=== PATIENT | female | born 1945 | race Caucasian/White ===

== ENCOUNTER 2018-05-17 21:44 | Emergency (ER) | payer MEDICARE, SELFPAY ==
[2018-05-17 21:46] VITALS: BP 175/84; PULSE 74; RESP 18; TEMP 35.9; O2SAT 94; BMI 38.7
--- NOTE | 2018-05-17 22:23 | CT_ITS ---
STUDY: CT ABDOMEN AND PELVIS WITHOUT CONTRAST REASON FOR EXAM: Female, 72 years old. Low abdominal pain RADIATION DOSAGE (If Supplied By Facility): CTDIvol = ( 18.50 ) mGy, DLP = ( 882.56 ) mGycm TECHNIQUE: Transaxial images were obtained from the lower chest to the upper thighs without oral contrast, and without intravenous contrast. Sagittal and coronal images were reconstructed. Individualized dose optimization techniques were used for this CT. COMPARISON: None. FINDINGS: There is minimal dependent atelectasis in both lung bases. There are calcified lymph nodes in the left hilum. There is no pleural effusion. The heart is normal in size. The liver is unremarkable. There is gallbladder wall thickening with surrounding stranding. There are multiple benign calcified granulomas in the spleen. The pancreas is unremarkable. The adrenal glands are unremarkable. The right kidney is unremarkable. There is no dilatation of the collecting system in the right kidney. The left kidney is unremarkable. There is no dilatation of the collecting system in the left kidney. There is a small hiatal hernia. The small bowel is unremarkable. There are diverticula in the distal colon without adjacent stranding. The appendix is visualized and appears normal. There are minimal scattered vascular calcifications. The IVC is unremarkable. The retroperitoneum is unremarkable. There is no free fluid in the abdomen. The urinary bladder is unremarkable. The uterus is normal in size and appearance. There are no abnormal masses in the adnexal regions. There are arcuate artery calcifications. There are small phleboliths scattered in the lower pelvis. The soft tissues are unremarkable. There are mild degenerative changes in the visualized spine. There are a few nonspecific sclerotic foci scattered in the pelvis. There are mild degenerative changes in both hips. CT/Abdomen/Pelvis without Cont IMPRESSION: There is gallbladder wall thickening and surrounding inflammation, suggesting acute cholecystitis. There appears to be biliary ductal dilatation. There is diverticulosis of the distal colon. There are no acute bowel abnormalities. There is no ascites, free air or significant lymphadenopathy. Electronically Signed: Krysta Ross MD at 23:33 EDT Tel Direct: [phone], Service support ,
--- NOTE | 2018-05-17 22:40 | RAD_ITS ---
STUDY: X-RAY CHEST REASON FOR EXAM: Female, 72 years old. Abdominal pain TECHNIQUE: Frontal and lateral views of the chest were obtained. COMPARISON: None. FINDINGS: The lungs are underaerated. There are no focal airspace opacities. There is no demonstrated pleural abnormality. The cardiac silhouette is normal in size. There are calcified lymph nodes in the left hilum. Normal visualized pulmonary arteries. There is atherosclerotic calcification of the thoracic aorta. There are diffuse degenerative changes of the visualized spine. There are degenerative changes in both shoulders. There is no demonstrated abnormality of the visualized upper abdomen. RAD/Chest PA and Lateral IMPRESSION: No acute cardiopulmonary abnormalities. Electronically Signed: Krysta Ross MD at 23:35 EDT Tel Direct: [phone], Service support ,
[2018-05-17 22:43] LABS: Basophil# 0.01 X10^3/uL; Basophil% 0.1 % (0-1); Eosinophil# 0.09 X10^3/uL; Eosinophils% 0.8 % (0-5); Hematocrit 42.2 % (37-47); Hemoglobin 13.9 g/dl (12.0-15.0); Lymphocyte % 13.6 % (19-41); Mean Corp Hgb Conc 32.9 g/gl (32-36); Mean Corpuscular Volume 90.9 fL (81-99); Mean Platelet Vol. 9.8 fl (6.2-12.0); Monocyte# 0.36 X10^3/uL; Monocyte% 3.3 % (0-10); Neutrophil # 9.03 X10^3/uL (2.7-7.7); Neutrophil % 82.1 % (47-70); POSITIVE COUNT NO; POSITIVE DIFFERENTIAL NO; POSITIVE MORPHOLOGY NO; Platelet Count 212 K/mm3 (150-450); RBC Distribution Width CV 12.8 % (11.6-14.6); RBC Distribution Width SD 42.2 fl (35.1-43.9); Red Blood Count 4.64 M/mm3 (4.2-5.4)
[2018-05-17 22:57] LABS: ALB/GLOB Ratio 0.9 RATIO (0.9-2.4); AST(SGOT) 15 U/L (15-37); Alanine Aminotransfer ALT/SGPT 20 U/L (13-56); Albumin, Serum 3.7 g/dL (3.2-5.0); Alkaline Phosphatase 63 U/L (45-117); Anion Gap 6 (5-15); BUN 15 mg/dL (7-18); BUN/Creat Ratio 20.6 RATIO (10-20); Calcium,Total 8.7 mg/dL (8.5-10.1); Chloride 102 mmol/L (98-107); Creatinine, Serum 0.73 mg/dL (0.55-1.02); EST Glomerular Filtration Rate 84 mL/min (>60); Est Glom Filt Rate - Afr Amer 101 mL/min (>60); Estimated Creatinine Clearance 38.94 ml/min; Glucose 134 mg/dL (74-106); Potassium 3.3 mmol/L (3.5-5.1); Protein, Total 7.7 g/dL (6.4-8.2); Sodium Level 137 mmol/L (136-145)
--- NOTE | 2018-05-17 23:13 | ED.DCSUM_ITS ---
History of Present Illness Chief Complaint: Abd Pain Informant: Patient Onset: Today Context: Gradual Onset Timing: Continuous, Waxes and wanes Quality: cramping Location: mid-upper abd Current Severity: Mild Maximum Severity: Severe Worsened by: nothing Relieved by: nothing despite having 2 BM's Associated Symptoms: radiation into mid-back when bad. no n/v/d/BRBPR/melena, sob. Narrative: At times, pain was across her upper abdomen/lower chest, but she denies any shortness of breath or lightheadedness or palpitations. He does not recall having had this pain before although she states that the fact that she has fibromyalgia has been confusing her about this pain. Saying that she cannot tell if this is fibromyalgia discomfort or not. She states that somehow she can tell she is having fibromyalgia discomfort when she pushes on her own abdomen and at times she felt that it was. She has never had any abdominal surgeries. He denies having any radiation into an arm or a shoulder. Prior similar symptoms: No - Past Medical History (1) GERD (gastroesophageal reflux disease) Status: Chronic (2) Hypertension Status: Chronic (3) Fibromyalgia Status: Chronic Past Medical History - Allergies and Home Meds Allergies/Adverse Reactions: Allergies ampicillin Allergy (Verified 05/17/18 21:50) Rash lisinopril Allergy (Verified 05/17/18 21:50) Rash Penicillins [PCN] Allergy (Verified 05/17/18 21:50) Rash Primary Care Physician: Melany Russo MD [Primary Care Provider] - Smoking Status: Never smoker Review of Systems All systems negative except as indicated Gastrointestinal: Reports: Abdominal pain Musculoskeletal: Reports: Back pain Physical Exam Vital Signs/Narrative: Vital Signs Temp Pulse Resp BP Pulse Ox 05/17/18 21:46 96.6 F L 74 18 175/84 H 94 Inital Vital Signs reviewed: Yes General: Well nourished, Well developed, - - nad Head: Normocephalic, Atraumatic Eyes: Perrl, EOMI ENT: Moist mucous membranes, No rhinorrhea Neck: Supple, Nontender Cardiovascular: Regular rate, Regular rhythm, No murmurs Respiratory: No distress, CTA bilaterally, Chest nontender Abdomen: Soft, Nondistended, Normal bowel sounds, Tender - Mildly tender diffusely.. Negative for: Guarding, Rebound tenderness, Salinas's sign Back: Nontender, Normal Inspection. Negative for: CVA tenderness Extremities: Nontender, No edema Skin: Normal color, No rash Neurological: Alert, Oriented x3, Cranial nerves II-XII grossly intact, Normal Strength, Normal Sensation Psychological: Normal affect Diagnostic/Tx/Re-eval Impressions Abdomen/Pelvis CT 05/17/18 22:23 IMPRESSION: There is gallbladder wall thickening and surrounding inflammation, suggesting acute cholecystitis. There appears to be biliary ductal dilatation. There is diverticulosis of the distal colon. There are no acute bowel abnormalities. There is no ascites, free air or significant lymphadenopathy. Electronically Signed: Krysta Ross MD at 23:33 EDT Tel Direct: [phone], Service support , Chest X-Ray 05/17/18 22:40 IMPRESSION: No acute cardiopulmonary abnormalities. Electronically Signed: Krysta Ross MD at 23:35 EDT Tel Direct: [phone], Service support , 05/17/18 22:23 CT Abd [Abdomen/Pelvis without Cont] [CT] Stat 05/17/18 22:40 Chest PA and Lateral [RAD] Stat Laboratory Results 05/17/18 05/17/18 Range/Units 22:10 22:10 WBC 11.0 (4.4-11.0) K/mm3 RBC 4.64 (4.2-5.4) M/mm3 Hgb 13.9 (12.0-15.0) g/dl Hct 42.2 (37-47) % MCV 90.9 (81-99) fL MCH 30.0 (27.0-32.0) pg MCHC 32.9 (32-36) g/gl RDW 12.8 (11.6-14.6) % RDW Differential 42.2 (35.1-43.9) fl Plt Count 212 (150-450) K/mm3 MPV 9.8 (6.2-12.0) fl Immature Gran % (Auto) 0.100 (0.0-0.9) % Neut % (Auto) 82.1 H (47-70) % Lymph % (Auto) 13.6 L (19-41) % [place] % (Auto) 3.3 (0-10) % Eos % (Auto) 0.8 (0-5) % Baso % (Auto) 0.1 (0-1) % Absolute Neuts (auto) 9.0 H (2.0-7.7) X10^3/uL Absolute Lymphs (auto) 1.50 (0.83-4.51) X10^3/ul Total Counted Not Reportable Sodium 137 (136-145) mmol/L Potassium 3.3 L (3.5-5.1) mmol/L Chloride 102 (98-107) mmol/L Carbon Dioxide 29.0 (21.0-32.0) mmol/L Anion Gap 6 (5-15) BUN 15 (7-18) mg/dL Creatinine 0.73 (0.55-1.02) mg/dL Estim Creat Clear Calc 38.94 ml/min Est GFR (MDRD) Af Amer 101 (>60) mL/min Est GFR (MDRD) Non-Af 84 (>60) mL/min BUN/Creatinine Ratio 20.6 H (10-20) RATIO Glucose 134 H (74-106) mg/dL Calcium 8.7 (8.5-10.1) mg/dL Total Bilirubin 0.30 (0.20-1.00) mg/dL AST 15 (15-37) U/L ALT 20 (13-56) U/L Alkaline Phosphatase 63 (45-117) U/L Troponin I < 0.015 (<0.045) ng/mL Total Protein 7.7 (6.4-8.2) g/dL Albumin 3.7 (3.2-5.0) g/dL Globulin 4.0 (2.2-4.2) g/dL Albumin/Globulin Ratio 0.9 (0.9-2.4) RATIO - Rhythm Strip Rhythm Strip: Sinus Rhythm Rate: 70 Ectopy: None - EKG Initial EKG Interpretation: Sinus Rhythm, No Acute Injury Pattern, LAFB, Non-Specific ST Changes - Medical Decision Making Labs show a white blood count at the high end of the normal range with a leftward shift, no bandemia. The rest of her labs including liver enzymes and lipase are normal. Clinically, her pain almost completely resolved without any treatment here. I reexamined her. She still has no Salinas sign and is barely tender in the right upper quadrant, although her CT shows some pericholecystic stranding that may be consistent with early cholecystitis. There is no pericholecystic fluid collections or stones seen or pneumobilia. She has diverticulosis without any evidence of diverticulitis or any other acute abnormality. Chest x-ray unremarkable, cardiac workup unremarkable. On further history, she states she ate a fatty meal this morning and did get worse later and throughout the day. She has been eating high fat diet lately as well. This is very likely biliary colic. No gallstones were seen on CT, however that is not a very sensitive test for gallstones. Since she is doing so well clinically, I suspect she can safely follow-up as an outpatient with an outpatient ultrasound, unless she gets worse prior following up. Discussed with Dr. Lynch, covering for the requested Dr. Tao, who agrees with this. Patient will get outpatient ultrasound tomorrow, Sunday, and follow-up on Sunday or Sunday with surgery in the office, returning to the ER for worsening problems. We discussed symptoms of acute cholecystitis, pancreatitis , and reasons to return to the ER. She is comfortable with this plan, and will attempt a no-fat diet until seen. ED Disposition - Plan for ED Patient: Disposition: Home or Assisted Living Chief Complaint: Abd Pain Diagnosis: Biliary colic Instructions: ED Abdominal Pain Gallstone Poss Referrals: Melany Russo MD [Primary Care Provider] - Susan Lynch MD [STAFF PHYSICIAN] - (Call Sunday for appointment on Sunday or Sunday)
[2018-05-18 00:16] LABS: Mucous, Urine 0 SEEN /hpf (<or=2+); Red Blood Cells-Urine 0 SEEN /hpf (0-5)
[2018-05-18 00:41] VITALS: BP 109/73; PULSE 77; RESP 18; O2SAT 96
[2018-05-18 00:42] VITALS: BP 109/73; PULSE 77; RESP 18; O2SAT 96
[2018-05-18 00:49] LABS: Color, Urine Yellow (Yellow); Glucose, Dipstick Normal (Normal); Ketone-Dipstick Negative (Negative); Leukocyte Esterase-Dipstick 500 /ul (Negative); Nitrite-Dipstick Negative (Negative); Occult Blood-Urine 25 /ul (Negative); Protein-Dipstick Negative (Negative); Urine Bilirubin Dipstick Negative (Negative); Urine Clarity Clear (Clear); Urine Urobilinogen Normal (Normal)
[2018-05-18 00:57] LABS: Bacteria RARE /hpf (None Seen); Squamous Epithelial Cells - UA 0-5 SEEN /hpf (5-10); White Blood Cells 5-10 SEEN /hpf (0-5)
== END 2018-05-18 01:02 | disposition home or self-care (01) ==
PROVIDERS: Emergency Provider Emergency Medicine; Family Provider Internal Medicine; PCP Internal Medicine
DX: K80.50 Calculus of bile duct without cholangitis or cholecystitis without obstruction (principal); K57.30 Diverticulosis of large intestine without perforation or abscess without bleeding; K21.9 Gastro-esophageal reflux disease without esophagitis; I10 Essential (primary) hypertension; M79.7 Fibromyalgia; Z79.899 Other long term (current) drug therapy
CPT/HCPCS: 71046; 74176; 80053; 81001; 84484; 85025; 93005; 99283

== ENCOUNTER → 2018-05-22 10:59 | Outpatient (CLI) | payer MEDICARE, SELFPAY | PROVIDERS: Family Provider Internal Medicine; PCP Internal Medicine; Visit Provider Emergency Medicine | DX: R10.9 Unspecified abdominal pain (principal) | CPT/HCPCS: 76705 ==

== ENCOUNTER → 2018-05-31 10:44 | Outpatient (CLI) | payer MEDICARE, SELFPAY ==
[2018-05-31 11:54] LABS: AST(SGOT) 45 U/L (15-37); Alanine Aminotransfer ALT/SGPT 226 U/L (13-56); Albumin, Serum 3.7 g/dL (3.2-5.0); Alkaline Phosphatase 86 U/L (45-117); Bilirubin, Direct 0.13 mg/dL (0.00-0.30); Cholesterol 183 mg/dL (200); High Density Lipoprotein 37 mg/dL; Protein, Total 7.7 g/dL (6.4-8.2); Triglycerides 186 mg/dL; Very Low Density Lipoprotein 37 mg/dL (5-40)
== END ==
PROVIDERS: Family Provider Internal Medicine; PCP Internal Medicine; Visit Provider Internal Medicine Cardiovascular Disease
DX: E78.5 Hyperlipidemia, unspecified (principal)
CPT/HCPCS: 36415; 80061; 80076

== ENCOUNTER → 2018-06-05 13:27 | Outpatient (CLI) | payer MEDICARE, SELFPAY | PROVIDERS: Family Provider Internal Medicine; PCP Internal Medicine; Visit Provider Internal Medicine Cardiovascular Disease | DX: R94.31 Abnormal electrocardiogram [ECG] [EKG] (principal); K80.20 Calculus of gallbladder without cholecystitis without obstruction; I10 Essential (primary) hypertension | CPT/HCPCS: 93017; 93350; Q9957; A4216; C8928 ==

== ENCOUNTER 2018-06-19 07:56 | Day surgery (SDC) | payer MEDICARE, SELFPAY ==
[2018-06-11 11:11] VITALS: BMI 37.8
[2018-06-19 08:17] LABS: Hemoglobin 13.3 g/dl (12.0-15.0); Mean Corp Hgb Conc 33.3 g/gl (32-36); Mean Corpuscular Hgb 30.3 pg (27.0-32.0); Mean Corpuscular Volume 91.1 fL (81-99); Platelet Count 173 K/mm3 (150-450); RBC Distribution Width CV 12.7 % (11.6-14.6); RBC Distribution Width SD 42.3 fl (35.1-43.9); Red Blood Count 4.39 M/mm3 (4.2-5.4); Scan Indicated on CBC? Y/N NO; White Blood Count 5.3 K/mm3 (4.4-11.0)
[2018-06-19 08:30] LABS: Anion Gap 11 (5-15); BUN 20 mg/dL (7-18); BUN/Creat Ratio 27.7 RATIO (10-20); Calcium,Total 8.8 mg/dL (8.5-10.1); Chloride 104 mmol/L (98-107); Creatinine, Serum 0.72 mg/dL (0.55-1.02); EST Glomerular Filtration Rate 85 mL/min (>60); Est Glom Filt Rate - Afr Amer 102 mL/min (>60); Estimated Creatinine Clearance 38.94 ml/min; Glucose 99 mg/dL (74-106); Potassium 3.3 mmol/L (3.5-5.1); Sodium Level 140 mmol/L (136-145)
--- NOTE | 2018-06-19 09:57 | CL.D_ITS ---
Patient Name: ANAMIKA PERES Study Date: 06/19/2018 Performing: Sheldon Pascual MD Ht: 61.02 inches 155 cm : 1945 Wt: 200.62 lbs 91 kg Age: 72 Gender: female BSA: 1.89 PROCEDURE(S) PERFORMED MO28-PWR/COR/LV CLINICAL PROFILE AND INDICATIONS Pr requires pre-op risk stratification for cholecystectomy. Indications: Suspected CAD Heart Failure: None Stress/Imaging Stress/Image Study Performed: No Angina Classification Anginal Classification w/in 2 Weeks: No symptoms CAD Presentations: Unstable angina. Other: Dynamic ECG changes. Comorbidities/Risk Factors: Hypertension CONCLUSIONS Non obstructive coronary arteries Normal LV size, wall motion,and systolic function Elevated Left Ventricular End Diastolic Pressure RECOMMENDATIONS Management as per referring Advertising Production Manager Pt is at low risk for non cardiac, cholecystectomy surgery. Manual sheath removal. Start zocor 20mg po qhs after GB surgery; repeat FLP in 6 weeks. DESCRIPTION OF PROCEDURE The patient arrived to the procedure lab. The risks and benefits of the procedure as well as a full d escription of our services here and current unavailability of surgical backup were fully explained to the patient and/or their significant other prior to the catheterization. The Timeout was completed, verifying the correct patient and procedure. The patient's procedural site was prepped and draped in the usual fashion. Local anesthetic was given subcutaneously to right groin region with Lidocaine 2%. Using a modified Seldinger technique, arterial access was obtained via the right femoral artery, a 4 Fr sheath was inserted Left Coronary Artery selective angiography was performed in multiple views us ing a 4 Fr. JL5 catheter. Right Coronary Artery selective angiography was then performed in multiple views using a 4 Fr. 3DRC catheter. Left Ventriculography was performed in [place] projection using a 4 Fr . Pigtail catheter. LV to AO pullback pressures were then recorded.The arterial sheath was pulled and manual compression applied until hemostasis is achieved. CORONARY ANGIOGRAPHY DOMINANCE: Right Dominant LEFT HEART ASSESSMENT Left Ventricular Ejection Fraction: by LV Gram 65 % Normal LV wall motion Normal Left Ventricular systolic function Elevated Left Ventricular End Diastolic Pressure LVEDP: 18 mmHg LEFT ANTERIOR DECENDING ARTERY: Non-obstructive DIAGONAL 1: Proximal - 30 % Stenosis CIRCUMFLEX ARTERY: Angiographically normal RIGHT CORONARY ARTERY: Angiographically normal RT PDA: Proximal - Angiographically normal COMPLICATIONS No Complications PROCEDURE MEDICATIONS Versed 1 mg IV Oxygen: 2 L/min via nasal cannula Potassium Chloride 10 mEq in 100cc NS 06/19/2018 09:01:23 SUMMARY OF HEMODYNAMIC DATA Time AIR REST ECG 08:37:33 AO 156/67 (102) SA 09:41:12 LV 151/-11, 21 09:48:24 LV 149/-11, 18 09:48:30 LVp 153/-10, 21 09:48:35 AOp 153/65 (100) 09:48:40 Signed By Sheldon Pascual MD On 06/19/2018 09:57:07 Sheldon Pascual MD
== END 2018-06-19 14:25 | disposition home or self-care (01) ==
LOC: CLSP 07:56
PROVIDERS: Family Provider Internal Medicine; PCP Internal Medicine; Visit Provider Internal Medicine Cardiovascular Disease
DX: R94.31 Abnormal electrocardiogram [ECG] [EKG] (principal); I10 Essential (primary) hypertension; M79.7 Fibromyalgia; K21.9 Gastro-esophageal reflux disease without esophagitis; K80.20 Calculus of gallbladder without cholecystitis without obstruction; Z79.899 Other long term (current) drug therapy; I25.10 Atherosclerotic heart disease of native coronary artery without angina pectoris
CPT/HCPCS: 36415; 80048; 85027; 93458; 99152; J7040; C1769; C1894; Q9967

== ENCOUNTER → 2018-06-24 10:45 | Outpatient (CLI) | payer MEDICARE, SELFPAY | PROVIDERS: Family Provider Internal Medicine; PCP Internal Medicine; Visit Provider Surgery | DX: Z01.810 Encounter for preprocedural cardiovascular examination (principal) ==

== ENCOUNTER 2018-07-12 11:51 | Day surgery (SDC) | payer MEDICARE, SELFPAY ==
[2018-07-12] VITALS (12 sets, daily range): BP systolic 136–162; BP diastolic 57–84; PULSE 63–77; RESP 14–18; TEMP 36.1–36.8; O2SAT 90–100; BMI 37.0
--- NOTE | 2018-07-12 | GALL_PTH ---
PATIENT: ANAMIKA PERES [place]: [facility] [place][id number] AGE/SX: 72/F ROOM: RE07/12/[address]: Dr. Sheldon Tao MD : 1945 BED: DIS: 07/12/2018 SPEC #: [id number] RECD: 07/12/18 15:05 STATUS: BONNIE REKings #: [id number] CARMEN: 07/12/18 00:[address]: Sheldon Tao DEPT: SURGICAL PATHOLOGY RECD BY: Donald Thomas ENTERED: 07/12/18 15:05 SP TYPE: FABIAN REYES DR: Dr. Melany Russo MD Tissues: Gallbladder, NOS Procedures: Surgery Specimen Level III HEADER OPERATION: Laparoscopic cholecystectomy PRE-OP DIAGNOSIS: Cholelithiasis TISSUE SUBMITTED: Gallbladder and contents MICROSCOPIC DIAGNOSIS Gallbladder, cholecystectomy: Cholesterolosis, mild chronic cholecystitis and cholelithiasis. AM:gunnar 07/15/18 MICROSCOPIC DESCRIPTION Slides are reviewed. GROSS DESCRIPTION Received is one container labeled with the patient's name and designated gallbladder and contents. The specimen consists of a gallbladder measuring 10 cm in length and up to 5 cm in diameter. The external surface is pink-amaro, smooth and glistening for the most part. Focally it is granular, hemorrhagic and contains cautery artifact. The gallbladder contains green-yellow mucoid bile and multiple mulberry, yellowish-green stones measuring in aggregate 4 x 3 x 0.5 cm and 0.1 to 0.5 cm in greatest dimension. The mucosa is bile-stained and without any mass lesions. The mucosa also shows several yellowish streaks consistent with cholesterolosis. The gallbladder wall measures up to 0.2 cm in thickness. Semiconductor Assembler sections from the gallbladder and the cystic duct are submitted in one cassette. / SJ:gunnar 07/12/18 TC:3 CPT: 55912
--- NOTE | 2018-07-12 11:56 | EKG12_ITS ---
Test Reason : PREOP Blood Pressure : / mmHG Vent. Rate : 070 BPM Atrial Rate : 070 BPM P-R Int : 178 ms QRS Dur : 084 ms QT Int : 368 ms P-R-T Axes : 043 -22 047 degrees QTc Int : 397 ms Normal sinus rhythm Normal ECG When compared with ECG of 17-MAY-2018 22:24, T wave inversion no longer evident in Inferior leads T wave inversion less evident in Lateral leads Confirmed by QUANG MAGAÑA, FAITH ([id number]), magazine editor VONNIE SCHWARTZ ([id number]) on 07/17/2018 3:53:21 PM Referred By: Sheldon Tao Confirmed By:FAITH DEL RIO MD
--- NOTE | 2018-07-12 12:28 | PCM.HP.STD ---
Problem List (1) Calculus of gallbladder with acute on chronic cholecystitis without obstruction Status: Acute History of Present Illness Date of Admission: 07/12/18 ANAMIKA PERES, is a 72 F who presents to the office today for further evaluation of symptomatic cholelithiasis. Patient was recently seen and was [facility]'s emergency department on 05/17/2018. She was having upper abdominal and lower chest discomfort. She was not complaining of any shortness of breath or lightheadedness or palpitations. Workup in the emergency department included a CAT scan which looked as if the gallbladder wall was thickened and was consistent with probable early cholecystitis. Her liver function tests at that time were all within normal limits. She subsequently underwent a gallbladder ultrasound which showed the gallbladder wall to be 4 mm positive sonographic Salinas sign. There was no pericholecystic fluid. And multiple gallstones were noted. Common bile duct measured 5 mm. She has a known history of fibromyalgia and states that the discomfort that she was having is nothing like her fibromyalgia. Patient said that this attack came on after a week long history of eating fatty foods consistent of barbecue and cake and she subsequently developed her attack after that. She presents today for evaluation and treatment. Past Medical History Past Medical History (Chronic Problems): Chronic Problems (Last Updated 06/20/18 @ 09:32 by Janet Love) Hyperlipidemia (Chronic) Atherosclerotic heart disease of [place] coronary artery without angina pectoris (Chronic 06/19/18) Mild, nonobstructive CAD per cath done @ [facility], Dr. Pascual: 30% stenosis in first diagonal, all other coronaries normal. History of left heart catheterization (Chronic 06/19/18) Mild, nonobstructive CAD [facility] 30% stenosis in first diagonal, all other coronaries normal. Abnormal EKG (Chronic) GERD (gastroesophageal reflux disease) (Chronic) Hypertension (Chronic) Fibromyalgia (Chronic) Medical History: Medical History (Last Reviewed 07/12/18 @ 12:30 by Sheldon Tao MD) Hyperlipidemia (Chronic) E78.5 Atherosclerotic heart disease of [place] coronary artery without angina pectoris (Chronic) Onset Date: 06/19/18 I25.10 Mild, nonobstructive CAD per cath done @ [facility], Dr. Pascual: 30% stenosis in first diagonal, all other coronaries normal. Dyspnea on exertion (Acute) R06.09 Cholelithiasis (Acute) K80.20 Abnormal EKG (Chronic) R94.31 GERD (gastroesophageal reflux disease) (Chronic) K21.9 Hypertension (Chronic) I10 Fibromyalgia (Chronic) M79.7 Macular degeneration H35.30 Allergies ampicillin Allergy (Verified 07/12/18 12:17) Rash lisinopril Allergy (Verified 07/12/18 12:17) Rash Penicillins [PCN] Allergy (Verified 07/12/18 12:17) Rash Home Medications: Ambulatory Orders Medication Instructions Recorded Leticia Allergy 180 mg PO PRN PRN 05/17/18 Atenolol/Chlorthalidone 0.5 tab PO DAILY 05/17/18 [Atenolol-Chlorthalidone 100-25] Docusate Sodium 200 mg PO QHS 05/17/18 Doxepin HCl 30 mg PO QHS 05/17/18 Eszopiclone 3 mg PO QHS PRN MDD fibromalgya 05/17/18 Fluticasone 0.05% 2 spry NASAL DAILY PRN 05/17/18 Omeprazole 20 mg PO DAILY 05/17/18 Potassium Chloride 1 tab PO DAILY 05/17/18 Vits A,C,E/Lutein/Minerals 2 tab PO DAILY 05/17/18 [Healthy Eyes Caplet] Calcium Carbonate/Vitamin D3 1 ea PO DAILY 05/29/18 [Calcium 600-Vit D3 500 Softgel] Multivit-Min/Iron/Folic/Lutein 1 ea PO DAILY 05/29/18 [Centrum Silver Women Tablet] Oat Bran 1,700 mg PO DAILY 05/29/18 Vitamin E 400 unit PO DAILY 05/29/18 Aspirin [Aspirin, Baby] 81 mg PO DAILY@0800 06/19/18 simvastatin 20 mg tablet 20 mg PO .COMPLEX 06/20/18 [place]-3 Fatty Acids/Fish Oil [Fish 1 each PO DAILY 07/05/18 Oil 1,000 mg Capsule] Surgical History: Surgical History (Last Reviewed 07/12/18 @ 12:30 by Sheldon Tao MD) History of left heart catheterization (Chronic) Onset Date: 06/19/18 Z98.890 Mild, nonobstructive CAD per cath done @ [facility], Dr. Pascual: 30% stenosis in first diagonal, all other coronaries normal. S/P anal fissurectomy (Acute) Z98.890, Z87.19 Smoking Status: Never smoker - *Family History Maternal Family History: Family History (Last Updated 05/30/18 @ 15:34 by Janet Love) Mother Arrhythmia Cancer Father Myocardial infarction CAD (coronary artery disease) Carotid disease, bilateral History Items: No pertinent history Review of Systems Cardiovascular: Denies: Chest Pain, Chest Pressure, Chest Tightness, Palpitations Respiratory: Denies: Cough, Hemoptysis, Shortness of breath at rest, Shortness of breath upon exertion, Wheezing Gastrointestinal: Denies: Abdominal Pain, Constipation, Diarrhea, Hematemesis, Nausea, Melena, Vomiting VTE Information - Inpt Only VTE Present on Admission: No VTE Mechan Device Prophylaxis: SCD's VTE Pharm Prophylaxis ordered?: No Reason prophylaxis not ordered:: Treatment Not Indicated Patient Problems: Active and Suspected Problems (Last Updated 06/20/18 @ 09:32 by Janet Love) Calculus of gallbladder with acute on chronic cholecystitis without obstruction (Acute) - Physical Exam Lungs: Clear to auscultation Cardiovascular: Regular rate, Regular Rhythm, No murmurs Abdomen: Bowel Sounds Present, Soft, Non Tender, Non-Distended Vital Signs Temp Pulse Resp BP Pulse Ox 97 F L 77 16 162/82 H 96 07/12/18 12:17 07/12/18 12:17 07/12/18 12:17 07/12/18 12:17 07/12/18 12:17 Oxygen Delivery Method Room Air Weight: 195 lb 15.855 oz Body Mass Index (BMI) 37.0 Assessment/Plan All Active Problems (Last Updated 06/20/18 @ 09:32 by Janet Love) Calculus of gallbladder with acute on chronic cholecystitis without obstruction (Acute) Dyspnea on exertion (Acute) Cholelithiasis (Acute) S/P anal fissurectomy (Acute) My plan is to perform a laparoscopic cholecystectomy with possible intraoperative cholangiograms. The planned surgical procedure was discussed extensively with the patient. The risks, benefits, anticipated outcomes and possible complications were mentioned. I stuff has also explained the procedure in understandable terms and the patient was given the option to take printed material concerning the planned procedure. The patient had the opportunity to ask questions concerning the planned procedure. The patient freely consents to the planned procedure.
--- NOTE | 2018-07-12 12:32 | HP.PCM_ITS ---
Problem List (1) Calculus of gallbladder with acute on chronic cholecystitis without obstruction Status: Acute History of Present Illness Date of Admission: 07/12/18 ANAMIKA PERES, is a 72 F who presents to the office today for further evaluation of symptomatic cholelithiasis. Patient was recently seen and was [facility] emergency department on 05/17/2018. She was having upper abdominal and lower chest discomfort. She was not complaining of any shortness of breath or lightheadedness or palpitations. Workup in the emergency department included a CAT scan which looked as if the gallbladder wall was thickened and was consistent with probable early cholecystitis. Her liver function tests at that time were all within normal limits. She subsequently underwent a gallbladder ultrasound which showed the gallbladder wall to be 4 mm positive sonographic [place] sign. There was no pericholecystic fluid. And multiple gallstones were noted. Common bile duct measured 5 mm. She has a known history of fibromyalgia and states that the discomfort that she was having is nothing like her fibromyalgia. Patient said that this attack came on after a week long history of eating fatty foods consistent of barbecue and cake and she subsequently developed her attack after that. She presents today for evaluation and treatment. 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 Pascual: 30% stenosis in first diagonal, all other coronaries normal. History of left heart catheterization (Chronic 06/19/18) Mild, [facility]obstructive [facility] 30% stenosis in first diagonal, all other coronaries normal. Abnormal EKG (Chronic) GERD (gastroesophageal reflux disease) (Chronic) Hypertension (Chronic) Fibromyalgia (Chronic) Medical History: Medical History (Last Reviewed 07/12/18 @ 12:30 by Sheldon Tao MD) Hyperlipidemia (Chronic) E78.5 Atherosclerotic heart disease of [place] coronary artery without angina pectoris (Chronic) Onset Date: 06/19/18 I25.10 Mild, nonobstructive CAD per cath done @ [facility], Dr. Pascual: 30% stenosis in first diagonal, all other coronaries normal. Dyspnea on exertion (Acute) R06.09 Cholelithiasis (Acute) K80.20 Abnormal EKG (Chronic) R94.31 GERD (gastroesophageal reflux disease) (Chronic) K21.9 Hypertension (Chronic) I10 Fibromyalgia (Chronic) M79.7 Macular degeneration H35.30 Allergies ampicillin Allergy (Verified 07/12/18 12:17) Rash lisinopril Allergy (Verified 07/12/18 12:17) Rash Penicillins [PCN] Allergy (Verified 07/12/18 12:17) Rash Home Medications: Ambulatory Orders Medication Instructions Recorded Leticia Allergy 180 mg PO PRN PRN 05/17/18 Atenolol/Chlorthalidone 0.5 tab PO DAILY 05/17/18 [Atenolol-Chlorthalidone 100-25] Docusate Sodium 200 mg PO QHS 05/17/18 Doxepin HCl 30 mg PO QHS 05/17/18 Eszopiclone 3 mg PO QHS PRN MDD fibromalgya 05/17/18 Fluticasone 0.05% 2 spry NASAL DAILY PRN 05/17/18 Omeprazole 20 mg PO DAILY 05/17/18 Potassium Chloride 1 tab PO DAILY 05/17/18 Vits A,C,E/Lutein/Minerals 2 tab PO DAILY 05/17/18 [Healthy Eyes Caplet] Calcium Carbonate/Vitamin D3 1 ea PO DAILY 05/29/18 [Calcium 600-Vit D3 500 Softgel] Multivit-Min/Iron/Folic/Lutein 1 ea PO DAILY 05/29/18 [Centrum Silver Women Tablet] Oat Bran 1,700 mg PO DAILY 05/29/18 Vitamin E 400 unit PO DAILY 05/29/18 Aspirin [Aspirin, Baby] 81 mg PO DAILY@0800 06/19/18 simvastatin 20 mg tablet 20 mg PO .COMPLEX 06/20/18 [place]-3 Fatty Acids/Fish Oil [Fish 1 each PO DAILY 07/05/18 Oil 1,000 mg Capsule] Surgical History: Surgical History (Last Reviewed 07/12/18 @ 12:30 by Sheldon Tao MD) History of left heart catheterization (Chronic) Onset Date: 06/19/18 Z98.890 Mild, nonobstructive CAD per cath done @ [facility], Dr. Pascual: 30% stenosis in first diagonal, all other coronaries normal. S/P anal fissurectomy (Acute) Z98.890, Z87.19 Smoking Status: Never smoker - *Family History Maternal Family History: Family History (Last Updated 05/30/18 @ 15:34 by Janet Love) Mother Arrhythmia Cancer Father Myocardial infarction CAD (coronary artery disease) Carotid disease, bilateral History Items: No pertinent history Review of Systems Cardiovascular: Denies: Chest Pain, Chest Pressure, Chest Tightness, Palpitations Respiratory: Denies: Cough, Hemoptysis, Shortness of breath at rest, Shortness of breath upon exertion, Wheezing Gastrointestinal: Denies: Abdominal Pain, Constipation, Diarrhea, Hematemesis, Nausea, Melena, Vomiting VTE Information - Inpt Only VTE Present on Admission: No VTE Mechan Device Prophylaxis: SCD's VTE Pharm Prophylaxis ordered?: No Reason prophylaxis not ordered:: Treatment Not Indicated Patient Problems: Active and Suspected Problems (Last Updated 06/20/18 @ 09:32 by Janet Love) Calculus of gallbladder with acute on chronic cholecystitis without obstruction (Acute) - Physical Exam Lungs: Clear to auscultation Cardiovascular: Regular rate, Regular Rhythm, No murmurs Abdomen: Bowel Sounds Present, Soft, Non Tender, Non-Distended Vital Signs Temp Pulse Resp BP Pulse Ox 97 F L 77 16 162/82 H 96 07/12/18 12:17 07/12/18 12:17 07/12/18 12:17 07/12/18 12:17 07/12/18 12:17 Oxygen Delivery Method Room Air Weight: 195 lb 15.855 oz Body Mass Index (BMI) 37.0 Assessment/Plan All Active Problems (Last Updated 06/20/18 @ 09:32 by Janet Love) Calculus of gallbladder with acute on chronic cholecystitis without obstruction (Acute) Dyspnea on exertion (Acute) Cholelithiasis (Acute) S/P anal fissurectomy (Acute) My plan is to perform a laparoscopic cholecystectomy with possible intraoperative cholangiograms. The planned surgical procedure was discussed extensively with the patient. The risks, benefits, anticipated outcomes and possible complications were mentioned. I stuff has also explained the procedure in understandable terms and the patient was given the option to take printed m aterial concerning the planned procedure. The patient had the opportunity to ask questions concerning the planned procedure. The patient freely consents to the planned procedure.
--- NOTE | 2018-07-12 13:05 | PCM.OPRPT ---
Problem List (1) Calculus of gallbladder with acute on chronic cholecystitis without obstruction Status: Acute Report of Operation Date of Procedure: 07/12/18 Pre-Operative Diagnosis: k80.12 acute on chronic cholecystitis with cholelithiasis Post-Operative Diagnosis: Same Surgery/Procedure Performed:: Laparoscopic cholecystectomy Type of Anesthesia:: General Anesthesiologist: Dionte Robertson Specimen's removed: Gallbladder Estimated Blood Loss (mL): < 25 cc - Admit VTE Documentation VTE Present on Admission: No VTE Mechan Device Prophylaxis: SCD's VTE Pharm Prophylaxis ordered?: No Reason prophylaxis not ordered:: Treatment Not Indicated
--- NOTE | 2018-07-12 13:08 | DCINST_ITS ---
Discharge Diet: Light diet - advance as tolerated Discharge Activity: May Not Drive - for 2-3 days or while taking narcotic pain medications., - - Do not drive, work heavy equipment or sign legal documents for 24 hours. May shower in (days): 1 - with the bandage in place. Additional Activity Instructions:: Pain medication may cause nausea. You should typically eat light foods as you take your pain medications. Pain medication may also cause constipation. If this is a problem for you, please discuss with your doctor. Call your doctor if your incision/area has: Continuous Slow Oozing, Sudden Increased Bleeding, Increased Pain/ Swelling, Increased Redness, Foul Smelling Discharge Call your doctor if you observe: Fever of 101 or Higher Suture Line Care: Avoid Pulling/Pushing, Avoid Pinching/Bending Additional Dressing/Incision Instructions:: Leave operative bandaids on for 2 days. When you remove dressing, leave Steri-Strips on until your follow-up appointment, or until the Steri-Strips fall off on their own. Allergies/Adverse Reactions: Allergies ampicillin Allergy (Verified 07/12/18 12:17) Rash lisinopril Allergy (Verified 07/12/18 12:17) Rash Penicillins [PCN] Allergy (Verified 07/12/18 12:17) Rash Medications to take at Discharge Leticia Allergy 180 mg PO PRN PRN 05/17/18 Atenolol/Chlorthalidone [Atenolol-Chlorthalidone 100-25] 0.5 tab PO DAILY 05/17/18 Docusate Sodium 200 mg PO QHS 05/17/18 Doxepin HCl 30 mg PO QHS 05/17/18 Eszopiclone 3 mg PO QHS PRN MDD fibromalgya 05/17/18 Fluticasone 0.05% 2 spry NASAL DAILY PRN 05/17/18 Omeprazole 20 mg PO DAILY 05/17/18 Potassium Chloride 1 tab PO DAILY 05/17/18 Vits A,C,E/Lutein/Minerals [Healthy Eyes Caplet] 2 tab PO DAILY 05/17/18 Calcium Carbonate/Vitamin D3 [Calcium 600-Vit D3 500 Softgel] 1 ea PO DAILY 05/29/18 Multivit-Min/Iron/Folic/Lutein [Centrum Silver Women Tablet] 1 ea PO DAILY 05/29/18 Oat Bran 1,700 mg PO DAILY 05/29/18 Vitamin E 400 unit PO DAILY 05/29/18 Aspirin [Aspirin, Baby] 81 mg PO DAILY@0800 06/19/18 simvastatin 20 mg tablet 20 mg PO .COMPLEX 06/20/18 [place]-3 Fatty Acids/Fish Oil [Fish Oil 1,000 mg Capsule] 1 each PO DAILY 07/05/18 Oxycodone HCl/Acetaminophen [Percocet 5/325] 1 - 2 tab PO Q4H PRN PRN 5 Days #30 tab 07/12/18 The following prescriptions were given: Oxycodone HCl/Acetaminophen [Percocet 5/325] 1 - 2 tab PO Q4H PRN PRN 5 Days #30 tab PRN Reason: Pain Primary Care Physician: Melany Russo MD [Primary Care Provider] - Test Results: Test results from this visit will be discussed in further detail at your follow- up appointment, if applicable. Please Follow Up With: Sheldon Tao MD - Please call [phone] to schedule an appointment. When: 7 days after your surgery.
[2018-07-12] MEDS: Bupivacaine Mpf 0.5% 30 ML VIAL (13:45)
--- NOTE | 2018-07-12 13:49 | PCM.OPRPT ---
Problem List (1) Calculus of gallbladder with acute on chronic cholecystitis without obstruction Status: Acute Report of Operation Date of Procedure: 07/12/18 Pre-Operative Diagnosis: k80.12 acute on chronic cholecystitis with cholelithiasis Post-Operative Diagnosis: Same Surgery/Procedure Performed:: Laparoscopic cholecystectomy Type of Anesthesia:: General Anesthesiologist: Dionte Robertson Specimen's removed: Gallbladder Estimated Blood Loss (mL): < 25 cc Description of Procedure: Patient was brought into the operating room. Placed in the supine position. Under excellent general endotracheal sedation the abdomen was sterilely prepped and draped in usual fashion. Local was injected in for umbilically. Dissection was carried down to the fascia. The fascia was grasped with a Heidi's. Varies needle was placed inside the abdomen. The abdomen was insufflated to 15 torr. A 10/12 trocar was placed. Patient was placed in the head up and rotated to the left position. A subxiphoid trocar #5 was placed, inferior to the this another #5 trocar was placed, laterally a #5 trocar placed, all these under direct visualization without injury to underlying structures. Moderate amount of omental adhesions were taken down. The fundus of the gallbladder was grasped and retracted in a cephalad direction. Infundibulum was grasped retracted laterally. I dissected out the cystic duct. Hemoclips were placed proximally and distally and the duct was ligated. The cystic artery was identified. Hemoclips were placed proximally and distally. The artery was ligated. The gallbladder was delivered from the gallbladder bed with use of electrocautery. Placed a specimen a specimen bag and delivered through the umbilical port without spillage of any bile. I used electrocautery on the liver edge and I placed a small piece of Surgicel on the base of it very raw liver edge. There was no active bleeding identified. I removed the trochars under direct visualization. Good hemostasis was noted. I closed the fascia the umbilical port with a [id number] stitch of 0 Vicryl. Skin incisions were closed with septicum stitches of 4-0 Monocryl. Steri-Strips were applied. Sterile dressings were applied. The patient tolerated the procedure well. - Admit VTE Documentation VTE Present on Admission: No VTE Mechan Device Prophylaxis: SCD's VTE Pharm Prophylaxis ordered?: No Reason prophylaxis not ordered:: Treatment Not Indicated
[2018-07-12] MEDS: Acetaminophen 325 MG Tablet PO (15:37)
== END 2018-07-12 17:00 | disposition home or self-care (01) ==
LOC: SDC 11:54 → AC 11:55
PROVIDERS: Family Provider Internal Medicine; PCP Internal Medicine; Referring Provider Surgery; Visit Provider Surgery
PROC: (CPT 47610; principal; 2018-07-12 13:45)
DX: K80.12 Calculus of gallbladder with acute and chronic cholecystitis without obstruction (principal); K21.9 Gastro-esophageal reflux disease without esophagitis; Z79.899 Other long term (current) drug therapy; I10 Essential (primary) hypertension; M79.7 Fibromyalgia; E78.5 Hyperlipidemia, unspecified; I25.10 Atherosclerotic heart disease of native coronary artery without angina pectoris; H35.30 Unspecified macular degeneration; Z79.82 Long term (current) use of aspirin
CPT/HCPCS: 00790; 47562; 88304; 93005; J7120; J2405

== ENCOUNTER → 2018-09-06 11:51 | Outpatient (CLI) | payer MEDICARE, SELFPAY ==
[2018-07-12 12:17] VITALS: BMI 37.0
[2018-09-06 13:19] LABS: AST(SGOT) 19 U/L (15-37); Alanine Aminotransfer ALT/SGPT 22 U/L (13-56); Albumin, Serum 4.1 g/dL (3.2-5.0); Alkaline Phosphatase 66 U/L (45-117); Cholesterol 169 mg/dL (200); Globulin 3.9 g/dL (2.2-4.2); High Density Lipoprotein 46 mg/dL; Triglycerides 67 mg/dL; Very Low Density Lipoprotein 13 mg/dL (5-40)
--- OUTSIDE RECORDS SUMMARY | 2018-11-01 10:47 | XMS RPT_ITS ---
:1945 Author Organization [place] Support Name Relationship Address Phone KRISTOFER MOORE Unavailable [address] + [place] [address] CHARLINE MOORE Unavailable [address] + [place] [address] R Unavailable Unavailable Unavailable MOORE, KRISTOFER Unavailable [address] + [place] [address] CHARLINE MOORE Unavailable [address] + [place] [address] R Unavailable Unavailable Unavailable MOORE, KRISTOFER Unavailable [address] + [place] [address] CHARLINE MOORE Unavailable [address] + [place] [address] R Unavailable Unavailable Unavailable MOORE, KRISTOFER Unavailable [address] + [place] [address] CHARLINE MOORE Unavailable [address] + [place] [address] R Unavailable Unavailable Unavailable MOORE, KRISTOFER Unavailable [address] + [place] [address] CHARLINE MOORE Unavailable [address] + [place] [address] R Unavailable Unavailable Unavailable MOORE, KRISTOFER Unavailable [address] + [place] [address] CHARLINE MOORE Unavailable [address] + [place] [address] R Unavailable Unavailable Unavailable MOORE, KRISTOFER Unavailable [address] + [place] [address] CHARLINE MOORE Unavailable [address] + [place] [address] R Unavailable Unavailable Unavailable MOORE, KRISTOFER Unavailable [address] + [place] [address] CHARLINE MOORE Unavailable [address] + [place] [address] R Unavailable Unavailable Unavailable MOORE, KRISTOFER Unavailable [address] + [place] [address] CHARLINE MOORE Unavailable [address] + [place] [address] R Unavailable Unavailable Unavailable MOORE, KRISTOFER Unavailable [address] + [place] [address] CHARLINE MOORE Unavailable [address] + [place] [address] R Unavailable Unavailable Unavailable MOORE, KRISTOFER Unavailable [address] + [place] [address] CHARLINE MOORE Unavailable [address] + [place] [address] R Unavailable Unavailable Unavailable MOORE, KRISTOFER Unavailable [address] + [place] [address] CHARLINE MOORE Unavailable [address] + [place] [address] R Unavailable Unavailable Unavailable MOORE, KRISTOFER Unavailable [address] + [place] [address] CHARLINE MOORE Unavailable [address] + [place] [address] R Unavailable Unavailable Unavailable MOORE, KRISTOFER Unavailable [address] + [place] [address] CHARLINE MOORE Unavailable [address] + [place] [address] R Unavailable Unavailable Unavailable MOORE, KRISTOFER Unavailable [address] + [place] [address] CHARLINE MOORE Unavailable [address] + [place] [address] R Unavailable Unavailable Unavailable MOORE, KRISTOFER Unavailable Unavailable + CHARLINE MOORE Unavailable [address] + [place] [address] R Unavailable Unavailable Unavailable MOORE, KRISTOFER Unavailable . + [place] [address] CHARLINE MOORE Unavailable [address] + [place] [address] R Unavailable Unavailable Unavailable MOORE, KRISTOFER Unavailable [address] + [place] [address] CHARLINE MOORE Unavailable [address] + [place] [address] R Unavailable Unavailable Unavailable MOORE, KRISTOFER Unavailable . + [place] [address] CHARLINE MOORE Unavailable [address] + [place] [address] R Unavailable Unavailable Unavailable MOORE, KRISTOFER Unavailable Unavailable + CHARLINE MOORE Unavailable [address] + [place] [address] R Unavailable Unavailable Unavailable MOORE, KRISTOFER Unavailable Unavailable + CHARLINE MOORE Unavailable [address] + [place] [address] R Unavailable Unavailable Unavailable Care Team Providers Name Role Phone TALAMPAS, ADEEL D Referring Unavailable TALAMPAS, ADEEL D Attending Unavailable TALAMPAS, ADEEL D Referring Unavailable VICTORIA THOMPSON Attending Unavailable TALAMPAS, ADEEL D Referring Unavailable TALAMPAS, ADEEL D Attending Unavailable TALAMPAS, ADEEL D Referring Unavailable Talampas, Adeel Primary Care Unavailable ROBY GALLO Attending Unavailable Sheldon Tao Attending Unavailable Talampas, Adeel Referring Unavailable ROBY GALLO Attending Unavailable ROBY GALLO Referring Unavailable Talampas, Adeel Primary Care Unavailable Sheldon Tao Attending Unavailable Talampas, Adeel Referring Unavailable Sheldon Tao Attending Unavailable Talampas, Adeel Referring Unavailable Talampas, Adeel Primary Care Unavailable Sheldon Tao Attending Unavailable Sheldon Tao Referring Unavailable Talampas, Adeel Primary Care Unavailable Sheldon Pascual Attending Unavailable Talampas, Adeel Referring Unavailable Talampas, Adeel Primary Care Unavailable Pascual, Sheldon Attending Unavailable Pascual, Sheldon Referring Unavailable Talampas, Adeel Primary Care Unavailable Pascual, Sheldon Attending Unavailable Pascual, Sheldon Referring Unavailable Talampas, Adeel Primary Care Unavailable Pascual, Sheldon Attending Unavailable Pascual, Sheldon Referring Unavailable Talampas, Adeel Primary Care Unavailable Kate, Danna A Attending Unavailable Talampas, Adeel Referring Unavailable Pascual, Sheldon Attending Unavailable Pascual, Sheldon Referring Unavailable Talampas, Adeel Primary Care Unavailable Pascual, Sheldon Attending Unavailable Pascual, Sheldon Referring Unavailable [place], Sheldon Attending Unavailable [place], Sheldon Referring Unavailable Talampas, Adeel Primary Care Unavailable Aislinn, Sheldon Attending Unavailable [place], Sheldon Referring Unavailable Talampas, Adeel Primary Care Unavailable [place], Sheldon Consulting Unavailable Pascual, Sheldon Attending Unavailable Pascual, Sheldon Referring Unavailable Aislinn, Sheldon Attending Unavailable Talampas, Adeel Referring Unavailable Malu, Deny Attending Unavailable [place], Sheldon Referring Unavailable Referred, Self Attending Unavailable Talampas, Adeel Primary Care Unavailable Pascual, Sheldon Attending Unavailable Pascual, Sheldon Referring Unavailable Talampas, Adeel Primary Care Unavailable Pascual, Sheldon Attending Unavailable Talampas, Adeel Referring Unavailable PROBLEMS PROBLEMS DATE TYPE CONDITION / CODE ATTENDING STATUS SOURCE 09/12/2018 Unknown E78.5 - Ankur Sheldon Active [place] Hyperlipidemia, Community unspecified / Hospital E78.5(ICD-10) Repository 09/12/2018 Unknown I25.10 - Sheldon Pascual Active [place] Atherosclerotic heart Community disease [facility] coronary artery Repository without angina pectoris / I25.10(ICD-10) 08/06/2018 Active Hypokalemia / NA Active [place] E87.6(ICD-10) Clinic Main [place] Repository 08/08/2018 Unknown Z51.89 - Encounter for [place], Active [place] other specified [facility] aftercare / Hospital Z51.89(ICD-10) Repository 07/12/2018 Unknown K80.12 - Calculus of [place]isl[place], Active [place] gallbladder with acute [facility] and chronic Hospital cholecystitis without Repository obstruction / K80.12(ICD-10) 08/19/2018 Unknown I10 - Essential Malu, Deny Active [place] (primary) hypertension Community / I10(ICD-10) Hospital Repository 07/17/2018 Unknown R94.31 - Abnormal Sheldon Pascual Active [place] electrocardiogram Community [ECG] [EKG] / Hospital R94.31(ICD-10) Repository 05/30/2018 Unknown K80.20 - Calculus of Sheldon Pascual Active [place] gallbladder without Community cholecystitis without Hospital obstruction / Repository K80.20(ICD-10) 05/30/2018 Unknown Z01.810 - Encounter Sheldon Pascual for preprocedural [facility] Hospital examination / Repository Z01.810(ICD-10) 08/03/2015 Active Essential (primary) NA Active [place] hypertension / Clinic Main I10(ICD-10) [place] Repository 01/25/2018 Active Impaired fasting NA Active [place] glucose / Clinic Main R73.01(ICD-10) [place] Repository PROCEDURES PROCEDURES No Procedure Records FoundRESULTS RESULTS CARDIOLOGY VISIT Observed: 09/12/2018 Status: F Source: [place] 11:24 AM [facility] [place] [facility] [address] [place] [address] OFFICE VISIT Date of Service: 09/12/18 MR#: [id number] Acct: [id number] Name: ANAMIKA LI Rep #: [id number] : 1945 Provider: Sheldon Pascual MD Age/Sex: 73/F [place] [facility] [place] Status: Signed HPI HPI Chief Complaint: cardiac risk stratification Details: ANAMIKA LI, is a 72 F who presents to the office today for cardiac risk stratification for upcoming gallbladder surgery by Dr. Tao. Patient is a 72-year-old nondiabetic non-smoking female, with hypertension which is well-controlled, unknown cholesterol, no previous cardiovascular disease. Patient denies any chest pain, angina, shortness of breath or dyspnea on exertion, and is recently been under a significant amount of psychosocial stress due to her hot water tank breaking in her landlord not fixing it. Patient developed a gallbladder attack with abdominal pain requiring visitation to [facility] ER on 05/17/18. At that time an EKG was performed which showed normal sinus rhythm with what appeared to be dynamic anterior lateral T-wave and ST segment depression. Patient was found by ultrasound to have cholelithiasis and mild gallbladder wall thickening and positive sonographic [place] sign diagnostic for acute cholecystitis. Patient was referred to our office for cardiac risk stratification given the abnormal EKG. Patient underwent a stress echocardiogram on 06/05/18 which was negative for inducible ischemia. Nonetheless out of an abundance of caution she underwent a diagnostic coronary angiogram on 06/19/18 which demonstrated nonobstructive coronary disease, normal LV function, and elevated LVEDP. She denies any previous CVA. She is asymptomatic from a chest pain standpoint. Patient underwent successful cholecystectomy and is now here in follow-up. Her symptoms have completely resolved. She feels great. She is taking and tolerating her medicines well. She has no cardiac symptoms at this time. In our office today her blood pressure is 120/70, pulse is 56 and regular. Her physical exam demonstrates moderate obesity, clear lungs bilaterally, regular rate and rhythm, normal S1/S2, no S3 or S4. No murmurs are detected. She has no edema. Lipids as of 09/06/18 show an LDL of 110 and HDL of 46. Intake Vital Signs09/12/18 Height 5 ft 1 in 09/12/18 Weight: 199 lb 09/12/18 Body Mass Index (BMI) 37.5 09/12/18 Blood Pressure 120/70 Intake Visit Reasons: F/U AFTER GALLBLADDER SURG PER DJN Allergies ampicillin Allergy (Verified 09/12/18 11:09) Rash lisinopril Allergy (Verified 09/12/18 11:09) Rash Penicillins [PCN] Allergy (Verified 09/12/18 11:09) Rash simvastatin Adverse Reaction (Severe, Verified 09/12/18 11:09) Myalgias, flu like sx Medications Leticia Allergy 180 mg PO PRN PRN 05/17/18 [History Confirmed 09/12/18] Atenolol/Chlorthalidone [Atenolol-Chlorthalidone 100-25] 0.5 tab PO DAILY 05/17/18 [History Confirmed 09/12/18] Docusate Sodium 200 mg PO QHS 05/17/18 [History Confirmed 09/12/18] Doxepin HCl 30 mg PO QHS 05/17/18 [History Confirmed 09/12/18] Eszopiclone 3 mg PO QHS PRN MDD fibromalgya 05/17/18 [History Confirmed 09/12/18] Fluticasone 0.05% 2 spry NASAL DAILY PRN 05/17/18 [History Confirmed 09/12/18] Omeprazole 20 mg PO DAILY 05/17/18 [History Confirmed 09/12/18] Potassium Chloride 1 tab PO DAILY 05/17/18 [History Confirmed 09/12/18] Vits A,C,E/Lutein/Minerals [Healthy Eyes Caplet] 2 tab PO DAILY 05/17/18 [History Confirmed 09/12/18] Calcium Carbonate/Vitamin D3 [Calcium 600-Vit D3 500 Softgel] 1 ea PO DAILY 05/29/18 [History Confirmed 09/12/18] Multivit-Min/Iron/Folic/Lutein [Centrum Silver Women Tablet] 1 ea PO DAILY 05/29/18 [History Confirmed 09/12/18] Oat Bran 1,700 mg PO DAILY 05/29/18 [History Confirmed 09/12/18] Vitamin E 400 unit PO DAILY 05/29/18 [History Confirmed 09/12/18] Aspirin [Aspirin, Baby] 81 mg PO DAILY@0800 06/19/18 [History Confirmed 09/12/18] Peoa-3 Fatty Acids/Fish Oil [Fish Oil 1,000 mg Capsule] 1 ea PO DAILY 07/05/18 [History Confirmed 09/12/18] cholecalciferol (vitamin D3) 1,000 unit tablet 1,000 unit PO DAILY 09/12/18 [History Confirmed 09/12/18] gemfibrozil 600 mg tablet 600 mg PO BID #180 tab 09/12/18 [Rx Confirmed 09/12/18] [facility] Medical History Hyperlipidemia (Chronic) Atherosclerotic heart disease of [place] coronary artery without angina pectoris (Chronic 06/19/18) Dyspnea on exertion (Acute) Cholelithiasis (Acute) Abnormal EKG (Chronic) GERD (gastroesophageal reflux disease) (Chronic) Hypertension (Chronic) Fibromyalgia (Chronic) Macular degeneration (Acute) Surgical History History of left heart catheterization (Chronic 06/19/18) S/P anal fissurectomy (Acute) S/P laparoscopic cholecystectomy (Acute 07/12/18) Family History Mother , of cancer Arrhythmia Cancer Father , of [place] Myocardial infarction CAD (coronary artery disease) Carotid disease, bilateral Social History Smoking Status: Never smoker alcohol intake: never ROS Const Const: Positive for other (Feels well since gallbladder out, but has rt.sciatic pain.); negative for fatigue, weakness, body ache, fever(s), headache(s), chills, frequent falls, night sweats, daytime sleepiness, difficulty sleeping, excessive sweating, weight gain, weight loss, increased appetite, poor appetite or anorexia Eyes Eyes: Negative for blind spots, loss of peripheral vision, transient loss of vision, blurry vision, change in vision, double vision, floaters, tunnel vision or other ENT ENT: Negative for headache(s), dizziness, hearing loss, tinnitus, Nosebleed/epistaxis, balance problems, post nasal drip, lip swelling, tongue swelling, bleeding gums, hoarseness, neck pain, dry mouth or other Cardio Chest Pain: No Palpitations: No Edema: None Muscle aches with walking: None Resp Respiratory: Negative for SOB with activity, SOB at rest, SOB orthopnea\SOB lying down, Cough, Coughing up blood/hemoptysis, chest congestion, pain on inspiration, snoring, stridor, wheezing, crackles, paroxysmal nocturnal dyspnea or other GI GI: Negative nausea, vomiting, heartburn, constipation, belching, bloating, cramping, vomiting blood/hematemesis, bright, red blood in stools, black,tarry stools, loose stools, Difficulty Swallowing or other : Negative for hematuria, frequent nighttime urination/ nocturia, erectile dysfunction or abnormal vaginal bleeding Musc Musc: Negative for balance problems, muscle aches/ myalgia, muscle weakness or joint pain Skin Skin: Negative redness, non-healing lesions, rash, unusual bruising, skin ulcer, wounds, jaundice or other Neuro Neuro: Negative for weakness, headache(s), frequent falls, blurry vision, double vision, dizziness, lightheadedness, near syncope, syncope, orthostatic symptoms, confusion, memory loss, restless legs, vertigo, seizures, lack of coordination or other Mayur Hematologic/Lymphatic: Negative for easy bleeding, easy bruising, enlarged lymph nodes or other Endo Endo: Negative for fatigue, excessive sweating, cold intolerance, heat intolerance, flushing, increased thirst/drinking, increased hunger, hair loss, hair growth or other Psych Psych: Negative for anxiety, depression, thoughts of harming anyone, thoughts of harming yourself, visual hallucinations, panic attacks or audible hallucinations Allergy Allergy/Immunology: Negative for lip swelling, Negative for tongue swelling, Negative for rash, Negative for throat swelling, Negative for hives Cardiology Exam Const Appearance: cooperative, healthy appearing and no acute distress Nutritional Appearance: well nourished Orientation: alert, oriented x3 and oriented to person Head Head: normal to inspection, atraumatic and normocephalic Nose: external nose normal Face and Sinus: face symmetric Mouth: oral mucosae normal Eyes General: appearance normal, both eyes and all related structures Eyelids: eyelids normal Conjunctivae: conjunctivae normal Pupils: PERRL and normal by confrontation EOM: EOM intact bilaterally Neck Neck: normal visual inspection and full ROM Carotids: normal carotid upstroke Chest Chest inspection: normal inspection of the chest Auscultation: Bilateral: Clear to Auscultation Cardio Palpation: normal PMI Rate: regular rate Rhythm: regular rhythm Heart sounds: S1 normal and S2 normal GI GI: normal to inspection, no hepatosplenomegaly and bowel sounds present Neuro General: alert, oriented x3, awake, CN's II-XI intact bilaterally and moves all extremities Skin Skin: no rashes or lesions noted Extremities Pulses: Normal: Right Femoral Pulse, Left Femoral Pulse, Right Dorsalis Pedis Pulse, Left Dorsalis Pedis Pulse, Right Posterior Tibial Pulse, Left Posterior Tibial Pulse, Right Radial Pulse, Left Radial Pulse Lower Extremity Edema: None: Bilateral Psych Psychological: normal affect Assessment AND Plan 1. Atherosclerotic heart disease of [place] coronary artery without angina pectoris I25.10 Mild, nonobstructive CAD per cath done @ [facility], Dr. Pascual: 30% stenosis in first diagonal, all other coronaries normal. Plan 1. Coronary artery disease: No exertional anginal symptoms at this time. No indication for any additional testing. She has minimal nonobstructive coronary disease and is asymptomatic. I recommended she continue baby aspirin, atenolol/chlorthalidone. 2. Hyperlipidemia E78.5 Plan 2. Hyperlipidemia: Her LDL and HDL cholesterol are fairly well-controlled. Continue gemfibrozil and omega-3 fatty acids. 3. Return office in 6 months. This note was generated using a voice recognition system and there may be incorrect words, spelling or punctuation that were not noted when reviewing the office note prior to saving. Plan Detail Other Medications Refilled: Follow Up +6M ([place]) Coding Level of Care Code Off vis,est,level 3 Diagnoses Atherosclerotic heart disease of [place] coronary artery without angina pectoris I25.10 Hyperlipidemia E78.5 Coding Level of Care Code Off vis,est,level 3 Diagnoses Atherosclerotic heart disease of [place] coronary artery without angina pectoris I25.10 Hyperlipidemia E78.5 09/12/18 1124 <Electronically signed by Sheldon Pascual MD> Date Sheldon Pascual MD Cosigner Signature: Date (if applicable) CC: Adeel Russo MD LIVER PROFILE Collected: 09/06/2018 Status: F Source: [place] 11:57 AM [facility] [place] TYPE CODE TESTS RESULT OUT OF RANGE REFERENCE UNITS LAB L501.1500 6.4-8.2 g/dL Normal T PROT 8.0 LAB L501.1800 3.2-5.0 g/dL Normal ALB 4.1 LAB L501.1950 2.2-4.2 g/dL Normal GLOB 3.9 LAB L501.4100 15-37 U/L Normal AST 19 LAB L501.4305 45-117 U/L Normal ALK P 66 LAB L501.4405 13-56 U/L Normal ALT 22 LAB L501.4600 0.20-1.00 mg/dL Normal T BILI 0.50 LAB L501.4700 0.00-0.30 mg/dL Normal D BILI 0.10 Performed By: #### L500.3400, L500.4100 #### [facility] [address] [place], [address] LIPID PROFILE Collected: 09/06/2018 Status: F Source: [place] 11:57 [facility] REPOSITORY TYPE CODE TESTS RESULT OUT OF RANGE REFERENCE UNITS LAB L501.4900 200 mg/dL Normal CHOL 169 Result Comment: <200 mg/dL Desirable 200-240 mg/dL Borderline >240 mg/dL High Risk LAB L501.5000 mg/dL Normal TRIG 67 Result Comment: The drugs N-Acetylcysteine and Metamizole may falsely depress this assay. Serum Triglycerides Reference Interval Normal <150 mg/dL Borderline high 150 - 199 mg/dL High 200 - 499 mg/dL Very High > or = 500 mg/dL LAB L501.6400 mg/dL Normal HDL 46 Result Comment: The drugs N-Acetylcysteine and Metamizole may falsely depress this assay. Reference Range HDL <40 mg/dL Low HDL Cholesterol HDL >or= 60 mg/dL High HDL Cholesterol LAB L501.6500 0-130 mg/dL Normal LDL 110 LAB L501.6600 5-40 mg/dL Normal VLDL 13 Performed By: #### L500.3400, L500.4100 #### [facility] [address] [place], [address] PROGRESS Observed: 08/16/2018 Status: COMPLETED Source: [place] 1:32 PM [facility] REPOSITORY HNO ID: [id number] Author: Tammie Mesa LPN Service: (none) Author Type: (none) Type: Progress Notes Filed: 08/23/2018 10:49 PM Note Text: received approval from [facility] for doxepin - good until 08/15/2020 PROGRESS Observed: 08/12/2018 Status: COMPLETED Source: [place] 12:33 PM [facility] REPOSITORY HNO ID: [id number] Author: Adeel Russo Service: (none) Author Type: Physician Type: Progress Notes Filed: 08/23/2018 10:49 PM Note Text: Patient presents with: Recheck: Follow up Imm/Inj: Flu Vaccine SUBJECTIVE: Anamika Li is a 73 year old year old lady here today for 6 month follow up appointment for review of medical conditions. Had sore throat and swelling of throat and aching from Zocor 20mg daily. Stopped after 10 days since got bad with symptoms. Stopped the med. Dr. Pascual's office to call with alternative med. Lunesta 3mg at HS and Doxepin 2 pills at HS needed for sleep.Has been taking current dose. Lower dose note effective. Needs to keep sleep on track to control depression and anxiety. Noted issues with right index finger from computer mouse. Plays computer games, etc. Finger gets stiff. Continues to need Lunesta 3 mg nightly for insomnia. Had tried other formulary meds over the years and nothing worked as well without adverse effects. PAST MEDICAL HISTORY Diagnosis Date - Carpal tunnel syndrome - Depressive disorder, not elsewhere classified - Esophageal reflux - Macular degeneration (senile) of retina, unspecified - Myalgia and myositis, unspecified - Obesity, unspecified - Unspecified essential hypertension Current Outpatient Prescriptions: aspirin, enteric coated (ASPIRIN, ENTERIC COATED) 81 mg EC tablet Take 81 mg by mouth once daily. eszopiclone (LUNESTA) 3 mg tab Take 1 tablet by mouth at bedtime as needed for up to 90 days. AT BEDTIME. Atenolol-Chlorthalidone 100-25 mg per tablet TAKE 1/2 TABLET ONE TIME DAILY fluticasone (FLONASE) 50 mcg/actuation nasal spray USE 2 SPRAYS IN EACH NOSTRIL ONE TIME DAILY omeprazole (PRILOSEC) 20 mg capsule TAKE 1 CAPSULE EVERY DAY potassium chloride ER (K-DUR, KLOR-CON) 10 mEq tablet TAKE 1 TABLET EVERY DAY fexofenadine (LETICIA ALLERGY) 180 mg tablet Take 1 tablet by mouth once daily. vit A,C,K-Iqnl-Denczw 7,160-113-100 nwej-yw-ruas ORAL Tab Take by mouth. As directed. Lutein 10 mg ORAL Tab Take by mouth. As directed. cholecalciferol(VITAMIN D 2,000 UNIT CAP) Take one(1) tablet daily. naproxen sodium(ALEVE 220 MG TAB) Take one(1) tablet twice daily. OMEGA 3 550 MG CAP Take one(1) tablet daily. OAT BRAN 500 MG TAB 2 tabs in am MULTIVITAMIN ORAL TAB Take one(1) tablet daily. CALCIUM + D 600 MG-200 UNIT ORAL TAB Take one(1) tablet two(2) times daily. TYLENOL EXTRA STRENGTH 500 MG ORAL TAB Take two(2) tablets every four(4) to six(6) hours as needed. amitriptyline (ELAVIL) 25 mg tablet Take 1-2 tablets by mouth daily at bedtime. As directed (Patient not taking: Reported on 08/12/2018 ) montelukast (SINGULAIR) 10 mg tablet Take 1 tablet by mouth daily at bedtime. (Patient not taking: Reported on 08/12/2018 ) No current facility-administered medications for this visit. OBJECTIVE: BP 136/78 Pulse 72 Resp 20 Wt 89.4 kg (197 lb) BMI 37.22 kg/m? Patient is alert, oriented times 3, no apparent distress, affect is bright, reactive. Last 5 Encounter BP Readings: Date: BP: 08/12/2018 136/78 02/04/2018 138/80 07/28/2017 132/78 02/10/2017 124/78 01/23/2017 122/84 Last 5 Encounter Wt Readings: Date: Wt: 08/12/2018 89.4 kg (197 lb) 02/04/2018 92.1 kg (203 lb) 07/28/2017 88.9 kg (196 lb) 02/10/2017 101.2 kg (223 lb) 01/23/2017 101.2 kg (223 lb) Heart: Regular rate, rhythm, no murmurs, gallops, rubs. Lungs: Clear to auscultation, bilaterally, breathing non labored. Ext: No cyanosis, clubbing, or edema. Normal function fingers; mild OA changes in IP joints. Component Latest Ref Rng AND Units 01/27/2016 01/17/2017 07/23/2017 02/01/2018 05/31/2018 08/06/2018 Protein, Total 6.3 - 8.0 g/dL 7.3 Albumin 3.9 - 4.9 g/dL 4.2 Calcium 8.5 - 10.2 mg/dL 9.2 9.0 9.2 9.3 9.6 Bilirubin, Total 0.2 - 1.3 mg/dL 0.3 Alkaline Phosphatase 34 - 123 U/L 55 AST 13 - 35 U/L 24 Glucose 74 - 99 mg/dL 95 96 89 94 93 BUN 7 - 21 mg/dL 14 24 (H) 17 17 12 Creatinine 0.58 - 0.96 mg/dL 0.63 (L) 0.63 0.65 0.66 0.61 Sodium 136 - 144 mmol/L 137 138 139 138 140 Potassium 3.7 - 5.1 mmol/L 3.7 3.9 3.7 3.5 (L) 3.6 (L) Chloride 97 - 105 mmol/L 97 (L) 98 98 98 101 CO2 22 - 30 mmol/L 29 26 28 28 25 Anion Gap 9 - 18 mmol/L 11 14 13 12 14 ALT 7 - 38 U/L 12 eGFR- >60 >60 >60 >60 >60 eGFR-All Other Races . >60 >60 >60 >60 >60 WBC 3.70 - 11.00 k/uL 6.56 RBC 3.90 - 5.20 m/uL 4.60 Hemoglobin 11.5 - 15.5 g/dL 14.0 Hematocrit 36.0 - 46.0 % 43.2 MCV 80.0 - 100.0 fL 93.9 MCH 26.0 - 34.0 pG 30.4 MCHC 30.5 - 36.0 g/dL 32.4 RDW-CV 11.5 - 15.0 % 12.7 Platelet Count 150 - 400 k/uL 229 MPV 9.0 - 12.7 fL 11.0 Cholesterol, Total mg/dL 192 183 Triglyceride mg/dL 167 (H) 186 HDL Cholesterol >39 mg/dL 49 LDL Cholesterol <100 mg/dL 110 (H) Non HDL Cholesterol <130 mg/dL 143 (H) Fasting Time hrs 14 VLDL Cholesterol 5 - 40 mg/dL 33 (H) 37 TC:HDL Ratio <5.10 3.92 LDL:HDL Ratio <2.54 2.24 HDL CHOLESTEROL mg/dL 37 LDL Cholesterol 0 - 130 mg/dL 109 Hemoglobin A1C 4.3 - 5.6 % 5.7 (H) 5.8 (H) 5.5 5.5 Estimated Average Glucose mg/dL 117 120 111 111 Magnesium 1.7 - 2.3 mg/dL 2.1 Occult Blood, Stool Negative Negative Hep C Antibody IA Negative Negative ASSESSMENT AND PLAN: Encounter Diagnosis ICD-10-CM 1. 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 Essential hypertension I10 3. Fibromyalgia M79.7 4. Class 2 obesity due to excess calories without serious comorbidity with body mass index (BMI) of 37.0 to 37.9 in adult E66.09 Z68.37 5. Need for vaccination Z23 INFLUENZA SEASONAL HIGH DOSE AGE 65+ 6. Impaired fasting glucose R73.01 7. Anxiety state F41.1 8. Reactive depression F32.9 Above issues addressed with patient. Patient involved in shared decision making for management of medical issues. History and medications reviewed. Epic updated as needed Refills taken care of and meds adjusted as indicated after reviewed history, exam and labs. Health Maintenance reviewed. Updated record and/or ordered tests as recorded. Encouraged on efforts at healthy diet and regular exercise and adequate sleep. Needs to keep working on diet and exercise with lifestyle changes for effective weight loss as well as prevention of DM, and control of BP and lipids. Has been gradually losing weight. Encouraged to keep up portion control and better choices of foods. Stay as active as able. Discussed prevention of problems with index finger from use of computer mouse. Avoid staying on computer for too long. Hand exercises as discussed. Stable with control of insomnia. No signs of diversion or abuse of medication(s); no adverse effects. Continue present management. PDMP website checked and validated. All prescriptions have been APPROPRIATELY filled. No suspicious activity was identified. 08/12/2018 by Adeel Russo MD The majority of the visit was spent counseling and/or coordinating care for the patient. Sibt-fq-zwzz time was at least 25 minutes. Adeel Russo MD PROGRESS Observed: 08/12/2018 Status: COMPLETED Source: [place] 12:17 PM [facility] REPOSITORY [facility] ID: [id number] Author: Brittany Phelan LPN Service: (none) Author Type: (none) Type: Progress Notes Filed: 08/23/2018 10:49 PM Note Text: 73 year old female here for INACTIVATED INFLUENZA VACCINE. 9669-7011 Season Patient is identified by name and date of : Yes [] CONTRAINDICATIONS color enhanced section Age less than 6 months? No Allergy to eggs, chicken, chicken feathers, or chicken dander? No Allergy to thimerosal (a preservative) or formaldehyde, gelatin? No History of severe reaction to any vaccine component or a previous dose of influenza vaccination? No History of Guillain-Jesup Syndrome within 6 weeks after a previous influenza vaccine? No Patient is not moderately or severely ill? No Current temperature greater or equal to 100.4F? No History of Bone Marrow Transplant prior 6 months or solid organ transplant in the past 3 months ? No History of fainting after a prior injection or medical procedure? No- ? If patient has fainted in the past, the CDC recommends sitting or lying down for 15 minutes after the vaccination. [] VERIFICATION color enhanced section Was the answer Yes for any of the above contraindications? No contraindications present. Acceptable to proceed with vaccine. Patient/guardian agrees the above answers are true to the best of their knowledge? Yes Flu vaccine information sheet given? Yes See immunization activity in [facility] for details of immunizations adminstered today. Patient age: [age] year old For The 6462-2426 Flu Season 6-35 months old: Fluzone 0.25 ml - IM (Preservative Free) 3 years of age: Fluzone 0.5 ml - IM (Preservative Free) 3 years and older: Fluzone 0.5 ml- IM-(with Preservatives) 65+ years old: 2-49 years old Fluzone High-Dose 0.5 ml - IM (Preservative Free) FLUMIST- intranasal REMEMBER: If patient is less than 9 years of age and this is the first vaccine of Influenza to be received in any flu season, they should receive a second dose in one months time. CNOV Observed: 08/12/2018 Status: COMPLETED Source: [place] 11:00 AM [facility] REPOSITORY Office Visit (INTMWS) ANAMIKA LI ([id number]) 1945 F Date Time Provider Department 08/12/18 11:00 AM TALADEEL JOHNSON During your visit today, we recorded the following information about you: Pulse Respiration Blood pressure Weight 72/minute 20/minute 136/78 89.4 kg Brittany Phelan MANJEET 08/23/2018 10:49 PM Signed 73 year old female here for INACTIVATED INFLUENZA VACCINE. Season Patient is identified by name and date of : Yes [] CONTRAINDICATIONS color enhanced section Age less than 6 months? No Allergy to eggs, chicken, chicken feathers, or chicken dander? No Allergy to thimerosal (a preservative) or formaldehyde, gelatin? No History of severe reaction to any vaccine component or a previous dose of influenza vaccination? No History of Guillain-Jesup Syndrome within 6 weeks after a previous influenza vaccine? No Patient is not moderately or severely ill? No Current temperature greater or equal to 100.4F? No History of Bone Marrow Transplant prior 6 months or solid organ transplant in the past 3 months ? No History of fainting after a prior injection or medical procedure? No- ? If patient has fainted in the past, the CDC recommends sitting or lying down for 15 minutes after the vaccination. [] VERIFICATION color enhanced section Was the answer Yes for any of the above contraindications? No contraindications present. Acceptable to proceed with vaccine. Patient/guardian agrees the above answers are true to the best of their knowledge? Yes Flu vaccine information sheet given? Yes See immunization activity in [facility] for details of immunizations adminstered today. Patient age: [age] year old For The 8505-2306 Flu Season 6-35 months old: Fluzone 0.25 ml - IM (Preservative Free) 3 years of age: Fluzone 0.5 ml - IM (Preservative Free) 3 years and older: Fluzone 0.5 ml- IM-(with Preservatives) 65+ years old: 2-49 years old Fluzone High-Dose 0.5 ml - IM (Preservative Free) FLUMIST- intranasal REMEMBER: If patient is less than 9 years of age and this is the first vaccine of Influenza to be received in any flu season, they should receive a second dose in one months time. Adeel Russo MD 08/23/2018 10:49 PM Signed Patient presents with: Recheck: Follow up Imm/Inj: Flu Vaccine SUBJECTIVE: Anamika Li is a 73 year old year old lady here today for 6 month follow up appointment for review of medical conditions. Had sore throat and swelling of throat and aching from Zocor 20mg daily. Stopped after 10 days since got bad with symptoms. Stopped the med. Dr. Pascual's office to call with alternative med. Lunesta 3mg at HS and Doxepin 2 pills at HS needed for sleep.Has been taking current dose. Lower dose note effective. Needs to keep sleep on track to control depression and anxiety. Noted issues with right index finger from computer mouse. Plays computer games, etc. Finger gets stiff. Continues to need Lunesta 3 mg nightly for insomnia. Had tried other formulary meds over the years and nothing worked as well without adverse effects. PAST MEDICAL HISTORY Diagnosis Date - Carpal tunnel syndrome - Depressive disorder, not elsewhere classified - Esophageal reflux - Macular degeneration (senile) of retina, unspecified - Myalgia and myositis, unspecified - Obesity, unspecified - Unspecified essential hypertension Current Outpatient Prescriptions: aspirin, enteric coated (ASPIRIN, ENTERIC COATED) 81 mg EC tablet Take 81 mg by mouth once daily. eszopiclone (LUNESTA) 3 mg tab Take 1 tablet by mouth at bedtime as needed for up to 90 days. AT BEDTIME. Atenolol-Chlorthalidone 100-25 mg per tablet TAKE 1/2 TABLET ONE TIME DAILY fluticasone (FLONASE) 50 mcg/actuation nasal spray USE 2 SPRAYS IN EACH NOSTRIL ONE TIME DAILY omeprazole (PRILOSEC) 20 mg capsule TAKE 1 CAPSULE EVERY DAY potassium chloride ER (K-DUR, KLOR-CON) 10 mEq tablet TAKE 1 TABLET EVERY DAY fexofenadine (LETICIA ALLERGY) 180 mg tablet Take 1 tablet by mouth once daily. vit A,C,D-Ltib-Gqjzag 7,160-113-100 uatt-hf-fiwn ORAL Tab Take by mouth. As directed. Lutein 10 mg ORAL Tab Take by mouth. As directed. cholecalciferol(VITAMIN D 2,000 UNIT CAP) Take one(1) tablet daily. naproxen sodium(ALEVE 220 MG TAB) Take one(1) tablet twice daily. OMEGA 3 550 MG CAP Take one(1) tablet daily. OAT BRAN 500 MG TAB 2 tabs in am MULTIVITAMIN ORAL TAB Take one(1) tablet daily. CALCIUM + D 600 MG-200 UNIT ORAL TAB Take one(1) tablet two(2) times daily. TYLENOL EXTRA STRENGTH 500 MG ORAL TAB Take two(2) tablets every four(4) to six(6) hours as needed. amitriptyline (ELAVIL) 25 mg tablet Take 1-2 tablets by mouth daily at bedtime. As directed (Patient not taking: Reported on 08/12/2018 ) montelukast (SINGULAIR) 10 mg tablet Take 1 tablet by mouth daily at bedtime. (Patient not taking: Reported on 08/12/2018 ) No current facility-administered medications for this visit. OBJECTIVE: BP 136/78 Pulse 72 Resp 20 Wt 89.4 kg (197 lb) BMI 37.22 kg/m? Patient is alert, oriented times 3, no apparent distress, affect is bright, reactive. Last 5 Encounter BP Readings: Date: BP: 08/12/2018 136/78 02/04/2018 138/80 07/28/2017 132/78 02/10/2017 124/78 01/23/2017 122/84 Last 5 Encounter Wt Readings: Date: Wt: 08/12/2018 89.4 kg (197 lb) 02/04/2018 92.1 kg (203 lb) 07/28/2017 88.9 kg (196 lb) 02/10/2017 101.2 kg (223 lb) 01/23/2017 101.2 kg (223 lb) Heart: Regular rate, rhythm, no murmurs, gallops, rubs. Lungs: Clear to auscultation, bilaterally, breathing non labored. Ext: No cyanosis, clubbing, or edema. Normal function fingers; mild OA changes in IP joints. Component Latest Ref Rng AND Units 01/27/2016 01/17/2017 07/23/2017 02/01/2018 05/31/2018 08/06/2018 Protein, Total 6.3 - 8.0 g/dL 7.3 Albumin 3.9 - 4.9 g/dL 4.2 Calcium 8.5 - 10.2 mg/dL 9.2 9.0 9.2 9.3 9.6 Bilirubin, Total 0.2 - 1.3 mg/dL 0.3 Alkaline Phosphatase 34 - 123 U/L 55 AST 13 - 35 U/L 24 Glucose 74 - 99 mg/dL 95 96 89 94 93 BUN 7 - 21 mg/dL 14 24 (H) 17 17 12 Creatinine 0.58 - 0.96 mg/dL 0.63 (L) 0.63 0.65 0.66 0.61 Sodium 136 - 144 mmol/L 137 138 139 138 140 Potassium 3.7 - 5.1 mmol/L 3.7 3.9 3.7 3.5 (L) 3.6 (L) Chloride 97 - 105 mmol/L 97 (L) 98 98 98 101 CO2 22 - 30 mmol/L 29 26 28 28 25 Anion Gap 9 - 18 mmol/L 11 14 13 12 14 ALT 7 - 38 U/L 12 eGFR- >60 >60 >60 >60 >60 eGFR-All Other Races . >60 >60 >60 >60 >60 WBC 3.70 - 11.00 k/uL 6.56 RBC 3.90 - 5.20 m/uL 4.60 Hemoglobin 11.5 - 15.5 g/dL 14.0 Hematocrit 36.0 - 46.0 % 43.2 MCV 80.0 - 100.0 fL 93.9 MCH 26.0 - 34.0 pG 30.4 MCHC 30.5 - 36.0 g/dL 32.4 RDW-CV 11.5 - 15.0 % 12.7 Platelet Count 150 - 400 k/uL 229 MPV 9.0 - 12.7 fL 11.0 Cholesterol, Total mg/dL 192 183 Triglyceride mg/dL 167 (H) 186 HDL Cholesterol >39 mg/dL 49 LDL Cholesterol <100 mg/dL 110 (H) Non HDL Cholesterol <130 mg/dL 143 (H) Fasting Time hrs 14 VLDL Cholesterol 5 - 40 mg/dL 33 (H) 37 TC:HDL Ratio <5.10 3.92 LDL:HDL Ratio <2.54 2.24 HDL CHOLESTEROL mg/dL 37 LDL Cholesterol 0 - 130 mg/dL 109 Hemoglobin A1C 4.3 - 5.6 % 5.7 (H) 5.8 (H) 5.5 5.5 Estimated Average Glucose mg/dL 117 120 111 111 Magnesium 1.7 - 2.3 mg/dL 2.1 Occult Blood, Stool Negative Negative Hep C Antibody IA Negative Negative ASSESSMENT AND PLAN: Encounter Diagnosis ICD-10-CM 1. 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 Essential hypertension I10 3. Fibromyalgia M79.7 4. Class 2 obesity due to excess calories without serious comorbidity with body mass index (BMI) of 37.0 to 37.9 in adult E66.09 Z68.37 5. Need for vaccination Z23 INFLUENZA SEASONAL HIGH DOSE AGE 65+ 6. Impaired fasting glucose R73.01 7. Anxiety state F41.1 8. Reactive depression F32.9 Above issues addressed with patient. Patient involved in shared decision making for management of medical issues. History and medications reviewed. Epic updated as needed Refills taken care of and meds adjusted as indicated after reviewed history, exam and labs. Health Maintenance reviewed. Updated record and/or ordered tests as recorded. Encouraged on efforts at healthy diet and regular exercise and adequate sleep. Needs to keep working on diet and exercise with lifestyle changes for effective weight loss as well as prevention of DM, and control of BP and lipids. Has been gradually losing weight. Encouraged to keep up portion control and better choices of foods. Stay as active as able. Discussed prevention of problems with index finger from use of computer mouse. Avoid staying on computer for too long. Hand exercises as discussed. Stable with control of insomnia. No signs of diversion or abuse of medication(s); no adverse effects. Continue present management. PDMP website checked and validated. All prescriptions have been APPROPRIATELY filled. No suspicious activity was identified. 08/12/2018 by Adeel Russo MD The majority of the visit was spent counseling and/or coordinating care for the patient. Jwhx-ra-ylav time was at least 25 minutes. MD Tammie Alvarado LPN 08/23/2018 10:49 PM Signed received approval from [facility] for doxepin - good until 08/15/2020 Referring Provider: ADEEL RUSSO [[id number]] Allergies As of Date: 08/12/2018 Noted Allergy Reaction AMOXICILLIN 06/02/2005 2 - Rash ASA (SALICYLATES) 06/02/2005 Comments: if not coated FLAGYL (METRONIDAZOLE HCL) 06/02/2005 LISINOPRIL 06/02/2005 PENICILLINS 06/02/2005 2 - Rash Date Reviewed: 08/12/2018 Reviewed by: Brittany Phelan LPN - Fully Assessed Reason for Visit: Recheck [92] Cmt: Follow up Imm/Inj [58] Cmt: Flu Vaccine Reason For Visit History Recorded Primary Visit Diagnosis:Persistent disorder of initiating or maintaining sleep [G47.00] Other Visit Diagnoses:Essential hypertension [I10] Fibromyalgia [M79.7] Class 2 obesity due to excess calories without serious comorbidity with body mass index (BMI) of 37.0 to 37.9 in adult [E66.09, Z68.37] Need for vaccination [Z23] Impaired fasting glucose [R73.01] Anxiety state [F41.1] Reactive depression [F32.9] Order(s):INFLUENZA SEASONAL HIGH DOSE AGE 65+ [[id number]] Order #: [id number] eszopiclone (LUNESTA) 3 mg tabTake 1 tablet by mouth at bedtime as needed for up to 90 days. AT BEDTIME.Disp: 90 tabletRfl: 1 doxepin capsule 25 mgTake 2 capsules by mouth daily at bedtime.Disp: 180 capsuleRfl: 3 doxepin capsule 10 mgTake 2 capsules by mouth daily at bedtime.Disp: 180 capsuleRfl: 3 Prescriptions as of 08/12/2018 Sig: ASPIRIN 81 MG TABLET,DELAYED * Take 81 mg by mouth once marsha* ESZOPICLONE 3 MG TABLET Take 1 tablet by mouth at bed* ATENOLOL 100 MG-CHLORTHALIDON* TAKE 1/2 TABLET ONE TIME DAILY FLUTICASONE 50 MCG/ACTUATION * USE 2 SPRAYS IN EACH NOSTRIL * OMEPRAZOLE 20 MG CAPSULE,MILADYS* TAKE 1 CAPSULE EVERY DAY POTASSIUM CHLORIDE ER 10 MEQ * TAKE 1 TABLET EVERY DAY FEXOFENADINE 180 MG TABLET Take 1 tablet by mouth once d* * VITAMINS A,C,W-NAQX-QBDOTS 7* Take by mouth. As directed. * LUTEIN 10 MG TABLET Take by mouth. As directed. * VITAMIN D 2,000 UNIT CAPSULE Take one(1) tablet daily. * ALEVE 220 MG TABLET Take one(1) tablet twice marsha* * FLAXSEED OIL 1000 MG CAPSULE Take one(1) tablet daily. * OAT BRAN 500 MG TABLET 2 tabs in am * MULTIVITAMIN TABLET Take one(1) tablet daily. * CALCIUM + D 600 MG (1,500 MG)* Take one(1) tablet two(2) [place]ot[place]* * TYLENOL EXTRA STRENGTH 500 MG* Take two(2) tablets every fou* DOXEPIN 25 MG CAPSULE Take 2 capsules by mouth marsha* DOXEPIN 10 MG CAPSULE Take 2 capsules by mouth marsha* AMITRIPTYLINE 25 MG TABLET Take 1-2 tablets by mouth puneet* Patient not taking: Reported on 08/12/2018 MONTELUKAST 10 MG TABLET Take 1 tablet by mouth daily * Patient not taking: Reported on 08/12/2018 Medication notes this encounter ESZOPICLONE 3 MG TABLET >> Adeel Russo MD 08/12/2018 12:46 PM >> ADEEL RUSSO MD SunAug 12, 2018 12:46 PM has Good RX coupon ESZOPICLONE 3 MG TABLET >> Adeel Russo MD 08/12/2018 12:47 PM >> ADEEL RUSSO MD SunAug 12, 2018 12:47 PM Did not fill this RX Problem List As Of Date 08/12/2018 Noted Resolved Fibromyalgia [M79.7] INVALID FOR* More... PERSISTENT INSOMNIA [G47.00] INVALID FOR* More... Essential hypertension [I10] INVALID FOR* More... ESOPHAGEAL REFLUX [K21.9] INVALID FOR* More... Depressed [F32.9] More... Macular degeneration (senile) of retina [H35.30] CARPAL TUNNEL SYNDROME [G56.00] Obesity [E66.9] Anxiety state [F41.1] INVALID FOR* More... 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 AT BEDTIME. DOXEPIN 25 MG CAPSULE 180 * 3 08/12/2018 Class: Print RX Route: ORAL Sig: Take 2 capsules by mouth daily at bedtime. DOXEPIN 10 MG CAPSULE 180 * 3 08/12/2018 Class: Print RX Route: ORAL Sig: Take 2 capsules by mouth daily at bedtime. Medications Discontinued During This Encounter eszopiclone (LUNESTA) 3 mg tab 90 t* 0 07/30/2018 08/12/2018 Class: Print RX Route: ORAL Sig: Take 1 tablet by mouth at bedtime as needed for up to 90 days. AT BEDTIME. Disc: Reason for discontinue is not on file. Disposition: Return for 6 months follow up. Follow-up and Disposition History Recorded Encounter Status:Closed by ADEEL RUSSO MD on 08/23/18 COMP METABOLIC PANEL Collected: 08/06/2018 Status: F Source: [place] 12:30 PM [facility] REPOSITORY TYPE CODE TESTS RESULT OUT OF REFERENCE UNITS RANGE LAB TP 6.3-8.0 g/dL Protein, Total 7.3 LAB ALB 3.9-4.9 g/dL Albumin 4.2 LAB CA 8.5-10.2 mg/dL Calcium, Total 9.6 LAB TBIL 0.2-1.3 mg/dL Bilirubin, Total 0.3 LAB ALKP 34-123 U/L Alkaline Phosphatase 55 LAB AST 13-35 U/L AST 24 LAB GLU 74-99 mg/dL Glucose 93 Result Comment: The [place] [employer] (ADA) provides guidance for cutoff values for fasting glucose and random glucose. The ADA defines fasting as no caloric intake for at least 8 hours. Fas ting plasma glucose results between 100 to 125 mg/dL indicate increased risk for diabetes (prediabetes). Fasting plasma glucose results greater than or equal to 126 mg/dL meet the criteria for diagnosis of diabetes. In the absence of unequivocal hyperglycemia, results should be confirmed by repeat testing. In a patient with classic symptoms of hyperglycemia or hyperglycemic crisis, random plasma glucose results greater than or equal to 200 mg/dL meet the criteria for diagnosis of diabetes. Reference: Standards of Medical Care in Diabetes 2016, [place] [employer] Association. Diabetes Care. 2016.39(Suppl 1). LAB BUN 7-21 mg/dL BUN 12 LAB CRET 0.58-0.96 mg/dL Creatinine 0.61 LAB NA 136-144 mmol/L Sodium 140 LAB K 3.7-5.1 mmol/L Potassium Low 3.6 LAB CL 97-105 mmol/L Chloride 101 LAB CO2 22-30 mmol/L CO2 25 LAB AGAP 9-18 mmol/L Anion Gap 14 LAB ALT 7-38 U/L ALT 12 LAB GFRAA eGFR- Amer. >60 LAB GFRNAA . eGFR-All Other Races >60 Result Comment: eGFR (Estimated GFR) Units of measure: mL/min/1.73 meters squared eGFR is derived from the reexpressed MDRD Study equation using the following parameters: serum creatinine, age, gender and race. The creatinine assay has been calibrated to be traceable to IDMS. An eGFR <60 mL/min/1.73m2 for >3 months is consistent with chronic kidney disease. Refer to KDOQI guidelines for clinical interpretation. In patients with unstable renal function, e.g. those with acute kidney injury, the eGFR may not accurately reflect actual GFR. Performed By: #### CMP, HBA1C #### [facility] [address] [place], [place] [address] HEMOGLOBIN A1C Collected: 08/06/2018 Status: F Source: [place] 12:30 PM [facility] REPOSITORY TYPE CODE TESTS RESULT OUT OF REFERENCE UNITS RANGE LAB HGBA1C 4.3-5.6 % Hemoglobin A1c 5.5 LAB HBA0 mg/dL Est. Average Glucose 111 Result Comment: eAG: (Estimated average glucose) is a calculated value from HgbA1c and is territory service representative of the average blood glucose level in the last 2-3 month period. Performed By: #### CMP, HBA1C #### [facility] [address] [place], [place] [address] SURGERY VISIT REPORT Observed: 07/19/2018 Status: F Source: [place] 9:35 AM [facility] [address] [place] [address]. [address] [place] [address] OFFICE VISIT Date of Service: 07/19/18 MR#: [id number] Acct: [id number] Name: ANAMIKA LI Rep #: [id number] : 1945 Provider: Sheldon Tao MD Age/Sex: 73/F [place] 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 Is patient in pain?: No Allergies ampicillin Allergy (Verified 07/19/18 09:26) Rash lisinopril Allergy (Verified 07/19/18 09:26) Rash Penicillins [PCN] Allergy (Verified 07/19/18 09:26) Rash Medications Leticia Allergy 180 mg PO PRN PRN 05/17/18 [History Confirmed 07/19/18] Atenolol/Chlorthalidone [Atenolol-Chlorthalidone 100-25] 0.5 tab PO DAILY 05/17/18 [History Confirmed 07/19/18] Docusate Sodium 200 mg PO QHS 05/17/18 [History Confirmed 07/19/18] Doxepin HCl 30 mg PO QHS 05/17/18 [History Confirmed 07/19/18] Eszopiclone 3 mg PO QHS PRN MDD fibromalgya 05/17/18 [History Confirmed 07/19/18] Fluticasone 0.05% 2 spry NASAL DAILY PRN 05/17/18 [History Confirmed 07/19/18] Omeprazole 20 mg PO DAILY 05/17/18 [History Confirmed 07/19/18] Potassium Chloride 1 tab PO DAILY 05/17/18 [History Confirmed 07/19/18] Vits A,C,E/Lutein/Minerals [Healthy Eyes Caplet] 2 tab PO DAILY 05/17/18 [History Confirmed 07/19/18] Calcium Carbonate/Vitamin D3 [Calcium 600-Vit D3 500 Softgel] 1 ea PO DAILY 05/29/18 [History Confirmed 07/19/18] Multivit-Min/Iron/Folic/Lutein [Centrum Silver Women Tablet] 1 ea PO DAILY 05/29/18 [History Confirmed 07/19/18] Oat Bran 1,700 mg PO DAILY 05/29/18 [History Confirmed 07/19/18] Vitamin E 400 unit PO DAILY 05/29/18 [History Confirmed 07/19/18] Aspirin [Aspirin, Baby] 81 mg PO DAILY@0800 06/19/18 [History Confirmed 07/19/18] simvastatin 20 mg tablet 20 mg PO .COMPLEX 06/20/18 [History Confirmed 07/19/18] Peoa-3 Fatty Acids/Fish Oil [Fish Oil 1,000 mg Capsule] 1 ea PO DAILY 07/05/18 [History Confirmed 07/19/18] Subjective Details: Patient is status post a laparoscopic cholecystectomy on 07/12/2018. She states that she is tolerating a diet she is complaining of some shoulder pain which I informed her was normal post gallbladder surgery secondary to inflating her diaphragm. The pathology report came back as cholesterolosis, mild chronic cholecystitis and cholelithiasis. Objective Details: Her dressings were still intact and I had to take them down. The Steri-Strips all look good there is minimal bruising identified and there is no signs of cellulitis. Her abdomen is soft. Assessment AND Plan Problems 1. Aftercare Z51.89 Plan At this point I want her to gradually increase her activities per I would like for her to increase the amount of food that she is eating as well as the variety of foods that she has been eating. I told her that it was okay for her to take Tums. She can follow-up with me on an as-needed basis. Coding Level of Care Code Global Post Op Diagnoses Aftercare Z51.89 07/19/18 0935 <Electronically signed by Sheldon Tao MD> Date Sheldon Tao MD Cosign Signature: Date (if applicable) CC: Adeel Russo MD 12 LEAD ELECTROCARDIOGRAM Observed: 07/17/2018 Status: F Source: [place] 3:53 PM [facility] Cardiovascular Services [address] [place] [address] 12 Lead EKG 07/12/18 1204 MR#: [id number] Acct: [id number] Name: ANAMIKA LI Rep #: [id number] : 1945 72 From: Deny Toribio MD Attending Dr: Sheldon Tao MD Status: DEP [facility] Ordering Dr: Dionte Robertson MD Date: 07/12/18 Location: [facility] Sex: F C Admitted: Test Reason : PREOP Blood Pressure : / mmHG Vent. Rate : 070 BPM Atrial Rate : 070 BPM P-R Int : 178 ms QRS Dur : 084 ms QT Int : 368 ms P-R-T Axes : 043 -22 047 degrees QTc Int : 397 ms Normal sinus rhythm Normal ECG When compared with ECG of 17-MAY-2018 22:24, T wave inversion no longer evident in Inferior leads T wave inversion less evident in Lateral leads Confirmed by MALU MAGAÑA, DENY ([id number]), editor producer VONNIE SCHWARTZ ([id number]) on 07/17/2018 3:53:21 PM Referred By: Sheldon Tao Confirmed By:DENY TORIBIO MD 07/17/18 1553 Date Deny Toribio MD CC: Dionte Robertson MD; Sheldon Tao MD; Adeel Russo MD Signed OPERATIVE REPORT Observed: 07/12/2018 Status: F Source: [place] 1:53 PM [facility] Medical Records Department [address] [place] [address] Operative Report 07/12/18 1349 MR#: [id number] Acct: [id number] Name: ANAMIKA LI Rep #: [id number] : 1945 72 From: Sheldon Tao MD PCP: Adeel Russo MD Status: [facility] Y Location: [place] [address] Problem List (1) Calculus of gallbladder with acute on chronic cholecystitis without obstruction Status: Acute Report of Operation Date of Procedure: 07/12/18 Pre-Operative Diagnosis: k80.12 acute on chronic cholecystitis with cholelithiasis Post-Operative Diagnosis: Same Surgery/Procedure Performed:: Laparoscopic cholecystectomy Type of Anesthesia:: General Anesthesiologist: Dionte Robertson Specimen's removed: Gallbladder Estimated Blood Loss (mL): < 25 cc Description of Procedure: Patient was brought into the operating room. Placed in the supine position. Under excellent general endotracheal sedation the abdomen was sterilely prepped and draped in usual fashion. Local was injected in for umbilically. Dissection was carried down to the fascia. The fascia was grasped with a Heidi's. Varies needle was placed inside the abdomen. The abdomen was insufflated to 15 torr. A 10/12 trocar was placed. Patient was placed in the head up and rotated to the left position. A subxiphoid trocar #5 was placed, inferior to the this another #5 trocar was placed, laterally a #5 trocar placed, all these under direct visualization without injury to underlying structures. Moderate amount of omental adhesions were taken down. The fundus of the gallbladder was grasped and retracted in a cephalad direction. Infundibulum was grasped retracted laterally. I dissected out the cystic duct. Hemoclips were placed proximally and distally and the duct was ligated. The cystic artery was identified. Hemoclips were placed proximally and distally. The artery was ligated. The gallbladder was delivered from the gallbladder bed with use of electrocautery. Placed a specimen a specimen bag and delivered through the umbilical port without spillage of any bile. I used electrocautery on the liver edge and I placed a small piece of Surgicel on the base of it very raw liver edge. There was no active bleeding identified. I removed the trochars under direct visualization. Good hemostasis was noted. I closed the fascia the umbilical port with a [id number] stitch of 0 Vicryl. Skin incisions were closed with septicum stitches of 4-0 Monocryl. Steri-Strips were applied. Sterile dressings were applied. The patient tolerated the procedure well. - Admit VTE Documentation VTE Present on Admission: No VTE Mechan Device Prophylaxis: SCD's VTE Pharm Prophylaxis ordered?: No Reason prophylaxis not ordered:: Treatment Not Indicated 07/12/18 6257 <Electronically signed by Sheldon Tao MD> Date Sheldon Tao MD CC: Sheldon Tao MD; Adeel Russo MD Signed DISCHARGE INSTRUCTION Observed: 07/12/2018 Status: F Source: [place] 1:08 PM [facility] Medical Records Department [address] [place] [address] Instructions for Home/Discharge Instructions 07/12/18 1307 MR#: [id number] Acct: [id number] Name: ANAMIKA LI Rep #: [id number] : 1945 72 From: Sheldon Tao MD PCP: Adeel Russo MD Status: REG SDC Discharge Diet: Light diet - advance as tolerated Discharge Activity: May Not Drive - for 2-3 days or while taking narcotic pain medications., - - Do not drive, work heavy equipment or sign legal documents for 24 hours. May shower in (days): 1 - with the bandage in place. Additional Activity Instructions:: Pain medication may cause nausea. You should typically eat light foods as you take your pain medications. Pain medication may also cause constipation. If this is a problem for you, please discuss with your doctor. Call your doctor if your incision/area has: Continuous Slow Oozing, Sudden Increased Bleeding, Increased Pain/ Swelling, Increased Redness, Foul Smelling Discharge Call your doctor if you observe: Fever of 101 or Higher Suture Line Care: Avoid Pulling/Pushing, Avoid Pinching/Bending Additional Dressing/Incision Instructions:: Leave operative bandaids on for 2 days. When you remove dressing, leave Steri-Strips on until your follow-up appointment, or until the Steri-Strips fall off on their own. Allergies/Adverse Reactions: Allergies ampicillin Allergy (Verified 07/12/18 12:17) Rash lisinopril Allergy (Verified 07/12/18 12:17) Rash Penicillins [PCN] Allergy (Verified 07/12/18 12:17) Rash Medications to take at Discharge Leticia Allergy 180 mg PO PRN PRN 05/17/18 Atenolol/Chlorthalidone [Atenolol-Chlorthalidone 100-25] 0.5 tab PO DAILY 05/17/18 Docusate Sodium 200 mg PO QHS 05/17/18 Doxepin HCl 30 mg PO QHS 05/17/18 Eszopiclone 3 mg PO QHS PRN MDD fibromalgya 05/17/18 Fluticasone 0.05% 2 spry NASAL DAILY PRN 05/17/18 Omeprazole 20 mg PO DAILY 05/17/18 Potassium Chloride 1 tab PO DAILY 05/17/18 Vits A,C,E/Lutein/Minerals [Healthy Eyes Caplet] 2 tab PO DAILY 05/17/18 Calcium Carbonate/Vitamin D3 [Calcium 600-Vit D3 500 Softgel] 1 ea PO DAILY 05/29/18 Multivit-Min/Iron/Folic/Lutein [Centrum Silver Women Tablet] 1 ea PO DAILY 05/29/18 Oat Bran 1,700 mg PO DAILY 05/29/18 Vitamin E 400 unit PO DAILY 05/29/18 Aspirin [Aspirin, Baby] 81 mg PO DAILY@0800 06/19/18 simvastatin 20 mg tablet 20 mg PO .COMPLEX 06/20/18 Peoa-3 Fatty Acids/Fish Oil [Fish Oil 1,000 mg Capsule] 1 each PO DAILY 07/05/18 Oxycodone HCl/Acetaminophen [Percocet 5/325] 1 - 2 tab PO Q4H PRN PRN 5 Days #30 tab 07/12/18 The following prescriptions were given: Oxycodone HCl/Acetaminophen [Percocet 5/325] 1 - 2 tab PO Q4H PRN PRN 5 Days #30 tab PRN Reason: Pain Primary Care Physician: Adeel Russo MD [Primary Care Provider] - Test Results: Test results from this visit will be discussed in further detail at your follow-up appointment, if applicable. Please Follow Up With: Sheldon Tao MD - Please call [phone] to schedule an appointment. When: 7 days after your surgery. 07/12/18 1308 <Electronically signed by Sheldon Tao MD> Date Sheldon Tao MD CC: Adeel Russo MD HISTORY AND PHYSICAL Observed: 07/12/2018 Status: F Source: [place] EXAM 12:32 [facility] Medical Records Department [address] [place] [address] History and Physical 07/12/18 1228 MR#: [id number] Acct: [id number] Name: ANAMIKA LI Rep #: [id number] : 1945 72 From: Sheldon Tao MD PCP: Adeel Russo MD Status: REG [facility] Y Location: [place] [address] Problem List (1) Calculus of gallbladder with acute on chronic cholecystitis without obstruction Status: Acute History of Present Illness Date of Admission: 07/12/18 ANAMIKA LI, is a 72 F who presents to the office today for further evaluation of symptomatic cholelithiasis. Patient was recently seen and was [facility]'s emergency department on 05/17/2018. She was having upper abdominal and lower chest discomfort. She was not complaining of any shortness of breath or lightheadedness or palpitations. Workup in the emergency department included a CAT scan which looked as if the gallbladder wall was thickened and was consistent with probable early cholecystitis. Her liver function tests at that time were all within normal limits. She subsequently underwent a gallbladder ultrasound which showed the gallbladder wall to be 4 mm positive sonographic [place] sign. There was no pericholecystic fluid. And multiple gallstones were noted. Common bile duct measured 5 mm. She has a known history of fibromyalgia and states that the discomfort that she was having is nothing like her fibromyalgia. Patient said that this attack came on after a week long history of eating fatty foods consistent of barbecue and cake and she subsequently developed her attack after that. She presents today for evaluation and treatment. 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% stenosis in first diagonal, all other coronaries normal. History of left heart catheterization (Chronic 06/19/18) Mild, nonobstructive CAD [facility] 30% stenosis in first diagonal, all other coronaries normal. Abnormal EKG (Chronic) GERD (gastroesophageal reflux disease) (Chronic) Hypertension (Chronic) Fibromyalgia (Chronic) Medical History: Medical History (Last Reviewed 07/12/18 @ 12:30 by Sheldon Tao MD) Hyperlipidemia (Chronic) E78.5 Atherosclerotic heart disease of [place] coronary artery without angina pectoris (Chronic) Onset Date: 06/19/18 I25.10 Mild, nonobstructive CAD per cath done @ [facility], Dr. Pascual: 30% stenosis in first diagonal, all other coronaries normal. Dyspnea on exertion (Acute) R06.09 Cholelithiasis (Acute) K80.20 Abnormal EKG (Chronic) R94.31 GERD (gastroesophageal reflux disease) (Chronic) K21.9 Hypertension (Chronic) I10 Fibromyalgia (Chronic) M79.7 Macular degeneration H35.30 Allergies ampicillin Allergy (Verified 07/12/18 12:17) Rash lisinopril Allergy (Verified 07/12/18 12:17) Rash Penicillins [PCN] Allergy (Verified 07/12/18 12:17) Rash Home Medications: Ambulatory Orders Medication Instructions Recorded Leticia Allergy 180 mg PO PRN PRN 05/17/18 Atenolol/Chlorthalidone 0.5 tab PO DAILY 05/17/18 [Atenolol-Chlorthalidone 100-25] Surgical History: Surgical History (Last Reviewed 07/12/18 @ 12:30 by Sheldon Tao MD) History of left heart catheterization (Chronic) Onset Date: 06/19/18 Z98.890 Mild, nonobstructive CAD per cath done @ [facility], Dr. Pascual: 30% stenosis in first diagonal, all other coronaries normal. S/P anal fissurectomy (Acute) Z98.890, Z87.19 Smoking Status: Never smoker - *Family History Maternal Family History: Family History (Last Updated 05/30/18 @ 15:34 by Danna Love) Mother Arrhythmia Cancer Father Myocardial infarction CAD (coronary artery disease) Carotid disease, bilateral History Items: No pertinent history Review of Systems Cardiovascular: Denies: Chest Pain, Chest Pressure, Chest Tightness, Palpitations Respiratory: Denies: Cough, Hemoptysis, Shortness of breath at rest, Shortness of breath upon exertion, Wheezing Gastrointestinal: Denies: Abdominal Pain, Constipation, Diarrhea, Hematemesis, Nausea, Melena, Vomiting VTE Information - Inpt Only VTE Present on Admission: No VTE Mechan Device Prophylaxis: SCD's VTE Pharm Prophylaxis ordered?: No Reason prophylaxis not ordered:: Treatment Not Indicated Patient Problems: Active and Suspected Problems (Last Updated 06/20/18 @ 09:32 by Danna Love) Calculus of gallbladder with acute on chronic cholecystitis without obstruction (Acute) - Physical Exam Lungs: Clear to auscultation Cardiovascular: Regular rate, Regular Rhythm, No murmurs Abdomen: Bowel Sounds Present, Soft, Non Tender, Non-Distended Vital Signs Temp Pulse Resp BP Pulse Ox 97 F L 77 16 162/82 H 96 07/12/18 12:17 07/12/18 12:17 07/12/18 12:17 07/12/18 12:17 07/12/18 12:17 Oxygen Delivery Method Room Air Weight: 195 lb 15.855 oz Body Mass Index (BMI) 37.0 Assessment/Plan All Active Problems (Last Updated 06/20/18 @ 09:32 by Danna Love) Calculus of gallbladder with acute on chronic cholecystitis without obstruction (Acute) Dyspnea on exertion (Acute) Cholelithiasis (Acute) S/P anal fissurectomy (Acute) My plan is to perform a laparoscopic cholecystectomy with possible intraoperative cholangiograms. The planned surgical procedure was discussed extensively with the patient. The risks, benefits, anticipated outcomes and possible complications were mentioned. I stuff has also explained the procedure in understandable terms and the patient was given the option to take printed material concerning the planned procedure. The patient had the opportunity to ask questions concerning the planned procedure. The patient freely consents to the planned procedure. 07/12/18 1232 <Electronically signed by Sheldon Tao MD> Date Sheldon Tao MD [facility] Signature: Date (if applicable) CC: Sheldon Tao MD; Adeel Russo MD Signed GALLBLADDER Observed: 07/12/2018 Status: F Source: [place] 12:00 AM [facility] Patient: ANAMIKA LI : 1945 (73/F) Acct Num: [id number] Phys: Aislinn MAGAÑA,Sheldon Unit Num: [id number] Loc: [facility] Specimen: [id number] Received: 07/12/18 - 1505 Spec Type: GALLBLADDE TISSUES 1 TISSUES: Gallbladder, NOS GROSS DESCRIPTION Received is one container labeled with the patient's name and designated gallbladder and contents. The specimen consists of a gallbladder measuring 10 cm in length and up to 5 cm in diameter. The external surface is pink-amaro, smooth and glistening for the most part. Focally it is granular, hemorrhagic and contains cautery artifact. The gallbladder contains green- yellow mucoid bile and multiple mulberry, yellowish-green stones measuring in aggregate 4 x 3 x 0.5 cm and 0.1 to 0.5 cm in greatest dimension. The mucosa is bile-stained and without any mass lesions. The mucosa also shows several yellowish streaks consistent with cholesterolosis. The gallbladder wall measures up to 0.2 cm in thickness. Model Maker Scale sections from the gallbladder and the cystic duct are submitted in one cassette. / SJ:gunnar 07/12/18 TC:3 CPT: 24835 HEADER OPERATION: Laparoscopic cholecystectomy PRE-OP DIAGNOSIS: Cholelithiasis TISSUE SUBMITTED: Gallbladder and contents MICROSCOPIC DESCRIPTION Slides are reviewed. MICROSCOPIC DIAGNOSIS Gallbladder, cholecystectomy: Cholesterolosis, mild chronic cholecystitis and cholelithiasis. AM:gunnar 07/15/18 Signed [facility] 07/15/18 <signature on file> Performed By: #### PGALL #### [facility] [address] [place], [address] CBC-COMPLETE BLOOD CNT Collected: 06/19/2018 Status: F Source: [place] NO DIFF 8:08 AM [facility] TYPE CODE TESTS RESULT OUT OF RANGE REFERENCE UNITS LAB L100.1000 4.4-11.0 K/mm3 Normal WBC 5.3 LAB L100.1200 4.2-5.4 M/mm3 Normal RBC 4.39 LAB L100.1300 12.0-15.0 g/dl Normal HGB 13.3 LAB L100.1400 37-47 % Normal HCT 40.0 LAB L100.1500 81-99 fL Normal MCV 91.1 LAB L100.1600 27.0-32.0 pg Normal MCH 30.3 LAB L100.1700 32-36 g/gl Normal MCHC 33.3 LAB L100.1810 11.6-14.6 % Normal RDW CV 12.7 LAB L100.1820 35.1-43.9 fl Normal RDW SD 42.3 LAB L100.1900 150-450 K/mm3 Normal PLT 173 LAB L100.2000 6.2-12.0 fl Normal MPV 10.0 Performed By: #### L100.0500 #### [facility] [address] [place], [address] BASIC METABOLIC Collected: 06/19/2018 Status: F Source: [place] PROFILE ([facility]) 8:08 AM [facility] TYPE CODE TESTS RESULT OUT OF RANGE REFERENCE UNITS LAB L501.0100 74-106 mg/dL Normal GLU 99 Result Comment: Please note revised GLUCOSE reference range effective 2017. LAB L501.1000 7-18 mg/dL High BUN 20 LAB L501.1100 0.55-1.02 mg/dL Normal CREAT,SERUM 0.72 Result Comment: The validity of the calculated GFR AND GFRAA in patients over 70 years has not been determined. Clinical correlation is essential. LAB L501.1110 >60 mL/min Normal EST GFR 85 Result Comment: Non- GFR Calc LAB L501.1115 >60 mL/min Normal EST GFR - AA 102 Result Comment: GFR Calc LAB L501.1255 ml/min Normal Estimated CRCL 38.94 LAB L501.1300 10-20 RATIO High BUN/CRE 27.7 LAB L501.2200 8.5-10 mg/dL Normal .1 CA 8.8 LAB L501.5300 136-14 mmol/L Normal 5 NA 140 LAB L501.5600 3.5-5. mmol/L Low 1 K 3.3 LAB L501.5900 98-107 mmol/L Normal CL 104 LAB L501.6100 21.0-3 mmol/L Normal 2.0 CO2 25.0 LAB L501.6200 5-15 Normal GAP 11 Performed By: #### L500.2500 #### [facility] [address] [place], [address] OFFICE VISIT REPORT Observed: 06/10/2018 Status: F Source: [place] 12:56 PM [facility] [address] [place] [address] OFFICE VISIT Date of Service: 06/07/18 MR#: [id number] Acct: [id number] Patient: ANAMIKA LI Rep #: [id number] : 1945 Provider: Danna Love Age/Sex: 72/F [place] [facility]: Signed Intake Intake Visit Reasons: CATH TEACHING - DANNA Chief Complaint: cardiac risk stratification Allergies ampicillin Allergy (Verified 05/30/18 15:36) Rash lisinopril Allergy (Verified 05/30/18 15:36) Rash Penicillins [PCN] Allergy (Verified 05/30/18 15:36) Rash Medications Leticia Allergy 180 mg PO PRN PRN 05/17/18 [History Confirmed 05/30/18] Atenolol/Chlorthalidone [Atenolol-Chlorthalidone 100-25] 0.5 tab PO DAILY 05/17/18 [History Confirmed 05/30/18] Docusate Sodium 200 mg PO QHS 05/17/18 [History Confirmed 05/30/18] Doxepin HCl 30 mg PO QHS 05/17/18 [History Confirmed 05/30/18] Eszopiclone 3 mg PO QHS PRN MDD fibromalgya 05/17/18 [History Confirmed 05/30/18] Fluticasone 0.05% 2 spry NASAL DAILY PRN 05/17/18 [History Confirmed 05/30/18] Omeprazole 20 mg PO DAILY 05/17/18 [History Confirmed 05/30/18] Potassium Chloride 1 tab PO DAILY 05/17/18 [History Confirmed 05/30/18] Vits A,C,E/Lutein/Minerals [Healthy Eyes Caplet] 2 tab PO DAILY 05/17/18 [History Confirmed 05/30/18] Calcium Carbonate/Vitamin D3 [Calcium 600-Vit D3 500 Softgel] 1 ea PO DAILY 05/29/18 [History Confirmed 05/30/18] Multivit-Min/Iron/Folic/Lutein [Centrum Silver Women Tablet] 1 ea PO DAILY 05/29/18 [History Confirmed 05/30/18] Oat Bran 1,700 mg PO DAILY 05/29/18 [History Confirmed 05/30/18] Vitamin E 400 unit PO DAILY 05/29/18 [History Confirmed 05/30/18] Nursing Note Pt here for cath teaching for abnormal stress. Pt needs urgent cholecystectomy, so she will not take Plavix, just ASA. Watched movie and written instructions reviewed verbally and given to patient. Cath scheduled for , Jun 13 at 9:30 am, arrival time for pt 8am. 06/10/18 1256 <Electronically signed by Sheldon Pascual MD> Date Sheldon Pascual MD Cosigner Signature: Date (if applicable) CC: Danna Love STRESS TEST ECHO W/ Observed: 06/06/2018 Status: F Source: [place] CONTRAST 4:53 PM [facility] Cardiovascular Services [address] [place] [address] Stress Test Echo W/Contrast MR#: [id number] Acct: [id number] Name: ANAMIKA LI Rep #: [id number] : 1945 72 From: Sheldon Pascual MD Primary Care: Adeel Russo MD Status: REG CLI Ordering Dr: Sheldon Pascual MD Sex: F C Reason For Study: AARHYTHMIA Stress Results Protocol: Artemio Protocol Maximum Predicted HR: 149 bpm Target HR: 127 bpm% Max imum Predicted HR: 85 % DurationHeart Rate Stage (mm:ss) (bpm) BPCom ment BASELINE 73 140/70 0.2 CC DEFINITY STAGE 1 3:00 11 3 160/72 STAGE 2 0:14 12 6 / 0.2 CC DEFINITY RECOVERY 85 160/86 Stress Duration: 3:14 mm:ss Maximum Stress HR: 126 bpm Baseline Echocardiogram Findings The estimated ejection fraction is 65 %. Stress Echo Wall motion Data Resting WMIntermediate WMStress WM Resting Wall Motion Wall Motion Stress No regional wall motion No regional wall motion abnormalities noted. abnormalities noted. EKG Data Normal intervals are noted. The patient exercised according to the regular Artemio protocol for a total duration of 3:14. The maximum heart rate attained was 127 beats per minute. This was 85% of maximum predicted heart rate. The patient exercised into stage 2 of the Artemio protocol. At peak exercise, upsloping ST changes only were noted, which did not meet the criteria for ischemia. No clinical angina was noted. No arrhythmias noted. Interpretation Summary The estimated ejection fraction is 65 %. Normal, adequate, treadmill echocardiogram. Negative for ischemia by EKG and echocardiographic criteria. No anginal symptoms noted. No arrhythmias noted. Appropriate blood pressure response to exercise. Poor exercise capacity for age. Final LVEF of 75%. Decreased sensitivity due to poor echo windows requiring Definity agent. No complications. Ordering Physician: Sheldon Pascual Referring Physician: Sheldon Pascual Performed By: Katie Kramer, NAIDA, RVT 06/06/18 0182 Date Sheldon Pascual MD CC: Sheldon Pascual MD; Adeel Russo MD Date Dictated: 06/05/18 1345 Date Transcribed: 06/06/181652 Vehicle Painter: Signed LIVER PROFILE Collected: 05/31/2018 Status: F Source: [place] 10:53 AM [facility] TYPE CODE TESTS RESULT OUT OF RANGE REFERENCE UNITS LAB L501.1500 6.4-8.2 g/dL Normal T PROT 7.7 LAB L501.1800 3.2-5.0 g/dL Normal ALB 3.7 LAB L501.1950 2.2-4.2 g/dL Normal GLOB 4.0 LAB L501.4100 15-37 U/L High AST 45 LAB L501.4305 45-117 U/L Normal ALK P 86 LAB L501.4405 13-56 U/L High ALT 226 LAB L501.4600 0.20-1.00 mg/dL Normal T BILI 0.40 LAB L501.4700 0.00-0.30 mg/dL Normal D BILI 0.13 Performed By: #### L500.3400, L500.4100 #### [facility] [address] [place], [place], [id number] LIPID PROFILE Collected: 05/31/2018 Status: F Source: [place] 10:53 AM [facility] TYPE CODE TESTS RESULT OUT OF RANGE REFERENCE UNITS LAB L501.4900 200 mg/dL Normal CHOL 183 Result Comment: <200 mg/dL Desirable 200-240 mg/dL Borderline >240 mg/dL High Risk LAB L501.5000 mg/dL Normal TRIG 186 Result Comment: The drugs N-Acetylcysteine and Metamizole may falsely depress this assay. Serum Triglycerides Reference Interval Normal <150 mg/dL Borderline high 150 - 199 mg/dL High 200 - 499 mg/dL Very High > or = 500 mg/dL LAB L501.6400 mg/dL Low HDL 37 Result Comment: The drugs N-Acetylcysteine and Metamizole may falsely depress this assay. Reference Range HDL <40 mg/dL Low HDL Cholesterol HDL >or= 60 mg/dL High HDL Cholesterol LAB L501.6500 0-130 mg/dL Normal LDL 109 LAB L501.6600 5-40 mg/dL Normal VLDL 37 Performed By: #### L500.3400, L500.4100 #### [facility] [address] [place], [place], [id number] CARDIOLOGY VISIT Observed: 05/30/2018 Status: F Source: [place] REPORT 3:52 PM [facility] [address] [place] [address] OFFICE VISIT Date of Service: 05/30/18 MR#: [id number] Acct: [id number] Name: ANAMIKA LI Rep #: [id number] : 1945 Provider: Sheldon Pascual MD Age/Sex: 72/F [place] [facility] [place] Status: Signed HPI HPI Chief Complaint: cardiac risk stratification Details: ANAMIKA LI, is a 72 F who presents to the office today for cardiac risk stratification for upcoming gallbladder surgery by Dr. Tao. Patient is a 72-year-old nondiabetic non-smoking female, with hypertension which is well-controlled, unknown cholesterol, no previous cardiovascular disease. Patient denies any chest pain, angina, shortness of breath or dyspnea on exertion, and is recently been under a significant amount of psychosocial stress due to her hot water tank breaking in her landlord not fixing it. Patient developed a gallbladder attack with abdominal pain requiring visitation to [facility] ER on 05/17/18. At that time an EKG was performed which showed normal sinus rhythm with what appeared to be dynamic anterior lateral T-wave and ST segment depression. Patient was found by ultrasound to have cholelithiasis and mild gallbladder wall thickening and positive sonographic Salinas sign diagnostic for acute cholecystitis. Patient was referred to our office for cardiac risk stratification given the abnormal EKG. The patient denies any previous stress test or catheterization. She denies any previous CVA. She is asymptomatic from a chest pain standpoint. In our office today her blood pressure is 120/70, pulse is 64 and regular. Her physical exam demonstrates moderate obesity, clear lungs bilaterally, regular rate and rhythm, normal S1/S2, no S3 or S4. No murmurs are detected. She has no edema. Lipids are pending. Intake Vital Signs05/30/18 Height 5 ft 1 in 05/30/18 Weight: 200 lb 05/30/18 Body Mass Index (BMI) 37.8 05/30/18 Blood Pressure 120/70 Intake Visit Reasons: ABN EKG (AISLINN) NEEDS KAMINI Assistant Hvac Mechanic Required: No Is patient in pain?: No Allergies ampicillin Allergy (Verified 05/30/18 15:36) Rash lisinopril Allergy (Verified 05/30/18 15:36) Rash Penicillins [PCN] Allergy (Verified 05/30/18 15:36) Rash Medications Leticia Allergy 180 mg PO PRN PRN 05/17/18 [History Confirmed 05/30/18] Atenolol/Chlorthalidone [Atenolol-Chlorthalidone 100-25] 0.5 tab PO DAILY 05/17/18 [History Confirmed 05/30/18] Docusate Sodium 200 mg PO QHS 05/17/18 [History Confirmed 05/30/18] Doxepin HCl 30 mg PO QHS 05/17/18 [History Confirmed 05/30/18] Eszopiclone 3 mg PO QHS PRN MDD fibromalgya 05/17/18 [History Confirmed 05/30/18] Fluticasone 0.05% 2 spry NASAL DAILY PRN 05/17/18 [History Confirmed 05/30/18] Omeprazole 20 mg PO DAILY 05/17/18 [History Confirmed 05/30/18] Potassium Chloride 1 tab PO DAILY 05/17/18 [History Confirmed 05/30/18] Vits A,C,E/Lutein/Minerals [Healthy Eyes Caplet] 2 tab PO DAILY 05/17/18 [History Confirmed 05/30/18] Calcium Carbonate/Vitamin D3 [Calcium 600-Vit D3 500 Softgel] 1 ea PO DAILY 05/29/18 [History Confirmed 05/30/18] Multivit-Min/Iron/Folic/Lutein [Centrum Silver Women Tablet] 1 ea PO DAILY 05/29/18 [History Confirmed 05/30/18] Oat Bran 1,700 mg PO DAILY 05/29/18 [History Confirmed 05/30/18] Vitamin E 400 unit PO DAILY 05/29/18 [History Confirmed 05/30/18] PFSH Medical History Cholelithiasis (Acute) Abnormal EKG (Chronic) GERD (gastroesophageal reflux disease) (Chronic) Hypertension (Chronic) Fibromyalgia (Chronic) Macular degeneration (Acute) Surgical History S/P anal fissurectomy (Acute) Family History Mother , of cancer Arrhythmia Cancer Father , of [place] Myocardial infarction CAD (coronary artery disease) Carotid disease, bilateral Social History Smoking Status: Never smoker alcohol intake: never ROS Const Const: Positive for other (Referred by surgery, abn ekg from er. Needs cholecystectomy); negative for fatigue, weakness, body ache, fever(s), headache(s), chills, frequent falls, night sweats, daytime sleepiness, difficulty sleeping, excessive sweating, weight gain, weight loss, increased appetite, poor appetite or anorexia Eyes Eyes: Negative for blind spots, loss of peripheral vision, transient loss of vision, blurry vision, change in vision, double vision, floaters, tunnel vision or other ENT ENT: Negative for dizziness, hearing loss, tinnitus, Nosebleed/epistaxis, balance problems, post nasal drip, lip swelling, tongue swelling, bleeding gums, hoarseness, neck pain, dry mouth, other or headache(s) Cardio Chest Pain: No Palpitations: No Edema: None Muscle aches with walking: None Resp Respiratory: Negative for SOB with activity, SOB at rest, SOB orthopnea\SOB lying down, Coughing up blood/hemoptysis, chest congestion, pain on inspiration, snoring, stridor, wheezing, crackles, paroxysmal nocturnal dyspnea or other GI GI: Positive for other (Pain in abdomen after high fat food, confirmed stones in gallbladder); negative nausea, vomiting, heartburn, constipation, belching, bloating, cramping, vomiting blood/hematemesis, bright, red blood in stools, black,tarry stools, loose stools or Difficulty Swallowing : Negative for hematuria, frequent nighttime urination/ nocturia, erectile dysfunction or abnormal vaginal bleeding Musc Musc: Negative for balance problems, muscle aches/ myalgia, muscle weakness or joint pain Skin Skin: Negative redness, non-healing lesions, rash, unusual bruising, skin ulcer, wounds, jaundice or other Neuro Neuro: Negative for blurry vision, double vision, dizziness, lightheadedness, near syncope, syncope, orthostatic symptoms, confusion, memory loss, restless legs, vertigo, seizures, lack of coordination, other, weakness, headache(s) or frequent falls Mayur Hematologic/Lymphatic: Negative for easy bleeding, easy bruising, enlarged lymph nodes or other Endo Endo: Negative for cold intolerance, heat intolerance, flushing, increased thirst/drinking, increased hunger, hair loss, hair growth, other, fatigue or excessive sweating Psych Psych: Negative for anxiety, depression, thoughts of harming anyone, thoughts of harming yourself, visual hallucinations, panic attacks or audible hallucinations Allergy Allergy/Immunology: Negative for lip swelling, Negative for tongue swelling, Negative for rash, Negative for throat swelling, Negative for hives Cardiology Exam Const Appearance: cooperative, healthy appearing and no acute distress Nutritional Appearance: well nourished Orientation: alert, oriented x3 and oriented to person Head Head: normal to inspection, atraumatic and normocephalic Nose: external nose normal Face and Sinus: face symmetric Mouth: oral mucosae normal Eyes General: appearance normal, both eyes and all related structures Eyelids: eyelids normal Conjunctivae: conjunctivae normal Pupils: PERRL and normal by confrontation EOM: EOM intact bilaterally Neck Neck: normal visual inspection and full ROM Carotids: normal carotid upstroke Chest Chest inspection: normal inspection of the chest Auscultation: Bilateral: Clear to Auscultation Cardio Palpation: normal PMI Rate: regular rate Rhythm: regular rhythm Heart sounds: S1 normal and S2 normal GI GI: normal to inspection, no hepatosplenomegaly and bowel sounds present Neuro General: alert, oriented x3, awake, CN's II-XI intact bilaterally and moves all extremities Skin Skin: no rashes or lesions noted Extremities Pulses: Normal: Right Femoral Pulse, Left Femoral Pulse, Right Dorsalis Pedis Pulse, Left Dorsalis Pedis Pulse, Right Posterior Tibial Pulse, Left Posterior Tibial Pulse, Right Radial Pulse, Left Radial Pulse Lower Extremity Edema: None: Bilateral Psych Psychological: normal affect Assessment AND Plan 1. Abnormal EKG R94.31 Plan 1. Abnormal EKG: The patient has several risk factors for coronary artery disease but is asymptomatic at this time. Her EKG on 05/17/18 during her Rola cystitis episode showed normal sinus rhythm with anterior ST and T-wave changes possibly significant for ischemia. I recommended the patient be evaluated with a 2D echo with Doppler to document her LV function, pulmonary pressures and valvular status. In addition I recommended she undergo a treadmill echocardiogram to determine if she has any areas of ischemia. If either one of these are grossly abnormal, she may require a diagnostic coronary angiogram prior to any cholecystectomy. Should the patient require intervention I would highly recommend bare-metal stenting in order to facilitate cholecystectomy. If her stress test and echo are within normal limits, she will be deemed low risk for noncardiac surgery and may proceed with cholecystectomy. In the meantime she will continue her atenolol chlorthalidone for antihypertension. In addition we will obtain a fasting lipid profile to complete her risk stratification. Orders Orders: 2. Hypertension, unspecified type I10 Plan 2. Hypertension: Her blood pressure is fairly well-controlled. Continue present management with atenolol and chlorthalidone. 3. Return office in 6 months This note was generated using a voice recognition system and there may be incorrect words, spelling or punctuation that were not noted when reviewing the office note prior to saving. Orders Orders: Plan Detail Other Orders Orders: Follow Up +6M (Ankur) Coding Level of Care Code Off vis,new,level 4 Diagnoses Abnormal EKG R94.31 Hypertension, unspecified type I10 Hypertension type: unspecified Coding Level of Care Code Off vis,new,level 4 Diagnoses Abnormal EKG R94.31 Hypertension, unspecified type I10 Hypertension type: unspecified 05/30/18 1552 <Electronically signed by Sheldon Pascual MD> Date [facility]ld[facility]ual [facility] Signature: Date (if applicable) CC: Adeel Russo MD 12 LEAD EKG PERFORMED Observed: 05/30/2018 Status: F Source: [facility] [place] [facility] [place] [facility] [address] [place] [address] [address] [facility] 05/30/18 1546 MR#: [id number] Acct: [id number] Name: ANAMIKA LI Rep #: [id number] : 1945 72 From: Sheldon Pascual MD Attending Dr: Sheldon Pascual MD Status: DEP [facility] Ordering Dr: Sheldon Pascual MD Date: 05/30/18 [place] [facility] [place] C Admitted: BMS/12 Lead EKG [place] [facility] ECG Report Interpretation Sinus Rhythm Low voltage in precordial leads. -Poor R-wave progression -may be secondary to pulmonary disease consider old anterior infarct. - Diffuse nonspecific T-abnormality. ABNORMAL Electronically signed on 09/20/2018 at 15:51 by Sheldon Pascual Software Version [id number] 09/20/18 1556 Date Sheldon Pascual MD CC: Adeel Russo MD Date Dictated: 05/30/181545 Date Transcribed: 05/30/181545 Vehicle Painter: Signed SURGERY VISIT REPORT Observed: 05/28/2018 Status: F Source: [place] 11:39 AM [facility] [place] [address] [place] [address] [address] [place] [address] OFFICE VISIT Date of Service: 05/28/18 MR#: [id number] Acct: [id number] Name: ANAMIKA LI Rep #: [id number] : 1945 Provider: Sheldon Tao MD Age/Sex: 72/F Location: [facility] Status: Signed Intake Vital Signs05/28/18 Height 5 ft 1 in 05/28/18 Weight: 199 lb 05/28/18 Body Mass Index (BMI) 37.5 Intake Visit Reasons: ER F/U US 05/22 Gall Bladder Issues Assistant Hvac Mechanic Required: No Is patient in pain?: No Allergies ampicillin Allergy (Verified 05/28/18 10:55) Rash lisinopril Allergy (Verified 05/28/18 10:55) Rash Penicillins [PCN] Allergy (Verified 05/28/18 10:55) Rash Medications Leticia Allergy 180 mg PO DAILY 05/17/18 [History Confirmed 05/28/18] Atenolol/Chlorthalidone [Atenolol-Chlorthalidone 100-25] 0.5 tab PO DAILY 05/17/18 [History Confirmed 05/28/18] Docusate Sodium 200 mg PO QHS 05/17/18 [History Confirmed 05/28/18] Doxepin HCl 30 mg PO QHS 05/17/18 [History Confirmed 05/28/18] Eszopiclone 3 mg PO QHS PRN 05/17/18 [History Confirmed 05/28/18] Fluticasone 0.05% 2 spry NASAL DAILY 05/17/18 [History Confirmed 05/28/18] Omeprazole 20 mg PO DAILY 05/17/18 [History Confirmed 05/28/18] Potassium Chloride 1 tab PO DAILY 05/17/18 [History Confirmed 05/28/18] Vits A,C,E/Lutein/Minerals [Healthy Eyes Caplet] 2 tab PO DAILY 05/17/18 [History Confirmed 05/28/18] PFSH Medical History GERD (gastroesophageal reflux disease) (Chronic) Hypertension (Chronic) Fibromyalgia (Chronic) Macular degeneration (Acute) Surgical History S/P anal fissurectomy (Acute) Social History Smoking Status: Never smoker alcohol intake: never HPI HPI HPI: ANAMIKA LI, is a 72 F who presents to the office today for further evaluation of symptomatic cholelithiasis. Patient was recently seen and was [facility]'s emergency department on 05/17/2018. She was having upper abdominal and lower chest discomfort. She was not complaining of any shortness of breath or lightheadedness or palpitations. Workup in the emergency department included a CAT scan which looked as if the gallbladder wall was thickened and was consistent with probable early cholecystitis. Her liver function tests at that time were all within normal limits. She subsequently underwent a gallbladder ultrasound which showed the gallbladder wall to be 4 mm positive sonographic Salinas sign. There was no pericholecystic fluid. And multiple gallstones were noted. Common bile duct measured 5 mm. She has a known history of fibromyalgia and states that the discomfort that she was having is nothing like her fibromyalgia. Patient said that this attack came on after a week long history of eating fatty foods consistent of barbecue and cake and she subsequently developed her attack after that. She presents today for evaluation and treatment. ROS General General: Yes weight change and appetite; no fatigue, colon cancer, breast cancer or weakness HEENT HEENT: Yes eye injury and eye surgery; no difficulty swallowing, swollen glands or hoarseness Endo Endocrine: No thyroid disease, diabetes mellitus, thyroid cancer, Hair loss, heat intolerance or cold intolerance Skin Skin: No rash or changing moles Breast Breast: No left breast lump, right breast lump, nipple discharge, breast pain, abnormal mammogram, abnormal US or breast enlargement Musc Musculoskeletal: Yes back problems and arthritis; no rheumatoid arthritis, gout or joint pain Cardio Cardiovascular: Yes high blood pressure; no murmur, pacemaker, heart disease, atrial fibrillation, heart attack, heart stent, palpitations, shortness of breat with exertion or chest pain Psych Psychiatric: No depression, anxiety or hearing voices Resp Respiratory: No shortness of breath, No sleep apnea, No cough, No COPD, No asthma, No emphysema, No wheezing Gastro Gastrointestinal: Yes abdominal pain, Yes nausea or vomiting, No diarrhea, No constipation, No blood in stool, Yes acid reflux, No hemorrhoids, No ulcers, Yes gallbladder problem, No black,tarry stools Mayur Hematologic: No blood thinners, No blood disorders, No bleeding, No anemia, No blood clots Neuro Neurologic: No system reviewed and no additional complaints, except as docu, No as per HPI, No abnormal walking, No abnormal hearing, No abnormal movements, No abnormal speech, No behavioral changes, No burning sensations, No confusion, No seizure-like activity, No unsteadiness, No dizziness, No localized weakness, No frequent falls, No headache(s), No lack of coordination, No loss of vision, No memory loss, No numbness, No other visual disturbances, No radiating pain, No restless legs, No sensory deficit, No fainting, No tingling, No tremor(s), No weakness, No other Exam Const General: well developed, no acute distress, well hydrated Orientation: oriented to person, oriented to place, oriented to time [facility] Head: normocephalic, atraumatic Ears: external ears normal Mouth: moist mucous membranes Eyes Sclera: sclerae normal Pupils: normal by confrontation Neck Neck: no lymphadenopathy noted Neck mass: No Thyroid: symmetrical, thyroid normal Chest Chest palpation AND inspection: normal inspection of the chest Breast Palpation: No nipple discharge Resp Effort AND Inspection: normal respiratory effort Auscultation: clear to auscultation bilaterally Percussion: percussion normal Cardio Rate: regular rate Rhythm: regular rhythm Heart Sounds: no murmurs GI Palpation: soft, tender, no masses, no hepatosplenomegaly Auscultation: normal bowel sounds Rectal Exam: other Other: Rectal exam deferred. Extrem General: no clubbing, cyanosis or edema, normal to inspection Assessment AND Plan Problems 1. Calculus of gallbladder with acute cholecystitis without obstruction K80.00 2. Fibromyalgia M79.7 3. Hypertension, unspecified type I10 Plan My plan is to perform a laparoscopic cholecystectomy with intraoperative cholangiogram. The planned surgical procedure was discussed extensively with the patient. The risks, benefits, anticipated outcomes and possible complication were mentioned. My staff has also explained the procedure in understandable terms and the patient was given the option to take printed material concerning the planned procedure. The patient had the opportunity to ask questions concerning the planned procedure. The patient freely consents to the planned procedure. Coding Level of Care Code Off vis,new,level 3 Diagnoses Calculus of gallbladder with acute cholecystitis without obstruction K80.00 Cholelithiasis location: gallbladder Cholecystitis acuity: acute Fibromyalgia M79.7 Hypertension, unspecified type I10 Hypertension type: unspecified 05/28/18 1139 <Electronically signed by Sheldon Tao MD> Date Sheldon Tao MD Cosigner Signature: Date (if applicable) CC: ROBY GALLO MD; Adeel Russo MD GALLBLADDER Observed: 05/22/2018 Status: F Source: [place] 11:03 AM [facility] Imaging Services [facility] [place] [address] Gallbladder MR#: [id number] Acct: [id number] Name: ANAMIKA LI Rep #: [id number] : 1945 F 72 From: Shar Avila PCP: Adeel Russo MD Status: REG CLI Study: Gallbladder Date of Exam: 05/22/18 Exam# [id number] Ordering Dr: Roby Gallo MD STUDY: ABDOMINAL ULTRASOUND - RIGHT UPPER QUADRANT REASON FOR VISIT: Female, 72 years old. Intermittent abdominal pain. Follow-up CT performed 05/17/2018. TECHNIQUE: Ultrasound evaluation of the right upper quadrant was performed with real-time and static blake-scale imaging. TECHNICAL QUALITY: Adequate. COMPARISON: CT abdomen and pelvis May 17, 2018. FINDINGS: Liver: The liver measures 16.9 cm. There is increased echogenicity consistent with fatty infiltration. The bile ducts are within normal limits. There is hepatic color flow. The direction of portal flow is hepatopetal. There is no demonstrated mass lesion. Gallbladder: Gallbladder borderline distended. The gallbladder wall measures 4 mm. Positive sonographic Salinas sign. There is no pericholecystic fluid. Multiple gallstones. Common Bile Duct (C.B.D.): The common bile duct measures 5 mm. Pancreas: Normal size of the head, body and tail of the pancreas. There is increased echogenicity of the pancreas. There is no demonstrated pancreatic mass or cyst. Right Kidney: Normal size of the right kidney. The right kidney measures 10.8 cm. Normal renal cortex. The right cortex measures 1.1 cm. There is no demonstrated renal mass or cyst. There is no right hydronephrosis. US/Gallbladder IMPRESSION: Cholelithiasis, mild gallbladder wall thickening and positive sonographic Salinas sign, findings suggestive but not diagnostic of acute cholecystitis. Electronically Signed: Shar Avila MD at 5:46 EDT , Service support , CC: ROBY GALLO MD; Adeel Russo MD Vehicle Painter: Signed 12 LEAD ELECTROCARDIOGRAM Observed: 05/20/2018 Status: F Source: [place] 1:44 PM [facility] Cardiovascular [place] [address] 12 Lead EKG 05/17/18 2224 MR#: [id number] Acct: [id number] Name: ANAMIKA LI Rep #: [id number] : 1945 72 From: Deny Toribio MD Attending Dr: Status: DEP ER Ordering Dr: Roby Gallo MD Date: 05/17/18 Location: ED Sex: F C Admitted: Test Reason : CHEST/ABDOMINAL PAIN Blood Pressure : / mmHG Vent. Rate : 076 BPM Atrial Rate : 076 BPM P-R Int : 174 ms QRS Dur : 092 ms QT Int : 364 ms P-R-T Axes : 045 -31 210 degrees QTc Int : 409 ms Normal sinus rhythm Left axis deviation ST AND T wave abnormality, consider anterolateral ischemia Abnormal ECG Confirmed by DENY TORIBIO MD ([id number]), editor producer VONNIE SCHWARTZ ([id number]) on 05/20/2018 1:44:15 PM Referred By: SABINO Confirmed By:DENY TORIBIO MD 05/20/18 1344 Date Deny Toribio MD CC: ROBY GALLO MD; Adeel Russo MD Signed EMERGENCY DEPARTMENT Observed: 05/18/2018 Status: F Source: [place] SUMMARY 12:52 AM [facility] Medical Records Department [address] [place] [address] Emergency Department Summary 05/17/18 2309 MR#: [id number] Acct: [id number] Name: ANAMIKA LI Rep #: [id number] : 1945 72 From: Roby Gallo MD PCP: Adeel Russo MD Status: REG ER History of Present Illness Chief Complaint: Abd Pain Informant: Patient Onset: Today Context: Gradual Onset Timing: Continuous, Waxes and wanes Quality: cramping Location: mid-upper abd Current Severity: Mild Maximum Severity: Severe Worsened by: nothing Relieved by: nothing despite having 2 BM's Associated Symptoms: radiation into mid-back when bad. no n/v/d/BRBPR/melena, sob. Narrative: At times, pain was across her upper abdomen/lower chest, but she denies any shortness of breath or lightheadedness or palpitations. He does not recall having had this pain before although she states that the fact that she has fibromyalgia has been confusing her about this pain. Saying that she cannot tell if this is fibromyalgia discomfort or not. She states that somehow she can tell she is having fibromyalgia discomfort when she pushes on her own abdomen and at times she felt that it was. She has never had any abdominal surgeries. He denies having any radiation into an arm or a shoulder. Prior similar symptoms: No - Past Medical History (1) GERD (gastroesophageal reflux disease) Status: Chronic (2) Hypertension Status: Chronic (3) Fibromyalgia Status: Chronic Past Medical History - Allergies and Home Meds Allergies/Adverse Reactions: Allergies ampicillin Allergy (Verified 05/17/18 21:50) Rash lisinopril Allergy (Verified 05/17/18 21:50) Rash Penicillins [PCN] Allergy (Verified 05/17/18 21:50) Rash Primary Care Physician: Adeel Russo MD [Primary Care Provider] - Smoking Status: Never smoker Review of Systems All systems negative except as indicated Gastrointestinal: Reports: Abdominal pain Musculoskeletal: Reports: Back pain Physical Exam Vital Signs/Narrative: Vital Signs 05/17/18 21:46 96.6 F L 74 18 175/84 H 94 Inital Vital Signs reviewed: Yes General: Well nourished, Well developed, - - nad Head: Normocephalic, Atraumatic Eyes: Perrl, EOMI ENT: Moist mucous membranes, No rhinorrhea Neck: Supple, Nontender Cardiovascular: Regular rate, Regular rhythm, No murmurs Respiratory: No distress, CTA bilaterally, Chest nontender Abdomen: Soft, Nondistended, Normal bowel sounds, Tender - Mildly tender diffusely.. Negative for: Guarding, Rebound tenderness, Salinas's sign Back: Nontender, Normal Inspection. Negative for: CVA tenderness Extremities: Nontender, No edema Skin: Normal color, No rash Neurological: Alert, Oriented x3, Cranial nerves II-XII grossly intact, Normal Strength, Normal Sensation Psychological: Normal affect Diagnostic/Tx/Re-eval Impressions Abdomen/Pelvis CT 05/17/18 22:23 IMPRESSION: There is gallbladder wall thickening and surrounding inflammation, suggesting acute cholecystitis. There appears to be biliary ductal dilatation. There is diverticulosis of the distal colon. There are no acute bowel abnormalities. There is no ascites, free air or significant lymphadenopathy. Electronically Signed: Krysta Ross MD at 23:33 EDT Tel Direct: [phone], Service support , Chest X-Ray 05/17/18 22:40 IMPRESSION: No acute cardiopulmonary abnormalities. Electronically Signed: Krysta Ross MD at 23:35 EDT Tel Direct: [phone], Service support , 05/17/18 22:23 CT Abd [Abdomen/Pelvis without Cont] [CT] Stat 05/17/18 22:40 Chest PA and Lateral [RAD] Stat Laboratory Results WBC 11.0 (4.4-11.0) K/mm3 RBC 4.64 (4.2-5.4) M/mm3 Hgb 13.9 (12.0-15.0) g/dl Hct 42.2 (37-47) % MCV 90.9 (81-99) fL - Rhythm Strip Rhythm Strip: Sinus Rhythm Rate: 70 Ectopy: None - EKG Initial EKG Interpretation: Sinus Rhythm, No Acute Injury Pattern, LAFB, Non-Specific ST Changes - Medical Decision Making Labs show a white blood count at the high end of the normal range with a leftward shift, no bandemia. The rest of her labs including liver enzymes and lipase are normal. Clinically, her pain almost completely resolved without any treatment here. I reexamined her. She still has no Sal[place] sign and is barely tender in the right upper quadrant, although her CT shows some pericholecystic stranding that may be consistent with early cholecystitis. There is no pericholecystic fluid collections or stones seen or pneumobilia. She has diverticulosis without any evidence of diverticulitis or any other acute abnormality. Chest x-ray unremarkable, cardiac workup unremarkable. On further history, she states she ate a fatty meal this morning and did get worse later and throughout the day. She has been eating high fat diet lately as well. This is very likely biliary colic. No gallstones were seen on CT, however that is not a very sensitive test for gallstones. Since she is doing so well clinically, I suspect she can safely follow-up as an outpatient with an outpatient ultrasound, unless she gets worse prior following up. Discussed with Dr. Lynch, covering for the requested Dr. Tao, who agrees with this. Patient will get outpatient ultrasound tomorrow, Sunday, and follow-up on Sunday or Sunday with surgery in the office, returning to the ER for worsening problems. We discussed symptoms of acute cholecystitis, pancreatitis, and reasons to return to the ER. She is comfortable with this plan, and will attempt a no-fat diet until seen. ED Disposition - Plan for ED Patient: Disposition: Home or Assisted Living Chief Complaint: Abd Pain Diagnosis: Biliary colic Instructions: ED Abdominal Pain Gallstone Poss Referrals: Adeel Russo MD [Primary Care Provider] - Susan Lynch MD [STAFF PHYSICIAN] - (Call Sunday for appointment on Sunday or Sunday) What to do if you have Problems For any increased pain, shortness of breath, bleeding, nausea or vomiting, chest pain, or any unexpected problems, contact your Primary Care Provider. Call [facility] ([phone]) or report to the closest Emergency Room. Call 911 if necessary. 05/18/18 0052 <Electronically signed by Roby Gallo MD> Date Roby Gallo MD Cosigner Signature (If Indicated): Date CC: Adeel Russo MD URINALYSIS, COMPLETE Collected: 05/18/2018 Status: F Source: [place] 12:00 AM [facility] [place] [facility] Order Comment: Order Date: 05/17/18 Has pt arrived? Y How was Urine Obtained? CLEAN CATCH TYPE CODE TESTS RESULT OUT OF RANGE REFERENCE UNITS LAB L400.3000 Yellow COLOR Normal Yellow LAB L400.3050 Clear Normal CLARITY Clear LAB L400.3200 Normal mg/dl Normal GLUCOSE, UR Normal LAB L400.3300 Negative mg/dL Normal BILIRUBIN URINE Negative LAB L400.3400 Negative mg/dl Normal KETONE UR Negative LAB L400.3465 1.002-1.030 Normal SP.GR. DIPSTX 1.020 LAB L400.3550 5.0 - 8.0 pH UR Normal 6.0 LAB L400.3600 Negative mg/dl PROT Normal DIPSTX Negative LAB L400.3700 Normal mg/dl Normal UROBILI Normal LAB L400.3750 Negative Normal NITRITE UR Negative LAB L400.3780 Negative /ul High 25 OCCULT BLOOD-UR LAB L400.3800 Negative /ul High LEUK ESTERASE 500 LAB L400.4050 0-5 /hpf WBC Normal 5-10 SEEN LAB L400.4100 0-5 /hpf 0 Normal RBC-UA SEEN LAB L400.4150 5-10 /hpf SQUAM Normal EPI 0-5 SEEN LAB L400.4300 None Seen /hpf Normal BACTERIA RARE LAB L400.4350 <or=2+ /hpf 0 Normal MUCUS, URINE SEEN Performed By: #### L400.0001 #### [facility] [address] [place], [address] ABDOMEN/PELVIS WITHOUT Observed: 05/17/2018 Status: F Source: [place] 10:23 PM [facility] Imaging Services [address] [place] [address] Abdomen/Pelvis without Cont MR#: [id number] Acct: [id number] Name: ANAMIKA LI Rep #: [id number] : 1945 F 72 From: Krysta Ross MD PCP: Rafaela MAGAÑA,Adeel Status: REG ER Study: Abdomen/Pelvis without Cont Date of Exam: 05/17/18 Exam# [id number] Ordering Dr: Roby Gallo MD STUDY: CT ABDOMEN AND PELVIS WITHOUT CONTRAST REASON FOR EXAM: Female, 72 years old. Low abdominal pain RADIATION DOSAGE (If Supplied By Facility): CTDIvol = ( 18.50 ) mGy, DLP = ( 882.56 ) mGycm TECHNIQUE: Transaxial images were obtained from the lower chest to the upper thighs without oral contrast, and without intravenous contrast. Sagittal and coronal images were reconstructed. Individualized dose optimization techniques were used for this CT. COMPARISON: None. FINDINGS: There is minimal dependent atelectasis in both lung bases. There are calcified lymph nodes in the left hilum. There is no pleural effusion. The heart is normal in size. The liver is unremarkable. There is gallbladder wall thickening with surrounding stranding. There are multiple benign calcified granulomas in the spleen. The pancreas is unremarkable. The adrenal glands are unremarkable. The right kidney is unremarkable. There is no dilatation of the collecting system in the right kidney. The left kidney is unremarkable. There is no dilatation of the collecting system in the left kidney. There is a small hiatal hernia. The small bowel is unremarkable. There are diverticula in the distal colon without adjacent stranding. The appendix is visualized and appears normal. There are minimal scattered vascular calcifications. The IVC is unremarkable. The retroperitoneum is unremarkable. There is no free fluid in the abdomen. The urinary bladder is unremarkable. The uterus is normal in size and appearance. There are no abnormal masses in the adnexal regions. There are arcuate artery calcifications. There are small phleboliths scattered in the lower pelvis. The soft tissues are unremarkable. There are mild degenerative changes in the visualized spine. There are a few nonspecific sclerotic foci scattered in the pelvis. There are mild degenerative changes in both hips. CT/Abdomen/Pelvis without Cont IMPRESSION: There is gallbladder wall thickening and surrounding inflammation, suggesting acute cholecystitis. There appears to be biliary ductal dilatation. There is diverticulosis of the distal colon. There are no acute bowel abnormalities. There is no ascites, free air or significant lymphadenopathy. Electronically Signed: Krysta Ross MD at 23:33 EDT Tel Direct: [phone], Service support , CC: ROBY GALLO MD; Adeel Russo MD Vehicle Painter: Signed CHEST PA AND LATERAL Observed: 05/17/2018 Status: F Source: [place] 10:23 PM [facility] Imaging Services [address] [place] [address] Chest PA and Lateral MR#: [id number] Acct: [id number] Name: ANAMIKA LI Rep #: [id number] : 1945 F 72 From: Krysta Ross MD PCP: Adeel Russo MD Status: REG ER Study: Chest PA and Lateral Date of Exam: 05/17/18 Exam# [id number] Ordering Dr: Roby Gallo MD STUDY: X-RAY CHEST REASON FOR EXAM: Female, 72 years old. Abdominal pain TECHNIQUE: Frontal and lateral views of the chest were obtained. COMPARISON: None. FINDINGS: The lungs are underaerated. There are no focal airspace opacities. There is no demonstrated pleural abnormality. The cardiac silhouette is normal in size. There are calcified lymph nodes in the left hilum. Normal visualized pulmonary arteries. There is atherosclerotic calcification of the thoracic aorta. There are diffuse degenerative changes of the visualized spine. There are degenerative changes in both shoulders. There is no demonstrated abnormality of the visualized upper abdomen. RAD/Chest PA and Lateral IMPRESSION: No acute cardiopulmonary abnormalities. Electronically Signed: Krysta Ross MD at 23:35 EDT Tel Direct: [phone], Service support , CC: ROBY GALLO MD; Adeel Russo MD Vehicle Painter: Signed CBC W/DIFF, AUTOMATED Collected: 05/17/2018 Status: F Source: [place] 10:10 PM [facility] [place] [facility] TYPE CODE TESTS RESULT OUT OF RANGE REFERENCE UNITS LAB L100.1000 4.4-11.0 K/mm3 Normal WBC 11.0 LAB L100.1200 4.2-5.4 M/mm3 Normal RBC 4.64 LAB L100.1300 12.0-15.0 g/dl Normal HGB 13.9 LAB L100.1400 37-47 % Normal HCT 42.2 LAB L100.1500 81-99 fL Normal MCV 90.9 LAB L100.1600 27.0-32.0 pg Normal MCH 30.0 LAB L100.1700 32-36 g/gl Normal MCHC 32.9 LAB L100.1810 11.6-14.6 % Normal RDW CV 12.8 LAB L100.1820 35.1-43.9 fl Normal RDW SD 42.2 LAB L100.1900 150-450 K/mm3 Normal PLT 212 LAB L100.2000 6.2-12.0 fl Normal MPV 9.8 LAB L100.2100 47-70 % High NEUT% 82.1 LAB L100.2200 19-41 % Low LY% 13.6 LAB L100.2300 0-10 % Normal MONO% 3.3 LAB L100.2400 0-5 % Normal EO% 0.8 LAB L100.2500 0-1 % Normal BASO% 0.1 LAB L100.2550 0.0-0.9 % Normal IM GRAN % 0.100 Result Comment: IG% - Immature Granulocytes (promyelocytes, myelocytes and metamyelocytes) > 1% indicates that a LEFT SHIFT is Present. LAB L100.2620 2.0-7.7 X10 3/uL High Absolute Neut 9.0 LAB L100.2720 0.83-4.51 X10 3/ul Normal Absolute Lymph 1.50 Performed By: #### L100.0100 #### [facility] [address] [place], [address] COMPREHENSIVE METABOLIC Collected: 05/17/2018 Status: F Source: [facility] 10:10 PM [facility] [place] [facility] TYPE CODE TESTS RESULT OUT OF RANGE REFERENCE UNITS LAB L501.0100 74-106 mg/dL High GLU 134 Result Comment: Fasting Glucose result greater than or equal to 126 mg/dL suggests DIABETES MELLITUS per A.D.A. criteria. Please note revised GLUCOSE reference range effective 2017. LAB L501.1000 7-18 mg/dL Normal BUN 15 LAB L501.1100 0.55-1.02 mg/dL Normal CREAT,SERUM 0.73 Result Comment: The validity of the calculated GFR AND GFRAA in patients over 70 years has not been determined. Clinical correlation is essential. LAB L501.1110 >60 mL/min Normal EST GFR 84 Result Comment: Non- GFR Calc LAB L501.1115 >60 mL/min Normal EST GFR - AA 101 Result Comment: GFR Calc LAB L501.1255 ml/min Normal Estimated CRCL 38.94 LAB L501.1300 10-20 RATIO High BUN/CRE 20.6 LAB L501.1500 6.4-8. g/dL Normal 2 T PROT 7.7 LAB L501.1800 3.2-5. g/dL Normal 0 ALB 3.7 LAB L501.1950 2.2-4. g/dL Normal 2 GLOB 4.0 LAB L501.2000 0.9-2. RATIO Normal 4 A/G 0.9 LAB L501.2200 8.5-10 mg/dL Normal .1 CA 8.7 LAB L501.4100 15-37 U/L Normal AST 15 LAB L501.4305 45-117 U/L Normal ALK P 63 LAB L501.4405 13-56 U/L Normal ALT 20 LAB L501.4600 0.20-1 mg/dL Normal .00 T BILI 0.30 LAB L501.5300 136-14 mmol/L Normal 5 NA 137 LAB L501.5600 3.5-5. mmol/L Low 1 K 3.3 LAB L501.5900 98-107 mmol/L Normal CL 102 LAB L501.6100 21.0-3 mmol/L Normal 2.0 CO2 29.0 LAB L501.6200 5-15 Normal GAP 6 Performed By: #### L500.4050, L501.4010 #### [facility] [address] [place], [place], [address] TROPONIN-I Collected: 05/17/2018 Status: F Source: [place] 10:10 PM [facility] [place] [facility] TYPE CODE TESTS RESULT OUT OF RANGE REFERENCE UNITS LAB L501.4010 <0.045 ng/mL Normal < 0.015 TROPONIN-I Result Comment: TROPONIN-I EXPECTED VALUES <0.045 Negative 0.045 - 0.590 Consistent with Cardiac Damage > OR = 0.600 Critical Value Not every elevated troponin is indicative of VT. These values should be used with clinical judgement in examining the patient's clinical picture for diagnosis. To establish a diagnosis of VT versus myocardial injury, there must be a demonstrated rise and/or fall in the troponin values, in addition to ischemic symptoms, EKG changes, new regional wall motion abnormality, and/or angiographical evidence. PLEASE NOTE: REFERENCE RANGES EDITED 18 Performed By: #### L500.4050, L501.4010 #### [facility] [address] [place], [address] PROGRESS Observed: 04/17/2018 Status: COMPLETED Source: [place] 2:51 PM [facility] REPOSITORY O ID: [id number] Author: Victoria Thompson Service: (none) Author Type: Physician Type: Progress Notes Filed: 04/17/2018 3:39 PM Note Text: ? Victoria Thompson DPM Department of Podiatry [address] [address] Dept: [phone] Dept 04/17/2018 Initial Podiatric Office Visit: HPI: Anamika Li is a 72 year old female. Patient presents with toenail deformity to L hallux. Patient states that she had L hallux ingrowing toenail 8-10 years ago and had nail procedure but despite nail procedure, continues to have pain. Due to pain and thickness, is unable to cut her toenail. Patient is not diabetic and she is not a smoker. PCP: Adeel Russo MD PAST MEDICAL HISTORY Diagnosis Date - Carpal tunnel syndrome - Depressive disorder, not elsewhere classified - Esophageal reflux - Macular degeneration (senile) of retina, unspecified - Myalgia and myositis, unspecified - Obesity, unspecified - Unspecified essential hypertension Current Outpatient Prescriptions: ALPRAZolam (XANAX) 0.5 mg tablet Take 0.5-1 tablets by mouth once daily as needed for Anxiety for up to 90 days. amitriptyline (ELAVIL) 25 mg tablet Take 1-2 tablets by mouth daily at bedtime. As directed Atenolol-Chlorthalidone 100-25 mg per tablet TAKE 1/2 TABLET ONE TIME DAILY fluticasone (FLONASE) 50 mcg/actuation nasal spray USE 2 SPRAYS IN EACH NOSTRIL ONE TIME DAILY omeprazole (PRILOSEC) 20 mg capsule TAKE 1 CAPSULE EVERY DAY potassium chloride ER (K-DUR, KLOR-CON) 10 mEq tablet TAKE 1 TABLET EVERY DAY fexofenadine (LETICIA ALLERGY) 180 mg tablet Take 1 tablet by mouth once daily. eszopiclone (LUNESTA) 3 mg tab Take 1 tablet by mouth at bedtime as needed. AT BEDTIME. montelukast (SINGULAIR) 10 mg tablet Take 1 tablet by mouth daily at bedtime. vit A,C,R-Itnp-Ksdjph 7,160-113-100 qigz-gb-urfp ORAL Tab Take by mouth. As directed. Lutein 10 mg ORAL Tab Take by mouth. As directed. cholecalciferol(VITAMIN D 2,000 UNIT CAP) Take one(1) tablet daily. naproxen sodium(ALEVE 220 MG TAB) Take one(1) tablet twice daily. OMEGA 3 550 MG CAP Take one(1) tablet daily. OAT BRAN 500 MG TAB 2 tabs in am MULTIVITAMIN ORAL TAB Take one(1) tablet daily. CALCIUM + D 600 MG-200 UNIT ORAL TAB Take one(1) tablet two(2) times daily. TYLENOL EXTRA STRENGTH 500 MG ORAL TAB Take two(2) tablets every four(4) to six(6) hours as needed. No current facility-administered medications for this visit. ALLERGIES Allergen Reactions - Amoxicillin Rash - Asa [Salicylates] if not coated - Flagyl [Metronidazo* - Lisinopril - Penicillins Rash PAST SURGICAL HISTORY Procedure Laterality Date - PAST SURGICAL HISTORY OF wrist surgery right in [place] - PAST SURGICAL HISTORY OF wrist surgery left in [place] - PAST SURGICAL HISTORY OF fissurectomy FAMILY HISTORY Problem Relation Age of Onset - Diabetes Mother - Cancer Mother stomach - Macular Degen Mother - Cataract Mother - Heart Father cad - Hypertension Father - Glaucoma Other cousin and GM Social History Marital status: Single Spouse name: Years of education: Number of children: Social History Main Topics Smoking status: Never Smoker Smokeless tobacco: Never Used Alcohol use: No Drug use: No REVIEW OF SYSTEMS: CONSTITUTIONAL: No fevers, chills, nightsweats, unintended weight loss HEENT: Denies frequent or severe heaches, nasal congestion/sinus symptoms, problematic allergy problems. EYES: No diplopia or blurry vision. CARDIOVASCULAR: No chest pain, dyspnea, palpitations, orthopnea, PND, ankle edema. PULM: No dyspnea, unexplained cough. GI: No dysphagia/odynophagia, problematic reflux, constipation, diarrhea, changes in stool habits, hematochezia, melena. : No new urinary complaints, including dysuria, gross hematuria or pyuria. NEURO: No new balance problems, peripheral weakness/paresthesias or numbness of concern. MUSC-SKEL: No new joint pain, swelling, or erythema. PSY: No concerns regarding depression, anxiety or panic. INTEGUMENTARY: Pain of left hallux toenail Physical Exam: Constitutional: Pt is a well developed 72 year old female who is alert, oriented and cooperative Eyes: Following during examination. No redness or drainage. Respiratory: RR normal and nonlabored. Even breathing. No evidence of distress or shortness of breath. Psychology: Patient is engaged during conversation. Normal affect and mood. Does not appear depressed or anxious during encounter. Vascular: Dorsalis pedis and posterior tibial pulses faintly palpable as b/l Capillary Fill time < 5 seconds to digits 1-5 b/l Skin temperature warm to warm proximal to distal b/l Hair growth present to digits Neurological: intact light touch/epicritic sensation Dermatological: Nails 1-5 b/l appear thick, discolored, painful. Left hallux toenail is mostly painful Webspaces clean and dry 1-4 b/l. Skin appears well hydrated and supple. good color, texture, turgor. Callosities absent. .Open lesions absent. Wound: Not present. Musculoskeletal/Orthopaedic: Patient has pain to palpation of left hallux toenail AJ ROM is full with knee extended and flexed 1st MPJ is full when loaded and no pain or crepitus are noted with ROM. MTJ, STJ are full and free of pain and crepitus. +5/5 muscle strength dorsiflexion, plantarflexion, inversion, eversion b/l ASSESSMENT: (B35.1) Onychomycosis (primary encounter diagnosis) (M79.675) Pain in toe of left foot (M79.674) Pain in toe of right foot (R09.89) Diminished pulses in lower extremity PLAN: Patient was examined and informed of current findings Discussed painful toenails, primarily of left hallux. Discussed options for left hallux toenail not limited to topical cream, oral medication, laser vs removal. Patient interested in removal. Will check pvr prior to removal. Toenails 1-5 b/l were debrided in length and thickness f/u after pvr for possible nail removal. Victoria Thompson DPM CNOV Observed: 04/17/2018 Status: COMPLETED Source: [place] 2:40 PM [facility] REPOSITORY Office Visit (PODIWS) ANAMIKA LI ([id number]) 1945 F Date Time Provider Department 04/17/18 2:40 PM VICTORIA THOMPSON PODIWS During your visit today, we recorded the following information about you: Victoria Thompson DPM 04/17/2018 3:39 PM Signed ? Victoria Thompson DPM Department of Podiatry [facility] [address] [address] Dept: [phone] Dept 04/17/2018 Initial Podiatric Office Visit: HPI: Anamika Li is a 72 year old female. Patient presents with toenail deformity to L hallux. Patient states that she had L hallux ingrowing toenail 8-10 years ago and had nail procedure but despite nail procedure, continues to have pain. Due to pain and thickness, is unable to cut her toenail. Patient is not diabetic and she is not a smoker. PCP: Adeel Russo MD PAST MEDICAL HISTORY Diagnosis Date - Carpal tunnel syndrome - Depressive disorder, not elsewhere classified - Esophageal reflux - Macular degeneration (senile) of retina, unspecified - Myalgia and myositis, unspecified - Obesity, unspecified - Unspecified essential hypertension Current Outpatient Prescriptions: ALPRAZolam (XANAX) 0.5 mg tablet Take 0.5-1 tablets by mouth once daily as needed for Anxiety for up to 90 days. amitriptyline (ELAVIL) 25 mg tablet Take 1-2 tablets by mouth daily at bedtime. As directed Atenolol-Chlorthalidone 100-25 mg per tablet TAKE 1/2 TABLET ONE TIME DAILY fluticasone (FLONASE) 50 mcg/actuation nasal spray USE 2 SPRAYS IN EACH NOSTRIL ONE TIME DAILY omeprazole (PRILOSEC) 20 mg capsule TAKE 1 CAPSULE EVERY DAY potassium chloride ER (K-DUR, KLOR-CON) 10 mEq tablet TAKE 1 TABLET EVERY DAY fexofenadine (LETICIA ALLERGY) 180 mg tablet Take 1 tablet by mouth once daily. eszopiclone (LUNESTA) 3 mg tab Take 1 tablet by mouth at bedtime as needed. AT BEDTIME. montelukast (SINGULAIR) 10 mg tablet Take 1 tablet by mouth daily at bedtime. vit A,C,Z-Ewma-Zhxwjy 7,160-113-100 fzvh-je-huts ORAL Tab Take by mouth. As directed. Lutein 10 mg ORAL Tab Take by mouth. As directed. cholecalciferol(VITAMIN D 2,000 UNIT CAP) Take one(1) tablet daily. naproxen sodium(ALEVE 220 MG TAB) Take one(1) tablet twice daily. OMEGA 3 550 MG CAP Take one(1) tablet daily. OAT BRAN 500 MG TAB 2 tabs in am MULTIVITAMIN ORAL TAB Take one(1) tablet daily. CALCIUM + D 600 MG-200 UNIT ORAL TAB Take one(1) tablet two(2) times daily. TYLENOL EXTRA STRENGTH 500 MG ORAL TAB Take two(2) tablets every four(4) to six(6) hours as needed. No current facility-administered medications for this visit. ALLERGIES Allergen Reactions - Amoxicillin Rash - Asa [Salicylates] if not coated - Flagyl [Metronidazo* - Lisinopril - Penicillins Rash PAST SURGICAL HISTORY Procedure Laterality Date - PAST SURGICAL HISTORY OF wrist surgery right in [place] - PAST SURGICAL HISTORY OF wrist surgery left in [place] - PAST SURGICAL HISTORY OF fissurectomy FAMILY HISTORY Problem Relation Age of Onset - Diabetes Mother - Cancer Mother stomach - Macular Degen Mother - Cataract Mother - Heart Father cad - Hypertension Father - Glaucoma Other cousin and GM Social History Marital status: Single Spouse name: Years of education: Number of children: Social History Main Topics Smoking status: Never Smoker Smokeless tobacco: Never Used Alcohol use: No Drug use: No REVIEW OF SYSTEMS: CONSTITUTIONAL: No fevers, chills, nightsweats, unintended weight loss HEENT: Denies frequent or severe heaches, nasal congestion/sinus symptoms, problematic allergy problems. EYES: No diplopia or blurry vision. CARDIOVASCULAR: No chest pain, dyspnea, palpitations, orthopnea, PND, ankle edema. PULM: No dyspnea, unexplained cough. GI: No dysphagia/odynophagia, problematic reflux, constipation, diarrhea, changes in stool habits, hematochezia, melena. : No new urinary complaints, including dysuria, gross hematuria or pyuria. NEURO: No new balance problems, peripheral weakness/paresthesias or numbness of concern. MUSC-SKEL: No new joint pain, swelling, or erythema. PSY: No concerns regarding depression, anxiety or panic. INTEGUMENTARY: Pain of left hallux toenail Physical Exam: Constitutional: Pt is a well developed 72 year old female who is alert, oriented and cooperative Eyes: Following during examination. No redness or drainage. Respiratory: RR normal and nonlabored. Even breathing. No evidence of distress or shortness of breath. Psychology: Patient is engaged during conversation. Normal affect and mood. Does not appear depressed or anxious during encounter. Vascular: Dorsalis pedis and posterior tibial pulses faintly palpable as b/l Capillary Fill time < 5 seconds to digits 1-5 b/l Skin temperature warm to warm proximal to distal b/l Hair growth present to digits Neurological: intact light touch/epicritic sensation Dermatological: Nails 1-5 b/l appear thick, discolored, painful. Left hallux toenail is mostly painful Webspaces clean and dry 1-4 b/l. Skin appears well hydrated and supple. good color, texture, turgor. Callosities absent. .Open lesions absent. Wound: Not present. Musculoskeletal/Orthopaedic: Patient has pain to palpation of left hallux toenail AJ ROM is full with knee extended and flexed 1st MPJ is full when loaded and no pain or crepitus are noted with ROM. MTJ, STJ are full and free of pain and crepitus. +5/5 muscle strength dorsiflexion, plantarflexion, inversion, eversion b/l ASSESSMENT: (B35.1) Onychomycosis (primary encounter diagnosis) (M79.675) Pain in toe of left foot (M79.674) Pain in toe of right foot (R09.89) Diminished pulses in lower extremity PLAN: Patient was examined and informed of current findings Discussed painful toenails, primarily of left hallux. Discussed options for left hallux toenail not limited to topical cream, oral medication, laser vs removal. Patient interested in removal. Will check pvr prior to removal. Toenails 1-5 b/l were debrided in length and thickness f/u after pvr for possible nail removal. Victoria Thompson DPM Referring Provider: SELF [200] Allergies As of Date: 04/17/2018 Noted Allergy Reaction AMOXICILLIN 06/02/2005 2 - Rash ASA (SALICYLATES) 06/02/2005 Comments: if not coated FLAGYL (METRONIDAZOLE HCL) 06/02/2005 LISINOPRIL 06/02/2005 [place] 06/02/2005 2 - Rash Date Reviewed: 04/17/2018 Reviewed by: Katie Ramirez Ma - Fully Assessed Reason for Visit: Ingrown Nail [765] Primary Visit Diagnosis:Onychomycosis [B35.1] Other Visit Diagnoses:Pain in toe of left foot [M79.675] Pain in toe of right foot [M79.674] Diminished pulses in lower extremity [R09.89] Order(s):[facility] [[id number]] Order #: [id number] FUTURE Prescriptions as of 04/17/2018 Sig: ALPRAZOLAM 0.5 MG TABLET Take 0.5-1 tablets by mouth o* AMITRIPTYLINE 25 MG TABLET Take 1-2 tablets by mouth puneet* ATENOLOL 100 MG-CHLORTHALIDON* TAKE 1/2 TABLET ONE TIME DAILY FLUTICASONE 50 MCG/ACTUATION * USE 2 SPRAYS IN EACH NOSTRIL * OMEPRAZOLE 20 MG CAPSULE,MILADYS* TAKE 1 CAPSULE EVERY DAY POTASSIUM CHLORIDE ER 10 MEQ * TAKE 1 TABLET EVERY DAY FEXOFENADINE 180 MG TABLET Take 1 tablet by mouth once d* ESZOPICLONE 3 MG TABLET Take 1 tablet by mouth at bed* MONTELUKAST 10 MG TABLET Take 1 tablet by mouth daily * * VITAMINS A,C,H-MXGX-LQOHHI 7* Take by mouth. As directed. * LUTEIN 10 MG TABLET Take by mouth. As directed. * VITAMIN D 2,000 UNIT CAPSULE Take one(1) tablet daily. * ALEVE 220 MG TABLET Take one(1) tablet twice marsha* * FLAXSEED OIL 1000 MG CAPSULE Take one(1) tablet daily. * OAT BRAN 500 MG TABLET 2 tabs in am * MULTIVITAMIN TABLET Take one(1) tablet daily. * CALCIUM + D 600 MG (1,500 MG)* Take one(1) tablet two(2) dakotah* * TYLENOL EXTRA STRENGTH 500 MG* Take two(2) tablets every fou* Problem List As Of Date 04/17/2018 Noted Resolved Fibromyalgia [M79.7] INVALID FOR* More... PERSISTENT INSOMNIA [G47.00] INVALID FOR* More... Essential hypertension [I10] INVALID FOR* More... ESOPHAGEAL REFLUX [K21.9] INVALID FOR* More... Depressed [F32.9] More... Macular degeneration (senile) of retina [H35.30] CARPAL TUNNEL SYNDROME [G56.00] Obesity [E66.9] Anxiety state [F41.1] INVALID FOR* More... 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 Overall doing okay. Still struggles with weight loss efforts. Also, issues with insurance no longer covering for cost of Lunesta. Has needed something for sleep chronically. Reviewed formulary med on her letter. Blood pressure controlled without adverse effects from medications. PAST MEDICAL HISTORY Diagnosis Date - Carpal tunnel syndrome - Depressive disorder, not elsewhere classified - Esophageal reflux - Macular degeneration (senile) of retina, unspecified - Myalgia and myositis, unspecified - Obesity, unspecified - Unspecified essential hypertension Current Outpatient Prescriptions: ALPRAZolam (XANAX) 0.5 mg tablet Take 0.5-1 tablets by mouth once daily as needed for Anxiety for up to 90 days. amitriptyline (ELAVIL) 25 mg tablet Take 1-2 tablets by mouth daily at bedtime. As directed Atenolol-Chlorthalidone 100-25 mg per tablet TAKE 1/2 TABLET ONE TIME DAILY fluticasone (FLONASE) 50 mcg/actuation nasal spray USE 2 SPRAYS IN EACH NOSTRIL ONE TIME DAILY omeprazole (PRILOSEC) 20 mg capsule TAKE 1 CAPSULE EVERY DAY potassium chloride ER (K-DUR, KLOR-CON) 10 mEq tablet TAKE 1 TABLET EVERY DAY fexofenadine (LETICIA ALLERGY) 180 mg tablet Take 1 tablet by mouth once daily. eszopiclone (LUNESTA) 3 mg tab Take 1 tablet by mouth at bedtime as needed. AT BEDTIME. montelukast (SINGULAIR) 10 mg tablet Take 1 tablet by mouth daily at bedtime. vit A,C,T-Ugzj-Osiekz 7,160-113-100 oylz-zs-gdln ORAL Tab Take by mouth. As directed. Lutein 10 mg ORAL Tab Take by mouth. As directed. cholecalciferol(VITAMIN D 2,000 UNIT CAP) Take one(1) tablet daily. naproxen sodium(ALEVE 220 MG TAB) Take one(1) tablet twice daily. OMEGA 3 550 MG CAP Take one(1) tablet daily. OAT BRAN 500 MG TAB 2 tabs in am MULTIVITAMIN ORAL TAB Take one(1) tablet daily. CALCIUM + D 600 MG-200 UNIT ORAL TAB Take one(1) tablet two(2) times daily. TYLENOL EXTRA STRENGTH 500 MG ORAL TAB Take two(2) tablets every four(4) to six(6) hours as needed. No current facility-administered medications for this visit. OBJECTIVE: BP 138/80 Pulse 68 Resp 16 Wt 92.1 kg (203 lb) BMI 38.36 kg/m? Patient is alert, oriented times 3, no apparent distress, affect is bright, reactive. Decked out in [employer] clothes and all. Last 5 Encounter BP Readings: Date: BP: 02/04/2018 138/80 07/28/2017 132/78 02/10/2017 124/78 01/23/2017 122/84 10/23/2016 137/77 Last 5 Encounter Wt Readings: Date: Wt: 02/04/2018 92.1 kg (203 lb) 07/28/2017 88.9 kg (196 lb) 02/10/2017 101.2 kg (223 lb) 01/23/2017 101.2 kg (223 lb) 10/23/2016 98.4 kg (217 lb) Heart: Regular rate, rhythm, no murmurs, gallops, rubs. Lungs: Clear to auscultation, bilaterally, breathing non labored. Ext: No cyanosis, clubbing, or edema. Component Latest Ref Rng AND Units 07/06/2014 02/01/2018 Triglyceride <150 mg/dL 161 (H) 167 (H) Cholesterol, Total <200 mg/dL 204 (H) 192 HDL Cholesterol >39 mg/dL 51 (L) 49 VLDL Cholesterol <30 mg/dL 32 33 (H) LDL Cholesterol <100 mg/dL 121 110 (H) Fasting Time hrs 12 14 TC:HDL Ratio <5.10 4.00 3.92 LDL:HDL Ratio <2.54 2.37 2.24 Non HDL Cholesterol <130 mg/dL 153 143 (H) Component Latest Ref Rng AND Units 01/27/2016 01/17/2017 07/23/2017 02/01/2018 Glucose 74 - 99 mg/dL 95 96 89 94 BUN 7 - 21 mg/dL 14 24 (H) 17 17 Creatinine 0.58 - 0.96 mg/dL 0.63 (L) 0.63 0.65 0.66 Sodium 136 - 144 mmol/L 137 138 139 138 Potassium 3.7 - 5.1 mmol/L 3.7 3.9 3.7 3.5 (L) Chloride 97 - 105 mmol/L 97 (L) 98 98 98 CO2 22 - 30 mmol/L 29 26 28 28 Anion Gap 9 - 18 mmol/L 11 14 13 12 Calcium 8.5 - 10.2 mg/dL 9.2 9.0 9.2 9.3 eGFR- >60 >60 >60 >60 eGFR-All Other Races . >60 >60 >60 >60 WBC 3.70 - 11.00 k/uL 6.56 RBC 3.90 - 5.20 m/uL 4.60 Hemoglobin 11.5 - 15.5 g/dL 14.0 Hematocrit 36.0 - 46.0 % 43.2 MCV 80.0 - 100.0 fL 93.9 MCH 26.0 - 34.0 pG 30.4 MCHC 30.5 - 36.0 g/dL 32.4 RDW-CV 11.5 - 15.0 % 12.7 Platelet Count 150 - 400 k/uL 229 MPV 9.0 - 12.7 fL 11.0 Cholesterol, Total <200 mg/dL 192 Triglyceride <150 mg/dL 167 (H) HDL Cholesterol >39 mg/dL 49 LDL Cholesterol <100 mg/dL 110 (H) Non HDL Cholesterol <130 mg/dL 143 (H) Fasting Time hrs 14 VLDL Cholesterol <30 mg/dL 33 (H) TC:HDL Ratio <5.10 3.92 LDL:HDL Ratio <2.54 2.24 Hemoglobin A1C 4.3 - 5.6 % 5.7 (H) 5.8 (H) 5.5 Estimated Average Glucose mg/dL 117 120 111 Magnesium 1.7 - 2.3 mg/dL 2.1 Occult Blood, Stool Negative Negative Hep C Antibody IA Negative Negative ASSESSMENT AND PLAN: Encounter Diagnosis ICD-10-CM 1. Anxiety state F41.1 ALPRAZolam (XANAX) 0.5 mg tablet 2. Psychophysiological insomnia F51.04 amitriptyline (ELAVIL) 25 mg tablet 3. Fibromyalgia M79.7 amitriptyline (ELAVIL) 25 mg tablet 4. 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 Encounter for screening mammogram for breast cancer Z12.31 [facility] SCREENING 6. Asymptomatic postmenopausal status Z78.0 Additional Medical Conditions Last edited 02/04/18 12:14 EDT by Adeel Russo MD Above issues addressed with patient. Patient involved in shared decision making for management of her medical issues. History and medications reviewed. Epic updated as needed Refills taken care of and meds adjusted as indicated after reviewed history, exam and labs. Health Maintenance reviewed. Updated record and/or ordered tests as recorded. Encouraged on efforts at healthy diet and regular exercise and adequate sleep. Needs to keep working on diet and exercise with lifestyle changes for effective weight loss as well as control of lipids, sedate and fasting glucos.. Continue present med except need to change med for insomnia. Since not sleeping well with current meds, would switch Elavil in for Doxepin, and stop the Lunesta since too expensive to pay for out of pocket. Adjust dose as tolerated as needed. Further evaluation and treatment as indicated. The majority of the visit was spent counseling and/or coordinating care for the patient. Mhcw-xv-ldjs time was at least 25 minutes. Adeel Russo MD CNOV Observed: 02/04/2018 Status: COMPLETED Source: [place] 11:00 AM [facility] REPOSITORY Office Visit (INTMWS) ANAMIKA LI ([id number]) 1945 F Date Time Provider Department 02/04/18 11:00 AM ADEEL RUSSO INTMWS During your visit today, we recorded the following information about you: Pulse Respiration Blood pressure Weight 68/minute 16/minute 138/80 92.1 kg Adeel Russo 02/14/2018 10:16 PM Signed Patient presents with: Recheck SUBJECTIVE: Anamika Li is a 72 year old year old lady here today for 6 month follow up appointment for review of medical conditions. Overall doing okay. Still struggles with weight loss efforts. Also, issues with insurance no longer covering for cost of Lunesta. Has needed something for sleep chronically. Reviewed formulary med on her letter. Blood pressure controlled without adverse effects from medications. PAST MEDICAL HISTORY Diagnosis Date - Carpal tunnel syndrome - Depressive disorder, not elsewhere classified - Esophageal reflux - Macular degeneration (senile) of retina, unspecified - Myalgia and myositis, unspecified - Obesity, unspecified - Unspecified essential hypertension Current Outpatient Prescriptions: ALPRAZolam (XANAX) 0.5 mg tablet Take 0.5-1 tablets by mouth once daily as needed for Anxiety for up to 90 days. amitriptyline (ELAVIL) 25 mg tablet Take 1-2 tablets by mouth daily at bedtime. As directed Atenolol-Chlorthalidone 100-25 mg per tablet TAKE 1/2 TABLET ONE TIME DAILY fluticasone (FLONASE) 50 mcg/actuation nasal spray USE 2 SPRAYS IN EACH NOSTRIL ONE TIME DAILY omeprazole (PRILOSEC) 20 mg capsule TAKE 1 CAPSULE EVERY DAY potassium chloride ER (K-DUR, KLOR-CON) 10 mEq tablet TAKE 1 TABLET EVERY DAY fexofenadine (LETICIA ALLERGY) 180 mg tablet Take 1 tablet by mouth once daily. eszopiclone (LUNESTA) 3 mg tab Take 1 tablet by mouth at bedtime as needed. AT BEDTIME. montelukast (SINGULAIR) 10 mg tablet Take 1 tablet by mouth daily at bedtime. vit A,C,P-Miyr-Tsjcdt 7,160-113-100 lgju-wv-iqmd ORAL Tab Take by mouth. As directed. Lutein 10 mg ORAL Tab Take by mouth. As directed. cholecalciferol(VITAMIN D 2,000 UNIT CAP) Take one(1) tablet daily. naproxen sodium(ALEVE 220 MG TAB) Take one(1) tablet twice daily. OMEGA 3 550 MG CAP Take one(1) tablet daily. OAT BRAN 500 MG TAB 2 tabs in am MULTIVITAMIN ORAL TAB Take one(1) tablet daily. CALCIUM + D 600 MG-200 UNIT ORAL TAB Take one(1) tablet two(2) times daily. TYLENOL EXTRA STRENGTH 500 MG ORAL TAB Take two(2) tablets every four(4) to six(6) hours as needed. No current facility-administered medications for this visit. OBJECTIVE: BP 138/80 Pulse 68 Resp 16 Wt 92.1 kg (203 lb) BMI 38.36 kg/m? Patient is alert, oriented times 3, no apparent distress, affect is bright, reactive. Decked out in [employer] clothes and all. Last 5 Encounter BP Readings: Date: BP: 02/04/2018 138/80 07/28/2017 132/78 02/10/2017 124/78 01/23/2017 122/84 10/23/2016 137/77 Last 5 Encounter Wt Readings: Date: Wt: 02/04/2018 92.1 kg (203 lb) 07/28/2017 88.9 kg (196 lb) 02/10/2017 101.2 kg (223 lb) 01/23/2017 101.2 kg (223 lb) 10/23/2016 98.4 kg (217 lb) Heart: Regular rate, rhythm, no murmurs, gallops, rubs. Lungs: Clear to auscultation, bilaterally, breathing non labored. Ext: No cyanosis, clubbing, or edema. Component Latest Ref Rng AND Units 07/06/2014 02/01/2018 Triglyceride <150 mg/dL 161 (H) 167 (H) Cholesterol, Total <200 mg/dL 204 (H) 192 HDL Cholesterol >39 mg/dL 51 (L) 49 VLDL Cholesterol <30 mg/dL 32 33 (H) LDL Cholesterol <100 mg/dL 121 110 (H) Fasting Time hrs 12 14 TC:HDL Ratio <5.10 4.00 3.92 LDL:HDL Ratio <2.54 2.37 2.24 Non HDL Cholesterol <130 mg/dL 153 143 (H) Component Latest Ref Rng AND Units 01/27/2016 01/17/2017 07/23/2017 02/01/2018 Glucose 74 - 99 mg/dL 95 96 89 94 BUN 7 - 21 mg/dL 14 24 (H) 17 17 Creatinine 0.58 - 0.96 mg/dL 0.63 (L) 0.63 0.65 0.66 Sodium 136 - 144 mmol/L 137 138 139 138 Potassium 3.7 - 5.1 mmol/L 3.7 3.9 3.7 3.5 (L) Chloride 97 - 105 mmol/L 97 (L) 98 98 98 CO2 22 - 30 mmol/L 29 26 28 28 Anion Gap 9 - 18 mmol/L 11 14 13 12 Calcium 8.5 - 10.2 mg/dL 9.2 9.0 9.2 9.3 eGFR- >60 >60 >60 >60 eGFR-All Other Races . >60 >60 >60 >60 WBC 3.70 - 11.00 k/uL 6.56 RBC 3.90 - 5.20 m/uL 4.60 Hemoglobin 11.5 - 15.5 g/dL 14.0 Hematocrit 36.0 - 46.0 % 43.2 MCV 80.0 - 100.0 fL 93.9 MCH 26.0 - 34.0 pG 30.4 MCHC 30.5 - 36.0 g/dL 32.4 RDW-CV 11.5 - 15.0 % 12.7 Platelet Count 150 - 400 k/uL 229 MPV 9.0 - 12.7 fL 11.0 Cholesterol, Total <200 mg/dL 192 Triglyceride <150 mg/dL 167 (H) HDL Cholesterol >39 mg/dL 49 LDL Cholesterol <100 mg/dL 110 (H) Non HDL Cholesterol <130 mg/dL 143 (H) Fasting Time hrs 14 VLDL Cholesterol <30 mg/dL 33 (H) TC:HDL Ratio <5.10 3.92 LDL:HDL Ratio <2.54 2.24 Hemoglobin A1C 4.3 - 5.6 % 5.7 (H) 5.8 (H) 5.5 Estimated Average Glucose mg/dL 117 120 111 Magnesium 1.7 - 2.3 mg/dL 2.1 Occult Blood, Stool Negative Negative Hep C Antibody IA Negative Negative ASSESSMENT AND PLAN: Encounter Diagnosis ICD-10-CM 1. Anxiety state F41.1 ALPRAZolam (XANAX) 0.5 mg tablet 2. Psychophysiological insomnia F51.04 amitriptyline (ELAVIL) 25 mg tablet 3. Fibromyalgia M79.7 amitriptyline (ELAVIL) 25 mg tablet 4. 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 Encounter for screening mammogram for breast cancer Z12.31 [facility] SCREENING 6. Asymptomatic postmenopausal status Z78.0 Additional Medical Conditions Last edited 02/04/18 12:14 EDT by Adeel Russo MD Above issues addressed with patient. Patient involved in shared decision making for management of her medical issues. History and medications reviewed. Epic updated as needed Refills taken care of and meds adjusted as indicated after reviewed history, exam and labs. Health Maintenance reviewed. Updated record and/or ordered tests as recorded. Encouraged on efforts at healthy diet and regular exercise and adequate sleep. Needs to keep working on diet and exercise with lifestyle changes for effective weight loss as well as control of lipids, sedate and fasting glucos.. Continue present med except need to change med for insomnia. Since not sleeping well with current meds, would switch Elavil in for Doxepin, and stop the Lunesta since too expensive to pay for out of pocket. Adjust dose as tolerated as needed. Further evaluation and treatment as indicated. The majority of the visit was spent counseling and/or coordinating care for the patient. Wtbi-td-ukwa time was at least 25 minutes. MD Rafaela Alvarado Liza D 02/04/2018 12:14 PM Signed BONE MINERAL DENSITY PATIENT INSTRUCTIONS Bone mineral density testing measures the amount of calcium in certain parts of your bones. This information determines how strong your bones are. The test is used to detect osteoporosis, a disease in which the bone's mineral content and density are low, increasing a person's risk of fractures. The lumbar spine (lower back) and the hip are the skeletal sites usually examined. For the test, remember that: 1. You cannot take this test if you are . 2. Eat a normal diet on the day of the test. 3. Take your medications as you normally would. 4. DO NOT take calcium supplements (such as Tums) for 24 hours before the test. 5. On the day of the test, leave valuables (jewelry or credit cards) at home. 6. The test should be performed prior to oral, rectal or IV contrast studies, or at least 7 days after any of these studies. For the test, you may be asked to wear a hospital gown. You will lie on your back, on a padded table, in a comfortable position. Generally, you can resume your usual activities immediately. Referring Provider: ADEEL RUSSO [[id number]] Allergies As of Date: 02/04/2018 Noted Allergy Reaction AMOXICILLIN 06/02/2005 2 - Rash ASA (SALICYLATES) 06/02/2005 Comments: if not coated FLAGYL (METRONIDAZOLE HCL) 06/02/2005 LISINOPRIL 06/02/2005 PENICILLINS 06/02/2005 2 - Rash Date Reviewed: 02/04/2018 Reviewed by: Jeff Edgar Cma - Fully Assessed Reason for Visit: Recheck [92] Radiology [facility] [[id number]] [facility] For Visit History Recorded Primary Visit Diagnosis:Anxiety state [F41.1] Other Visit Diagnoses:Psychophysiological insomnia [F51.04] Fibromyalgia [M79.7] Persistent disorder of initiating or maintaining sleep [G47.00] Encounter for screening mammogram for breast cancer [Z12.31] Asymptomatic postmenopausal status [Z78.0] Hypokalemia [E87.6] Encounter for long-term current use of medication [Z79.899] IFG (impaired fasting glucose) [R73.01] Essential hypertension [I10] Reactive depression [F32.9] Order(s):ALPRAZolam (XANAX) 0.5 mg tabletTake 0.5-1 tablets by mouth once daily as needed for Anxiety for up to 90 days.Disp: 30 tabletRfl: 1 amitriptyline (ELAVIL) 25 mg tabletTake 1-2 tablets by mouth daily at bedtime. As directedDisp: 90 tabletRfl: 1 [facility] SCREENING [[id number]] Order #: [id number] FUTURE DXA-AXIAL SKELETON [[id number]] Order #: [id number] FUTURE COMP METABOLIC PANEL [SQCMP] Order #: [id number] FUTURE HGB A1C [LHVPE3T] Order #: [id number] FUTURE Prescriptions as of 02/04/2018 Sig: ALPRAZOLAM 0.5 MG TABLET Take 0.5-1 tablets by mouth o* AMITRIPTYLINE 25 MG TABLET Take 1-2 tablets by mouth puneet* ATENOLOL 100 MG-CHLORTHALIDON* TAKE 1/2 TABLET ONE TIME DAILY FLUTICASONE 50 MCG/ACTUATION * USE 2 SPRAYS IN EACH NOSTRIL * OMEPRAZOLE 20 MG CAPSULE,MILADYS* TAKE 1 CAPSULE EVERY DAY POTASSIUM CHLORIDE ER 10 MEQ * TAKE 1 TABLET EVERY DAY FEXOFENADINE 180 MG TABLET Take 1 tablet by mouth once d* ESZOPICLONE 3 MG TABLET Take 1 tablet by mouth at bed* MONTELUKAST 10 MG TABLET Take 1 tablet by mouth daily * * VITAMINS A,C,N-EUNX-ANWNTP 7* Take by mouth. As directed. * LUTEIN 10 MG TABLET Take by mouth. As directed. * VITAMIN D 2,000 UNIT CAPSULE Take one(1) tablet daily. * ALEVE 220 MG TABLET Take one(1) tablet twice marsha* * FLAXSEED OIL 1000 MG CAPSULE Take one(1) tablet daily. * OAT BRAN 500 MG TABLET 2 tabs in am * MULTIVITAMIN TABLET Take one(1) tablet daily. * CALCIUM + D 600 MG (1,500 MG)* Take one(1) tablet two(2) dakotah* * TYLENOL EXTRA STRENGTH 500 MG* Take two(2) tablets every fou* Medication notes this encounter ESZOPICLONE 3 MG TABLET >> Adeel Russo 02/04/2018 11:59 AM >> ADEEL RUSSO MD SunFeb 04, 2018 11:59 AM Already taking half pill. No longer going to be on formulary so trying to find replacement med. MONTELUKAST 10 MG TABLET >> Adeel Russo 02/04/2018 12:01 PM >> ADEEL RUSSO MD SunFeb 04, 2018 12:01 PM has not been taking; has not needed; Leticia effective Problem List As Of Date 02/04/2018 Noted Resolved Fibromyalgia [M79.7] INVALID FOR* More... PERSISTENT INSOMNIA [G47.00] INVALID FOR* More... Essential hypertension [I10] INVALID FOR* More... ESOPHAGEAL REFLUX [K21.9] INVALID FOR* More... DEPRESSIVE DISORDER NEC [F32.9] More... Macular degeneration (senile) of retina [H35.30] CARPAL TUNNEL SYNDROME [G56.00] Obesity [E66.9] Anxiety state [F41.1] INVALID FOR* More... 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 This information determines how strong your bones are. The test is used to detect osteoporosis, a disease in which the bone's mineral content and density are low, increasing a person's risk of fractures. The lumbar spine (lower back) and the hip are the skeletal sites usually examined. For the test, remember that: 1. You cannot take this test if you are . 2. Eat a normal diet on the day of the test. 3. Take your medications as you normally would. 4. DO NOT take calcium supplements (such as Tums) for 24 hours before the test. 5. On the day of the test, leave valuables (jewelry or credit cards) at home. 6. The test should be performed prior to oral, rectal or IV contrast studies, or at least 7 days after any of these studies. For the test, you may be asked to wear a hospital gown. You will lie on your back, on a padded table, in a comfortable position. Generally, you can resume your usual activities immediately. Prescriptions ordered this encounter Disp Refills Start End ALPRAZOLAM 0.5 MG TABLET 30 t* 1 02/04/2018 05/05/2018 Class: Print RX Route: ORAL Sig: Take 0.5-1 tablets by mouth once daily as needed for Anxiety for up to 90 days. AMITRIPTYLINE 25 MG TABLET 90 t* 1 02/04/2018 Cmt: Patient aware that this would replace Doxepin Route: ORAL Sig: Take 1-2 tablets by mouth daily at bedtime. As directed Medications Discontinued During This Encounter doxepin capsule 25 mg 90 c* 3 12/28/2017 02/04/2018 Sig: TAKE 1 CAPSULE DAILY AT BEDTIME. Disc: Changing Therapy/Dosage Form methylPREDNISolone (MEDROL, SOL,) 4 * 1 Pa* 0 10/10/2016 02/04/2018 Sig: As Instructed per package Disc: Reason for discontinue is not on file. ALPRAZolam (XANAX) 0.5 mg tablet 30 t* 1 03/29/2016 02/04/2018 Class: Print RX Route: ORAL Sig: Take 0.5-1 tablets by mouth once daily as needed for Anxiety. Disc: Reason for discontinue is not on file. Disposition: Return for 6 months follow up, With labs prior. Follow-up and Disposition History Recorded Encounter Status:Closed by ADEEL RUSSO MD on 02/14/18 BASIC METABOLIC PANL Collected: 02/01/2018 Status: F Source: [place] 11:20 AM [facility] REPOSITORY TYPE CODE TESTS RESULT OUT OF REFERENCE UNITS RANGE LAB GLU 74-99 mg/dL Glucose 94 Result Comment: The [place] [employer] (ADA) provides guidance for cutoff values for fasting glucose and random glucose. The ADA defines fasting as no caloric intake for at least 8 hours. Fas ting plasma glucose results between 100 to 125 mg/dL indicate increased risk for diabetes (prediabetes). Fasting plasma glucose results greater than or equal to 126 mg/dL meet the criteria for diagnosis of diabetes. In the absence of unequivocal hyperglycemia, results should be confirmed by repeat testing. In a patient with classic symptoms of hyperglycemia or hyperglycemic crisis, random plasma glucose results greater than or equal to 200 mg/dL meet the criteria for diagnosis of diabetes. Reference: Standards of Medical Care in Diabetes 2016, [place] [employer]. Diabetes Care. 2016.39(Suppl 1). LAB BUN 7-21 mg/dL BUN 17 LAB CRET 0.58-0.96 mg/dL Creatinine 0.66 LAB NA 136-144 mmol/L Sodium 138 LAB K 3.7-5.1 mmol/L Potassium Low 3.5 LAB CL 97-105 mmol/L Chloride 98 LAB CO2 22-30 mmol/L CO2 28 LAB AGAP 9-18 mmol/L Anion Gap 12 LAB CA 8.5-10.2 mg/dL Calcium, Total 9.3 LAB GFRAA eGFR- Amer. >60 LAB GFRNAA . eGFR-All Other Races >60 Result Comment: eGFR (Estimated GFR) Units of measure: mL/min/1.73 meters squared eGFR is derived from the reexpressed MDRD Study equation using the following parameters: serum creatinine, age, gender and race. The creatinine assay has been calibrated to be traceable to IDMS. An eGFR <60 mL/min/1.73m2 for >3 months is consistent with chronic kidney disease. Refer to KDOQI guidelines for clinical interpretation. In patients with unstable renal function, e.g. those with acute kidney injury, the eGFR may not accurately reflect actual GFR. Performed By: #### BMP, LIPB, HBA1C #### [facility] [address] [place], [place] [address] LIPID PANEL, BASIC Collected: 02/01/2018 Status: F Source: [place] 11:20 AM [facility] REPOSITORY TYPE CODE TESTS RESULT OUT OF REFERENCE UNITS RANGE LAB CHOL <200 mg/dL Cholesterol 192 Result Comment: <200 mg/dL, Desirable 200-239 mg/dL, Borderline high >239 mg/dL, High LAB TRIGLY <150 mg/dL Triglyceride High 167 Result Comment: <150 mg/dL, Normal 150-199 mg/dL, Borderline high 200-499 mg/dL, High >499 mg/dL, Very high LAB HDL >39 mg/dL HDL-Cholesterol 49 Result Comment: 40-59 mg/dL, Acceptable >59 mg/dL, High: Negative risk factor for coronary heart disease <40 mg/dL, Low: Positive risk factor for coronary heart disease LAB LDL <100 mg/dL LDL-Cholesterol High 110 Result Comment: <100 mg/dL, Optimal 100-129 mg/dL, Near optimal/above optimal 130-159 mg/dL, Borderline high 160-189 mg/dL, High >189 mg/dL, Very high Secondary prevention optimal LDL Cholesterol levels are recommended to be < 70 mg/dL LAB NONHDL <130 mg/dL Non HDL High Cholesterol 143 Result Comment: <130 mg/dL, Optimal 130-159 mg/dL, Near optimal/above optimal 160-189 mg/dL, Borderline high 190-219 mg/dL, High >219 mg/dL, Very high Secondary prevention optimal non HDL Cholesterol levels are recommended to be < 100 mg/dL LAB FT hrs Fasting Time 14 LAB VLDL <30 mg/dL High VLDL Cholesterol 33 LAB TCHDL <5.10 TC:HDL Ratio 3.92 LAB LDLHDL <2.54 LDL:HDL Ratio 2.24 Result Comment: Reference: 1. National Cholesterol Education Program ATP III Guideline At-A-Glance Quick Desk Reference: National Heart, Lung, and Blood [place]. National Institutes of Health. 2001: NIH Publication No. 01-3305. 2. An International Atherosclerosis Society position paper: global recommendations for the management of dyslipidemia: executive summary, Atherosclerosis. 2014: 232(2):410-413. Performed By: #### BMP, LIPB, HBA1C #### [facility] [employer] [address] [place], [place] [address] HEMOGLOBIN A1C Collected: 02/01/2018 Status: F Source: [place] 11:20 AM [facility] REPOSITORY TYPE CODE TESTS RESULT OUT OF REFERENCE UNITS RANGE LAB HGBA1C 4.3-5.6 % Hemoglobin A1c 5.5 LAB HBA0 mg/dL Est. Average Glucose 111 Result Comment: eAG: (Estimated average glucose) is a calculated value from HgbA1c and is territory service representative of the average blood glucose level in the last 2-3 month period. Performed By: #### BMP, LIPB, HBA1C #### [facility] [address] [place], [place] [address] OBSOLETE Observed: 10/19/2017 Status: COMPLETED Source: [place] 12:00 AM [facility] REPOSITORY Refill (INTMWS) JAANAMIKA L ([id number]) 1945 F Date Time Provider Department 10/19/17 ADEEL RUSSO During your visit today, we recorded the following information about you: Tammie Rogel, RN, RN 10/22/2017 10:03 AM Signed Pharmacy initiated request Last PCP visit 07/28/17, next 02/04/18 Last lab 07/23/17 K 3.7 Last filled 12/2016 Adeel Russo MD 10/22/2017 1:09 PM Signed Okayed Allergies As of Date: 10/19/2017 Noted Allergy Reaction AMOXICILLIN 06/02/2005 2 - Rash ASA (SALICYLATES) 06/02/2005 Comments: if not coated FLAGYL (METRONIDAZOLE HCL) 06/02/2005 LISINOPRIL 06/02/2005 PENICILLINS 06/02/2005 2 - Rash Date Reviewed: 07/28/2017 Reviewed by: Jeff Edgar Cma - Fully Assessed Reason for Visit: Refill Request [94] Order(s):potassium chloride ER (K-DUR, KLOR-CON) 10 mEq tabletTAKE 1 TABLET EVERY DAYDisp: 90 tabletRfl: 3 Prescriptions as of 10/19/2017 Sig: POTASSIUM CHLORIDE ER 10 MEQ * TAKE 1 TABLET EVERY DAY FEXOFENADINE 180 MG TABLET Take 1 tablet by mouth once d* ESZOPICLONE 3 MG TABLET Take 1 tablet by mouth at bed* ATENOLOL 100 MG-CHLORTHALIDON* Take 0.5 tablets by mouth onc* MONTELUKAST 10 MG TABLET Take 1 tablet by mouth daily * OMEPRAZOLE 20 MG CAPSULE,MILADYS* TAKE 1 CAPSULE ONE TIME DAILY FLUTICASONE 50 MCG/ACTUATION * USE 2 SPRAYS IN EACH NOSTRIL * DOXEPIN 25 MG CAPSULE Take 1 capsule by mouth daily* METHYLPREDNISOLONE 4 MG TABLE* As Instructed per package ALPRAZOLAM 0.5 MG TABLET Take 0.5-1 tablets by mouth o* * VITAMINS A,C,I-KZAD-NMCHEC 7* Take by mouth. As directed. * LUTEIN 10 MG TABLET Take by mouth. As directed. * VITAMIN D 2,000 UNIT CAPSULE Take one(1) tablet daily. * ALEVE 220 MG TABLET Take one(1) tablet twice marsha* * FLAXSEED OIL 1000 MG CAPSULE Take one(1) tablet daily. * OAT BRAN 500 MG TABLET 2 tabs in am * MULTIVITAMIN TABLET Take one(1) tablet daily. * CALCIUM + D 600 MG (1,500 MG)* Take one(1) tablet two(2) [place]akot[place]* * TYLENOL EXTRA STRENGTH 500 MG* Take two(2) tablets every fou* Problem List As Of Date 10/19/2017 Noted Resolved Fibromyalgia [M79.7] INVALID FOR* More... PERSISTENT INSOMNIA [G47.00] INVALID FOR* More... Essential hypertension [I10] INVALID FOR* More... ESOPHAGEAL REFLUX [K21.9] INVALID FOR* More... DEPRESSIVE DISORDER NEC [F32.9] More... Macular degeneration (senile) of retina [H35.30] CARPAL TUNNEL SYNDROME [G56.00] Obesity [E66.9] ANXIETY STATE NOS [F41.1] INVALID FOR* More... OSTEOARTHROS NOS-L/LEG [M17.10] INVALID FOR* Impaired Fasting Glucose [R73.01] INVALID FOR* Xerosis cutis [L85.3] INVALID FOR* Cracked skin [R23.4] INVALID FOR* Neurofibroma of back [D36.17] INVALID FOR* Intradermal nevus [D23.9] INVALID FOR* Acrochordon [L91.8] INVALID FOR* Prescriptions ordered this encounter Disp Refills Start End POTASSIUM CHLORIDE ER 10 MEQ TABLET,* 90 t* 3 10/22/2017 Sig: TAKE 1 TABLET EVERY DAY Medications Discontinued During This Encounter potassium chloride ER (K-ZEINAB KLOR-C* 90 t* 3 12/21/2016 10/22/2017 Sig: TAKE 1 TABLET EVERY DAY Disc: Reason for discontinue is not on file. Encounter Status:Closed by JEFF EDGAR CMA on 10/22/17 ALLERGIES ALLERGIES DATE TYPE / CODE NAME / CODE REACTION SEVERITY SOURCE 09/12/2018 Drug Penicillins/[id number] Rash Unknown [place] Allergy/416 476(RXNORM) [facility] 833476([facility]) Repository 09/12/2018 Drug lisinopril/[id number] Rash Unknown [place] Allergy/416 58(RXNORM) [facility] 110839([facility]) Repository 09/12/2018 Drug ampicillin/[id number] Rash Unknown [place] Allergy/416 92(RXNORM) [facility] 402681([facility]) Repository 09/12/2018 Drug simvastatin/[id number] Myalgias, flu [place] Allergy/416 621(RXNORM) like sx Community 335090([facility]) Repository 06/02/2005 DRUG AMOXICILLIN RASH [facility] INGREDI/[address] [place] 869494(SNOM Repository ED CT) 06/02/2005 Drug SALICYLATES [facility] Class/68142 [address] [place] 1003(SNOMED Repository CT) 06/02/2005 DRUG METRONIDAZOLE HCL [facility] INGREDI/[address] [place] 187393(SNOM Repository ED CT) 06/02/2005 DRUG LISINOPRIL [facility] INGREDI/[address] [place] 974212(SNOM Repository ED CT) 06/02/2005 Drug PENICILLINS RASH [facility]/08156 [address] [place] 1003(SNOMED Repository CT) ENCOUNTERS ENCOUNTERS ADMIT/DISCHARGE ACCOUNT ADMITTING ENCOUNTER LOCATION SOURCE NUMBER CLASS 09/12/2018/09/12/20 [id number] Ambulatory BMSBuilding:B [place] [address] [facility] Repository 09/06/2018 [id number] Ambulatory [facility] HospitalBuild Hospital ing:LAB Repository 08/27/2018 [id number] Ambulatory [facility] HospitalBuild Hospital ing:MASS Repository 08/12/2018/08/26/20 [id number] Ambulatory [address] Repository 08/06/2018/08/06/20 [id number] Ambulatory [address] Repository 07/19/2018/07/19/20 [id number] Ambulatory BMSBuilding:B [place] 18 [facility] Repository 07/12/2018 [id number] Ambulatory BMSBuilding:B [place] MS.[facility] Repository 07/12/2018/07/12/20 [id number] Ambulatory [address] HospitalBuild Hospital ing:SDCRoom: Repository 20 07/12/2018 [id number] Ambulatory BMSBuilding:W [facility] Repository 06/24/2018 [id number] Ambulatory [facility] HospitalBuild Hospital ing:SDC Repository 06/19/2018/06/19/20 [id number] Ambulatory [address] HospitalBuild Hospital ing:CLSP Repository 06/19/2018 [id number] Ambulatory BMSBuilding:W [facility] Repository 06/07/2018/06/07/20 [id number] Ambulatory BMSBuilding:B [place] 18 [facility] Repository 06/05/2018 [id number] Ambulatory [facility] HospitalBuild Hospital ing:CVS Repository 06/05/2018 [id number] Ambulatory BMSBuilding:W [facility] Repository 06/04/2018 [id number] Ambulatory [facility] HospitalBuild Hospital ing:CVS Repository 05/31/2018 [id number] Ambulatory [facility] HospitalBuild Hospital ing:LAB Repository 05/31/2018 [id number] Ambulatory BMSBuilding:B [place].[facility] Repository 05/31/2018 [id number] Ambulatory BMSBuilding:B [place].[facility] Repository 05/30/2018/05/30/20 [id number] Ambulatory BMSBuilding:B [place] 18 MS.[facility] Repository 05/28/2018/05/28/20 [id number] Ambulatory BMSBuilding:B [place] 18 MS.W[facility] Repository 05/22/2018 [id number] Ambulatory [place] [facility] ing:US Repository 05/17/2018/05/18/20 [id number] Emergency [place] [address] [facility] ing:ED Repository 04/17/2018/04/23/20 [id number] Ambulatory [address] Repository 02/04/2018/02/19/20 [id number] Ambulatory [address] Repository 01/25/2018 [id number] Ambulatory [facility] Repository PAYERS PAYERS ENCOUNTER GUARANTOR PAYER SUBSCRIBER SOURCE 09/12/2018 ANAMIKA L Primary ANAMIKA L [place] [id number] [place] Insurance:HUMANA WARGODOB: Community [place]ASSAPT MEDICARE [facility] [id number] Number: Repository 20[address]Lmk: 330 [id number] [phone] (HP) Date:5023-53-97DE [address] [place] [address]NC: 09/12/2018 Secondary ANAMIKA L [place] Insurance:MEDICARE WARGODOB: Community PART A [facility] [id number] Hospital Number: Repository [id number] Date:2018-06-20 09/12/2018 Tertiary NOT GIVENUNK [place] Insurance:SELF PAY [facility] Number: Effective Repository Date:2018-09-12 09/06/2018 ANAMIKA L Primary ANAMIKA L [place] [id number] [place] Insurance:HUMANA WARGODOB: Community PASSAPT MEDICARE [facility] [id number] Number: Repository [address]Xuf: 330 [id number] [phone] (HP) Date:6074-14-91OX [address] [address]GS: 09/06/2018 Secondary NOT GIVENUNK [place] Insurance:SELF PAY [facility] Number: Effective Repository Date:2018-09-06 08/27/2018 ANAMIKA L Primary NOT GIVENUNK [place] [id number] ELIM [place] Insurance:SELF PAY [facility] Number: Effective Repository [address]Yob: (330) Date:2018-08-23 [phone] ([phone] 07/19/2018 ANAMIKA L Primary ANAMIKA L [place] [id number] [place] Insurance:HUMANA WARGODOB: Community PASSAPT MEDICARE [id number] [place] Number: Repository [address]Iil: (330) [id number] [phone]) Date:7652-01-96KL [address] [address]TY: 07/19/2018 Secondary NOT GIVENUNK [place] Insurance:SELF PAY [facility] Number: Effective Repository Date:2018-07-19 07/12/2018 ANAMIKA L Primary ANAMIKA L [place] [id number] [place] Insurance:HUMANA WARGODOB: Community P[place]T MEDICARE [facility] [id number] [place] Number: Repository [address]Ewk: (330) [id number] [phone] Date:6099-26-78MN[address] [address]UO: 07/12/2018 Secondary NOT GIVENUNK [place] Insurance:SELF PAY [facility] Number: Effective Repository Date:2018-07-12 07/12/2018 ANAMIKA L Primary ANAMIKA L [place] [id number] [place] Insurance:HUMANA WARGODOB: Community P[place]T MEDICARE [facility] [id number] [facility] [place] Number: Repository [address]Qbr: (330) [id number] [phone]) Date:2664-99-85JV [address] [address]IB: 07/12/2018 Secondary NOT GIVENUNK [place] Insurance:SELF PAY [facility] Number: Effective Repository Date:2018-07-03 07/12/2018 ANAMIKA L Primary ANAMIKA L [place] [id number] [place] Insurance:HUMANA WARGODOB: Community PASSAPT MEDICARE PPOPolicy [id number] [facility] [place] Number: Repository [address]Ver: (330) [id number] [phone]) Date:2982-91-55GU [address] [address]KQ: 07/12/2018 Secondary NOT GIVENUNK [place] Insurance:SELF PAY [facility] Number: Effective Repository Date:2018-07-12 06/24/2018 ANAMIKA L Primary ANAMIKA L [place] [id number] [place] Insurance:HUMANA WARGODOB: Community PASSAPT MEDICARE PPOPolicy [id number] General Hospital [place] Number: Repository [address]Vwk: (330) [id number] [phone]) Date:4667-52-37WQ [place] [address]WP: 06/24/2018 Secondary NOT GIVENUNK [place] Insurance:SELF PAY [facility] Number: Effective Repository Date:2018-05-28 06/19/2018 ANAMIKA L Primary ANAMIKA L [place] [id number] [place] Insurance:HUMANA WARGODOB: Community PASSAPT MEDICARE OPolicy [id number] Number: Repository [address]Eqz: (330) [id number] [phone]) Date:8200-85-16ZP [place] [address]WP: 06/19/2018 Secondary NOT GIVENUNK [place] Insurance:SELF PAY [facility] Number: Effective Repository Date:2018-06-07 06/19/2018 ANAMIKA L Primary ANAMIKA L [place] [id number] [place] Insurance:HUMANA WARGODOB: Community PASSAPT MEDICARE OPolic [id number], [place] Number: Repository [address]Vpd: (330) [id number] [phone]) Date:1395-72-94[place] [address]WP: 06/19/2018 Secondary NOT GIVENUNK [place] Insurance:SELF PAY [facility] Number: Effective Repository Date:2018-06-19 06/07/2018 ANAMIKA Natarajan Primary ANAMIKA Leary [id number] [place] Insurance:HUMANA WARGODOB: Community PASSAPT MEDICARE PPOPolicy [id number], [place] Number: Repository [address]Vsy: 330 [id number] [phone] Date:5919-47-51TF [address] [address]XL: 06/07/2018 Secondary NOT GIVENUNK [place] Insurance:SELF PAY [facility] Number: Effective Repository Date:2018-06-07 06/05/2018 ANAMIKA Natarajan Primary ANAMIKA Natarajan [place] [id number] [place] Insurance:HUMANA WARGODOB: Community PASSAPT MEDICARE [facility] [id number] General Hospital [place] Number: Repository [address]Ohm: (330 [id number] [phone] Date:2828-34-62HG[address] [address]GE: 06/05/2018 Secondary NOT GIVENUNK [place] Insurance:SELF PAY [facility] Number: Effective Repository Date:2018-05-30 06/05/2018 ANAMIKA Natarajan Primary ANAMIKA eLary [id number] [place] Insurance:HUMANA WARGODOB: Community PASSAPT MEDICARE [facility] [id number] General Hospital [place] Number: Repository [address]Dbh: (330) [id number] [phone] Date:[id number] [address]QU: 06/05/2018 Secondary NOT GIVENUNK [place] Insurance:SELF PAY [facility] Number: Effective Repository Date:2018-06-05 06/04/2018 ANAMIKA Natarajan Primary ANAMIKA Leary [id number] [place] Insurance:HUMANA WARGODOB: Community PASSAPT MEDICARE [facility] [id number] General Hospital [place] Number: Repository [address]Fvr: (330 [id number] [phone]) Date:8214-91-30VH [address] [address]JC: 06/04/2018 Secondary NOT GIVENUNK [place] Insurance:SELF PAY [facility] Number: Effective Repository Date:2018-05-30 05/31/2018 ANAMIKA L Primary ANAMIKA L [place] [id number] [place] Insurance:HUMANA WARGODOB: Community PASSAPT MEDICARE PPOPolicy [id number], [place] Number: Repository [address]Hpl: (330) [id number] [phone]) Date:9401-52-88XY [address] [address]NW: 05/31/2018 Secondary NOT GIVENUNK [place] Insurance:SELF PAY [facility] Number: Effective Repository Date:2018-05-31 05/31/2018 ANAMIKA L Primary ANAMIKA L [place] [id number] [place] Insurance:HUMANA WARGODOB: Community PASSAPT MEDICARE OPolicy [id number], [place] Number: Repository [address]Ziq: (330) [id number] [phone] Date:3873-68-55QK [address] [address]RK: 05/31/2018 Secondary NOT GIVENUNK [place] Insurance:SELF PAY [facility] Number: Effective Repository Date:2018-05-20 05/31/2018 ANAMIKA L Primary ANAMIKA L [place] [id number] [place] Insurance:HUMANA WARGODOB: Community PASSAPT MEDICARE OPolic [id number], [place] Number: Repository [address]Ijy: (330 [id number] [phone] (HP) Date:9672-33-79TO [address] [address]HB: 05/31/2018 Secondary NOT GIVENUNK [place] Insurance:SELF PAY [facility] Number: Effective Repository Date:2018-05-22 05/30/2018 ANAMIKA L Primary ANAMIKA L [place] [id number] [place] Insurance:HUMANA WARGODOB: Community PASSAPT MEDICARE PPOPolicy [id number] General Hospital [place] Number: Repository [address]Nkg: (330) [id number] [phone]) Date:0330-56-66VH [address] [address]FY: 05/30/2018 Secondary NOT GIVENUNK [place] Insurance:SELF PAY [facility] Number: Effective Repository Date:2018-05-30 05/28/2018 ANAMIKA L Primary ANAMIKA Natarajan [place] [id number] [place] Insurance:HUMANA WARGODOB: Community PASSAPT MEDICARE [facility] [id number] General Hospital [place] Number: Repository [address]Pgf: (330) [id number] [phone]) Date:3554-88-67UQ [address] [address]GU: 05/28/2018 Secondary NOT GIVENUNK [place] Insurance:SELF PAY [facility] Number: Effective Repository Date:2018-05-27 05/22/2018 ANAMIKA L Primary ANAMIKA Natarajan [place] [id number] [place] Insurance:HUMANA WARGODOB: Community PASSAPT MEDICARE [facility] [id number] General Hospital [place] Number: Repository [address]Vnu: (330) [id number] [phone]) Date:8790-69-61EU [place] [address]WP: 05/22/2018 Secondary NOT GIVENUNK [place] Insurance:SELF PAY [facility] Number: Effective Repository Date:2018-05-20 05/17/2018 ANAMIKA L Primary ANAMIKA Natarajan [place] [id number] [place] Insurance:HUMANA WARGODOB: Community PASSAPT MEDICARE [facility] [id number] General Hospital [place] Number: Repository [address]Lry: (330) [id number] [phone] (HP) Date:1817-46-03ZH [place] [address]WP: 05/17/2018 Secondary NOT GIVENUNK [place] Insurance:SELF PAY [facility] Number: Effective Repository Date:2018-05-17
== END ==
PROVIDERS: Family Provider Internal Medicine; PCP Internal Medicine; Referring Provider Internal Medicine Cardiovascular Disease; Visit Provider Internal Medicine Cardiovascular Disease
DX: E78.5 Hyperlipidemia, unspecified (principal)
CPT/HCPCS: 36415; 80061; 80076

== ENCOUNTER → 2019-11-26 09:16 | Outpatient (CLI) | payer MEDICARE, SELFPAY ==
[2019-11-26 09:05] VITALS: BMI 38.1
--- NOTE | 2019-11-26 09:17 | RAD_ITS ---
STUDY: X-RAY - PELVIS AND RIGHT HIP REASON FOR EXAM: Pain for 16 months. TECHNIQUE: 2 views of the pelvis and hip. COMPARISON: None. FINDINGS: There are small pelvic phleboliths. Normal bilateral iliac wings, sacroiliac joints and visualized sacrum. Normal bilateral superior and inferior pubic rami. Normal pubic symphysis. Normal bilateral ischial tuberosities. Normal visualized femoral head. Normal acetabulum. There is moderate joint space narrowing of the right hip joint. There is a bone island in the intertrochanteric right femur. RAD/HIP, UNI W/ Pelvis 2-3 Views IMPRESSION: Right hip arthrosis. Electronically Signed: Tod Tellez MD at 14:51 EST Tel , Service support ,
--- NOTE | 2019-11-26 09:33 | RAD_ITS ---
STUDY: X-RAY - LUMBAR SPINE REASON FOR EXAM: Female, 74 years old. RIGHT HIP PAIN TECHNIQUE: 5 view(s) of the lumbar spine were obtained. COMPARISON: None FINDINGS: Normal lumbar lordosis. There is no demonstrated spondylolisthesis on flexion and extension There is multilevel endplate spondylosis of the lumbar vertebrae. There is multi-level degenerative disc disease with multi-level disc space narrowing. The soft tissue structures are unremarkable. RAD/L/S Spine w Bend Min 6 Vw IMPRESSION: Degenerative changes of the spine. Electronically Signed: Mariana Marsh MD at 8:23 EST Tel , Service support ,
== END ==
PROVIDERS: PCP Internal Medicine; Referring Provider Orthopaedic Surgery; Visit Provider Orthopaedic Surgery
DX: M79.18 Myalgia, other site (principal); M25.551 Pain in right hip
CPT/HCPCS: 72114; 73502

== ENCOUNTER → 2020-09-10 09:00 | Outpatient (CLI) | payer MEDICARE, SELFPAY ==
[2020-09-09 13:08] VITALS: BMI 36.1
--- NOTE | 2020-09-14 11:16 | EKG12_ITS ---
Test Reason : PRE OP Blood Pressure : / mmHG Vent. Rate : 064 BPM Atrial Rate : 064 BPM P-R Int : 180 ms QRS Dur : 086 ms QT Int : 386 ms P-R-T Axes : 031 -40 -65 degrees QTc Int : 398 ms Normal sinus rhythm Left axis deviation Poor R wave progression Nonspecific T wave abnormality Abnormal ECG Confirmed by SYDNI MAGAÑA, KIKO ([id number]), medical editor DYLLAN WANG ([id number]) on 09/15/2020 1:09:40 PM Referred By: Richi Short Confirmed By:KIKO TROY MD
[2020-09-14 12:32] LABS: Absolute Lymphocyte Count 1.63 X10^3/uL (0.83-4.51); Absolute Neutrophil Count 3.2 X10^3/uL (2.0-7.7); Basophil# 0.02 X10^3/uL; Basophil% 0.4 % (0-1); Eosinophil# 0.24 X10^3/uL; Eosinophils% 4.3 % (0-5); Hematocrit 38.3 % (37-47); Hemoglobin 12.7 g/dL (12.0-15.0); Lymphocyte # 1.63 X10^3/ul (4.0); Mean Corp Hgb Conc 33.2 g/dL (32-36); Mean Corpuscular Hgb 30.5 pg (27.0-32.0); Mean Corpuscular Volume 91.8 fL (81-99); Mean Platelet Vol. 10.3 fl (6.2-12.0); Monocyte# 0.49 X10^3/uL; Monocyte% 8.7 % (0-10); NRBC Flagged by Analyzer 0 % (0-5); Neutrophil # 3.22 X10^3/uL (2.7-7.7); Neutrophil % 57.2 % (47-70); Platelet Count 251 K/mm3 (150-450); RBC Distribution Width CV 12.4 % (11.6-14.6); RBC Distribution Width SD 41.4 fl (35.1-43.9); Red Blood Count 4.17 M/mm3 (4.2-5.4); White Blood Count 5.6 K/mm3 (4.4-11.0)
[2020-09-14 12:50] LABS: International Normalized Ratio 1.1; Partial Thromboplast Time 28.2 Seconds (24.1-36.2); Prothrombin Time (Protime)PT. 13.4 SECONDS (11.7-14.9)
[2020-09-14 12:55] LABS: Magnesium 1.9 mg/dL (1.6-2.6)
[2020-09-14 12:57] LABS: Anion Gap 8 (5-15); BUN 15 mg/dL (7-18); BUN/Creat Ratio 21.4 RATIO (10-20); Calcium,Total 9.2 mg/dL (8.5-10.1); Chloride 106 mmol/L (98-107); EST Glomerular Filtration Rate 87 mL/min (>60); Est Glom Filt Rate - Afr Amer 105 mL/min (>60); Glucose 97 mg/dL (74-106); Potassium 3.2 mmol/L (3.5-5.1); Sodium Level 141 mmol/L (136-145)
--- NOTE | 2020-09-16 16:03 | CASEMGMT ---
Phone call received from Colette at Dr. Short's office to inform case management that patient is requesting to be discharged to TCU at discharge. Pt lives independently at this time and alone. Pt expressed concern with donning and doffing of her JEAN hose postoperatively. Pt states her neighbor currently has been assisting her intermittently but she works 12 hours shifts and will not be available routinely. The contacts listed in her demographics are her cousin and his who are also not available to provide her assistance. Pt states she does not have any other family locally that would be available to assist her. This RN KARRIE explained the process of her receiving physical therapy after surgery. This evaluation and her history will be submitted to her insurance company for determination if a stay in a intermediate facility will be approved or not approved. Colette did state that Dr. Short would be willing to complete a peer to peer review if initially denied. Explained to patient that in the case that insurance would deny a intermediate stay, she would need an alternative plan that can include home health or outpatient therapy. Explained that neither option would provide her with 24 hour care in her home and that if she would want additional assistance, she should make these arrangements prior to her surgery. Pt states that she was feeling overwhelmed as she had just gotten off the phone with [employer] and had also been notified of her having to follow-up with her PCP due to a low potassium level. Pt did express understanding of the above but required reinforcement. Pt questioned the use of a lift chair and of the need to wear the JEAN hose postoperatively. Referred her to Dr. Short for clarification on these questions. Johnson Damico RN CM
== END ==
PROVIDERS: Anesthesiology; PCP Internal Medicine; Referring Provider Orthopaedic Surgery; Visit Provider Orthopaedic Surgery
DX: Z01.818 Encounter for other preprocedural examination (principal)
CPT/HCPCS: 36415; 80048; 83735; 85025; 85610; 85730; 86850; 86900; 86901; 87081; 93005

== ENCOUNTER → 2020-09-14 11:20 | Outpatient (CLI) | payer MEDICARE, SELFPAY ==
[2020-09-09 13:08] VITALS: BMI 36.1
--- NOTE | 2020-09-14 12:41 | CT_ITS ---
STUDY: CT SCAN LOWER EXTREMITY RIGHT BILATERAL REASON FOR EXAM: Female, 75 years old. Right hip arthroplasty-[facility] protocol RADIATION DOSAGE (If Supplied By Facility): CTDIvol = ( 13.87 ) mGy, DLP = ( 839.09 ) mGycm. Individualized dose optimization techniques were used for this CT.? TECHNIQUE: Multiple axial tomographic images of the right hip joint and right knee joint were obtained. r axial and coronal reconstruction was obtained as well. COMPARISON: None. FINDINGS: Degenerative changes of the sacroiliac joints bilaterally. Marked degree of joint space narrowing involving the superior lateral aspect of the right hip joint with subchondral geodes in the femoral head and acetabulum. Degenerative spurring along the superior lateral aspect of the humeral head. Moderate degree of the joint space narrowing involving the medial compartment of both knee joints. CT/Extremity Lower without Contra IMPRESSION: Marked degree of osteoarthritis involving the right hip joint as described. Moderate degree of joint space along the medial compartment of both knee joints. Electronically Signed: Kem Gomez, at 13:31 EST , Service support ,
== END ==
PROVIDERS: PCP Internal Medicine; Referring Provider Orthopaedic Surgery; Visit Provider Orthopaedic Surgery
DX: M16.11 Unilateral primary osteoarthritis, right hip (principal)
CPT/HCPCS: 73700

== ENCOUNTER 2020-11-24 06:46 | Observation (INO) | payer MEDICARE, SELFPAY ==
[2020-09-09 13:08] VITALS: BMI 36.1
--- NOTE | 2020-11-05 22:51 | PCM.HP.BLA ---
History and Physical History and Physical [facility] Patient Name: Dodie Li : 1945 From: DEBBIE AYALA PA-C DATE OF SURGERY: 11/24/2020 SCHEDULED PROCEDURE: right total hip arthroplasty HISTORY OF PRESENT ILLNESS: Preoperative history and physical exam was performed on November 05, 2020. This is a 75-year-old female who has had ongoing pain since 2018 with regards to her right hip. Pain can reach 8/10 with activities. Her pain has been constant and aching. She has increased pain going up and down stairs and sitting. Patient has difficulty with activities of daily living including housework, shopping, and carrying objects. Patient feels unsafe scrubbing floors or walking far distances. Patient has tried conservative measures including rest, ice, elevation with no relief in symptoms. She has tried meloxicam which is only given her minimal relief. She uses a cane and walker off and on for the past 2 months. She denies previous surgeries. She has had [address] Crockett. Patient states the pain occasionally wakes her at night. After failing conservative measures and discussing treatment options with Dr. Alex Carmen, the patient does wish to proceed with a right total hip arthroplasty. We are obtaining surgical clearance from the primary care physician Dr. Russo and cardiology Delfino Kramer. Patient currently denies any chest pain, shortness of breath, fevers chills or recent infections. She has medical history heart catheterization in 2018. REVIEW OF SYSTEMS: ROS: Const: Denies change in appetite, fever and weight change. CV: Denies chest pain, heart murmur and irregular heartbeat. Resp: Denies cough, pneumonia, shortness of breath, tuberculosis and wheezing. GI: Denies constipation, diarrhea, heartburn, nausea, rectal itching, bloody stools and vomiting. : Denies incontinence. Musculo: Denies leg swelling, pain, trouble walking and weakness. Skin: Denies Raynaud's, history of shingles and tattoo. Neuro: Denies ambulatory dysfunction, dizziness, numbness/tingling and tremor. Psych: Denies anxiety, insomnia and stress. Mayur/Lymph: Denies anemia, bleeding/bruising tendency and past transfusion. Reviewed, no changes. PAST MEDICAL HISTORY: Advance Care Plan: Other Directive, POA Effective Date: 07/17/2019 PMH: Medical Problems: Arthritis, Fibromyalgia, High Blood Pressure, Hypercholesterolemia, depression, macular degeneration, Reflux Accidents: None Surgical Hx: Fiserectomy Wrist Surgery - [address] [place] [address] Santiago Wrist Surgery - [place] [facility] - (07/2018) Heart Cath - 9-12-18 [facility] Anesthesia Complications: None Assistive Devices: Glasses - READING AND DISTANCE, Cane Reviewed and updated. SOCIAL HISTORY: SH: Marital: Single.Occupation: Retired.Work Status: Retired.Hand Dominance: Right-handed. Personal Habits: Cigarette Use: Never.Smokeless Tobacco: Never Used Smokeless Tobacco.E-Cigarette Use: Never used.Alcohol: Denies use.Drug Use: Denies Use.Enjoy Exercising: Never Exercises. Reviewed, no changes. VITALS: Ht: 59 Wt: 189lb Wt k.730 BMI: 38.2 BP: 100/62 Pulse: 68 Resp: 16 T: 96.2 T: 35.7C Pain Level: 7 ALLERGIES: Penicillin Ampicillin Lisinopril Flagyl Amoxicillin MEDICATIONS: Omeprazole 20 mg 1 cap PO daily, Eye Vitamins 1 cap PO qid, Super Oat Bran 2 tabs PO daily, Potassium Chloride ER 10 Meq 1 cap PO puneet, Atenolol-Chlorthalidone 100-25 mg 1/2 tab PO daily, Fish Oil 1000 mg 1 cap PO daily, Vitamin D3 25 mcg (1000 Ut) 1 by mouth daily, B Complex 1 tab PO daily, Vitamin C 500 mg 1 tab PO daily, Aspirin 81 mg 1 tab PO daily, Gemfibrozil 600 mg 1 tab PO bid, Stool Softener 100 mg 2 caps PO qhs, Leticia Allergy 180 mg 1 tab PO daily, Vitamin E 400 Unit 1 cap PO daily, Meloxicam 7.5 mg 1 by mouth DAILY, Doxepin HCL 25 mg 1po qday, Lunesta 3 mg 1po qday, Calcium + D 500-1000-40 MG-Unt-mcg 1 by mouth every day PRE-OP EXAM: General appearance:NORMAL Other: Eyes: Conjunctivae and lids: NORMAL Pupils: ERR Ears, Nose, Mouth, and Throat: NORMAL Other: Inspection of lips, teeth and gums: NORMAL Other: Neck: Examination of neck: no masses noted. Respiratory: Assessment of respiratory effort: NORMAL Other: Auscultation of lungs: clear to auscultation no wheezes, rhonchi or rales. Cardiovascular: Auscultation of heart: regular rate and rhythm, no murmurs, gallops or rubs. Exam of carotid arteries: NORMAL Other: Gastrointestinal: Exam of abdomen: soft, nontender, nondistended bowel sounds present. PHYSICAL EXAMINATION: Patient walks with an antalgic gait. She has tenderness to palpation over the right lateral hip. She has obligatory external rotation with flexion. Flexion 70, internal rotation 15, external rotation 45. Right hip is 4 mm shorter than the left hip. Sensation intact to light touch. IMAGING STUDIES: X-rays were obtained at [facility] [place] on November 05, 2020 including AP pelvis, AP right hip, reveals joint space narrowing, subchondral sclerosis, osteophyte formation, subchondral cyst in the femoral head consistent with severe grade 4 right hip osteoarthritis. No acute finding for fracture or dislocation. No lytic or blastic lesions. IMPRESSION: 1. Severe right hip osteoarthritis 2. Hypertension next line 3. Fibromyalgia 4. Hypercholesterolemia 5. Depression 6. Macular degeneration 7. Gastroesophageal reflux disease 8. History of heart catheterization 2018 PLAN: Dr. Alex Carmen did discuss and review with the patient all treatment options including surgical versus nonsurgical options. Patient does wish to proceed with the above-stated procedure. Potential risks, benefits, and complications of the procedure were discussed in detail including but not limited to , infection, nerve and blood vessel damage, persistent pain, numbness, tingling, paresthesias, blood clot, pulmonary embolism, and requirement for possible further surgery. The patient expressed full understanding and has no further questions for the doctor. Patient does agree to proceed with the above-stated procedure and has signed the surgery consent form. We discussed the current risks associated with COVID 19. This does include the risk of exposure while in the hospital. Patient was reassured local hospitals have low infection rates and are taking all necessary precautions to avoid exposure to patients. In addition, we discussed strategies that can be used to help limit exposure including those that limit the patient's time in the hospital. Also using strategies to limit the patient's need for continued inpatient services after being discharged from the hospital. Patient was notified that we will need to comply with any screening or testing the hospital wishes to perform or that surgery may be delayed for any positive results. This dictation was created using voice recognition software. Phonetic and/or grammatical errors may exist. ___ I have re-examined the patient. There are no clinical changes since date of exam. ___ See progress notes for changes. ___ Dictated on admission Date: Time: Signature:
[2020-11-11 11:13] LABS: Absolute Lymphocyte Count 1.41 X10^3/uL (0.83-4.51); Absolute Neutrophil Count 3.4 X10^3/uL (2.0-7.7); Basophil# 0.03 X10^3/uL; Basophil% 0.5 % (0-1); Eosinophil# 0.19 X10^3/uL; Eosinophils% 3.4 % (0-5); Hematocrit 38.4 % (37-47); Hemoglobin 12.8 g/dL (12.0-15.0); Lymphocyte # 1.41 X10^3/ul (4.0); Lymphocyte % 25.6 % (19-41); Mean Corp Hgb Conc 33.3 g/dL (32-36); Mean Corpuscular Hgb 30.5 pg (27.0-32.0); Mean Corpuscular Volume 91.4 fL (81-99); Mean Platelet Vol. 10.4 fl (6.2-12.0); Monocyte# 0.43 X10^3/uL; Monocyte% 7.8 % (0-10); NRBC Flagged by Analyzer 0 % (0-5); Neutrophil # 3.43 X10^3/uL (2.7-7.7); Neutrophil % 62.3 % (47-70); Platelet Count 272 K/mm3 (150-450); RBC Distribution Width CV 12.2 % (11.6-14.6); RBC Distribution Width SD 40.7 fl (35.1-43.9); White Blood Count 5.5 K/mm3 (4.4-11.0)
[2020-11-11 11:46] LABS: Anion Gap 7 (5-15); BUN 17 mg/dL (7-18); BUN/Creat Ratio 22.3 RATIO (10-20); Calcium,Total 9.6 mg/dL (8.5-10.1); Chloride 103 mmol/L (98-107); Creatinine, Serum 0.76 mg/dL (0.55-1.02); EST Glomerular Filtration Rate 79 mL/min (>60); Est Glom Filt Rate - Afr Amer 95 mL/min (>60); Glucose 98 mg/dL (74-106); Potassium 3.3 mmol/L (3.5-5.1); Sodium Level 137 mmol/L (136-145)
[2020-11-17 07:55] LABS: Albumin, Serum 3.9 g/dL (3.2-5.0)
[2020-11-24] VITALS (15 sets, daily range): BP systolic 100–153; BP diastolic 57–134; PULSE 64–75; RESP 14–18; TEMP 35.8–36.8; O2SAT 92–100; BMI 36.3
[2020-11-24] MEDS: Acetaminophen 500 MG Tablet 1000 MG PO ×3 (06:31→21:13)
[2020-11-24] MEDS: Celecoxib 200 MG Capsule 400 MG PO (06:31)
[2020-11-24] MEDS: Lactated Ringers 1,000 ML 999 ML IV ×2 (06:32→09:50)
[2020-11-24] MEDS: Gabapentin 600 MG Tablet PO (06:32)
[2020-11-24] MEDS: Cefazolin 2 GM in 0.9% Normal Saline 100 ML IV (07:27)
--- NOTE | 2020-11-24 07:30 | RAD_ITS ---
STUDY: X-RAY - PELVIS AND RIGHT HIP REASON FOR EXAM: Female, 75 years old. RT ANTERIOR TOTAL HIP IN O.R. 5 SEC. FL, 4 IMAGES TECHNIQUE: 1 views of the pelvis and hip. COMPARISON: Comparison is made with prior examination dated 08/20/2020. FINDINGS: Intraoperative imaging provided for right total hip replacement. RAD/Hip 1 view with Pelvis IMPRESSION: Intraoperative imaging provided for right total hip replacement. Electronically Signed: Kem Gomez MD at 10:05 EST , Service support ,
[2020-11-24] MEDS: dexAMETHasone 10 MG/ML Vial IV (07:41)
[2020-11-24 08:10] LABS: Bedside Glucose 105 mg/dL (70-110)
--- NOTE | 2020-11-24 09:00 | PCM.OPRPT ---
Report of Operation Date of Procedure: 11/24/20 Pre-Operative Diagnosis: Right hip primary osteoarthritis Post-Operative Diagnosis: Right hip primary osteoarthritis Surgery/Procedure Performed:: Right hip minimally invasive direct anterior total hip replacement Description of Surgical Findings:: Stable hip with equal leg lengths dental office receptionist: amy - Janie Segovia Type of Anesthesia:: Spinal Anesthesiologist: Gabino Albrecht Special Medications: 2 g Ancef, 1 g TXA at incision, 1 g TXA closure, 10 mg Decadron, joint cocktail (5 mg Duramorph, 30 mL of 0.5% Ropivicaine, 1000 units of epinephrine, 30 mg of Toradol) Specimen's removed: Bony cuts Estimated Blood Loss (mL): 250 Fluids Replaced: 700 mL crystalloid Description of Procedure: Components used: 1. Accolade 2 [place] femoral stem size 3 127? 2. [place] trident 2 acetabular shell size 50 mm 3. Panchito X3 polyethylene d 4. Panchito Biolox delta 36 mm, -2.5mm femoral head Brief history operative indications: 75 yo f who failed conservative measures for their hip osteoarthritis. X-rays were consistent with osteoarthritis including joint space narrowing, osteophyte formation and subchondral cysts. Total hip replacement was discussed with the patient with risks and benefits including but not limited to blood loss, DVTs, PEs, neurovascular damage, dislocation, general risks of anesthesia including loss of life. Patient demonstrated an understanding medical clearance is obtained the patient was consented for surgery. Procedure: On the date of procedure the patient's R hip was marked in the preoperative area. Patient was then taken back to the operating room where anesthesia assumed control of the C-spine and airway and administered anesthetic. Patient was transferred to the operating table and placed in the supine position. The hips were placed at the break of the bed and a sacral bump was placed. The R lower extremity was then prepped out in a sterile fashion using chlorhexidine while the surgeon scrubbed. The PA was vital in the positioning of the patient. Upon reentering the room the R lower extremity was draped in the standard orthopedic fashion and the incision was marked. A timeout was called and everyone agreed upon the side, the site, the procedure be performed, antibody given, and patient's identity. At this time incision was made through skin, subcutaneous tissue, and fat down to fascia. The fascia was then incised and the TFL was retracted laterally. A retractor was placed on the lateral border of the femoral neck. Attention was directed to the inferior portion of the approach and all crossing vessels were identified and appropriately coagulated. A retractor was then placed on the medial portion of the femoral neck. The anterior capsule was then cleared of all soft tissue and then H shaped capsulotomy was made. The retractors were then placed inside the capsule. The femoral neck was identified and a cleanup cut was made. At this time a power corkscrew was used to remove the femoral head. Attention was then turned toward the acetabulum where the soft tissues were appropriately retracted and the acetabulum was sequentially reamed to 50 mm. A 50 mm cup was then selected and impacted into place. Acetabular liner was impacted into place and locking mechanism was verified. The position of the acetabular cup was then verified under live fluoroscopy. Attention was then turned to the femur. Soft tissue releases on the medial and lateral femoral neck were appropriately done, the leg was externally rotated and lateralized. A Holder retractor was placed medially and proximally to the greater trochanter this allowed appropriate visualization and exposure of the femoral canal. Rongeour was then used to remove excess lateral bone. A canal finder and entry broach were used to open the proximal canal. Once we verified we were down the femoral canal we subsequently broached up to a size 3 femur. The appropriate neck was placed in the previously selected head was trialed with a -2.5 mm neck. Traction was pulled and the hip was reduced with internal rotation. Once it was appropriately reduced and stability was checked. There was minimal shuck, equal leg lengths and appropriate stability with hyperextension and external rotation as well as with 90? flexion and internal rotation. Fluoroscopy was then also used to verify the position of the components and leg lengths using the contralateral side for comparison. The trial components were then dislocated the proximal femur was again exposed and the components were removed from the wound. The final components were verified and opened. The wound was copiously irrigated out with normal saline. The acetabulum was checked for any residual debris. The final components were placed and impacted. Traction and internal rotation were again used to reduce the hip. After adequate reduction the hip remained stable with appropriate leg lengths. The final components were once again checked with live fluoroscopy and were found to be satisfactory. The wound was then copiously irrigated with normal saline once more, and hemostasis was obtained. Closure was then done using #1 Vicryl runner to close the fascia. A 2-0 vicryl interuppted sutures were used to close the subcutaneous skin. A 3-0 Monocryl and Steri-Strips were used for final skin closure. A Silverlon dressing was placed. Patient was awakened by anesthesia and transferred to the [facility]. Patient was then transferred to the PACU for recovery. Postoperative plan: Patient will get 24 hours postop antibiotics. Patient will get in-house physical therapy and will be weight-bear as tolerated. Patient will follow up in office in 2 weeks for a wound check and x-rays. Aspirin 81 mg twice daily. - Complications No intraoperative complications - Admit VTE Documentation VTE Present on Admission: No VTE Mechan Device Prophylaxis: SCD's, Thigh High JEAN Hose VTE Pharm Prophylaxis ordered?: Yes
--- NOTE | 2020-11-24 10:10 | RAD_ITS ---
STUDY: X-RAY - PELVIS AND RIGHT HIP REASON FOR EXAM: Female, 75 years old. POST OP IQRA TECHNIQUE: 2 views of the pelvis and hip. COMPARISON: Comparison is made with prior study dated 08/20/2020. FINDINGS: The patient is status post right total hip replacement. There is good alignment. Postoperative soft tissue changes. RAD/Hip Min 2 Views (Portable) IMPRESSION: Status post right total hip preplacement. There is good alignment. Electronically Signed: Kem Gomez MD at 10:34 EST , Service support ,
[2020-11-24 10:51] LABS: Bedside Glucose 153 mg/dL (70-110)
[2020-11-24] MEDS: Cefazolin 1 GM/50 ML BAG IV ×2 (16:06→23:46)
[2020-11-24] MEDS: Lactated Ringers 1,000 ML 125 ML IV (16:06)
--- NOTE | 2020-11-24 17:11 | PN_ITS ---
<HerberthKenay BIOINFORMATICS PROGRAMMER - Last Filed: 11/24/20 17:16> Subjective: Patient seen and examined. Underwent right total hip replacement by Dr. Carmen. Currently resting in chair and denies significant pain. She denies other symptoms or complaints. - Physical Exam Vitals/I&O's: Vital Signs Temp Pulse Resp BP Pulse Ox 98.2 F 68 18 124/58 H 95 11/24/20 15:59 11/24/20 15:59 11/24/20 15:59 11/24/20 15:59 11/24/20 15:59 Oxygen Flow Rate (L/min) 6 Oxygen Delivery Method Room Air Weight: 186 lb 4.65 oz Body Mass Index (BMI) 36.3 Intake and Output for Last 24 Hours 11/22/20 11/23/20 11/24/20 23:59 23:59 23:59 Intake Total 2491.25 / 2491.25 Output Total 1325 / 1325 Balance 1166.25 / 1166.25 General: Alert, Oriented x3, Cooperative HEENT: Atraumatic, PERRLA, EOMI, Normocephalic Neck: Supple, No JVD, Negative Carotid Bruits Lungs: Clear to auscultation, Normal air movement Cardiovascular: Regular rate, No murmurs Abdomen: Bowel Sounds Present, Soft, Non Tender, Non-Distended Extremities: No clubbing, No cyanosis, No edema Skin: - - Right hip postop dressing intact Musculoskeletal: No Tenderness to Palpation of Joints or Extremities Neurological: Cranial nerves II-XII grossly intact, Neuro grossly intact Psych/Mental Status: Normal Affect, Appropriate Microbiology Past 72 Hours 11/22/20 12:51 Interface Orders SARS-CoV-2 Antigen (Rapid) - Final Laboratory Results 11/24/20 06:10: POC Glucose 105 11/24/20 10:44: POC Glucose 153 H Current Medications Acetaminophen (Acetaminophen 500 Mg Tablet) 1,000 mg PO Q8 [facility] Last Admin: 11/24/20 13:55 Dose: 1,000 mg Documented by: Aspirin (Aspirin 81 Mg Tab.Chew) 81 mg PO BIDCM [facility] Atenolol (Atenolol 50 Mg Tablet) 50 mg PO DAILY [facility] Chlorthalidone (Chlorthalidone 50 Mg Tablet) 12.5 mg PO DAILY [facility] Cholecalciferol (Cholecalciferol (Vit D3) 1,000 Unit (25mcg)) 1,000 unit PO DAILYCM [facility] Doxepin HCl (Doxepin Hcl 25 Mg Capsule) 25 mg PO QHS [facility] Enteral Nutritional Formula (Ensure Surgery 237 Ml Liquid) 237 ml PO TIDCM [facility] Famotidine (Famotidine 20 Mg Tablet) 20 mg PO DAILY [facility] Fluticasone Propionate (Fluticasone 0.05% 1 [place] Nasal.Sry) 2 spray NASAL DAILY PRN PRN Reason: ALLERGIES Gemfibrozil (Gemfibrozil 600 Mg Tablet) 600 mg PO BIDAC [facility] Lactated Ringer's () 1,000 mls @ 75 mls/hr IV .[id number] [facility] Stop: 11/24/20 20:24 Last Admin: 11/24/20 14:20 Dose: Not Given Documented by: Lactated Ringer's () 1,000 mls @ 125 mls/hr IV .Q8H [facility] Last Infusion: 11/24/20 16:26 Dose: 125 mls/hr Documented by: Cefazolin Sodium () 1 gm in 50 mls @ 150 mls/hr IV Q8H [facility] Stop: 11/24/20 23:49 Last Infusion: 11/24/20 16:26 Dose: Infused Documented by: Sodium Chloride () 250 mls @ 15 mls/hr IV .[id number] PRN PRN Reason: Saline Flush Insulin Human Lispro (Insulin Lispro 100 Unit/Ml Insuln.Pen) 1 - 6 unit SC Q4H PRN PRN; Protocol PRN Reason: BG>/= 180, SEE PROTOCOL Ketorolac Tromethamine (Ketorolac 15 Mg/Ml Vial) 15 mg IV Q6H PRN PRN PRN Reason: Pain Score 1-5 Stop: 11/26/20 06:47 Meloxicam (Meloxicam 7.5 Mg Tablet) 7.5 mg PO BID [facility] Morphine Sulfate (Morphine 2 Mg/Ml Syringe) 2 - 4 mg IV Q2H PRN PRN PRN Reason: Pain Score 4-10 Morphine Sulfate (Morphine 4 Mg/Ml Syringe) 2 - 4 mg IV Q2H PRN PRN PRN Reason: Pain Score 4-10 Ondansetron HCl (Ondansetron 4 Mg/2 Ml Vial) 4 mg IV Q8H PRN PRN PRN Reason: NAUSEA Oxycodone HCl (Oxycodone 5 Mg Tablet) 5 - 10 mg PO Q4H PRN PRN PRN Reason: Pain Score 4-10 Pantoprazole Sodium (Pantoprazole Sodium 20 Mg Tablet) 20 mg PO DAILY [facility] Potassium Chloride (Potassium Chloride Oral Tablet 10 Meq) 10 meq PO DAILYCM [facility] Promethazine HCl (Promethazine 25 Mg/Ml Syringe) 12.5 mg IM Q6H PRN PRN; Protocol PRN Reason: NAUSEA/VOMITING Senna/Docusate Sodium (Senna/Docusate Sodium 1 Tablet) 2 tablet PO BID [facility] Sodium Chloride (0.9% Saline Lock 10 Ml Syringe) 10 - 40 ml IV UD PRN PRN Reason: SALINE FLUSH Zolpidem Tartrate (Zolpidem Tartrate 5 Mg Tablet) 5 mg PO QHS PRN PRN Reason: insomnia Medical Necessity - Tobacco Use Smoking Status: Never smoker Assessment/Plan All Active Problems (Last Reviewed 09/09/20 @ 13:02 by Delfino Kramer NP, BIOINFORMATICS PROGRAMMER-C) Calculus of gallbladder with acute on chronic cholecystitis without obstruction (Acute) Dyspnea on exertion (Acute) Cholelithiasis (Acute) S/P anal fissurectomy (Acute) 1. Mild nonobstructive CAD-stable, continue aspirin, BP regimen. 2. Hypertension-stable, continue atenolol/chlorthalidone. 3. Hyperlipidemia-on gemfibrozil. 4. GERD-continue PPI. 5. Right hip osteoarthritis status post right hip total replacement postop day #0-management per Ortho. PT/OT. DVT prophylaxis-81 mg twice daily per Ortho This patient was seen by Kenya Kevin NP-Fransico under the supervision of Dr. Kimball. <Blanco Kimball F - Last Filed: 11/24/20 18:36> - Physical Exam Vitals/I&O's: Vital Signs Temp Pulse Resp BP Pulse Ox 97.7 F L 67 18 127/76 H 96 11/24/20 17:23 11/24/20 17:23 11/24/20 17:23 11/24/20 17:23 11/24/20 17:23 Oxygen Flow Rate (L/min) 6 Oxygen Delivery Method Room Air Weight: 186 lb 4.65 oz Body Mass Index (BMI) 36.3 Intake and Output for Last 24 Hours 11/22/20 11/23/20 11/24/20 23:59 23:59 23:59 Intake Total 3171.25 / 3171.25 Output Total 1725 / 1725 Balance 1446.25 / 1446.25 Microbiology Past 72 Hours 11/22/20 12:51 Interface Orders SARS-CoV-2 Antigen (Rapid) - Final Laboratory Results 11/24/20 06:10: POC Glucose 105 11/24/20 10:44: POC Glucose 153 H Current Medications Acetaminophen (Acetaminophen 500 Mg Tablet) 1,000 mg PO Q8 [facility] Last Admin: 11/24/20 13:55 Dose: 1,000 mg Documented by: Aspirin (Aspirin 81 Mg Tab.Chew) 81 mg PO BIDCM [facility] Last Admin: 11/24/20 17:37 Dose: 81 mg Documented by: Atenolol (Atenolol 50 Mg Tablet) 50 mg PO DAILY [facility] Chlorthalidone (Chlorthalidone 50 Mg Tablet) 12.5 mg PO DAILY [facility] Cholecalciferol (Cholecalciferol (Vit D3) 1,000 Unit (25mcg)) [facility] Doxepin HCl (Doxepin Hcl 25 Mg Capsule) 25 mg PO QHS [facility] Enteral Nutritional Formula (Ensure Surgery 237 Ml Liquid) 237 ml PO TIDCM [facility] Last Admin: 11/24/20 17:43 Dose: 237 ml Documented by: Famotidine (Famotidine 20 Mg Tablet) 20 mg PO DAILY [facility] Fluticasone Propionate (Fluticasone 0.05% 1 [place] Nasal.Sry) 2 spray NASAL DAILY PRN PRN Reason: ALLERGIES Gemfibrozil (Gemfibrozil 600 Mg Tablet) 600 mg PO BIDAC [facility] Last Admin: 11/24/20 17:37 Dose: 600 mg Documented by: Lactated Ringer's () 1,000 mls @ 75 mls/hr IV .[id number] [facility] Stop: 11/24/20 20:24 Last Admin: 11/24/20 14:20 Dose: Not Given Documented by: Lactated Ringer's () 1,000 mls @ 125 mls/hr IV .Q8H [facility] Last Infusion: 11/24/20 16:26 Dose: 125 mls/hr Documented by: Cefazolin Sodium () 1 gm in 50 mls @ 150 mls/hr IV Q8H [facility] Stop: 11/24/20 23:49 Last Infusion: 11/24/20 16:26 Dose: Infused Documented by: Sodium Chloride () 250 mls @ 15 mls/hr IV .[id number] PRN PRN Reason: Saline Flush Insulin Human Lispro (Insulin Lispro 100 Unit/Ml Insuln.Pen) 1 - 6 unit SC Q4H PRN PRN; Protocol PRN Reason: BG>/= 180, SEE PROTOCOL Ketorolac Tromethamine (Ketorolac 15 Mg/Ml Vial) 15 mg IV Q6H PRN PRN PRN Reason: Pain Score 1-5 Stop: 11/26/20 06:47 Meloxicam (Meloxicam 7.5 Mg Tablet) 7.5 mg PO BID [facility] Morphine Sulfate (Morphine 2 Mg/Ml Syringe) 2 - 4 mg IV Q2H PRN PRN PRN Reason: Pain Score 4-10 Morphine Sulfate (Morphine 4 Mg/Ml Syringe) 2 - 4 mg IV Q2H PRN PRN PRN Reason: Pain Score 4-10 Ondansetron HCl (Ondansetron 4 Mg/2 Ml Vial) 4 mg IV Q8H PRN PRN PRN Reason: NAUSEA Oxycodone HCl (Oxycodone 5 Mg Tablet) 5 - 10 mg PO Q4H PRN PRN PRN Reason: Pain Score 4-10 Pantoprazole Sodium (Pantoprazole Sodium 20 Mg Tablet) 20 mg PO DAILY [facility] Potassium Chloride (Potassium Chloride Oral Tablet 10 Meq) 10 meq PO DAILYCM [facility] Promethazine HCl (Promethazine 25 Mg/Ml Syringe) 12.5 mg IM Q6H PRN PRN; Protocol PRN Reason: NAUSEA/VOMITING Senna/Docusate Sodium (Senna/Docusate Sodium 1 Tablet) 2 tablet PO BID [facility] Sodium Chloride (0.9% Saline Lock 10 Ml Syringe) 10 - 40 ml IV UD PRN PRN Reason: SALINE FLUSH Zolpidem Tartrate (Zolpidem Tartrate 5 Mg Tablet) 5 mg PO QHS PRN PRN Reason: insomnia Addendum: Dr. Kimball I personally examined the patient and reviewed the chart. I agree with the above. 75-year-old female presenting to the hospital for an elective right total hip replacement. She did well after surgery, denies any significant pain. She is able to move her toes and has sensation in her feet. She has mild nonobstructive CAD as well as hypertension, would recommend continuing her blood pressure medications as well as her aspirin. We will continue to monitor her c reatinine secondary to her diuretic and continue with IV fluids. OBSV E&M: [id number] Subsequent observation care L3
[2020-11-24] MEDS: Aspirin 81 MG TAB.CHEW PO (17:37)
[2020-11-24] MEDS: Gemfibrozil 600 MG Tablet PO (17:37)
[2020-11-24] MEDS: Ensure Surgery 237 ML LIQUID PO (17:43)
[2020-11-24] MEDS: Doxepin Hcl 25 MG Capsule PO (21:13)
[2020-11-24] MEDS: Senna/Docusate Sodium 1 Tablet 2 TABLET PO (21:13)
[2020-11-24] MEDS: oxyCODONE 5 MG Tablet PO (23:44)
[2020-11-25 02:12] VITALS: BP 120/52; PULSE 68; RESP 18; TEMP 36.6; O2SAT 96
[2020-11-25] MEDS: oxyCODONE 5 MG Tablet PO ×3 (02:26→14:10)
[2020-11-25] MEDS: Acetaminophen 500 MG Tablet 1000 MG PO ×2 (06:20→14:06)
[2020-11-25 06:44] LABS: Hematocrit 35.3 % (37-47); Hemoglobin 11.1 g/dL (12.0-15.0); Mean Corp Hgb Conc 31.4 g/dL (32-36); Mean Corpuscular Hgb 30.2 pg (27.0-32.0); Mean Corpuscular Volume 95.9 fL (81-99); Mean Platelet Vol. 10.4 fl (6.2-12.0); Platelet Count 208 K/mm3 (150-450); RBC Distribution Width CV 12.5 % (11.6-14.6); RBC Distribution Width SD 43.5 fl (35.1-43.9); Red Blood Count 3.68 M/mm3 (4.2-5.4); White Blood Count 12.5 K/mm3 (4.4-11.0)
[2020-11-25 07:14] LABS: Anion Gap 6 (5-15); BUN 16 mg/dL (7-18); BUN/Creat Ratio 23.7 RATIO (10-20); Calcium,Total 8.7 mg/dL (8.5-10.1); Chloride 102 mmol/L (98-107); Creatinine, Serum 0.68 mg/dL (0.55-1.02); EST Glomerular Filtration Rate 90 mL/min (>60); Est Glom Filt Rate - Afr Amer 109 mL/min (>60); Estimated Creatinine Clearance 35.45 ml/min; Glucose 108 mg/dL (74-106); Potassium 2.9 mmol/L (3.5-5.1); Sodium Level 138 mmol/L (136-145)
[2020-11-25] MEDS: Gemfibrozil 600 MG Tablet PO (07:25)
[2020-11-25 08:15] VITALS: PULSE 80
[2020-11-25 08:40] VITALS: BP 123/72; PULSE 73; RESP 15; TEMP 36.8; O2SAT 94
--- NOTE | 2020-11-25 09:18 | PN.ORTHO_ITS ---
Subjective: The patient was sitting in bedside chair upon examination. Patient denies any chest pain, shortness of breath, dizziness, lightheadedness, nausea or vomiting, or calf pain. Pain is controlled on medications. No adverse overnight events. Patient tolerated therapy well was able to walk over 100 feet. Discussed in detail with the patient about discharge plans. Patient's insurance does not cover the rehab unit. She does not wish to go to a skilled nursing. Patient would like to have home health physical therapy set up. She does live at home alone. Objective: Vital signs stable and afebrile. Patient is able to plantarflex and dorsiflex actively. Sensation is intact to light touch to saphenous, sural, superficial and deep peroneal, and tibial distribution. Dressing is clean dry and intact. Negative Homans bilaterally, negative signs and symptoms of DVT. - Physical Exam Vitals/I&O's: Vital Signs Temp Pulse Resp BP Pulse Ox 98.3 F 73 15 123/72 H 94 11/25/20 08:40 11/25/20 08:40 11/25/20 08:40 11/25/20 08:40 11/25/20 08:40 Oxygen Flow Rate (L/min) 6 Oxygen Delivery Method Room Air Weight: 84.5 kg Body Mass Index (BMI) 36.3 Intake and Output for Last 24 Hours 11/23/20 11/24/20 11/25/20 23:59 23:59 23:59 Intake Total 4400.42 / 4400.42 361.25 / 361.25 Output Total 5 / 2024 250 / 250 Balance 2375.42 / 2375.42 111.25 / 111.25 General: Alert, Oriented x3, Cooperative, No apparent distress Microbiology Past 72 Hours 11/22/20 12:51 Interface Orders SARS-CoV-2 Antigen (Rapid) - Final Laboratory Results 11/24/20 10:44: POC Glucose 153 H 11/25/20 06:38: WBC 12.5 H, RBC 3.68 L, Hgb 11.1 L, Hct 35.3 L, MCV 95.9, MCH 30.2, MCHC 31.4 L, RDW Std Deviation 43.5, RDW Coeff of Alhaji 12.5, Plt Count 208, MPV 10.4 11/25/20 06:38: Sodium 138, Potassium 2.9 L, Chloride 102, Carbon Dioxide 30.0, Anion Gap 6, BUN 16, Creatinine 0.68, Estim Creat Clear Calc 35.45, Est GFR (MDRD) Af Amer 109, Est GFR (MDRD) Non-Af 90, BUN/Creatinine Ratio 23.7 H, Glucose 108 H, Calcium 8.7 Current Medications Acetaminophen (Acetaminophen 500 Mg Tablet) 1,000 mg PO Q8 [facility] Last Admin: 11/25/20 06:20 Dose: 1,000 mg Documented by: Aspirin (Aspirin 81 Mg Tab.Chew) 81 mg PO BIDCM [facility] Last Admin: 11/24/20 17:37 Dose: 81 mg Documented by: Atenolol (Atenolol 50 Mg Tablet) 50 mg PO DAILY [facility] Chlorthalidone (Chlorthalidone 50 Mg Tablet) 12.5 mg PO DAILY [facility] Cholecalciferol (Cholecalciferol (Vit D3) 1,000 Unit (25mcg)) [facility] Doxepin HCl (Doxepin Hcl 25 Mg Capsule) 25 mg PO QHS [facility] Last Admin: 11/24/20 21:13 Dose: 25 mg Documented by: Enteral Nutritional Formula (Ensure Surgery 237 Ml Liquid) 237 ml PO TIDCM [facility] Last Admin: 11/24/20 17:43 Dose: 237 ml Documented by: Famotidine (Famotidine 20 Mg Tablet) 20 mg PO DAILY [facility] Fluticasone Propionate (Fluticasone 0.05% 1 [place] Nasal.Sry) 2 spray NASAL DAILY PRN PRN Reason: ALLERGIES Gemfibrozil (Gemfibrozil 600 Mg Tablet) 600 mg PO BIDAC [facility] Last Admin: 11/25/20 07:25 Dose: 600 mg Documented by: Sodium Chloride () 250 mls @ 15 mls/hr IV .[id number] PRN PRN Reason: Saline Flush Insulin Human Lispro (Insulin Lispro 100 Unit/Ml Insuln.Pen) 1 - 6 unit SC Q4H PRN PRN; Protocol PRN Reason: BG>/= 180, SEE PROTOCOL Ketorolac Tromethamine (Ketorolac 15 Mg/Ml Vial) 15 mg IV Q6H PRN PRN PRN Reason: Pain Score 1-5 Stop: 11/26/20 06:47 Meloxicam (Meloxicam 7.5 Mg Tablet) 7.5 mg PO BID [facility] Morphine Sulfate (Morphine 2 Mg/Ml Syringe) 2 - 4 mg IV Q2H PRN PRN PRN Reason: Pain Score 4-10 Morphine Sulfate (Morphine 4 Mg/Ml Syringe) 2 - 4 mg IV Q2H PRN PRN PRN Reason: Pain Score 4-10 Ondansetron HCl (Ondansetron 4 Mg/2 Ml Vial) 4 mg IV Q8H PRN PRN PRN Reason: NAUSEA Oxycodone HCl (Oxycodone 5 Mg Tablet) 5 - 10 mg PO Q4H PRN PRN PRN Reason: Pain Score 4-10 Last Admin: 11/25/20 08:29 Dose: 5 mg Documented by: Pantoprazole Sodium (Pantoprazole Sodium 20 Mg Tablet) 20 mg PO DAILY [facility] Potassium Chloride (Potassium Chloride Oral Tablet 10 Meq) 10 meq PO DAILYCM [facility] Promethazine HCl (Promethazine 25 Mg/Ml Syringe) 12.5 mg IM Q6H PRN PRN; Protocol PRN Reason: NAUSEA/VOMITING Senna/Docusate Sodium (Senna/Docusate Sodium 1 Tablet) 2 tablet PO BID [facility] Last Admin: 11/24/20 21:13 Dose: 2 tablet Documented by: Sodium Chloride (0.9% Saline Lock 10 Ml Syringe) 10 - 40 ml IV UD PRN PRN Reason: SALINE FLUSH Zolpidem Tartrate (Zolpidem Tartrate 5 Mg Tablet) 5 mg PO QHS PRN PRN Reason: insomnia Medical Necessity - Tobacco Use Smoking Status: Never smoker Assessment/Plan All Active Problems (Last Reviewed 09/09/20 @ 13:02 by Delfino Kramer MOLD WASHER, MOLD WASHER-C) Calculus of gallbladder with acute on chronic cholecystitis without obstruction (Acute) Dyspnea on exertion (Acute) Cholelithiasis (Acute) S/P anal fissurectomy (Acute) 1. S/P direct anterior right total hip arthroplasty POD #1 2. Continue Pain Medications: Tylenol, meloxicam, oxycodone 3. DVT Prophylaxis: Take 81 mg aspirin twice daily for 4 weeks postoperatively for DVT prophylaxis 4. PT/OT: Weightbearing as tolerated 5. H & H: 11.1/35.3, asymptomatic. Postoperative anemia secondary to acute blood loss from surgery without any intra operative complications. 6. Reactive leukocytosis: Currently 12.5, afebrile. Patient did receive Decadron intraoperatively 7. Encouraged Incentive Spirometry 8. Continue postoperative medical management per medicine 9. Disposition: Plan will be for possible discharge home today as long as patient tolerates physical therapy and pain is well controlled. We will have case management involved setting up home health physical therapy. Prescriptions will be sent to [facility] pharmacy. Patient will follow-up per postop instructions. I have reviewed the [place] Automated Rx Reporting System (OARRS) report for this patient for refill pattern and other prescriber involvement as part of the appropriate surveillance for the provision of acute and chronic controlled medications. The report was requested and reviewed on the date of this entry and was considered in the prescribing process.
--- NOTE | 2020-11-25 09:29 | DCINST_ITS ---
Discharge Diet: No Restrictions Discharge Activity: May Not Drive - while taking narcotic pain medications. May shower in (days): 1 - Okay to shower if dressing is intact to skin. Turn dressing away from water. Do not submerge underwater for 6 weeks postoperatively. Ice area for (Minutes): 20 - Every 1-2 hours while awake Weight Bearing Status: Weight bearing as tolerated Elevate: Operative Extremity Additional Activity Instructions:: Wear elastic stockings for 2 weeks. DO NOT use alcohol with narcotic pain medication. DO NOT make important decisions while taking narcotic medication. If you have problems with taking your medication (rash, itching, nausea, etc.) call the office at once. Call your doctor if your incision/area has: Increased Pain/ Swelling, Increased Redness, Foul Smelling Discharge Call your doctor if you observe: Fever of 101 or Higher Remove Dressing in (days):: 4 - Okay to remove dressing on November 29, 2020 Additional Instructions: Follow [facility] Post-op Instructions. Once postoperative dressing has been removed only use gentle soap and water over the incision. Do not use any ointments, Neosporin, salves, alcohol pads over the incision for 6 weeks postoperatively. Do not submerge underwater for 6 weeks postoperatively. Allergies/Adverse Reactions: Allergies ampicillin Allergy (Verified 11/24/20 05:59) Rash lisinopril Allergy (Verified 11/24/20 05:59) Rash Penicillins [PCN] Allergy (Verified 11/24/20 05:59) Rash simvastatin Adverse Reaction (Severe, Verified 11/24/20 05:59) Myalgias, flu like sx Medications to take at Discharge Leticia Allergy 180 mg PO PRN PRN 05/17/18 Atenolol/Chlorthalidone [Atenolol-Chlorthalidone 100-25] 0.5 tab PO DAILY 05/17/18 Eszopiclone 3 mg PO QHS MDD fibromalgya 05/17/18 Fluticasone 0.05% 2 spry NASAL DAILY PRN 05/17/18 Omeprazole 20 mg PO DAILY 05/17/18 Potassium Chloride 1 tab PO DAILY 05/17/18 Vits A,C,E/Lutein/Minerals [Healthy Eyes Caplet] 2 tab PO DAILY 05/17/18 Calcium Carbonate/Vitamin D3 [Calcium 600-Vit D3 500 Softgel] 1 ea PO DAILY 05/29/18 Multivit-Min/Iron/Folic/Lutein [Centrum Silver Women Tablet] 1 ea PO DAILY 05/29/18 Oat Bran 1,700 mg PO DAILY 05/29/18 Vitamin E 400 unit PO DAILY 05/29/18 cholecalciferol (vitamin D3) 25 mcg (1,000 unit) tablet 1,000 unit PO DAILY 09/12/18 doxepin 25 mg capsule 25 mg PO QHS 05/20/20 gemfibrozil 600 mg tablet 600 mg PO BID #180 tab 06/03/20 meloxicam 7.5 mg tablet 7.5 mg PO PRN PRN 08/20/20 Acetaminophen [Tylenol] 1,000 mg PO Q8 #100 tab 11/25/20 Aspirin [Aspirin, Baby] 81 mg PO BIDCM tab.chew 11/25/20 Oxycodone [Oxyir] 5 - 10 mg PO Q4H PRN PRN 5 Days #60 tablet 11/25/20 The following prescriptions were given: Oxycodone [Oxyir] 5 - 10 mg PO Q4H PRN PRN 5 Days #60 tablet PRN Reason: Pain Score 4-10 Transmission Status: Sent to [facility] Acetaminophen [Tylenol] 1,000 mg PO Q8 #100 tab Transmission Status: Pending to [facility] Primary Care Physician: Melany Russo MD [Primary Care Provider] - Test Results: Test results from this visit will be discussed in further detail at your follow- up appointment, if applicable. Please Follow Up With: Chavez Cristobal PA-C When: 12/08/20 @ 9:30 am
[2020-11-25] MEDS: Aspirin 81 MG TAB.CHEW PO (09:33)
[2020-11-25] MEDS: Potassium Chloride Oral Tablet 10 MEQ PO (09:34)
[2020-11-25] MEDS: Famotidine 20 MG Tablet PO (09:35)
[2020-11-25] MEDS: Senna/Docusate Sodium 1 Tablet 2 TABLET PO (09:35)
[2020-11-25] MEDS: Chlorthalidone 50 MG Tablet 12.5 MG PO (09:35)
[2020-11-25] MEDS: Pantoprazole Sodium 20 MG Tablet PO (09:35)
[2020-11-25] MEDS: Atenolol 50 MG Tablet PO (09:36)
--- NOTE | 2020-11-25 10:30 | CASEMGMT ---
RN KARRIE Face to Face with patient for initial transition planning/care coordination assessment. RN CM introduced self and role at [facility]. Patient sitting in chair, alert and oriented, friend at bedside. Patient willing to participate in assessment and is able to answer all questions appropriately. Care providers, pharmacy, and demographics verified. Patient wishes to discharge home and is interested in HHC. Patient states she has no further needs or concerns at this time. CM to follow for discharge planning needs that may arise. PCP: Rafaela Specialists: collin Carmen; Malu boilermaker industrial boilers Preferred Pharmacy: [facility] Insurance: [employer] [facility] Prescription Benefit: yes Living Will/HPOA: yes, cousin Juanita Atkinson LNOK: cousins Living Arrangements: Patient lives alone in first floor apartment with 1 step to enter. Patient states she is independent at home prior to surgery. Transportation: cousins DME/HHC: patient states she has walker, cane, and grab bars at home. Patient denies previous HHC. CM to provided patient with HHC list. Disposition Plan: Patient to discharge home with HHC, family support, and follow-up plans in place. Crystal RAPHAEL, RN, CM
--- NOTE | 2020-11-25 11:47 | CASEMGMT ---
Addendum entered by Leda Hall 11/25/20 13:08: Jeanette from [facility] returned call. Patient will have start of care on Sunday. Patient is aware. She denies further questions or concerns at this time. Original Note: MARGOT YOON in to discuss HHC with patient. Patient was provided a list of HHC providers including quality and resource use data and consistent with the patient?s preferred geographic region, medical needs, and insurance network. The patient?s preferred provider [facility], second choice is [facility]. MARGOT YOON called Jeanette at [facility] and left message with referral information for SN, PT, OT, NON DESTRUCTIVE TESTING SCIENTIST and TUBE MAKING MACHINE OPERATOR. Requested returned call for acceptance. Also discussed KINGSLEY form with patient. MARGOT YOON explained KINGSLEY form, patient voiced understanding. Patient signed KINGSLEY form and filed in chart. Patient provided with copy of signed KINGSLEY form. Patient had no further questions or concerns at this time.
--- NOTE | 2020-11-25 12:21 | PHA.DC.MC ---
Pharmacy Service has performed discharge medication reconciliation and counseling for this patient. The patient was counseled on the following discharge medications and changes in medications for homegoing were reviewed. 1. ASPIRIN 2. TYLENOL 3. OXYCODONE The Reason for Use, instructions for use, and potential side effects were reviewed for all new medications. The patient's questions regarding all of their medications were answered. The patient was able to verbally demonstrate an understanding of their discharge medications. Home Medications Leticia Allergy 180 mg PO PRN PRN 05/17/18 Atenolol/Chlorthalidone [Atenolol-Chlorthalidone 100-25] 0.5 tab PO DAILY 05/17/18 Eszopiclone 3 mg PO QHS MDD fibromalgya 05/17/18 Fluticasone 0.05% 2 spry NASAL DAILY PRN 05/17/18 Omeprazole 20 mg PO DAILY 05/17/18 Potassium Chloride 1 tab PO DAILY 05/17/18 Vits A,C,E/Lutein/Minerals [Healthy Eyes Caplet] 2 tab PO DAILY 05/17/18 Calcium Carbonate/Vitamin D3 [Calcium 600-Vit D3 500 Softgel] 1 ea PO DAILY 05/29/18 Multivit-Min/Iron/Folic/Lutein [Centrum Silver Women Tablet] 1 ea PO DAILY 05/29/18 Oat Bran 1,700 mg PO DAILY 05/29/18 Vitamin E 400 unit PO DAILY 05/29/18 cholecalciferol (vitamin D3) 25 mcg (1,000 unit) tablet 1,000 unit PO DAILY 09/12/18 doxepin 25 mg capsule 25 mg PO QHS 05/20/20 gemfibrozil 600 mg tablet 600 mg PO BID #180 tab 06/03/20 meloxicam 7.5 mg tablet 7.5 mg PO PRN PRN 08/20/20 Acetaminophen [Tylenol] 1,000 mg PO Q8 #100 tab 11/25/20 Aspirin [Aspirin, Baby] 81 mg PO BIDCM tab.chew 11/25/20 Oxycodone [Oxyir] 5 - 10 mg PO Q4H PRN PRN 5 Days #60 tab 11/25/20 The patient's discharge medication list was reviewed for discrepancies and discrepancies were resolved.
[2020-11-25] MEDS: Ensure Surgery 237 ML LIQUID PO (12:44)
--- NOTE | 2020-11-25 12:45 | CASEMGMT ---
MARGOT YOON Face to Face with patient for initial transition planning/care coordination assessment. RN KARRIE introduced self and role at [facility]. Patient sitting up in chair with friend Sonya at bedside, alert and oriented. Patient willing to participate in assessment and is able to answer all questions appropriately. Care providers, pharmacy, and demographics verified. Patient wishes to discharge home with [facility]. Patient states she has no further needs or concerns at this time. CM to follow for discharge planning needs that may arise. PCP: Rafaela Specialists: collin Carmen; Malu, pipe line inspector Preferred Pharmacy: [facility]. Patient wishes to use [facility] for meds at discharge. Insurance: [employer] Medicare PPO Prescription Benefit: yes Living Will/HPOA: yes, yes, Juanita Atkinson, cousin AMANDA: Cousin Juanita Living Arrangements: Patient lives alone in an apartment with one step to enter. Patient states she was independent at home. Transportation: cousin DME/HHC: Patient states she has a cane, walker and grab bars. Patient is interested in HHC at discharge. Disposition Plan: Patient to discharge home with C SN, PT, OT, TOP CLEANER and MACHINE WELT BUTTER and family support, follow up plans in place.
[2020-11-25 14:13] VITALS: BP 98/56; PULSE 62; RESP 16; TEMP 36.8; O2SAT 97
--- NOTE | 2020-11-25 15:39 | PCM.PN.HOSP ---
Reason for Visit: Follow-up on right total hip replacement Subjective: Patient was seen and examined. Denied any new complaints. Pain is fairly controlled. Objective: Physical exam: General: Alert, Oriented x3, Cooperative HEENT: Atraumatic, PERRLA, EOMI, Normocephalic Neck: Supple, No JVD, Negative Carotid Bruits Lungs: Clear to auscultation, Normal air movement Cardiovascular: Regular rate, No murmurs Abdomen: Bowel Sounds Present, Soft, Non Tender, Non-Distended Extremities: No clubbing, No cyanosis, No edema Skin: - - Right hip postop dressing intact Musculoskeletal: No Tenderness to Palpation of Joints or Extremities Neurological: Cranial nerves II-XII grossly intact, Neuro grossly intact Psych/Mental Status: Normal Affect, Appropriate Vitals/I&O's: Vital Signs Temp Pulse Resp BP Pulse Ox 98.2 F 62 16 98/56 L 97 11/25/20 14:13 11/25/20 14:13 11/25/20 14:13 11/25/20 14:13 11/25/20 14:13 Oxygen Flow Rate (L/min) 6 Oxygen Delivery Method Room Air Weight: 84.5 kg Body Mass Index (BMI) 36.3 Intake and Output for Last 24 Hours 11/23/20 11/24/20 11/25/20 23:59 23:59 23:59 Intake Total 4400.42 / 4400.42 361.25 / 361.25 Output Total 2024 / 2024 250 / 250 Balance 2375.42 / 2375.42 111.25 / 111.25 Microbiology Past 72 Hours 11/22/20 12:51 Interface Orders SARS-CoV-2 Antigen (Rapid) - Final Laboratory Results 11/25/20 06:38: WBC 12.5 H, RBC 3.68 L, Hgb 11.1 L, Hct 35.3 L, MCV 95.9, MCH 30.2, MCHC 31.4 L, RDW Std Deviation 43.5, RDW Coeff of Alhaji 12.5, Plt Count 208, MPV 10.4 11/25/20 06:38: Sodium 138, Potassium 2.9 L, Chloride 102, Carbon Dioxide 30.0, Anion Gap 6, BUN 16, Creatinine 0.68, Estim Creat Clear Calc 35.45, Est GFR (MDRD) Af Amer 109, Est GFR (MDRD) Non-Af 90, BUN/Creatinine Ratio 23.7 H, Glucose 108 H, Calcium 8.7 Current Medications Acetaminophen (Acetaminophen 500 Mg Tablet) 1,000 mg PO Q8 [facility] Last Admin: 11/25/20 14:06 Dose: 1,000 mg Documented by: Aspirin (Aspirin 81 Mg Tab.Chew) 81 mg PO BIDCM [facility] Last Admin: 11/25/20 09:33 Dose: 81 mg Documented by: Atenolol (Atenolol 50 Mg Tablet) 50 mg PO DAILY [facility] Last Admin: 11/25/20 09:36 Dose: 50 mg Documented by: Chlorthalidone (Chlorthalidone 50 Mg Tablet) 12.5 mg PO DAILY [facility] Last Admin: 11/25/20 09:35 Dose: 12.5 mg Documented by: Cholecalciferol (Cholecalciferol (Vit D3) 1,000 Unit (25mcg)) 1,000 unit PO DAILYCM [facility] Last Admin: 11/25/20 09:34 Dose: 1,000 unit Documented by: Doxepin HCl (Doxepin Hcl 25 Mg Capsule) 25 mg PO QHS [facility] Last Admin: 11/24/20 21:13 Dose: 25 mg Documented by: Enteral Nutritional Formula (Ensure Surgery 237 Ml Liquid) 237 ml PO TIDCM [facility] Last Admin: 11/25/20 12:44 Dose: 237 ml Documented by: Famotidine (Famotidine 20 Mg Tablet) 20 mg PO DAILY [facility] Last Admin: 11/25/20 09:35 Dose: 20 mg Documented by: Fluticasone Propionate (Fluticasone 0.05% 1 [place] Nasal.Sry) 2 spray NASAL DAILY PRN PRN Reason: ALLERGIES Gemfibrozil (Gemfibrozil 600 Mg Tablet) 600 mg PO BIDAC [facility] Last Admin: 11/25/20 07:25 Dose: 600 mg Documented by: Sodium Chloride () 250 mls @ 15 mls/hr IV .[id number] PRN PRN Reason: Saline Flush Insulin Human Lispro (Insulin Lispro 100 Unit/Ml Insuln.Pen) 1 - 6 unit SC Q4H PRN PRN; Protocol PRN Reason: BG>/= 180, SEE PROTOCOL Ketorolac Tromethamine (Ketorolac 15 Mg/Ml Vial) 15 mg IV Q6H PRN PRN PRN Reason: Pain Score 1-5 Stop: 11/26/20 06:47 Meloxicam (Meloxicam 7.5 Mg Tablet) 7.5 mg PO BID [facility] Morphine Sulfate (Morphine 2 Mg/Ml Syringe) 2 - 4 mg IV Q2H PRN PRN PRN Reason: Pain Score 4-10 Morphine Sulfate (Morphine 4 Mg/Ml Syringe) 2 - 4 mg IV Q2H PRN PRN PRN Reason: Pain Score 4-10 Ondansetron HCl (Ondansetron 4 Mg/2 Ml Vial) 4 mg IV Q8H PRN PRN PRN Reason: NAUSEA Oxycodone HCl (Oxycodone 5 Mg Tablet) 5 - 10 mg PO Q4H PRN PRN PRN Reason: Pain Score 4-10 Last Admin: 11/25/20 14:10 Dose: 5 mg Documented by: Pantoprazole Sodium (Pantoprazole Sodium 20 Mg Tablet) 20 mg PO DAILY [facility] Last Admin: 11/25/20 09:35 Dose: 20 mg Documented by: Potassium Chloride (Potassium Chloride Oral Tablet 10 Meq) [facility] Last Admin: 11/25/20 09:34 Dose: 10 meq Documented by: Promethazine HCl (Promethazine 25 Mg/Ml Syringe) 12.5 mg IM Q6H PRN PRN; Protocol PRN Reason: NAUSEA/VOMITING Senna/Docusate Sodium (Senna/Docusate Sodium 1 Tablet) 2 tablet PO BID [facility] Last Admin: 11/25/20 09:35 Dose: 2 tablet Documented by: Sodium Chloride (0.9% Saline Lock 10 Ml Syringe) 10 - 40 ml IV UD PRN PRN Reason: SALINE FLUSH Zolpidem Tartrate (Zolpidem Tartrate 5 Mg Tablet) 5 mg PO QHS PRN PRN Reason: insomnia STROKE Vital Signs/Narrative: Vital Signs Temp Pulse Resp BP Pulse Ox 11/25/20 14:13 98.2 F 62 16 98/56 L 97 Medical Necessity - Tobacco Use Smoking Status: Never smoker Assessment/Plan All Active Problems (Last Reviewed 09/09/20 @ 13:02 by Delfino Kramer ROBOTICS ENGINEER, ROBOTICS ENGINEER-C) Calculus of gallbladder with acute on chronic cholecystitis without obstruction (Acute) Dyspnea on exertion (Acute) Cholelithiasis (Acute) S/P anal fissurectomy (Acute) 1. Postop day #1 status post right total hip replacement Continue with current pain medications, subsequent wound management by podiatry 2. Hypertension, controlled, continue home atenolol/chlorthalidone 3. Hyperlipidemia, continue gemfibrozil 4. GERD, continue PPI 5. DT prophylaxis?per orthopedic recommendation?aspirin twice daily OBSV E&M: 46087 Subsequent observation care L3
--- NOTE | 2020-11-25 16:06 | NURSING ---
Late entry: Student documentation reviewed.
== END 2020-11-25 15:44 | disposition home health service (06) ==
LOC: SDC 12:32 → MS3 12:32
PROVIDERS: Admitting Provider Specialist; PCP Internal Medicine; Referring Provider Specialist; Visit Provider Internal Medicine
PROC: (CPT 27284; principal; 2020-11-24 07:05)
DX: M16.11 Unilateral primary osteoarthritis, right hip (principal); M79.7 Fibromyalgia; K21.9 Gastro-esophageal reflux disease without esophagitis; F32.9 Major depressive disorder, single episode, unspecified; I10 Essential (primary) hypertension; Z79.899 Other long term (current) drug therapy; Z79.82 Long term (current) use of aspirin; I25.10 Atherosclerotic heart disease of native coronary artery without angina pectoris; E78.5 Hyperlipidemia, unspecified; Z20.828 Contact with and (suspected) exposure to other viral communicable diseases
CPT/HCPCS: 27130; 36415; 73501; 73502; 76000; 80048; 82040; 82962; 85025; 85027; 87081; 87426; 96361; 96365; 96366; 97110; 97116; 97162; 97167; 97530; 97535; 99218; 99251; C1776; C9803; J7120; G0378; G0379; G0463

== ENCOUNTER → 2023-01-08 | Outpatient (CLI) | payer MEDICARE, SELFPAY ==
--- NOTE | 2023-01-08 12:26 | NEURO ---
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 Findings: Nerve conduction studies were performed in the right upper extremity. The right median motor study recording the abductor pollicis brevis showed a markedly decreased amplitude, prolonged distal latency and borderline conduction velocity. The right ulnar motor study recording the abductor digiti minimi showed a normal amplitude, normal distal latency and normal conduction velocity. No conduction block or focal slowing was present across the elbow. The right median sensory response recording digit two was absent. The right ulnar sensory response recording digit five showed a normal amplitude, latency and conduction velocity. The right radial sensory response recording over the extensor snuff box showed a normal amplitude, latency and conduction velocity. Right median-ulnar lumbrical / interosseous motor latencies showed a prolonged median latency compared to the ulnar. Needle EMG of the right upper extremity muscles was performed. Active denervation was seen in the abductor pollicis brevis muscle. Motor units were slightly long duration, polyphasic and with reduced recruitment. In the flexor pollicis longus and flexor carpi radialis, motor unit morphology, activation and recruitment patterns were normal. Impression: This is a markedly abnormal study. 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 The denervation of the thenar muscles with sparing of the proximal median and anterior interosseous territory would suggest a distal localization, however, this is not confirmatory. Neuromuscular ultrasound of the median nerve could be considered for further characterization and localization. Rodo Henderson D.O. Multi Select Codes Neurology Neurology Interp Codes: 42624-33 [facility] [place] done w/nerv tst bustillos (interp) and 36352-71 [employer] [facility] cndj test 7-8 studies (interp)
== END | disposition home or self-care (01) ==
PROVIDERS: PCP Internal Medicine; Referring Provider Physician Assistant; Visit Provider Physician Assistant
DX: R20.2 Paresthesia of skin (principal)
CPT/HCPCS: 95885; 95910

== ENCOUNTER 2023-02-13 19:28 | Emergency (ER) | payer MEDICARE, SELFPAY ==
[2023-02-13 19:28] VITALS: BP 159/75; PULSE 77; RESP 15; TEMP 36.6; O2SAT 96; BMI 35.9
--- NOTE | 2023-02-13 21:14 | EDS_ITS ---
HPI HPI - GI History of Present Illness Chief Complaint: Constipation Narrative Narrative: 77-year-old female with recent carpal tunnel surgery on the right wrist presenting with constipation. She has been on narcotic pain medication. Since Sunday she has been trying to have a bowel movement. She has had MiraLAX Sunday and yesterday. She took 2 doses today. She has had 2 enemas. She states that she had 2 small balls out. She does not any abdominal pain. History of cholecystectomy and anal fissurectomy. No fevers, chills. No nausea or vomiting. PFSH PFS Medical History Carpal tunnel syndrome on right Cellulitis of left upper arm Cholelithiasis Essential hypertension Fibromyalgia GERD (gastroesophageal reflux disease) Hyperlipidemia Macular degeneration Nonobstructive atherosclerosis of coronary artery Home Medications Leticia Allergy 180 mg PO PRN PRN allergy 05/17/18 [History Last Taken Unknown] atenolol 100 mg-chlorthalidone 25 mg tablet 0.5 tab PO DAILY bp 05/17/18 [History Last Taken 11/24/20 04:00 0.5 TAB] eszopiclone 3 mg tablet 1.5 mg PO QHS 05/17/18 [History Last Taken Unknown] omeprazole 20 mg capsule,delayed release 20 mg PO DAILY reflux 05/17/18 [History Last Taken 11/24/20 04:00 20 MG] potassium chloride 10 mEq capsule,extended release 1 tab PO DAILY 05/17/18 [History Last Taken Unknown] vit A 300 mcg-C 200 mg-E 27 mg-lutein 2 mg and minerals tablet 2 tab PO DAILY eye health 05/17/18 [History Last Taken Unknown] Oat Bran 1,700 mg PO DAILY supplement 05/29/18 [History Last Taken Unknown] calcium carbonate 600 mg-vitamin D3 12.5 mcg (500 unit) capsule 1 ea PO DAILY supplement 05/29/18 [History Last Taken Unknown] multivit with bamixyqv-qoib-OX-lutein 8 mg iron-400 mcg-300 mcg tablet 1 ea PO DAILY supplement 05/29/18 [History Last Taken Unknown] vitamin E 268 mg (400 unit) capsule 400 unit PO DAILY supplement 05/29/18 [History Last Taken Unknown] cholecalciferol (vitamin D3) 25 mcg (1,000 unit) tablet 1,000 unit PO DAILY 09/12/18 [History Last Taken Unknown] doxepin 25 mg capsule 25 mg PO QHS 05/20/20 [History Last Taken Unknown] gemfibrozil 600 mg tablet 600 mg PO BID #180 tabs 06/03/20 [Rx Last Taken Unknown] acetaminophen 500 mg tablet 1,000 mg PO Q8 #100 tabs 11/25/20 [Rx Last Taken Unknown] aspirin 81 mg chewable tablet 81 mg PO DAILY 02/13/23 [History Last Taken Unknown] peg 3350-electrolytes 236 gram-22.74 gram-6.74 gram-5.86 gram solution (GaviLyte-G) 240 ml PO Q10M PRN #4,000 mL 02/13/23 [Rx Last Taken Unknown] senna 374 mg tablet mg PO 02/13/23 [History Last Taken Unknown] Allergy/AdvReac Type Severity Reaction Status Date / Time ampicillin Allergy Rash Verified 02/13/23 19:32 lisinopril Allergy Rash Verified 02/13/23 19:32 Penicillins [PCN] Allergy Rash Verified 02/13/23 19:32 simvastatin AdvReac Severe Myalgias, Verified 02/13/23 19:32 flu like sx Family History Mother , of cancer Arrhythmia Cancer Father , of [place] Myocardial infarction CAD (coronary artery disease) Carotid disease, bilateral Surgical History History of cholecystectomy (2018) History of left heart catheterization (06/19/18) History of right hip replacement S/P anal fissurectomy Social History Smoking Status: Never smoker alcohol intake: never ROS ROS ED Constitutional Constitutional ED: Denies chills or fever(s) ENT ENT ED: Denies rhinorrhea or sore throat Cardiovascular Cardiovascular: Denies chest pain or palpitations Respiratory/Chest Respiratory/Chest: Denies cough or dyspnea Gastrointestinal Gastrointestinal: Reports constipation; Denies abdominal pain Genitourinary Genitourinary ED: Denies dysuria or hematuria Musculoskeletal Musculoskeletal: Denies arthralgias Integumentary Denies abscess Neurologic Neurologic: Denies headache(s) or paresthesias Psychiatric Psychiatric: Denies anxiety or depression EXAM Physical Exam Const Vital Signs: 02/13/23 19:28 Temperature 97.8 F Temperature Source Temporal Pulse Rate 77 Respiratory Rate 15 Blood Pressure 159/75 H Blood Pressure Mean 103 Pulse Ox 96 Oxygen Delivery Method Room Air Positive well nourished General Appearance ED: NAD Eyes PERRL and EOMs intact bilaterally Resp normal respiratory effort and clear to auscultation bilaterally Auscultation: Negative for rales, rhonchi or wheezes Cardio regular rate and regular rhythm GI non-tender and non-distended GI Narrative: Rectal vault is empty. No hemorrhoids. Normal rectal tone. Neuro CN's II-XII intact bilaterally Sensorium / Orientation: alert Psych mental status grossly normal and thought process normal Skin no wounds MDM MDM MDM Narrative Medical decision making narrative: Presented with constipation. Recent started on narcotic pain medication for postoperative wrist pain. She states she tried laxatives as well as enemas at home. She feels the enemas helped the most. She had some small balls of stool after this. She does not her rectal vault is empty. Abdominal exam is benign. I believe the patient would benefit from a soapsuds enema and this will be provided. At this point I do not think she needs any lab work or imaging. After scopes with enema patient did not have a large bowel movement. I ordered a KUB which on my interpretation does not show a obstructive pattern. This appears to be a moderate stool burden on my interpretation. Radiologist are present and agrees. Patient still not having any abdominal pain. I do not think she needs blood work. I will send her home with a prescription for GoLytely. She was instructed she should likely discontinue her opiates. She is to follow-up with her primary care physician. Discharged in stable condition Impression: 1. Constipation Radiography Diagnostic Testing: Clinical Impression(s) from Imaging Studies KUB X-Ray 02/13/23 23:15 IMPRESSION: Non-obstructive bowel gas pattern. Mild to moderate increased stool. Electronically Signed: Benito Estrella MD at 23:55 EDT Reading Location ID and State: [id number] Tel , Service support , Discharge Plan Triage Chief Complaint: Constipation ED Provider: Ryan Rodney Dx/Rx/DC Orders Instructions: ED Constipation (Adult) Prescriptions: New peg 3350-electrolytes [GaviLyte-G] 236-22.74-6.74 -5.86 gram recon soln 240 ml PO Q10M PRN Qty: 4000 0RF Rx Instructions: until fecal effluent is clear No Action cholecalciferol (vitamin D3) 1,000 unit tablet 1,000 unit PO DAILY doxepin 25 mg capsule 25 mg PO QHS Leticia Allergy 180 mg PO PRN PRN (Reason: allergy) potassium chloride 10 MEQ capsule, extended release 1 tab PO DAILY atenolol-chlorthalidone 1 EACH tablet 0.5 tab PO DAILY omeprazole 20 MG capsule,delayed release(DR/EC) 20 mg PO DAILY eszopiclone 3 MG tablet 1.5 mg PO QHS MDD fibromalgya vit A,C and G-cjvbgm-kmepbgkt 1 EACH tablet 2 tab PO DAILY vitamin E 400 UNIT capsule 400 unit PO DAILY calcium carbonate-vitamin D3 1 EACH capsule 1 ea PO DAILY syfxcrxo-nlx-qece-FA-lutein 1 EACH tablet 1 ea PO DAILY Oat Bran 1,700 mg PO DAILY acetaminophen 500 MG tablet 1,000 mg PO Q8 Qty: 100 0RF Rx Instructions: Do not take more than 3000 mg Tylenol in a 24-hour period. senna 374 mg Tablet PO aspirin 81 MG tablet,chewable 81 mg PO DAILY Rx Instructions: Take 81 mg aspirin twice daily for 4 weeks postoperatively for DVT prophylaxis gemfibrozil 600 mg tablet 600 mg PO BID Qty: 180 3RF Primary Care Provider: Melany Russo Referrals: Melany Russo MD [Primary Care Provider] - Disposition Disposition: Home, Self Care
--- NOTE | 2023-02-13 23:15 | RAD_ITS ---
INDICATION: abdominal pain EXAMINATION/TECHNIQUE: X-RAY - XR Abdomen 1 View COMPARISON: None FINDINGS: BOWEL GAS PATTERN: Mild to moderate increased stool. Non-obstructive. No bowel or stomach distention. FREE AIR: Not assessed on a single supine view. LOWER CHEST: No acute pathology. BONES AND SOFT TISSUES: Status post right hip arthroplasty. Degenerative changes in the visualized spine. No acute osseous abnormality.. RAD/Abdomen Single View (Portable) IMPRESSION: Non-obstructive bowel gas pattern. Mild to moderate increased stool. Electronically Signed: Benito Estrella MD at 23:55 EDT ,
[2023-02-14] MEDS: Menthol/Lanolin/Calamine/Znox 113 GM Tube 1 APPLIC TOPICAL (00:43)
[2023-02-14 00:45] VITALS: BP 141/70; PULSE 74; RESP 16; O2SAT 96
== END 2023-02-14 00:46 | disposition home or self-care (01) ==
PROVIDERS: Emergency Provider Student in an Organized Health Care Education/Training Program; PCP Internal Medicine; Visit Provider Student in an Organized Health Care Education/Training Program
DX: K59.00 Constipation, unspecified (principal); I10 Essential (primary) hypertension; I25.10 Atherosclerotic heart disease of native coronary artery without angina pectoris; E78.5 Hyperlipidemia, unspecified; K21.9 Gastro-esophageal reflux disease without esophagitis; Z79.899 Other long term (current) drug therapy; Z79.82 Long term (current) use of aspirin; Z90.49 Acquired absence of other specified parts of digestive tract
CPT/HCPCS: 74018; 90471; 99285

== ENCOUNTER → 2025-04-09 | Outpatient (REF) | payer OTHER, SELFPAY ==
--- OUTSIDE RECORDS SUMMARY | 2025-04-09 04:37 | XMS RPT_ITS | CCD ---
Author Organization [facility] CliniSyin Care Team Providers Care Business Intelligence Etl Developer Name Role Phone Adeel Hayes MD Primary Care Provider Dr. Adeel Hayes Primary Care Provider PAXTON [place] Referring Provider [place] Other Provider [phone] Dr. Bar Henderson Attending Provider Adeel Hayes MD Primary Care Provider Adeel Hayes MD Primary Care Provider Otto RETURNER.DYNAMOMETER TESTER ENGINE, Enriqueta Unavailable Jesus RETURNER.DONOR RELATIONS OFFICER, Destini Unavailable Jesus RETURNER.DONOR RELATIONS OFFICER, Destini Unavailable Jesus RETURNER.DONOR RELATIONS OFFICER, Destini Unavailable Talampas, Adeel D Primary Care Unavailable Talampas OLS, Adeel D Attending Unavailable Otto RETURNER.DYNAMOMETER TESTER ENGINE, Enriqueta Unavailable VICTORIA ASHLEY Attending Unavailable TESTRAKEVICTORIA Referring Unavailable TALAMPAS, ADEEL D Primary Care Unavailable TALAMPAS, ADEEL D Primary Care Unavailable TESTRAKEVICTORIA Attending Unavailable TESTRAKEVICTORIA Referring Unavailable TALAMPAS, ADEEL D Primary Care Unavailable TALAMPAS, ADEEL D Attending Unavailable JESUS, DESTINI Attending Unavailable TALAMPAS, ADEEL D Primary Care Unavailable TALAMPAS, ADEEL D Primary Care Unavailable TALAMPAS, ADEEL D Attending Unavailable TALAMPAS, ADEEL D Referring Unavailable TESTRAKE, VICTORIA Attending Unavailable TESTRAKE, VICTORIA Referring Unavailable TALAMPAS, ADEEL D Primary Care Unavailable Allergies Allergy Classification Reported Allergen(s) Allergy Type Date of Onset Reaction(s) Facility Angiotensin Converting Enzyme (SERGEY) Inhibitors (3 sources) Lisinopril Drug Allergy 06-02-20 05 [facility] HMG-CoA Reductase Inhibitors (statins) (1 source) Simvastatin Drug Allergy 05-08-20 Other: See Comments [facility] Nitroimidazoles (antibiotic) (3 sources) metroNIDAZOLE Drug Allergy 06-02-20 05 [facility] Penicillins (antibiotic) (6 sources) Amoxicillin Drug Allergy 06-02-20 05 [facility] (20 sources) Amoxicillin; Translations: [AMOXICILLIN] Drug Allergy 06-02-20 05 [facility] Work Phone: (20 sources) Lisinopril; Translations: [LISINOPRIL] Drug Allergy 06-02-20 05 [facility] Work Phone: (20 sources) metroNIDAZOLE; Translations: [METRONIDAZOLE HCL] Drug Allergy 06-02-20 [facility] Work Phone: (10 sources) Penicillins; Translations: [PENICILLINS] Propensity to adverse reactions 06-02-20 05 [facility] Work Phone: (8 sources) Salicylic Acid; Translations: [SALICYLATES] Drug Allergy 06-02-20 [facility] Work Phone: (20 sources) Penicillins Propensity to adverse reactions 06-02-20 [facility] Work Phone: (20 sources) Salicylate product Propensity to adverse reactions 06-02-20 [facility] Work Phone: (2 sources) Ampicillin Drug Allergy 05-26-20 [facility] (2 sources) Penicillins Allergy to substance 05-26-20 [facility] (20 sources) Simvastatin; Translations: [SIMVASTATIN] Drug Allergy 05-08-20 Other: See Comments [facility] (4 sources) Penicillins Propensity to adverse reactions 06-02-20 05 [facility] (1 source) Ampicillin Drug Allergy 02-14-20 23 [facility] (1 source) Lisinopril Drug Allergy 02-14-20 [facility] (1 source) Penicillins Drug allergy (disorder) 02-14-20 [facility] (1 source) Simvastatin Drug Allergy 02-14-20 [facility] Rep[facility] Medications Current Medications Medication Drug Class(es) Dates Sig (Normalized) Sig (Original) acetaminophen 500 mg oral tablet (20 sources) Start: 11-25-2020 take 3000 mg by mouth every eight hours Acetaminophen Active 1000 MG PO EVERY 8 HOURS 100 November 25, 2020 1:00am Do not take more than 3000 mg Tylenol in a 24-hour period. Start: 05-20-2020 End: 11-25-2020 Acetaminophen Discontinued 3 25 MG PO NEEDED May 20, 2020 12:00am November 25, 2020 10:27am Start: 06-02-2005 take 1 tablet by scotty th once as needed TYLENOL EXTRA STRENGTH 500 MG ORAL TAB Indications: Myalgia and myositis, unspecified Take two(2) tablets every four(4) to six(6) hours as needed. 0 06/02/2005 Active Comment on above: Take two(2) tablets every four(4) to six(6) hours as needed. Leticia Allergy (2 sources) Start: 05-17-2018 Leticia Allerg y Active 180 MG PO NEEDED May 17, 2018 12:00am Start: 05-17-2018 Leticia Allerg y Active 180 MG PO NEEDED May 16, 2018 11:00pm ALPRAZolam 0.25 mg oral tablet (17 sources) Benzodiazepine Start: 10-05-2024 End: 11-04-2024 take 1 tablet by mouth once daily as needed for anxiety ALPRAZolam (XANAX) 0.25 mg tablet Indications: Anxiety state Take 1 tablet by mouth once daily as needed for anxiety for up to 30 days. 14 tablet 10/05/2024 11/04/2024 Active Start: 02-12-2024 End: 02-22-2024 take 0.5-1 tablets by mouth three times daily as needed for anxiety ALPRAZolam (XANAX) 0.25 mg tablet Indications: Situational mixed anxiety and depressive disorder Take 0.5-1 tablets by mouth three times a day as needed for anxiety for up to 10 days. 20 tablet 0 02/12/2024 02/22/2024 Active Start: 06-08-2023 End: 09-06-2023 take 0.5-1 tablets by mouth once daily as needed for anxiety ALPRAZolam (XANAX) 0.5 mg tablet Indications: Anxiety state Take 0.5-1 tablets by mouth once daily as needed for anxiety for up to 90 days. 30 tablet 0 06/08/2023 09/06/2023 Active Start: 03-28-2022 End: 06-26-2022 take 0.5-1 tablets by mouth once daily as needed for anxiety ALPRAZolam (XANAX) 0.5 mg tablet Indications: Anxiety state Take 0.5-1 tablets by mouth once daily as needed for anxiety for up to 90 days. 30 tablet 0 03/28/2022 06/26/2022 Active Comment on above: Take 0.5-1 tablets b y mouth once daily as needed for anxiety for up to 90 days. ascorbic acid 125 mg / collagen, hydrolyzed 740 mg oral capsule (20 sources) Vitamin C take 1 capsule by mouth once daily Ascorbic Acid-Collagen (COLLAGEN PLUS VITAMIN C) 125-740 mg cap Take 1 capsule by mouth once daily. Active aspirin 81 mg chewable tablet (20 sources) Platelet Aggregation Inhibitor, Nonsteroidal Anti-inflammatory Drug Start: 11-25-19 take 81 mg by mouth twice daily at mealtime Aspirin Active 81 MG PO TWICE DAILY WITH MEALS November 25, 2020 1:00am Take 81 mg aspirin twice daily for 4 weeks postoperatively for DVT prophylaxis Start: 06-19-2018 End: 11-25-2020 take 81 mg by mouth once daily Aspirin Discontinued 81 MG PO DAILY@0800 September 17, 2018 12:53pm November 25, 2020 10:27am take 1 tablet by scotty once daily aspirin, enteric coated (ASPIRIN, ENTERIC COATED) 81 mg EC tablet Take 81 mg by mouth once daily. Active Comment on above: Take 81 mg by mouth once daily. atenolol 50 mg oral tablet (20 sources) beta-Adrenergic Dara Start: 07-09-2024 End: 11-03-2024 take 1 tablet by mouth once daily atenolol (TENORMIN) 50 mg tablet Take 1 tablet by mouth once daily. 90 tablet 3 11/03/2024 Active Calcium Carbonate (20 sources) take 500 mg by mouth every four hours as needed calcium carbonate (TUMS) 500 mg chew Take 500 mg by mouth every 4 hours as needed. Active take 1 tablet by mouth once marsha y calcium carbonate (CALTRATE 600 ORAL) Take 1 tablet by mouth once daily. Active take 1 tablet by mouth once marsha y calcium carbonate (CALTRATE 600 ORAL) Take 1 tablet by mouth once daily. 0 Active calcium carbonate 1500 mg / cholecalciferol 500 unt oral capsule (20 sources) Vitamin D Start: 05-29-2018 Calcium Carbon ate-Vitamin D3 Active 1 EACH PO DAILY May 29, 2018 12:00am Start: 06-02-2005 CALCIUM + D 60 0 MG-200 UNIT ORAL TAB Take by mouth. 0 06/02/2005 Active Start: 06-02-2005 take 1 tablet by scotty th once daily CALCIUM + D 600 MG-200 UNIT ORAL TAB Take one(1) tablet two(2) times daily. 0 06/02/2005 Active Comment on above: Take one(1) tablet t wo(2) times daily. Take by mouth. GCKMVLV-PUAZMAREZ-HJEU ORAL (20 sources) take 1 tablet by mouth once daily [id number] NC ORAL Take 1 tablet by mouth once daily. Active take 1 tablet by mouth once marsha y XFEVQSZ-GQOHAVASQ-BKJB ORAL Take 1 tablet by mouth once daily. 0 Active Comment on above: Take 1 tablet by scotty th once daily. cetirizine hydrochloride 10 mg oral tablet (1 source) Histamine-1 Receptor Antagonist Start: 01-10-20 End: 01-17-20 take 1 tablet by mouth once daily cetirizine (ZYRTEC) 10 mg tablet Take 1 tablet by mouth once daily for 7 days. 7 tablet 0 01/09/2022 01/16/2022 Active Comment on above: Take 1 tablet by scotty th once daily for 7 days. cholecalciferol 0.025 mg oral tablet (20 sources) Vitamin D Start: 09-12-20 18 take 1000 [IU] by mouth once daily Cholecalciferol (Vitamin D3) Active 1000 UNIT PO DAILY September 12, 2018 1:00am Start: 09-14-2009 take 2 capsules by m outh once daily cholecalciferol(VITAMIN D 2,000 UNIT CAP ) Take 4,000 Units by mouth once daily. 0 09/14/2009 Active Start: 09-14-2009 take 1 capsule by mo uth once cholecalciferol(VITAMIN D 2,000 UNIT CAP ) Take by mouth. 0 09/14/2009 Active Start: 09-14-2009 cholecalcifero l(VITAMIN D 2,000 UNIT CAP) Take one(1) tablet daily. 0 09/14/2009 Active Comment on above: Take one(1) tablet d aily. Take by mouth. clindamycin 300 mg oral capsule (3 sources) Lincosamide Antibacterial take 2 capsules by mouth every hour clindamycin (CLEOCIN) 300 mg capsule Take 300 mg by mouth. Take 2 capsules by mouth 1 hour prior to procedure Active doxepin hydrochloride 10 mg oral capsule (20 sources) Tricyclic Antidepressant Start: 07-14-20 take 1 capsule by mouth once daily at bedtime doxepin capsule 10 mg Take 1 capsule by mouth daily at bedtime. 07/14/2024 Active Start: 07-09-2024 End: 07-14-2024 take 1 tablet by mouth once daily at bedtime Doxepin 6 mg tab Take 1 tablet by mouth daily at bedtime. 90 tablet 3 07/09/2024 07/14/2024 Discontinued Start: 03-12-2024 End: 06-23-2024 take 1 capsule by mouth once daily at bedtime doxepin capsule 10 mg Indications: Persistent disorder of initiating or maintaining sleep Take 1 capsule by mouth daily at bedtime. 90 capsule 3 03/13/2024 06/23/2024 Discontinued Start: 05-20-2020 End: 03-12-2024 take 1 capsule by mouth once daily at bedtime doxepin capsule 25 mg Indications: Persistent disorder of initiating or maintaining sleep Take 1 capsule by mouth daily at bedtime. 90 capsule 03/28/2022 03/10/2023 Discontinued Start: 05-17-2018 End: 05-20-2020 take 30 mg by mouth at bedtime Doxepin Discontinued 30 MG PO AT BEDTIME May 17, 2018 12:00am May 20, 2020 11:54am Comment on above: Take 1 capsule by mo [facility] daily at bedtime. doxycycline monohydrate 100 mg oral tablet (3 sources) Tetracycline-class Drug Start: 09-28-2022 End: 10-03-2022 take 1 tablet by mouth twice daily doxycycline monohydrate 100 mg tablet Indications: Skin rash Take 1 tablet by mouth twice daily for 5 days. 10 tablet 0 09/28/2022 10/03/2022 Active Comment on above: Take 1 tablet by scotty th twice daily for 5 days. eszopiclone 1 mg oral tablet (20 sources) Start: 09-18-2023 End: 12-17-2023 take 1 tablet by mouth at bedtime as needed eszopiclone (LUNESTA) 1 mg tab Indications: Persistent disorder of initiating or maintaining sleep Take 1 tablet by mouth at bedtime as needed for up to 90 days. 90 tablet 0 09/18/2023 12/17/2023 Active Start: 05-17-2018 End: 09-18-2023 take 0.25 tablet by mouth every twenty-four hours as needed eszopiclone (LUNESTA) 3 mg tab Take 0.25 tablets by mouth at bedtime as needed. 0 05/17/2018 09/18/2023 Discontinued Start: 05-17-2018 End: 09-06-2023 take 1 tablet by mouth at bedtime as needed eszopiclone (LUNESTA) 3 mg tab Indications: Persistent disorder of initiating or maintaining sleep Take 1 tablet by mouth at bedtime as needed for up to 180 days. AT BEDTIME. 90 tablet 1 03/10/2023 09/06/2023 Active Comment on above: Take 1 tablet by scotty th at bedtime as needed for up to 180 days. AT BEDTIME. Take 1 tablet by scotty th at bedtime as needed for up to 180 days. AT BEDTIME. Do not start before March 29, 2022. Take 1 tablet by scotty th at bedtime as needed for up to 90 days. Take 0.25 tablets by mouth at bedtime as needed. fluconazole 150 mg oral tablet (2 sources) Azole Antifungal Start: 10-26-2022 End: 10-26-2022 fluconazole (DIFLUCAN) 150 mg tablet Take 1 tablet by mouth one time only for 1 dose. Repeat in 5 to 7 days as needed. 2 tablet 0 10/26/2022 10/26/2022 Active Start: 10-04-2022 End: 10-04-2022 fluconazole (DIFLUCAN) 150 m g tablet Take 1 tablet by mouth one time only for 1 dose. Repeat in 5 to 7 days as needed. 2 tablet 0 10/04/2022 10/04/2022 Comment on above: Take 1 tablet by scotty th one time only for 1 dose. Repeat in 5 to 7 days as needed. gemfibrozil 600 mg oral tablet (20 sources) Peroxisome Proliferator Receptor alpha Agonist Start: 8 End: 4 take 1 tablet by mouth twice daily gemfibrozil (LOPID) 600 mg tablet Take 1 tablet by mouth two times a day. 180 tablet 3 05/06/2024 Active Comment on above: Take 1 tablet by scotty th twice daily. Take 1 tablet by scotty th two times a day. guaifenesin/dextrome thorphan (MUCINEX DM ORAL) (20 sources) take 1 tablet by mouth once daily as needed guaifenesin/dextrome thorphan (MUCINEX DM ORAL) Take 1 tablet by mouth once daily as needed. Active take 1 tablet by scotty th once daily as needed guaifenesin/dextromethorphan (MUCINEX DM ORAL) Take 1 tablet by mouth once daily as needed. 0 Active take 1 tablet by scotty th once daily guaifenesin/dextromethorphan (MUCINEX DM ORAL) Take 1 tablet by mouth once daily. 0 Active Comment on above: Take 1 tablet by scotty th once daily. Take 1 tablet by scotty th once daily as needed. loperamide hydrochloride 2 mg oral tablet (3 sources) Opioid Agonist take 1 tablet by mouth once as needed loperamide HCl (IMODIUM A-D) 2 mg tab Take 2 mg by mouth as needed. Active Yfojnfzl-Fzq-Havd-Fa-Miri tein (2 sources) Start: 05-29-2018 Qnckjfbi-Xiq-Fhcr-F a-Lutein Active 1 EACH PO DAILY May 29, 2018 12:00am Start: 05-29-2018 Gsomelkm-Jku-T pgk-Po-Ltsbtr Active 1 EACH PO DAILY May 28, 2018 11:00pm Oat Bran (2 sources) Start: 05-29-2018 take 1700 mg by mout h once daily Oat Bran Active 1700 MG PO DAILY May 29, 2018 12:00am Start: 05-29-2018 take 1700 mg by mouth once puneet ly Oat Bran Active 1700 MG PO DAILY May 28, 2018 11:00pm OAT BRAN ORAL (20 sources) Start: 05-29-2018 take 2 tablets by mouth once daily OAT BRAN ORAL Take 2 tablets by mouth once daily. 05/29/2018 Active OMEGA 3 550 MG CAP (20 sources) Start: 02-21-2006 OMEGA 3 550 MG CAP Take one(1) tablet daily. 0 02/21/2006 Active Comment on above: Take one(1) tablet d aily. omeprazole 20 mg delayed release oral capsule (20 sources) Proton Pump Inhibitor Start: 05-17-2018 End: 05-28-2024 take 1 capsule by mouth once daily omeprazole (PRILOSEC) 20 mg capsule Take 1 capsule by mouth once daily. 90 capsule 3 05/28/2024 Active Comment on above: Take 1 capsule by [place] once daily. Phenylephrine (3 sources) alpha-1 Adrenergic Agonist phenylephrine HCl (PREPARATION H, PE, RECTAL) by RECTAL route. Active polyethylene glycol 3350 17054 mg powder for oral solution (20 sources) Osmotic Laxative Start: 12-01-2020 polyethylene glycol 3350 (MIRALAX) 17 gram/dose powder Take 17 g by mouth once daily. 1 Bottle 3 12/01/2020 Active Comment on above: Take 17 g by mouth o nce daily. sertraline 25 mg oral tablet (20 sources) Serotonin Reuptake Inhibitor Start: 09-22-2024 take 1 tablet by mouth once daily sertraline (ZOLOFT) 25 mg tablet Take 1 tablet by mouth once daily. 90 tablet 3 09/22/2024 Active Start: 06-23-2024 End: 07-14-2024 take 1 tablet by mouth once daily at bedtime sertraline (ZOLOFT) 25 mg tablet Take 1 tablet by mouth daily at bedtime. 30 tablet 3 06/23/2024 07/14/2024 Discontinued Start: 02-12-2024 End: 05-28-2024 take 1 tablet by mouth once daily sertraline (ZOLOFT) 25 mg tablet Indications: Situational mixed anxiety and depressive disorder Take 1 tablet by mouth once daily. 30 tablet 2 02/12/2024 05/28/2024 Discontinued (Discontinued by Patient) Vit A,C And K-Vtlvqg-Ruxczrje (2 sources) Start: 05-17-2018 take 2 tablets by mouth once daily Vit A,C And B-Vimghu-Xmzmwnff Active 2 TABLET PO DAILY May 17, 2018 12:00am Start: 05-17-2018 take 2 tablets by [facility] [place] once daily Vit A,C And L-Acnwdh-Hrbjvrcm Active 2 TABLET PO DAILY May 16, 2018 11:00pm vit C/E/Zn/coppr/lutein/zeax an (PRESERVISION AREDS-2 ORAL) (20 sources) take 1 tablet by mouth once daily vit C/E/Zn/coppr/lutein/zeaxan (PRESERVISION AREDS-2 ORAL) Take 1 tablet by mouth once daily. Active vitamin b12 1 mg oral tablet (20 sources) Vitamin B12 take 1 tablet by mouth once daily cyanocobalamin (VITAMIN B-12) 1,000 mcg tab Take 1,000 mcg by mouth once daily. Active Comment on above: Take 1,000 mcg by [facility] once daily. vitamin e 180 mg oral capsul e (2 sources) Star t: 05-09 take 400 [IU] by mouth once daily Vitamin E Active 400 UNIT PO DAILY May 29, 2018 12:00am VITAMIN E ACETATE ORAL (20 sources) take 1 capsule by mouth once daily VITAMIN E ACETATE ORAL Take 1 capsule by mouth once daily. Active take 1 capsule by mouth once puneet ly VITAMIN E ACETATE ORAL Take 1 capsule by mouth once daily. 0 Active Completed/Discontinued Medications Medication Drug Class(es) Dates Sig (Normalized) Sig (Original) acetaminophen 325 mg / oxyCODONE hydrochloride 5 mg oral tablet (2 sources) Opioid Agonist Start: 07-12-2018 End: 07-17-2018 take 1 tablet by mouth every four hours as needed Oxycodone-Acetamino phen Discontinued 1 - 2 TABLET PO EVERY 4 HOURS NEEDED 30 5 July 12, 2018 12:00am July 17, 2018 12:08am Ascorbic Acid (20 sources) Vitamin C End: 02-15-2023 ascorbic acid (VITAMIN C ORAL) Take by mouth. 02/15/2023 Discontinued ascorbic acid (V ITAMIN C ORAL) Take by mouth. 0 Active Comment on above: Take by mouth. ascorbic acid 113 mg / beta carotene 7160 mg / cuprous oxide 0.4 mg / dl-alpha tocopheryl acetate 100 unt / zinc oxide 17.4 mg oral tablet (20 sources) Vitamin C Start: 01-17-2012 End: 02-15-2023 vit A,C,E-Ndvj-Oineeh 7,160-113-100 owhn-tq-ptrb ORAL Tab Take by mouth. As directed. 0 01/17/2012 02/15/2023 Discontinued Comment on above: Take by mouth. As di rected. atenolol 100 mg / chlorthalidone 25 mg oral tablet (20 sources) Thiazide-like Diuretic, beta-Adrenergic Dara Start: 07-05-2021 End: 07-09-2024 Atenolol-Chlorthalidone 100-25 mg per tablet TAKE 1/2 TABLET ONE TIME DAILY 90 tablet 3 05/06/2024 07/09/2024 Discontinued Start: 05-17-2018 take 0.5 tablet by m outh once daily Atenolol-Chlorthalidone Active 0.5 TABLE T PO DAILY May 17, 2018 12:00am Comment on above: TAKE 1/2 TABLET ONE TIME DAILY benzonatate 100 mg oral capsule (20 sources) Non-narcotic Antitussive Start: 2 End: 3 take 1 capsule by mouth every eight hours as needed benzonatate (TESSALON PERLES) 100 mg capsule Take 1 capsule by mouth three times daily as needed for cough. 30 capsule 12/31/2021 02/15/2023 Discontinued Comment on above: Take 1 capsule by mo uth three times daily as needed for cough. Bran (20 sources) Start: 6 End: 3 OAT BRAN 500 MG TAB 2 tabs in am 0 10/18/2005 02/15/2023 Discontinued Start: 10-18-2005 OAT BRAN 500 M G TAB 2 tabs in am 0 10/18/2005 Active Comment on above: 2 tabs in am docusate sodium 200 mg oral capsule (20 sources) Start: 05-17-2018 End: 08-20-2020 take 200 mg by mouth at bedtime Docusate Sodium Discontinued 200 MG PO AT BEDTIME May 17, 2018 12:00am August 20, 2020 12:12pm take 2 capsules by m outh once daily at bedtime docusate sodium (STOOL SOFTENER ORAL) Take 2 capsules by mouth daily at bedtime. 200mg total Active take 2 capsules by m outh once daily at bedtime docusate sodium (STOOL SOFTENER ORAL) Take 2 capsules by mouth daily at bedtime. Active take 2 capsules by m outh once daily at bedtime docusate sodium (STOOL SOFTENER ORAL) Take 2 capsules by mouth daily at bedtime. 0 Active fexofenadine hydrochloride 180 mg oral tablet (20 sources) Histamine-1 Receptor Antagonist Start: 07-28-2017 End: 01-09-2022 take 1 tablet by mouth once daily fexofenadine (LETICIA ALLERGY) 180 mg tablet Take 1 tablet by mouth once daily. 0 07/28/2017 01/09/2022 Discontinued take 3 tablets by mo [facility] once daily as needed fexofenadine (LETICIA) 60 mg tablet Take 180 mg by mouth once daily as needed. Active take 1 tablet by scotty once daily as needed fexofenadine (LETICIA) 60 mg tablet Take 60 mg by mouth once daily as needed. Active Comment on above: Take 1 tablet by scotty once daily. Take 60 mg by mouth once daily. fluticasone propionate 0.05 mg/actuat metered dose nasal spray (20 sources) Corticosteroid Start: 0 End: 3 take 1-2 spray(s) nasal route once daily fluticasone (FLONASE) 50 mcg/actuation nasal spray Use 1-2 Sprays in each nostril once daily. 48 g 3 06/28/2020 02/15/2023 Discontinued Start: 05-17-2018 Fluticasone 0. 05% Active 2 spry NASAL DAILY May 17, 2018 12:00am Start: 05-17-2018 Fluticasone 0. 05% Active 2 spry NASAL DAILY May 16, 2018 11:00pm Comment on above: Use 1-2 Sprays in ea ch nostril once daily. ketoconazole 20 mg/ml topical cream (19 sources) Azole Antifungal Start: 06-30-2021 End: 09-28-2022 ketoconazole (NIZORAL) 2 % cream Indications: Candidal intertrigo Apply 1 application to affected area twice daily. 60 g 06/30/2021 09/28/2022 Discontinued Comment on above: Apply 1 application to affected area twice daily. meloxicam 7.5 mg oral tablet (4 sources) Nonsteroidal Anti-inflammatory Drug Start: 08-20-2020 End: 05-26-2021 Meloxicam Discontinued 7.5 MG PO NEEDED August 20, 2020 1:00am May 26, 2021 2:38pm Start: 11-26-2019 End: 05-20-2020 take 1 tablet by mouth once daily Meloxicam (Mobic) 7.5 mg tablet Discontinued 7.5 MG PO DAILY November 26, 2019 1:00am May 20, 2020 11:53am Do not take with other NSAIDs MULTIVITAMIN ORAL TAB (20 sources) Start: 06-02-2005 End: 02-15-2023 take 1 tablet by mouth once daily MULTIVITAMIN ORAL TAB Take one(1) tablet daily. 0 06/02/2005 02/15/2023 Discontinued Start: 06-02-2005 take 1 tablet by scotty th once daily MULTIVITAMIN ORAL TAB Take one(1) tablet daily. 0 06/02/2005 Active Comment on above: Take one(1) tablet d aily. nystatin 100 unt/mg topical powder (20 sources) Polyene Antifungal Start: 03-10-2023 End: 06-23-2024 nystatin (MYCOSTATIN) powder Indications: Candidal intertrigo Apply 1 application to affected area four times daily as needed (yeast infection). 60 g 2 03/10/2023 06/23/2024 Discontinued Start: 09-28-2022 End: 10-12-2022 nystatin (MYCOSTATIN) cream Indications: Skin rash Apply to affected area twice daily for 14 days. 30 g 1 09/28/2022 10/12/2022 Active Comment on above: Apply to affected ar ea twice daily for 14 days. Apply 1 application to affected area four times daily as needed (yeast infection). nystatin 1 billion unit powd (13 sources) Start: 09-29-2022 End: 03-10-2023 nystatin 1 billion unit powd 1 application three times daily as needed. 1 Each 5 09/29/2022 03/10/2023 Discontinued Start: 09-29-2022 nystatin 1 gricelda lion unit powd 1 application three times daily as needed. 1 Each 5 09/29/2022 Active Comment on above: 1 application three times daily as needed. Clayton-3 Fatty Acids-Fish Oil (2 sources) Start: 07-05-2018 End: 11-25-2020 Clayton-3 Fatty Acids-Fish Oil Discontinued 1 EACH PO DAILY July 05, 2018 12:00am November 25, 2020 10:27am Start: 07-05-2018 End: 11-25-2020 Clayton-3 Fatty Acids-Fish Oil Discontinued 1 EACH PO DAILY July 04, 2018 11:00pm November 25, 2020 9:27am oxyCODONE hydrochloride 5 mg oral tablet (2 sources) Opioid Agonist Start: 11-25-2020 End: 11-30-2020 take 5-10 mg by mouth every four hours as needed Oxycodone Discontinued 5 - 10 MG PO EVERY 4 HOURS NEEDED 60 5 November 25, 2020 November 30, 2020 1:03am microencapsulated potassium chloride 10 meq extended release oral tablet (20 sources) Start: 05-06-2024 End: 07-09-2024 take 1 tablet by mouth once daily potassium chloride ER (KLOR-CON M10) 10 mEq tablet Take 1 tablet by mouth once daily. 90 tablet 3 05/06/2024 07/09/2024 Discontinued Start: 03-30-2022 End: 05-06-2024 take 1 tablet by mouth twice daily potassium chloride ER (K-DUR, KLOR-CON) 10 mEq tablet Take 1 tablet by mouth twice daily. 180 tablet 3 03/30/2022 12/12/2022 Discontinued Start: 07-05-2021 End: 03-30-2022 take 1 tablet by mouth once daily potassium chloride ER (K-DUR, KLOR-CON) 10 mEq tablet Take 1 tablet by mouth once daily. 90 tablet 3 07/05/2021 03/30/2022 Discontinued Start: 05-17-2018 potassium chlo ride SR (MICRO-K) 10 mEq CR capsule Take 10 mEq by mouth once daily. 05/17/2018 Active Comment on above: Take 1 tablet by scotty th once daily. Take 1 tablet by scotty th twice daily. Take 1 tablet by scotty th two times a day. simvastatin 20 mg oral tablet (8 sources) HMG-CoA Reductase Inhibitor Start: 8 End: 8 take 20 mg by mouth at bedtime Simvastatin Discontinued 20 MG PO AT BEDTIME July 19, 2018 10:37am August 08, 2018 2:20pm traZODone hydrochloride 50 mg oral tablet (5 sources) Serotonin Reuptake Inhibitor Start: 1 End: 2 take 1-2 tablets by mouth once daily at bedtime traZODone (DESYREL) 50 mg tablet Take 1-2 tablets by mouth daily at bedtime. 90 tablet 0 09/06/2021 03/24/2022 Discontinued (Other) Comment on above: Take 1-2 tablets by mouth daily at bedtime. vitamin b complex capsule (20 sources) End: take 1 capsule by mouth once daily vitamin b complex capsule Take 1 capsule by mouth once daily. 02/15/2023 Discontinued take 1 capsule by mouth once puneet ly vitamin b complex capsule Take 1 capsule by mouth once daily. 0 Active Comment on above: Take 1 capsule by mo [facility] once daily. vitamin E mixed/tocotrienol (VITAMIN E COMPLEX ORAL) (20 sources) End: 02-15-2023 vitamin E mixed/tocotrienol (VITAMIN E COMPLEX ORAL) Take by mouth. 02/15/2023 Discontinued vitamin E mixed/ tocotrienol (VITAMIN E COMPLEX ORAL) Take by mouth. 0 Active Comment on above: Take by mouth. Zinc (20 sources) Start: 08-20-2020 End: 02-15-2023 ZINC ORAL Take by mouth. 08/20/2020 02/15/2023 Discontinued Start: 08-20-2020 ZINC ORAL Take by mouth. 0 08/20/2020 Active Comment on above: Take by mouth. Problems Active Problems Problem Classification Problem Date Documented Da te Episodic/Chronic Acquired foot deformities (2 sources) Hammer toe; Translations: [Other hammer toe(s) (acquired), right foot] Onset: 5 02-10-2025 Chronic Adjustment disorders (3 sources) Mixed anxiety and depressive disorder; Translations: [Adjustment disorder with mixed anxiety and depressed mood] 02-12-2024 Chronic Anxiety disorders (20 sources) Anxiety state; Translations: [Generalized anxiety disorder] Onset: 6 02-04-2018 Chronic Biliary tract disease (6 sources) Gallbladder calculus with acute cholecystitis and no obstruction; Translations: [Calculus of gallbladder with acute and chronic cholecystitis without obstruction] 05-26-2021 Episodic Blindness and vision defects (2 sources) Visual impairment; Translations: [Unspecified visual loss] Onset: 4 07-09-2024 Chronic Coronary atherosclerosis and other heart disease (2 sources) Non-obstructive atherosclerosis of coronary artery; Translations: [Atherosclerotic heart disease of [place] coronary artery without angina pectoris] 05-26-2021 Chronic Disorders of lipid metabolism (20 sources) Hypertriglyceridemia; Translations: [Pure hyperglyceridemia] Onset: 2 10-23-2021 Chronic Esophageal disorders (20 sources) Gastroesophageal reflux disease; Translations: [Gastro-esophageal reflux disease without esophagitis] Onset: 5 06-02-2005 Chronic Essential hypertension (20 sources) Essential hypertension; Translations: [Essential (primary) hypertension] Onset: 5 08-03-2015 Chronic Fracture of upper limb (1 source) Closed fracture of right upper limb; Translations: [Unspecified fracture of shaft of humerus, right arm, sequela] Episodic Inflammation; infection of eye (except that caused by tuberculosis or sexually transmitteddisease) (1 source) Conjunctivitis; Translations: [Other mucopurulent conjunctivitis, bilateral] Episodic Mood disorders (20 sources) Reactive depression (situational); Translations: [Major depressive disorder, single episode, unspecified] 03-18-2021 Chronic Mycoses (9 sources) Candidal intertrigo; Translations: [Candidiasis of skin and nail] Onset: 5 Episodic Nutritional deficiencies (4 sources) Vitamin D deficiency; Translations: [Vitamin D deficiency, unspecified] Chronic Osteoarthritis (20 sources) Osteoarthritis; Translations: [Osteoarthrosis, unspecified whether generalized or localized, lower leg] Onset: 8 09-24-2008 Chronic Other connective tissue disease (20 sources) History of repair of hip joint; Translations: [Presence of right artificial hip joint] Onset: 2 10-23-2021 Chronic Other connective tissue disease (1 source) History of total hip arthroplasty; Translations: [Presence of right artificial hip joint] 10-29-2024 Chronic Other connective tissue disease (6 sources) Pain of toe of left foot; Translations: [Pain in left toe(s)] 05-21-2023 Episodic Other connective tissue disease (6 sources) Pain of toe of right foot; Translations: [Pain in right toe(s)] 05-21-2023 Episodic Other connective tissue disease (2 sources) Falls; Translations: [Repeated falls] 06-11-2024 Episodic Other connective tissue disease (1 source) Recurrent falls ; Translations: [Repeated falls] 07-09-2024 Episodic Other connective tissue disease (1 source) Other symptoms and signs involving the musculoskeletal system; Translations: [Other musculoskeletal symptoms referable to limbs] 10-29-2024 Episodic Other connective tissue disease (1 source) Weakness of right hand; Translations: [Other symptoms and signs involving the musculoskeletal system] 10-30-2024 Episodic Other connective tissue disease (1 source) Pain in left toe(s); Translations: [Pain in toe of left foot] Onset: Episodic Other connective tissue disease (1 source) Pain in right toe(s); Translations: [Pain in toe of right foot] Onset: Episodic Other ear and sense organ disorders (1 source) Hearing difficulty; Translations: [Unspecified hearing loss, bilateral] Chronic Other ear and sense organ disorders (1 source) Bilateral hearing loss; Translations: [Unspecified hearing loss, bilateral] 10-21-2023 Chronic Other gastrointestinal disorders (1 source) Diarrhea; Translations: [Diarrhea, unspecified] 06-23-2024 Episodic Other inflammatory condition of skin (1 source) Itching ; Translations: [Pruritus, unspecified] Episodic Other nervous system disorders (20 sources) Carpal tunnel syndrome; Translations: [Carpal tunnel syndrome, unspecified upper limb] 08-24-2005 Chronic Other nervous system disorders (3 sources) Impairment of balance; Translations: [Other abnormalities of gait and mobility] Episodic Other nervous system disorders (5 sources) Abnormal gait; Translations: [Unsteadiness on feet] 11-30-2023 Episodic Other nutritional; endocrine; and metabolic disorders (20 sources) Obesity; Translations: [Obesity, unspecified] 08-03-2015 Chronic Other nutritional; endocrine; and metabolic disorders (1 source) Obesity caused by energy imbalance; Translations: [Other obesity due to excess calories] Chronic Other skin disorders (1 source) Eruption; Translations: [Rash and other nonspecific skin eruption] Episodic Other skin disorders (2 sources) Nail deformity; Translations: [Other nail disorders] Episodic Other skin disorders (1 source) Foot callus; Translations: [Corns and callosities] 02-10-2025 Episodic Other skin disorders (1 source) Corns and callosities; Translations: [Callus of foot] Onset: Episodic Residual codes; unclassified (3 sources) Postmenopausal state; Translations: [Asymptomatic menopausal state] Episodic Residual codes; unclassified (2 sources) Pain; Translations: [Pain, unspecified] Episodic Residual codes; unclassified (1 source) Disturbance in sleep behavior; Translations: [Sleep disorder, unspecified] 06-23-2024 Episodic Retinal detachments; defects; vascular occlusion; and retinopathy (20 sources) Age related macular degeneration; Translations: [Unspecified macular degeneration] 07-28-2017 Chronic Varicose veins of lower extremity (1 source) Varicose veins of bilateral lower limbs; Translations: [Asymptomatic varicose veins of bilateral lower extremities] Episodic Past or Other Problems Problem Classification Problem Date Documented Date Episodic/Chronic Conditions associated with dizziness or vertigo (20 sources) Dizziness; Translations: [Dizziness and giddiness] Onset: 10-23-2021 10-23-2021 Episodic Diabetes mellitus without complication (20 sources) Impaired fasting glycemia; Translations: [Impaired fasting glucose] Onset: 03-22-2010 03-22-2010 Episodic Fluid and electrolyte disorders (7 sources) Hypokalemia; Translations: [Hypokalemia] Onset: 05-28-2024 Episodic Genitourinary symptoms and ill-defined conditions (2 sources) Nocturia; Translations: [Nocturia] Onset: 07-09-2024 07-09-2024 Episodic Immunizations and screening for infectious disease (11 sources) Patient encounter status; Translations: [Encounter for immunization] Onset: 07-09-2024 Episodic Other and unspecified benign neoplasm (20 sources) Neurofibroma; Translations: [Benign neoplasm of peripheral nerves and autonomic nervous system of trunk, unspecified] Onset: 01-10-2013 01-10-2013 Episodic Other and unspecified benign neoplasm (20 sources) Dermal cellular nevus ; Translations: [Other benign neoplasm of skin, unspecified] Onset: 01-10-2013 01-10-2013 Episodic Other connective tissue disease (20 sources) Fibromyalgia; Translations: [Fibromyalgia] Onset: 06-02-2005 02-01-2016 Episodic Other connective tissue disease (1 source) Repeated falls; Translations: [Frequent falls] Onset: 07-09-2024 Episodic Other nervous system disorders (1 source) Other abnormalities of gait and mobility; Translations: [Balance problem] Onset: 07-09-2024 Episodic Other nervous system disorders (1 source) Unsteadiness on feet; Translations: [Gait instability] Onset: 05-28-2024 Episodic Other non-traumatic joint disorders (20 sources) Pain in right hip joint; Translations: [Pain in right hip] Onset: 03-06-2019 03-06-2019 Episodic Other non-traumatic joint disorders (20 sources) Hip pain; Translations: [Pain in right hip] Onset: 03-06-2019 03-06-2019 Episodic Other skin disorders (20 sources) Asteatosis cutis; Translations: [Xerosis cutis] Onset: 01-10-2013 01-10-2013 Episodic Other skin disorders (20 sources) Fissure in skin; Translations: [Changes in skin texture] Onset: 01-10-2013 01-10-2013 Episodic Other skin disorders (20 sources) Skin tag; Translations: [Other hypertrophic disorders of the skin] Onset: 01-10-2013 01-10-2013 Episodic Residual codes; unclassified (20 sources) Persistent insomnia; Translations: [Insomnia, unspecified] Onset: 06-02-2005 Episodic Residual codes; unclassified (2 sources) History of cardiac catheterization; Translations: [Other specified postprocedural states] Onset: 06-19-2018 05-26-2021 Episodic Results Test Name Value Interpretation Reference Range Facil ity CNPNon 03-30-2025 CNPN Telephone (INTMWS) DODIE LI ([id number]) 1945 F Date Time Provider Department 03/30/25 ADEEL HAYES INTMWS During your visit today, we recorded the following information about you: Carla Bejarano RN 03/30/2025 12:15 PM Signed Vale from [facility] calls and states that they had received fax order to decrease sertraline. Family is asking for medication to be discontinued completely. [facility] is faxing orders again to have medication discontinued. Please review and advise, Carla Bejarano RN Allergies As of Date: 03/30/2025 Noted Allergy Reaction SIMVASTATIN 05/08/2019 14 - Other: See Comments Comments: Flu like sx, body aches AMOXICILLIN 06/02/2005 2 - Rash ASA (SALICYLATES) 06/02/2005 Comments: if not coated FLAGYL (METRONIDAZOLE HCL) 06/02/2005 LISINOPRIL 06/02/2005 PENICILLINS 06/02/2005 2 - Rash Date Reviewed: 02/10/2025 Reviewed by: Deidra Curry RN - Fully Assessed Reason for Visit: Orders [681] Prescriptions as of 04/02/2025 - potassium chloride SR (MICRO-K) 10 mEq CR capsule Take 10 mEq by mouth once daily. - phenylephrine HCl (PREPARATION H, PE, RECTAL) by RECTAL route. - calcium carbonate (TUMS) 500 mg chew Take 500 mg by mouth every 4 hours as needed. - ALPRAZolam (XANAX) 0.25 mg tablet Take 0.25 mg by mouth at bedtime as needed for anxiety. - clindamycin (CLEOCIN) 300 mg capsule Take 300 mg by mouth. Take 2 capsules by mouth 1 hour prior to procedure - loperamide HCl (IMODIUM A-D) 2 mg tab Take 2 mg by mouth as needed. - atenolol (TENORMIN) 50 mg tablet Take 1 tablet by mouth once daily. - sertraline (ZOLOFT) 25 mg tablet Take 1 tablet by mouth once daily. - doxepin capsule 10 mg Take 1 capsule by mouth daily at bedtime. - atenolol (TENORMIN) 50 mg tablet Take 1 tablet by mouth once daily. - vit C/E/Zn/coppr/lutein/ zeaxan (PRESERVISION AREDS-2 ORAL) Take 1 tablet by mouth once daily. - omeprazole (PRILOSEC) 20 mg capsule Take 1 capsule by mouth once daily. - OAT BRAN ORAL Take 2 tablets by mouth once daily. - gemfibrozil (LOPID) 600 mg tablet Take 1 tablet by mouth two times a day. - calcium carbonate (CALTRATE 600 ORAL) Take 1 tablet by mouth once daily. - docusate sodium (STOOL SOFTENER ORAL) Take 2 capsules by mouth daily at bedtime. 200mg total - VITAMIN E ACETATE ORAL Take 1 capsule by mouth once daily. - Ascorbic Acid-Collagen (COLLAGEN PLUS VITAMIN C) 125-740 mg cap Take 1 capsule by mouth once daily. - cyanocobalamin (VITAMIN B-12) 1,000 mcg tab Take 1,000 mcg by mouth once daily. - [id number] NC ORAL Take 1 tablet by mouth once daily. - guaifenesin/dextrome thorphan (MUCINEX DM ORAL) Take 1 tablet by mouth once daily as needed. - fexofenadine (LETICIA) 60 mg tablet Take 180 mg by mouth once daily as needed. - polyethylene glycol 3350 (MIRALAX) 17 gram/dose powder Take 17 g by mouth once daily. - aspirin, enteric coated (ASPIRIN, ENTERIC COATED) 81 mg EC tablet Take 81 mg by mouth once daily. - cholecalciferol(BATSHEVA MIN D 2,000 UNIT CAP) Take 4,000 Units by mouth once daily. - OMEGA 3 550 MG CAP Take one(1) tablet daily. - CALCIUM + D 600 MG-200 UNIT ORAL TAB Take by mouth. - TYLENOL EXTRA STRENGTH 500 MG ORAL TAB Take two(2) tablets every four(4) to six(6) hours as needed. Meds Comments as of 09/09/2024: [facility] Patient is unsure what she takes. 09/09/2024 Problem List As Of Date 03/30/2025 Noted Resolved Fibromyalgia [M79.7] 06/02/2005 PERSISTENT INSOMNIA [G47.00] 06/02/2005 Essential hypertension [I10] 06/02/2005 ESOPHAGEAL REFLUX [K21.9] 06/02/2005 Reactive depression [F32.9] Macular degeneration (senile) of retina [H35.30] CARPAL TUNNEL SYNDROME [G56.00] Obesity [E66.9] Anxiety state [F41.1] 05/11/2006 OSTEOARTHROS NOS-L/LEG [RFH6614] 09/24/2008 Impaired Fasting Glucose [R73.01] 03/22/2010 Xerosis cutis [L85.3] 01/10/2013 Cracked skin [R23.4] 01/10/2013 Neurofibroma of back [D36.17] 01/10/2013 Intradermal nevus [D23.9] 01/10/2013 Acrochordon [L91.8] 01/10/2013 Pain in right hip [M25.551] 03/06/2019 Dizziness [R42] 10/23/2021 Status post right hip replacement [Z96.641] 10/23/2021 Hypertriglyceridemia [E78.1] 10/23/2021 Encounter Status:Closed by LEILA VERDUZCO on 04/02/25 [facility] CNOVon 02-10-2025 CNOV Office Visit (PODIWS) DODIE LI ([id number]) 1945 F Date Time Provider Department 02/10/25 1:15 PM VICTORIA ASHLEY PODIWS During your visit today, we recorded the following information about you: Deidra Curry, MARGOT 02/10/2025 1:41 PM Signed Patient presents with: Left Foot - Established Patient, Follow Up, nail care Right Foot - Established Patient, Follow Up, nail care Patient presents for 5 month follow up nail care. ASHLEY 09/09/24 Victoria Ashley 02/10/2025 1:41 PM Signed Subjective: Patient presents to clinic c/o painful toenails. They state that the nails are especially painful with shoe gear and pressure. Patient states that nails 1-5 b/l are painful. Patient admits to having a painful corn to the right 5th toe. No other pedal complaints at this time. Patient states no change in medications or medical history since last visit. Objective: Patient presents to clinic ambulating in dress shoes Vasc: DP and PT pulses are faintly palpable bilateral. CFT is less than 5 seconds bilateral. Skin temperature is warm to cool proximal to distal bilateral. There is mild edema or varicosities noted. Neuro: Protective sensation is intact to the foot and toes when tested with the 5.07 SWM bilateral. The hallux is downgoing bilateral. Derm: Nails 1-5 b/l are painful, discolored-yellow, thick, crumbly, dystrophic and with subungal debris. Skin is of normal turgor, texture and hair growth is present bilateral. There are callus to right 5th toe. No ulceration. Ortho: Muscle strength is 5/5 for all pedal groups tested. Ankle joint DF is decreased with the knee extended with no pain or crepitus noted. 1st MPJ ROM is decreased bilateral. Rigid hammertoe is noted to right 5th toe Assessment: (B35.1) Onychomycosis (primary encounter diagnosis) (M79.675) Pain in toe of left foot (M79.674) Pain in toe of right foot (L84) Callus of foot (M20.41) Hammer toe of right foot Plan: Patient was seen and evaluated. Nails 1-5 bilateral were debrided in length and thickness. Small bleed to right 5th toe. Band aide applied. Discussed the corn of right 5th toe. This is caused by hammertoe. Options discussed include padding and periodic filing vs derotational arthroplasty. She is going to continue with padding. RTC in 4-5 months Victoria Ashley DPM Referring Provider: VICTORIA ASHLEY [[id number]] Allergies As of Date: 02/10/2025 Noted Allergy Reaction SIMVASTATIN 05/08/2019 14 - Other: See Comments Comments: Flu like sx, body aches AMOXICILLIN 06/02/2005 2 - Rash ASA (SALICYLATES) 06/02/2005 Comments: if not coated FLAGYL (METRONIDAZOLE HCL) 06/02/2005 LISINOPRIL 06/02/2005 PENICILLINS 06/02/2005 2 - Rash Date Reviewed: 02/10/2025 Reviewed by: Deidra Curry RN - Fully Assessed Reason for Visit: Established Patient [175] Follow Up [171] nail care [Other] Established Patient [175] Follow Up [171] nail care [Other] Primary Visit Diagnosis:Onychomyco sis [B35.1] Other Visit Diagnoses:Pain in toe of left foot [M79.675] Pain in toe of right foot [M79.674] Callus of foot [L84] Hammer toe of right foot [M20.41] Prescriptions as of 02/10/2025 - potassium chloride SR (MICRO-K) 10 mEq CR capsule Take 10 mEq by mouth once daily. - phenylephrine HCl (PREPARATION H, PE, RECTAL) by RECTAL route. - calcium carbonate (TUMS) 500 mg chew Take 500 mg by mouth every 4 hours as needed. - ALPRAZolam (XANAX) 0.25 mg tablet Take 0.25 mg by mouth at bedtime as needed for anxiety. - clindamycin (CLEOCIN) 300 mg capsule Take 300 mg by mouth. Take 2 capsules by mouth 1 hour prior to procedure - loperamide HCl (IMODIUM A-D) 2 mg tab Take 2 mg by mouth as needed. - atenolol (TENORMIN) 50 mg tablet Take 1 tablet by mouth once daily. - sertraline (ZOLOFT) 25 mg tablet Take 1 tablet by mouth once daily. - doxepin capsule 10 mg Take 1 capsule by mouth daily at bedtime. - atenolol (TENORMIN) 50 mg tablet Take 1 tablet by mouth once daily. - vit C/E/Zn/coppr/lutein/ zeaxan (PRESERVISION AREDS-2 ORAL) Take 1 tablet by mouth once daily. - omeprazole (PRILOSEC) 20 mg capsule Take 1 capsule by mouth once daily. - OAT BRAN ORAL Take 2 tablets by mouth once daily. - gemfibrozil (LOPID) 600 mg tablet Take 1 tablet by mouth two times a day. - calcium carbonate (CALTRATE 600 ORAL) Take 1 tablet by mouth once daily. - docusate sodium (STOOL SOFTENER ORAL) Take 2 capsules by mouth daily at bedtime. 200mg total - VITAMIN E ACETATE ORAL Take 1 capsule by mouth once daily. - Ascorbic Acid-Collagen (COLLAGEN PLUS VITAMIN C) 125-740 mg cap Take 1 capsule by mouth once daily. - cyanocobalamin (VITAMIN B-12) 1,000 mcg tab Take 1,000 mcg by mouth once daily. - [id number] NC ORAL Take 1 tablet by mouth once daily. - guaifenesin/dextrome thorphan (MUCINEX DM ORAL) Take 1 tablet by mouth (more content not included)... [facility] [place] Telephone (INTWS) DODIE LI ([id number]) 1945 F Date Time Provider Department 01/26/25 ADEEL HAYES INTMWS During your visit today, we recorded the following information about you: Vickie Mckeon MA 01/26/2025 8:52 AM Addendum Office received faxed from [facility] regarding patient on 01/23/25. Neuro checks completed and to follow for review. Please review fax and complete. Once complete fax back to [facility] at [phone]. Office received fax regarding patient on 01/20/25 with update regarding fall. Please review fax and note. Once complete fax back to [facility] at [phone] Routed to PCP. MARISOL Briceno Liza D, MD 01/26/2025 6:43 PM Signed Reviewed and signed Gisele Sheehan LPN 01/27/2025 12:20 PM Signed Completed and faxed back 01/27/25 Allergies As of Date: 01/26/2025 Noted Allergy Reaction SIMVASTATIN 05/08/2019 14 - Other: See Comments Comments: Flu like sx, body aches AMOXICILLIN 06/02/2005 2 - Rash ASA (SALICYLATES) 06/02/2005 Comments: if not coated FLAGYL (METRONIDAZOLE HCL) 06/02/2005 LISINOPRIL 06/02/2005 PENICILLINS 06/02/2005 2 - Rash Date Reviewed: 09/09/2024 Reviewed by: Sabina Briseno LPN - Fully Assessed Reason for Visit: Electronic Communication [890] Cmt: [facility] Prescriptions as of 01/27/2025 - atenolol (TENORMIN) 50 mg tablet Take 1 tablet by mouth once daily. - sertraline (ZOLOFT) 25 mg tablet Take 1 tablet by mouth once daily. - doxepin capsule 10 mg Take 1 capsule by mouth daily at bedtime. - atenolol (TENORMIN) 50 mg tablet Take 1 tablet by mouth once daily. - vit C/E/Zn/coppr/lutein/ zeaxan (PRESERVISION AREDS-2 ORAL) Take 1 tablet by mouth once daily. - omeprazole (PRILOSEC) 20 mg capsule Take 1 capsule by mouth once daily. - OAT BRAN ORAL Take 2 tablets by mouth once daily. - gemfibrozil (LOPID) 600 mg tablet Take 1 tablet by mouth two times a day. - calcium carbonate (CALTRATE 600 ORAL) Take 1 tablet by mouth once daily. - docusate sodium (STOOL SOFTENER ORAL) Take 2 capsules by mouth daily at bedtime. - VITAMIN E ACETATE ORAL Take 1 capsule by mouth once daily. - Ascorbic Acid-Collagen (COLLAGEN PLUS VITAMIN C) 125-740 mg cap Take 1 capsule by mouth once daily. - cyanocobalamin (VITAMIN B-12) 1,000 mcg tab Take 1,000 mcg by mouth once daily. - [id number] NC ORAL Take 1 tablet by mouth once daily. - guaifenesin/dextrome thorphan (MUCINEX DM ORAL) Take 1 tablet by mouth once daily as needed. - fexofenadine (LETICIA) 60 mg tablet Take 60 mg by mouth once daily as needed. - polyethylene glycol 3350 (MIRALAX) 17 gram/dose powder Take 17 g by mouth once daily. - aspirin, enteric coated (ASPIRIN, ENTERIC COATED) 81 mg EC tablet Take 81 mg by mouth once daily. - cholecalciferol(BATSHEVA MIN D 2,000 UNIT CAP) Take by mouth. - OMEGA 3 550 MG CAP Take one(1) tablet daily. - CALCIUM + D 600 MG-200 UNIT ORAL TAB Take by mouth. - TYLENOL EXTRA STRENGTH 500 MG ORAL TAB Take two(2) tablets every four(4) to six(6) hours as needed. Meds Comments as of 09/09/2024: [facility] disp[facility] medication[facility] Patient is unsure what she takes. 09/09/2024 Problem List As Of Date 01/26/2025 Noted Resolved Fibromyalgia [M79.7] 06/02/2005 PERSISTENT INSOMNIA [G47.00] 06/02/2005 Essential hypertension [I10] 06/02/2005 ESOPHAGEAL REFLUX [K21.9] 06/02/2005 Reactive depression [F32.9] Macular degeneration (senile) of retina [H35.30] CARPAL TUNNEL SYNDROME [G56.00] Obesity [E66.9] Anxiety state [F41.1] 05/11/2006 OSTEOARTHROS NOS-L/LEG [[id number]] 09/24/2008 Impaired Fasting Glucose [R73.01] 03/22/2010 Xerosis cutis [L85.3] 01/10/2013 Cracked skin [R23.4] 01/10/2013 Neurofibroma of back [D36.17] 01/10/2013 Intradermal nevus [D23.9] 01/10/2013 Acrochordon [L91.8] 01/10/2013 Pain in right hip [M25.551] 03/06/2019 Dizziness [R42] 10/23/2021 Status post right hip replacement [Z96.641] 10/23/2021 Hypertriglyceridemia [E78.1] 10/23/2021 Encounter Status:Closed by GISELE SHEEHAN on 01/27/25 [facility] CNPNon 12-23-2024 CNPN Telephone (INTMWS) DODIE LI ([id number]) 1945 F Date Time Provider Department 12/23/24 ADEEL HAYES INTWS During your visit today, we recorded the following information about you: Ariana Hernandez LPN 12/23/2024 4:10 PM Signed Angie from [facility] calling to report patient had fall on 12/17/2024, no injury. She is bruised on her buttocks, and right ear. Patient not sure if she tried to get up with having her pants pulled up all the way. Needed help to return to her feet. Patient is d/c from OT today is doing transfers with no issues. Adeel Hayes MD 12/23/2024 8:37 PM Signed Noted. Okay Allergies As of Date: 12/23/2024 Noted Allergy Reaction SIMVASTATIN 05/08/2019 14 - Other: See Comments Comments: Flu like sx, body aches AMOXICILLIN 06/02/2005 2 - Rash ASA (SALICYLATES) 06/02/2005 Comments: if not coated FLAGYL (METRONIDAZOLE HCL) 06/02/2005 LISINOPRIL 06/02/2005 PENICILLINS 06/02/2005 2 - Rash Date Reviewed: 09/09/2024 Reviewed by: Sabina Briseno LPN - Fully Assessed Reason for Visit: report a fall on 12/17/2024 [Other] Prescriptions as of 12/24/2024 - atenolol (TENORMIN) 50 mg tablet Take 1 tablet by mouth once daily. - sertraline (ZOLOFT) 25 mg tablet Take 1 tablet by mouth once daily. - doxepin capsule 10 mg Take 1 capsule by mouth daily at bedtime. - atenolol (TENORMIN) 50 mg tablet Take 1 tablet by mouth once daily. - vit C/E/Zn/coppr/lutein/ zeaxan (PRESERVISION AREDS-2 ORAL) Take 1 tablet by mouth once daily. - omeprazole (PRILOSEC) 20 mg capsule Take 1 capsule by mouth once daily. - OAT BRAN ORAL Take 2 tablets by mouth once daily. - gemfibrozil (LOPID) 600 mg tablet Take 1 tablet by mouth two times a day. - calcium carbonate (CALTRATE 600 ORAL) Take 1 tablet by mouth once daily. - docusate sodium (STOOL SOFTENER ORAL) Take 2 capsules by mouth daily at bedtime. - VITAMIN E ACETATE ORAL Take 1 capsule by mouth once daily. - Ascorbic Acid-Collagen (COLLAGEN PLUS VITAMIN C) 125-740 mg cap Take 1 capsule by mouth once daily. - cyanocobalamin (VITAMIN B-12) 1,000 mcg tab Take 1,000 mcg by mouth once daily. - UBSEMZZ-XMXLTPEFE-XW NC ORAL Take 1 tablet by mouth once daily. - guaifenesin/dextrome thorphan (MUCINEX DM ORAL) Take 1 tablet by mouth once daily as needed. - fexofenadine (LETICIA) 60 mg tablet Take 60 mg by mouth once daily as needed. - polyethylene glycol 3350 (MIRALAX) 17 gram/dose powder Take 17 g by mouth once daily. - aspirin, enteric coated (ASPIRIN, ENTERIC COATED) 81 mg EC tablet Take 81 mg by mouth once daily. - cholecalciferol(BATSHEVA MIN D 2,000 UNIT CAP) Take by mouth. - OMEGA 3 550 MG CAP Take one(1) tablet daily. - CALCIUM + D 600 MG-200 UNIT ORAL TAB Take by mouth. - TYLENOL EXTRA STRENGTH 500 MG ORAL TAB Take two(2) tablets every four(4) to six(6) hours as needed. Meds Comments as of 09/09/2024: [facility] dispenses medication. Patient is unsure what she takes. 09/09/2024 Problem List As Of Date 12/23/2024 Noted Resolved Fibromyalgia [M79.7] 06/02/2005 PERSISTENT INSOMNIA [G47.00] 06/02/2005 Essential hypertension [I10] 06/02/2005 ESOPHAGEAL REFLUX [K21.9] 06/02/2005 Reactive depression [F32.9] Macular degeneration (senile) of retina [H35.30] CARPAL TUNNEL SYNDROME [G56.00] Obesity [E66.9] Anxiety state [F41.1] 05/11/2006 OSTEOARTHROS NOS-L/LEG [[id number]] 09/24/2008 Impaired Fasting Glucose [R73.01] 03/22/2010 Xerosis cutis [L85.3] 01/10/2013 Cracked skin [R23.4] 01/10/2013 Neurofibroma of back [D36.17] 01/10/2013 Intradermal nevus [D23.9] 01/10/2013 Acrochordon [L91.8] 01/10/2013 Pain in right hip [M25.551] 03/06/2019 Dizziness [R42] 10/23/2021 Status post right hip replacement [Z96.641] 10/23/2021 Hypertriglyceridemia [E78.1] 10/23/2021 Encounter Status:Closed by DEIDRA FLORES on 12/24/24 [facility] 11-25-2024 [facility] Telephone ([facility]) DODIE LI ([id number]) 1945 F Date Time Provider Department 11/25/24 ADEEL HAYES During your visit today, we recorded the following information about you: Winifred Calixto LPN 11/25/2024 10:28 AM Signed Florence with [facility] is calling with POC. Florence reports PT will see pt twice a week x 2 weeks, then once a week x 3 weeks for strengthening and balance. Florence is also requesting a VO for SW. Pt is anxious about POA and would like to get Life Alert and has other concerns that SW could help pt with. Call Florence with provider's VO for SW order and agreement with POC. MANJEET Lopes Terri, APRN.DYNAMOM[employer]ER [employer]INE 11/25/2024 4:47 PM Addendum OK for all [facility]. Ameena Truong LPN 11/26/2024 9:41 AM Signed Below response left on secure identified vm. Ameena Truong LPN Allergies As of Date: 11/25/2024 Noted Allergy Reaction SIMVASTATIN 05/08/2019 14 - Other: See Comments Comments: Flu like sx, body aches AMOXICILLIN 06/02/2005 2 - Rash ASA (SALICYLATES) 06/02/2005 Comments: if not coated FLAGYL (METRONIDAZOLE HCL) 06/02/2005 LISINOPRIL 06/02/2005 PENICILLINS 06/02/2005 2 - Rash Date Reviewed: 09/09/2024 Reviewed by: Sabina Briseno LPN - Fully Assessed Reason for Visit: verbal orders [Other] Prescriptions as of 11/26/2024 - atenolol (TENORMIN) 50 mg tablet Take 1 tablet by mouth once daily. - sertraline (ZOLOFT) 25 mg tablet Take 1 tablet by mouth once daily. - doxepin capsule 10 mg Take 1 capsule by mouth daily at bedtime. - atenolol (TENORMIN) 50 mg tablet Take 1 tablet by mouth once daily. - vit C/E/Zn/coppr/lutein/ zeaxan (PRESERVISION AREDS-2 ORAL) Take 1 tablet by mouth once daily. - omeprazole (PRILOSEC) 20 mg capsule Take 1 capsule by mouth once daily. - OAT BRAN ORAL Take 2 tablets by mouth once daily. - gemfibrozil (LOPID) 600 mg tablet Take 1 tablet by mouth two times a day. - calcium carbonate (CALTRATE 600 ORAL) Take 1 tablet by mouth once daily. - docusate sodium (STOOL SOFTENER ORAL) Take 2 capsules by mouth daily at bedtime. - VITAMIN E ACETATE ORAL Take 1 capsule by mouth once daily. - Ascorbic Acid-Collagen (COLLAGEN PLUS VITAMIN C) 125-740 mg cap Take 1 capsule by mouth once daily. - cyanocobalamin (VITAMIN B-12) 1,000 mcg tab Take 1,000 mcg by mouth once daily. - QAHCKAA-EURIKZQFB-MD NC ORAL Take 1 tablet by mouth once daily. - guaifenesin/dextrome thorphan (MUCINEX DM ORAL) Take 1 tablet by mouth once daily as needed. - fexofenadine (LETICIA) 60 mg tablet Take 60 mg by mouth once daily as needed. - polyethylene glycol 3350 (MIRALAX) 17 gram/dose powder Take 17 g by mouth once daily. - aspirin, enteric coated (ASPIRIN, ENTERIC COATED) 81 mg EC tablet Take 81 mg by mouth once daily. - cholecalciferol(BATSHEVA MIN D 2,000 UNIT CAP) Take by mouth. - OMEGA 3 550 MG CAP Take one(1) tablet daily. - CALCIUM + D 600 MG-200 UNIT ORAL TAB Take by mouth. - TYLENOL EXTRA STRENGTH 500 MG ORAL TAB Take two(2) tablets every four(4) to six(6) hours as needed. Meds Comments as of 09/09/2024: [facility] dispenses medication. Patient is unsure what she takes. 09/09/2024 Problem List As Of Date 11/25/2024 Noted Resolved Fibromyalgia [M79.7] 06/02/2005 PERSISTENT INSOMNIA [G47.00] 06/02/2005 Essential hypertension [I10] 06/02/2005 ESOPHAGEAL REFLUX [K21.9] 06/02/2005 Reactive depression [F32.9] Macular degeneration (senile) of retina [H35.30] CARPAL TUNNEL SYNDROME [G56.00] Obesity [E66.9] Anxiety state [F41.1] 05/11/2006 OSTEOARTHROS NOS-L/LEG [[id number]] 09/24/2008 Impaired Fasting Glucose [R73.01] 03/22/2010 Xerosis cutis [L85.3] 01/10/2013 Cracked skin [R23.4] 01/10/2013 Neurofibroma of back [D36.17] 01/10/2013 Intradermal nevus [D23.9] 01/10/2013 Acrochordon [L91.8] 01/10/2013 Pain in right hip [M25.551] 03/06/2019 Dizziness [R42] 10/23/2021 Status post right hip replacement [Z96.641] 10/23/2021 Hypertriglyceridemia [E78.1] 10/23/2021 Encounter Status:Closed by AMEENA TRUONG on 11/26/24 [facility] DOD[facility] LI ([id number]) 1945 F Date Time Provider Department 11/18/24 ADEEL HAYES [facility] During your visit today, we recorded the following information about you: Winifred Calixto LPN 11/18/2024 4:41 PM Signed Pt calls requesting a copy of DNR be mailed to her. Per Niki Anne RN it is ok to send. DNR mailed as requested. Winifred Calixto LPN Allergies As of Date: 11/18/2024 Noted Allergy Reaction SIMVASTATIN 05/08/2019 14 - Other: See Comments Comments: Flu like sx, body aches AMOXICILLIN 06/02/2005 2 - Rash ASA (SALICYLATES) 06/02/2005 Comments: if not coated FLAGYL (METRONIDAZOLE HCL) 06/02/2005 LISINOPRIL 06/02/2005 PENICILLINS 06/02/2005 2 - Rash Date Reviewed: 09/09/2024 Reviewed by: Sabina Briseno LPN - Fully Assessed Reason for Visit: Forms [913] Prescriptions as of 11/18/2024 - atenolol (TENORMIN) 50 mg tablet Take 1 tablet by mouth once daily. - sertraline (ZOLOFT) 25 mg tablet Take 1 tablet by mouth once daily. - doxepin capsule 10 mg Take 1 capsule by mouth daily at bedtime. - atenolol (TENORMIN) 50 mg tablet Take 1 tablet by mouth once daily. - vit C/E/Zn/coppr/lutein/ zeaxan (PRESERVISION AREDS-2 ORAL) Take 1 tablet by mouth once daily. - omeprazole (PRILOSEC) 20 mg capsule Take 1 capsule by mouth once daily. - OAT BRAN ORAL Take 2 tablets by mouth once daily. - gemfibrozil (LOPID) 600 mg tablet Take 1 tablet by mouth two times a day. - calcium carbonate (CALTRATE 600 ORAL) Take 1 tablet by mouth once daily. - docusate sodium (STOOL SOFTENER ORAL) Take 2 capsules by mouth daily at bedtime. - VITAMIN E ACETATE ORAL Take 1 capsule by mouth once daily. - Ascorbic Acid-Collagen (COLLAGEN PLUS VITAMIN C) 125-740 mg cap Take 1 capsule by mouth once daily. - cyanocobalamin (VITAMIN B-12) 1,000 mcg tab Take 1,000 mcg by mouth once daily. - CEHWCAR-FGQNIDWRK-OQ NC ORAL Take 1 tablet by mouth once daily. - guaifenesin/dextrome thorphan (MUCINEX DM ORAL) Take 1 tablet by mouth once daily as needed. - fexofenadine (LETICIA) 60 mg tablet Take 60 mg by mouth once daily as needed. - polyethylene glycol 3350 (MIRALAX) 17 gram/dose powder Take 17 g by mouth once daily. - aspirin, enteric coated (ASPIRIN, ENTERIC COATED) 81 mg EC tablet Take 81 mg by mouth once daily. - cholecalciferol(BATSHEVA MIN D 2,000 UNIT CAP) Take by mouth. - OMEGA 3 550 MG CAP Take one(1) tablet daily. - CALCIUM + D 600 MG-200 UNIT ORAL TAB Take by mouth. - TYLENOL EXTRA STRENGTH 500 MG ORAL TAB Take two(2) tablets every four(4) to six(6) hours as needed. Meds Comments as of 09/09/2024: [facility] dispenses medication. Patient is unsure what she takes. 09/09/2024 Problem List As Of Date 11/18/2024 Noted Resolved Fibromyalgia [M79.7] 06/02/2005 PERSISTENT INSOMNIA [G47.00] 06/02/2005 Essential hypertension [I10] 06/02/2005 ESOPHAGEAL REFLUX [K21.9] 06/02/2005 Reactive depression [F32.9] Macular degeneration (senile) of retina [H35.30] CARPAL TUNNEL SYNDROME [G56.00] Obesity [E66.9] Anxiety state [F41.1] 05/11/2006 OSTEOARTHROS NOS-L/LEG [[id number]] 09/24/2008 Impaired Fasting Glucose [R73.01] 03/22/2010 Xerosis cutis [L85.3] 01/10/2013 Cracked skin [R23.4] 01/10/2013 Neurofibroma of back [D36.17] 01/10/2013 Intradermal nevus [D23.9] 01/10/2013 Acrochordon [L91.8] 01/10/2013 Pain in right hip [M25.551] 03/06/2019 Dizziness [R42] 10/23/2021 Status post right hip replacement [Z96.641] 10/23/2021 Hypertriglyceridemia [E78.1] 10/23/2021 Encounter Status:Closed by WINIFRED CALIXTO on 11/18/24 [facility] [place]OD[facility] ([id number]) 1945 F Date Time Provider Department 11/13/24 ADEEL HAYES [facility] During your visit today, we recorded the following information about you: Chelsi Osorio LPN 11/13/2024 10:24 AM Signed Mami with [facility] calling to see if you will follow pt for PT and OT 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 Pt went home from [facility] on 11-06-24. Please advise Mami with verbal order. Okay to leave a detailed message. MANJEET Tavares Liza D, MD 11/14/2024 1:47 AM Signed Will follow, but I thought patient was still at assisted living since got fax from nurse there about a prescription clarification. Check with [facility] and/or patient Gisele Sheehan LPN 11/14/2024 12:10 PM Signed Mami aware and states patient will be discharged but unsure if home or assisted living. States they are looking into this and will call office back with any new information or orders if needed. Allergies As of Date: 11/13/2024 Noted Allergy Reaction SIMVASTATIN 05/08/2019 14 - Other: See Comments Comments: Flu like sx, body aches AMOXICILLIN 06/02/2005 2 - Rash ASA (SALICYLATES) 06/02/2005 Comments: if not coated FLAGYL (METRONIDAZOLE HCL) 06/02/2005 LISINOPRIL 06/02/2005 PENICILLINS 06/02/2005 2 - Rash Date Reviewed: 09/09/2024 Reviewed by: Sabina Briseno LPN - Fully Assessed Reason for Visit: [facility]- verbal orders needed [Other] Prescriptions as of 11/14/2024 - atenolol (TENORMIN) 50 mg tablet Take 1 tablet by mouth once daily. - sertraline (ZOLOFT) 25 mg tablet Take 1 tablet by mouth once daily. - doxepin capsule 10 mg Take 1 capsule by mouth daily at bedtime. - atenolol (TENORMIN) 50 mg tablet Take 1 tablet by mouth once daily. - vit C/E/Zn/coppr/lutein/ zeaxan (PRESERVISION AREDS-2 ORAL) Take 1 tablet by mouth once daily. - omeprazole (PRILOSEC) 20 mg capsule Take 1 capsule by mouth once daily. - OAT BRAN ORAL Take 2 tablets by mouth once daily. - gemfibrozil (LOPID) 600 mg tablet Take 1 tablet by mouth two times a day. - calcium carbonate (CALTRATE 600 ORAL) Take 1 tablet by mouth once daily. - docusate sodium (STOOL SOFTENER ORAL) Take 2 capsules by mouth daily at bedtime. - VITAMIN E ACETATE ORAL Take 1 capsule by mouth once daily. - Ascorbic Acid-Collagen (COLLAGEN PLUS VITAMIN C) 125-740 mg cap Take 1 capsule by mouth once daily. - cyanocobalamin (VITAMIN B-12) 1,000 mcg tab Take 1,000 mcg by mouth once daily. - GRYUSSD-SVLWHYGLV-QG NC ORAL Take 1 tablet by mouth once daily. - guaifenesin/dextrome thorphan (MUCINEX DM ORAL) Take 1 tablet by mouth once daily as needed. - fexofenadine (LETICIA) 60 mg tablet Take 60 mg by mouth once daily as needed. - polyethylene glycol 3350 (MIRALAX) 17 gram/dose powder Take 17 g by mouth once daily. - aspirin, enteric coated (ASPIRIN, ENTERIC COATED) 81 mg EC tablet Take 81 mg by mouth once daily. - cholecalciferol(BATSHEVA MIN D 2,000 UNIT CAP) Take by mouth. - OMEGA 3 550 MG CAP Take one(1) tablet daily. - CALCIUM + D 600 MG-200 UNIT ORAL TAB Take by mouth. - TYLENOL EXTRA STRENGTH 500 MG ORAL TAB Take two(2) tablets every four(4) to six(6) hours as needed. Meds Comments as of 09/09/2024: [facility] dispenses medication. Patient is unsure what she takes. 09/09/2024 Problem List As Of Date 11/13/2024 Noted Resolved Fibromyalgia [M79.7] 06/02/2005 PERSISTENT INSOMNIA [G47.00] 06/02/2005 Essential hypertension [I10] 06/02/2005 ESOPHAGEAL REFLUX [K21.9] 06/02/2005 Reactive depression [F32.9] Macular degeneration (senile) of retina [H35.30] CARPAL TUNNEL SYNDROME [G56.00] Obesity [E66.9] Anxiety state [F41.1] 05/11/2006 OSTEOARTHROS NOS-L/LEG [[id number]] 09/24/2008 Impaired Fasting Glucose [R73.01] 03/22/2010 Xerosis cutis [L85.3] 01/10/2013 Cracked skin [R23.4] 01/10/2013 Neurofibroma of back [D36.17] 01/10/2013 Intradermal nevus [D23.9] 01/10/2013 Acrochordon [L91.8] 01/10/2013 Pain in right hip [M25.551] 03/06/2019 Dizziness [R42] 10/23/2021 Status post right hip replacement [Z96.641] 10/23/2021 Hypertriglyceridemia [E78.1] 10/23/2021 Encounter Status:Closed by GISELE SHEEHAN on 11/14/24 [facility] 10-29-2024 [facility] Telephone ([facility]) DODIE LI ([id number]) 1945 F Date Time Provider Department 10/29/24 ADEEL HAYES INTMWS During your visit today, we recorded the following information about you: Meredith Varela RN 10/29/2024 3:51 PM Signed Patient reports she is at [facility], and would like an order for Physical Therapy there, to help strengthen her legs. She reports she uses a walker. Asking if PCP would place order. Pended. Please call patient with reply, and call [facility], assisted living nurse, with PT order update as well. [phone]. MARGOT Veloz Liza D, MD 10/29/2024 6:53 PM Signed Fax order Jie Serrato [facility] 10/30/2024 9:34 AM Signed TC to patient who is notified order is placed for leg strength as requested. Patient also asking that additional PT order be placed for weakness in her right hand. Patient states she cannot write and thinks PT would help with this. Advised patient PCP is out of office and would not be able to address today. Patient verbalized understanding and is asking for call back with providers message. GLORIA Swanson Liza D, MD 10/30/2024 5:47 PM Signed Filed differently as outside [facility] order but should work as well Carla Scott 10/31/2024 10:11 AM Signed Spoke with patient and advised that both PT for leg strength and hand can be faxed to [facility]. Patient advised that [facility] staff told her that they do not accept her insurance, so she is unsure of what is going on and where she will be going. Patient is calling [facility] to notify of the insurance situation and patient or [facility] will call back to notify this office where patient will be receiving care. Once notified of patient's care facility, please fax both PT orders from 10/29/24 and 10/31/24 to the appropriate care facility. Leila Verduzco LPN 11/04/2024 11:37 AM Signed Order for PT at [facility] was faxed to [facility]. Allergies As of Date: 10/29/2024 Noted Allergy Reaction SIMVASTATIN 05/08/2019 14 - Other: See Comments Comments: Flu like sx, body aches AMOXICILLIN 06/02/2005 2 - Rash ASA (SALICYLATES) 06/02/2005 Comments: if not coated FLAGYL (METRONIDAZOLE HCL) 06/02/2005 LISINOPRIL 06/02/2005 PENICILLINS 06/02/2005 2 - Rash Date Reviewed: 09/09/2024 Reviewed by: Sabina Briseno LPN - Fully Assessed Reason for Visit: Patient Request [1186] Primary Visit Diagnosis:Weakness of both lower extremities [R29.898] Other Visit Diagnoses:Gait instability [R26.81] Primary osteoarthritis of both knees [M17.0] S/P total right hip arthroplasty [Z96.641] Right hand weakness [R29.898] Order(s):CONSULT TO PHYSICAL THERAPY [9032] Order #: [id number]: 1 FUTURE CONSULT TO NON-[facility] FACILITY [4310800] Order #: [id number] Prescriptions as of 11/04/2024 - atenolol (TENORMIN) 50 mg tablet Take 1 tablet by mouth once daily. - ALPRAZolam (XANAX) 0.25 mg tablet Take 1 tablet by mouth once daily as needed for anxiety for up to 30 days. - sertraline (ZOLOFT) 25 mg tablet Take 1 tablet by mouth once daily. - doxepin capsule 10 mg Take 1 capsule by mouth daily at bedtime. - atenolol (TENORMIN) 50 mg tablet Take 1 tablet by mouth once daily. - vit C/E/Zn/coppr/lutein/ zeaxan (PRESERVISION AREDS-2 ORAL) Take 1 tablet by mouth once daily. - omeprazole (PRILOSEC) 20 mg capsule Take 1 capsule by mouth once daily. - OAT BRAN ORAL Take 2 tablets by mouth once daily. - gemfibrozil (LOPID) 600 mg tablet Take 1 tablet by mouth two times a day. - calcium carbonate (CALTRATE 600 ORAL) Take 1 tablet by mouth once daily. - docusate sodium (STOOL SOFTENER ORAL) Take 2 capsules by mouth daily at bedtime. - VITAMIN E ACETATE ORAL Take 1 capsule by mouth once daily. - Ascorbic Acid-Collagen (COLLAGEN PLUS VITAMIN C) 125-740 mg cap Take 1 capsule by mouth once daily. - cyanocobalamin (VITAMIN B-12) 1,000 mcg tab Take 1,000 mcg by mouth once daily. - KZVPJFS-HNWZIHOKP-UL NC ORAL Take 1 tablet by mouth once daily. - guaifenesin/dextrome thorphan (MUCINEX DM ORAL) Take 1 tablet by mouth once daily as needed. - fexofenadine (LETICIA) 60 mg tablet Take 60 mg by mouth once daily as needed. - polyethylene glycol 3350 (MIRALAX) 17 gram/dose powder Take 17 g by mouth once daily. - aspirin, enteric coated (ASPIRIN, ENTERIC COATED) 81 mg EC tablet Take 81 mg by mouth once daily. - cholecalciferol(BATSHEVA MIN D 2,000 UNIT CAP) Take by mouth. - OMEGA 3 550 MG CAP Take one(1) tablet daily. - CALCIUM + D 600 MG-200 UNIT ORAL TAB Take by mouth. - TYLENOL EXTRA STRENGTH 500 MG ORAL TAB Take two(2) tablets every four(4) to six(6) hours as needed. Meds Comments as of 09/09/2024: Healthy living dispenses medication. Patient is unsure what she takes. 09/09/2024 Problem List As Of Date 10/29/2024 Noted Resolved Fibrom (more content not included)... Normal [facility] 09-25-2024 [facility] Telephone (INT[facility]) DODIE LI ([id number]) 1945 F Date Time Provider Department 09/25/24 ADEEL HAYES INTMWS During your visit today, we recorded the following information about you: Daniela Gordon, MARGOT 09/25/2024 3:33 PM Signed Patient calls to ask if provider would send a small supply of xanax to [facility]. Patient reports in the past she has taken it rarely on an as needed basis and feels it would help her anxiety if she could have a small amount on hand at the facility. Patient reports if provider is agreeable to send to the nursing department at [facility]. MARGOT Tobar M Robin, RN 10/03/2024 11:46 AM Signed Pt checking on her request for xanax Rx. See message below. Adeel Hayes MD 10/04/2024 2:57 AM Addendum Noted last RX from 02/11 for 0.25mg pill Not sure where to send RX Since does not take often, i wrote for 1 pill once daily as needed for 14 pills; needs to have a time frame with [facility] RX orders, so wrote for 30 days, but may keep the RX on hand at [place] to keep on hand to use as needed for occasional episode of anxiety. Gisele Sheehan LPN 10/04/2024 8:05 AM Signed Spoke with nurse at [facility]. Order for medication needs to be sent to [facility]. Copy of this encounter has been faxed to [facility] at [phone] Adeel Hayes MD 10/05/2024 3:07 PM Signed The following approved medication requests have been transmitted electronically. Requested Prescriptions Signed Prescriptions Disp Refills ALPRAZolam (XANAX) 0.25 mg tablet 14 tablet 0 Sig: Take 1 tablet by mouth once daily as needed for anxiety for up to 30 days. Authorizing Provider: ADEEL HAYES MD Allergies As of Date: 09/25/2024 Noted Allergy Reaction SIMVASTATIN 05/08/2019 14 - Other: See Comments Comments: Flu like sx, body aches AMOXICILLIN 06/02/2005 2 - Rash ASA (SALICYLATES) 06/02/2005 Comments: if not coated FLAGYL (METRONIDAZOLE HCL) 06/02/2005 LISINOPRIL 06/02/2005 PENICILLINS 06/02/2005 2 - Rash Date Reviewed: 09/09/2024 Reviewed by: Sabina Briseno LPN - Fully Assessed Reason for Visit: Patient Question [4267] Primary Visit Diagnosis:Anxiety state [F41.1] Order(s):ALPRAZolam (XANAX) 0.25 mg tabletTake 1 tablet by mouth once daily as needed for anxiety for up to 30 days.Disp: 14 tabletRfl: 0 Prescriptions as of 10/06/2024 - ALPRAZolam (XANAX) 0.25 mg tablet Take 1 tablet by mouth once daily as needed for anxiety for up to 30 days. - sertraline (ZOLOFT) 25 mg tablet Take 1 tablet by mouth once daily. - doxepin capsule 10 mg Take 1 capsule by mouth daily at bedtime. - atenolol (TENORMIN) 50 mg tablet Take 1 tablet by mouth once daily. - atenolol (TENORMIN) 50 mg tablet Take 1 tablet by mouth once daily. - vit C/E/Zn/coppr/lutein/ zeaxan (PRESERVISION AREDS-2 ORAL) Take 1 tablet by mouth once daily. - omeprazole (PRILOSEC) 20 mg capsule Take 1 capsule by mouth once daily. - OAT BRAN ORAL Take 2 tablets by mouth once daily. - gemfibrozil (LOPID) 600 mg tablet Take 1 tablet by mouth two times a day. - calcium carbonate (CALTRATE 600 ORAL) Take 1 tablet by mouth once daily. - docusate sodium (STOOL SOFTENER ORAL) Take 2 capsules by mouth daily at bedtime. - VITAMIN E ACETATE ORAL Take 1 capsule by mouth once daily. - Ascorbic Acid-Collagen (COLLAGEN PLUS VITAMIN C) 125-740 mg cap Take 1 capsule by mouth once daily. - cyanocobalamin (VITAMIN B-12) 1,000 mcg tab Take 1,000 mcg by mouth once daily. - UULRKDJ-MGALZBEWF-LP NC ORAL Take 1 tablet by mouth once daily. - guaifenesin/dextrome thorphan (MUCINEX DM ORAL) Take 1 tablet by mouth once daily as needed. - fexofenadine (LETICIA) 60 mg tablet Take 60 mg by mouth once daily as needed. - polyethylene glycol 3350 (MIRALAX) 17 gram/dose powder Take 17 g by mouth once daily. - aspirin, enteric coated (ASPIRIN, ENTERIC COATED) 81 mg EC tablet Take 81 mg by mouth once daily. - cholecalciferol(BATSHEVA MIN D 2,000 UNIT CAP) Take by mouth. - OMEGA 3 550 MG CAP Take one(1) tablet daily. - CALCIUM + D 600 MG-200 UNIT ORAL TAB Take by mouth. - TYLENOL EXTRA STRENGTH 500 MG ORAL TAB Take two(2) tablets every four(4) to six(6) hours as needed. Meds Comments as of 09/09/2024: [facility] medication. Patient is unsure what she takes. 09/09/2024 Problem List As Of Date 09/25/2024 Noted Resolved Fibromyalgia [M79.7] 06/02/2005 PERSISTENT INSOMNIA [G47.00] 06/02/2005 Essential hypertension [I10] 06/02/2005 ESOPHAGEAL REFLUX [K21.9] 06/02/2005 Reactive depression [F32.9] Macular degeneration (senile) of retina [H35.30] CARPAL TUNNEL SYNDROME [G56.00] Obesity [E66.9] Anxiety state [F41.1] 05/11/2006 OSTEOARTHROS NOS-L/LEG [[id number]] 09/24/2008 Impaired Fasting Glucose [R73.01] 03/22/2010 Xerosis cutis [L85.3] 01/10/2013 [employer] (more content not included)... Normal [facility] 09-16-2024 MERARIN Telephone (INTMWS) DODIE LI ([id number]) 1945 F Date Time Provider Department 09/16/24 ADEEL HAYES During your visit today, we recorded the following information about you: Deidra Flores RN 09/16/2024 12:06 PM Signed Pt called in asking if Dr Hayes takes [facility]. I told her I didn't know, but I could send a message through to Dr Hayes's office. I also told her she could call her insurance company and they should have a list of providers they cover. Allergies As of Date: 09/16/2024 Noted Allergy Reaction SIMVASTATIN 05/08/2019 14 - Other: See Comments Comments: Flu like sx, body aches AMOXICILLIN 06/02/2005 2 - Rash ASA (SALICYLATES) 06/02/2005 Comments: if not coated FLAGYL (METRONIDAZOLE HCL) 06/02/2005 LISINOPRIL 06/02/2005 PENICILLINS 06/02/2005 2 - Rash Date Reviewed: 09/09/2024 Reviewed by: Sabina Briseno LPN - Fully Assessed Reason for Visit: Provider takes insurance [Other] Prescriptions as of 09/18/2024 - doxepin capsule 10 mg Take 1 capsule by mouth daily at bedtime. - atenolol (TENORMIN) 50 mg tablet Take 1 tablet by mouth once daily. - atenolol (TENORMIN) 50 mg tablet Take 1 tablet by mouth once daily. - vit C/E/Zn/coppr/lutein/ zeaxan (PRESERVISION AREDS-2 ORAL) Take 1 tablet by mouth once daily. - omeprazole (PRILOSEC) 20 mg capsule Take 1 capsule by mouth once daily. - OAT BRAN ORAL Take 2 tablets by mouth once daily. - gemfibrozil (LOPID) 600 mg tablet Take 1 tablet by mouth two times a day. - calcium carbonate (CALTRATE 600 ORAL) Take 1 tablet by mouth once daily. - docusate sodium (STOOL SOFTENER ORAL) Take 2 capsules by mouth daily at bedtime. - VITAMIN E ACETATE ORAL Take 1 capsule by mouth once daily. - Ascorbic Acid-Collagen (COLLAGEN PLUS VITAMIN C) 125-740 mg cap Take 1 capsule by mouth once daily. - cyanocobalamin (VITAMIN B-12) 1,000 mcg tab Take 1,000 mcg by mouth once daily. - IBGTRWD-CFQOANDRA-YA NC ORAL Take 1 tablet by mouth once daily. - guaifenesin/dextrome thorphan (MUCINEX DM ORAL) Take 1 tablet by mouth once daily as needed. - fexofenadine (LETICIA) 60 mg tablet Take 60 mg by mouth once daily as needed. - polyethylene glycol 3350 (MIRALAX) 17 gram/dose powder Take 17 g by mouth once daily. - aspirin, enteric coated (ASPIRIN, ENTERIC COATED) 81 mg EC tablet Take 81 mg by mouth once daily. - cholecalciferol(BATSHEVA MIN D 2,000 UNIT CAP) Take by mouth. - OMEGA 3 550 MG CAP Take one(1) tablet daily. - CALCIUM + D 600 MG-200 UNIT ORAL TAB Take by mouth. - TYLENOL EXTRA STRENGTH 500 MG ORAL TAB Take two(2) tablets every four(4) to six(6) hours as needed. Meds Comments as of 09/09/2024: [facility] medication. Patient is unsure what she takes. 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] 01/10/2013 Intradermal nevus [D23.9] 01/10/2013 Acrochordon [L91.8] 01/10/2013 Pain in right hip [M25.551] 03/06/2019 Dizziness [R42] 10/23/2021 Status post right hip replacement [Z96.641] 10/23/2021 Hypertriglyceridemia [E78.1] 10/23/2021 Encounter Status:Closed by DEIDRA FLORES on 09/18/24 [facility] Telephone (INTMWS) JADODIE Natarajan ([id number]) 1945 F Date Time Provider Department 09/16/24 ADEEL HAYES INTMWS During your visit today, we recorded the following information about you: Leila Verduzco LPN 09/16/2024 1:45 PM Signed Fax rec'd from [facility] asking for rx to be sent to [facility] [place] [facility] for sertraline 25mg one tablet daily #90 with 3 refills. Please review. This medicine is not on pts med list. Last seen in office with pcp 07/09/24. Adeel Hayes MD 09/18/2024 6:56 PM Signed Verify with patient if she wants to take this med. Our medlist states that she either did not start the med or she stopped taking it due to thinking the med made her feel groggy. Looks like last time was filled was 06/23/24 per Medication Dispense History. Deidra Flores RN 09/18/2024 7:18 PM Signed Called and left a detailed voicemail notifying [facility] nurse [facility] of providers message. Clinic phone number was left for the nurse to call back and answer providers questions. Called Pt and no answer. Pt did not have voicemail set up. Will need to call back. MARGOT Dozier Stephanie, RN 09/22/2024 10:38 AM Signed Colette Whitten LPN from [facility] calls and states that patient has been on medication since being admitted to their facility on 08/04/2024. Medication was listed on patient's history and physical and other paperwork that was faxed over to [facility]. [facility] has not noticed any adverse effects while patient has been on medication. Patient has not be groggy. Colette would like for patient to continue medication since she has been taking this medication. Please review and advise, MARGOT Mckeon Liza D, MD 09/22/2024 5:06 PM Signed Noted The following approved medication requests have been transmitted electronically. Requested Prescriptions Signed Prescriptions Disp Refills sertraline (ZOLOFT) 25 mg tablet 90 tablet 3 Sig: Take 1 tablet by mouth once daily. Authorizing Provider: ADEEL HAYES MD Babulski, Amanda, RN 09/22/2024 5:11 PM Signed Gricelda nurse from [facility] called and is notified of providers message and instructions. She voices understanding and states they received the fax this morning. Deidra Flores RN Allergies As of Date: 09/16/2024 Noted Allergy Reaction SIMVASTATIN 05/08/2019 14 - Other: See Comments Comments: Flu like sx, body aches AMOXICILLIN 06/02/2005 2 - Rash ASA (SALICYLATES) 06/02/2005 Comments: if not coated FLAGYL (METRONIDAZOLE HCL) 06/02/2005 LISINOPRIL 06/02/2005 PENICILLINS 06/02/2005 2 - Rash Date Reviewed: 09/09/2024 Reviewed by: Sabina Briseno LPN - Fully Assessed Reason for Visit: Orders [681] Order(s):sertraline (ZOLOFT) 25 mg tabletTake 1 tablet by mouth once daily.Disp: 90 tabletRfl: 3 Prescriptions as of 09/22/2024 - sertraline (ZOLOFT) 25 mg tablet Take 1 tablet by mouth once daily. - doxepin capsule 10 mg Take 1 capsule by mouth daily at bedtime. - atenolol (TENORMIN) 50 mg tablet Take 1 tablet by mouth once daily. - atenolol (TENORMIN) 50 mg tablet Take 1 tablet by mouth once daily. - vit C/E/Zn/coppr/lutein/ zeaxan (PRESERVISION AREDS-2 ORAL) Take 1 tablet by mouth once daily. - omeprazole (PRILOSEC) 20 mg capsule Take 1 capsule by mouth once daily. - OAT BRAN ORAL Take 2 tablets by mouth once daily. - gemfibrozil (LOPID) 600 mg tablet Take 1 tablet by mouth two times a day. - calcium carbonate (CALTRATE 600 ORAL) Take 1 tablet by mouth once daily. - docusate sodium (STOOL SOFTENER ORAL) Take 2 capsules by mouth daily at bedtime. - VITAMIN E ACETATE ORAL Take 1 capsule by mouth once daily. - Ascorbic Acid-Collagen (COLLAGEN PLUS VITAMIN C) 125-740 mg cap Take 1 capsule by mouth once daily. - cyanocobalamin (VITAMIN B-12) 1,000 mcg tab Take 1,000 mcg by mouth once daily. - UQDBIIL-KEQAGWSDM-DS NC ORAL Take 1 tablet by mouth once daily. - guaifenesin/dextrome thorphan (MUCINEX DM ORAL) Take 1 tablet by mouth once daily as needed. - fexofenadine (LETICIA) 60 mg tablet Take 60 mg by mouth once daily as needed. - polyethylene glycol 3350 (MIRALAX) 17 gram/dose powder Take 17 g by mouth once daily. - aspirin, enteric coated (ASPIRIN, ENTERIC COATED) 81 mg EC tablet Take 81 mg by mouth once daily. - cholecalciferol(BATSHEVA MIN D 2,000 UNIT CAP) Take by mouth. - OMEGA 3 550 MG CAP Take one(1) tablet daily. - CALCIUM + D 600 MG-200 UNIT ORAL TAB Take by mouth. - TYLENOL EXTRA STRENGTH 500 MG ORAL TAB Take two(2) tablets every four(4) to six(6) hours as needed. Meds Comments as of 09/09/2024: [facility] medication. Patient is unsure what she takes. 09/09/2024 Problem List As Of Date 09/16/2024 Noted Resolved Fibromyalgia [M79.7] 06/02/2005 PERSISTENT INSOMNIA [G47.00] 06/02/2005 Essential hypertension [I10] 06/02/2005 ESOP (more content not included)... Normal [facility] CNOVon 09-09-2024 CNOV Office Visit (PODIWS) DODIE LI ([id number]) 1945 F Date Time Provider Department 09/09/24 11:15 AM VICTORIA ASHLEY During your visit today, we recorded the following information about you: Gabi Victoria 09/09/2024 11:38 AM Signed Subjective: Patient presents to clinic c/o painful toenails. They state that the nails are especially painful with shoe gear and pressure. Patient states that nails 1 b/l are painful. No other pedal complaints at this time. Patient states no change in medications or medical history since last visit. Objective: Patient presents to clinic ambulating in [facility] Vasc: DP and PT pulses are palpable bilateral. CFT is less than 5 seconds bilateral. Skin temperature is warm to cool proximal to distal bilateral. There is mild edema or varicosities noted. Neuro: Protective sensation is intact to the foot and toes when tested with the 5.07 SWM bilateral. Vibratory sensation is decreased at the hallux IPJ bilateral. The hallux is downgoing bilateral. Derm: Nails 1-5 b/l are painful, discolored-yellow, thick, crumbly, dystrophic and with subungal debris. Skin is of normal turgor, texture and hair growth is present bilateral. There are minimal callus of right 5th toe. No ulcerations, scars, verruca or other lesions noted. Ortho: Muscle strength is 5/5 for all pedal groups tested. Ankle joint DF is decreased with the knee extended with no pain or crepitus noted. 1st MPJ ROM is decreased bilateral. Assessment: (B35.1) Onychomycosis (primary encounter diagnosis) (M79.675) Pain in toe of left foot (M79.674) Pain in toe of right foot Plan: Patient was seen and evaluated. Nails 1-5 bilateral were debrided in length and thickness. Small bleed to right 5th toe. Band aide applied. Discussed removal of left great toenail in the future. Patient is not interested. Small callus reduced to right 5th toe with dremmel. Patient to follow-up in 5 months Victoria Ashley DPM Referring Provider: VICTORIA ASHLEY [[id number]] Allergies As of Date: 09/09/2024 Noted Allergy Reaction SIMVASTATIN 05/08/2019 14 - Other: See Comments Comments: Flu like sx, body aches AMOXICILLIN 06/02/2005 2 - Rash ASA (SALICYLATES) 06/02/2005 Comments: if not coated FLAGYL (METRONIDAZOLE HCL) 06/02/2005 LISINOPRIL 06/02/2005 PENICILLINS 06/02/2005 2 - Rash Date Reviewed: 09/09/2024 Reviewed by: Sabina Briseno LPN - Fully Assessed Reason for Visit: Established Patient [175] Follow Up [171] nail care [Other] Established Patient [175] Follow Up [171] nail care [Other] Primary Visit Diagnosis:Onychomyco sis [B35.1] Other Visit Diagnoses:Pain in toe of left foot [M79.675] Pain in toe of right foot [M79.674] Prescriptions as of 09/09/2024 - doxepin capsule 10 mg Take 1 capsule by mouth daily at bedtime. - atenolol (TENORMIN) 50 mg tablet Take 1 tablet by mouth once daily. - atenolol (TENORMIN) 50 mg tablet Take 1 tablet by mouth once daily. - vit C/E/Zn/coppr/lutein/ zeaxan (PRESERVISION AREDS-2 ORAL) Take 1 tablet by mouth once daily. - omeprazole (PRILOSEC) 20 mg capsule Take 1 capsule by mouth once daily. - OAT BRAN ORAL Take 2 tablets by mouth once daily. - gemfibrozil (LOPID) 600 mg tablet Take 1 tablet by mouth two times a day. - calcium carbonate (CALTRATE 600 ORAL) Take 1 tablet by mouth once daily. - docusate sodium (STOOL SOFTENER ORAL) Take 2 capsules by mouth daily at bedtime. - VITAMIN E ACETATE ORAL Take 1 capsule by mouth once daily. - Ascorbic Acid-Collagen (COLLAGEN PLUS VITAMIN C) 125-740 mg cap Take 1 capsule by mouth once daily. - cyanocobalamin (VITAMIN B-12) 1,000 mcg tab Take 1,000 mcg by mouth once daily. - JKCSGWT-LDPLKTOGN-JT NC ORAL Take 1 tablet by mouth once daily. - guaifenesin/dextrome thorphan (MUCINEX DM ORAL) Take 1 tablet by mouth once daily as needed. - fexofenadine (LETICIA) 60 mg tablet Take 60 mg by mouth once daily as needed. - polyethylene glycol 3350 (MIRALAX) 17 gram/dose powder Take 17 g by mouth once daily. - aspirin, enteric coated (ASPIRIN, ENTERIC COATED) 81 mg EC tablet Take 81 mg by mouth once daily. - cholecalciferol(BATSHEVA MIN D 2,000 UNIT CAP) Take by mouth. - OMEGA 3 550 MG CAP Take one(1) tablet daily. - CALCIUM + D 600 MG-200 UNIT ORAL TAB Take by mouth. - TYLENOL EXTRA STRENGTH 500 MG ORAL TAB Take two(2) tablets every four(4) to six(6) hours as needed. Meds Comments as of 09/09/2024: [facility] disp[facility] medication. Patient is unsure what she takes. 09/09/2024 Problem List As Of Date 09/09/2024 Noted Resolved Fibromyalgia [M79.7] 06/02/2005 PERSISTENT INSOMNIA [G47.00] 06/02/2005 Essential hypertension [I10] 06/02/2005 ESOPHAGEAL REFLUX [K21.9] 06/02/2005 Reactive depression [F32.9] Macular degeneration (senile) of retina [H35.30] CARPAL TUNNEL SYNDROME [G56.00] Ob (more content not included)... [facility] Tele[facility] (INTMWS) DODIE LI ([id number]) 1945 F Date Time Provider Department 08/11/24 ADEEL HAYES INTMWS During your visit today, we recorded the following information about you: Ariana Hernandez LPN 08/11/2024 10:04 AM Signed 1)Patient calling recently moved to assisted living at [facility]. She is asking if Dr Hayes makes rounds there and if she is still her PCP? 2)Patient asking to have her Miralax order changed from daily to as needed. She normally never takes it unless needed. She keeps refusing it, had taken the miralax 3 days in row and she said making issues with her stomach and bowels. New order needs to notify the nurses there. Please advise Adeel Hayes MD 08/12/2024 10:05 AM Signed 1) Can follow with patient at [facility] and round there as her PCP. She can still come to the office if she prefers. I think I completed forms for [facility] admission. 2) Okay to change Miralax to as needed. Can give verbal order to [facility] so they can send formal order for me to sign unless they need a printed order. Adeel Hayes MD 08/12/2024 8:25 PM Signed I wrote an order on fax from [facility] earlier today to change Miralax to once daily Ariana Fritz LPN 08/13/2024 10:37 AM Signed Phoned patient and call was hung up on. Try again later. Chelsi Osorio LPN 08/13/2024 2:43 PM Signed Left a message for pt to call the office and ask to speak to a nurse. MANJEET Tavares Krystle, RN 08/13/2024 3:39 PM Signed Patient returns call and message reviewed. Patient requests that provider come to [facility] to visit and let her know ahead of time so she is available. Patient also asking for orders to be able to manage OTC treatments such as band aids, polysporin, Tums, preparation H, and tylenol specifically as it frustrating to have to wait for 2-3 days on nursing staff to provide. Daniela Gordon, Adeel Lopez MD 08/13/2024 6:59 PM Signed 1) Noted RE; request to be seen at [facility] (instead of coming to office). Will try to notify ahead of time. Verify if there are days of the week that she is usually not available. 2) Wonder if the wait for those things was due to not having all her admission orders right away when was admitted. In any case, can give order to [facility] that she may have band aids, polysporin, TUMS and PrepH in her room to use as needed per package directions. Clarify dose of Tylenol that she has that wants to dose self as needed and with [facility] if okay with order to self dispense Tylenol with an order as requested. Rey Aleman RN 08/15/2024 11:34 AM Addendum Spoke with pt, and given provider's message. Pt reports Thurs works good for her. Pt states Wed is probably not a good day. Pt hopes pcp lets her know when she is coming. Pt reports after the first of the year, she will have new insurance and the new insurance will cover the doctor there, Dr. Stack, but will not cover Dr. Hayes. Spoke with [facility] nurse, Corina, and asked about the items pt reported she would like to have in her room (OTC band aids, polysporin, tums, prep H, AND tylenol 325 mg) Corina will check with facility to see if these items are ok, but states she knows for sure pt cannot have bandaids or polysporin because it's a skin issue, and they have to do skin reports. States pt has to tell them when she is having a skin issue. Corina will call back to let pcp know what she finds out. Adeel Hayes MD 08/15/2024 11:52 AM Signed Noted. Adeel Hayes MD Allergies As of Date: 08/11/2024 Noted Allergy Reaction SIMVASTATIN 05/08/2019 14 - Other: See Comments Comments: Flu like sx, body aches AMOXICILLIN 06/02/2005 2 - Rash ASA (SALICYLATES) 06/02/2005 Comments: if not coated FLAGYL (METRONIDAZOLE HCL) 06/02/2005 LISINOPRIL 06/02/2005 PENICILLINS 06/02/2005 2 - Rash Date Reviewed: 07/09/2024 Reviewed by: Angeline Tobin LPN - Fully Assessed Reason for Visit: Patient Question [1847] Orders [681] Prescriptions as of 08/15/2024 - doxepin capsule 10 mg Take 1 capsule by mouth daily at bedtime. - atenolol (TENORMIN) 50 mg tablet Take 1 tablet by mouth once daily. - atenolol (TENORMIN) 50 mg tablet Take 1 tablet by mouth once daily. - vit C/E/Zn/coppr/lutein/ zeaxan (PRESERVISION AREDS-2 ORAL) Take 1 tablet by mouth once daily. - omeprazole (PRILOSEC) 20 mg capsule Take 1 capsule by mouth once daily. - OAT BRAN ORAL Take 2 tablets by mouth once daily. - gemfibrozil (LOPID) 600 mg tablet Take 1 tablet by mouth two times a day. - calcium carbonate (CALTRATE 600 ORAL) Take 1 tablet by mouth once daily. - docusate sodium (STOOL SOFTENER ORAL) Take 2 capsules by mouth daily at bedtime. - VITAMIN E ACETATE ORAL Take 1 capsule by mouth once daily. - Ascorbic Acid-Collagen (COLLAGEN PLUS VITAMIN C) 125-740 mg cap Take (more content not included)... Normal [facility] 07-30-2024 ALEX Telephone (CLAIREWS) DODIE LI ([id number]) 1945 F Date Time Provider Department 07/30/24 ADEEL HAYES During your visit today, we recorded the following information about you: Janet Frias LPN 07/30/2024 4:13 PM Signed Kellie calling from [facility], she is requesting an order for admission to assisted living. Also asking when order is ready, to also fax face sheet, med list, HANDP AND ASHLEY to [phone]. MANJEET Rae Rosa, APRN.DONOR RELATIONS OFFICER 07/30/2024 4:16 PM Signed Please return call and let them know we could send an order however last office note from Adeel Hayes MD is not signed yet and we don't have an HANDP but we do have a medicare wellness visit from May so would they accept that? Patient is scheduled with me on 08/04 so we can do an HANDP then. Please check with them. Thanks. Gisele Sheehan LPN 07/30/2024 4:33 PM Signed Attempted to contact Marva. Message was left asking her to return the call. Records that are currently available have been faxed to number listed below. Allergies As of Date: 07/30/2024 Noted Allergy Reaction SIMVASTATIN 05/08/2019 14 - Other: See Comments Comments: Flu like sx, body aches AMOXICILLIN 06/02/2005 2 - Rash ASA (SALICYLATES) 06/02/2005 Comments: if not coated FLAGYL (METRONIDAZOLE HCL) 06/02/2005 LISINOPRIL 06/02/2005 PENICILLINS 06/02/2005 2 - Rash Date Reviewed: 07/09/2024 Reviewed by: Angeline Tobin LPN - Fully Assessed Reason for Visit: Orders for admission [Other] Prescriptions as of 08/08/2024 - doxepin capsule 10 mg Take 1 capsule by mouth daily at bedtime. - atenolol (TENORMIN) 50 mg tablet Take 1 tablet by mouth once daily. - atenolol (TENORMIN) 50 mg tablet Take 1 tablet by mouth once daily. - vit C/E/Zn/coppr/lutein/ zeaxan (PRESERVISION AREDS-2 ORAL) Take 1 tablet by mouth once daily. - omeprazole (PRILOSEC) 20 mg capsule Take 1 capsule by mouth once daily. - OAT BRAN ORAL Take 2 tablets by mouth once daily. - gemfibrozil (LOPID) 600 mg tablet Take 1 tablet by mouth two times a day. - calcium carbonate (CALTRATE 600 ORAL) Take 1 tablet by mouth once daily. - docusate sodium (STOOL SOFTENER ORAL) Take 2 capsules by mouth daily at bedtime. - VITAMIN E ACETATE ORAL Take 1 capsule by mouth once daily. - Ascorbic Acid-Collagen (COLLAGEN PLUS VITAMIN C) 125-740 mg cap Take 1 capsule by mouth once daily. - cyanocobalamin (VITAMIN B-12) 1,000 mcg tab Take 1,000 mcg by mouth once daily. - RECDLMX-CLKHGRYPO-UJ NC ORAL Take 1 tablet by mouth once daily. - guaifenesin/dextrome thorphan (MUCINEX DM ORAL) Take 1 tablet by mouth once daily as needed. - fexofenadine (LETICIA) 60 mg tablet Take 60 mg by mouth once daily as needed. - polyethylene glycol 3350 (MIRALAX) 17 gram/dose powder Take 17 g by mouth once daily. - aspirin, enteric coated (ASPIRIN, ENTERIC COATED) 81 mg EC tablet Take 81 mg by mouth once daily. - cholecalciferol(BATSHEVA MIN D 2,000 UNIT CAP) Take by mouth. - OMEGA 3 550 MG CAP Take one(1) tablet daily. - CALCIUM + D 600 MG-200 UNIT ORAL TAB Take by mouth. - TYLENOL EXTRA STRENGTH 500 MG ORAL TAB Take two(2) tablets every four(4) to six(6) hours as needed. Problem List As Of Date 07/30/2024 Noted Resolved Fibromyalgia [M79.7] 06/02/2005 PERSISTENT INSOMNIA [G47.00] 06/02/2005 Essential hypertension [I10] 06/02/2005 ESOPHAGEAL REFLUX [K21.9] 06/02/2005 Reactive depression [F32.9] Macular degeneration (senile) of retina [H35.30] CARPAL TUNNEL SYNDROME [G56.00] Obesity [E66.9] Anxiety state [F41.1] 05/11/2006 OSTEOARTHROS NOS-L/LEG [[id number]] 09/24/2008 Impaired Fasting Glucose [R73.01] 03/22/2010 Xerosis cutis [L85.3] 01/10/2013 Cracked skin [R23.4] 01/10/2013 Neurofibroma of back [D36.17] 01/10/2013 Intradermal nevus [D23.9] 01/10/2013 Acrochordon [L91.8] 01/10/2013 Pain in right hip [M25.551] 03/06/2019 Dizziness [R42] 10/23/2021 Status post right hip replacement [Z96.641] 10/23/2021 Hypertriglyceridemia [E78.1] 10/23/2021 Encounter Status:Closed by GISELE SHEEHAN on 08/08/24 [facility] [place] 07-23-2024 [facility] Telephone (INTMWS) DODIE LI ([id number]) 1945 F Date Time Provider Department 07/23/24 ADEEL HAYES During your visit today, we recorded the following information about you: Ariana Hernandez LPN 07/23/2024 1:19 PM Signed Patient calling was asking how much water should she be drinking all day. she takes her blood pressure medication at 11 am even though she gets up at 7 am. She said she was still voiding during the night. Advised her to take her blood pressure medication earlier in the morning when she wakes up. she said she drink liquid with each meal but only drinks not even 1800 ml cup during the day. she said she voids small amounts but not having any UTI symptoms. She said she would try to take her medication earlier and drink more during the day and cut down fluids in the evening. Destini Lee APRN.DONOR RELATIONS OFFICER 07/28/2024 1:57 PM Signed Noted, she is scheduled for an office visit next week, plan to discuss with the visit. Allergies As of Date: 07/23/2024 Noted Allergy Reaction SIMVASTATIN 05/08/2019 14 - Other: See Comments Comments: Flu like sx, body aches AMOXICILLIN 06/02/2005 2 - Rash ASA (SALICYLATES) 06/02/2005 Comments: if not coated FLAGYL (METRONIDAZOLE HCL) 06/02/2005 LISINOPRIL 06/02/2005 PENICILLINS 06/02/2005 2 - Rash Date Reviewed: 07/09/2024 Reviewed by: Angeline Tobin LPN - Fully Assessed Reason for Visit: Patient Update [1234] Prescriptions as of 07/31/2024 - doxepin capsule 10 mg Take 1 capsule by mouth daily at bedtime. - atenolol (TENORMIN) 50 mg tablet Take 1 tablet by mouth once daily. - atenolol (TENORMIN) 50 mg tablet Take 1 tablet by mouth once daily. - vit C/E/Zn/coppr/lutein/ zeaxan (PRESERVISION AREDS-2 ORAL) Take 1 tablet by mouth once daily. - omeprazole (PRILOSEC) 20 mg capsule Take 1 capsule by mouth once daily. - OAT BRAN ORAL Take 2 tablets by mouth once daily. - gemfibrozil (LOPID) 600 mg tablet Take 1 tablet by mouth two times a day. - calcium carbonate (CALTRATE 600 ORAL) Take 1 tablet by mouth once daily. - docusate sodium (STOOL SOFTENER ORAL) Take 2 capsules by mouth daily at bedtime. - VITAMIN E ACETATE ORAL Take 1 capsule by mouth once daily. - Ascorbic Acid-Collagen (COLLAGEN PLUS VITAMIN C) 125-740 mg cap Take 1 capsule by mouth once daily. - cyanocobalamin (VITAMIN B-12) 1,000 mcg tab Take 1,000 mcg by mouth once daily. - KCPAUSG-BYYGMJFNX-TI NC ORAL Take 1 tablet by mouth once daily. - guaifenesin/dextrome thorphan (MUCINEX DM ORAL) Take 1 tablet by mouth once daily as needed. - fexofenadine (LETICIA) 60 mg tablet Take 60 mg by mouth once daily as needed. - polyethylene glycol 3350 (MIRALAX) 17 gram/dose powder Take 17 g by mouth once daily. - aspirin, enteric coated (ASPIRIN, ENTERIC COATED) 81 mg EC tablet Take 81 mg by mouth once daily. - cholecalciferol(BATSHEVA MIN D 2,000 UNIT CAP) Take by mouth. - OMEGA 3 550 MG CAP Take one(1) tablet daily. - CALCIUM + D 600 MG-200 UNIT ORAL TAB Take by mouth. - TYLENOL EXTRA STRENGTH 500 MG ORAL TAB Take two(2) tablets every four(4) to six(6) hours as needed. Problem List As Of Date 07/23/2024 Noted Resolved Fibromyalgia [M79.7] 06/02/2005 PERSISTENT INSOMNIA [G47.00] 06/02/2005 Essential hypertension [I10] 06/02/2005 ESOPHAGEAL REFLUX [K21.9] 06/02/2005 Reactive depression [F32.9] Macular degeneration (senile) of retina [H35.30] CARPAL TUNNEL SYNDROME [G56.00] Obesity [E66.9] Anxiety state [F41.1] 05/11/2006 OSTEOARTHROS NOS-L/LEG [[id number]] 09/24/2008 Impaired Fasting Glucose [R73.01] 03/22/2010 Xerosis cutis [L85.3] 01/10/2013 Cracked skin [R23.4] 01/10/2013 Neurofibroma of back [D36.17] 01/10/2013 Intradermal nevus [D23.9] 01/10/2013 Acrochordon [L91.8] 01/10/2013 Pain in right hip [M25.551] 03/06/2019 Dizziness [R42] 10/23/2021 Status post right hip replacement [Z96.641] 10/23/2021 Hypertriglyceridemia [E78.1] 10/23/2021 Encounter Status:Closed by ARIANA HERNANDEZ on 07/31/24 [facility] 07-18-2024 CNPN Telephone (INTMWS) DODIE LI ([id number]) 1945 F Date Time Provider Department 07/18/24 ADEEL HAYES INTMWS During your visit today, we recorded the following information about you: Rey Aleman RN 07/18/2024 1:10 PM Signed Patient phoned to let pcp know, she saw Dr. Baugh today, to check her ears to see if her balance issues were related to inner ear. Doctor told her, her ears are ok, and to talk with her pcp about atenolol being a possible cause. Patient reports she has dizziness just before she falls. Reports if she turns her head she will feel dizzy sometimes. Reports her macular degeneration also affects her balance. Patient has a rolator walker (with seat and brakes) but her reflex is not quick enough to squeeze the brake in time to stop. Dr. Baugh advised her to use the old fashion walker as she can control that better. Asking pcp to advise on atenolol possibly being the cause. Destini Lee APRN.DONOR RELATIONS OFFICER 07/22/2024 3:15 PM Signed Noted, she has an appointment coming up on 08/04 so we can discuss the medication then and make changes if appropriate. Allergies As of Date: 07/18/2024 Noted Allergy Reaction SIMVASTATIN 05/08/2019 14 - Other: See Comments Comments: Flu like sx, body aches AMOXICILLIN 06/02/2005 2 - Rash ASA (SALICYLATES) 06/02/2005 Comments: if not coated FLAGYL (METRONIDAZOLE HCL) 06/02/2005 LISINOPRIL 06/02/2005 PENICILLINS 06/02/2005 2 - Rash Date Reviewed: 07/09/2024 Reviewed by: Angeline Tobin LPN - Fully Assessed Reason for Visit: Patient Update [2074] Patient Question [2227] Prescriptions as of 08/04/2024 - doxepin capsule 10 mg Take 1 capsule by mouth daily at bedtime. - atenolol (TENORMIN) 50 mg tablet Take 1 tablet by mouth once daily. - atenolol (TENORMIN) 50 mg tablet Take 1 tablet by mouth once daily. - vit C/E/Zn/coppr/lutein/ zeaxan (PRESERVISION AREDS-2 ORAL) Take 1 tablet by mouth once daily. - omeprazole (PRILOSEC) 20 mg capsule Take 1 capsule by mouth once daily. - OAT BRAN ORAL Take 2 tablets by mouth once daily. - gemfibrozil (LOPID) 600 mg tablet Take 1 tablet by mouth two times a day. - calcium carbonate (CALTRATE 600 ORAL) Take 1 tablet by mouth once daily. - docusate sodium (STOOL SOFTENER ORAL) Take 2 capsules by mouth daily at bedtime. - VITAMIN E ACETATE ORAL Take 1 capsule by mouth once daily. - Ascorbic Acid-Collagen (COLLAGEN PLUS VITAMIN C) 125-740 mg cap Take 1 capsule by mouth once daily. - cyanocobalamin (VITAMIN B-12) 1,000 mcg tab Take 1,000 mcg by mouth once daily. - MXSYOFF-XQAYAGGUW-JC NC ORAL Take 1 tablet by mouth once daily. - guaifenesin/dextrome thorphan (MUCINEX DM ORAL) Take 1 tablet by mouth once daily as needed. - fexofenadine (LETICIA) 60 mg tablet Take 60 mg by mouth once daily as needed. - polyethylene glycol 3350 (MIRALAX) 17 gram/dose powder Take 17 g by mouth once daily. - aspirin, enteric coated (ASPIRIN, ENTERIC COATED) 81 mg EC tablet Take 81 mg by mouth once daily. - cholecalciferol(BATSHEVA MIN D 2,000 UNIT CAP) Take by mouth. - OMEGA 3 550 MG CAP Take one(1) tablet daily. - CALCIUM + D 600 MG-200 UNIT ORAL TAB Take by mouth. - TYLENOL EXTRA STRENGTH 500 MG ORAL TAB Take two(2) tablets every four(4) to six(6) hours as needed. Problem List As Of Date 07/18/2024 Noted Resolved Fibromyalgia [M79.7] 06/02/2005 PERSISTENT INSOMNIA [G47.00] 06/02/2005 Essential hypertension [I10] 06/02/2005 ESOPHAGEAL REFLUX [K21.9] 06/02/2005 Reactive depression [F32.9] Macular degeneration (senile) of retina [H35.30] CARPAL TUNNEL SYNDROME [G56.00] Obesity [E66.9] Anxiety state [F41.1] 05/11/2006 OSTEOARTHROS NOS-L/LEG [[id number]] 09/24/2008 Impaired Fasting Glucose [R73.01] 03/22/2010 Xerosis cutis [L85.3] 01/10/2013 Cracked skin [R23.4] 01/10/2013 Neurofibroma of back [D36.17] 01/10/2013 Intradermal nevus [D23.9] 01/10/2013 Acrochordon [L91.8] 01/10/2013 Pain in right hip [M25.551] 03/06/2019 Dizziness [R42] 10/23/2021 Status post right hip replacement [Z96.641] 10/23/2021 Hypertriglyceridemia [E78.1] 10/23/2021 Encounter Status:Closed by Rey ALEMAN on 08/04/24 [facility] [place] 07-16-2024 MERARIN Telephone (INTMWS) DODIE LI ([id number]) 1945 F Date Time Provider Department 07/16/24 ADEEL HAYES INTMWS During your visit today, we recorded the following information about you: Meredith Varela RN 07/16/2024 1:09 PM Signed Patient calling to state after receiving home care instructions related to constipation earlier today, she was able to successfully have a bowel movement. Patient advised to contact PCP office for any further concerns or questions. Meredith Varela RN Allergies As of Date: 07/16/2024 Noted Allergy Reaction SIMVASTATIN 05/08/2019 14 - Other: See Comments Comments: Flu like sx, body aches AMOXICILLIN 06/02/2005 2 - Rash ASA (SALICYLATES) 06/02/2005 Comments: if not coated FLAGYL (METRONIDAZOLE HCL) 06/02/2005 LISINOPRIL 06/02/2005 PENICILLINS 06/02/2005 2 - Rash Date Reviewed: 07/09/2024 Reviewed by: Anegline Tobin LPN - Fully Assessed Reason for Visit: Patient Update [1234] Prescriptions as of 07/16/2024 - doxepin capsule 10 mg Take 1 capsule by mouth daily at bedtime. - atenolol (TENORMIN) 50 mg tablet Take 1 tablet by mouth once daily. - atenolol (TENORMIN) 50 mg tablet Take 1 tablet by mouth once daily. - vit C/E/Zn/coppr/lutein/ zeaxan (PRESERVISION AREDS-2 ORAL) Take 1 tablet by mouth once daily. - omeprazole (PRILOSEC) 20 mg capsule Take 1 capsule by mouth once daily. - OAT BRAN ORAL Take 2 tablets by mouth once daily. - gemfibrozil (LOPID) 600 mg tablet Take 1 tablet by mouth two times a day. - calcium carbonate (CALTRATE 600 ORAL) Take 1 tablet by mouth once daily. - docusate sodium (STOOL SOFTENER ORAL) Take 2 capsules by mouth daily at bedtime. - VITAMIN E ACETATE ORAL Take 1 capsule by mouth once daily. - Ascorbic Acid-Collagen (COLLAGEN PLUS VITAMIN C) 125-740 mg cap Take 1 capsule by mouth once daily. - cyanocobalamin (VITAMIN B-12) 1,000 mcg tab Take 1,000 mcg by mouth once daily. - DISUOSQ-JPVMUVCUM-WM NC ORAL Take 1 tablet by mouth once daily. - guaifenesin/dextrome thorphan (MUCINEX DM ORAL) Take 1 tablet by mouth once daily as needed. - fexofenadine (LETICIA) 60 mg tablet Take 60 mg by mouth once daily as needed. - polyethylene glycol 3350 (MIRALAX) 17 gram/dose powder Take 17 g by mouth once daily. - aspirin, enteric coated (ASPIRIN, ENTERIC COATED) 81 mg EC tablet Take 81 mg by mouth once daily. - cholecalciferol(BATSHEVA MIN D 2,000 UNIT CAP) Take by mouth. - OMEGA 3 550 MG CAP Take one(1) tablet daily. - CALCIUM + D 600 MG-200 UNIT ORAL TAB Take by mouth. - TYLENOL EXTRA STRENGTH 500 MG ORAL TAB Take two(2) tablets every four(4) to six(6) hours as needed. Problem List As Of Date 07/16/2024 Noted Resolved Fibromyalgia [M79.7] 06/02/2005 PERSISTENT INSOMNIA [G47.00] 06/02/2005 Essential hypertension [I10] 06/02/2005 ESOPHAGEAL REFLUX [K21.9] 06/02/2005 Reactive depression [F32.9] Macular degeneration (senile) of retina [H35.30] CARPAL TUNNEL SYNDROME [G56.00] Obesity [E66.9] Anxiety state [F41.1] 05/11/2006 OSTEOARTHROS NOS-L/LEG [[id number]] 09/24/2008 Impaired Fasting Glucose [R73.01] 03/22/2010 Xerosis cutis [L85.3] 01/10/2013 Cracked skin [R23.4] 01/10/2013 Neurofibroma of back [D36.17] 01/10/2013 Intradermal nevus [D23.9] 01/10/2013 Acrochordon [L91.8] 01/10/2013 Pain in right hip [M25.551] 03/06/2019 Dizziness [R42] 10/23/2021 Status post right hip replacement [Z96.641] 10/23/2021 Hypertriglyceridemia [E78.1] 10/23/2021 Encounter Status:Closed by MEREDITH VARELA on 07/16/24 [facility] 07-14-2024 [facility] [place] Telephone (INTMWS) DODIE LI ([id number]) 1945 F Date Time Provider Department 07/14/24 ADEEL HAYES INTMWS During your visit today, we recorded the following information about you: Rey Aleman RN 07/14/2024 9:39 AM Signed Patient reports Destini ordered zoloft for her, and she has taken 4 doses. It puts her into a deep sleep, but wakes up at 2:30 am and unable to go back to sleep. Doxepin was d/c'd when zoloft was ordered. Prefers to take doxepin, although it made her feel too drouggy when woke up in the morning. Patient prefers the drouggy feeling over waking up at 2:30 am and unable to go back to sleep. Reports she falls easily due to macular degeneration and vertigo and waking up at 2:30 am and unable to go back to sleep puts her at risk for falls. Reports she is seeing ENT on Sunday due to balance. Please advise and phone patient with reply: [phone] Destini Lee APRN.DONOR RELATIONS OFFICER 07/14/2024 1:01 PM Signed Okay to go back to the doxepin, med list updated, we can have her try the 6 mg dose of doxepin if still having falls at night secondary to this medication. Gisele Sheehan LPN 07/14/2024 1:58 PM Signed Spoke with patient and she will go back on the Doxepin 10 mg she stated that insurance would not cover the 6 mg dosing due to cost. She was unsure why that was the case. Does not want a new script sent to pharmacy. States she still has plenty left from last fill. Allergies As of Date: 07/14/2024 Noted Allergy Reaction SIMVASTATIN 05/08/2019 14 - Other: See Comments Comments: Flu like sx, body aches AMOXICILLIN 06/02/2005 2 - Rash ASA (SALICYLATES) 06/02/2005 Comments: if not coated FLAGYL (METRONIDAZOLE HCL) 06/02/2005 LISINOPRIL 06/02/2005 PENICILLINS 06/02/2005 2 - Rash Date Reviewed: 07/09/2024 Reviewed by: Angeline Tobin LPN - Fully Assessed Reason for Visit: Patient Question [1477] Order(s):doxepin capsule 10 mgTake 1 capsule by mouth daily at bedtime.Disp: Rfl: Prescriptions as of 07/14/2024 - doxepin capsule 10 mg Take 1 capsule by mouth daily at bedtime. - atenolol (TENORMIN) 50 mg tablet Take 1 tablet by mouth once daily. - atenolol (TENORMIN) 50 mg tablet Take 1 tablet by mouth once daily. - vit C/E/Zn/coppr/lutein/ zeaxan (PRESERVISION AREDS-2 ORAL) Take 1 tablet by mouth once daily. - omeprazole (PRILOSEC) 20 mg capsule Take 1 capsule by mouth once daily. - OAT BRAN ORAL Take 2 tablets by mouth once daily. - gemfibrozil (LOPID) 600 mg tablet Take 1 tablet by mouth two times a day. - calcium carbonate (CALTRATE 600 ORAL) Take 1 tablet by mouth once daily. - docusate sodium (STOOL SOFTENER ORAL) Take 2 capsules by mouth daily at bedtime. - VITAMIN E ACETATE ORAL Take 1 capsule by mouth once daily. - Ascorbic Acid-Collagen (COLLAGEN PLUS VITAMIN C) 125-740 mg cap Take 1 capsule by mouth once daily. - cyanocobalamin (VITAMIN B-12) 1,000 mcg tab Take 1,000 mcg by mouth once daily. - RZCMIMH-CSVIVGOXK-LR NC ORAL Take 1 tablet by mouth once daily. - guaifenesin/dextrome thorphan (MUCINEX DM ORAL) Take 1 tablet by mouth once daily as needed. - fexofenadine (LETICIA) 60 mg tablet Take 60 mg by mouth once daily as needed. - polyethylene glycol 3350 (MIRALAX) 17 gram/dose powder Take 17 g by mouth once daily. - aspirin, enteric coated (ASPIRIN, ENTERIC COATED) 81 mg EC tablet Take 81 mg by mouth once daily. - cholecalciferol(BATSHEVA MIN D 2,000 UNIT CAP) Take by mouth. - OMEGA 3 550 MG CAP Take one(1) tablet daily. - CALCIUM + D 600 MG-200 UNIT ORAL TAB Take by mouth. - TYLENOL EXTRA STRENGTH 500 MG ORAL TAB Take two(2) tablets every four(4) to six(6) hours as needed. Problem List As Of Date 07/14/2024 Noted Resolved Fibromyalgia [M79.7] 06/02/2005 PERSISTENT INSOMNIA [G47.00] 06/02/2005 Essential hypertension [I10] 06/02/2005 ESOPHAGEAL REFLUX [K21.9] 06/02/2005 Reactive depression [F32.9] Macular degeneration (senile) of retina [H35.30] CARPAL TUNNEL SYNDROME [G56.00] Obesity [E66.9] Anxiety state [F41.1] 05/11/2006 OSTEOARTHROS NOS-L/LEG [[id number]] 09/24/2008 Impaired Fasting Glucose [R73.01] 03/22/2010 Xerosis cutis [L85.3] 01/10/2013 Cracked skin [R23.4] 01/10/2013 Neurofibroma of back [D36.17] 01/10/2013 Intradermal nevus [D23.9] 01/10/2013 Acrochordon [L91.8] 01/10/2013 Pain in right hip [M25.551] 03/06/2019 Dizziness [R42] 10/23/2021 Status post right hip replacement [Z96.641] 10/23/2021 Hypertriglyceridemia [E78.1] 10/23/2021 Prescriptions ordered this encounter Disp Refills Start End DOXEPIN 10 MG CAPSULE 07/14/2024 Class: Med Update Route: ORAL Sig: Take 1 capsule by mouth daily at bedtime. Medications Discontinued During This Encounter Prescriptions - sertraline (ZOLOFT) 25 mg tablet (Discontinued) Reported on 07/09/2024 - Doxepin 6 mg tab (Discontinued) Take 1 tablet by mouth daily (more content not included)... Normal [facility] [place] 07-10-2024 [facility] [place] Telephone (NAVWST) DODIE LI ([id number]) 1945 F Date Time Provider Department 07/10/24 MARYJO LORA During your visit today, we recorded the following information about you: Maryjo Lora MSW 07/10/2024 12:34 PM Signed Saad called patient to discuss in home care and senior care care questions. Patient notes that she is getting ready to go to an appt and asks this Sw to call her back tomorrow after 10am. Sw will try call to patient tomorrow after 10. Maryjo Lora MSW 07/11/2024 11:35 AM Signed Sw spoke with patient and reports that that she spoke with [facility] and was told they would cost $30 an hour. Sw and patient discussed [employer] [facility], [facility] and Sw provide that phone number to patient. Sw also provided patient with [facility] as an option for charge aide option. Sw provided patient with [facility] phone number to reach out to [place] office to check on [place] rates. Patient reports that she will call both [employer] [facility] and [facility] and obtain [place] quotes. Sw and patient discussed [facility] Agency on Aging and Passport program. Sw noted that Passport is a Medicaid eligible program through [facility]. Sw noted nurse or social service worker makes home visit from [facility] for assessments and to determine eligibility. Patient notes that she does not want to apply for Medicaid at this time. Sw noted that she would check in later on next week to see if patient made determination on home lighting adviser agency or needs more options to check on. Destini Lee APRN.DONOR RELATIONS OFFICER 07/11/2024 2:12 PM Signed Noted, follow up at upcoming visit Maryjo Lora MSW 07/17/2024 11:56 AM Signed Saad called to follow up with patient regarding home care assistance noted below. No answer, Sw left message that SW will try call again beginning of next week 07/21 to check in with patient. Maryjo Lora MSW 07/21/2024 1:51 PM Signed Saad spoke with patient regarding home care resources. Patient notedI am having a visitor soon and can't speak for too long. Sw asked about calling another time. Patient noted no, now is fine. Patient stated I have not checked with home care agencies. I will try and make calls when I am ready for home care assistance. Sw asked patient if she had any further needs. Patient stated no, not right now. Patient is aware that she may call Sw at any time for further assistance. Allergies As of Date: 07/10/2024 Noted Allergy Reaction SIMVASTATIN 05/08/2019 14 - Other: See Comments Comments: Flu like sx, body aches AMOXICILLIN 06/02/2005 2 - Rash ASA (SALICYLATES) 06/02/2005 Comments: if not coated FLAGYL (METRONIDAZOLE HCL) 06/02/2005 LISINOPRIL 06/02/2005 PENICILLINS 06/02/2005 2 - Rash Date Reviewed: 07/09/2024 Reviewed by: Angeline Tobin LPN - Fully Assessed Prescriptions as of 07/21/2024 - doxepin capsule 10 mg Take 1 capsule by mouth daily at bedtime. - atenolol (TENORMIN) 50 mg tablet Take 1 tablet by mouth once daily. - atenolol (TENORMIN) 50 mg tablet Take 1 tablet by mouth once daily. - vit C/E/Zn/coppr/lutein/ zeaxan (PRESERVISION AREDS-2 ORAL) Take 1 tablet by mouth once daily. - omeprazole (PRILOSEC) 20 mg capsule Take 1 capsule by mouth once daily. - OAT BRAN ORAL Take 2 tablets by mouth once daily. - gemfibrozil (LOPID) 600 mg tablet Take 1 tablet by mouth two times a day. - calcium carbonate (CALTRATE 600 ORAL) Take 1 tablet by mouth once daily. - docusate sodium (STOOL SOFTENER ORAL) Take 2 capsules by mouth daily at bedtime. - VITAMIN E ACETATE ORAL Take 1 capsule by mouth once daily. - Ascorbic Acid-Collagen (COLLAGEN PLUS VITAMIN C) 125-740 mg cap Take 1 capsule by mouth once daily. - cyanocobalamin (VITAMIN B-12) 1,000 mcg tab Take 1,000 mcg by mouth once daily. - ZQDCRXG-FYIJNOBLP-FD NC ORAL Take 1 tablet by mouth once daily. - guaifenesin/dextrome thorphan (MUCINEX DM ORAL) Take 1 tablet by mouth once daily as needed. - fexofenadine (LETICIA) 60 mg tablet Take 60 mg by mouth once daily as needed. - polyethylene glycol 3350 (MIRALAX) 17 gram/dose powder Take 17 g by mouth once daily. - aspirin, enteric coated (ASPIRIN, ENTERIC COATED) 81 mg EC tablet Take 81 mg by mouth once daily. - cholecalciferol(BATSHEVA MIN D 2,000 UNIT CAP) Take by mouth. - OMEGA 3 550 MG CAP Take one(1) tablet daily. - CALCIUM + D 600 MG-200 UNIT ORAL TAB Take by mouth. - TYLENOL EXTRA STRENGTH 500 MG ORAL TAB Take two(2) tablets every four(4) to six(6) hours as needed. Problem List As Of Date 07/10/2024 Noted Resolved Fibromyalgia [M79.7] 06/02/2005 PERSISTENT INSOMNIA [G47.00] 06/02/2005 Essential hypertension [I10] 06/02/2005 ESOPHAGEAL REFLUX [K21.9] 06/02/2005 Reactive depression [F32.9] Macular degeneration (senile) of retina [H35.30] CARPAL TUNNEL SYNDROME [G56.00] Obesity [ (more content not included)... Normal [facility] Telephone (INTMWS) DODIE LI ([id number]) 1945 F Date Time Provider Department 07/10/24 ADEEL HAYES INTMWS During your visit today, we recorded the following information about you: Leila Verduzco LPN 07/10/2024 12:05 PM Signed Electronic PA rec'd and completed for doxepin 6mg. This was reviewed and denied. Patient Name: Dodie Li Patient : 1945 Status of Request: Deny Medication Name: Doxepin Tab 6mg [facility]/ND: [id number] Decision Notes: DOXEPIN TAB 6MG is denied because it is not on your plan's Drug List (formulary). Medication authorization requires the following: (1) You need to try three (3) of these covered drugs: (a) Quviviq. (b) Ramelteon. (c) Trazodone. (2) OR your doctor needs to give us specific medical reasons why three (3) of the covered drug(s) are not appropriate for you. Reviewed by: Sandra dodd Janice, LPN 07/10/2024 12:19 PM Signed Called pt to review. She declines to try a formulary medicine. She is reluctant to start a new medicine. She will continue the doxepin 10mg She then reports she never started the zoloft from 06/23/24 when she saw Destini. She is asking if she should start this? Destini Lee APRN.DONOR RELATIONS OFFICER 07/11/2024 2:12 PM Signed See the other encounter regarding this. Allergies As of Date: 07/10/2024 Noted Allergy Reaction SIMVASTATIN 05/08/2019 14 - Other: See Comments Comments: Flu like sx, body aches AMOXICILLIN 06/02/2005 2 - Rash ASA (SALICYLATES) 06/02/2005 Comments: if not coated FLAGYL (METRONIDAZOLE HCL) 06/02/2005 LISINOPRIL 06/02/2005 PENICILLINS 06/02/2005 2 - Rash Date Reviewed: 07/09/2024 Reviewed by: Angeline Tobin LPN - Fully Assessed Reason for Visit: Insurance Authorization [[id number]] Prescriptions as of 07/11/2024 - Doxepin 6 mg tab Take 1 tablet by mouth daily at bedtime. - atenolol (TENORMIN) 50 mg tablet Take 1 tablet by mouth once daily. - atenolol (TENORMIN) 50 mg tablet Take 1 tablet by mouth once daily. - sertraline (ZOLOFT) 25 mg tablet Take 1 tablet by mouth daily at bedtime. - vit C/E/Zn/coppr/lutein/ zeaxan (PRESERVISION AREDS-2 ORAL) Take 1 tablet by mouth once daily. - omeprazole (PRILOSEC) 20 mg capsule Take 1 capsule by mouth once daily. - OAT BRAN ORAL Take 2 tablets by mouth once daily. - gemfibrozil (LOPID) 600 mg tablet Take 1 tablet by mouth two times a day. - calcium carbonate (CALTRATE 600 ORAL) Take 1 tablet by mouth once daily. - docusate sodium (STOOL SOFTENER ORAL) Take 2 capsules by mouth daily at bedtime. - VITAMIN E ACETATE ORAL Take 1 capsule by mouth once daily. - Ascorbic Acid-Collagen (COLLAGEN PLUS VITAMIN C) 125-740 mg cap Take 1 capsule by mouth once daily. - cyanocobalamin (VITAMIN B-12) 1,000 mcg tab Take 1,000 mcg by mouth once daily. - JUKFGZE-UTSRSFYXB-DZ NC ORAL Take 1 tablet by mouth once daily. - guaifenesin/dextrome thorphan (MUCINEX DM ORAL) Take 1 tablet by mouth once daily as needed. - fexofenadine (LETICIA) 60 mg tablet Take 60 mg by mouth once daily as needed. - polyethylene glycol 3350 (MIRALAX) 17 gram/dose powder Take 17 g by mouth once daily. - aspirin, enteric coated (ASPIRIN, ENTERIC COATED) 81 mg EC tablet Take 81 mg by mouth once daily. - cholecalciferol(BATSHEVA MIN D 2,000 UNIT CAP) Take by mouth. - OMEGA 3 550 MG CAP Take one(1) tablet daily. - CALCIUM + D 600 MG-200 UNIT ORAL TAB Take by mouth. - TYLENOL EXTRA STRENGTH 500 MG ORAL TAB Take two(2) tablets every four(4) to six(6) hours as needed. Problem List As Of Date 07/10/2024 Noted Resolved Fibromyalgia [M79.7] 06/02/2005 PERSISTENT INSOMNIA [G47.00] 06/02/2005 Essential hypertension [I10] 06/02/2005 ESOPHAGEAL REFLUX [K21.9] 06/02/2005 Reactive depression [F32.9] Macular degeneration (senile) of retina [H35.30] CARPAL TUNNEL SYNDROME [G56.00] Obesity [E66.9] Anxiety state [F41.1] 05/11/2006 OSTEOARTHROS NOS-L/LEG [[id number]] 09/24/2008 Impaired Fasting Glucose [R73.01] 03/22/2010 Xerosis cutis [L85.3] 01/10/2013 Cracked skin [R23.4] 01/10/2013 Neurofibroma of back [D36.17] 01/10/2013 Intradermal nevus [D23.9] 01/10/2013 Acrochordon [L91.8] 01/10/2013 Pain in right hip [M25.551] 03/06/2019 Dizziness [R42] 10/23/2021 Status post right hip replacement [Z96.641] 10/23/2021 Hypertriglyceridemia [E78.1] 10/23/2021 Encounter Status:Closed by DESTINI LEE on 07/11/24 [facility] CNPN Telephone (INTMWS) DODIE LI ([id number]) 1945 F Date Time Provider Department 07/10/24 ADEEL HAYES INTMWS During your visit today, we recorded the following information about you: Rey Aleman RN 07/10/2024 3:06 PM Signed Patient phoned asking if she should take the doxepin and zoloft at the same time? Noted in Destini's notes doxepin was discontinued and patient was to take zoloft instead. Patient states she cannot see well and couldn't read her after visit instructions and wasn't aware Destini discontinued her doxepin. Reports doxepin makes her really sleepy, and wondered if zoloft can make her sleepy also. Advised zoloft can make her feel sleepy. Patient states she doesn't drive, but she is worried about falling. Reports she's been taking the doxepin, and hasn't started the zoloft yet. States she will wait for reply from Destini or Dr. Hayes before she starts the zoloft. Patient plans to take the doxepin tonight and not the zoloft. Patient aware Destini and doctor are not in office today. Please advise and phone patient with reply. Destini Lee APRN.DONOR RELATIONS OFFICER 07/11/2024 7:48 AM Signed We had discussed with her visit that the goal is to reduce her falls at night time, it seems the doxepin is contributing to this. I would like her to stop the doxepin and start Zoloft as this should not cause as much tiredness/drowsiness as the doxepin does. Gisele Sheehan LPN 07/11/2024 10:29 AM Signed PATIENT NOTIFIED OF SAME. Allergies As of Date: 07/10/2024 Noted Allergy Reaction SIMVASTATIN 05/08/2019 14 - Other: See Comments Comments: Flu like sx, body aches AMOXICILLIN 06/02/2005 2 - Rash ASA (SALICYLATES) 06/02/2005 Comments: if not coated FLAGYL (METRONIDAZOLE HCL) 06/02/2005 LISINOPRIL 06/02/2005 PENICILLINS 06/02/2005 2 - Rash Date Reviewed: 07/09/2024 Reviewed by: Angeline Tobin LPN - Fully Assessed Reason for Visit: Medication Problem [65] Prescriptions as of 07/11/2024 - Doxepin 6 mg tab Take 1 tablet by mouth daily at bedtime. - atenolol (TENORMIN) 50 mg tablet Take 1 tablet by mouth once daily. - atenolol (TENORMIN) 50 mg tablet Take 1 tablet by mouth once daily. - sertraline (ZOLOFT) 25 mg tablet Take 1 tablet by mouth daily at bedtime. - vit C/E/Zn/coppr/lutein/ zeaxan (PRESERVISION AREDS-2 ORAL) Take 1 tablet by mouth once daily. - omeprazole (PRILOSEC) 20 mg capsule Take 1 capsule by mouth once daily. - OAT BRAN ORAL Take 2 tablets by mouth once daily. - gemfibrozil (LOPID) 600 mg tablet Take 1 tablet by mouth two times a day. - calcium carbonate (CALTRATE 600 ORAL) Take 1 tablet by mouth once daily. - docusate sodium (STOOL SOFTENER ORAL) Take 2 capsules by mouth daily at bedtime. - VITAMIN E ACETATE ORAL Take 1 capsule by mouth once daily. - Ascorbic Acid-Collagen (COLLAGEN PLUS VITAMIN C) 125-740 mg cap Take 1 capsule by mouth once daily. - cyanocobalamin (VITAMIN B-12) 1,000 mcg tab Take 1,000 mcg by mouth once daily. - [id number]-[id number]-ZA NC ORAL Take 1 tablet by mouth once daily. - guaifenesin/dextrome thorphan (MUCINEX DM ORAL) Take 1 tablet by mouth once daily as needed. - fexofenadine (LETICIA) 60 mg tablet Take 60 mg by mouth once daily as needed. - polyethylene glycol 3350 (MIRALAX) 17 gram/dose powder Take 17 g by mouth once daily. - aspirin, enteric coated (ASPIRIN, ENTERIC COATED) 81 mg EC tablet Take 81 mg by mouth once daily. - cholecalciferol(BATSHEVA MIN D 2,000 UNIT CAP) Take by mouth. - OMEGA 3 550 MG CAP Take one(1) tablet daily. - CALCIUM + D 600 MG-200 UNIT ORAL TAB Take by mouth. - TYLENOL EXTRA STRENGTH 500 MG ORAL TAB Take two(2) tablets every four(4) to six(6) hours as needed. Problem List As Of Date 07/10/2024 Noted Resolved Fibromyalgia [M79.7] 06/02/2005 PERSISTENT INSOMNIA [G47.00] 06/02/2005 Essential hypertension [I10] 06/02/2005 ESOPHAGEAL REFLUX [K21.9] 06/02/2005 Reactive depression [F32.9] Macular degeneration (senile) of retina [H35.30] CARPAL TUNNEL SYNDROME [G56.00] Obesity [E66.9] Anxiety state [F41.1] 05/11/2006 OSTEOARTHROS NOS-L/LEG [[id number]] 09/24/2008 Impaired Fasting Glucose [R73.01] 03/22/2010 Xerosis cutis [L85.3] 01/10/2013 Cracked skin [R23.4] 01/10/2013 Neurofibroma of back [D36.17] 01/10/2013 Intradermal nevus [D23.9] 01/10/2013 Acrochordon [L91.8] 01/10/2013 Pain in right hip [M25.551] 03/06/2019 Dizziness [R42] 10/23/2021 Status post right hip replacement [Z96.641] 10/23/2021 Hypertriglyceridemia [E78.1] 10/23/2021 Encounter Status:Closed by GISELE SHEEHAN on 07/11/24 [facility] CNOVon 07-09-2024 CNOV Office Visit (INTMWS) DODIE LI ([id number]) 1945 F Date Time Provider Department 07/09/24 2:40 PM ADEEL HAYES INTMWS During your visit today, we recorded the following information about you: Temperature Pulse Respiration Blood pressure 98.5 degrees 67/minute 16/minute 118/68 Weight 79.8 kg Adeel Hayes MD 08/18/2024 11:37 PM Signed This note was created using [employer]. Subjective Dodie Li is a 78 year old female. Patient presents with: Same Day Appointment: Balance issues SUBJECTIVE: Dodie Li is a 78 year old year old lady here today for same day follow up appointment for review of medical conditions. The patient is a 78-year-old female with a history of balance issues, presenting for evaluation of worsening balance and vision problems. The patient reports a decline in balance over the past month, accompanied by worsening vision, particularly in the right eye, which was previously her good eye. She describes the vision as distorted and notes that she can no longer see clearly out of the corner of her eye. She has experienced a crackling sensation in her ears and requests an otoscopic examination. She reports experiencing vertigo, describing a spinning sensation that occurs when she turns her head too quickly. This has led to multiple falls, with 3-4 incidents in the past month. The most recent fall occurred last Sunday when she was moving water to the sink and turned too quickly, resulting in a fall. She was not using her cane at the time and had just come out of the shower. She activated her medical alert system, and voyage management system operator responded, having to unlock the door to assist her. She denies loss of consciousness during these falls but describes the sensation as almost like somebody pushes me and it's, then it's over. I'm on the floor. She denies significant arthritis pain in her knees or hips but notes occasional discomfort if she stands for prolonged periods. She uses a cane and an old-fashioned walker with skids for mobility, having discontinued use of a rollator due to concerns about its speed on her slanted kitchen floor. She has not discussed her balance issues with her physical therapist, who visits her at home and focuses on seated exercises and leg kicks. The patient also reports persistent fatigue, stating, every time when I wake up, I'm still not awake. It's like I am so tired. She is currently taking 10 mg of doxepin for sleep but expresses a desire to reduce the dosage due to a hangover effect in the morning. She denies trying Zoloft, stating she was afraid it would make her more loopy and then I would fall again. She reports waking up 3-4 times per night and frequently moving between her couch, chair, and lift chair to find a comfortable sleeping position. She expresses frustration and depression due to her declining health and increasing isolation, stating, I'm just a mess, and I'm getting more depressed all the time because I don't know how to deal with this. And I'm by myself. She has limited family support, with only cousins nearby who assist with writing checks and paying bills. She has no close friends and is concerned about her ability to live independently as her vision worsens. She is currently working with an eye doctor but is unable to afford a recommended treatment costing $5,000, which is not covered by her insurance. She expresses fear about the future, stating, I'm scared. I don't want to keep falling. She inquires about options for assisted living and home health services, noting that she has heard about services costing $30 per hour. She is concerned about the financial implications of assisted living, stating, I guess I'm not going to have any choice, really. She expresses a desire to stay at home but acknowledges the challenges of doing so without additional support. PAST MEDICAL HISTORY Diagnosis Date Carpal tunnel syndrome Depressive disorder, not elsewhere classified Esophageal reflux Macular degeneration (senile) of retina, unspecified Myalgia and myositis, unspecified Obesity, unspecified Unspecified essential hypertension Current Outpatient Medications Medication Sig sertraline (ZOLOFT) 25 mg tablet Take 1 tablet by mouth daily at bedtime. vit C/E/Zn/coppr/lutein/ zeaxan (PRESERVISION AREDS-2 ORAL) Take 1 tablet by mouth once daily. omeprazole (PRILOSEC) 20 mg capsule Take 1 capsule by mouth once daily. OAT BRAN ORAL Take 2 tablets by mouth once daily. Atenolol-Chlorthalid one 100-25 mg per tablet TAKE 1/2 TABLET ONE TIME DAILY potassium chloride ER (KLOR-CON M10) 10 mEq tablet Take 1 tablet by mouth once daily. gemfibrozil (LOPID) 600 mg tablet Take 1 tablet by mouth two times a day. calcium carbonate (CALTRATE 600 ORAL) Take 1 tablet by mouth once daily. docusate sodium (STOOL S (more content not included)... Normal [facility] 07-04-2024 [facility] [place] Telephone (INTMWS) DODIE LI ([id number]) 1945 F Date Time Provider Department 07/04/24 ADEEL HAYES INTWS During your visit today, we recorded the following information about you: Rey Aleman RN 07/04/2024 9:27 AM Signed Patient reports she spoke to someone earlier this morning that was going to schedule and appt with pcp for her. Asking if an appt was scheduled. Advised patient she is scheduled with pcp on 07-09-24 @ 2:40 pm. Patient states she needed to know this so she can arrange for transportation. Allergies As of Date: 07/04/2024 Noted Allergy Reaction SIMVASTATIN 05/08/2019 14 - Other: See Comments Comments: Flu like sx, body aches AMOXICILLIN 06/02/2005 2 - Rash ASA (SALICYLATES) 06/02/2005 Comments: if not coated FLAGYL (METRONIDAZOLE HCL) 06/02/2005 LISINOPRIL 06/02/2005 PENICILLINS 06/02/2005 2 - Rash Date Reviewed: 06/23/2024 Reviewed by: Destini Lee APRN.DONOR RELATIONS OFFICER - Fully Assessed Reason for Visit: Patient Question [1477] Prescriptions as of 07/04/2024 - sertraline (ZOLOFT) 25 mg tablet Take 1 tablet by mouth daily at bedtime. - vit C/E/Zn/coppr/lutein/ zeaxan (PRESERVISION AREDS-2 ORAL) Take 1 tablet by mouth once daily. - omeprazole (PRILOSEC) 20 mg capsule Take 1 capsule by mouth once daily. - OAT BRAN ORAL Take 2 tablets by mouth once daily. - Atenolol-Chlorthalid one 100-25 mg per tablet TAKE 1/2 TABLET ONE TIME DAILY - potassium chloride ER (KLOR-CON M10) 10 mEq tablet Take 1 tablet by mouth once daily. - gemfibrozil (LOPID) 600 mg tablet Take 1 tablet by mouth two times a day. - calcium carbonate (CALTRATE 600 ORAL) Take 1 tablet by mouth once daily. - docusate sodium (STOOL SOFTENER ORAL) Take 2 capsules by mouth daily at bedtime. - VITAMIN E ACETATE ORAL Take 1 capsule by mouth once daily. - Ascorbic Acid-Collagen (COLLAGEN PLUS VITAMIN C) 125-740 mg cap Take 1 capsule by mouth once daily. - cyanocobalamin (VITAMIN B-12) 1,000 mcg tab Take 1,000 mcg by mouth once daily. - [id number]-SKCPSSEDF-HK NC ORAL Take 1 tablet by mouth once daily. - guaifenesin/dextrome thorphan (MUCINEX DM ORAL) Take 1 tablet by mouth once daily as needed. - fexofenadine (LETICIA) 60 mg tablet Take 60 mg by mouth once daily as needed. - polyethylene glycol 3350 (MIRALAX) 17 gram/dose powder Take 17 g by mouth once daily. - aspirin, enteric coated (ASPIRIN, ENTERIC COATED) 81 mg EC tablet Take 81 mg by mouth once daily. - cholecalciferol(BATSHEVA MIN D 2,000 UNIT CAP) Take by mouth. - OMEGA 3 550 MG CAP Take one(1) tablet daily. - CALCIUM + D 600 MG-200 UNIT ORAL TAB Take by mouth. - TYLENOL EXTRA STRENGTH 500 MG ORAL TAB Take two(2) tablets every four(4) to six(6) hours as needed. Problem List As Of Date 07/04/2024 Noted Resolved Fibromyalgia [M79.7] 06/02/2005 PERSISTENT INSOMNIA [G47.00] 06/02/2005 Essential hypertension [I10] 06/02/2005 ESOPHAGEAL REFLUX [K21.9] 06/02/2005 Reactive depression [F32.9] Macular degeneration (senile) of retina [H35.30] CARPAL TUNNEL SYNDROME [G56.00] Obesity [E66.9] Anxiety state [F41.1] 05/11/2006 OSTEOARTHROS NOS-L/LEG [[id number]] 09/24/2008 Impaired Fasting Glucose [R73.01] 03/22/2010 Xerosis cutis [L85.3] 01/10/2013 Cracked skin [R23.4] 01/10/2013 Neurofibroma of back [D36.17] 01/10/2013 Intradermal nevus [D23.9] 01/10/2013 Acrochordon [L91.8] 01/10/2013 Pain in right hip [M25.551] 03/06/2019 Dizziness [R42] 10/23/2021 Status post right hip replacement [Z96.641] 10/23/2021 Hypertriglyceridemia [E78.1] 10/23/2021 Encounter Status:Closed by Rey ALEMAN on 07/04/24 [facility] CNOVon 06-23-2024 CNOV Office Visit (INTMWS) DODIE LI ([id number]) 1945 F Date Time Provider Department 06/23/24 1:00 PM DESTINI LEE INTReyWS During your visit today, we recorded the following information about you: Pulse Blood pressure Weight 72/minute 118/64 79.7 kg Destini Lee APRN.DONOR RELATIONS OFFICER 06/23/2024 1:28 PM Signed SUBJECTIVE Dodie Li is a 78 year old female here today for a check up on her medical problems. Chief Complaint Patient presents with: Diarrhea: 3-4 times a day with cramps. Treating with Imodium which seems to be helping. Question is something she eat that caused diarrhea Fall: is questioning if the doxepin is causing these falls usually during the middle of night when she wakes up to go potty. stated falls did not start until after she had hip replacement HPI Dodie Li is a 78 year old female. She is an established patient of Adeel Hayes MD. She notices that she is having more falls at night since increasing her doxepin. She feels more off balance, more tired. Not taking her Zoloft because was concerned about drowsiness. Having more tiredness/feeling effects in the morning. Diarrhea since Sunday, thinks it had garlic in potato pancakes she had. This is improving. Took imodium. Her medications were reviewed today and her list is now up to date. Medications Current Outpatient Medications Medication Sig vit C/E/Zn/coppr/lutein/ zeaxan (PRESERVISION AREDS-2 ORAL) Take 1 tablet by mouth once daily. omeprazole (PRILOSEC) 20 mg capsule Take 1 capsule by mouth once daily. OAT BRAN ORAL Take 2 tablets by mouth once daily. Atenolol-Chlorthalid one 100-25 mg per tablet TAKE 1/2 TABLET ONE TIME DAILY potassium chloride ER (KLOR-CON M10) 10 mEq tablet Take 1 tablet by mouth once daily. gemfibrozil (LOPID) 600 mg tablet Take 1 tablet by mouth two times a day. calcium carbonate (CALTRATE 600 ORAL) Take 1 tablet by mouth once daily. docusate sodium (STOOL SOFTENER ORAL) Take 2 capsules by mouth daily at bedtime. VITAMIN E ACETATE ORAL Take 1 capsule by mouth once daily. Ascorbic Acid-Collagen (COLLAGEN PLUS VITAMIN C) 125-740 mg cap Take 1 capsule by mouth once daily. cyanocobalamin (VITAMIN B-12) 1,000 mcg tab Take 1,000 mcg by mouth once daily. [id number]-[id number]-RB NC ORAL Take 1 tablet by mouth once daily. guaifenesin/dextrome thorphan (MUCINEX DM ORAL) Take 1 tablet by mouth once daily as needed. fexofenadine (LETICIA) 60 mg tablet Take 60 mg by mouth once daily as needed. aspirin, enteric coated (ASPIRIN, ENTERIC COATED) 81 mg EC tablet Take 81 mg by mouth once daily. cholecalciferol(BATSHEVA MIN D 2,000 UNIT CAP) Take by mouth. OMEGA 3 550 MG CAP Take one(1) tablet daily. TYLENOL EXTRA STRENGTH 500 MG ORAL TAB Take two(2) tablets every four(4) to six(6) hours as needed. sertraline (ZOLOFT) 25 mg tablet Take 1 tablet by mouth daily at bedtime. polyethylene glycol 3350 (MIRALAX) 17 gram/dose powder Take 17 g by mouth once daily. CALCIUM + D 600 MG-200 UNIT ORAL TAB Take by mouth. (Patient not taking: Reported on 11/30/2023) No current facility-administere d medications for this visit. ALLERGIES Allergen Reactions Simvastatin Other: See Comments Flu like sx, body aches Amoxicillin Rash Asa [Salicylates] if not coated Flagyl [Metronidazo* Lisinopril Penicillins Rash ACTIVE PROBLEM LIST Dizziness - 10/23/2021 Status Post Right Hip Replacement - 10/23/2021 Hypertriglyceridemia - 10/23/2021 Pain in Right Hip - 03/06/2019 Xerosis Cutis - 01/10/2013 Cracked Skin - 01/10/2013 Neurofibroma of Back - 01/10/2013 Intradermal Nevus - 01/10/2013 Acrochordon - 01/10/2013 Impaired Fasting Glucose - 03/22/2010 Osteoarthrosis, Unspecified Whether Generalized Or Localized, Lower Leg - 09/24/2008 Anxiety State - 05/11/2006 Reactive Depression Macular Degeneration (Senile) of Retina Carpal Tunnel Syndrome Obesity Fibromyalgia - 06/02/2005 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 Cardiovascular: Negative. Gastrointestinal: Positive for diarrhea. Psychiatric/Behavior al: Positive for sleep disturbance. OBJECTIVE BP 118/64 Pulse 72 Wt 175 lb 11.3 oz (79.7kg) SpO2 96% Physical Exam Vitals and nursing note reviewed. Constitutional: General: She is awake. She is not in acute distress. Appearance: Normal appearance. She is well-developed and well-groomed. She is not ill-appearing, toxic-appearing or diaphoretic. HENT: Head: Normocephalic. Right Ear: External ear normal. Left Ear: External ear normal. Nose: Nose normal. Eyes: (more content not included)... Normal [facility]20[facility]INT[facility] DODIE LI ([id number]) 1945 F Date Time Provider Department 06/23/24 ADEEL HAYES INTWS During your visit today, we recorded the following information about you: Chelsi Osorio LPN 06/23/2024 2:49 PM Signed Pt called in to have referral to [facility] faxed along with supporting information, face sheet, office notes and referral. Fax to [phone]. I also called [facility] to verify what they needed. Faxed everything and notified pt. Chelsi Osorio LPN Allergies As of Date: 06/23/2024 Noted Allergy Reaction SIMVASTATIN 05/08/2019 14 - Other: See Comments Comments: Flu like sx, body aches AMOXICILLIN 06/02/2005 2 - Rash ASA (SALICYLATES) 06/02/2005 Comments: if not coated FLAGYL (METRONIDAZOLE HCL) 06/02/2005 LISINOPRIL 06/02/2005 PENICILLINS 06/02/2005 2 - Rash Date Reviewed: 06/23/2024 Reviewed by: Destini Lee APRN.DONOR RELATIONS OFFICER - Fully Assessed Reason for Visit: referral to [facility] [Other] Prescriptions as of 06/23/2024 - sertraline (ZOLOFT) 25 mg tablet Take 1 tablet by mouth daily at bedtime. - vit C/E/Zn/coppr/lutein/ zeaxan (PRESERVISION AREDS-2 ORAL) Take 1 tablet by mouth once daily. - omeprazole (PRILOSEC) 20 mg capsule Take 1 capsule by mouth once daily. - OAT BRAN ORAL Take 2 tablets by mouth once daily. - Atenolol-Chlorthalid one 100-25 mg per tablet TAKE 1/2 TABLET ONE TIME DAILY - potassium chloride ER (KLOR-CON M10) 10 mEq tablet Take 1 tablet by mouth once daily. - gemfibrozil (LOPID) 600 mg tablet Take 1 tablet by mouth two times a day. - calcium carbonate (CALTRATE 600 ORAL) Take 1 tablet by mouth once daily. - docusate sodium (STOOL SOFTENER ORAL) Take 2 capsules by mouth daily at bedtime. - VITAMIN E ACETATE ORAL Take 1 capsule by mouth once daily. - Ascorbic Acid-Collagen (COLLAGEN PLUS VITAMIN C) 125-740 mg cap Take 1 capsule by mouth once daily. - cyanocobalamin (VITAMIN B-12) 1,000 mcg tab Take 1,000 mcg by mouth once daily. - [id number]-[id number]-[id number] NC ORAL Take 1 tablet by mouth once daily. - guaifenesin/dextrome thorphan (MUCINEX DM ORAL) Take 1 tablet by mouth once daily as needed. - fexofenadine (LETICIA) 60 mg tablet Take 60 mg by mouth once daily as needed. - polyethylene glycol 3350 (MIRALAX) 17 gram/dose powder Take 17 g by mouth once daily. - aspirin, enteric coated (ASPIRIN, ENTERIC COATED) 81 mg EC tablet Take 81 mg by mouth once daily. - cholecalciferol(BATSHEVA MIN D 2,000 UNIT CAP) Take by mouth. - OMEGA 3 550 MG CAP Take one(1) tablet daily. - CALCIUM + D 600 MG-200 UNIT ORAL TAB Take by mouth. - TYLENOL EXTRA STRENGTH 500 MG ORAL TAB Take two(2) tablets every four(4) to six(6) hours as needed. Problem List As Of Date 06/23/2024 Noted Resolved Fibromyalgia [M79.7] 06/02/2005 PERSISTENT INSOMNIA [G47.00] 06/02/2005 Essential hypertension [I10] 06/02/2005 ESOPHAGEAL REFLUX [K21.9] 06/02/2005 Reactive depression [F32.9] Macular degeneration (senile) of retina [H35.30] CARPAL TUNNEL SYNDROME [G56.00] Obesity [E66.9] Anxiety state [F41.1] 05/11/2006 OSTEOARTHROS NOS-L/LEG [[id number]] 09/24/2008 Impaired Fasting Glucose [R73.01] 03/22/2010 Xerosis cutis [L85.3] 01/10/2013 Cracked skin [R23.4] 01/10/2013 Neurofibroma of back [D36.17] 01/10/2013 Intradermal nevus [D23.9] 01/10/2013 Acrochordon [L91.8] 01/10/2013 Pain in right hip [M25.551] 03/06/2019 Dizziness [R42] 10/23/2021 Status post right hip replacement [Z96.641] 10/23/2021 Hypertriglyceridemia [E78.1] 10/23/2021 Encounter Status:Closed by CHELSI OSORIO on 06/23/24 [facility] Telephone (INTMWS) DODIE LI ([id number]) 1945 F Date Time Provider Department 06/23/24 ADEEL HAYES INTMWS During your visit today, we recorded the following information about you: Carla Bejarano RN 06/23/2024 9:23 AM Signed Patient calls with medication concerns. Patient has been on 10 mg Doxepin for years to help with sleep. Patient states that she has noticed that she has been feeling drowsy when she wakes up in the morning. Patient is concerned that the medication is doing this to her. Advised patient that she needs to set up appointment to discuss medication and drowsiness in the am. Patient voices understanding. Patient scheduled to see Destini today 06/23/2024. Carla Bejarano RN Allergies As of Date: 06/23/2024 Noted Allergy Reaction SIMVASTATIN 05/08/2019 14 - Other: See Comments Comments: Flu like sx, body aches AMOXICILLIN 06/02/2005 2 - Rash ASA (SALICYLATES) 06/02/2005 Comments: if not coated FLAGYL (METRONIDAZOLE HCL) 06/02/2005 LISINOPRIL 06/02/2005 PENICILLINS 06/02/2005 2 - Rash Date Reviewed: 06/23/2024 Reviewed by: Destini Lee APRN.DONOR RELATIONS OFFICER - Fully Assessed Reason for Visit: Patient Question [1477] Prescriptions as of 07/09/2024 - Doxepin 6 mg tab Take 1 tablet by mouth daily at bedtime. - atenolol (TENORMIN) 50 mg tablet Take 1 tablet by mouth once daily. - atenolol (TENORMIN) 50 mg tablet Take 1 tablet by mouth once daily. - sertraline (ZOLOFT) 25 mg tablet Take 1 tablet by mouth daily at bedtime. - vit C/E/Zn/coppr/lutein/ zeaxan (PRESERVISION AREDS-2 ORAL) Take 1 tablet by mouth once daily. - omeprazole (PRILOSEC) 20 mg capsule Take 1 capsule by mouth once daily. - OAT BRAN ORAL Take 2 tablets by mouth once daily. - gemfibrozil (LOPID) 600 mg tablet Take 1 tablet by mouth two times a day. - calcium carbonate (CALTRATE 600 ORAL) Take 1 tablet by mouth once daily. - docusate sodium (STOOL SOFTENER ORAL) Take 2 capsules by mouth daily at bedtime. - VITAMIN E ACETATE ORAL Take 1 capsule by mouth once daily. - Ascorbic Acid-Collagen (COLLAGEN PLUS VITAMIN C) 125-740 mg cap Take 1 capsule by mouth once daily. - cyanocobalamin (VITAMIN B-12) 1,000 mcg tab Take 1,000 mcg by mouth once daily. - GCHYWRF-GDMLFRNNS-TF NC ORAL Take 1 tablet by mouth once daily. - guaifenesin/dextrome thorphan (MUCINEX DM ORAL) Take 1 tablet by mouth once daily as needed. - fexofenadine (LETICIA) 60 mg tablet Take 60 mg by mouth once daily as needed. - polyethylene glycol 3350 (MIRALAX) 17 gram/dose powder Take 17 g by mouth once daily. - aspirin, enteric coated (ASPIRIN, ENTERIC COATED) 81 mg EC tablet Take 81 mg by mouth once daily. - cholecalciferol(BATSHEVA MIN D 2,000 UNIT CAP) Take by mouth. - OMEGA 3 550 MG CAP Take one(1) tablet daily. - CALCIUM + D 600 MG-200 UNIT ORAL TAB Take by mouth. - TYLENOL EXTRA STRENGTH 500 MG ORAL TAB Take two(2) tablets every four(4) to six(6) hours as needed. Problem List As Of Date 06/23/2024 Noted Resolved Fibromyalgia [M79.7] 06/02/2005 PERSISTENT INSOMNIA [G47.00] 06/02/2005 Essential hypertension [I10] 06/02/2005 ESOPHAGEAL REFLUX [K21.9] 06/02/2005 Reactive depression [F32.9] Macular degeneration (senile) of retina [H35.30] CARPAL TUNNEL SYNDROME [G56.00] Obesity [E66.9] Anxiety state [F41.1] 05/11/2006 OSTEOARTHROS NOS-L/LEG [[id number]] 09/24/2008 Impaired Fasting Glucose [R73.01] 03/22/2010 Xerosis cutis [L85.3] 01/10/2013 Cracked skin [R23.4] 01/10/2013 Neurofibroma of back [D36.17] 01/10/2013 Intradermal nevus [D23.9] 01/10/2013 Acrochordon [L91.8] 01/10/2013 Pain in right hip [M25.551] 03/06/2019 Dizziness [R42] 10/23/2021 Status post right hip replacement [Z96.641] 10/23/2021 Hypertriglyceridemia [E78.1] 10/23/2021 Encounter Status:Closed by CARLA BEJARANO on 06/23/24 Normal [facility] [place] 06-10-2024 CNPN Telephone (INTMWS) DODIE LI ([id number]) 1945 F Date Time Provider Department 06/10/24 ADEEL HAYES INTMWS During your visit today, we recorded the following information about you: Carla Bejarano RN 06/10/2024 8:18 AM Signed Patient calls and states that at last appointment provider had discussed with her that she may benefit from more physical therapy. Patient asking provider if she thinks that would be beneficial and if she does if orders can be place for home physical therapy? Patient had used [facility] previously for home health. Please review and advise, MARGOT Mckeon Rosa, APRN.DONOR RELATIONS OFFICER 06/11/2024 4:35 PM Signed PT would be a good idea, orders placed for in home PT with [facility], please fax orders. Gisele Sheehan LPN 06/13/2024 10:11 AM Signed Most recent home health services noted in chart [facility] Spoke with patient to confirm this was so and order for PT was faxed to [facility]. Daniela Gordon RN 06/13/2024 4:11 PM Signed Carla with [facility] calls to let provider know that they are unable to accept referral for HH d/t patients insurance. Attempted to contact patient with no answer and not able to leave a message. MARGOT Tobar Julia, LPN 06/16/2024 4:00 PM Signed Spoke with patient and explained that [facility] is not within her insurance's network. Did suggest that patient contact her insurance to see which agency is in network and then order can be faxed to that agency. Allergies As of Date: 06/10/2024 Noted Allergy Reaction SIMVASTATIN 05/08/2019 14 - Other: See Comments Comments: Flu like sx, body aches AMOXICILLIN 06/02/2005 2 - Rash ASA (SALICYLATES) 06/02/2005 Comments: if not coated FLAGYL (METRONIDAZOLE HCL) 06/02/2005 LISINOPRIL 06/02/2005 PENICILLINS 06/02/2005 2 - Rash Date Reviewed: 05/28/2024 Reviewed by: Angeline Tobin LPN - Fully Assessed Reason for Visit: Patient Question [1477] Primary Visit Diagnosis:Gait instability [R26.81] Other Visit Diagnoses:Balance problems [R26.89] Repeated falls [R29.6] Status post right hip replacement [Z96.641] Order(s):CONSULT TO PHYSICAL THERAPY [0362] Order #: [id number]: 1 FUTURE Prescriptions as of 06/16/2024 - vit C/E/Zn/coppr/lutein/ zeaxan (PRESERVISION AREDS-2 ORAL) Take 1 tablet by mouth once daily. - omeprazole (PRILOSEC) 20 mg capsule Take 1 capsule by mouth once daily. - OAT BRAN ORAL Take 2 tablets by mouth once daily. - Atenolol-Chlorthalid one 100-25 mg per tablet TAKE 1/2 TABLET ONE TIME DAILY - potassium chloride ER (KLOR-CON M10) 10 mEq tablet Take 1 tablet by mouth once daily. - gemfibrozil (LOPID) 600 mg tablet Take 1 tablet by mouth two times a day. - doxepin capsule 10 mg Take 1 capsule by mouth daily at bedtime. - calcium carbonate (CALTRATE 600 ORAL) Take 1 tablet by mouth once daily. - docusate sodium (STOOL SOFTENER ORAL) Take 2 capsules by mouth daily at bedtime. - VITAMIN E ACETATE ORAL Take 1 capsule by mouth once daily. - Ascorbic Acid-Collagen (COLLAGEN PLUS VITAMIN C) 125-740 mg cap Take 1 capsule by mouth once daily. - cyanocobalamin (VITAMIN B-12) 1,000 mcg tab Take 1,000 mcg by mouth once daily. - TDMXSKB-IGXPNVHKC-HJ NC ORAL Take 1 tablet by mouth once daily. - nystatin (MYCOSTATIN) powder Apply 1 application to affected area four times daily as needed (yeast infection). - guaifenesin/dextrome thorphan (MUCINEX DM ORAL) Take 1 tablet by mouth once daily as needed. - fexofenadine (LETICIA) 60 mg tablet Take 60 mg by mouth once daily as needed. - polyethylene glycol 3350 (MIRALAX) 17 gram/dose powder Take 17 g by mouth once daily. - aspirin, enteric coated (ASPIRIN, ENTERIC COATED) 81 mg EC tablet Take 81 mg by mouth once daily. - cholecalciferol(BATSHEVA MIN D 2,000 UNIT CAP) Take by mouth. - OMEGA 3 550 MG CAP Take one(1) tablet daily. - CALCIUM + D 600 MG-200 UNIT ORAL TAB Take by mouth. - TYLENOL EXTRA STRENGTH 500 MG ORAL TAB Take two(2) tablets every four(4) to six(6) hours as needed. Problem List As Of Date 06/10/2024 Noted Resolved Fibromyalgia [M79.7] 06/02/2005 PERSISTENT INSOMNIA [G47.00] 06/02/2005 Essential hypertension [I10] 06/02/2005 ESOPHAGEAL REFLUX [K21.9] 06/02/2005 Reactive depression [F32.9] Macular degeneration (senile) of retina [H35.30] CARPAL TUNNEL SYNDROME [G56.00] Obesity [E66.9] Anxiety state [F41.1] 05/11/2006 OSTEOARTHROS NOS-L/LEG [[id number]] 09/24/2008 Impaired Fasting Glucose [R73.01] 03/22/2010 Xerosis cutis [L85.3] 01/10/2013 Cracked skin [R23.4] 01/10/2013 Neurofibroma of back [D36.17] 01/10/2013 Intradermal nevus [D23.9] 01/10/2013 Acrochordon [L91.8] 01/10/2013 Pain in right hip [M25.551] 03/06/2019 Dizziness [R42] 10/23/2021 Status post right hip replacement [Z (more content not included)... Normal [facility] CNOVon 05-28-2024 CNOV Office Visit (INTMWS) DODIE LI ([id number]) 1945 F Date Time Provider Department 05/28/24 2:20 PM ADEEL HAYES INTMWS During your visit today, we recorded the following information about you: Temperature Pulse Respiration Blood pressure 97.7 degrees 68/minute 16/minute 128/82 Weight Height 79.5 kg 1.485 m Adeel Hayes MD 07/10/2024 11:58 PM Signed Dodie Li is a 78 year old female here for a Medicare wellness visit. Medicare Health Risk Assessment General Health Fair Exercise: Minutes/Day 0 min Exercise: Days/Week 0 days Alcohol: Daily Use Never Alcohol: Drinks/Day Patient does not drink Alcohol: 6 or more drinks Never Feel off balance Yes Concerns: Teeth/Dentures No Concerns: Sexual function No Troubled by feelings None of the above Frequency: Eating healthy diet Nearly every day ADLs requiring help None of the above Safety precautions in home/vehicle Yes Smoke, vape, chews tobacco No Difficulty hearing Yes Difficulty seeing Yes Current Providers Specialists: I have reviewed specialist-related care of the patient in the medical record. Outside specialists seen: Dr. Lal (Retinal specialist), Sapphire Olivares (did hip surgery), Dr. Debra Silva (ophthalmology), Dr. Denny Briseno (pulmonary physical therapist) Medical/Family history review Reviewed and updated problem list, medical/surgical/fam magnolia/social history, medications, and allergies. Opioid use review Opioid Medications (last 90 days) No data to display Anxiety/Depression screening PHQ-2 Score: 0 (Lower risk for depression) Recommendation: no further intervention at this time Cognitive screening Mini Cog Score: 5 Cognitive screening reviewed and No further action needed (score 3-5). Functional Observation Was the patient's Timed Up AND Go test unsteady or >= 12 seconds? Does stand up without cane but has to take small steps to maintain balance Advance Care Planning Surrogate decision maker and/or advance care plan documented Measurements BP 128/82 Pulse 68 Temp 36.5 ?C (97.7 ?F) Resp 16 Ht 148.5 cm (4' 10.47) Wt 79.5 kg (175 lb 4.3 oz) SpO2 98% BMI 36.05 kg/m? Vision Screening: Follows with optometry/ophthalmol ogy Assessment/Plan Medicare annual wellness visit, subsequent (Z00.00) - Counseled on healthy diet and regular exercise - Fall avoidance information provided - Personalized prevention plan provided Additional Concerns The following concerns were also discussed with the patient: Patient is a 78-year-old female presenting for a wellness visit. Patient has a history of right hip replacement and bilateral wrist surgeries, with the left wrist surgery performed in [place] and the right wrist surgery in [place]. She reports occasional pain in her wrists, particularly when lifting heavy objects, and notes a history of her wrist locking in the past. She also experiences balance issues, especially when carrying heavy items or opening heavy doors, and mentions a recent incident where lifting a six-pack of water irritated her wrist. Patient has been lax in performing her physical therapy exercises at home but plans to resume them to improve her balance and strength. Patient is currently taking doxepin 10 mg at bedtime for sleep, which she finds effective without causing grogginess. She was previously prescribed sertraline but discontinued it due to excessive drowsiness. She also takes gemfibrozil 600 mg twice daily, potassium chloride 10 mEq daily, and omeprazole 20 mg daily. She supplements with PreserVision, lutein, vitamin C, Caltrate, B-complex with vitamin C, calcium, zinc, fish oil, and vitamin E 400 IU daily. She uses a stool softener as needed. Patient follows up with Dr. Lal, a retinal specialist, for eye care and has seen Dr. Aletha Silva and Dr. Denny Briseno for routine eye exams. She does not have any siblings and relies on friends for transportation, as she does not drive much. She expresses feelings of loneliness and isolation, particularly due to a friend becoming less available and the absence of nearby family. She has considered using [employer] transportation services but is unsure of their availability. She also mentions difficulty navigating certain environments, such as gravel surfaces, which further limits her mobility. PHYSICAL EXAM BP 128/82 Pulse 68 Temp 36.5 ?C (97.7 ?F) Resp 16 Ht 148.5 cm (4' 10.47) Wt 79.5 kg (175 lb 4.3 oz) SpO2 98% BMI 36.05 kg/m? GENERAL: well appearing, alert, in no acute distress and ambulates with cane CARDIOVASCULAR: regular rate and rhythm. No murmur, rubs or gallops. PULMONARY: clear to auscultation, no wheezing, rhonchi, or crackles ABDOMEN: soft, non-tender, non-distended, no masses or organomegaly EXTREMITY: no lower extremity edema. No skin discoloration. Medicare annual wellness visit, subsequent (more content not included)... Normal [facility] [place] 04-22-2024 CNPN Telephone (FAMPWS) DODIE LI ([id number]) 1945 F Date Time Provider Department 04/22/24 ADEEL HAYES During your visit today, we recorded the following information about you: Winifred Calixto LPN 04/22/2024 9:32 AM Signed Pt calls to reports she does not eat enough fruits and vegetables and would like to take a supplement: Balance Nature. Pt reports there is one for fruits and one for vegetables. Pt is asking if it is ok to take this. MANJEET Lopes Laurie Lynn, LPN 04/22/2024 10:34 AM Signed Pt called back and had another question in addition to below. If it is okay to take the Nature's Balance does she need to stop some of the other OTC vitamins she is taking and if so please let pt know. MANJEET Tavares Liza D, MD 04/24/2024 11:22 AM Signed Noted that patient needs Medicare AWV--see if wants to come in for that (covered by insurance) and can discuss vitamins at that time. If she already bought the vitamins, an compare bottles of what she has and decide what to stay on and what to stop. Kendra Conner LPN 04/24/2024 12:53 PM Signed Patient notified of providers message and verbalized understanding. Medicare wellness scheduled. Allergies As of Date: 04/22/2024 Noted Allergy Reaction SIMVASTATIN 05/08/2019 14 - Other: See Comments Comments: Flu like sx, body aches AMOXICILLIN 06/02/2005 2 - Rash ASA (SALICYLATES) 06/02/2005 Comments: if not coated FLAGYL (METRONIDAZOLE HCL) 06/02/2005 LISINOPRIL 06/02/2005 PENICILLINS 06/02/2005 2 - Rash Date Reviewed: 04/08/2024 Reviewed by: Deidra Curry, RN - Fully Assessed Reason for Visit: Patient Question [9371] Prescriptions as of 04/24/2024 - doxepin capsule 10 mg Take 1 capsule by mouth daily at bedtime. - calcium carbonate (CALTRATE 600 ORAL) Take 1 tablet by mouth once daily. - docusate sodium (STOOL SOFTENER ORAL) Take 2 capsules by mouth daily at bedtime. - VITAMIN E ACETATE ORAL Take 1 capsule by mouth once daily. - Ascorbic Acid-Collagen (COLLAGEN PLUS VITAMIN C) 125-740 mg cap Take 1 capsule by mouth once daily. - sertraline (ZOLOFT) 25 mg tablet Take 1 tablet by mouth once daily. - cyanocobalamin (VITAMIN B-12) 1,000 mcg tab Take 1,000 mcg by mouth once daily. - WQZRSMR-WSXNBVZWE-FG NC ORAL Take 1 tablet by mouth once daily. - Atenolol-Chlorthalid one 100-25 mg per tablet TAKE 1/2 TABLET ONE TIME DAILY - potassium chloride ER (KLOR-CON M10) 10 mEq tablet Take 1 tablet by mouth two times a day. - gemfibrozil (LOPID) 600 mg tablet Take 1 tablet by mouth two times a day. - omeprazole (PRILOSEC) 20 mg capsule Take 1 capsule by mouth once daily. - omeprazole (PRILOSEC) 20 mg capsule Take 1 capsule by mouth once daily. - nystatin (MYCOSTATIN) powder Apply 1 application to affected area four times daily as needed (yeast infection). - guaifenesin/dextrome thorphan (MUCINEX DM ORAL) Take 1 tablet by mouth once daily as needed. - fexofenadine (LETICIA) 60 mg tablet Take 60 mg by mouth once daily as needed. - polyethylene glycol 3350 (MIRALAX) 17 gram/dose powder Take 17 g by mouth once daily. - aspirin, enteric coated (ASPIRIN, ENTERIC COATED) 81 mg EC tablet Take 81 mg by mouth once daily. - cholecalciferol(BATSHEVA MIN D 2,000 UNIT CAP) Take by mouth. - OMEGA 3 550 MG CAP Take one(1) tablet daily. - CALCIUM + D 600 MG-200 UNIT ORAL TAB Take by mouth. - TYLENOL EXTRA STRENGTH 500 MG ORAL TAB Take two(2) tablets every four(4) to six(6) hours as needed. Problem List As Of Date 04/22/2024 Noted Resolved Fibromyalgia [M79.7] 06/02/2005 PERSISTENT INSOMNIA [G47.00] 06/02/2005 Essential hypertension [I10] 06/02/2005 ESOPHAGEAL REFLUX [K21.9] 06/02/2005 Reactive depression [F32.9] Macular degeneration (senile) of retina [H35.30] CARPAL TUNNEL SYNDROME [G56.00] Obesity [E66.9] Anxiety state [F41.1] 05/11/2006 OSTEOARTHROS NOS-L/LEG [[id number]] 09/24/2008 Impaired Fasting Glucose [R73.01] 03/22/2010 Xerosis cutis [L85.3] 01/10/2013 Cracked skin [R23.4] 01/10/2013 Neurofibroma of back [D36.17] 01/10/2013 Intradermal nevus [D23.9] 01/10/2013 Acrochordon [L91.8] 01/10/2013 Pain in right hip [M25.551] 03/06/2019 Dizziness [R42] 10/23/2021 Status post right hip replacement [Z96.641] 10/23/2021 Hypertriglyceridemia [E78.1] 10/23/2021 Encounter Status:Closed by KENDRA CONNER on 04/24/24 [facility] ANTONIO[facility] 04-08-2024 CNOV Office Visit (PODIWS) DODIE LI ([id number]) 1945 F Date Time Provider Department 04/08/24 11:30 AM VICTORIA ASHLEY During your visit today, we recorded the following information about you: Deidra Curry, RN 04/08/2024 11:40 AM Signed Patient presents with: Left Foot - Established Patient, Follow Up, nail care Right Foot - Established Patient, Follow Up, nail care Patient presents for follow up nail care. ASHLEY 12/18/23 Victoria Ashley 04/08/2024 11:40 AM Signed Subjective: Patient presents to clinic c/o painful toenails. They state that the nails are especially painful with shoe gear and pressure. No other pedal complaints at this time. Patient states no change in medications or medical history since last visit. Objective: Patient presents to clinic ambulating in sneaker Vasc: DP and PT pulses are nonpalpable bilateral. CFT is less than 5 seconds bilateral. Skin temperature is warm to cool proximal to distal bilateral. There is mild edema or varicosities noted. Neuro: Protective sensation is intact to the foot and toes when tested with the 5.07 SWM bilateral. Vibratory sensation is decreased at the hallux IPJ bilateral. The hallux is downgoing bilateral. Derm: Nails 2-5 b/l are painful, discolored-yellow, thick, crumbly, dystrophic and with subungal debris. Skin is of normal turgor, texture and hair growth is absent bilateral. There are no hyperkeratosis, ulcerations, scars, verruca or other lesions noted. Ortho: Muscle strength is 5/5 for all pedal groups tested. Ankle joint DF is decreased with the knee extended with no pain or crepitus noted. 1st MPJ ROM is decreased bilateral. Assessment: (B35.1) Onychomycosis (primary encounter diagnosis) (M79.675) Pain in toe of left foot (M79.674) Pain in toe of right foot Plan: Patient was seen and evaluated. Nails 2-5 bilateral were debrided in length and thickness. B/l hallux reduced with dremmel at patient request not to debride nails. Patient is to RTC in 5 months. Victoria Ashley DPM Referring Provider: VICTORIA ASHLEY [[id number]] Allergies As of Date: 04/08/2024 Noted Allergy Reaction SIMVASTATIN 05/08/2019 14 - Other: See Comments Comments: Flu like sx, body aches AMOXICILLIN 06/02/2005 2 - Rash ASA (SALICYLATES) 06/02/2005 Comments: if not coated FLAGYL (METRONIDAZOLE HCL) 06/02/2005 LISINOPRIL 06/02/2005 PENICILLINS 06/02/2005 2 - Rash Date Reviewed: 04/08/2024 Reviewed by: Deidra Curry RN - Fully Assessed Reason for Visit: Established Patient [175] Follow Up [171] nail care [Other] Established Patient [175] Follow Up [171] nail care [Other] Primary Visit Diagnosis:Onychomyco sis [B35.1] Other Visit Diagnoses:Pain in toe of left foot [M79.675] Pain in toe of right foot [M79.674] Prescriptions as of 04/08/2024 - doxepin capsule 10 mg Take 1 capsule by mouth daily at bedtime. - calcium carbonate (CALTRATE 600 ORAL) Take 1 tablet by mouth once daily. - docusate sodium (STOOL SOFTENER ORAL) Take 2 capsules by mouth daily at bedtime. - VITAMIN E ACETATE ORAL Take 1 capsule by mouth once daily. - Ascorbic Acid-Collagen (COLLAGEN PLUS VITAMIN C) 125-740 mg cap Take 1 capsule by mouth once daily. - sertraline (ZOLOFT) 25 mg tablet Take 1 tablet by mouth once daily. - cyanocobalamin (VITAMIN B-12) 1,000 mcg tab Take 1,000 mcg by mouth once daily. - KJLRRNZ-MSMJIAUPM-OL NC ORAL Take 1 tablet by mouth once daily. - Atenolol-Chlorthalid one 100-25 mg per tablet TAKE 1/2 TABLET ONE TIME DAILY - potassium chloride ER (KLOR-CON M10) 10 mEq tablet Take 1 tablet by mouth two times a day. - gemfibrozil (LOPID) 600 mg tablet Take 1 tablet by mouth two times a day. - omeprazole (PRILOSEC) 20 mg capsule Take 1 capsule by mouth once daily. - omeprazole (PRILOSEC) 20 mg capsule Take 1 capsule by mouth once daily. - nystatin (MYCOSTATIN) powder Apply 1 application to affected area four times daily as needed (yeast infection). - guaifenesin/dextrome thorphan (MUCINEX DM ORAL) Take 1 tablet by mouth once daily as needed. - fexofenadine (LETICIA) 60 mg tablet Take 60 mg by mouth once daily as needed. - polyethylene glycol 3350 (MIRALAX) 17 gram/dose powder Take 17 g by mouth once daily. - aspirin, enteric coated (ASPIRIN, ENTERIC COATED) 81 mg EC tablet Take 81 mg by mouth once daily. - cholecalciferol(BATSHEVA MIN D 2,000 UNIT CAP) Take by mouth. - OMEGA 3 550 MG CAP Take one(1) tablet daily. - CALCIUM + D 600 MG-200 UNIT ORAL TAB Take by mouth. - TYLENOL EXTRA STRENGTH 500 MG ORAL TAB Take two(2) tablets every four(4) to six(6) hours as needed. Problem List As Of Date 04/08/2024 Noted Resolved Fibromyalgia [M79.7] 06/02/2005 PERSISTENT INSOMNIA [G47.00] 06/02/2005 Essential hypertension [I10] 06/02/2005 ESOPHAGEAL REFLUX [K21.9] 06/02/2005 Reactive depression [F32.9] (more content not included)... Normal [facility] No Panel Informationon 09-18 Radiology Study observation (narrative) [facility] XR Hand - right PA and Later al and Obliqueon 09-18-2022 IMPRESSION: Distal radial and ulnar fractures. Wood Carving Lathe Operator: KATE Transcribe Date/Time: Sep 18 2022 7:33P Dictated by : MONISHA CARVALHO MD This examination was interpreted and the report reviewed and electronically signed by: MONISHA CARVALHO MD on Sep 18 2022 7:35PM [facility] DIVISION OF RADIOLOGY * * *Final Report* * * DATE OF EXAM: Sep 18 2022 7:13PM WOX [id number] - XR HAND 3V PA/LAT/OBL RT / PROCEDURE REASON: Pain * * * * Physician Interpretation * * * * RIGHT HAND X-RAY SERIES HISTORY: Pain TECHNIQUE: PA, lateral and oblique views. COMPARISON: None available. RESULT: There is a transversely oriented fracture involving the distal radial metaphysis, which does not appear to extend to the radiocarpal joint. There is a fracture involving the base of the ulnar styloid which appears nondisplaced. No other fractures are identified. No evidence of dislocation. DIVISION OF RADIOLOGY Provider, [facility] [place] - 09/18/2022 * * *Final Report* * * DATE OF EXAM: Sep 18 2022 7:13PM WOX [id number] - XR HAND 3V PA/LAT/OBL RT / PROCEDURE REASON: Pain * * * * Physician Interpretation * * * * RIGHT HAND X-RAY SERIES HISTORY: Pain TECHNIQUE: PA, lateral and oblique views. COMPARISON: None available. RESULT: There is a transversely oriented fracture involving the distal radial metaphysis, which does not appear to extend to the radiocarpal joint. There is a fracture involving the base of the ulnar styloid which appears nondisplaced. No other fractures are identified. No evidence of dislocation. IMPRESSION IMPRESSION: Distal radial and ulnar fractures. Wood Carving Lathe Operator: KATE Transcribe Date/Time: Sep 18 2022 7:33P Dictated by : MONISHA CARVALHO MD This examination was interpreted and the report reviewed and electronically signed by: MONISHA CARVALHO MD on Sep 18 2022 7:35PM EST [facility] XR Pelvis and Hip - right AP and Lateral frogon 09-18-2022 IMPRESSION: No acute osseous abnormalities are identified. Wood Carving Lathe Operator: [facility] Transcribe Date/Time: Sep 18 2022 7:37P Dictated by : MONISHA CARVALHO MD This examination was interpreted and the report reviewed and electronically signed by: MONISHA CARVALHO MD on Sep 18 2022 7:39PM EST DIVISION OF RADIOLOGY * * *Final Report* * * DATE OF EXAM: Sep 18 2022 7:13PM WOX [id number] - XR HIP 3V PELV+ AP/LAT RT / PROCEDURE REASON: Pain * * * * Physician Interpretation * * * * HISTORY: Pain COMPARISON: None. AP single view pelvis and AP and lateral views of the right hip: There is no evidence of fracture or dislocation. No osseous destructive abnormalities are identified. Postsurgical changes are noted status post right total hip arthroplasty. Arterial calcifications are noted in the proximal thigh regions. Degenerative changes are noted in the thoracic spine. DIVISION OF RADIOLOGY Provider, [facility] [place] - 09/18/2022 * * *Final Report* * * DATE OF EXAM: Sep 18 2022 7:13PM WOX [id number] - XR HIP 3V PELV+ AP/LAT RT / PROCEDURE REASON: Pain * * * * Physician Interpretation * * * * HISTORY: Pain COMPARISON: None. AP single view pelvis and AP and lateral views of the right hip: There is no evidence of fracture or dislocation. No osseous destructive abnormalities are identified. Postsurgical changes are noted status post right total hip arthroplasty. Arterial calcifications are noted in the proximal thigh regions. Degenerative changes are noted in the thoracic spine. IMPRESSION IMPRESSION: No acute osseous abnormalities are identified. Wood Carving Lathe Operator: [facility] Transcribe Date/Time: Sep 18 2022 7:37P Dictated by : MONISHA CARVALHO MD This examination was interpreted and the report reviewed and electronically signed by: MONISHA CARVALHO MD on Sep 18 2022 7:39PM EST [facility] XR Radius and Ulna - right A P and Lateralon 09-18-2022 IMPRESSION: Distal radial and ulnar fractures. Wood Carving Lathe Operator: [facility] Transcribe Date/Time: Sep 18 2022 7:35P Dictated by : MONISHA CARVALHO MD This examination was interpreted and the report reviewed and electronically signed by: MONISHA CARVALHO MD on Sep 18 2022 7:37PM EST DIVISION OF RADIOLOGY * * *Final Report* * * DATE OF EXAM: Sep 18 2022 7:13PM WOX [id number] - XR FOREARM 2V AP/LAT RT / PROCEDURE REASON: Pain * * * * Physician Interpretation * * * * RIGHT FOREARM X-RAY SERIES HISTORY: Pain TECHNIQUE: AP and lateral views. COMPARISON: None available. RESULT: There is a distal radial metaphyseal fracture and fracture of the base of the ulnar styloid which appears nondisplaced. No other fractures are identified. No evidence of dislocation. Joint spaces appear unremarkable. DIVISION OF RADIOLOGY Provider, [facility] - 09/18/2022 * * *Final Report* * * DATE OF EXAM: Sep 18 2022 7:13PM WOX [id number] - XR FOREARM 2V AP/LAT RT / PROCEDURE REASON: Pain * * * * Physician Interpretation * * * * RIGHT FOREARM X-RAY SERIES HISTORY: Pain TECHNIQUE: AP and lateral views. COMPARISON: None available. RESULT: There is a distal radial metaphyseal fracture and fracture of the base of the ulnar styloid which appears nondisplaced. No other fractures are identified. No evidence of dislocation. Joint spaces appear unremarkable. IMPRESSION IMPRESSION: Distal radial and ulnar fractures. Wood Carving Lathe Operator: [facility] Transcribe Date/Time: Sep 18 2022 7:35P Dictated by : MONISHA CARVALHO MD This examination was interpreted and the report reviewed and electronically signed by: MONISHA CARVALHO MD on Sep 18 2022 7:37PM EST [facility] XR Sacrum and Coccyx 3 Views on 09-18-2022 IMPRESSION: No acute osseous abnormalities are identified. Wood Carving Lathe Operator: [facility] Transcribe Date/Time: Sep 18 2022 7:40P Dictated by : MONISHA CARVALHO MD This examination was interpreted and the report reviewed and electronically signed by: MONISHA CARVALHO MD on Sep 18 2022 7:42PM [facility] DIVISION OF RADIOLOGY * * *Final Report* * * DATE OF EXAM: Sep 18 2022 7:13PM WOX [id number] - XR SACRUM/COCCYX 3V AP/LAT / PROCEDURE REASON: Pain * * * * Physician Interpretation * * * * EXAMINATION: XR SACRUM/COCCYX 3V AP/LAT CLINICAL HISTORY: fell today, concerned about hip replacement and has pain in posterior right hip area Pain Technique: XR SACRUM/COCCYX 3V AP/LAT -- NOT APPLICABLE with 3 views on 3 images Comparison: RESULT: No evidence of fracture. No osseous destructive abnormalities are identified. If there is continued suspicion for an occult fracture, recommend CT of the pelvis. Degenerative changes are noted in the lumbar spine. Vascular calcifications involve the aorta. DIVISION OF RADIOLOGY Provider, [facility] [place] - 09/18/2022 * * *Final Report* * * DATE OF EXAM: Sep 18 2022 7:13PM WOX [id number] - XR SACRUM/COCCYX 3V AP/LAT / PROCEDURE REASON: Pain * * * * Physician Interpretation * * * * EXAMINATION: XR SACRUM/COCCYX 3V AP/LAT CLINICAL HISTORY: fell today, concerned about hip replacement and has pain in posterior right hip area Pain Technique: XR SACRUM/COCCYX 3V AP/LAT -- NOT APPLICABLE with 3 views on 3 images Comparison: RESULT: No evidence of fracture. No osseous destructive abnormalities are identified. If there is continued suspicion for an occult fracture, recommend CT of the pelvis. Degenerative changes are noted in the lumbar spine. Vascular calcifications involve the aorta. IMPRESSION IMPRESSION: No acute osseous abnormalities are identified. Wood Carving Lathe Operator: [facility] Transcribe Date/Time: Sep 18 2022 7:40P Dictated by : MONISHA CARVALHO MD This examination was interpreted and the report reviewed and electronically signed by: MONISHA CARVALHO MD on Dec 12 2022 7:42PM EST [facility] XR Shoulder - right 2 Viewso n 09-18-2022 IMPRESSION: No acute osseous abnormalities are identified. [facility] Transcribe Date/Time: Sep 18 2022 7:31P Dictated by : MONISHA CARVALHO MD This examination was interpreted and the report reviewed and electronically signed by: MONISHA CARVALHO MD on Sep 18 2022 7:32PM EST DIVISION OF RADIOLOGY * * *Final Report* * * DATE OF EXAM: Sep 18 2022 7:13PM WOX [id number] - XR SHOULDER 2V AP/TRUE AP RT / PROCEDURE REASON: Pain * * * * Physician Interpretation * * * * RIGHT SHOULDER X-RAY SERIES HISTORY: Pain TECHNIQUE: AP, Grashey, lateral scapular Y-view COMPARISON: None available. RESULT: No fracture, dislocation or destructive changes. AC joint degenerative changes are noted. DIVISION OF RADIOLOGY Provider, [facility] [place] - 09/18/2022 * * *Final Report* * * DATE OF EXAM: Sep 18 2022 7:13PM WOX [id number] - XR SHOULDER 2V AP/TRUE AP RT / PROCEDURE REASON: Pain * * * * Physician Interpretation * * * * RIGHT SHOULDER X-RAY SERIES HISTORY: Pain TECHNIQUE: AP, Grashey, lateral scapular Y-view COMPARISON: None available. RESULT: No fracture, dislocation or destructive changes. AC joint degenerative changes are noted. IMPRESSION IMPRESSION: No acute osseous abnormalities are identified. Wood Carving Lathe Operator: [facility] Transcribe Date/Time: Sep 18 2022 7:31P Dictated by : MONISHA CARVALHO MD This examination was interpreted and the report reviewed and electronically signed by: MONISHA CARVALHO MD on Sep 18 2022 7:32PM EST [facility] XR Shoulder - right 2 ViewsO rdered By: [facility] Provider on 09-18-2022 [facility] Basic metabolic 2000 panelon 03-25-2022 Anion gap [Moles/Vol] 13 mmol/L 9 - 18 mmol/L [facility] Calcium [Mass/Vol] 10.1 mg/dL 8.5 - 10. 2 mg/dL [facility] Chloride [Moles/Vol] 101 mmol/L 97 - 105 mmol/L [facility] CO2 [Moles/Vol] 26 mmol/L 22 - 30 mmol/L [facility] Creatinine [Mass/Vol] 0.66 mg/dL 0.58 - 0.96 mg/dL [facility] Estimated Glomerular Filtration Rate 92 mL/min/1.73m >=60 mL/min/1.73m [facility] Glucose [Mass/Vol] 95 mg/dL 74 - 99 mg/dL [facility] Potassium [Moles/Vol] 3.5 mmol/L Low 3.7 - 5.1 mmol/L [facility] Sodium [Moles/Vol] 140 mmol/L 136 - 144 mmol/L [facility] Urea nitrogen [Mass/Vol] 17 mg/dL 7 - 21 mg/dL [facility] Vital Signs Date Time Vital Sign Value Performing Clinician Luci [email or web address] 07-09-2024 14:39-0400 Body mass index (BMI) [Ratio] 36.19 kg/m2 Adeel Hayes MD Work Phone: [facility] 07-09-2024 14:39-0400 Body temperature 98.49 [degF] Adeel Hayes MD Work Phone: [facility] 07-09-2024 14:39-0400 Body weight 79.8 kg Adeel Hayes MD Work Phone: [facility] 07-09-2024 14:39-0400 Diastolic blood pressure 68 mm[Hg] Adeel Hayes MD Work Phone: [facility] 07-09-2024 14:39-0400 Heart rate 67 /min Adeel Hayes MD Work Phone: [facility] 07-09-2024 14:39-0400 Respiratory rate 16 /min Adeel Hayes MD Work Phone: [facility] 07-09-2024 14:39-0400 SaO2% (BldA) [Mass fraction] 99 % Adeel Hayes MD Work Phone: [facility] 07-09-2024 14:39-0400 Systolic blood pressure 118 mm[Hg] Adeel Hayes MD Work Phone: [facility] 06-23-2024 12:59-0400 Body mass index (BMI) [Ratio] 36.14 kg/m2 Destini Jesus RETURNER.DONOR RELATIONS OFFICER Work Phone: [facility] 06-23-2024 12:59-0400 Body weight 79.7 kg Destini Jesus RETURNER.DONOR RELATIONS OFFICER Work Phone: [facility] 06-23-2024 12:59-0400 Diastolic blood pressure 64 mm[Hg] Destini Jesus RETURNER.DONOR RELATIONS OFFICER Work Phone: [facility] 06-23-2024 12:59-0400 Heart rate 72 /min Destini Jesus RETURNER.DONOR RELATIONS OFFICER Work Phone: [facility] 06-23-2024 12:59-0400 SaO2% (BldA) [Mass fraction] 96 % Destini Jesus RETURNER.DONOR RELATIONS OFFICER Work Phone: [facility] 06-23-2024 12:59-0400 Systolic blood pressure 118 mm[Hg] Destini Jesus RETURNER.DONOR RELATIONS OFFICER Work Phone: [facility] 05-28-2024 15:12-0400 Body height 148.5 cm Adeel Hayes MD Work Phone: [facility] 05-28-2024 15:12-0400 Body mass index (BMI) [Ratio] 36.05 kg/m2 Adeel Hayes MD Work Phone: [facility] 05-28-2024 15:12-0400 Body temperature 97.7 [degF] Adeel Hayes MD Work Phone: [facility] 05-28-2024 15:12-0400 Body weight 79.5 kg Adeel Hayes MD Work Phone: [facility] 05-28-2024 15:12-0400 Diastolic blood pressure 82 mm[Hg] Adeel Hayes MD Work Phone: [facility] 05-28-2024 15:12-0400 Heart rate 68 /min Adeel Hayes MD Work Phone: [facility] 05-28-2024 15:12-0400 Respiratory rate 16 /min Adeel Hayes MD Work Phone: [facility] 05-28-2024 15:12-0400 SaO2% (BldA) [Mass fraction] 98 % Adeel Hayes MD Work Phone: [facility] 05-28-2024 15:12-0400 Systolic blood pressure 128 mm[Hg] Adeel Hayes MD Work Phone: [facility] 03-12-2024 09:44-0400 Body mass index (BMI) [Ratio] 33.44 kg/m2 Adeel Hayes MD Work Phone: [facility] 03-12-2024 09:44-0400 Body temperature 98.01 [degF] Adeel Hayes MD Work Phone: [facility] 03-12-2024 09:44-0400 Body weight 80.29 kg Adeel Hayes MD Work Phone: [facility] 03-12-2024 09:44-0400 Diastolic blood pressure 62 mm[Hg] Adeel Hayes MD Work Phone: [facility] 03-12-2024 09:44-0400 Heart rate 61 /min Adeel Hayes MD Work Phone: [facility] 03-12-2024 09:44-0400 Respiratory rate 18 /min Adeel Hayes MD Work Phone: [facility] 03-12-2024 09:44-0400 SaO2% (BldA) [Mass fraction] 98 % Adeel Hayes MD Work Phone: [facility] 03-12-2024 09:44-0400 Systolic blood pressure 112 mm[Hg] Adeel Hayes MD Work Phone: [facility] 02-12-2024 11:14-0400 Body mass index (BMI) [Ratio] 33.25 kg/m2 Destini Bernalr RETURNER.DONOR RELATIONS OFFICER Work Phone: [facility] 02-12-2024 11:14-0400 Body weight 79.83 kg Destini Jesus RETURNER.DONOR RELATIONS OFFICER Work Phone: [facility] 02-12-2024 11:14-0400 Diastolic blood pressure 64 mm[Hg] Destini Jesus RETURNER.DONOR RELATIONS OFFICER Work Phone: [facility] 02-12-2024 11:14-0400 Heart rate 71 /min Destini Jesus RETURNER.DONOR RELATIONS OFFICER Work Phone: [facility] 02-12-2024 11:14-0400 SaO2% (BldA) [Mass fraction] 97 % Destini Jesus RETURNER.DONOR RELATIONS OFFICER Work Phone: [facility] 02-12-2024 11:14-0400 Systolic blood pressure 110 mm[Hg] Destini Jesus RETURNER.DONOR RELATIONS OFFICER Work Phone: [facility] 11-30-2023 09:53-0500 Body weight 82.83 kg Adeel Hayes MD Work Phone: [facility] 11-30-2023 09:53-0500 Diastolic blood pressure 68 mm[Hg] Adeel Hayes MD Work Phone: [facility] 11-30-2023 09:53-0500 Heart rate 64 /min Adeel Hayes MD Work Phone: [facility] 11-30-2023 09:53-0500 Respiratory rate 16 /min Adeel Hayes MD Work Phone: [facility] 11-30-2023 09:53-0500 SaO2% (BldA) [Mass fraction] 97 % Adeel Hayes MD Work Phone: [facility] 11-30-2023 09:53-0500 Systolic blood pressure 108 mm[Hg] Adeel Hayes MD Work Phone: [facility] 09-18-2023 10:38-0500 Body temperature 98.01 [degF] Adeel Hayes MD Work Phone: [facility] 09-18-2023 10:38-0500 Body weight 83.92 kg Adeel Hayes MD Work Phone: [facility] 09-18-2023 10:38-0500 Heart rate 61 /min Adeel Hayes MD Work Phone: [facility] 09-18-2023 10:38-0500 Respiratory rate 18 /min Adeel Hayes MD Work Phone: [facility] 09-18-2023 10:38-0500 SaO2% (BldA) [Mass fraction] 97 % Adeel Hayes MD Work Phone: [facility] 03-10-2023 09:43-0400 Body weight 82.46 kg Adeel Hayes MD Work Phone: [facility] 03-10-2023 09:43-0400 Diastolic blood pressure 76 mm[Hg] Adeel Hayes MD Work Phone: [facility] 03-10-2023 09:43-0400 Heart rate 60 /min Adeel Hayes MD Work Phone: [facility] 03-10-2023 09:43-0400 Respiratory rate 16 /min Adeel Hayes MD Work Phone: [facility] 03-10-2023 09:43-0400 Systolic blood pressure 130 mm[Hg] Adeel Hayes MD Work Phone: [facility] 11-17-2022 13:34-0500 Body temperature 97.81 [degF] Griselda Baljit RETURNER.DONOR RELATIONS OFFICER Work Phone: [facility] 11-17-2022 13:34-0500 Diastolic blood pressure 74 mm[Hg] Griselda Baljit RETURNER.DONOR RELATIONS OFFICER Work Phone: [facility] 11-17-2022 13:34-0500 Heart rate 68 /min Griselda Baljit RETURNER.DONOR RELATIONS OFFICER Work Phone: [facility] 11-17-2022 13:34-0500 Respiratory rate 18 /min Griselda Baljit RETURNER.DONOR RELATIONS OFFICER Work Phone: [facility] 11-17-2022 13:34-0500 SaO2% (BldA) [Mass fraction] 96 % Griselda Baljit RETURNER.DONOR RELATIONS OFFICER Work Phone: [facility] 11-17-2022 13:34-0500 Systolic blood pressure 136 mm[Hg] Griselda Smiley APRN.DONOR RELATIONS OFFICER Work Phone: [facility] 10-04-2022 13:36-0500 Body temperature 98.8 [degF] Adeel Hayes MD Work Phone: [facility] 10-04-2022 13:36-0500 Diastolic blood pressure 78 mm[Hg] Adeel Hayes MD Work Phone: [facility] 10-04-2022 13:36-0500 Heart rate 69 /min Adeel Hayes MD Work Phone: [facility] 10-04-2022 13:36-0500 Respiratory rate 18 /min Adeel Hayes MD Work Phone: [facility] 10-04-2022 13:36-0500 SaO2% (BldA) [Mass fraction] 96 % Adeel Hayes MD Work Phone: [facility] 10-04-2022 13:36-0500 Systolic blood pressure 126 mm[Hg] Adeel Hayes MD Work Phone: [facility] 09-28-2022 10:35-0500 Body temperature 98.4 [degF] Melina Doan APRN.DONOR RELATIONS OFFICER Work Phone: [facility] 09-28-2022 10:35-0500 Diastolic blood pressure 82 mm[Hg] Melina Doan APRN.DONOR RELATIONS OFFICER Work Phone: [facility] 09-28-2022 10:35-0500 Heart rate 70 /min Melina Doan APRN.DONOR RELATIONS OFFICER Work Phone: [facility] 09-28-2022 10:35-0500 Respiratory rate 18 /min Melina Doan APRN.DONOR RELATIONS OFFICER Work Phone: [facility] 09-28-2022 10:35-0500 SaO2% (BldA) [Mass fraction] 97 % Melina Doan APRN.DONOR RELATIONS OFFICER Work Phone: [facility] 09-28-2022 10:35-0500 Systolic blood pressure 138 mm[Hg] Melina Doan APRN.DONOR RELATIONS OFFICER Work Phone: [facility] 09-18-2022 17:42-0500 Body temperature 98.29 [degF] Melina Doan APRN.DONOR RELATIONS OFFICER Work Phone: [facility] 09-18-2022 17:42-0500 Body weight 83.19 kg Melina Doan APRN.DONOR RELATIONS OFFICER Work Phone: [facility] 09-18-2022 17:42-0500 Diastolic blood pressure 72 mm[Hg] Melina Doan APRN.DONOR RELATIONS OFFICER Work Phone: [facility] 09-18-2022 17:42-0500 Heart rate 70 /min Melina Doan APRN.DONOR RELATIONS OFFICER Work Phone: [facility] 09-18-2022 17:42-0500 Respiratory rate 21 /min Melina Doan APRN.DONOR RELATIONS OFFICER Work Phone: [facility] 09-18-2022 17:42-0500 SaO2% (BldA) [Mass fraction] 94 % Melina Doan APRN.DONOR RELATIONS OFFICER Work Phone: [facility] 09-18-2022 17:42-0500 Systolic blood pressure 124 mm[Hg] Melina Doan APRN.DONOR RELATIONS OFFICER Work Phone: [facility] 08-14-2022 11:05-0500 Body weight 83.46 kg Adeel Hayes MD Work Phone: [facility] 08-14-2022 11:05-0500 Diastolic blood pressure 82 mm[Hg] Adeel Hayes MD Work Phone: [facility] 08-14-2022 11:05-0500 Heart rate 66 /min Adeel Hayes MD Work Phone: [facility] 08-14-2022 11:05-0500 SaO2% (BldA) [Mass fraction] 99 % Adeel Hayes MD Work Phone: [facility] 08-14-2022 11:05-0500 Systolic blood pressure 126 mm[Hg] Adeel Hayes MD Work Phone: [facility] 03-24-2022 15:01-0400 Body weight 83.46 kg Adeel Hayes MD Work Phone: [facility] 03-24-2022 15:01-0400 Diastolic blood pressure 64 mm[Hg] Adeel Hayes MD Work Phone: [facility] 03-24-2022 15:01-0400 Heart rate 65 /min Adeel Hayes MD Work Phone: [facility] 03-24-2022 15:01-0400 SaO2% (BldA) [Mass fraction] 95 % Adeel Hayes MD Work Phone: [facility] 03-24-2022 15:01-0400 Systolic blood pressure 108 mm[Hg] Adeel Hayes MD Work Phone: [facility] Encounters Encounter Date Encounter Type Care Provider Facility Start: 04-07-2025 End: 04-08-2025 Telephone encounter Adeel Hayes MD Work Phone: [facility] [place] Comment on above: Patient Question Start: 03-30-2025 End: 04-02-2025 Telephone encounter Adeel Hayes MD Work Phone: [facility] [place] Comment on above: Orders Start: 02-10-2025 End: 02-10-2025 Patient encounter procedure Victoria Ashley Work Phone: Podiatry Comment on above: Onychomycosis (Prima ry Dx); Pain in toe of left foot; Pain in toe of right foot; Callus of foot; Hammer toe of right foot Start: 02-10-2025 End: 02-10-2025 ambulatory VICTORIA GABI Facility:[facility] Start: 01-26-2025 End: 01-27-2025 Telephone encounter Adeel Hayes MD Work Phone: [facility] [place] Comment on above: Electronic Communica tion ([facility]) Start: 01-06-2025 ambulatory Adeel Hayes Facilit y:[facility] Start: 12-23-2024 End: 12-24-2024 Telephone encounter Adeel Hayes MD Work Phone: [facility] [place] Comment on above: report a fall on 12/06 Start: 12-16-2024 End: 12-16-2024 Home visit Adeel Hayes MD Work Phone: [facility] [place] Comment on above: Anxiety disorder, un specified type (Primary Dx) Start: 11-25-2024 End: 11-26-2024 Telephone encounter Adeel Hayes MD Work Phone: [facility] [place] Comment on above: verbal orders Start: 11-18-2024 End: 11-18-2024 Telephone encounter Adeel Hayes MD Work Phone: [facility] [place] Comment on above: Forms Start: 11-13-2024 End: 11-14-2024 Telephone encounter Adeel Hayes MD Work Phone: [facility] [place] Comment on above: [facility]- verbal orders needed Start: 11-03-2024 End: 11-03-2024 Refill Adeel Hayes MD Work Phone: [facility] [place] Comment on above: Refill Request Start: 10-29-2024 End: 11-04-2024 Telephone encounter Adeel Hayes MD Work Phone: [facility] [place] Comment on above: Patient Request Start: 09-25-2024 End: 10-06-2024 Telephone encounter Adeel Hayes MD Work Phone: [facility] [place] Comment on above: Patient Question Start: 09-16-2024 End: 09-22-2024 Telephone encounter Adeel Hayes MD Work Phone: [facility] [place] Comment on above: Provider takes insur ance Orders Start: 09-09-2024 End: 09-09-2024 ambulatory ADEEL HAYES Facility:[facility] Start: 09-09-2024 End: 09-09-2024 Patient encounter procedure Victoria Ashley Work Phone: Podiatry Comment on above: Onychomycosis (Prima ry Dx); Pain in toe of left foot; Pain in toe of right foot Start: 08-11-2024 End: 08-15-2024 Telephone encounter Adeel Hayes MD Work Phone: [facility] [place] Comment on above: Patient Question; Or ders Start: 07-30-2024 End: 08-08-2024 Telephone encounter Adeel Hayes MD Work Phone: [facility] [place] Comment on above: Orders for admission Start: 07-23-2024 End: 07-31-2024 Telephone encounter Adeel Hayes MD Work Phone: [facility] [place] Comment on above: Patient Update Start: 07-18-2024 End: 08-04-2024 Telephone encounter Adeel Hayes MD Work Phone: [facility] [place] Comment on above: Patient Update; Jesica ent Question Start: 07-16-2024 End: 07-16-2024 Telephone encounter Adeel Hayes MD Work Phone: [facility] [place] Comment on above: Patient Update Start: 07-14-2024 End: 07-14-2024 Telephone encounter Adeel Hayes MD Work Phone: [facility] [place] Comment on above: Patient Question Start: 07-12-2024 End: 07-12-2024 ambulatory Marjorie Aviles RN NURSE CARE PROFESSIONAL Comment on above: Medication Question Start: 07-10-2024 End: 07-21-2024 Telephone encounter Adeel Hayes MD Work Phone: [facility] [place] Comment on above: Medication Problem Insurance Authorizat ion Start: 07-09-2024 End: 07-09-2024 Office outpatient visit 25 minutes Adeel Hayes MD Work Phone: [facility] [place] Comment on above: Balance problem (Helen kai Dx); Frequent falls; Essential hypertension; Benign paroxysmal positional vertigo, unspecified laterality; Nocturia more than twice per night; Vision impairment; Encounter for immunization Start: 07-09-2024 End: 07-09-2024 ambulatory ADEEL HAYES Facility:[facility] Start: 07-04-2024 End: 07-04-2024 Telephone encounter Adeel Hayes MD Work Phone: [facility] [place] Comment on above: Opened In Error Patient Question Start: 06-23-2024 End: 06-23-2024 Telephone encounter Adeel Hayes MD Work Phone: [facility] [place] Comment on above: Patient Question referral to [facility] Start: 06-23-2024 End: 06-23-2024 ambulatory DESTINI LEE Facility:[facility] Start: 06-23-2024 End: 06-23-2024 Patient encounter procedure Destini Lee RETURNER.DONOR RELATIONS OFFICER Work Phone: [facility] [place] Comment on above: Sleep disturbance (P rimary Dx); Repeated falls; Situational mixed anxiety and depressive disorder; Diarrhea, unspecified type Start: 06-10-2024 End: 06-13-2024 Telephone encounter Adeel Hayes MD Work Phone: [facility] [place] Comment on above: Patient Question Start: 05-28-2024 End: 05-28-2024 ambulatory ADEEL HAYES Facility:[facility] Start: 05-28-2024 End: 05-28-2024 Patient encounter procedure Adeel Hayes MD Work Phone: [facility] [place] Comment on above: Medicare annual well ness visit, subsequent (Primary Dx); Gait instability; Essential hypertension; Hypokalemia; Hypertriglyceridemia Start: 05-06-2024 Refill Adeel purvis MD Work Phone: [facility] [place] Comment on above: Refill Request Start: 04-22-2024 Telephone encounter Adeel alcantara MD Work Phone: [facility] [place] Comment on above: Patient Question Start: 04-08-2024 End: 04-08-2024 ambulatory VICTORIA ASHLEY Facility:[facility] Start: 04-08-2024 End: 04-08-2024 Patient encounter procedure Victoria Dumontsimeon Work Phone: Podiatry Comment on above: Onychomycosis (Prima ry Dx); Pain in toe of left foot; Pain in toe of right foot Start: 03-24-2024 Telephone encounter Adeel alcantara MD Work Phone: [facility] [place] Comment on above: Results Start: 03-21-2024 Home visit Adeel purvis MD Work Phone: [facility] [place] Comment on above: Aftercare following joint replacement surgery, unspecified joint (Primary Dx) Start: 03-13-2024 Refill Adeel purvis MD Work Phone: [facility] [place] Comment on above: Refill Request Start: 03-12-2024 End: 03-12-2024 Office outpatient visit 25 minutes Adeel Hayes MD Work Phone: [facility] [place] Comment on above: 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); Situational mixed anxiety and depressive disorder; Gait instability; Essential hypertension; Hypokalemia; Screening for colon cancer; Encounter for immunization Start: 02-15-2024 Telephone encounter Maryjo Finn Start: 02-12-2024 End: 02-12-2024 Patient encounter procedure Destini Lee APRN.CNP Work Phone: [facility] [place] Comment on above: Situational mixed an xiety and depressive disorder (Primary Dx); Macular degeneration of both eyes, unspecified type Start: 01-17-2024 Telephone encounter Adeel alcantara MD Work Phone: [facility] [place] Comment on above: Patient Question Start: 12-21-2023 [facility]ulatory [facility] [place] Comment on above: Population Health Na vigation Outreach ([employer] care gaps) Start: 12-18-2023 End: 12-18-2023 Patient encounter procedure Victoria Gabi Work Phone: Podiatry Comment on above: Onychomycosis (Prima ry Dx); Pain in toe of left foot; Pain in toe of right foot Start: 12-06-2023 Telephone encounter Adeel alcantara MD Work Phone: [facility] [place] Comment on above: Patient Update Start: 11-30-2023 End: 11-30-2023 Office outpatient visit 25 minutes Adeel Hayes MD Work Phone: [facility] [place] Comment on above: Gait instability (Pr imary Dx); Status post right hip replacement; Asymptomatic postmenopausal status Start: 10-29-2023 Telephone encounter Adeel alcantara MD Work Phone: [facility] [place] Comment on above: Letter Start: 09-18-2023 End: 09-18-2023 Office outpatient visit 25 minutes Adeel Hayes MD Work Phone: [facility] [place] Comment on above: 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); Essential hypertension; Vitamin D deficiency; Hypokalemia; Hypertriglyceridemia; Encounter for long-term current use of medication; Need for shingles vaccine; Asymptomatic postmenopausal status; Encounter for immunization; Bilateral hearing loss, unspecified hearing loss type Start: 09-03-2023 End: 09-03-2023 Patient encounter procedure Victoria Ashley Work Phone: Podiatry Comment on above: Onychomycosis (Prima ry Dx); Pain in toe of left foot; Pain in toe of right foot Start: 08-31-2023 Refill Destini Lee APRN.CNP Work Phone: [facility] [place] Comment on above: Refill Request Start: 08-14-2023 Telephone encounter Adeel alcantara MD Work Phone: [facility] [place] Comment on above: patient questions Start: 08-07-2023 Refill Adeel purvis MD Work Phone: [facility] [place] Comment on above: Refill Request Start: 06-08-2023 Refill Adeel purvis MD Work Phone: [facility] [place] Comment on above: Refill Request; Refi ll Request Start: 05-21-2023 End: 05-21-2023 Patient encounter procedure Victoria Ashley Work Phone: Podiatry Comment on above: Onychomycosis (Prima ry Dx); Toenail deformity; Pain in toe of left foot; Pain in toe of right foot Start: 03-26-2023 Telephone encounter Adeel alcantara MD Work Phone: [facility] [place] Comment on above: Referral Request Start: 03-10-2023 End: 03-10-2023 Office outpatient visit 25 minutes Adeel Hayes MD Work Phone: [facility] [place] Comment on above: 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); Candidal intertrigo; Essential hypertension; Class 1 obesity due to excess calories without serious comorbidity with body mass index (BMI) of 34.0 to 34.9 in adult; Screening for colon cancer Start: 02-20-2023 Telephone encounter Adeel alcantara MD Work Phone: [facility] [place] Comment on above: Medication Question Start: 02-12-2023 Telephone encounter Adeel alcantara MD Work Phone: [facility] [place] Comment on above: Medication Question; Constipation Start: 02-01-2023 ambulatory Adeel uprvis MD Work Phone: [facility] [place] Comment on above: Insect Bite Start: 01-08-2023 Non-patient / Non-visit Dr. Samantha Hayes Work Phone: [facility] Start: 01-08-2023 End: 01-08-[address] Adeel Hayes Work Phone: [facility] Work Phone: Start: 01-08-2023 End: 01-08-[address] Adeel Hayes Work Phone: [facility]/Neurology Start: 12-20-2022 Refill Adeel purvis MD Work Phone: [facility] [place] Comment on above: Refill Request Start: 12-12-2022 Refill Adeel purvis MD Work Phone: [facility] [place] Comment on above: Refill Request Start: 11-22-2022 Telephone encounter Adeel alcantara MD Work Phone: [facility] [place] Comment on above: Medication Question Start: 11-17-2022 End: 11-17-2022 Patient encounter procedure Griselda Smiley APRN.DONOR RELATIONS OFFICER Work Phone: [facility] Comment on above: Itching (Primary Dx) Start: 11-14-2022 Telephone encounter Adeel alcantara MD Work Phone: [facility] [place] Comment on above: Pain Start: 10-26-2022 Telephone encounter Adeel alcantara MD Work Phone: [facility] [place] Comment on above: requesting medicatio n (yeast infection) Start: 10-05-2022 Telephone encounter Maryjo Le [facility] [place] Comment on above: Patient Question Start: 10-04-2022 End: 10-04-2022 Office outpatient visit 25 minutes Adeel Hayes MD Work Phone: [facility] [place] Comment on above: Candidal intertrigo (Primary Dx); Alsen eye disease of both eyes; Closed fracture of right upper extremity, sequela Start: 09-29-2022 Telephone encounter Adeel alcantara MD Work Phone: [facility] [place] Comment on above: Patient Question Orders Start: 09-28-2022 Telephone encounter Adeel alcantara MD Work Phone: [facility] [place] Comment on above: Patient Question Start: 09-28-2022 End: 09-28-2022 Patient encounter procedure Melina Franki GOLD.DONOR RELATIONS OFFICER Work Phone: [facility] Comment on above: Skin rash (Primary D x) Start: 09-22-2022 Telephone encounter Adeel alcantara MD Work Phone: [facility] [place] Comment on above: Patient Question; Pa tient Update Start: 09-19-2022 Telephone encounter Jean Wagner DO Work Phone: Radiology Comment on above: Patient Question Start: 09-18-2022 End: 09-18-2022 Subsequent hospital visit by physician [facility] [place] Work Phone: Radiology Comment on above: Pain [R52] Start: 09-18-2022 End: 09-18-2022 Patient encounter procedure Melina Doan ALLA.DONOR RELATIONS OFFICER Work Phone: [facility] Comment on above: Pain (Primary Dx) Start: 08-18-2022 Refill Adeel purvis MD Work Phone: [facility] [place] Comment on above: Refill Request Start: 08-16-2022 ambulatory Adeel purvis MD Work Phone: [facility] [place] Comment on above: Flu Shot reaction Start: 08-14-2022 End: 08-14-2022 Office outpatient visit 40 minutes Adeel Hayes MD Work Phone: [facility] [place] Comment on above: Essential hypertensi on (Primary Dx); Persistent disorder of initiating or maintaining sleep; Hypokalemia; Vitamin D deficiency; Hypertriglyceridemia; Asymptomatic postmenopausal status; Balance problems; Encounter for long-term current use of medication; Encounter for immunization; Colon cancer screening Start: 06-21-2022 Refill Adeel purvis MD Work Phone: [facility] [place] Comment on above: Refill Request Start: 04-07-2022 Refill Adeel purvis MD Work Phone: [facility] [place] Comment on above: Refill Request Start: 04-06-2022 Refill Adeel purvis MD Work Phone: [facility] [place] Comment on above: Refill Request Start: 03-28-2022 Refill Adeel purvis MD Work Phone: [facility] [place] Comment on above: Refill Request Results, Lab Start: 03-24-2022 End: 03-24-2022 Office outpatient visit 25 minutes Adeel Hayes MD Work Phone: [facility] [place] Comment on above: Essential hypertensi on (Primary Dx); Persistent disorder of initiating or maintaining sleep; Vitamin D deficiency; Hypokalemia; Varicose veins of both lower extremities, unspecified whether complicated; Hearing difficulty of both ears Start: 01-31-2022 Telephone encounter Adeel alcantara MD Work Phone: [facility] [place] Comment on above: Patient Question Start: 01-09-2022 Telephone encounter Adeel alcantara MD Work Phone: [facility] [place] Comment on above: Medication Question Start: 12-30-2021 Refill Adeel purvis MD Work Phone: [facility] [place] Comment on above: Refill Request Patient Question Procedures Date Procedure Procedure Detail Performing Clinician Start: 09-18-2023 INFLUENZA VACCINE, PRSV FREE, AGE 65+ YR, HIGH DOSE, QUADRIVALENT (FLUZONE HIGH-DOSE) Adeel Hayes MD Work Phone: Start: 09-18-2022 Radex forearm 2 views Melina Doan APRN.DONOR RELATIONS OFFICER Work Phone: Start: 08-14-2022 INFLUENZA SEASONAL QUADRIVALENT HIGH DOSE AGE 65+ Adeel Hayes MD Work Phone: H/O: artificial joint Aftercare following joint replacement surgery, unspecified joint Adeel Hayes MD Work Phone: H/O: surgery S/P anal fissurectomy Plan of Treatment Date Care Activity Detail Author Start: 03-12-2027 Diabetes Screening Diabetes Screening [facility] Start: 01-18-2027 LIPID SCREEN LIPID SCREEN [facility] Start: 03-09-2026 DIABETES SCREEN DIABETES SCREEN [facility] Start: 03-09-2026 Diabetes Screening Diabetes Screening [facility] Start: 03-01-2026 LIPID SCREEN LIPID SCREEN [facility] Start: 07-09-2025 Annual PCP Team Chronic Disease Visit Annual PCP Team Chronic Disease Visit [facility] Start: 07-09-2025 BP Controlled (<130/80) BP Controlled (<130/80) [facility] Start: 06-30-2025 End: 06-30-2025 Patient encounter procedure 06/30/2025 1:00 PM EDT Office Visit Podiatry [address] [place] [address] Victoria Ashley [address] [place] [address] 6 month follow up foot care Podiatry Comment on above: 6 month follow up foot care Start: 06-23-2025 Annual PCP Team Chronic Disease Visit Annual PCP Team Chronic Disease Visit [facility] Start: 06-23-2025 BP Controlled (<130/80) BP Controlled (<130/80) [facility] Start: 06-09-2025 End: 06-09-2025 Patient encounter procedure 06/09/2025 1:00 PM EDT Office Visit [facility] [place] [address] [facility] [place] [address] Malu Banda APRN.DONOR RELATIONS OFFICER [address] [facility] [place] [address] Medicare Wellness ( RE 06/15/2025) [facility] [place] Comment on above: Medicare Wellness ( RE 06/15/2025) Start: 06-08-2025 Influenza vaccination Influenza Vaccine (#1) [facility] Start: 06-02-2025 End: 06-02-2025 Patient encounter procedure 06/02/2025 1:40 PM EDT Office Visit [facility] [place] [address] [facility] [place] [address] Destini Lee APRN.DONOR RELATIONS OFFICER [address] [place] [address] Medicare Wellness [facility] [place] Comment on above: Medicare Wellness Start: 06-02-2025 End: 06-02-2025 Patient encounter procedure 06/02/2025 9:20 AM EDT Office Visit [facility] [place] [address] [facility] [place] [address] Adeel Hayes MD [address] [facility] [place] [place] [address] Medicare Wellness [facility] [place] Comment on above: Medicare Wellness Start: 05-28-2025 Annual PCP Team Chronic Disease Visit Annual PCP Team Chronic Disease Visit [facility] Start: 03-25-2025 End: 03-25-2025 Patient encounter procedure 03/25/2025 9:20 AM EDT Office Visit [facility] [place] [address] [place] [address] Adeel Hayes MD [address] [place] [address] Medicare Wellness [facility] [place] Comment on above: Medicare Wellness Start: 03-24-2025 DIABETES SCREEN DIABETES SCREEN [facility] Start: 03-12-2025 Annual PCP Team Chronic Disease Visit Annual PCP Team Chronic Disease Visit [facility] Start: 03-12-2025 BP Controlled (<130/80) BP Controlled (<130/80) [facility] Start: 02-11-2025 Annual PCP Team Chronic Disease Visit Annual PCP Team Chronic Disease Visit [facility] Start: 02-11-2025 BP Controlled (<130/80) BP Controlled (<130/80) [facility] Start: 02-10-2025 End: 02-10-2025 Patient encounter procedure Podiatry Comment on above: 5 month follow up nail care Start: 01-18-2025 DIABETES SCREEN DIABETES SCREEN [facility] Start: 12-09-2024 End: 12-09-2024 Patient encounter procedure 12/09/2024 11:20 AM EST Office Visit [facility] Medicine [place] [address] [place] [address] Destini Lee APRN.DONOR RELATIONS OFFICER [address] [place], [place] [id number] 6 month follow up [facility] [place] Comment on above: 6 month follow up Start: 11-30-2024 Annual PCP Team Chronic Disease Visit Annual PCP Team Chronic Disease Visit [facility] Start: 11-30-2024 BP Controlled (<130/80) BP Controlled (<130/80) [facility] Start: 10-08-2024 Advance Directive Discussion Advance Directive Discussion [facility] Start: 10-08-2024 Medicare Advantage Annual Wellness Visit Medicare Advantage Annual Wellness Visit [facility] Start: 09-23-2024 End: 09-23-2024 Patient encounter procedure 09/23/2024 10:20 AM EST Office Visit [facility] [place] [address] [facility] [place] [address] Adeel Hayes MD [address] [place] [address] 6 month follow up [facility] [place] Comment on above: 6 month follow up Start: 09-18-2024 Annual PCP Team Chronic Disease Visit Annual PCP Team Chronic Disease Visit [facility] Start: 09-18-2024 BP Controlled (<130/80) BP Controlled (<130/80) [facility] Start: 09-18-2024 RSV Vaccine (1 - 1-dose 60+ series) RSV Vaccine (1 - 1-dose 60+ series) [facility] Comment on above: Postponed from 2006 (Declined at t his time) Start: 09-18-2024 RSV Vaccine (1 - 1-dose 75+ series) RSV Vaccine (1 - 1-dose 75+ series) [facility] Comment on above: Postponed from 2021 (Declined at t his time) Start: 09-09-2024 End: 09-09-2024 Patient encounter procedure 09/09/2024 11:15 AM EST Office Visit Podiatry [address] [place] [address] Victoria Ashley [address] [facility] [place] [address] 5 MONTH FOLLOW UP NAIL CARE Podiatry Comment on above: 5 MONTH FOLLOW UP NAIL CARE Start: 08-04-2024 End: 08-04-2024 Patient encounter procedure 08/04/2024 1:00 PM EDT Office Visit [facility] Medicine [place] [address] [facility] [place] [address] Destini Lee APRN.DONOR RELATIONS OFFICER [address] [place] [address] 6 week follow up [facility] [place] Comment on above: 6 week follow up Start: 07-09-2024 End: 07-09-2024 Patient encounter procedure 07/09/2024 2:40 PM EDT Office Visit [facility] [place] [address] [place] [address] Adeel Hayes MD [address] [facility] [place] [address] balance issue, possible ears [facility] [place] Comment on above: balance issue, possible ears Start: 06-08-2024 [facility] Start: 05-28-2024 End: 05-28-2024 Patient encounter procedure 05/28/2024 2:20 PM EDT Office Visit [facility] [place] [address] [facility] [place] [address] Adeel Hayes MD [address] [place] [address] Medicare wellness/Vitamin question [facility] [place] Comment on above: Medicare wellness/Vitamin question Start: 04-08-2024 End: 04-08-2024 Patient encounter procedure 04/08/2024 11:30 AM EDT Office Visit Podiatry [address] [place], [place] [address] Victoria Ashley [address] [place] [address] nail care Podiatry Comment on above: nail care Start: 03-19-2024 End: 06-18-2024 25-hydroxyvitamin D3 [Mass/volume] in Serum or Plasma VITAMIN D 25 HYDROXY Lab Routine Vitamin D deficiency Encounter for long-term current use of medication Expected: 03/19/2024 (Approximate), Expires: 06/18/2024 [facility] Work Phone: Comment on above: Expected: 03/19/2024 (Approximate), Expi res: 06/18/2024 Start: 03-19-2024 End: 06-18-2024 CBC panel - Blood by Automated count CBC Lab Routine Essential hypertension Encounter for long-term current use of medication Expected: 03/19/2024 (Approximate), Expires: 06/18/2024 [facility] Work Phone: Comment on above: Expected: 03/19/2024 (Approximate), Expi res: 06/18/2024 Start: 03-19-2024 End: 06-18-2024 Comprehensive metabolic 2000 panel - Serum or Plasma COMP METABOLIC PANEL Lab Routine Essential hypertension Vitamin D deficiency Hypokalemia Encounter for long-term current use of medication Expected: 03/19/2024 (Approximate), Expires: 06/18/2024 [facility] Work Phone: Comment on above: Expected: 03/19/2024 (Approximate), Expi res: 06/18/2024 Start: 03-19-2024 End: 06-18-2024 Lipid 1996 panel - Serum or Plasma LIPID PANEL BASIC Lab Routine Essential hypertension Hypertriglyceridemia Encounter for long-term current use of medication Expected: 03/19/2024 (Approximate), Expires: 06/18/2024 [facility] Work Phone: Comment on above: Expected: 03/19/2024 (Approximate), Expi res: 06/18/2024 Start: 03-19-2024 End: 06-18-2024 Magnesium [Mass/volume] in Serum or Plasma MAGNESIUM BLD Lab Routine Encounter for long-term current use of medication Expected: 03/19/2024 (Approximate), Expires: 06/18/2024 [facility] Work Phone: Comment on above: Expected: 03/19/2024 (Approximate), Expi res: 06/18/2024 Start: 03-12-2024 End: 03-12-2024 Patient encounter procedure 03/12/2024 9:40 AM EDT Office Visit [facility] Medicine [place] [address] [place] [id number] Adeel Hayes MD [address] [place] [address] 6 month follow-up [facility] [place] Comment on above: 6 month follow-up Start: 03-10-2024 ANNUAL PCP TEAM CHRONIC DISEASE VISIT ANNUAL PCP TEAM CHRONIC DISEASE VISIT [facility] Start: 03-10-2024 COVID-19 VACCINE (#1) COVID-19 VACCINE (#1) [facility] Comment on above: Postponed from 01/13/1946 (Declined at t his time) Start: 03-10-2024 Urine microalbumin profile [facility] Comment on above: Postponed from 09/27/2022 (Declined at t his time) Start: 03-01-2024 DIABETES SCREEN DIABETES SCREEN [facility] Start: 10-08-2023 Advance Directive Discussion Advance Directive Discussion [facility] Start: 10-04-2023 ANNUAL PCP TEAM CHRONIC DISEASE VISIT ANNUAL PCP TEAM CHRONIC DISEASE VISIT [facility] Start: 10-04-2023 BP CONTROLLED (<130/80) BP CONTROLLED (<130/80) [facility] Start: 09-18-2023 BP CONTROLLED (<130/80) BP CONTROLLED (<130/80) [facility] Start: 08-16-2023 ANNUAL PCP TEAM CHRONIC DISEASE VISIT ANNUAL PCP TEAM CHRONIC DISEASE VISIT [facility] Start: 08-16-2023 BP CONTROLLED (<130/80) BP CONTROLLED (<130/80) [facility] Start: 08-14-2023 ANNUAL PCP TEAM CHRONIC DISEASE VISIT ANNUAL PCP TEAM CHRONIC DISEASE VISIT [facility] Start: 08-14-2023 SHINGRIX VACCINE (2 of 3) SHINGRIX VACCINE (2 of 3) [facility] Comment on above: Postponed from 11/21/2012 (Declined at t his time) Start: 06-08-2023 Covid-19 Vaccine ( season) Covid-19 Vaccine ( season) [facility] Start: 06-08-2023 Influenza vaccination [facility] Start: 03-24-2023 ANNUAL PCP TEAM CHRONIC DISEASE VISIT ANNUAL PCP TEAM CHRONIC DISEASE VISIT [facility] Start: 03-24-2023 BP CONTROLLED (<130/80) BP CONTROLLED (<130/80) [facility] Start: 02-11-2023 End: 04-13-2023 25-hydroxyvitamin D3 [Mass/volume] in Serum or Plasma VITAMIN D 25 HYDROXY Lab Routine Vitamin D deficiency Expected: 02/11/2023 (Approximate), Expires: 04/13/2023 [facility] Work Phone: Comment on above: Expected: 02/11/2023 (Approximate), Expi res: 04/13/2023 Start: 02-11-2023 End: 04-13-2023 CBC panel - Blood by Automated count CBC Lab Routine Essential hypertension Encounter for long-term current use of medication Expected: 02/11/2023 (Approximate), Expires: 04/13/2023 [facility] Work Phone: Comment on above: Expected: 02/11/2023 (Approximate), Expi res: 04/13/2023 Start: 02-11-2023 End: 04-13-2023 Comprehensive metabolic 2000 panel - Serum or Plasma COMP METABOLIC PANEL Lab Routine Hypokalemia Essential hypertension Encounter for long-term current use of medication Expected: 02/11/2023 (Approximate), Expires: 04/13/2023 [facility] Work Phone: Comment on above: Expected: 02/11/2023 (Approximate), Expi res: 04/13/2023 Start: 02-11-2023 End: 04-13-2023 Lipid 1996 panel - Serum or Plasma LIPID PANEL BASIC Lab Routine Hypertriglyceridemia Expected: 02/11/2023 (Approximate), Expires: 04/13/2023 [facility] Work Phone: Comment on above: Expected: 02/11/2023 (Approximate), Expi res: 04/13/2023 Start: 02-11-2023 End: 04-13-2023 Magnesium [Mass/volume] in Serum or Plasma MAGNESIUM BLD Lab Routine Encounter for long-term current use of medication Expected: 02/11/2023 (Approximate), Expires: 04/13/2023 [facility] Work Phone: Comment on above: Expected: 02/11/2023 (Approximate), Expi res: 04/13/2023 Start: 10-08-2022 ADVANCE DIRECTIVE DISCUSSION ADVANCE DIRECTIVE DISCUSSION [facility] Start: 09-27-2022 Urine microalbumin profile [facility] Start: 08-17-2022 ANNUAL PCP TEAM CHRONIC DISEASE VISIT ANNUAL PCP TEAM CHRONIC DISEASE VISIT [facility] Start: 08-17-2022 BP CONTROLLED (<130/80) BP CONTROLLED (<130/80) [facility] Start: 08-17-2022 COVID-19 VACCINE (#1) COVID-19 VACCINE (#1) [facility] Comment on above: Postponed from 1951 (Declined at t his time) Postponed from 01/13 (Declined at this time) Start: 08-17-2022 COVID-19 VACCINE (1) COVID-19 VACCINE (1) [facility] Comment on above: Postponed from 1951 (Declined at t his time) Start: 06-08-2022 Influenza vaccination INFLUENZA (#1) [facility] Start: 04-29-2022 End: 06-29-2022 POTASSIUM BLD POTASSIUM BLD Lab Routine Hypokalemia Expected: 04/29/2022 (Approximate), Expires: 06/29/2022 [facility] Work Phone: Comment on above: Expected: 04/29/2022 (Approximate), Expi res: 06/29/2022 Start: 03-22-2022 SHINGRIX VACCINE (2 of 3) SHINGRIX VACCINE (2 of 3) [facility] Comment on above: Postponed from 11/21/2012 (Declined at t his time) Start: 01-06-2022 End: 03-08-2022 CBC panel - Blood by Automated count CBC Lab Routine Essential hypertension Expected: 01/06/2022 (Approximate), Expires: 03/08/2022 [facility] Work Phone: Comment on above: Expected: 01/06/2022 (Approximate), Expi res: 03/08/2022 Start: 01-06-2022 End: 03-08-2022 Comprehensive metabolic 2000 panel - Serum or Plasma COMP METABOLIC PANEL Lab Routine Hypertriglyceridemia Essential hypertension Expected: 01/06/2022 (Approximate), Expires: 03/08/2022 [facility] Work Phone: Comment on above: Expected: 01/06/2022 (Approximate), Expi res: 03/08/2022 Start: 01-06-2022 End: 03-08-2022 LIPID PANEL BASIC LIPID PANEL BASIC Lab Routin e Hypertriglyceridemia Expected: 01/06/2022 (Approximate), Expires: 03/08/2022 [facility] Work Phone: Comment on above: Expected: 01/06/2022 (Approximate), Expi res: 03/08/2022 Start: 01-06-2022 End: 03-08-2022 VITAMIN D 25 HYDROXY VITAMIN D 25 HYDROXY Lab Routine Vitamin D deficiency Expected: 01/06/2022 (Approximate), Expires: 03/08/2022 [facility] Work Phone: Comment on above: Expected: 01/06/2022 (Approximate), Expi res: 03/08/2022 Start: 10-08-2021 ADVANCE DIRECTIVE DISCUSSION ADVANCE DIRECTIVE DISCUSSION [facility] Start: 2021 RSV Vaccine (1 - 1-dose 75+ series) RSV Vaccine (1 - 1-dose 75+ series) [facility] Start: 08-20-2020 COLORECTAL CANCER SCREENING COLORECTAL CANCER SCREENING [facility] Start: 08-20-2020 FECAL OCCULT BLOOD FECAL OCCULT BLOOD [facility] Start: 08-20-2020 Screening for malignant neoplasm of colon Fecal Occult Blood [facility] Start: 11-21-2012 SHINGRIX VACCINE (2 of 3) SHINGRIX VACCINE (2 of 3) [facility] Start: 2011 BONE DENSITY BONE DENSITY [facility] Start: 2011 Bone Density Screening Bone Density Screening [facility] Start: 2011 Screening for osteoporosis Bone Density Screening [facility] Start: 2006 RSV Vaccine (1 - 1-dose 60+ series) RSV Vaccine (1 - 1-dose 60+ series) [facility] Start: 1991 COLOGUARD (FIT-DNA) COLOGUARD (FIT-DNA) [facility] Start: 1991 Colonoscopy COLONOSCOPY [facility] Start: [address] COLONOGRAPHY [facility] Start: 1991 SIGMOIDOSCOPY SIGMOIDOSCOPY [facility] Start: 1963 BP CONTROLLED (<130/80) BP CONTROLLED (<130/80) [facility] Start: 01-13-1946 COVID-19 VACCINE (#1) COVID-19 VACCINE (#1) [facility] End: 10-17-2024 BD DXA TRABECULAR BONE SCORE (TBS) BD DXA TRABECULAR BONE SCORE (TBS) Radiology Routine Asymptomatic postmenopausal status 1 Occurrences starting 09/18/2023 until 10/17/2024 [facility] Work Phone: Comment on above: 1 Occurrences starting 09/18/2023 until 10/17/2024 End: 12-29-2024 BD DXA TRABECULAR BONE SCORE (TBS) BD DXA TRABECULAR BONE SCORE (TBS) Radiology Routine Asymptomatic postmenopausal status 1 Occurrences starting 11/30/2023 until 12/29/2024 [facility] Work Phone: Comment on above: 1 Occurrences starting 11/30/2023 until 12/29/2024 End: 09-13-2023 Dxa bone density study 1/> sites axial skel DXA-AXIAL SKELETON Radiology Routine Asymptomatic postmenopausal status 1 Occurrences starting 08/14/2022 until 09/13/2023 [facility] Work Phone: Comment on above: 1 Occurrences starting 08/14/2022 until 09/13/2023 End: 12-29-2024 DXA Skeletal system.axial Views for bone density DXA-AXIAL SKELETON Radiology Routine Asymptomatic postmenopausal status 1 Occurrences starting 11/30/2023 until 12/29/2024 [facility] Work Phone: Comment on above: 1 Occurrences starting 11/30/2023 until 12/29/2024 End: 10-17-2024 DXA-AXIAL SKELETON DXA-AXIAL SKELETON Radiology Routine Asymptomatic postmenopausal status 1 Occurrences starting 09/18/2023 until 10/17/2024 [facility] Work Phone: Comment on above: 1 Occurrences starting 09/18/2023 until 10/17/2024 Hemoglobin.gastroint es tinal.lower [Presence] in Stool by Immunoassay FECAL OCCULT BLOOD TEST Lab Routine Colon cancer screening Ordered: 08/14/2022 [facility] Work Phone: Comment on above: Ordered: 08/14/2022 Hemoglobin.gastroint es tinal.lower [Presence] in Stool by Immunoassay FECAL OCCULT BLOOD TEST Lab Routine Screening for colon cancer Ordered: 03/10/2023 [facility] Work Phone: Comment on above: Ordered: 03/10/2023 Hemoglobin.gastroint es tinal.lower [Presence] in Stool by Immunoassay IMMUNOCHEMICAL FECAL OCCULT BLOOD TEST Lab Routine Screening for colon cancer Ordered: 03/12/2024 [facility] Work Phone: Comment on above: Ordered: 03/12/[address] [facility] Immunizations Immunization Date Immunization Notes Care Provider [facility] 07-09-2024 influenza, high dose seasonal, preservative-free Adeel Hayes MD Work Phone: [facility] 07-09-2024 influenza virus vacc ine, unspecified formulation Adeel Hayes MD Work Phone: [facility] 09-18-2023 influenza (HD-IIV4) vaccine, age 65+ yr, high dose, quadrivalent, PF (FLUZONE HIGH-DOSE) Adeel Hayes MD Work Phone: [facility] 09-18-2023 influenza virus vacc ine, unspecified formulation Victoria Gabi Work Phone: [facility] 08-14-2022 influenza, high-dose , quadrivalent vaccine (FLUZONE HIGH DOSE QUADRIVALENT) Adeel Hayes MD Work Phone: [facility] 08-14-2022 influenza virus vacc ine, unspecified formulation Adeel Hayes MD Work Phone: [facility] 08-17-2021 influenza, high-dose , quadrivalent vaccine (FLUZONE HIGH DOSE QUADRIVALENT) Adeel Hayes MD Work Phone: [facility] 08-24-2020 Influenza virus vaccine [facility] 08-24-2020 influenza, seasonal, injectable, preservative free Adeel Hayes MD Work Phone: [facility] 08-18-2020 influenza, high-dose , quadrivalent vaccine (FLUZONE HIGH DOSE QUADRIVALENT) Adeel Hayes MD Work Phone: [facility] 07-25-2019 influenza, high dose seasonal, preservative-free Adeel Hayes MD Work Phone: [facility] 08-12-2018 influenza, high dose seasonal, preservative-free Adeel Hayes MD Work Phone: [facility] 07-28-2017 influenza, high dose seasonal, preservative-free Adeel Hayes MD Work Phone: [facility] 01-23-2017 pneumococcal conjuga te vaccine, 13 valent Adeel Hayes MD Work Phone: [facility] 08-01-2016 influenza, high dose seasonal, preservative-free Adeel Hayes MD Work Phone: [facility] 07-06-2014 influenza, seasonal, injectable Adeel Hayes MD Work Phone: [facility] 07-23-2013 influenza virus vacc ine, unspecified formulation Adeel Hayes MD Work Phone: [facility] 09-27-2012 tetanus toxoid, redu elvira diphtheria toxoid, and acellular pertussis vaccine, adsorbed Adeel Hayes MD Work Phone: [facility] 09-26-2012 tetanus and diphther ia toxoids, adsorbed, preservative free, for adult use (2 Lf of tetanus toxoid and 2 Lf of diphtheria toxoid) Adeel Hayes MD Work Phone: [facility] 09-26-2012 zoster vaccine, live Adeel ralph MD Work Phone: [facility] 09-06-2012 influenza virus vacc ine, unspecified formulation Adeel Hayes MD Work Phone: [facility] 09-13-2011 pneumococcal polysaccharide vaccine, 23 valent Adeel Hayes MD Work Phone: [facility] 07-22-2009 influenza virus vacc ine, unspecified formulation Adeel Hayes MD Work Phone: [facility] 08-07-2006 influenza virus vacc ine, unspecified formulation Adeel Haeys MD Work Phone: [facility] Payers Date Payer Category Payer Self-pay [id number] 2024 Unknown [id number] 2022 Medicare (Managed Care) [id number]. [id number] 2022 Unknown [id number] 2022 Unknown [id number] 2021 Medicare HUMANA MEDICARE HU[employer]NA MEDICARE PPO [id number] 2021-Present [phone] [address] [address] [place] [address] PPO [id number] 2021 Medicare [id number] Medicare HUMANA MEDICARE PPO [id number] Medicare MEDICARE PART A B [id number] Unknown [id number] Social History Date Type Detail Facility Start: 02-04-2018 End: 09-18-2022 Tobacco smoking status NHIS Never smoked tobacco [facility] Start: 08-17-2021 End: 02-10-2025 Alcohol intake Current non-drinker of alcohol (finding) [facility] Start: 1945 Sex Assigned At Not on file [facility] Start: 01-08-2022 End: 08-14-2022 Exposure to SARS-CoV-2 (event) Not sure [facility] Work Phone: Start: 02-04-2018 End: 09-18-2022 Tobacco use and exposure Smokeless tobacco non-user [facility] Start: 1945 Sex Assigned At Female [facility] Start: 05-26-2021 [facility] ever smoked [facility] Start: 09-10-2020 Non-smoker [facility] Start: 05-21-2023 End: 02-10-2025 History of Social function [facility] Start: 05-21-2023 End: 02-10-2025 Tobacco use panel [facility] Adult Depression Screening Assessment 0 [facility] How often to you hav e a drink containing alcohol? 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 FDA Start: 11-24-2020 Minimally invasive total replacement of hip joint by anterior approach ACETABULAR SHELL FDA Start: 11-24-2020 Minimally invasive total replacement of hip joint by anterior approach CERAMIC V40 FEMORAL HEAD FDA Start: 11-24-2020 Minimally invasive total replacement of hip joint by anterior approach POLY INSERT FDA Start: 11-24-2020 Functional Status Date Assessment Result Facility 05-12-2015 Are you deaf, or do you have serious difficulty hearing No 05/12/2015 9:42 AM Bella Hirsch LPN No [facility] 05-12-2015 Are you blind, or do you have serious difficulty seeing, even when wearing glasses No 05/12/2015 9:42 AM Bella Hirsch LPN No [facility] 05-12-2015 Do you have serious difficulty walking or climbing stairs No 05/12/2015 9:42 AM Bella Hirsch LPN No [facility] 05-12-2015 Do you have difficul ty dressing or bathing No 05/12/2015 9:42 AM EDT Bella Zelaya LPN No [facility] 05-12-2015 Because of a physica l, mental, or emotional condition, do you have difficulty doing errands alone such as visiting a physician's office or shopping No 05/12/2015 9:42 AM EDT Bella Zelaya LPN No [facility] Mental Status Date Assessment Result Facility 05-12-2015 Because of a physica l, mental, or emotional condition, do you have serious difficulty concentrating, remembering, or making decisions No 05/12/2015 9:42 AM EDT Bella Zelaya LPN No [facility] Clinical Notes 12-31-2021 to 04-08-2025 Telephone Encounter - Daniela Gordon RN - 04/08/2025 10:59 AM EDTTelephone Encounter - Daniela Gordon RN - 04/08/2025 10:59 AM EDTTVictoria poe - 02/10/2025 1:31 PM EDT Note Date & Type Note Facility 04-08-2025 Telephone encounter Note Patient calls back and message below reviewed with verbalized understanding. Patient reports that she has already tried PT for the symptoms so if anything will want consult to neurology. Reports she will monitor symptoms and call back if desires consult. Daniela Gordon RN [facility] 04-08-2025 Miscellaneous Notes Patient calls back and message below reviewed with verbalized understanding. Patient reports that she has already tried PT for the symptoms so if anything will want consult to neurology. Reports she will monitor symptoms and call back if desires consult. Daniela Gordon RN I sent order to d/c the sertraline in case it was causing or contributing to the falls. See how she does off the med. If ongoing issues with falls, consider evaluation with PT and/or neurology Patient calls to check on status of request of message below. Reports AL staff received a fax that she should discontinue sertraline. Recommended patient follow the directions that patient received from AL staff since fax would have been from provider. Daniela Gordon RN Patient calls and states that she does not know what is making her loopy. Patient states that if feels like someone is pushing her and making her fall. Patient states that she has fallen 3 different times in a month. Patient asking if sertraline can be causing this? Patient's family had requested medication to be discontinued. See telephone encounter from 03/30/2025 where Vale from [facility] was asking about discontinuing medication and had faxed over orders to do that. Please review and advise, Carla Bejarano RN documented in this encounter [facility] 04-07-2025 Telephone encounter Note I sent order to d/c the sertraline in case it was causing or contributing to the falls. See how she does off the med. If ongoing issues with falls, consider evaluation with PT and/or neurology [facility] 04-07-2025 Telephone encounter Note Patient calls to check on status of request of message below. Reports AL staff received a fax that she should discontinue sertraline. Recommended patient follow the directions that patient received from AL staff since fax would have been from provider. Daniela Gordon RN [facility] 04-07-2025 Telephone encounter Note Patient calls and states that she does not know what is making her loopy. Patient states that if feels like someone is pushing her and making her fall. Patient states that she has fallen 3 different times in a month. Patient asking if sertraline can be causing this? Patient's family had requested medication to be discontinued. See telephone encounter from 03/30/2025 where Vale from [facility] was asking about discontinuing medication and had faxed over orders to do that. Please review and advise, Carla Bejarano RN [facility] 03-30-2025 Telephone encounter Note Vale from [facility] calls and states that they had received fax order to decrease sertraline. Family is asking for medication to be discontinued completely. Vale is faxing orders again to have medication discontinued. Please review and advise, Carla Bejarano RN [facility] 03-30-2025 Miscellaneous Notes Vale from [facility] calls and states that they had received fax order to decrease sertraline. Family is asking for medication to be discontinued completely. Vale is faxing orders again to have medication discontinued. Please review and advise, Carla Bejarano RN documented in this encounter [facility] 02-10-2025 Note HNO ID: [id number] Author: VICTORIA ASHLEY, ? Service: ? Author Type: Physician Type: Progress Notes Filed: 02/10/2025 13:41 Note Text: Subjective: Patient presents to clinic c/o painful toenails. They state that the nails are especially painful with shoe gear and pressure. Patient states that nails 1-5 b/l are painful. Patient admits to having a painful corn to the right 5th toe. No other pedal complaints at this time. Patient states no change in medications or medical history since last visit. Objective: Patient presents to clinic ambulating in dress shoes Vasc: DP and PT pulses are faintly palpable bilateral. CFT is less than 5 seconds bilateral. Skin temperature is warm to cool proximal to distal bilateral. There is mild edema or varicosities noted. Neuro: Protective sensation is intact to the foot and toes when tested with the 5.07 SWM bilateral. The hallux is downgoing bilateral. Derm: Nails 1-5 b/l are painful, discolored-yellow, thick, crumbly, dystrophic and with subungal debris. Skin is of normal turgor, texture and hair growth is present bilateral. There are callus to right 5th toe. No ulceration. Ortho: Muscle strength is 5/5 for all pedal groups tested. Ankle joint DF is decreased with the knee extended with no pain or crepitus noted. 1st MPJ ROM is decreased bilateral. Rigid hammertoe is noted to right 5th toe Assessment: (B35.1) Onychomycosis (primary encounter diagnosis) (M79.675) Pain in toe of left foot (M79.674) Pain in toe of right foot (L84) Callus of foot (M20.41) Hammer toe of right foot Plan: Patient was seen and evaluated. Nails 1-5 bilateral were debrided in length and thickness. Small bleed to right 5th toe. Band aide applied. Discussed the corn of right 5th toe. This is caused by hammertoe. Options discussed include padding and periodic filing vs derotational arthroplasty. She is going to continue with padding. RTC in 4-5 months Victoria Ashley DPM [facility] 02-10-2025 History of Present illness Narrative Subjective: Patient presents to clinic c/o painful toenails. They state that the nails are especially painful with shoe gear and pressure. Patient states that nails 1-5 b/l are painful. Patient admits to having a painful corn to the right 5th toe. No other pedal complaints at this time. Patient states no change in medications or medical history since last visit. Objective: Patient presents to clinic ambulating in dress shoes Vasc: DP and PT pulses are faintly palpable bilateral. CFT is less than 5 seconds bilateral. Skin temperature is warm to cool proximal to distal bilateral. There is mild edema or varicosities noted. Neuro: Protective sensation is intact to the foot and toes when tested with the 5.07 SWM bilateral. The hallux is downgoing bilateral. Derm: Nails 1-5 b/l are painful, discolored-yellow, thick, crumbly, dystrophic and with subungal debris. Skin is of normal turgor, texture and hair growth is present bilateral. There are callus to right 5th toe. No ulceration. Ortho: Muscle strength is 5/5 for all pedal groups tested. Ankle joint DF is decreased with the knee extended with no pain or crepitus noted. 1st MPJ ROM is decreased bilateral. Rigid hammertoe is noted to right 5th toe Assessment: (B35.1) Onychomycosis (primary encounter diagnosis) (M79.675) Pain in toe of left foot (M79.674) Pain in toe of right foot (L84) Callus of foot (M20.41) Hammer toe of right foot Plan: Patient was seen and evaluated. Nails 1-5 bilateral were debrided in length and thickness. Small bleed to right 5th toe. Band aide applied. Discussed the corn of right 5th toe. This is caused by hammertoe. Options discussed include padding and periodic filing vs derotational arthroplasty. She is going to continue with padding. RTC in 4-5 months Victoria Ashley DPM Patient presents with: Left Foot - Established Patient, Follow Up, nail care Right Foot - Established Patient, Follow Up, nail care Patient presents for 5 month follow up nail care. [facility] 09/09/24 documented in this encounter [facility] 02-10-2025 Note HNO ID: [id number] Author: DEIDRA CURRY RN Service: ? Author Type: Registered Nurse Type: Progress Notes Filed: 02/10/2025 13:41 Note Text: Patient presents with: Left Foot - Established Patient, Follow Up, nail care Right Foot - Established Patient, Follow Up, nail care Patient presents for 5 month follow up nail care. [facility] 09/09/24 [facility] 01-27-2025 Telephone encounter Note Completed and faxed back 01/27/25 [facility] 01-27-2025 Miscellaneous Notes Completed and faxed back 01/27/25 Reviewed and signed Office received faxed from [facility] regarding patient on 01/23/25. Neuro checks completed and to follow for review. Please review fax and complete. Once complete fax back to [facility] at [phone]. Office received fax regarding patient on 01/20/25 with update regarding fall. Please review fax and note. Once complete fax back to [facility] at [phone] Routed to PCP. Vickie Mckeon MA documented in this encounter [facility] 01-26-2025 Telephone encounter Note Reviewed and signed [facility] 01-26-2025 Telephone encounter Note Office received faxed from [facility] regarding patient on 01/23/25. Neuro checks completed and to follow for review. Please review fax and complete. Once complete fax back to [facility] at [phone]. Office received fax regarding patient on 01/20/25 with update regarding fall. Please review fax and note. Once complete fax back to [facility] at [phone] Routed to PCP. Vickie Mckeon MA [facility] 12-23-2024 Telephone encounter Note Noted. [place] [facility] 12-23-2024 Miscellaneous Notes Noted. Okay Angie from [facility] calling to report patient had fall on 12/17/2024, no injury. She is bruised on her buttocks, and right ear. Patient not sure if she tried to get up with having her pants pulled up all the way. Needed help to return to her feet. Patient is d/c from OT today is doing transfers with no issues. documented in this encounter [facility] 12-23-2024 Telephone encounter Note Angie from [facility] calling to report patient had fall on 12/17/2024, no injury. She is bruised on her buttocks, and right ear. Patient not sure if she tried to get up with having her pants pulled up all the way. Needed help to return to her feet. Patient is d/c from OT today is doing transfers with no issues. [facility] 12-16-2024 Telephone encounter Note Home care Certification Form 485 received from [facility]. For cert dates 11/23/24-01/21/25 that were signed on 12/08/24. New Certification Patient's home health 485 form / care plan for stated certification period reviewed and signed. Relevant medical records were reviewed. No changes were indicated [facility] 12-16-2024 Miscellaneous Notes Home care Certification Form 485 received from [facility]. For cert dates 11/23/24-01/21/25 that were signed on 12/08/24. New Certification Patient's home health 485 form / care plan for stated certification period reviewed and signed. Relevant medical records were reviewed. No changes were indicated documented in this encounter [facility] 11-26-2024 Telephone encounter Note Below response left on secure identified vm. Ameena Truong LPN [facility] 11-26-2024 Miscellaneous Notes Below response left on secure identified vmAminah Truong LPN OK for all HHC. Florence with [facility] is calling with POC. Florence reports PT will see pt twice a week x 2 weeks, then once a week x 3 weeks for strengthening and balance. Florence is also requesting a VO for SW. Pt is anxious about POA and would like to get Life Alert and has other concerns that SW could help pt with. Call Florence with provider's VO for SW order and agreement with POC. Winifred Calixto LPN documented in this encounter [facility] 11-25-2024 Telephone encounter Note OK for all [facility]. [facility] 11-25-2024 Telephone encounter Note Florence with [facility] is calling with POC. Florence reports PT will see pt twice a week x 2 weeks, then once a week x 3 weeks for strengthening and balance. Florence is also requesting a VO for SW. Pt is anxious about POA and would like to get Life Alert and has other concerns that SW could help pt with. Call Florence with provider's VO for SW order and agreement with POC. Winifred Calixto LPN [facility] 11-18-2024 Telephone encounter Note Pt calls requesting a copy of DNR be mailed to her. Per Niki Anne RN it is ok to send. DNR mailed as requested. Winifred Calixto LPN [facility] 11-18-2024 Miscellaneous Notes Pt calls requesting a copy of DNR be mailed to her. Per Niki Anne RN it is ok to send. DNR mailed as requested. Winifred Calixto LPN documented in this encounter [facility] 11-14-2024 Telephone encounter Note Mami aware and states patient will be discharged but unsure if home or assisted living. States they are looking into this and will call office back with any new information or orders if needed. [facility] 11-14-2024 Miscellaneous Notes Mami aware and states patient will be discharged but unsure if home or assisted living. States they are looking into this and will call office back with any new information or orders if needed. Will follow, but I thought patient was still at assisted living since got fax from nurse there about a prescription clarification. 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 Pt went home from [facility] on 11-06-24. Please advise Mami with verbal order. Okay to leave a detailed message. Chelsi Osorio LPN documented in this encounter [facility] 11-14-2024 Telephone encounter Note Will follow, but I thought patient was still at assisted living since got fax from nurse there about a prescription clarification. 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 Pt went home from [facility] on 11-06-24. Please advise Mami with verbal order. Okay to leave a detailed message. Chelsi Osorio LPN [facility] 11-04-2024 Telephone encounter Note Order for PT at [facility] was faxed to [facility] 11-04-2024 Miscellaneous Notes Order for PT at [facility] was faxed to [facility]. Spoke with patient and advised that both PT for leg strength and hand can be faxed to [facility]. Patient advised that [facility] staff told her that they do not accept her insurance, so she is unsure of what is going on and where she will be going. Patient is calling [facility] to notify of the insurance situation and patient or [facility] will call back to notify this office where patient will be receiving care. Once notified of patient's care facility, please fax both PT orders from 10/29/24 and 10/31/24 to the appropriate care facility. Filed differently as outside [facility] order but should work as well TC to patient who is notified order is placed for leg strength as requested. Patient also asking that additional PT order be placed for weakness in her right hand. Patient states she cannot write and thinks PT would help with this. Advised patient PCP is out of office and would not be able to address today. Patient verbalized understanding and is asking for call back with providers message. GLORIA Swanson Fax order Patient reports she is at [facility], Assisted Living, and would like an order for Physical Therapy there, to help strengthen her legs. She reports she uses a walker. Asking if PCP would place order. Pended. Please call patient with reply, and call [facility], assisted living nurse, with PT order update as well. [phone]. Meredith Varela, RN documented in this encounter [facility] 11-03-2024 Telephone encounter Note Fax rec'd from [facility]. Last saw pcp 07/09/24. [facility] 11-03-2024 Miscellaneous Notes [facility]. Last saw pcp 07/09/24. documented in this encounter [facility] 10-31-2024 Telephone encounter Note Spoke with patient and advised that both PT for leg strength and hand can be faxed to [facility]. Patient advised that [facility] staff told her that they do not accept her insurance, so she is unsure of what is going on and where she will be going. Patient is calling [facility] to notify of the insurance situation and patient or [facility] will call back to notify this office where patient will be receiving care. Once notified of patient's care facility, please fax both PT orders from 10/29/24 and 10/31/24 to the appropriate care facility. [facility] 10-30-2024 Telephone encounter Note Filed differently as outside [facility] order but should work as well [facility] 10-30-2024 Telephone encounter Note TC to patient who is notified order is placed for leg strength as requested. Patient also asking that additional PT order be placed for weakness in her right hand. Patient states she cannot write and thinks PT would help with this. Advised patient PCP is out of office and would not be able to address today. Patient verbalized understanding and is asking for call back with providers message. GLORIA Swanson [facility] 10-29-2024 Telephone encounter Note Fax order [facility] 10-29-2024 Telephone encounter Note Patient reports she is at [facility]isted [facility], and would like an order for Physical Therapy there, to help strengthen her legs. She reports she uses a walker. Asking if PCP would place order. Pended. Please call patient with reply, and call [facility], assisted living nurse, with PT order update as well. [phone]. Meredith Varela RN [facility] 10-05-2024 Telephone encounter Note The following approved medication requests have been transmitted electronically. Requested Prescriptions Signed Prescriptions Disp Refills ALPRAZolam (XANAX) 0.25 mg tablet 14 tablet 0 Sig: Take 1 tablet by mouth once daily as needed for anxiety for up to 30 days. Authorizing Provider: ADEEL HAYES MD [facility] 10-05-2024 Miscellaneous Notes The following approved medication requests have been transmitted electronically. Requested Prescriptions Signed Prescriptions Disp Refills ALPRAZolam (XANAX) 0.25 mg tablet 14 tablet 0 Sig: Take 1 tablet by mouth once daily as needed for anxiety for up to 30 days. Authorizing Provider: ADEEL HAYES MD Spoke with nurse at [facility]. Order for medication needs to be sent to [facility]. Copy of this encounter has been faxed to [facility] at [phone] Noted last RX from 02/11 for 0.25mg pill Not sure where to send RX Since does not take often, i wrote for 1 pill once daily as needed for 14 pills; needs to have a time frame with [facility] RX orders, so wrote for 30 days, but may keep the RX on hand at [facility] to keep on hand to use as needed for occasional episode of anxiety. Pt checking on her request for xanax Rx. See message below. Patient calls to ask if provider would send a small supply of xanax to [facility]. Patient reports in the past she has taken it rarely on an as needed basis and feels it would help her anxiety if she could have a small amount on hand at the facility. Patient reports if provider is agreeable to send to the nursing department at [facility]. Daniela Gordon RN documented in this encounter [facility] 10-04-2024 Telephone encounter Note Spoke with nurse at [facility]. Order for medication needs to be sent to [facility]. Copy of this encounter has been faxed to [facility] at [phone] [facility] 10-04-2024 Telephone encounter Note Noted last RX from 02/11 for 0.25mg pill Not sure where to send RX Since does not take often, i wrote for 1 pill once daily as needed for 14 pills; needs to have a time frame with [facility] RX orders, so wrote for 30 days, but may keep the RX on hand at [facility] to keep on hand to use as needed for occasional episode of anxiety. [facility] 10-03-2024 Telephone encounter Note Pt checking on her request for xanax Rx. See message below. [facility] 09-25-2024 Telephone encounter Note Patient calls to ask if provider would send a small supply of xanax to [facility]. Patient reports in the past she has taken it rarely on an as needed basis and feels it would help her anxiety if she could have a small amount on hand at the facility. Patient reports if provider is agreeable to send to the nursing department at [facility]. Daniela Gordon RN [facility] 09-22-2024 Telephone encounter Note Gricelda nurse from [facility] called and is notified of providers message and instructions. She voices understanding and states they received the fax this morning. Deidra Flores RN [facility] 09-22-2024 Miscellaneous Notes Gricelda nurse from [facility] called and is notified of providers message and instructions. She voices understanding and states they received the fax this morning. Diedra Flores RN Noted The following approved medication requests have been transmitted electronically. Requested Prescriptions Signed Prescriptions Disp Refills sertraline (ZOLOFT) 25 mg tablet 90 tablet 3 Sig: Take 1 tablet by mouth once daily. Authorizing Provider: ADEEL HAYES MD Colette Whitten LPN from [facility] calls and states that patient has been on medication since being admitted to their facility on 08/04/2024. Medication was listed on patient's history and physical and other paperwork that was faxed over to [facility]. [facility] has not noticed any adverse effects while patient has been on medication. Patient has not be groggy. Colette would like for patient to continue medication since she has been taking this medication. Please review and advise, Carla Bejarano RN Called and left a detailed voicemail notifying [facility] nurse [facility] of providers message. Clinic phone number was left for the nurse to call back and answer providers questions. Called Pt and no answer. Pt did not have voicemail set up. Will need to call back. Deidra Flores RN Verify with patient if she wants to take this med. Our medlist states that she either did not start the med or she stopped taking it due to thinking the med made her feel groggy. Looks like last time was filled was 06/23/24 per Medication Dispense History. Fax rec'd from [facility] for sertraline 25mg one tablet daily #90 with 3 refills. Please review. This medicine is not on pts med list. Last seen in office with pcp 07/09/24. documented in this encounter [facility] 09-22-2024 Telephone encounter Note Noted The following approved medication requests have been transmitted electronically. Requested Prescriptions Signed Prescriptions Disp Refills sertraline (ZOLOFT) 25 mg tablet 90 tablet 3 Sig: Take 1 tablet by mouth once daily. Authorizing Provider: ADEEL HAYES MD [facility] 09-22-2024 Telephone encounter Note Colette Whitten LPN from [facility] calls and states that patient has been on medication since being admitted to their facility on 08/04/2024. Medication was listed on patient's history and physical and other paperwork that was faxed over to [facility]. [facility] has not noticed any adverse effects while patient has been on medication. Patient has not be groggy. Colette would like for patient to continue medication since she has been taking this medication. Please review and advise, Carla Bejarano RN [facility] 09-18-2024 Telephone encounter Note Called and left a detailed voicemail notifying [facility] nurse [facility] of providers message. Clinic phone number was left for the nurse to call back and answer providers questions. Called Pt and no answer. Pt did not have voicemail set up. Will need to call back. Deidra Flores RN [facility] 09-18-2024 Telephone encounter Note Verify with patient if she wants to take this med. Our medlist states that she either did not start the med or she stopped taking it due to thinking the med made her feel groggy. Looks like last time was filled was 06/23/24 per Medication Dispense History. [facility] 09-16-2024 Telephone encounter Note Fax rec'd from [facility] asking [facility] for sertraline 25mg one tablet daily #90 with 3 refills. Please review. This medicine is not on pts med list. Last seen in office with pcp 07/09/24. [facility] 09-16-2024 Telephone encounter Note Pt called in asking if Dr Hayes takes [facility]. I told her I didn't know, but I could send a message through to Dr Hayes's office. I also told her she could call her insurance company and they should have a list of providers they cover. [facility] 09-16-2024 Miscellaneous Notes Pt called in asking if Dr Hayes takes [facility]. I told her I didn't know, but I could send a message through to Dr Hayes's office. I also told her she could call her insurance company and they should have a list of providers they cover. documented in this encounter [facility] 09-09-2024 Note HNO ID: [id number] Author: VICTORIA ASHLEY, ? Service: ? Author Type: Physician Type: Progress Notes Filed: 09/09/2024 11:38 Note Text: Subjective: Patient presents to clinic c/o painful toenails. They state that the nails are especially painful with shoe gear and pressure. Patient states that nails 1 b/l are painful. No other pedal complaints at this time. Patient states no change in medications or medical history since last visit. Objective: Patient presents to clinic ambulating in sneakers Vasc: DP and PT pulses are palpable bilateral. CFT is less than 5 seconds bilateral. Skin temperature is warm to cool proximal to distal bilateral. There is mild edema or varicosities noted. Neuro: Protective sensation is intact to the foot and toes when tested with the 5.07 SWM bilateral. Vibratory sensation is decreased at the hallux IPJ bilateral. The hallux is downgoing bilateral. Derm: Nails 1-5 b/l are painful, discolored-yellow, thick, crumbly, dystrophic and with subungal debris. Skin is of normal turgor, texture and hair growth is present bilateral. There are minimal callus of right 5th toe. No ulcerations, scars, verruca or other lesions noted. Ortho: Muscle strength is 5/5 for all pedal groups tested. Ankle joint DF is decreased with the knee extended with no pain or crepitus noted. 1st MPJ ROM is decreased bilateral. Assessment: (B35.1) Onychomycosis (primary encounter diagnosis) (M79.675) Pain in toe of left foot (M79.674) Pain in toe of right foot Plan: Patient was seen and evaluated. Nails 1-5 bilateral were debrided in length and thickness. Small bleed to right 5th toe. Band aide applied. Discussed removal of left great toenail in the future. Patient is not interested. Small callus reduced to right 5th toe with dremmel. Patient to follow-up in 5 months Victoria Ashley DPM [facility] 09-09-2024 History of Present illness Narrative Subjective: Patient presents to clinic c/o painful toenails. They state that the nails are especially painful with shoe gear and pressure. Patient states that nails 1 b/l are painful. No other pedal complaints at this time. Patient states no change in medications or medical history since last visit. Objective: Patient presents to clinic ambulating in sneakers Vasc: DP and PT pulses are palpable bilateral. CFT is less than 5 seconds bilateral. Skin temperature is warm to cool proximal to distal bilateral. There is mild edema or varicosities noted. Neuro: Protective sensation is intact to the foot and toes when tested with the 5.07 SWM bilateral. Vibratory sensation is decreased at the hallux IPJ bilateral. The hallux is downgoing bilateral. Derm: Nails 1-5 b/l are painful, discolored-yellow, thick, crumbly, dystrophic and with subungal debris. Skin is of normal turgor, texture and hair growth is present bilateral. There are minimal callus of right 5th toe. No ulcerations, scars, verruca or other lesions noted. Ortho: Muscle strength is 5/5 for all pedal groups tested. Ankle joint DF is decreased with the knee extended with no pain or crepitus noted. 1st MPJ ROM is decreased bilateral. Assessment: (B35.1) Onychomycosis (primary encounter diagnosis) (M79.675) Pain in toe of left foot (M79.674) Pain in toe of right foot Plan: Patient was seen and evaluated. Nails 1-5 bilateral were debrided in length and thickness. Small bleed to right 5th toe. Band aide applied. Discussed removal of left great toenail in the future. Patient is not interested. Small callus reduced to right 5th toe with dremmel. Patient to follow-up in 5 months Victoria Ashley DPM documented in this encounter [facility] 08-15-2024 Telephone encounter Note Noted. Adeel Hayes MD [facility] 08-15-2024 Miscellaneous Notes Noted. Adeel Hayes MD Spoke with pt, and given provider's message. Pt reports Thurs works good for her. Pt states Wed is probably not a good day. Pt hopes pcp lets her know when she is coming. Pt reports after the first of the year, she will have new insurance and the new insurance will cover the doctor there, Dr. Stack, but will not cover Dr. Hayes. Spoke with [facility] nurse, Corina, and asked about the items pt reported she would like to have in her room (OTC band aids, polysporin, tums, prep H, & tylenol 325 mg) Corina will check with facility to see if these items are ok, but states she knows for sure pt cannot have bandaids or polysporin because it's a skin issue, and they have to do skin reports. States pt has to tell them when she is having a skin issue. Corina will call back to let pcp know what she finds out. 1) Noted RE; request to be seen at [facility] (instead of coming to office). Will try to notify ahead of time. Verify if there are days of the week that she is usually not available. 2) Wonder if the wait for those things was due to not having all her admission orders right away when was admitted. In any case, can give order to [facility] that she may have band aids, polysporin, TUMS and PrepH in her room to use as needed per package directions. Clarify dose of Tylenol that she has that wants to dose self as needed and with [facility] if okay with order to self dispense Tylenol with an order as requested. Patient returns call and message reviewed. Patient requests that provider come to [facility] to visit and let her know ahead of time so she is available. Patient also asking for orders to be able to manage OTC treatments such as band aids, polysporin, Tums, preparation H, and tylenol specifically as it frustrating to have to wait for 2-3 days on nursing staff to provide. Daniela Gordon, MARGOT Left a message for pt to call the office and ask to speak to a nurse. Chelsi Osorio LPN Phoned patient and call was hung up on. Try again later. I wrote an order on fax from [facility] earlier today to change Miralax to once daily prn 1) Can follow with patient at [facility] and round there as her PCP. She can still come to the office if she prefers. I think I completed forms for [facility] admission. 2) Okay to change Miralax to as needed. Can give verbal order to [facility] so they can send formal order for me to sign unless they need a printed order. 1)Patient calling recently moved to assisted living at [facility]. She is asking if Dr Hayes makes rounds there and if she is still her PCP? 2)Patient asking to have her Miralax order changed from daily to as needed. She normally never takes it unless needed. She keeps refusing it, had taken the miralax 3 days in row and she said making issues with her stomach and bowels. New order needs to notify the nurses there. Please advise documented in this encounter [facility] 08-15-2024 Telephone encounter Note Spoke with pt, and given provider's message. Pt reports Thurs works good for her. Pt states Wed is probably not a good day. Pt hopes pcp lets her know when she is coming. Pt reports after the first of the year, she will have new insurance and the new insurance will cover the doctor there, Dr. Stack, but will not cover Dr. Hayes. Spoke with [facility] nurse, Corina, and asked about the items pt reported she would like to have in her room (OTC band aids, polysporin, tums, prep H, & tylenol 325 mg) Corina will check with facility to see if these items are ok, but states she knows for sure pt cannot have bandaids or polysporin because it's a skin issue, and they have to do skin reports. States pt has to tell them when she is having a skin issue. Corina will call back to let pcp know what she finds out. [facility] 08-13-2024 Telephone encounter Note 1) Noted RE; request to be seen at [facility] (instead of coming to office). Will try to notify ahead of time. Verify if there are days of the week that she is usually not available. 2) Wonder if the wait for those things was due to not having all her admission orders right away when was admitted. In any case, can give order to [facility] that she may have band aids, polysporin, TUMS and PrepH in her room to use as needed per package directions. Clarify dose of Tylenol that she has that wants to dose self as needed and with [facility] if okay with order to self dispense Tylenol with an order as requested. [facility] 08-13-2024 Telephone encounter Note Patient returns call and message reviewed. Patient requests that provider come to [facility] to visit and let her know ahead of time so she is available. Patient also asking for orders to be able to manage OTC treatments such as band aids, polysporin, Tums, preparation H, and tylenol specifically as it frustrating to have to wait for 2-3 days on nursing staff to provide. Daniela Gordon RN [facility] 08-13-2024 Telephone encounter Note Left a message for pt to call the office and ask to speak to a nurse. Chelsi Osorio LPN [facility] 08-13-2024 Telephone encounter Note Phoned patient and call was hung up on. Try again later. [facility] 08-12-2024 Telephone encounter Note I wrote an order on fax from [facility] earlier today to change Miralax to once daily prn [facility] 08-12-2024 Telephone encounter Note 1) Can follow with patient at [facility] and round there as her PCP. She can still come to the office if she prefers. I think I completed forms for [facility] admission. 2) Okay to change Miralax to as needed. Can give verbal order to [facility] so they can send formal order for me to sign unless they need a printed order. [facility] 08-11-2024 Telephone encounter Note 1)Patient calling recently moved to assisted living at [facility]. She is asking if Dr Hayes makes rounds there and if she is still her PCP? 2)Patient asking to have her Miralax order changed from daily to as needed. She normally never takes it unless needed. She keeps refusing it, had taken the miralax 3 days in row and she said making issues with her stomach and bowels. New order needs to notify the nurses there. Please advise [facility] 07-30-2024 Telephone encounter Note Attempted to contact Marva. Message was left asking her to return the call. Records that are currently available have been faxed to number listed below. [facility] 07-30-2024 Miscellaneous Notes Attempted to contact Marva. Message was left asking her to return the call. Records that are currently available have been faxed to number listed below. Please return call and let them know we could send an order however last office note from Adeel Hayes MD is not signed yet and we don't have an H&P but we do have a medicare wellness visit from May so would they accept that? Patient is scheduled with me on 08/04 so we can do an H&P then. Please check with them. Thanks. Kellie calling from [facility], she is requesting an order for admission to assisted living. Also asking when order is ready, to also fax face sheet, med list, H&P & ASHLEY to [phone]. Janet Frias LPN documented in this encounter [facility] 07-30-2024 Telephone encounter Note Please return call and let them know we could send an order however last office note from Adeel Hayes MD is not signed yet and we don't have an H&P but we do have a medicare wellness visit from May so would they accept that? Patient is scheduled with me on 08/04 so we can do an H&P then. Please check with them. Thanks. [facility] 07-30-2024 Telephone encounter Note Kellie calling from [facility], she is requesting an order for admission to assisted living. Also asking when order is ready, to also fax face sheet, med list, H&P & ASHLEY to [phone]. Janet Frias LPN [facility] 07-28-2024 Telephone encounter Note Noted, she is scheduled for an office visit next week, plan to discuss with the visit. [facility] 07-28-2024 Miscellaneous Notes Noted, she is scheduled for an office visit next week, plan to discuss with the visit. Patient calling was asking how much water should she be drinking all day. she takes her blood pressure medication at 11 am even though she gets up at 7 am. She said she was still voiding during the night. Advised her to take her blood pressure medication earlier in the morning when she wakes up. she said she drink liquid with each meal but only drinks not even 1800 ml cup during the day. she said she voids small amounts but not having any UTI symptoms. She said she would try to take her medication earlier and drink more during the day and cut down fluids in the evening. documented in this encounter [facility] 07-23-2024 Telephone encounter Note Patient calling was asking how much water should she be drinking all day. she takes her blood pressure medication at 11 am even though she gets up at 7 am. She said she was still voiding during the night. Advised her to take her blood pressure medication earlier in the morning when she wakes up. she said she drink liquid with each meal but only drinks not even 1800 ml cup during the day. she said she voids small amounts but not having any UTI symptoms. She said she would try to take her medication earlier and drink more during the day and cut down fluids in the evening. [facility] 07-22-2024 Telephone encounter Note Noted, she has an appointment coming up on 08/04 so we can discuss the medication then and make changes if appropriate. [facility] 07-22-2024 Miscellaneous Notes Noted, she has an appointment coming up on 08/04 so we can discuss the medication then and make changes if appropriate. Patient phoned to let pcp know, she saw Dr. Baugh today, to check her ears to see if her balance issues were related to inner ear. Doctor told her, her ears are ok, and to talk with her pcp about atenolol being a possible cause. Patient reports she has dizziness just before she falls. Reports if she turns her head she will feel dizzy sometimes. Reports her macular degeneration also affects her balance. Patient has a rolator walker (with seat and brakes) but her reflex is not quick enough to squeeze the brake in time to stop. Dr. Baugh advised her to use the old fashion walker as she can control that better. Asking pcp to advise on atenolol possibly being the cause. documented in this encounter [facility] 07-21-2024 Telephone encounter Note Sw spoke with patient regarding home care resources. Patient notedI am having a visitor soon and can't speak for too long. Sw asked about calling another time. Patient noted no, now is fine. Patient stated I have not checked with home care agencies. I will try and make calls when I am ready for home care assistance. Sw asked patient if she had any further needs. Patient stated no, not right now. Patient is aware that she may call Sw at any time for further assistance. [facility] 07-21-2024 Miscellaneous Notes Sw spoke with patient regarding home care resources. Patient notedI am having a visitor soon and can't speak for too long. Sw asked about calling another time. Patient noted no, now is fine. Patient stated I have not checked with home care agencies. I will try and make calls when I am ready for home care assistance. Sw asked patient if she had any further needs. Patient stated no, not right now. Patient is aware that she may call Sw at any time for further assistance. Sw called to follow up with patient regarding home care assistance noted below. No answer, Sw left message that SW will try call again beginning of next week 07/21 to check in with patient. Noted, follow up at upcoming visit Sw spoke with patient and reports that that she spoke with [facility] and was told they would cost $30 an hour. Sw and patient discussed [employer] [facility], [facility] and Sw provide that phone number to patient. Sw also provided patient with [facility] as an option for charge aide option. Sw provided patient with [facility] phone number to reach out to [place] office to check on [place] rates. Patient reports that she will call both [employer] [facility] and [facility] and obtain [place] quotes. Sw and patient discussed [place] [facility] and Passport program. Sw noted that Passport is a Medicaid eligible program through [facility]. Sw noted nurse or social service worker makes home visit from [facility] for assessments and to determine eligibility. Patient notes that she does not want to apply for Medicaid at this time. Sw noted that she would check in later on next week to see if patient made determination on home lighting adviser agency or needs more options to check on. Sw called patient to discuss in home care and senior care care questions. Patient notes that she is getting ready to go to an appt and asks this Sw to call her back tomorrow after 10am. Sw will try call to patient tomorrow after 10. documented in this encounter [facility] 07-18-2024 Telephone encounter Note Patient phoned to let pcp know, she saw Dr. Baugh today, to check her ears to see if her balance issues were related to inner ear. Doctor told her, her ears are ok, and to talk with her pcp about atenolol being a possible cause. Patient reports she has dizziness just before she falls. Reports if she turns her head she will feel dizzy sometimes. Reports her macular degeneration also affects her balance. Patient has a rolator walker (with seat and brakes) but her reflex is not quick enough to squeeze the brake in time to stop. Dr. Baugh advised her to use the old fashion walker as she can control that better. Asking pcp to advise on atenolol possibly being the cause. [facility] 07-17-2024 Telephone encounter Note Sw called to follow up with patient regarding home care assistance noted below. No answer, Sw left message that SW will try call again beginning of next week 07/21 to check in with patient. [facility] 07-16-2024 Telephone encounter Note Patient calling to state after receiving home care instructions related to constipation earlier today, she was able to successfully have a bowel movement. Patient advised to contact PCP office for any further concerns or questions. Meredith Varela RN [facility] 07-16-2024 Miscellaneous Notes Patient calling to state after receiving home care instructions related to constipation earlier today, she was able to successfully have a bowel movement. Patient advised to contact PCP office for any further concerns or questions. Meredith Varela RN documented in this encounter [facility] 07-14-2024 Telephone encounter Note Spoke with patient and she will go back on the Doxepin 10 mg she stated that insurance would not cover the 6 mg dosing due to cost. She was unsure why that was the case. Does not want a new script sent to pharmacy. States she still has plenty left from last fill. [facility] 07-14-2024 Miscellaneous Notes Spoke with patient and she will go back on the Doxepin 10 mg she stated that insurance would not cover the 6 mg dosing due to cost. She was unsure why that was the case. Does not want a new script sent to pharmacy. States she still has plenty left from last fill. Okay to go back to the doxepin, med list updated, we can have her try the 6 mg dose of doxepin if still having falls at night secondary to this medication. Patient reports Destini ordered zoloft for her, and she has taken 4 doses. It puts her into a deep sleep, but wakes up at 2:30 am and unable to go back to sleep. Doxepin was d/c'd when zoloft was ordered. Prefers to take doxepin, although it made her feel too drouggy when woke up in the morning. Patient prefers the drouggy feeling over waking up at 2:30 am and unable to go back to sleep. Reports she falls easily due to macular degeneration and vertigo and waking up at 2:30 am and unable to go back to sleep puts her at risk for falls. Reports she is seeing ENT on Sunday due to balance. Please advise and phone patient with reply: [phone] documented in this encounter [facility] 07-14-2024 Telephone encounter Note Okay to go back to the doxepin, med list updated, we can have her try the 6 mg dose of doxepin if still having falls at night secondary to this medication. [facility] 07-14-2024 Telephone encounter Note Patient reports Destini ordered zoloft for her, and she has taken 4 doses. It puts her into a deep sleep, but wakes up at 2:30 am and unable to go back to sleep. Doxepin was d/c'd when zoloft was ordered. Prefers to take doxepin, although it made her feel too drouggy when woke up in the morning. Patient prefers the drouggy feeling over waking up at 2:30 am and unable to go back to sleep. Reports she falls easily due to macular degeneration and vertigo and waking up at 2:30 am and unable to go back to sleep puts her at risk for falls. Reports she is seeing ENT on Sunday due to balance. Please advise and phone patient with reply: [phone] [facility] 07-12-2024 Telephone encounter Note Patient calling with concerns that first dose of Zoloft caused sleeplessness last night. States her pcp just changed her medications and was concerned it caused difficulty sleeping. Discussed side effects of Zoloft per [email or web address] which does not include sleeplessness. Encouraged her to continue with medication as ordered and f/u with the office on Sunday. Patient denies any new or worsening symptoms of which a provider is not aware: Yes. [facility] 07-12-2024 Miscellaneous Notes Patient calling with concerns that first dose of Zoloft caused sleeplessness last night. States her pcp just changed her medications and was concerned it caused difficulty sleeping. Discussed side effects of Zoloft per [email or web address] which does not include sleeplessness. Encouraged her to continue with medication as ordered and f/u with the office on Sunday. Patient denies any new or worsening symptoms of which a provider is not aware: Yes. documented in this encounter [facility] 07-11-2024 Telephone encounter Note See the other encounter regarding this. [facility] 07-11-2024 Miscellaneous Notes See the other encounter regarding this. Called pt to review. She declines to try a formulary medicine. She is reluctant to start a new medicine. She will continue the doxepin 10mg She then reports she never started the zoloft from 06/23/24 when she saw Destini. She is asking if she should start this? Electronic PA rec'd and completed for doxepin 6mg. This was reviewed and denied. Patient Name: Dodie Li Patient : 1945 Status of Request: Deny Medication Name: Doxepin Tab 6mg [facility]: [id number] Decision Notes: DOXEPIN TAB 6MG is denied because it is not on your plan's Drug List (formulary). Medication authorization requires the following: (1) You need to try three (3) of these covered drugs: (a) Quviviq. (b) Ramelteon. (c) Trazodone. (2) OR your doctor needs to give us specific medical reasons why three (3) of the covered drug(s) are not appropriate for you. Reviewed by: yousif, R.Ph. documented in this encounter [facility] 07-11-2024 Telephone encounter Note Noted, follow up at upcoming visit [facility] 07-11-2024 Telephone encounter Note Sw spoke with patient and reports that that she spoke with [facility] and was told they would cost $30 an hour. Sw and patient discussed [employer] [facility], [facility] and Sw provide that phone number to patient. Sw also provided patient with [facility] as an option for charge aide option. Sw provided patient with [facility] phone number to reach out to [place] office to check on [place] rates. Patient reports that she will call both [employer] [facility] and [facility] and obtain [place] quotes. Sw and patient discussed [facility] on Aging and Passport program. Sw noted that Passport is a Medicaid eligible program through [facility]. Sw noted nurse or social service worker makes home visit from [facility] for assessments and to determine eligibility. Patient notes that she does not want to apply for Medicaid at this time. Sw noted that she would check in later on next week to see if patient made determination on home lighting adviser agency or needs more options to check on. [facility] 07-11-2024 Telephone encounter Note PATIENT NOTIFIED OF SAME. [facility] 07-11-2024 Miscellaneous Notes PATIENT NOTIFIED OF SAME. We had discussed with her visit that the goal is to reduce her falls at night time, it seems the doxepin is contributing to this. I would like her to stop the doxepin and start Zoloft as this should not cause as much tiredness/drowsiness as the doxepin does. Patient phoned asking if she should take the doxepin and zoloft at the same time? Noted in Destini's notes doxepin was discontinued and patient was to take zoloft instead. Patient states she cannot see well and couldn't read her after visit instructions and wasn't aware Destini discontinued her doxepin. Reports doxepin makes her really sleepy, and wondered if zoloft can make her sleepy also. Advised zoloft can make her feel sleepy. Patient states she doesn't drive, but she is worried about falling. Reports she's been taking the doxepin, and hasn't started the zoloft yet. States she will wait for reply from Destini or Dr. Hayes before she starts the zoloft. Patient plans to take the doxepin tonight and not the zoloft. Patient aware Destini and are not in office today. Please advise and phone patient with reply. documented in this encounter [facility] 07-11-2024 Telephone encounter Note We had discussed with her visit that the goal is to reduce her falls at night time, it seems the doxepin is contributing to this. I would like her to stop the doxepin and start Zoloft as this should not cause as much tiredness/drowsiness as the doxepin does. [facility] 07-10-2024 Note HNO ID: [id number] Author: ADEEL HAYES MD Service: ? Author Type: Physician Type: Progress Notes Filed: 07/10/2024 23:58 Note Text: Dodie Li is a 78 year old female here for a Medicare wellness visit. Medicare Health Risk Assessment General Health Fair Exercise: Minutes/Day 0 min Exercise: Days/Week 0 days Alcohol: Daily Use Never Alcohol: Drinks/Day Patient does not drink Alcohol: 6 or more drinks Never Feel off balance Yes Concerns: Teeth/Dentures No Concerns: Sexual function No Troubled by feelings None of the above Frequency: Eating healthy diet Nearly every day ADLs requiring help None of the above Safety precautions in home/vehicle Yes Smoke, vape, chews tobacco No Difficulty hearing Yes Difficulty seeing Yes Current Providers Specialists: I have reviewed specialist-related care of the patient in the medical record. Outside specialists seen: Dr. Lal (Retinal specialist), Sapphire Olivares (did hip surgery), Dr. Debra Silva (ophthalmology), Dr. Denny Briseno (pulmonary physical therapist) Medical/Family history review Reviewed and updated problem list, medical/surgical/family/social history, medications, and allergies. Opioid use review Opioid Medications (last 90 days) No data to display Anxiety/Depression screening PHQ-2 Score: 0 (Lower risk for depression) Recommendation: no further intervention at this time Cognitive screening Mini Cog Score: 5 Cognitive screening reviewed and No further action needed (score 3-5). Functional Observation Was the patient's Timed Up AND Go test unsteady or >= 12 seconds? Does stand up without cane but has to take small steps to maintain balance Advance Care Planning Surrogate decision maker and/or advance care plan documented Measurements BP 128/82 Pulse 68 Temp 36.5 ?C (97.7 ?F) Resp 16 Ht 148.5 cm (4' 10.47) Wt 79.5 kg (175 lb 4.3 oz) SpO2 98% BMI 36.05 kg/m? Vision Screening: Follows with optometry/ophthalmology Assessment/Plan Medicare annual wellness visit, subsequent (Z00.00) - Counseled on healthy diet and regular exercise - Fall avoidance information provided - Personalized prevention plan provided Additional Concerns The following concerns were also discussed with the patient: Patient is a 78-year-old female presenting for a wellness visit. Patient has a history of right hip replacement and bilateral wrist surgeries, with the left wrist surgery performed in [place] and the right wrist surgery in [place]. She reports occasional pain in her wrists, particularly when lifting heavy objects, and notes a history of her wrist locking in the past. She also experiences balance issues, especially when carrying heavy items or opening heavy doors, and mentions a recent incident where lifting a six-pack of water irritated her wrist. Patient has been lax in performing her physical therapy exercises at homebut plans to resume them to improve her balance and strength. Patient is currently taking doxepin 10 mg at bedtime for sleep, which she finds effective without causing grogginess. She was previously prescribed sertraline but discontinued it due to excessive drowsiness. She also takes gemfibrozil 600 mg twice daily, potassium chloride 10 mEq daily, and omeprazole 20 mg daily. She supplements with PreserVision, lutein, vitamin C, Caltrate, B-complex with vitamin C, calcium, zinc, fish oil, and vitamin E 400 IU daily. She uses a stool softener as needed. Patient follows up with Dr. Lal, a retinal specialist, for eye care and has seen Dr. Aletha Silva and Dr. Denny Briseno for routine eye exams. She does not have any siblings and relies on friends for transportation, as she does not drive much. She expresses feelings of loneliness and isolation, particularly due to a friend becoming less available and the absence of nearby family. She has considered using [employer] transportation services but is unsure of their availability. She also mentions difficulty navigating certain environments, such as gravel surfaces, which further limits her mobility. PHYSICAL EXAM BP 128/82 Pulse 68 Temp 36.5 ?C (97.7 ?F) Resp 16 Ht 148.5 cm (4' 10.47) Wt 79.5 kg (175 lb 4.3 oz) SpO2 98% BMI 36.05 kg/m? GENERAL: well appearing, alert, in no acute distress and ambulates with cane CARDIOVASCULAR: regular rate and rhythm. No murmur, rubs or gallops. PULMONARY: clear to auscultation, no wheezing, rhonchi, or crackles ABDOMEN: soft, non-tender, non-distended, no masses or organomegaly EXTREMITY: no lower extremity edema. No skin discoloration. Medicare annual wellness visit, subsequent: - Conducted comprehensive wellness examination as required by [facility]. - Reviewed and updated patient's medication list, including vitamins and supplements. - Discussed the importance of regular physical activity and exercises to maintain muscle strength and balance. - Educated patient on the be (more content not included)... [facility] 07-10-2024 History of Present illness Narrative Images from the original note were not included. Dodie Li is a 78 year old female here for a Medicare wellness visit. Medicare Health Risk Assessment General Health Fair Exercise: Minutes/Day 0 min Exercise: Days/Week 0 days Alcohol: Daily Use Never Alcohol: Drinks/Day Patient does not drink Alcohol: 6 or more drinks Never Feel off balance Yes Concerns: Teeth/Dentures No Concerns: Sexual function No Troubled by feelings None of the above Frequency: Eating healthy diet Nearly every day ADLs requiring help None of the above Safety precautions in home/vehicle Yes Smoke, vape, chews tobacco No Difficulty hearing Yes Difficulty seeing Yes Current Providers Specialists: I have reviewed specialist-related care of the patient in the medical record. Outside specialists seen: Dr. Lal (Retinal specialist), Sapphire Olivares (did hip surgery), Dr. Debra Silva (ophthalmology), Dr. Denny Briseno (pulmonary physical therapist) Medical/Family history review Reviewed and updated problem list, medical/surgical/family/social history, medications, and allergies. Opioid use review Opioid Medications (last 90 days) No data to display Anxiety/Depression screening PHQ-2 Score: 0 (Lower risk for depression) Recommendation: no further intervention at this time Cognitive screening Mini Cog Score: 5 Cognitive screening reviewed and No further action needed (score 3-5). Functional Observation Was the patient's Timed Up & Go test unsteady or >= 12 seconds? Does stand up without cane but has to take small steps to maintain balance Advance Care Planning Surrogate decision maker and/or advance care plan documented Measurements BP 128/82 Pulse 68 Temp 36.5 C (97.7 F) Resp 16 Ht 148.5 cm (4' 10.47) Wt 79.5 kg (175 lb 4.3 oz) SpO2 98% BMI 36.05 kg/m Vision Screening: Follows with optometry/ophthalmology Assessment/Plan Medicare annual wellness visit, subsequent (Z00.00) - Counseled on healthy diet and regular exercise - Fall avoidance information provided - Personalized prevention plan provided Additional Concerns The following concerns were also discussed with the patient: Patient is a 78-year-old female presenting for a wellness visit. Patient has a history of right hip replacement and bilateral wrist surgeries, with the left wrist surgery performed in [place] and the right wrist surgery in [place]. She reports occasional pain in her wrists, particularly when lifting heavy objects, and notes a history of her wrist locking in the past. She also experiences balance issues, especially when carrying heavy items or opening heavy doors, and mentions a recent incident where lifting a six-pack of water irritated her wrist. Patient has been lax in performing her physical therapy exercises at home but plans to resume them to improve her balance and strength. Patient is currently taking doxepin 10 mg at bedtime for sleep, which she finds effective without causing grogginess. She was previously prescribed sertraline but discontinued it due to excessive drowsiness. She also takes gemfibrozil 600 mg twice daily, potassium chloride 10 mEq daily, and omeprazole 20 mg daily. She supplements with PreserVision, lutein, vitamin C, Caltrate, B-complex with vitamin C, calcium, zinc, fish oil, and vitamin E 400 IU daily. She uses a stool softener as needed. Patient follows up with Dr. Lal, a retinal specialist, for eye care and has seen Dr. Aletha Silva and Dr. Denny Briseno for routine eye exams. She does not have any siblings and relies on friends for transportation, as she does not drive much. She expresses feelings of loneliness and isolation, particularly due to a friend becoming less available and the absence of nearby family. She has considered using [employer] transportation services but is unsure of their availability. She also mentions difficulty navigating certain environments, such as gravel surfaces, which further limits her mobility. PHYSICAL EXAM BP 128/82 Pulse 68 Temp 36.5 C (97.7 F) Resp 16 Ht 148.5 cm (4' 10.47) Wt 79.5 kg (175 lb 4.3 oz) SpO2 98% BMI 36.05 kg/m GENERAL: well appearing, alert, in no acute distress and ambulates with cane CARDIOVASCULAR: regular rate and rhythm. No murmur, rubs or gallops. PULMONARY: clear to auscultation, no wheezing, rhonchi, or crackles ABDOMEN: soft, non-tender, non-distended, no masses or organomegaly EXTREMITY: no lower extremity edema. No skin discoloration. Medicare annual wellness visit, subsequent: - Conducted comprehensive wellness examination as required by [facility]. - Reviewed and updated patient's medication list, including vitamins and supplements. - Discussed the importance of regular physical activity and exercises to maintain muscle strength and balance. - Educated patient on the benefits of continuing physical therapy exercises at home to improve balance and prevent falls. - Advised patient to avoid lifting heavy objects and to use assistive devices as needed to prevent strain and injury. - Patient understands and agrees with the treatment plan. Gait instability: - Patient reports occasional imbalance, especially when lifting heavy objects or walking on uneven surfaces such as gravel. - Advised patient to continue home exercises to strengthen muscles and improve balance, including grease man exercises, soup can exercises, and walking with weights. - Recommended use of a cane for additional support and stability. - Discussed the option of home physical therapy if balance issues persist. - Patient educated on the importance of avoiding uneven surfaces and using assistive devices to prevent falls. - Patient understands and agrees with the treatment plan. Essential hypertension: - Chronic, stable condition. - Patient currently on Atenolol and Chlorthalidone, both with refills until April. - Advised patient to continue current medication regimen and monitor blood pressure regularly. - No changes to current treatment plan as blood pressure is well-controlled. Hypokalemia: - Patient currently taking potassium supplement 10 mEq once daily. - Last potassium level in March was within normal range. - Advised patient to continue current potassium supplementation. - Will monitor potassium levels at next follow-up appointment. Hypertriglyceridemia: - Chronic, stable condition. - Patient currently on Gemfibrozil 600 mg twice daily. - Advised patient to continue current medication regimen. - Will monitor lipid levels at next follow-up appointment. Adeel Hayes MD Images from the original note were not included. Dodie Li is a 78 year old female here for a Medicare wellness visit. Medicare Health Risk Assessment General Health Fair Exercise: Minutes/Day 0 min Exercise: Days/Week 0 days Alcohol: Daily Use Never Alcohol: Drinks/Day Patient does not drink Alcohol: 6 or more drinks Never Feel off balance Yes Concerns: Teeth/Dentures No Concerns: Sexual function No Troubled by feelings None of the above Frequency: Eating healthy diet Nearly every day ADLs requiring help None of the above Safety precautions in home/vehicle Yes Smoke, vape, chews tobacco No Difficulty hearing Yes Difficulty seeing Yes Current Providers Specialists: I have reviewed specialist-related care of the patient in the medical record. Outside specialists seen: Dr. Lal (Retinal specialist), Sapphire Olivares (did hip surgery), Dr. Debra Silva (ophthalmology), Dr. Denny Briseno (pulmonary physical therapist) Medical/Family history review Reviewed and updated problem list, medical/surgical/family/social history, medications, and allergies. Opioid use review Opioid Medications (last 90 days) No data to display Anxiety/Depression screening PHQ-2 Score: 0 (Lower risk for depression) Recommendation: no further intervention at this time Cognitive screening Mini Cog Score: 5 Cognitive screening reviewed and No further action needed (score 3-5). Functional Observation Was the patient's Timed Up & Go test unsteady or >= 12 seconds? Does stand up without cane but has to take small steps to maintain balance Advance Care Planning Surrogate decision maker and/or advance care plan documented Measurements BP 128/82 Pulse 68 Temp 36.5 C (97.7 F) Resp 16 Ht 148.5 cm (4' 10.47) Wt 79.5 kg (175 lb 4.3 oz) SpO2 98% BMI 36.05 kg/m Vision Screening: Follows with optometry/ophthalmology Assessment/Plan Medicare annual wellness visit, subsequent (Z00.00) - Counseled on healthy diet and regular exercise - Fall avoidance information provided - Personalized prevention plan provided Additional Concerns The following concerns were also discussed with the patient: Patient is a 78-year-old female presenting for a wellness visit. Patient has a history of right hip replacement and bilateral wrist surgeries, with the left wrist surgery performed in [place] and the right wrist surgery in [place]. She reports occasional pain in her wrists, particularly when lifting heavy objects, and notes a history of her wrist locking in the past. She also experiences balance issues, especially when carrying heavy items or opening heavy doors, and mentions a recent incident where lifting a six-pack of water irritated her wrist. Patient has been lax in performing her physical therapy exercises at home but plans to resume them to improve her balance and strength. Patient is currently taking doxepin 10 mg at bedtime for sleep, which she finds effective without causing grogginess. She was previously prescribed sertraline but discontinued it due to excessive drowsiness. She also takes gemfibrozil 600 mg twice daily, potassium chloride 10 mEq daily, and omeprazole 20 mg daily. She supplements with PreserVision, lutein, vitamin C, Caltrate, B-complex with vitamin C, calcium, zinc, fish oil, and vitamin E 400 IU daily. She uses a stool softener as needed. Patient follows up with Dr. Lal, a retinal specialist, for eye care and has seen Dr. Aletha Silva and Dr. Denny Briseno for routine eye exams. She does not have any siblings and relies on friends for transportation, as she does not drive much. She expresses feelings of loneliness and isolation, particularly due to a friend becoming less available and the absence of nearby family. She has considered using [employer] transportation services but is unsure of their availability. She also mentions difficulty navigating certain environments, such as gravel surfaces, which further limits her mobility. PHYSICAL EXAM BP 128/82 Pulse 68 Temp 36.5 C (97.7 F) Resp 16 Ht 148.5 cm (4' 10.47) Wt 79.5 kg (175 lb 4.3 oz) SpO2 98% BMI 36.05 kg/m GENERAL: well appearing, alert, in no acute distress and ambulates with cane CARDIOVASCULAR: regular rate and rhythm. No murmur, rubs or gallops. PULMONARY: clear to auscultation, no wheezing, rhonchi, or crackles ABDOMEN: soft, non-tender, non-distended, no masses or organomegaly EXTREMITY: no lower extremity edema. No skin discoloration. Medicare annual wellness visit, subsequent: - Conducted comprehensive wellness examination as required by [facility]. - Reviewed and updated patient's medication list, including vitamins and supplements. - Discussed the importance of regular physical activity and exercises to maintain muscle strength and balance. - Educated patient on the benefits of continuing physical therapy exercises at home to improve balance and prevent falls. - Advised patient to avoid lifting heavy objects and to use assistive devices as needed to prevent strain and injury. - Patient understands and agrees with the treatment plan. Gait instability: - Patient reports occasional imbalance, especially when lifting heavy objects or walking on uneven surfaces such as gravel. - Advised patient to continue home exercises to strengthen muscles and improve balance, including grease man exercises, soup can exercises, and walking with weights. - Recommended use of a cane for additional support and stability. - Discussed the option of home physical therapy if balance issues persist. - Patient educated on the importance of avoiding uneven surfaces and using assistive devices to prevent falls. - Patient understands and agrees with the treatment plan. Essential hypertension: - Chronic, stable condition. - Patient currently on Atenolol and Chlorthalidone, both with refills until April. - Advised patient to continue current medication regimen and monitor blood pressure regularly. - No changes to current treatment plan as blood pressure is well-controlled. Hypokalemia: - Patient currently taking potassium supplement 10 mEq once daily. - Last potassium level in March was within normal range. - Advised patient to continue current potassium supplementation. - Will monitor potassium levels at next follow-up appointment. Hypertriglyceridemia: - Chronic, stable condition. - Patient currently on Gemfibrozil 600 mg twice daily. - Advised patient to continue current medication regimen. - Will monitor lipid levels at next follow-up appointment. Adeel Hayes MD documented in this encounter [facility] 07-10-2024 Telephone encounter Note Patient phoned asking if she should take the doxepin and zoloft at the same time? Noted in Destini's notes doxepin was discontinued and patient was to take zoloft instead. Patient states she cannot see well and couldn't read her after visit instructions and wasn't aware Destini discontinued her doxepin. Reports doxepin makes her really sleepy, and wondered if zoloft can make her sleepy also. Advised zoloft can make her feel sleepy. Patient states she doesn't drive, but she is worried about falling. Reports she's been taking the doxepin, and hasn't started the zoloft yet. States she will wait for reply from [facility] or Dr. Hayes before she starts the zoloft. Patient plans to take the doxepin tonight and not the zoloft. Patient aware Destini and doctor are not in office today. Please advise and phone patient with reply. 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 Patient notes that she is getting ready to go to an appt and asks this Sw to call her back tomorrow after 10am. Sw will try call to patient tomorrow after 10. T [facility] 07-10-2024 Telephone encounter Note Called pt to review. She declines to try a formulary medicine. She is reluctant to start a new medicine. She will continue the doxepin 10mg She then reports she never started the zoloft from 06/23/24 when she saw Destini. She is asking if she should start this? [facility] 07-10-2024 Telephone encounter Note Electronic PA rec'd and completed for doxepin 6mg. This was reviewed and denied. Patient Name: Dodie Li Patient : 1945 Status of Request: Deny Medication Name: Doxepin Tab 6mg [facility]: [id number] Decision Notes: DOXEPIN TAB 6MG is denied because it is not on your plan's Drug List (formulary). Medication authorization requires the following: (1) You need to try three (3) of these covered drugs: (a) Quviviq. (b) Ramelteon. (c) Trazodone. (2) OR your doctor needs to give us specific medical reasons why three (3) of the covered drug(s) are not appropriate for you. Reviewed by: yousif, R.Ph. [facility] 07-09-2024 Instructions Adeel Hayes MD - 07/09/2024 3:37 PM EDT -Continue using your cane or walker for stability, especially when turning or changing positions. - Perform movements slowly and deliberately to prevent falls, particularly when turning or standing up. - Consult with your physical therapist about incorporating vestibular exercises to help with balance and vertigo. - Consult with your eye doctor about options for managing your vision impairment. - Contact a social service worker to discuss options for home health services and assisted living. - We will switch you to a lower dose of doxepin (6 mg) to see if it helps reduce the hangover effect you experience the next day. Check with your pharmacy to see if it is covered by your insurance. - We will discontinue chlorthalidone and switch you to plain atenolol (50 mg) for blood pressure control. This change should help reduce the frequency of urination and may also help with dizziness. - Monitor your blood pressure at home or have it checked by a healthcare professional. - Stay hydrated by drinking water throughout the day, but consider reducing fluid intake in the evening to minimize nighttime bathroom trips. - Consider using audio books or other audio-based entertainment if reading becomes too difficult due to vision impairment. documented in this encounter [facility] 07-09-2024 Note HNO ID: [id number] Author: ADEEL HAYES MD Service: ? Author Type: Physician Type: Progress Notes Filed: 08/18/2024 23:37 Note Text: This note was created using [employer]. Subjective Dodie Li is a 78 year old female. Patient presents with: Same Day Appointment: Balance issues SUBJECTIVE: Dodie Li is a 78 year old year old lady here today for same day follow up appointment for review of medical conditions. The patient is a 78-year-old female with a history of balance issues, presenting for evaluation of worsening balance and vision problems. The patient reports a decline in balance over the past month, accompanied by worsening vision, particularly in the right eye, which was previously her good eye. She describes the vision as distorted and notes that she can no longer see clearly out of the corner of her eye. She has experienced a crackling sensation in her ears and requests an otoscopic examination. She reports experiencing vertigo, describing a spinning sensation that occurs when she turns her head too quickly. This has led to multiple falls, with 3-4 incidents in the past month. The most recent fall occurred last Sunday when she was moving water to the sink and turned too quickly, resulting in a fall. She was not using her cane at the time and had just come out of the shower. She activated her medical alert system, and voyage management system operator responded, having to unlock the door to assist her. She denies loss of consciousness during these falls but describes the sensation as almost like somebody pushes me and it's, then it's over. I'm on the floor. She denies significant arthritis pain in her knees or hips but notes occasional discomfort if she stands for prolonged periods. She uses a cane and an old-fashioned walker with skids for mobility, having discontinued use of a rollator due to concerns about its speed on her slanted kitchen floor. She has not discussed her balance issues with her physical therapist, who visits her at home and focuses on seated exercises and leg kicks. The patient also reports persistent fatigue, stating, every time when I wake up, I'm still not awake. It's like I am so tired. She is currently taking 10 mg of doxepin for sleep but expresses a desire to reduce the dosage due to a hangover effect in the morning. She denies trying Zoloft, stating she was afraid it would make her more loopy and then I would fall again. She reports waking up 3-4 times per night and frequently moving between her couch, chair, and lift chair to find a comfortable sleeping position. She expresses frustration and depression due to her declining health and increasing isolation, stating, I'm just a mess, and I'm getting more depressed all the time because I don't know how to deal with this. And I'm by myself. She has limited family support, with only cousins nearby who assist with writing checks and paying bills. She has no close friends and is concerned about her ability to live independently as her vision worsens. She is currently working with an eye doctor but is unable to afford a recommended treatment costing $5,000, which is not covered by her insurance. She expresses fear about the future, stating, I'm scared. I don't want to keep falling. She inquires about options for assisted living and home health services, noting that she has heard about services costing $30 per hour. She is concerned about the financial implications of assisted living, stating, I guess I'm not going to have any choice, really. She expresses a desire to stay at home but acknowledges the challenges of doing so without additional support. PAST MEDICAL HISTORY Diagnosis Date Carpal tunnel syndrome Depressive disorder, not elsewhere classified Esophageal reflux Macular degeneration (senile) of retina, unspecified Myalgia and myositis, unspecified Obesity, unspecified Unspecified essential hypertension Current Outpatient Medications Medication Sig sertraline (ZOLOFT) 25 mg tablet Take 1 tablet by mouth daily at bedtime. vit C/E/Zn/coppr/lutein/zeaxan (PRESERVISION AREDS-2 ORAL) Take 1 tablet by mouth once daily. omeprazole (PRILOSEC) 20 mg capsule Take 1 capsule by mouth once daily. OAT BRAN ORAL Take 2 tablets by mouth once daily. Atenolol-Chlorthalidone 100-25 mg per tablet TAKE 1/2 TABLET ONE TIME DAILY potassium chloride ER (KLOR-CON M10) 10 mEq tablet Take 1 tablet by mouth once daily. gemfibrozil (LOPID) 600 mg tablet Take 1 tablet by mouth two times a day. calcium carbonate (CALTRATE 600 ORAL) Take 1 tablet by mouth once daily. docusate sodium (STOOL SOFTENER ORAL) Take 2 capsules by mouth daily at bedtime. VITAMIN E ACETATE ORAL Take 1 capsule by mouth once daily. Ascorbic Acid-Collagen (COLLAGEN PLUS VITAMIN C) 125-740 mg cap Take 1 capsule by mouth once daily. cyanocobalamin (VITAMIN B-12) 1,000 mcg tab Take 1,000 mcg by mouth once daily (more content not included)... [facility] 07-09-2024 History of Present illness Narrative This note was created using [employer]. Subjective Dodie Li is a 78 year old female. Patient presents with: Same Day Appointment: Balance issues SUBJECTIVE: Dodie Li is a 78 year old year old lady here today for same day follow up appointment for review of medical conditions. The patient is a 78-year-old female with a history of balance issues, presenting for evaluation of worsening balance and vision problems. The patient reports a decline in balance over the past month, accompanied by worsening vision, particularly in the right eye, which was previously her good eye. She describes the vision as distorted and notes that she can no longer see clearly out of the corner of her eye. She has experienced a crackling sensation in her ears and requests an otoscopic examination. She reports experiencing vertigo, describing a spinning sensation that occurs when she turns her head too quickly. This has led to multiple falls, with 3-4 incidents in the past month. The most recent fall occurred last Sunday when she was moving water to the sink and turned too quickly, resulting in a fall. She was not using her cane at the time and had just come out of the shower. She activated her medical alert system, and voyage management system operator responded, having to unlock the door to assist her. She denies loss of consciousness during these falls but describes the sensation as almost like somebody pushes me and it's, then it's over. I'm on the floor. She denies significant arthritis pain in her knees or hips but notes occasional discomfort if she stands for prolonged periods. She uses a cane and an old-fashioned walker with skids for mobility, having discontinued use of a rollator due to concerns about its speed on her slanted kitchen floor. She has not discussed her balance issues with her physical therapist, who visits her at home and focuses on seated exercises and leg kicks. The patient also reports persistent fatigue, stating, every time when I wake up, I'm still not awake. It's like I am so tired. She is currently taking 10 mg of doxepin for sleep but expresses a desire to reduce the dosage due to a hangover effect in the morning. She denies trying Zoloft, stating she was afraid it would make her more loopy and then I would fall again. She reports waking up 3-4 times per night and frequently moving between her couch, chair, and lift chair to find a comfortable sleeping position. She expresses frustration and depression due to her declining health and increasing isolation, stating, I'm just a mess, and I'm getting more depressed all the time because I don't know how to deal with this. And I'm by myself. She has limited family support, with only cousins nearby who assist with writing checks and paying bills. She has no close friends and is concerned about her ability to live independently as her vision worsens. She is currently working with an eye doctor but is unable to afford a recommended treatment costing $5,000, which is not covered by her insurance. She expresses fear about the future, stating, I'm scared. I don't want to keep falling. She inquires about options for assisted living and home health services, noting that she has heard about services costing $30 per hour. She is concerned about the financial implications of assisted living, stating, I guess I'm not going to have any choice, really. She expresses a desire to stay at home but acknowledges the challenges of doing so without additional support. PAST MEDICAL HISTORY Diagnosis Date Carpal tunnel syndrome Depressive disorder, not elsewhere classified Esophageal reflux Macular degeneration (senile) of retina, unspecified Myalgia and myositis, unspecified Obesity, unspecified Unspecified essential hypertension Current Outpatient Medications Medication Sig sertraline (ZOLOFT) 25 mg tablet Take 1 tablet by mouth daily at bedtime. vit C/E/Zn/coppr/lutein/zeaxan (PRESERVISION AREDS-2 ORAL) Take 1 tablet by mouth once daily. omeprazole (PRILOSEC) 20 mg capsule Take 1 capsule by mouth once daily. OAT BRAN ORAL Take 2 tablets by mouth once daily. Atenolol-Chlorthalidone 100-25 mg per tablet TAKE 1/2 TABLET ONE TIME DAILY potassium chloride ER (KLOR-CON M10) 10 mEq tablet Take 1 tablet by mouth once daily. gemfibrozil (LOPID) 600 mg tablet Take 1 tablet by mouth two times a day. calcium carbonate (CALTRATE 600 ORAL) Take 1 tablet by mouth once daily. docusate sodium (STOOL SOFTENER ORAL) Take 2 capsules by mouth daily at bedtime. VITAMIN E ACETATE ORAL Take 1 capsule by mouth once daily. Ascorbic Acid-Collagen (COLLAGEN PLUS VITAMIN C) 125-740 mg cap Take 1 capsule by mouth once daily. cyanocobalamin (VITAMIN B-12) 1,000 mcg tab Take 1,000 mcg by mouth once daily. PVCSEEK-TCETCTTUL-HZQX ORAL Take 1 tablet by mouth once daily. guaifenesin/dextromethorphan (MUCINEX DM ORAL) Take 1 tablet by mouth once daily as needed. fexofenadine (LETICIA) 60 mg tablet Take 60 mg by mouth once daily as needed. polyethylene glycol 3350 (MIRALAX) 17 gram/dose powder Take 17 g by mouth once daily. aspirin, enteric coated (ASPIRIN, ENTERIC COATED) 81 mg EC tablet Take 81 mg by mouth once daily. cholecalciferol(VITAMIN D 2,000 UNIT CAP) Take by mouth. OMEGA 3 550 MG CAP Take one(1) tablet daily. CALCIUM + D 600 MG-200 UNIT ORAL TAB Take by mouth. (Patient not taking: Reported on 11/30/2023) TYLENOL EXTRA STRENGTH 500 MG ORAL TAB Take two(2) tablets every four(4) to six(6) hours as needed. No current facility-administered medications for this visit. Review of Systems Objective BP 118/68 Pulse 67 Temp 36.9 C (98.5 F) Resp 16 Wt 79.8 kg (175 lb 14.8 oz) SpO2 99% BMI 36.19 kg/m Physical Exam Constitutional: Appearance: Normal appearance. HENT: Head: Normocephalic. Eyes: Conjunctiva/sclera: Conjunctivae normal. Cardiovascular: Rate and Rhythm: Normal rate and regular rhythm. Heart sounds: Normal heart sounds. Pulmonary: Effort: Pulmonary effort is normal. Breath sounds: Normal breath sounds. Musculoskeletal: Right lower leg: No edema. Left lower leg: No edema. Skin: General: Skin is warm and dry. Neurological: General: No focal deficit present. Mental Status: She is alert and oriented to person, place, and time. Motor: Weakness present. Psychiatric: Attention and Perception: Attention normal. Mood and Affect: Mood is anxious and depressed. Speech: Speech normal. Behavior: Behavior normal. Thought Content: Thought content normal. Judgment: Judgment normal. Assessment and Plan # Balance problem (R26.89) # Frequent falls (R29.6) # Benign paroxysmal positional vertigo, unspecified laterality (H81.10) - Experiencing balance issues, frequent falls, and vertigo, particularly when turning quickly. - Otoscopic examination revealed no fluid, bubbles, or excessive cerumen in either ear. - Educated on the importance of slow movements and using a cane or hand support when changing positions or turning to prevent falls. - Advised to continue working with physical therapy, focusing on vestibular exercises and strength training to improve balance and reflexes. - Discussed the potential role of impaired vision in balance issues; recommended ongoing collaboration with eye care specialists. - Referred to social service worker Maryjo Olmos for assistance with home health options and potential assisted living arrangements. # Essential hypertension (I10) - Current medication regimen includes atenolol 100 mg with chlorthalidone 25 mg, half a pill daily. - Discontinued chlorthalidone due to potential contribution to dizziness and nocturia. - Initiated atenolol 50 mg daily to maintain blood pressure control. - Discontinued potassium supplementation. - Ordered blood pressure monitoring at home or follow-up in the clinic to ensure adequate control. # Nocturia more than twice per night (R35.1) - Likely exacerbated by chlorthalidone; discontinued medication. - Anticipate improvement in nocturia with cessation of chlorthalidone. # Vision impairment (H54.7) - Worsening vision contributing to balance issues. - Advised to continue follow-up with ophthalmology for management and explore alternative treatment options if current therapies are not covered by insurance. # Encounter for immunization (Z23) - Administered influenza vaccine during the visit. Adeel Hayes MD documented in this encounter [facility] 07-04-2024 Telephone encounter Note Patient reports she spoke to someone earlier this morning that was going to schedule and appt with pcp for her. Asking if an appt was scheduled. Advised patient she is scheduled with pcp on 07-09-24 @ 2:40 pm. Patient states she needed to know this so she can arrange for transportation. [facility] 07-04-2024 Miscellaneous Notes Patient reports she spoke to someone earlier this morning that was going to schedule and appt with pcp for her. Asking if an appt was scheduled. Advised patient she is scheduled with pcp on 07-09-24 @ 2:40 pm. Patient states she needed to know this so she can arrange for transportation. documented in this encounter [facility] 06-23-2024 Telephone encounter Note Pt called in to have referral to [facility] faxed along with supporting information, face sheet, office notes and referral. Fax to [phone]. I also called [facility] to verify what they needed. Faxed everything and notified pt. Chelsi Osorio LPN [facility] 06-23-2024 Miscellaneous Notes Pt called in to have referral to [facility] faxed along with supporting information, face sheet, office notes and referral. Fax to [phone]. I also called [facility] to verify what they needed. Faxed everything and notified pt. Chelsi Osorio LPN documented in this encounter [facility] 06-23-2024 Note HNO ID: [id number] Author: DESTINI LEE APRN.DONOR RELATIONS OFFICER Service: ? Author Type: Nurse Practitioner Type: Progress Notes Filed: 06/23/2024 13:28 Note Text: SUBJECTIVE Dodie Li is a 78 year old female here today for a check up on her medical problems. Chief Complaint Patient presents with: Diarrhea: 3-4 times a day with cramps. Treating with Imodium which seems to be helping. Question is something she eat that caused diarrhea Fall: is questioning if the doxepin is causing these falls usually during the middle of night when she wakes up to go potty. stated falls did not start until after she had hip replacement HPI Dodie Li is a 78 year old female. She is an established patient of Adeel Hayes MD. She notices that she is having more falls at night since increasing her doxepin. She feels more off balance, more tired. Not taking her Zoloft because was concerned about drowsiness. Having more tiredness/feeling effects in the morning. Diarrhea since Sunday, thinks it had garlic in potato pancakes she had. This is improving. Took imodium. Her medications were reviewed today and her list is now up to date. Medications Current Outpatient Medications Medication Sig vit C/E/Zn/coppr/lutein/zeaxan (PRESERVISION AREDS-2 ORAL) Take 1 tablet by mouth once daily. omeprazole (PRILOSEC) 20 mg capsule Take 1 capsule by mouth once daily. OAT BRAN ORAL Take 2 tablets by mouth once daily. Atenolol-Chlorthalidone 100-25 mg per tablet TAKE 1/2 TABLET ONE TIME DAILY potassium chloride ER (KLOR-CON M10) 10 mEq tablet Take 1 tablet by mouth once daily. gemfibrozil (LOPID) 600 mg tablet Take 1 tablet by mouth two times a day. calcium carbonate (CALTRATE 600 ORAL) Take 1 tablet by mouth once daily. docusate sodium (STOOL SOFTENER ORAL) Take 2 capsules by mouth daily at bedtime. VITAMIN E ACETATE ORAL Take 1 capsule by mouth once daily. Ascorbic Acid-Collagen (COLLAGEN PLUS VITAMIN C) 125-740 mg cap Take 1 capsule by mouth once daily. cyanocobalamin (VITAMIN B-12) 1,000 mcg tab Take 1,000 mcg by mouth once daily. YAYHYKT-WAKDEGSJZ-DVRW ORAL Take 1 tablet by mouth once daily. guaifenesin/dextromethorphan (MUCINEX DM ORAL) Take 1 tablet by mouth once daily as needed. fexofenadine (LETICIA) 60 mg tablet Take 60 mg by mouth once daily as needed. aspirin, enteric coated (ASPIRIN, ENTERIC COATED) 81 mg EC tablet Take 81 mg by mouth once daily. cholecalciferol(VITAMIN D 2,000 UNIT CAP) Take by mouth. OMEGA 3 550 MG CAP Take one(1) tablet daily. TYLENOL EXTRA STRENGTH 500 MG ORAL TAB Take two(2) tablets every four(4) to six(6) hours as needed. sertraline (ZOLOFT) 25 mg tablet Take 1 tablet by mouth daily at bedtime. polyethylene glycol 3350 (MIRALAX) 17 gram/dose powder Take 17 g by mouth once daily. CALCIUM + D 600 MG-200 UNIT ORAL TAB Take by mouth. (Patient not taking: Reported on 11/30/2023) No current facility-administered medications for this visit. ALLERGIES Allergen Reactions Simvastatin Other: See Comments Flu like sx, body aches Amoxicillin Rash Asa [Salicylates] if not coated Flagyl [Metronidazo* Lisinopril Penicillins Rash ACTIVE PROBLEM LIST Dizziness - 10/23/2021 Status Post Right Hip Replacement - 10/23/2021 Hypertriglyceridemia - 10/23/2021 Pain in Right Hip - 03/06/2019 Xerosis Cutis - 01/10/2013 Cracked Skin - 01/10/2013 Neurofibroma of Back - 01/10/2013 Intradermal Nevus - 01/10/2013 Acrochordon - 01/10/2013 Impaired Fasting Glucose - 03/22/2010 Osteoarthrosis, Unspecified Whether Generalized Or Localized, Lower Leg - 09/24/2008 Anxiety State - 05/11/2006 Reactive Depression Macular Degeneration (Senile) of Retina Carpal Tunnel Syndrome Obesity Fibromyalgia - 06/02/2005 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 Cardiovascular: Negative. Gastrointestinal: Positive for diarrhea. Psychiatric/Behavioral: Positive for sleep disturbance. OBJECTIVE BP 118/64 Pulse 72 Wt 175 lb 11.3 oz (79.7kg) SpO2 96% Physical Exam Vitals and nursing note reviewed. Constitutional: General: She is awake. She is not in acute distress. Appearance: Normal appearance. She is well-developed and well-groomed. She is not ill-appearing, toxic-appearing or diaphoretic. HENT: Head: Normocephalic. Right Ear: External ear normal. Left Ear: External ear normal. Nose: Nose normal. Eyes: General: Vision grossly intact. Conjunctiva/sclera: Conjunctivae normal. Pupils: Pupils are equal, round, and reactive to light. Neck: Vascular: No JVD. Trachea: Trachea normal. Pulmonary: Effort: Pulmonary effort is normal (more content not included)... [facility] 06-23-2024 History of Present illness Narrative SUBJECTIVE Dodie Li is a 78 year old female here today for a check up on her medical problems. Chief Complaint Patient presents with: Diarrhea: 3-4 times a day with cramps. Treating with Imodium which seems to be helping. Question is something she eat that caused diarrhea Fall: is questioning if the doxepin is causing these falls usually during the middle of night when she wakes up to go potty. stated falls did not start until after she had hip replacement HPI Dodie Li is a 78 year old female. She is an established patient of Adeel Hayes MD. She notices that she is having more falls at night since increasing her doxepin. She feels more off balance, more tired. Not taking her Zoloft because was concerned about drowsiness. Having more tiredness/feeling effects in the morning. Diarrhea since Sunday, thinks it had garlic in potato pancakes she had. This is improving. Took imodium. Her medications were reviewed today and her list is now up to date. Medications Current Outpatient Medications Medication Sig vit C/E/Zn/coppr/lutein/zeaxan (PRESERVISION AREDS-2 ORAL) Take 1 tablet by mouth once daily. omeprazole (PRILOSEC) 20 mg capsule Take 1 capsule by mouth once daily. OAT BRAN ORAL Take 2 tablets by mouth once daily. Atenolol-Chlorthalidone 100-25 mg per tablet TAKE 1/2 TABLET ONE TIME DAILY potassium chloride ER (KLOR-CON M10) 10 mEq tablet Take 1 tablet by mouth once daily. gemfibrozil (LOPID) 600 mg tablet Take 1 tablet by mouth two times a day. calcium carbonate (CALTRATE 600 ORAL) Take 1 tablet by mouth once daily. docusate sodium (STOOL SOFTENER ORAL) Take 2 capsules by mouth daily at bedtime. VITAMIN E ACETATE ORAL Take 1 capsule by mouth once daily. Ascorbic Acid-Collagen (COLLAGEN PLUS VITAMIN C) 125-740 mg cap Take 1 capsule by mouth once daily. cyanocobalamin (VITAMIN B-12) 1,000 mcg tab Take 1,000 mcg by mouth once daily. IXBULOV-MXGOAAETN-PTAV ORAL Take 1 tablet by mouth once daily. guaifenesin/dextromethorphan (MUCINEX DM ORAL) Take 1 tablet by mouth once daily as needed. fexofenadine (LETICIA) 60 mg tablet Take 60 mg by mouth once daily as needed. aspirin, enteric coated (ASPIRIN, ENTERIC COATED) 81 mg EC tablet Take 81 mg by mouth once daily. cholecalciferol(VITAMIN D 2,000 UNIT CAP) Take by mouth. OMEGA 3 550 MG CAP Take one(1) tablet daily. TYLENOL EXTRA STRENGTH 500 MG ORAL TAB Take two(2) tablets every four(4) to six(6) hours as needed. sertraline (ZOLOFT) 25 mg tablet Take 1 tablet by mouth daily at bedtime. polyethylene glycol 3350 (MIRALAX) 17 gram/dose powder Take 17 g by mouth once daily. CALCIUM + D 600 MG-200 UNIT ORAL TAB Take by mouth. (Patient not taking: Reported on 11/30/2023) No current facility-administered medications for this visit. ALLERGIES Allergen Reactions Simvastatin Other: See Comments Flu like sx, body aches Amoxicillin Rash Asa [Salicylates] if not coated Flagyl [Metronidazo* Lisinopril Penicillins Rash ACTIVE PROBLEM LIST Dizziness - 10/23/2021 Status Post Right Hip Replacement - 10/23/2021 Hypertriglyceridemia - 10/23/2021 Pain in Right Hip - 03/06/2019 Xerosis Cutis - 01/10/2013 Cracked Skin - 01/10/2013 Neurofibroma of Back - 01/10/2013 Intradermal Nevus - 01/10/2013 Acrochordon - 01/10/2013 Impaired Fasting Glucose - 03/22/2010 Osteoarthrosis, Unspecified Whether Generalized Or Localized, Lower Leg - 09/24/2008 Anxiety State - 05/11/2006 Reactive Depression Macular Degeneration (Senile) of Retina Carpal Tunnel Syndrome Obesity Fibromyalgia - 06/02/2005 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 Cardiovascular: Negative. Gastrointestinal: Positive for diarrhea. Psychiatric/Behavioral: Positive for sleep disturbance. OBJECTIVE BP 118/64 Pulse 72 Wt 175 lb 11.3 oz (79.7kg) SpO2 96% Physical Exam Vitals and nursing note reviewed. Constitutional: General: She is awake. She is not in acute distress. Appearance: Normal appearance. She is well-developed and well-groomed. She is not ill-appearing, toxic-appearing or diaphoretic. HENT: Head: Normocephalic. Right Ear: External ear normal. Left Ear: External ear normal. Nose: Nose normal. Eyes: General: Vision grossly intact. Conjunctiva/sclera: Conjunctivae normal. Pupils: Pupils are equal, round, and reactive to light. Neck: Vascular: No JVD. Trachea: Trachea normal. Pulmonary: Effort: Pulmonary effort is normal. No accessory muscle usage, prolonged expiration or respiratory distress. Musculoskeletal: Cervical back: Neck supple. Skin: General: Skin is warm and dry. Capillary Refill: Capillary refill takes less than 2 seconds. Neurological: General: No focal deficit present. Mental Status: She is alert and oriented to person, place, and time. Mental status is at baseline. Psychiatric: Attention and Perception: Attention and perception normal. Mood and Affect: Mood and affect normal. Speech: Speech normal. Behavior: Behavior normal. Behavior is cooperative. Thought Content: Thought content normal. Cognition and Memory: Cognition and memory normal. Judgment: Judgment normal. ASSESSMENT/PLAN: 1. Sleep disturbance - ICD9: 780.50, ICD10: G47.9 (primary diagnosis) Concerned that doxepin is causing falls at night, stop doxepin and can start Zoloft to help with anxiety, may help promote sleep without causing the drowsiness. 2. Repeated falls - ICD9: 781.99, ICD10: R29.6 See above, discussed falls prevention strategies, encouraged walker use at night. 3. Situational mixed anxiety and depressive disorder - ICD9: 309.28, ICD10: F43.23 See #1 Start the Zoloft for mood. 4. Diarrhea, unspecified type - ICD9: 787.91, ICD10: R19.7 Suspect this is food sensitivity related, imodium ok but if diarrhea not resolving in the next few days then she is to let us know. Portions of this note have been entered by ancillary staff. I have reviewed and when necessary edited, so that they are an adequate record of my encounter with this patient Please note that parts of this document were created using voice recognition software and therefore may contain grammatical errors. Patient verbalizes understanding of instructions from today's visit and in agreement with treatment plan. Questions answered. Agrees to call the office if questions, concerns of issues with acute symptoms not improving or if they worsen. See diagnoses and orders for additional plan(s). Allergies and medications were reviewed, list was updated, and refills given if needed. Past medical, surgical, social, and family history reviewed and updated as appropriate. Encouraged proper diet & exercise as well as compliance with taking medications. Age-appropriate health preventative measures were discussed. Return in about 6 weeks (around 08/04/2024) for recheck on new medication.. MARQUIS Arredondo documented in this encounter [facility] 06-23-2024 Telephone encounter Note Patient calls with medication concerns. Patient has been on 10 mg Doxepin for years to help with sleep. Patient states that she has noticed that she has been feeling drowsy when she wakes up in the morning. Patient is concerned that the medication is doing this to her. Advised patient that she needs to set up appointment to discuss medication and drowsiness in the am. Patient voices understanding. Patient scheduled to see Destini talavera 06/23/2024. Carla Bejarano RN [facility] 06-23-2024 Miscellaneous Notes Patient calls with medication concerns. Patient has been on 10 mg Doxepin for years to help with sleep. Patient states that she has noticed that she has been feeling drowsy when she wakes up in the morning. Patient is concerned that the medication is doing this to her. Advised patient that she needs to set up appointment to discuss medication and drowsiness in the am. Patient voices understanding. Patient scheduled to see Destini talavera 06/23/2024. Carla Bejarano RN documented in this encounter [facility] 06-13-2024 Telephone encounter Note Carla Hinojosa calls to let provider know that they are unable to accept referral for HH d/t patients insurance. Attempted to contact patient with no answer and not able to leave a message. Daniela Gordon RN [facility] 06-13-2024 Miscellaneous Notes Carla with [facility] calls to let provider know that they are unable to accept referral for HH d/t patients insurance. Attempted to contact patient with no answer and not able to leave a message. Daniela Gordon RN Most recent home health services noted in chart was through [facility]. Spoke with patient to confirm this was so and order for PT was faxed to [facility]. PT would be a good idea, orders placed for in home PT with [facility], please fax orders. Patient calls and states that at last appointment provider had discussed with her that she may benefit from more physical therapy. Patient asking provider if she thinks that would be beneficial and if she does if orders can be place for home physical therapy? Patient had used [facility] previously for home health. Please review and advise, Carla Bejarano RN documented in this encounter [facility] 06-13-2024 Telephone encounter Note Most recent home health services noted in chart was through [facility]. Spoke with patient to confirm this was so and order for PT was faxed to [facility]. [facility] 06-11-2024 Telephone encounter Note PT would be a good idea, orders placed for in home PT with [facility], please fax orders. [facility] 06-10-2024 Telephone encounter Note Patient calls and states that at last appointment provider had discussed with her that she may benefit from more physical therapy. Patient asking provider if she thinks that would be beneficial and if she does if orders can be place for home physical therapy? Patient had used [facility] previously for home health. Please review and advise, Carla Bejarano RN [facility] 05-28-2024 Instructions Adeel Hayes MD - 05/28/2024 4:27 PM EDT -Continue your home exercises for balance and strength, as previously instructed by physical therapy. - For hand strength and coordination, consider using a grease man strengthener or squeezing a soft ball. You can also practice picking up small objects like coins or marbles. - For arm strength, you can use light weights like soup cans or water bottles. Perform exercises like bicep curls and tricep extensions. If you experience discomfort, start with playroom attendant weights or no weight at all. - To improve balance, practice carrying a light weight (e.g., a soup can) in one hand while walking. Focus on maintaining an upright posture. As you become more comfortable, you can increase the weight or carry weights in both hands. - Keep your skin clean and dry to prevent yeast infections. Consider using a cornstarch-based powder instead of talcum powder. - Continue taking your medications as prescribed, including doxepin for sleep and omeprazole for acid reflux. - Your next appointment is scheduled for December with Destini, and again in May for another wellness check. Screening schedule The following prevention plan is recommended: BP Controlled (<130/80) Never done Bone Density Screening Never done Shingrix Vaccine(2 of 3) due on 11/21/2012 DTaP,Tdap,Td Vaccine(2 - Td or Tdap) due on 09/27/2022 WHAT YOU CAN DO TO PREVENT FALLS Many falls can be prevented. By making some changes, you can lower your chances of falling. Four things YOU can do to prevent falls for you* and your caregiver 1. Begin a regular exercise program Exercise is one of the most important ways to lower your chances of falling. It makes you stronger and helps you feel better. Exercises that improve balance and coordination (like Eric Chi) are the most helpful. Lack of exercise leads to weakness and increases your chances of falling. Ask your doctor or health care provider about the best type of exercise program for you. 2. Have your health care provider review your medicines Have your doctor or pharmacist review all the medicines you take, even antl-swy-qfmijzj medicines. As you get older, the way medicines work in your body can change. Some medicines, or combinations of medicines, can make you sleepy or dizzy and can cause you to fall. 3. Have your vision checked Have your eyes checked by an eye doctor at least once a year. You may be wearing the wrong glasses or have a condition like glaucoma or cataracts that limits your vision. Poor vision can increase your chances of falling. 4. Make your home safer About half of all falls happen at home. To make your home safer: Remove things you can trip over (like papers, books, clothes, and shoes) from stairs and places where you walk. Remove small throw rugs or use double-sided tape to keep the rugs from slipping. Keep items you use often in cabinets you can reach easily without using a step stool. Have grab bars put in next to your toilet and in the tub or shower. Use non-slip mats in the bathtub and on shower floors. Improve the lighting in your home. As you get older, you need brighter lights to see well. Hang light-weight curtains or shades to reduce glare. Have handrails and lights put in on all staircases. Wear shoes both inside and outside the house. Avoid going barefoot or wearing slippers. For more information, contact: Centers for Disease Control and Prevention www.cdc.gov/injury * This information may not apply if you have certain medical conditions. documented in this encounter [facility] 05-28-2024 Note HNO ID: [id number] Author: ADEEL HAYES MD Service: ? Author Type: Physician Type: Progress Notes Filed: 07/10/2024 23:58 Note Text: Dodie Li is a 78 year old female here for a Medicare wellness visit. Medicare Health Risk Assessment General Health Fair Exercise: Minutes/Day 0 min Exercise: Days/Week 0 days Alcohol: Daily Use Never Alcohol: Drinks/Day Patient does not drink Alcohol: 6 or more drinks Never Feel off balance Yes Concerns: Teeth/Dentures No Concerns: Sexual function No Troubled by feelings None of the above Frequency: Eating healthy diet Nearly every day ADLs requiring help None of the above Safety precautions in home/vehicle Yes Smoke, vape, chews tobacco No Difficulty hearing Yes Difficulty seeing Yes Current Providers Specialists: I have reviewed specialist-related care of the patient in the medical record. Outside specialists seen: Dr. Lal (Retinal specialist), Sapphire Olivares (did hip surgery), Dr. Debra Silva (ophthalmology), Dr. Denny Briseno (pulmonary physical therapist) Medical/Family history review Reviewed and updated problem list, medical/surgical/family/social history, medications, and allergies. Opioid use review Opioid Medications (last 90 days) No data to display Anxiety/Depression screening PHQ-2 Score: 0 (Lower risk for depression) Recommendation: no further intervention at this time Cognitive screening Mini Cog Score: 5 Cognitive screening reviewed and No further action needed (score 3-5). Functional Observation Was the patient's Timed Up AND Go test unsteady or >= 12 seconds? Does stand up without cane but has to take small steps to maintain balance Advance Care Planning Surrogate decision maker and/or advance care plan documented Measurements BP 128/82 Pulse 68 Temp 36.5 ?C (97.7 ?F) Resp 16 Ht 148.5 cm (4' 10.47) Wt 79.5 kg (175 lb 4.3 oz) SpO2 98% BMI 36.05 kg/m? Vision Screening: Follows with optometry/ophthalmology Assessment/Plan Medicare annual wellness visit, subsequent (Z00.00) - Counseled on healthy diet and regular exercise - Fall avoidance information provided - Personalized prevention plan provided Additional Concerns The following concerns were also discussed with the patient: Patient is a 78-year-old female presenting for a wellness visit. Patient has a history of right hip replacement and bilateral wrist surgeries, with the left wrist surgery performed in [place] and the right wrist surgery in [place]. She reports occasional pain in her wrists, particularly when lifting heavy objects, and notes a history of her wrist locking in the past. She also experiences balance issues, especially when carrying heavy items or opening heavy doors, and mentions a recent incident where lifting a six-pack of water irritated her wrist. Patient has been lax in performing her physical therapy exercises at homebut plans to resume them to improve her balance and strength. Patient is currently taking doxepin 10 mg at bedtime for sleep, which she finds effective without causing grogginess. She was previously prescribed sertraline but discontinued it due to excessive drowsiness. She also takes gemfibrozil 600 mg twice daily, potassium chloride 10 mEq daily, and omeprazole 20 mg daily. She supplements with PreserVision, lutein, vitamin C, Caltrate, B-complex with vitamin C, calcium, zinc, fish oil, and vitamin E 400 IU daily. She uses a stool softener as needed. Patient follows up with Dr. Lal, a retinal specialist, for eye care and has seen Dr. Aletha Silva and Dr. Denny Briseno for routine eye exams. She does not have any siblings and relies on friends for transportation, as she does not drive much. She expresses feelings of loneliness and isolation, particularly due to a friend becoming less available and the absence of nearby family. She has considered using [employer] transportation services but is unsure of their availability. She also mentions difficulty navigating certain environments, such as gravel surfaces, which further limits her mobility. PHYSICAL EXAM BP 128/82 Pulse 68 Temp 36.5 ?C (97.7 ?F) Resp 16 Ht 148.5 cm (4' 10.47) Wt 79.5 kg (175 lb 4.3 oz) SpO2 98% BMI 36.05 kg/m? GENERAL: well appearing, alert, in no acute distress and ambulates with cane CARDIOVASCULAR: regular rate and rhythm. No murmur, rubs or gallops. PULMONARY: clear to auscultation, no wheezing, rhonchi, or crackles ABDOMEN: soft, non-tender, non-distended, no masses or organomegaly EXTREMITY: no lower extremity edema. No skin discoloration. Medicare annual wellness visit, subsequent: - Conducted comprehensive wellness examination as required by [facility]. - Reviewed and updated patient's medication list, including vitamins and supplements. - Discussed the importance of regular physical activity and exercises to maintain muscle strength and balance. - Educated patient on the be (more content not included)... [facility] 05-06-2024 Telephone encounter Note The patient has been identified by name and date of : Yes Caregiver verified no other encounters exist for this prescription request: Yes Caregiver confirmed with patient/requestor that no other refills are due, in the near future, with this provider at this time: Yes The last office visit in the department: 03/12/2024 Does the patient have a future office visit with this provider/department: Yes 05/28/2024 Requested Prescriptions Pending Prescriptions Disp Refills Atenolol-Chlorthalidone 100-25 mg per tablet 90 tablet 3 Sig: TAKE 1/2 TABLET ONE TIME DAILY potassium chloride ER (KLOR-CON M10) 10 mEq tablet 90 tablet 3 Sig: Take 1 tablet by mouth once daily. gemfibrozil (LOPID) 600 mg tablet 180 tablet 3 Sig: Take 1 tablet by mouth two times a day. Meredith Varela RN May 06, 2024 9:53 AM T [facility] 05-06-2024 Miscellaneous Notes The patient has been identified by name and date of : Yes Caregiver verified no other encounters exist for this prescription request: Yes Caregiver confirmed with patient/requestor that no other refills are due, in the near future, with this provider at this time: Yes The last office visit in the department: 03/12/2024 Does the patient have a future office visit with this provider/department: Yes 05/28/2024 Requested Prescriptions Pending Prescriptions Disp Refills Atenolol-Chlorthalidone 100-25 mg per tablet 90 tablet 3 Sig: TAKE 1/2 TABLET ONE TIME DAILY potassium chloride ER (KLOR-CON M10) 10 mEq tablet 90 tablet 3 Sig: Take 1 tablet by mouth once daily. gemfibrozil (LOPID) 600 mg tablet 180 tablet 3 Sig: Take 1 tablet by mouth two times a day. Meredith Varela RN May 06, 2024 9:53 AM documented in this encounter [facility] 04-24-2024 Telephone encounter Note Patient notified of providers message and verbalized understanding. Medicare wellness scheduled. [facility] 04-24-2024 Miscellaneous Notes Patient notified of providers message and verbalized understanding. Medicare wellness scheduled. Noted that patient needs Medicare AWV--see if wants to come in for that (covered by insurance) and can discuss vitamins at that time. If she already bought the vitamins, an compare bottles of what she has and decide what to stay on and what to stop. Pt called back and had another question in addition to below. If it is okay to take the Nature's Balance does she need to stop some of the other OTC vitamins she is taking and if so please let pt know. Chelsi Osorio LPN Pt calls to reports she does not eat enough fruits and vegetables and would like to take a supplement: Balance Nature. Pt reports there is one for fruits and one for vegetables. Pt is asking if it is ok to take this. Winifred Calixto LPN documented in this encounter [facility] 04-24-2024 Telephone encounter Note Noted that patient needs Medicare AWV--see if wants to come in for that (covered by insurance) and can discuss vitamins at that time. If she already bought the vitamins, an compare bottles of what she has and decide what to stay on and what to stop. T [facility] 04-22-2024 Telephone encounter Note Pt called back and had another question in addition to below. If it is okay to take the Nature's Balance does she need to stop some of the other OTC vitamins she is taking and if so please let pt know. Chelsi Osorio LPN [facility] 04-22-2024 Telephone encounter Note Pt calls to reports she does not eat enough fruits and vegetables and would like to take a supplement: Balance Nature. Pt reports there is one for fruits and one for vegetables. Pt is asking if it is ok to take this. Winifred Calixto LPN T [facility] 04-08-2024 Note HNO ID: [id number] Author: VICTORIA ASHLEY, ? Service: ? Author Type: Physician Type: Progress Notes Filed: 04/08/2024 11:40 Note Text: Subjective: Patient presents to clinic c/o painful toenails. They state that the nails are especially painful with shoe gear and pressure. No other pedal complaints at this time. Patient states no change in medications or medical history since last visit. Objective: Patient presents to clinic ambulating in [facility] Vasc: DP and PT pulses are nonpalpable bilateral. CFT is less than 5 seconds bilateral. Skin temperature is warm to cool proximal to distal bilateral. There is mild edema or varicosities noted. Neuro: Protective sensation is intact to the foot and toes when tested with the 5.07 SWM bilateral. Vibratory sensation is decreased at the hallux IPJ bilateral. The hallux is downgoing bilateral. Derm: Nails 2-5 b/l are painful, discolored-yellow, thick, crumbly, dystrophic and with subungal debris. Skin is of normal turgor, texture and hair growth is absent bilateral. There are no hyperkeratosis, ulcerations, scars, verruca or other lesions noted. Ortho: Muscle strength is 5/5 for all pedal groups tested. Ankle joint DF is decreased with the knee extended with no pain or crepitus noted. 1st MPJ ROM is decreased bilateral. Assessment: (B35.1) Onychomycosis (primary encounter diagnosis) (M79.675) Pain in toe of left foot (M79.674) Pain in toe of right foot Plan: Patient was seen and evaluated. Nails 2-5 bilateral were debrided in length and thickness. B/l hallux reduced with dremmel at patient request not to debride nails. Patient is to RTC in 5 months. Victoria Ashley DPM [facility] 04-08-2024 History of Present illness Narrative Subjective: Patient presents to clinic c/o painful toenails. They state that the nails are especially painful with shoe gear and pressure. No other pedal complaints at this time. Patient states no change in medications or medical history since last visit. Objective: Patient presents to clinic ambulating in [facility] Vasc: DP and PT pulses are nonpalpable bilateral. CFT is less than 5 seconds bilateral. Skin temperature is warm to cool proximal to distal bilateral. There is mild edema or varicosities noted. Neuro: Protective sensation is intact to the foot and toes when tested with the 5.07 SWM bilateral. Vibratory sensation is decreased at the hallux IPJ bilateral. The hallux is downgoing bilateral. Derm: Nails 2-5 b/l are painful, discolored-yellow, thick, crumbly, dystrophic and with subungal debris. Skin is of normal turgor, texture and hair growth is absent bilateral. There are no hyperkeratosis, ulcerations, scars, verruca or other lesions noted. Ortho: Muscle strength is 5/5 for all pedal groups tested. Ankle joint DF is decreased with the knee extended with no pain or crepitus noted. 1st MPJ ROM is decreased bilateral. Assessment: (B35.1) Onychomycosis (primary encounter diagnosis) (M79.675) Pain in toe of left foot (M79.674) Pain in toe of right foot Plan: Patient was seen and evaluated. Nails 2-5 bilateral were debrided in length and thickness. B/l hallux reduced with dremmel at patient request not to debride nails. Patient is to RTC in 5 months. Victoria Ashley DPM Patient presents with: Left Foot - Established Patient, Follow Up, nail care Right Foot - Established Patient, Follow Up, nail care Patient presents for follow up nail care. ASHLEY 12/18/23 documented in this encounter [facility] 04-08-2024 Note HNO ID: [id number] Author: DEIDRA CURRY RN Service: ? Author Type: Registered Nurse Type: Progress Notes Filed: 04/08/2024 11:40 Note Text: Patient presents with: Left Foot - Established Patient, Follow Up, nail care Right Foot - Established Patient, Follow Up, nail care Patient presents for follow up nail care. ASHLEY 12/18/23 [facility] 03-24-2024 Telephone encounter Note Added result note: Labs all within normal limits except for mildly elevated BUN. Patient was already counseled to drink more water on a regular basis to maintain hydration. No further recommendations needed [facility] 03-24-2024 Miscellaneous Notes Added result note: Labs all within normal limits except for mildly elevated BUN. Patient was already counseled to drink more water on a regular basis to maintain hydration. No further recommendations needed Pt called in asking for lab results to be mailed to her. Verified mailing address, and mailed labs. Let her know her BUN was elevated, but had come down from 25 last time to 24. BUN is supposed to be between 7-21. I asked Pt is she was hydrating with water, and she said not like she should. Pt states she will start drinking more water. She said her PT told her she needs to drink more water too. I let her know if the provider had any other information to tell her about her lab results she would get back to her. Please call and advise/. documented in this encounter [facility] 03-24-2024 Telephone encounter Note Pt called in asking for lab results to be mailed to her. Verified mailing address, and mailed labs. Let her know her BUN was elevated, but had come down from 25 last time to 24. BUN is supposed to be between 7-21. I asked Pt is she was hydrating with water, and she said not like she should. Pt states she will start drinking more water. She said her PT told her she needs to drink more water too. I let her know if the provider had any other information to tell her about her lab results she would get back to her. Please call and advise/. [facility] 03-21-2024 Telephone encounter Note Home care Certification Form 485 received from [facility]. For cert dates 02/10/2024-04/09/2024 that were signed on 02/19/2024. Recertification Patient's home health 485 form / care plan for stated certification period reviewed and signed. Relevant medical records were reviewed. No changes were indicated [facility] 03-21-2024 Miscellaneous Notes Home care Certification Form 485 received from [facility]. For cert dates 02/10/2024-04/09/2024 that were signed on 02/19/2024. Recertification Patient's home health 485 form / care plan for stated certification period reviewed and signed. Relevant medical records were reviewed. No changes were indicated documented in this encounter [facility] 03-13-2024 Telephone encounter Note Pt called and is notified of providers message. Pt voices understanding. Deidra Flores RN [facility] 03-13-2024 Miscellaneous Notes Pt called and is notified of providers message. Pt voices understanding. Deidra Flores RN The following approved medication requests have been transmitted electronically. Requested Prescriptions Signed Prescriptions Disp Refills doxepin capsule 10 mg 90 capsule 3 Sig: Take 1 capsule by mouth daily at bedtime. Authorizing Provider: ADEEL HAYES MD Pt reports she accidentally had provider send medication to [facility] and she alonso get them cheaper through [facility]. Please send to [facility] in [place] and call Pt once sent. Prescription Refill Information The patient has been identified by name and date of : Yes Caregiver verified no other encounters exist for this prescription request: Yes Caregiver confirmed with patient/requestor that no other refills are due, in the near future, with this provider at this time: Yes The last office visit in the department: 03/12/24 Does the patient have a future office visit with this provider/department: Yes Requested Prescriptions Pending Prescriptions Disp Refills doxepin capsule 10 mg 90 capsule 3 Sig: Take 1 capsule by mouth daily at bedtime. Deidra Flores RN March 13, 2024 8:18 AM documented in this encounter [facility] 03-13-2024 Telephone encounter Note The following approved medication requests have been transmitted electronically. Requested Prescriptions Signed Prescriptions Disp Refills doxepin capsule 10 mg 90 capsule 3 Sig: Take 1 capsule by mouth daily at bedtime. Authorizing Provider: ADEEL HAYES MD [facility] 03-13-2024 Telephone encounter Note Pt reports she accidentally had provider send medication to [facility] and she alonso get them cheaper through [facility]. Please send to [facility] in [place] and call Pt once sent. Prescription Refill Information The patient has been identified by name and date of : Yes Caregiver verified no other encounters exist for this prescription request: Yes Caregiver confirmed with patient/requestor that no other refills are due, in the near future, with this provider at this time: Yes The last office visit in the department: 03/12/24 Does the patient have a future office visit with this provider/department: Yes Requested Prescriptions Pending Prescriptions Disp Refills doxepin capsule 10 mg 90 capsule 3 Sig: Take 1 capsule by mouth daily at bedtime. Deidra Flores RN March 13, 2024 8:18 AM [facility] 03-12-2024 Instructions Adeel Hayes MD - 03/12/2024 10:27 AM EDT Okay to try half pill Zoloft nightly with 10mg Doxepin. Can adjust doses as needed. May increase Zoloft to whole pill as needed. documented in this encounter [facility] 03-12-2024 History of Present illness Narrative This note was created using [employer]. Subjective Dodie Li is a 78 year old female. Patient presents with: F/U 6 months SUBJECTIVE: Dodie Li is a 78 year old year old lady here today for 6 month follow up appointment for review of medical conditions. Getting lab son way out. Noted that seldom drives. Following with Dr. Debra Silva for cataracts and decide whether to do surgery prior to eye injections per Dr. Melissa medley dry MD. Was worried about potential side effects from injection he recommended. Was not taking Zoloft at this time since does not feel as depressed and not crying as much. Has PT at home--helping with balance and walking. Working on stamina. Doing better. PAST MEDICAL HISTORY Diagnosis Date Carpal tunnel syndrome Depressive disorder, not elsewhere classified Esophageal reflux Macular degeneration (senile) of retina, unspecified Myalgia and myositis, unspecified Obesity, unspecified Unspecified essential hypertension Current Outpatient Medications Medication Sig calcium carbonate (CALTRATE 600 ORAL) Take 1 tablet by mouth once daily. docusate sodium (STOOL SOFTENER ORAL) Take 2 capsules by mouth daily at bedtime. VITAMIN E ACETATE ORAL Take 1 capsule by mouth once daily. Ascorbic Acid-Collagen (COLLAGEN PLUS VITAMIN C) 125-740 mg cap Take 1 capsule by mouth once daily. cyanocobalamin (VITAMIN B-12) 1,000 mcg tab Take 1,000 mcg by mouth once daily. doxepin capsule 25 mg Take 1 capsule by mouth daily at bedtime. Atenolol-Chlorthalidone 100-25 mg per tablet TAKE 1/2 TABLET ONE TIME DAILY potassium chloride ER (KLOR-CON M10) 10 mEq tablet Take 1 tablet by mouth two times a day. (Patient taking differently: Take 10 mEq by mouth once daily.) gemfibrozil (LOPID) 600 mg tablet Take 1 tablet by mouth two times a day. omeprazole (PRILOSEC) 20 mg capsule Take 1 capsule by mouth once daily. guaifenesin/dextromethorphan (MUCINEX DM ORAL) Take 1 tablet by mouth once daily as needed. fexofenadine (LETICIA) 60 mg tablet Take 60 mg by mouth once daily as needed. polyethylene glycol 3350 (MIRALAX) 17 gram/dose powder Take 17 g by mouth once daily. aspirin, enteric coated (ASPIRIN, ENTERIC COATED) 81 mg EC tablet Take 81 mg by mouth once daily. cholecalciferol(VITAMIN D 2,000 UNIT CAP) Take by mouth. OMEGA 3 550 MG CAP Take one(1) tablet daily. TYLENOL EXTRA STRENGTH 500 MG ORAL TAB Take two(2) tablets every four(4) to six(6) hours as needed. sertraline (ZOLOFT) 25 mg tablet Take 1 tablet by mouth once daily. (Patient not taking: Reported on 03/12/2024) [id number] ORAL Take 1 tablet by mouth once daily. (Patient not taking: Reported on 03/12/2024) omeprazole (PRILOSEC) 20 mg capsule Take 1 capsule by mouth once daily. (Patient not taking: Reported on 11/30/2023) nystatin (MYCOSTATIN) powder Apply 1 application to affected area four times daily as needed (yeast infection). (Patient not taking: Reported on 02/12/2024) CALCIUM + D 600 MG-200 UNIT ORAL TAB Take by mouth. (Patient not taking: Reported on 11/30/2023) No current facility-administered medications for this visit. Review of Systems Objective BP 112/62 Pulse 61 Temp 36.7 C (98 F) Resp 18 Wt 80.3 kg (177 lb) SpO2 98% BMI 33.44 kg/m Physical Exam Constitutional: Appearance: Normal appearance. She is obese. HENT: Head: Normocephalic. Eyes: Conjunctiva/sclera: Conjunctivae normal. Cardiovascular: Rate and Rhythm: Normal rate and regular rhythm. Heart sounds: Normal heart sounds. Pulmonary: Effort: Pulmonary effort is normal. Breath sounds: Normal breath sounds. Musculoskeletal: Right lower leg: No edema. Left lower leg: No edema. Skin: General: Skin is warm and dry. Neurological: General: No focal deficit present. Mental Status: She is alert and oriented to person, place, and time. Psychiatric: Mood and Affect: Mood normal. Behavior: Behavior normal. Thought Content: Thought content normal. Judgment: Judgment normal. Assessment and Plan Encounter Diagnosis ICD-10-CM 1. 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 Continue same but try lower dose with Zoloft at night 2. Situational mixed anxiety and depressive disorder F43.23 Will try Zoloft 12.5 mg with Doxepin at night 3. Gait instability R26.81 Doing well with PT. Will continue 4. Essential hypertension I10 Well controlled ; stay onsame meds. Labs on way out 5. Hypokalemia E87.6 Will adjust dose as needed. Taking 1 daily but will increase to 2 pills if needed 6. Screening for colon cancer Z12.11 IMMUNOCHEMICAL FECAL OCCULT BLOOD TEST 7. Encounter for immunization Z23 TDAP PRINTED PHARMACY INSTRUCTIONS Above issues addressed with patient. Patient involved in shared decision making for management of medical issues. History and medications reviewed. Epic updated as needed Refills and/or prescriptions taken care of and meds adjusted as indicated after reviewed history, exam and labs. Health Maintenance reviewed. Updated record and/or ordered tests as recorded. Encouraged on efforts at healthy diet and regular exercise and adequate sleep. Adeel Hayes MD documented in this encounter [facility] 02-19-2024 Telephone encounter Note Sw spoke with patient regarding transportation and social programs in the community. Patient reports that she has macular degeneration. Patient reports that she did go and sign up for [employer] vouchers. Discussed [employer] and their program that offers transportation to medical and non medical, stores and other appts, safety home modifications, scam awareness and bill pay IT assistance. Patient reports that she did sign up for [employer] Day activities and was told about marjorie to attend daily. Patient reports with marjorie assistance she could attend [employer] a couple of times a month. Sw also provided patient with [employer] phone number for [email or web address] program. Patient reports that she uses a large magnifier but was looking for another magnifying option to help with reading. Sw also noted that she will mail out [facility] [facility] resource guide to patient home. Patient thanked Saad for the call and will speak with [employer] to see about transportation assistance to stores and medical appts. [facility] 02-19-2024 Miscellaneous Notes Sw spoke with patient regarding transportation and social programs in the community. Patient reports that she has macular degeneration. Patient reports that she did go and sign up for [employer] vouchers. Discussed [employer] and their program that offers transportation to medical and non medical, stores and other appts, safety home modifications, scam awareness and bill pay IT assistance. Patient reports that she did sign up for [employer] Day activities and was told about marjorie to attend daily. Patient reports with marjorie assistance she could attend [employer] a couple of times a month. Saad also provided patient with [employer] phone number for [place] [facility] program. Patient reports that she uses a large magnifier but was looking for another magnifying option to help with reading. Sw also noted that she will mail out [employer] [facility] resource guide to patient home. Patient thanked Saad for the call and will speak with [employer] to see about transportation assistance to stores and medical appts. Saad left message for patient to return call to discuss transportation and community socialization agency info. documented in this encounter [facility] 02-15-2024 Telephone encounter Note Saad left message for patient to return call to discuss transportation and community socialization agency info. [facility] 02-12-2024 History of Present illness Narrative SUBJECTIVE Dodie Li is a 78 year old female here today for a check up on her medical problems. Chief Complaint Patient presents with: Depression: due to poor eye site HPI Dodie Li is a 78 year old female. She is an established patient of Adeel Hayes MD. She presents today for concerns of feeling depressed, anxious, overwhelmed. She has known macular degeneration and recently found out it is worsening. IT is hard for her to be more dependent on others, limited support in the area, no family around. Doing PT at home. Needs help getting to appointments. Her medications were reviewed today and her list is now up to date. Medications Current Outpatient Medications Medication Sig VITAMIN E ACETATE ORAL Take 1 capsule by mouth once daily. Ascorbic Acid-Collagen (COLLAGEN PLUS VITAMIN C) 125-740 mg cap Take 1 capsule by mouth once daily. cyanocobalamin (VITAMIN B-12) 1,000 mcg tab Take 1,000 mcg by mouth once daily. [id number] ORAL Take 1 tablet by mouth once daily. doxepin capsule 25 mg Take 1 capsule by mouth daily at bedtime. Atenolol-Chlorthalidone 100-25 mg per tablet TAKE 1/2 TABLET ONE TIME DAILY potassium chloride ER (KLOR-CON M10) 10 mEq tablet Take 1 tablet by mouth two times a day. gemfibrozil (LOPID) 600 mg tablet Take 1 tablet by mouth two times a day. omeprazole (PRILOSEC) 20 mg capsule Take 1 capsule by mouth once daily. guaifenesin/dextromethorphan (MUCINEX DM ORAL) Take 1 tablet by mouth once daily as needed. fexofenadine (LETICIA) 60 mg tablet Take 60 mg by mouth once daily. polyethylene glycol 3350 (MIRALAX) 17 gram/dose powder Take 17 g by mouth once daily. aspirin, enteric coated (ASPIRIN, ENTERIC COATED) 81 mg EC tablet Take 81 mg by mouth once daily. cholecalciferol(VITAMIN D 2,000 UNIT CAP) Take by mouth. OMEGA 3 550 MG CAP Take one(1) tablet daily. TYLENOL EXTRA STRENGTH 500 MG ORAL TAB Take two(2) tablets every four(4) to six(6) hours as needed. sertraline (ZOLOFT) 25 mg tablet Take 1 tablet by mouth once daily. ALPRAZolam (XANAX) 0.25 mg tablet Take 0.5-1 tablets by mouth three times a day as needed for anxiety for up to 10 days. omeprazole (PRILOSEC) 20 mg capsule Take 1 capsule by mouth once daily. (Patient not taking: Reported on 11/30/2023) nystatin (MYCOSTATIN) powder Apply 1 application to affected area four times daily as needed (yeast infection). (Patient not taking: Reported on 02/12/2024) CALCIUM + D 600 MG-200 UNIT ORAL TAB Take by mouth. (Patient not taking: Reported on 11/30/2023) No current facility-administered medications for this visit. ALLERGIES Allergen Reactions Amoxicillin Rash Asa [Salicylates] if not coated Flagyl [Metronidazo* Lisinopril Penicillins Rash ACTIVE PROBLEM LIST Dizziness - 10/23/2021 Status Post Right Hip Replacement - 10/23/2021 Hypertriglyceridemia - 10/23/2021 Pain in Right Hip - 03/06/2019 Xerosis Cutis - 01/10/2013 Cracked Skin - 01/10/2013 Neurofibroma of Back - 01/10/2013 Intradermal Nevus - 01/10/2013 Acrochordon - 01/10/2013 Impaired Fasting Glucose - 03/22/2010 Osteoarthrosis, Unspecified Whether Generalized Or Localized, Lower Leg - 09/24/2008 Anxiety State - 05/11/2006 Reactive Depression Macular Degeneration (Senile) of Retina Carpal Tunnel Syndrome Obesity Fibromyalgia - 06/02/2005 Persistent Disorder of Initiating Or Maintaining Sleep - 06/02/2005 Essential Hypertension - 06/02/2005 Esophageal Reflux - 06/02/2005 Social History Tobacco Use Smoking status: Never Smokeless tobacco: Never Vaping Use Vaping Use: Never used Substance Use Topics Alcohol use: No Drug use: No Review of Systems Respiratory: Negative. Cardiovascular: Negative. Psychiatric/Behavioral: Positive for dysphoric mood. The patient is nervous/anxious. OBJECTIVE BP 110/64 Pulse 71 Wt 176 lb (79.8kg) SpO2 97% Physical Exam Vitals and nursing note reviewed. Constitutional: General: She is awake. She is not in acute distress. Appearance: Normal appearance. She is well-developed and well-groomed. She is not ill-appearing, toxic-appearing or diaphoretic. HENT: Head: Normocephalic. Right Ear: External ear normal. Left Ear: External ear normal. Nose: Nose normal. Eyes: General: Vision grossly intact. Conjunctiva/sclera: Conjunctivae normal. Pupils: Pupils are equal, round, and reactive to light. Neck: Vascular: No JVD. Trachea: Trachea normal. Cardiovascular: Rate and Rhythm: Normal rate and regular rhythm. Pulses: Normal pulses. Heart sounds: Normal heart sounds. No murmur heard. Pulmonary: Effort: Pulmonary effort is normal. No accessory muscle usage, prolonged expiration or respiratory distress. Breath sounds: Normal breath sounds. Musculoskeletal: Cervical back: Neck supple. Skin: General: Skin is warm and dry. Capillary Refill: Capillary refill takes less than 2 seconds. Neurological: General: No focal deficit present. Mental Status: She is alert and oriented to person, place, and time. Mental status is at baseline. Psychiatric: Attention and Perception: Attention and perception normal. Mood and Affect: Mood is anxious and depressed. Affect is tearful. Speech: Speech normal. Behavior: Behavior normal. Behavior is cooperative. Thought Content: Thought content normal. Cognition and Memory: Cognition and memory normal. Judgment: Judgment normal. ASSESSMENT/PLAN: 1. Situational mixed anxiety and depressive disorder - ICD9: 309.28, ICD10: F43.23 (primary diagnosis) Start low dose of Zoloft, low dose xanax as needed for when anxiety is severe. Discussed new medication including but not limited to reason for use, possible side effects, administration, signs and symptoms to monitor for and when to seek medical attention. PDMP website checked and validated. All prescriptions have been APPROPRIATELY filled. No suspicious activity was identified. 02/12/2024 by Destini Lee APRN.CNP - SERTRALINE 25 MG TABLET - ALPRAZOLAM 0.25 MG TABLET 2. Macular degeneration of both eyes, unspecified type - ICD9: 362.50, ICD10: H35.30 Can reach out to social work to see about help with rides and also social programs to help get her out of the house. Portions of this note have been entered by ancillary staff. I have reviewed and when necessary edited, so that they are an adequate record of my encounter with this patient Please note that parts of this document were created using voice recognition software and therefore may contain grammatical errors. Patient verbalizes understanding of instructions from today's visit and in agreement with treatment plan. Questions answered. Agrees to call the office if questions, concerns of issues with acute symptoms not improving or if they worsen. See diagnoses and orders for additional plan(s). Allergies and medications were reviewed, list was updated, and refills given if needed. Past medical, surgical, social, and family history reviewed and updated as appropriate. Encouraged proper diet & exercise as well as compliance with taking medications. Age-appropriate health preventative measures were discussed. Return if symptoms worsen or fail to improve, for Keep next scheduled appointment.. Destini Lee APRN-MERARI documented in this encounter [facility] 01-23-2024 Miscellaneous Notes Patient calls and notified of provider recommendations below. Patient voices understanding. Carla Bejarano RN I am not familiar enough with Syfovre to know whether she would benefit from the injections, and whether the benefits outweigh the risks. My reference is Up to Date and the experts there noted reports of rare but serious vasculitis events with significant visual loss; therefore, those experts think that since there were not any studies that demonstrated benefit that would outweigh the risks of vision loss, they would not endorse the use of the injections of Syfovre. She needs to discuss with her eye doctor what their opinion is with regards to risk versus benefits, and if they think the shots are worth the risk, let her know what the risk of adverse effects is, and whether there are other options for her. With regards to the vitamins, I don't know specific vitamins to endorse one over another. Ideally get vitamins from the foods we eat, then supplement what we might not be able to get enough of from our diet. She could stay on current vitamins and we can discuss the vitamin she is considering at her appointment (can bring in the bottle) along with her other vitamin bottles.. Patient calls back and is asking if it is ok for her to take Balance of Nature Vitamins Fruit and Vegetables? And if patient does should she continue to take other vitamins? Please review and advise, Carla Bejarano RN Also see previous message regarding injection of eye. Patient calling and states that she see manpower development specialist for her macular degeneration. Patient states that specialist is recommending that she get Syfovre injections to her eyes. Patient is wanting to know Dr. Hayes thoughts on this and whether or not PCP thinks she should go ahead and start getting injections? Please review and advise, Carla Bejarano RN documented in this encounter [facility] 12-21-2023 History of Present illness Narrative POPULATION HEALTH NAVIGATION OUTREACH Action/FYI msg to schedule wellness Reason for Outreach Care Gap/HCC or Scheduling Wellness Visits Care Gaps due: Medicare Annual Wellness Visit Patient Contacted: Unable or unnecessary to reach patient: Left message Navigation Signature: Gauri Mcleod MA December 21, 2023 2:19 PM documented in this encounter [facility] 12-18-2023 History of Present illness Narrative Subjective: Patient presents to clinic c/o painful toenails. They state that the nails are especially painful with shoe gear and pressure. Patient states that nails 1-5 b/l are painful. No other pedal complaints at this time. Patient states no change in medications or medical history since last visit. Objective: Patient presents to clinic ambulating in sneakers Vasc: DP and PT pulses are palpable bilateral. CFT is less than 5 seconds bilateral. Skin temperature is warm to cool proximal to distal bilateral. There is no edema or varicosities noted. Neuro: Protective sensation is intact to the foot and toes when tested with the 5.07 SWM bilateral. Vibratory sensation is decreased at the hallux IPJ bilateral. The hallux is downgoing bilateral. Derm: Nails 1-5 b/l are painful, discolored-yellow, thick, crumbly, dystrophic and with subungal debris. Right hallux nail plate appears to have two layers. Skin is of normal turgor, texture and hair growth is decreased bilateral. There are no hyperkeratosis, ulcerations, scars, verruca or other lesions noted. Ortho: Muscle strength is 5/5 for all pedal groups tested. Ankle joint DF is decreased with the knee extended with no pain or crepitus noted. 1st MPJ ROM is decreased bilateral. Assessment: (B35.1) Onychomycosis (primary encounter diagnosis) (M79.675) Pain in toe of left foot (M79.674) Pain in toe of right foot Plan: Patient was seen and evaluated. Nails 1-5 bilateral were debrided in length and thickness. Small bleed to right hallux and treated with alcohol and band aide. I was able to manage to debride the 2nd layer of the nail plate of right hallux. Because of bleed, I was not able to use dremmel and I have asked that patient use [place] board to file Patient is to RTC in 3-4 months. Victoria Ashley DPM Patient presents with: Left Foot - Established Patient, Debridement of Nail Right Foot - Established Patient, Debridement of Nail documented in this encounter [facility] 12-10-2023 Miscellaneous Notes Spoke with patient. She is looking for more of an as needed medication. Not looking to take a daily medication. Advised her that what she is asking for (xanax) would require her to have a visit due to being a controlled substance. Patient understands this and states that she will think about it and call to schedule if she decides she wants to go that route. If the only symptom is overwhelmed by her circumstances, not sure Wellbutrin would help. There isn't a specific medication for treatment of being overwhelmed. Wellbutrin is for treatment of depression. Can either screen for depression with nurse asking her PHQ2 then PHQ9 if appropriate, or can come in for appointment to evaluate for depression to see whether Wellbutrin would be appropriate. Patient calls and states that she has been feeling overwhelmed with all that is going on in her life. Patient has been having a hard time since she has to rely on people more with her hip issues, falling/balance, and macular degeneration. Patient states that her friend takes Wellbutrin for her mild depression and she is wondering if that would help. Asked patient if she is feeling depressed or down, patient states that she is just feeling overwhelmed. 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 Please review and advise, Carla Bejarano RN documented in this encounter [facility] 11-30-2023 Instructions Adeel Hayes MD - 11/30/2023 10:40 AM EST Stay hydrated so no problems with blood pressure dropping and contributing to dizziness and falling. Take your time with standing then walking. Avoid pivoting. Do your exercises. BONE MINERAL DENSITY PATIENT INSTRUCTIONS ======= Bone mineral density testing measures the amount [...] you can resume your usual activities immediately. documented in this encounter [facility] 11-30-2023 History of Present illness Narrative This note was created using [employer]. Clari Li is a 78 year old female. Patient presents with: balance issues Fall: Patient reports having a couple falls and ortho advised for patient to follow up with PCP Fatigue: Patient reports not having any stamina SUBJECTIVE: Dodie Li is a 78 year old year old lady here today for follow up appointment for review of medical conditions: Falls and fatigue. Stopped taking Lunesta a couple months ago. Sleeping well without it. Doxepin effective. When falling, feels like someone was pushing her. Better compared to right after hip surgery. Happens when turns fasts and pivots. Feels like leg gives out. Started doing exercises to strengthen legs--this has helped. Lost HEP from PT done through Dr. Carmen. Has macular degeneration. Vision impairment noted. Will see ENT as she has scheduled for problems with falling. No overt vertigo noted. Asked for BMD order since not done yet though was ordered. PAST MEDICAL HISTORY Diagnosis Date Carpal tunnel syndrome Depressive disorder, not elsewhere classified Esophageal reflux Macular degeneration (senile) of retina, unspecified Myalgia and myositis, unspecified Obesity, unspecified Unspecified essential hypertension Current Outpatient Medications Medication Sig IHEIUOS-DMLPMKRLG-BVCE ORAL Take 1 tablet by mouth once daily. doxepin capsule 25 mg Take 1 capsule by mouth daily at bedtime. eszopiclone (LUNESTA) 1 mg tab Take 1 tablet by mouth at bedtime as needed for up to 90 days. (Patient taking differently: Take 1 mg by mouth at bedtime as needed. Patient reports using much less as she is falling asleep ok without it) Atenolol-Chlorthalidone 100-25 mg per tablet TAKE 1/2 TABLET ONE TIME DAILY potassium chloride ER (KLOR-CON M10) 10 mEq tablet Take 1 tablet by mouth two times a day. gemfibrozil (LOPID) 600 mg tablet Take 1 tablet by mouth two times a day. omeprazole (PRILOSEC) 20 mg capsule Take 1 capsule by mouth once daily. nystatin (MYCOSTATIN) powder Apply 1 application to affected area four times daily as needed (yeast infection). guaifenesin/dextromethorphan (MUCINEX DM ORAL) Take 1 tablet by mouth once daily as needed. fexofenadine (LETICIA) 60 mg tablet Take 60 mg by mouth once daily. polyethylene glycol 3350 (MIRALAX) 17 gram/dose powder Take 17 g by mouth once daily. aspirin, enteric coated (ASPIRIN, ENTERIC COATED) 81 mg EC tablet Take 81 mg by mouth once daily. cholecalciferol(VITAMIN D 2,000 UNIT CAP) Take by mouth. OMEGA 3 550 MG CAP Take one(1) tablet daily. TYLENOL EXTRA STRENGTH 500 MG ORAL TAB Take two(2) tablets every four(4) to six(6) hours as needed. omeprazole (PRILOSEC) 20 mg capsule Take 1 capsule by mouth once daily. (Patient not taking: Reported on 11/30/2023) CALCIUM + D 600 MG-200 UNIT ORAL TAB Take by mouth. (Patient not taking: Reported on 11/30/2023) No current facility-administered medications for this visit. Review of Systems Objective BP 108/68 Pulse 64 Resp 16 Wt 82.8 kg (182 lb 9.6 oz) SpO2 97% BMI 34.50 kg/m Physical Exam Constitutional: Appearance: Normal appearance. HENT: Head: Normocephalic. Eyes: Conjunctiva/sclera: Conjunctivae normal. Cardiovascular: Rate and Rhythm: Normal rate and regular rhythm. Heart sounds: Normal heart sounds. Pulmonary: Effort: Pulmonary effort is normal. Breath sounds: Normal breath sounds. Skin: General: Skin is warm and dry. Neurological: General: No focal deficit present. Mental Status: She is alert and oriented to person, place, and time. Comments: Able to get up and go in less than 12 seconds. Walks with cane. Small steps. Turns without instability Psychiatric: Mood and Affect: Mood normal. Behavior: Behavior normal. Thought Content: Thought content normal. Judgment: Judgment normal. Assessment and Plan Encounter Diagnosis ICD-10-CM 1. Gait instability R26.81 Will work on exercises for strength and stability. Using cane and states works better than walker. No quick moves discussed. Consider PT as needed 2. Status post right hip replacement Z96.641 Overall doing better since had surgery and did PT. Discussed still needs to do exercises to build up strength and stamina. 3. Asymptomatic postmenopausal status Z78.0 DXA-AXIAL SKELETON BD DXA TRABECULAR BONE SCORE (TBS) Above issues addressed with patient. Patient involved in shared decision making for management of medical issues. History and medications reviewed. Epic updated as needed Refills and/or prescriptions taken care of and meds adjusted as indicated after reviewed history, exam and labs. Health Maintenance reviewed. Updated record and/or ordered tests as recorded. Encouraged on efforts at healthy diet and regular exercise and adequate sleep. Needs to keep working on diet and exercise with lifestyle changes for effective weight loss as well as prevention of DM, and control of BP and lipids. Discussed weight loss can help with orthopedic issues with hips and knees. Encouraged physical therapy to help with balance and gait issues. She does not drive, and relies on friends to help provide transportation. States that if did PT. would need to be home PT. (Note that patient discussed problems with gait instability and falling with Dr. Carmen, and he recommended home PT; see telephone encounter.) Recommended she get HEP from PT (done at [facility]) to help with improving strength and stamina s/p right hip replacement. Further evaluation and treatment as indicated. I spent a total of 32 minutes on the date of the service which included completing clinical documentation, obtaining and/or reviewing separately obtained history, performing a medically appropriate examination, and counseling and educating the patient/family/caregiver. Adeel Hayes MD documented in this encounter [facility] 11-14-2023 Miscellaneous Notes Pt notified that letter has been sent to her home address as requested, pt voiced understanding. Janet Frias LPN Signed letter mailed to patients home address as instructed. TC to patient with no answer. Left VM to return call to office. GLORIA Swanson I wrote this letter and will print and sign, can we please mail it. Thank you! Pt reports she is unable to walk to her mailbox d/t unsteady gait from hip replacement. Reports it's too far away. Reports the person who always brought her her mail is having surgery and will no longer be able to bring it to her. Reports [employer] tells her if her doctor writes a letter stating pt unable to walk to her mailbox, they will deliver it to her door. Asking if pcp would write a letter and mail to her via [employer]. Address verified. documented in this encounter [facility] 09-18-2023 Instructions Adeel Hayes MD - 09/18/2023 10:57 AM EST Options for antifungal powders: Zeasorb Possibly GoldBond [place] cornstarch powder every day to keep area dry can help If doing home exercise plan from physical therapy for the hip does not help with balance issues, let me know so can refer for physical therapy for balance issues. BONE MINERAL DENSITY PATIENT INSTRUCTIONS ======= Bone mineral density testing measures the amount [...] you can resume your usual activities immediately. documented in this encounter [facility] 09-18-2023 History of Present illness Narrative This note was created using [employer]. Subjective Dodie Li is a 78 year old female. Patient presents with: F/U 6 months SUBJECTIVE: Dodie Li is a 78 year old year old lady here today for 6 month follow up appointment for review of medical conditions. Noted decreased hearing. Been gradual. 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 Noted skin lesion on left forehead wanted rechecked. No obvious change noted by her. Right groin area--still itches. Hard to see if rash. Eyesight issues. Using Cortaid or similar for itch. Stopped taking Lunesta for a couple weeks. Just needed once a while since stopped. Was getting too tired till stopped. Just needing quarter of a tablet. PAST MEDICAL HISTORY Diagnosis Date Carpal tunnel syndrome Depressive disorder, not elsewhere classified Esophageal reflux Macular degeneration (senile) of retina, unspecified Myalgia and myositis, unspecified Obesity, unspecified Unspecified essential hypertension Current Outpatient Medications Medication Sig eszopiclone (LUNESTA) 3 mg tab Take 0.25 tablets by mouth at bedtime as needed. nystatin (MYCOSTATIN) powder Apply 1 application to affected area four times daily as needed (yeast infection). omeprazole (PRILOSEC) 20 mg capsule Take 1 capsule by mouth once daily. gemfibrozil (LOPID) 600 mg tablet Take 1 tablet by mouth twice daily. potassium chloride ER (K-DUR, KLOR-CON M10) 10 mEq tablet Take 1 tablet by mouth twice daily. Atenolol-Chlorthalidone 100-25 mg per tablet TAKE 1/2 TABLET ONE TIME DAILY guaifenesin/dextromethorphan (MUCINEX DM ORAL) Take 1 tablet by mouth once daily as needed. fexofenadine (LETICIA) 60 mg tablet Take 60 mg by mouth once daily. polyethylene glycol 3350 (MIRALAX) 17 gram/dose powder Take 17 g by mouth once daily. aspirin, enteric coated (ASPIRIN, ENTERIC COATED) 81 mg EC tablet Take 81 mg by mouth once daily. cholecalciferol(VITAMIN D 2,000 UNIT CAP) Take by mouth. OMEGA 3 550 MG CAP Take one(1) tablet daily. CALCIUM + D 600 MG-200 UNIT ORAL TAB Take by mouth. TYLENOL EXTRA STRENGTH 500 MG ORAL TAB Take two(2) tablets every four(4) to six(6) hours as needed. doxepin capsule 25 mg Take 1 capsule by mouth daily at bedtime. omeprazole (PRILOSEC) 20 mg capsule Take 1 capsule by mouth once daily. (Patient not taking: Reported on 09/18/2023) No current facility-administered medications for this visit. Review of Systems Objective BP (P) 120/62 Pulse 61 Temp 36.7 C (98 F) Resp 18 Wt 83.9 kg (185 lb) SpO2 97% BMI 34.96 kg/m Last 5 Encounter Wt Readings: Date: Wt: 09/18/2023 83.9 kg (185 lb) 03/10/2023 82.5 kg (181 lb 12.8 oz) 11/17/2022 0 kg () 10/04/2022 0 kg () 09/18/2022 83.2 kg (183 lb 6.4 oz) No waist measurement recorded Estimated body mass index is 34.96 kg/m as calculated from the following: Height as of 11/10/19: 154.9 cm (5' 1). Weight as of this encounter: 83.9 kg (185 lb). Last 5 Encounter BP Readings: Date: BP: 03/10/2023 130/76 11/17/2022 136/74 10/04/2022 126/78 09/28/2022 138/82 09/18/2022 124/72 Physical Exam Constitutional: Appearance: Normal appearance. She is obese. HENT: Head: Normocephalic. Right Ear: Tympanic membrane, ear canal and external ear normal. Left Ear: Tympanic membrane, ear canal and external ear normal. Eyes: Conjunctiva/sclera: Conjunctivae normal. Cardiovascular: Rate and Rhythm: Normal rate and regular rhythm. Heart sounds: Normal heart sounds. Pulmonary: Effort: Pulmonary effort is normal. Breath sounds: Normal breath sounds. Musculoskeletal: Right lower leg: No edema. Left lower leg: No edema. Skin: General: Skin is warm and dry. Comments: Noted large skin tag lower mid back. Benign appearing. Not irritated. Noted SK Left forehead near frontal hairline. No bright red rash in right groin area. Some mild pink discoloration (looks like from prior rash healing). Neurological: General: No focal deficit present. Mental Status: She is alert and oriented to person, place, and time. Psychiatric: Mood and Affect: Mood normal. Behavior: Behavior normal. Thought Content: Thought content normal. Judgment: Judgment normal. Labs usually done in the summer: Component Latest Ref Rng & Units 01/18/2022 03/24/2022 03/09/2023 Protein, Total 6.3 - 8.0 g/dL 7.3 7.4 Albumin 3.9 - 4.9 g/dL 4.5 4.5 Calcium 8.5 - 10.2 mg/dL 9.4 10.1 9.7 Bilirubin, Total 0.2 - 1.3 mg/dL 0.3 0.3 Alkaline Phosphatase 34 - 123 U/L 68 63 AST 13 - 35 U/L 23 22 ALT 7 - 38 U/L 12 12 Glucose 74 - 99 mg/dL 84 95 92 BUN 7 - 21 mg/dL 21 17 25 (H) Creatinine 0.58 - 0.96 mg/dL 0.68 0.66 0.74 Sodium 136 - 144 mmol/L 139 140 140 Potassium 3.7 - 5.1 mmol/L 3.3 (L) 3.5 (L) 3.9 Chloride 97 - 105 mmol/L 101 101 103 CO2 22 - 30 mmol/L 27 26 26 Anion Gap 9 - 18 mmol/L 11 13 11 eGFR >=60 mL/min/1.73m 91 92 84 WBC 3.70 - 11.00 k/uL 6.46 5.69 RBC 3.90 - 5.20 m/uL 4.45 4.19 Hemoglobin 11.5 - 15.5 g/dL 13.3 12.6 Hematocrit 36.0 - 46.0 % 41.6 39.4 MCV 80.0 - 100.0 fL 93.5 94.0 MCH 26.0 - 34.0 pg 29.9 30.1 MCHC 30.5 - 36.0 g/dL 32.0 32.0 RDW-CV 11.5 - 15.0 % 12.5 12.2 Platelet Count 150 - 400 k/uL 290 239 MPV 9.0 - 12.7 fL 10.5 10.5 Absolute nRBC <0.01 k/uL <0.01 <0.01 Cholesterol, Total <200 mg/dL 155 166 Triglyceride <150 mg/dL 78 65 HDL Cholesterol >39 mg/dL 50 46 Non HDL Cholesterol <130 mg/dL 105 120 Fasting Time hrs 13 12 VLDL Cholesterol <30 mg/dL 16 13 TC:HDL Ratio <5.10 3.10 3.61 LDL Cholesterol <100 mg/dL 89 107 (H) LDL:HDL Ratio <2.54 1.78 2.33 Vitamin D 25 Hydroxy 31.0 - 80.0 ng/mL 42.3 35.4 Magnesium 1.7 - 2.3 mg/dL 2.2 Assessment and Plan Encounter Diagnosis ICD-10-CM 1. Persistent disorder of initiating or maintaining sleep G47.00 doxepin capsule 25 mg eszopiclone (LUNESTA) 1 mg tab insomnia controlled with current meds. Continue same. 2. Essential hypertension I10 COMP METABOLIC PANEL CBC LIPID PANEL BASIC Fair control. Continue present management 3. Vitamin D deficiency E55.9 COMP METABOLIC PANEL VITAMIN D 25 HYDROXY Noted level down from last time. Continue supplement and adjust dose as needed 4. Hypokalemia E87.6 COMP METABOLIC PANEL Potassium now in normal range. Continue present management 5. Hypertriglyceridemia E78.1 LIPID PANEL BASIC Well controlled. Continue present management 6. Encounter for long-term current use of medication Z79.899 COMP METABOLIC PANEL MAGNESIUM BLD CBC LIPID PANEL BASIC VITAMIN D 25 HYDROXY 7. Need for shingles vaccine Z23 SHINGRIX PRINTED PHARMACY INSTRUCTIONS 8. Asymptomatic postmenopausal status Z78.0 DXA-AXIAL SKELETON BD DXA TRABECULAR BONE SCORE (TBS) 9. Encounter for immunization Z23 INFLUENZA VACCINE, PRSV FREE, AGE 65+ YR, HIGH DOSE, QUADRIVALENT (FLUZONE HIGH-DOSE) 10. Bilateral hearing loss, unspecified hearing loss type H91.93 Plans to go to [facility]. Above issues addressed with patient. Patient involved in shared decision making for management of medical issues. History and medications reviewed. Epic updated as needed Refills and/or prescriptions taken care of and meds adjusted as indicated after reviewed history, exam and labs. Health Maintenance reviewed. Updated record and/or ordered tests as recorded. Encouraged on efforts at healthy diet and regular exercise and adequate sleep. Plans to go to [facility] for hearing aid assessment. Adeel Hayes MD documented in this encounter [facility] 09-03-2023 History of Present illness Narrative Subjective: Patient presents to clinic c/o painful toenails. They state that the nails are especially painful with shoe gear and pressure. Patient states that nails 1-5 b/l are painful. No other pedal complaints at this time. Patient states no change in medications or medical history since last visit. Objective: Patient presents to clinic ambulating in sneakers Vasc: DP and PT pulses are faintly palpable bilateral. CFT is less than 5 seconds bilateral. Skin temperature is warm to cool proximal to distal bilateral. There is no edema or varicosities noted. Neuro: Protective sensation is intact to the foot and toes when tested with the 5.07 SWM bilateral. Vibratory sensation is decreased at the hallux IPJ bilateral. The hallux is downgoing bilateral. Derm: Nails 1-5 b/l are painful, discolored-yellow, thick, crumbly, dystrophic and with subungal debris. Skin is of normal turgor, texture and hair growth is presnet bilateral. There are no hyperkeratosis, ulcerations, scars, verruca or other lesions noted. Ortho: Muscle strength is 5/5 for all pedal groups tested. Ankle joint DF is full with the knee extended with no pain or crepitus noted. 1st MPJ ROM is full bilateral. Assessment: (B35.1) Onychomycosis (primary encounter diagnosis) (M79.675) Pain in toe of left foot (M79.674) Pain in toe of right foot Plan: Patient was seen and evaluated. Nails 1-5 bilateral were debrided in length and thickness. Patient is to RTC in 3-4 months. Victoria Ashley DPM AMB ROOMING INTAKE FLOWSHEET DATA Patient presents with: Left Foot - Established Patient, Follow Up, nail care Right Foot - Established Patient, Follow Up, nail care Sabina Briseno LPN documented in this encounter [facility] 08-14-2023 Miscellaneous Notes Pt calling in stating there was some confusion on her omeprazole refill and was wondering if office got it straightened out. Did not see anything regarding this. Advised pt rx was sent to [facility] on 08/07. Pt states pharm had mentioned a medication on her message that was a P R I something advised her that Prilosec is the brand name for omeprazole and that was what they were probably referring to. She verbalizes understanding and will check with them to make sure they got rx and will be sending it to her. Pt states she has been having some hearing issues and was advised that wax removal was covered if pcp office does it. Wnating to know if that could be done at her f/u appointment in Sep vs scheduling with ENT. Advised her this could be done at ov and to just mention it at visit. Pt verbalizes understanding. Staci Botello LPN documented in this encounter [facility] 08-07-2023 Miscellaneous Notes Date of last office: 03/10/2023 Date of next office visit: 09/18/2023 Requested Prescriptions Pending Prescriptions Disp Refills omeprazole (PRILOSEC) 20 mg capsule 90 capsule 3 Sig: Take 1 capsule by mouth once daily. Date of Last Labs: 03/09/2023 Please advise. Thank you. Carla Bejarano RN. documented in this encounter [facility] 06-08-2023 Miscellaneous Notes The following approved medication requests have been transmitted electronically. Requested Prescriptions Signed Prescriptions Disp Refills ALPRAZolam (XANAX) 0.5 mg tablet 30 tablet 0 Sig: Take 0.5-1 tablets by mouth once daily as needed for anxiety for up to 90 days. Authorizing Provider: ADEEL HAYES MD Patient phones requesting refills as follows: Requested Prescriptions Pending Prescriptions Disp Refills ALPRAZolam (XANAX) 0.5 mg tablet 30 tablet 0 Sig: Take 0.5-1 tablets by mouth once daily as needed for anxiety for up to 90 days. [facility] 03/10/23 NOV 09/18/23 Please review and advise. Jared Benedict LPN documented in this encounter [facility] 05-21-2023 History of Present illness Narrative Consultation requested by Dr. Otto for an opinion regarding toenail deformity. My final recommendations will be communicated back to the requesting physician by way of shared Medical record or letter to requesting physician via US mail. Initial Podiatric Office Visit: Chief Complaint: This 77 year old female who presents with chief complaint:left great toenail deformity HPI Patient presents to clinic for evaluation of left great toe She has thick deformed toenail of the left hallux that does grow against the left 2nd toe and caused her some discomfort She does report hving ingrown in the past on both great toenails and these were treated in the past with partial nail removal. She is here to discuss options. PAIN EVALUATION No data found in the last 1 encounters. Hemoglobin A1C (%) Date Value 05/19/2020 5.6 07/17/2019 5.3 02/06/2019 5.4 08/06/2018 5.5 02/01/2018 5.5 PCP: Adeel Hayes MD PAST MEDICAL HISTORY Diagnosis Date Carpal tunnel syndrome Depressive disorder, not elsewhere classified Esophageal reflux Macular degeneration (senile) of retina, unspecified Myalgia and myositis, unspecified Obesity, unspecified Unspecified essential hypertension Current Outpatient Medications Medication Sig nystatin (MYCOSTATIN) powder Apply 1 application to affected area four times daily as needed (yeast infection). eszopiclone (LUNESTA) 3 mg tab Take 1 tablet by mouth at bedtime as needed for up to 180 days. AT BEDTIME. doxepin capsule 25 mg Take 1 capsule by mouth daily at bedtime. omeprazole (PRILOSEC) 20 mg capsule Take 1 capsule by mouth once daily. gemfibrozil (LOPID) 600 mg tablet Take 1 tablet by mouth twice daily. potassium chloride ER (K-DUR, KLOR-CON M10) 10 mEq tablet Take 1 tablet by mouth twice daily. Atenolol-Chlorthalidone 100-25 mg per tablet TAKE 1/2 TABLET ONE TIME DAILY guaifenesin/dextromethorphan (MUCINEX DM ORAL) Take 1 tablet by mouth once daily. fexofenadine (LETICIA) 60 mg tablet Take 60 mg by mouth once daily. polyethylene glycol 3350 (MIRALAX) 17 gram/dose powder Take 17 g by mouth once daily. aspirin, enteric coated (ASPIRIN, ENTERIC COATED) 81 mg EC tablet Take 81 mg by mouth once daily. cholecalciferol(VITAMIN D 2,000 UNIT CAP) Take by mouth. OMEGA 3 550 MG CAP Take one(1) tablet daily. CALCIUM + D 600 MG-200 UNIT ORAL TAB Take by mouth. TYLENOL EXTRA STRENGTH 500 MG ORAL TAB Take two(2) tablets every four(4) to six(6) hours as needed. No current facility-administered medications for this visit. ALLERGIES Allergen Reactions Amoxicillin Rash Asa [Salicylates] if not coated Flagyl [Metronidazo* Lisinopril Penicillins Rash PAST SURGICAL HISTORY Procedure Laterality Date PAST SURGICAL HISTORY OF wrist surgery right in [place] PAST SURGICAL HISTORY OF wrist surgery left in [place] PAST SURGICAL HISTORY OF fissurectomy PAST SURGICAL HISTORY OF Right Hip replacement FAMILY HISTORY Problem Relation Age of Onset Diabetes Mother Cancer Mother stomach Macular Degen Mother Cataract Mother Heart Father cad Hypertension Father Glaucoma Other cousin and GM Social History Tobacco Use Smoking status: Never Smokeless tobacco: Never Vaping Use Vaping Use: Never used Substance Use Topics Alcohol use: No Drug use: No REVIEW OF SYSTEMS GENERAL: Negative for Malaise, significant weight loss, fever RESPIRATORY: Negative for cough, wheezing and shortness of breath CARDIOVASCULAR: Negative for chest pain, leg swelling and palpitations GI: Negative for abdominal discomfort, blood in stools or black stools and change in bowel habits : Negative for dysuria, frequency and incontinence MUSCULOSKELETAL: Negative for joint pain or swelling, back pain, and muscle pain. SKIN: Negative for lesions, rash, and itching. HEMATOLOGY/LYMPHOLOGY Negative for prolonged bleeding, bruising easily, and swollen nodes. ENDOCRINE: Negative for cold or heat intolerance, polyuria, polydipsia and goiter. NEURO: negative Physical Exam: Constitutional: Pt is a well developed 77 year old female who is alert, oriented and cooperative Eyes: Following during examination. No redness or drainage. Respiratory: RR normal and nonlabored. Even breathing. No evidence of distress or shortness of breath. Psychology: Patient is engaged during conversation. Normal affect and mood. Does not appear depressed or anxious during encounter. Vascular: Dorsalis pedis and posterior tibial pulses palpable as b/l Capillary Fill time < 5 seconds to digits 1-5 b/l Skin temperature warm to warm proximal to distal b/l Hair growth present to digits Neurological: intact light touch/epicritic sensation Vibratory sensation intact to hallux b/l intact protective sensation no significant neurological deficits Dermatological: Nails 1-5 b/l appear elongated, thick painful. Left great toenail is severely dystrophic. Webspaces clean and dry 1-4 b/l. Skin appears well hydrated and supple. good color, texture, turgor. No open lesions present. No callosities present. Musculoskeletal/Orthopaedic: Patient has pain to palpation of left hallux toenail Radiographs: n/a ASSESSMENT: (B35.1) Onychomycosis (primary encounter diagnosis) (L60.8) Toenail deformity (M79.675) Pain in toe of left foot (M79.674) Pain in toe of right foot PLAN: A review of the patient's PMH and Podiatric physical exam was completed. We discussed the possible etiologies of discolored, dystrophic, and thickened nails including fungus, yeast, mold as well as in some instances, prior trauma, or mechanical causes such as repetitive microtrauma in shoe gear. We discussed topical medication for discolored toenails which has very low success but no major side effects. We discussed oral medication. Patient will need hepatic testing prior to use. Patient informed of risks associated with Lamisil. We discussed removal of toenails. Patient would like to proceed with debridement Debridement of toenails 1-5 b/l was performed. She is not interested in removal. Victoria Ashley DPM Podiatry [address] [facility] [id number] Dept: [phone] Dept Patient presents with: Left Foot - New Right Foot - New Patient reports no pain at this time. She reports having previous ingrown great toe nails treated by another provider. documented in this encounter [facility] 03-26-2023 Miscellaneous Notes OK, please schedule Patient calls and states that she continues to have issues with her left big toe nail. Patient states that it is not growing right. Patient asking for a podiatry referral to Dr. Ashley to discuss this. Patient had see Dr. Ashley in 2018 for this issue. Please review and advise, Carla Bejarano RN documented in this encounter [facility] 03-10-2023 History of Present illness Narrative This note was created using [employer]. Subjective Dodie Li is a 77 year old female. Patient presents with: Follow Up SUBJECTIVE: Dodie Li is a 77 year old year old lady here today for follow up appointment for review of medical conditions. Gradually losing weight with eatin 1 main meal and 1 light snack. Noted left great toenail got thickened again. Hurts if gets snagged on things. Right not so thickened. Recovering from CTS surgery. Still some numbness in fingers. has follow up. Still needs sleep meds. Has skin tag lower midback--not causing any problems. Soft and nontener. Mobile. Has SK right anterior thigh upper part laterally. Sometimes gets itchy. PAST MEDICAL HISTORY Diagnosis Date Carpal tunnel syndrome Depressive disorder, not elsewhere classified Esophageal reflux Macular degeneration (senile) of retina, unspecified Myalgia and myositis, unspecified Obesity, unspecified Unspecified essential hypertension Current Outpatient Medications Medication Sig omeprazole (PRILOSEC) 20 mg capsule Take 1 capsule by mouth once daily. gemfibrozil (LOPID) 600 mg tablet Take 1 tablet by mouth twice daily. potassium chloride ER (K-DUR, KLOR-CON M10) 10 mEq tablet Take 1 tablet by mouth twice daily. Atenolol-Chlorthalidone 100-25 mg per tablet TAKE 1/2 TABLET ONE TIME DAILY guaifenesin/dextromethorphan (MUCINEX DM ORAL) Take 1 tablet by mouth once daily. doxepin capsule 25 mg Take 1 capsule by mouth daily at bedtime. fexofenadine (LETICIA) 60 mg tablet Take 60 mg by mouth once daily. polyethylene glycol 3350 (MIRALAX) 17 gram/dose powder Take 17 g by mouth once daily. aspirin, enteric coated (ASPIRIN, ENTERIC COATED) 81 mg EC tablet Take 81 mg by mouth once daily. cholecalciferol(VITAMIN D 2,000 UNIT CAP) Take by mouth. OMEGA 3 550 MG CAP Take one(1) tablet daily. CALCIUM + D 600 MG-200 UNIT ORAL TAB Take by mouth. TYLENOL EXTRA STRENGTH 500 MG ORAL TAB Take two(2) tablets every four(4) to six(6) hours as needed. nystatin 1 billion unit powd 1 application three times daily as needed. (Patient not taking: Reported on 03/10/2023) gemfibrozil (LOPID) 600 mg tablet Take 1 tablet by mouth twice daily. No current facility-administered medications for this visit. Review of Systems Objective BP 130/76 (BP Site: Left Arm, BP Position: Sitting, BP Cuff Size: Large Adult) Pulse 60 Resp 16 Wt 82.5 kg (181 lb 12.8 oz) BMI 34.35 kg/m Last 5 Encounter Wt Readings: Date: Wt: 03/10/2023 82.5 kg (181 lb 12.8 oz) 11/17/2022 0 kg () 10/04/2022 0 kg () 09/18/2022 83.2 kg (183 lb 6.4 oz) 08/14/2022 83.5 kg (184 lb) No waist measurement recorded Estimated body mass index is 34.35 kg/m as calculated from the following: Height as of 11/10/19: 154.9 cm (5' 1). Weight as of this encounter: 82.5 kg (181 lb 12.8 oz). Last 5 Encounter BP Readings: Date: BP: 03/10/2023 130/76 11/17/2022 136/74 10/04/2022 126/78 09/28/2022 138/82 09/18/2022 124/72 Physical Exam Constitutional: Appearance: Normal appearance. She is obese. HENT: Head: Normocephalic. Eyes: Conjunctiva/sclera: Conjunctivae normal. Cardiovascular: Rate and Rhythm: Normal rate and regular rhythm. Heart sounds: Normal heart sounds. Pulmonary: Effort: Pulmonary effort is normal. Breath sounds: Normal breath sounds. Skin: General: Skin is warm and dry. Comments: Skin a little pink in right groin area. No open sores. No weepy Neurological: General: No focal deficit present. Mental Status: She is alert and oriented to person, place, and time. Psychiatric: Mood and Affect: Mood normal. Behavior: Behavior normal. Thought Content: Thought content normal. Judgment: Judgment normal. Component Latest Ref Rng & Units 03/01/2021 01/18/2022 03/24/2022 03/09/2023 WBC 3.70 - 11.00 k/uL 6.99 6.46 5.69 RBC 3.90 - 5.20 m/uL 4.39 4.45 4.19 Hemoglobin 11.5 - 15.5 g/dL 13.1 13.3 12.6 Hematocrit 36.0 - 46.0 % 40.0 41.6 39.4 MCV 80.0 - 100.0 fL 91.1 93.5 94.0 MCH 26.0 - 34.0 pg 29.8 29.9 30.1 MCHC 30.5 - 36.0 g/dL 32.8 32.0 32.0 RDW-CV 11.5 - 15.0 % 12.8 12.5 12.2 Platelet Count 150 - 400 k/uL 272 290 239 MPV 9.0 - 12.7 fL 10.8 10.5 10.5 Neut% % 57.2 Abs Neut (ANC) 1.45 - 7.50 k/uL 3.98 Lymph% % 30.2 Abs Lymph 1.00 - 4.00 k/uL 2.11 [place]% % 8.0 Abs [place] <0.87 k/uL 0.56 Eosin% % 4.0 Abs Eosin <0.46 k/uL 0.28 Baso% % 0.6 Abs Baso <0.11 k/uL 0.04 Nucleated Reds 0 /100 WBC 0.0 Absolute nRBC <0.01 k/uL <0.01 <0.01 <0.01 Diff Type Auto Diff Protein, Total 6.3 - 8.0 g/dL 7.5 7.3 7.4 Albumin 3.9 - 4.9 g/dL 4.6 4.5 4.5 Calcium 8.5 - 10.2 mg/dL 9.6 9.4 10.1 9.7 Bilirubin, Total 0.2 - 1.3 mg/dL 0.4 0.3 0.3 Alkaline Phosphatase 34 - 123 U/L 69 68 63 AST 13 - 35 U/L 22 23 22 Glucose 74 - 99 mg/dL 88 84 95 92 BUN 7 - 21 mg/dL 20 21 17 25 (H) Creatinine 0.58 - 0.96 mg/dL 0.62 0.68 0.66 0.74 Sodium 136 - 144 mmol/L 138 139 140 140 Potassium 3.7 - 5.1 mmol/L 4.1 3.3 (L) 3.5 (L) 3.9 Chloride 97 - 105 mmol/L 103 101 101 103 CO2 22 - 30 mmol/L 26 27 26 26 Anion Gap 9 - 18 mmol/L 9 11 13 11 ALT 7 - 38 U/L 15 12 12 eGFR- >60 eGFR-All Other Races . >60 eGFR >=60 mL/min/1.73m 91 92 84 Cholesterol, Total <200 mg/dL 146 155 166 Triglyceride <150 mg/dL 56 78 65 HDL Cholesterol >39 mg/dL 50 50 46 LDL Cholesterol <100 mg/dL 85 89 107 (H) Non HDL Cholesterol <130 mg/dL 96 105 120 Fasting Time hrs 12 13 12 VLDL Cholesterol <30 mg/dL 11 16 13 TC:HDL Ratio <5.10 2.92 3.10 3.61 LDL:HDL Ratio <2.54 1.70 1.78 2.33 Vitamin D 25 Hydroxy 31.0 - 80.0 ng/mL 40.7 42.3 35.4 Magnesium 1.7 - 2.3 mg/dL 2.2 Assessment and Plan Encounter Diagnosis ICD-10-CM 1. 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 Candidal intertrigo B37.2 nystatin (MYCOSTATIN) powder 3. Essential hypertension I10 4. Class 1 obesity due to excess calories without serious comorbidity with body mass index (BMI) of 34.0 to 34.9 in adult E66.09 Z68.34 5. Screening for colon cancer Z12.11 FECAL OCCULT BLOOD TEST Above issues addressed with patient. Patient involved in shared decision making for management of medical issues.Further evaluation and treatment as indicated. History and medications reviewed. Epic updated as needed Refills and/or prescriptions taken care of and meds adjusted as indicated after reviewed history, exam and labs. Health Maintenance reviewed. Updated record and/or ordered tests as recorded. Encouraged on efforts at healthy diet and regular exercise and adequate sleep. Needs to keep working on diet and exercise with lifestyle changes for effective weight loss as well as prevention of DM, and control of BP and lipids. Doing well with gradual weight loss. Stable with control of insomnia with Lunesta. Tried other meds before but Lunesta was the effective med. At this time benefits outweigh risks. Continue to monitor for adverse effects and indications for decreasing dose or tapering off. Further evaluation and treatment as indicated. No signs of diversion or abuse of medication(s); no adverse effects. Continue present management. Can follow up with hired help as needed for thickened toenails. Adeel Hayes MD documented in this encounter [facility] 03-08-2023 Miscellaneous Notes Patient notified of providers message and verbalized understanding. Those doses are fine. Okay to order those and take 1 daily or each Vitamin. Pt calls to report it was mentioned to her that is would be good for her to take Vit B6 and Vit B12. Pt reports she can order those herself B6 is 100mg and B12 is 500 mg. Pt is asking if it is ok for her to take these and what is the best dose to take. Please review and advise. Winifred Calixto LPN documented in this encounter [facility] 02-12-2023 Miscellaneous Notes Patient notified of providers message and verbalized understanding. She can take MiraLAX tonight. If no BM by morning okay to take a second dose. Then if continuing on pain medications with recommend continuing with MiraLAX once or twice daily as needed until regular bowel movements occur. She should let us know if any additional concerns or if not working. ER for any severe or concerning symptoms advised. She may want to let her surgeon know as well. Can schedule a follow up visit here inf needed. Patient calling she had carpal tunnel surgery last week and was taking pain medication that got her constipated. Patient said one of her friends helped her with an enema last night which did help some, but she knows she still has stool there. Patient is asking what can she take to help with the constipation? Patient said she has Miralax and Bisacodyl at home. She will not use either until she gets call back from the office. Patient said she is taking tylenol for pain now to avoid the problem again. Please advise documented in this encounter [facility] 02-01-2023 Miscellaneous Notes Patient suspects she has a bug bite but not sure. Area improved after using AB ointment, A & D ointment, and benadryl for 3 days. States she is unable to come in for appt, and the area is improved from home care treatments. Patient agreeable to call back if are worsens or does not improve, to schedule appt. Reason for Disposition All other insect bites Answer Assessment - Initial Assessment Questions 1. TYPE of INSECT: Doesn't know- not even sure if it's a bug bite. 2. ONSET: 1 week ago looked like a little pimple. 3. LOCATION: Left arm. Upper. 4. REDNESS: Red area approx size of half dollar, started a week ago 5. PAIN: No 6. ITCHING: No. Was itchy in the beginning but not now. 7. SWELLING: Very mild swelling-almost as big as red area. Not swollen much. 8. OTHER SYMPTOMS: No other s/s. Took benadryl for 3 days. Seems to be helping- reddness is less. Using A & D ointment. Using triple AB. Bite santos area has improved and a little bit less. Forming a scab now. 9. : No Protocols used: Insect [id number] documented in this encounter [facility] 01-08-2023 Procedure note [facility] 12-20-2022 Miscellaneous Notes The following approved medication requests have been transmitted electronically. Requested Prescriptions Signed Prescriptions Disp Refills omeprazole (PRILOSEC) 20 mg capsule 90 capsule 3 Sig: Take 1 capsule by mouth once daily. Authorizing Provider: ADEEL HAYES MD Patient calls and states that she had changed mail orders pharmacies. Patient asking if this can be sent to [facility] Last Office Visit: 10/04/2022 Future Office Visit: 04/02/2023 Requested Prescriptions Pending Prescriptions Disp Refills omeprazole (PRILOSEC) 20 mg capsule 90 capsule 3 Sig: Take 1 capsule by mouth once daily. Date of Last Labs: 01/18/2022 documented in this encounter [facility] 12-12-2022 Miscellaneous Notes Pt reports she has a new insurance so now has a new mail-in Pharmacy. Pt asking for rx to be sent to [facility]. Patient has been identified by name and date of : Yes Requested Prescriptions Pending Prescriptions Disp Refills gemfibrozil (LOPID) 600 mg tablet 180 tablet 3 Sig: Take 1 tablet by mouth twice daily. potassium chloride ER (K-DUR, KLOR-CON M10) 10 mEq tablet 180 tablet 3 Sig: Take 1 tablet by mouth twice daily. Atenolol-Chlorthalidone 100-25 mg per tablet 45 tablet 3 Sig: TAKE 1/2 TABLET ONE TIME DAILY RX INSTRUCTIONS: Patient aware RX will be sent to pharmacy. No need to notify patient. Winifred Calixto LPN documented in this encounter [facility] 11-24-2022 Miscellaneous Notes Call placed to patient and provider message reviewed. Patient verbalizes understanding. Patient will taken an extra dose of tylenol ES only on therapy days which is two days a week and avoid NSAIDs for now until discusses with ortho. Daniela Gordon RN If pain not controlled with 3000mg per day, may take up to 4000mg per day a few days a week but avoid taking max amount routinely Not sure which medical history ortho was referring to regarding avoiding NSAIDs, but until clarify, avoid for now. Patient calling back for provider response. This nurse recommended patient follow instructions on Tylenol bottle and take no more than recommended 3000 mg daily. She is asking if she can also take Ibuprofen? ORTHO did not recommend this due to her medical history. Soraya Benton RN Patient calls to ask provider opinion on tylenol dosage. Patient was told to take tylenol 1000 mg every 6 hours for pain related to her broken arm by [facility]. The bottle she was given reads not to take more than 6 pills a day. Patient will be taking tylenol until approximately January 08 when she has her nerve conduction test done. Patient would like to know from provider if she should be taking a max dose of 6 pills or 8 pills a day? Patient is more comfortable asking provider d/t provider knows patient history. Please review and advise, Daniela Gordon RN documented in this encounter [facility] 11-18-2022 Miscellaneous Notes Patient called and given provider's message below. Meredith Varela RN Attempted to contact patient with reply below. Line busy. Please try patient again. Meredith Varela RN Okay ibuprofen--see if 400 mg (2 tablets of OTC 200mg pills) along with Tylenol 500 mg up to every 6 hours helps with the pain control Make sure to stay hydrated for kidney protection Pt reports she started PT last week for therapy for broken R arm/wrist. Pt report she took Tylenol before for pain but pt reports Tylenol is not helping at all. Pt reports the pain is a constant 5 and pain increases in the evening. Pt reports pain is really bad after PT sessions. Pt asks if she can take ibuprofen and if so how much. Or is there something else that she can take for pain. Please review and advise. Winifred Calixto LPN documented in this encounter [facility] 11-17-2022 History of Present illness Narrative Images from the original note were not included. Subjective The history is provided by the patient. No speech language pathology assistant was used. HPI Dodie Li is a 77 year old female who presents today for CC of possible yeast infection. Patient was treated by PCP for tinea cruris by PCP with fluconazole and topical for 2 weeks. She states she still feel a little itching and wants to see if still there. She has not used any treatment. BP 136/74 Pulse 68 Temp 36.6 C (97.8 F) (Tympanic) Resp 18 SpO2 96% Social History Tobacco Use Smoking status: Never Smokeless tobacco: Never Substance Use Topics Alcohol use: No Drug use: No PAST MEDICAL HISTORY Diagnosis Date Carpal tunnel syndrome Depressive disorder, not elsewhere classified Esophageal reflux Macular degeneration (senile) of retina, unspecified Myalgia and myositis, unspecified Obesity, unspecified Unspecified essential hypertension I have confirmed and edited as necessary, the [facility] Review of Systems Constitutional: Negative for chills and fever. Musculoskeletal: Negative for joint pain and myalgias. Skin: Positive for itching and rash. All other systems reviewed and are negative. Objective Physical Exam Vitals and nursing note reviewed. Pulmonary: Effort: Pulmonary effort is normal. Skin: General: Skin is warm and dry. Comments: No signs of redness, flaking in marked area where she had yeast infection in the past. Neurological: Mental Status: She is alert and oriented to person, place, and time. Psychiatric: Mood and Affect: Affect normal. ASSESSMENT/PLAN: 1. Itching - ICD9: 698.9, ICD10: L29.9 Appears to be dry skin, no sign of yeast infection Lubriderm lotion to area after washing Follow up with dermatology or PCP if continues. Diagnosis and treatment plan were discussed and questions were answered to the patient's satisfaction. Pt acknowledged understanding of concepts and follow up plan. Specific signs and symptoms that would indicate the need for higher level of care were discussed in detail warranting prompt ER evaluation. Griselda Smiley APRN.MERARI documented in this encounter [facility] 10-26-2022 Miscellaneous Notes Rx sent Pt calling and was seen for an yeast infection. She has taken the medication given and there is just a little left. Pt requesting an other prescription to make sure it goes completely away. Please advise pt. Okay to leave a message. Chelsi Osorio LPN documented in this encounter [facility] 10-13-2022 Miscellaneous Notes Sw reviewed [employer], [facility], [facility], and [facility] numbers. Patient was able to write down numbers and read them back to SW. Patient notes that she will work on reaching out to these agencies to see about staffing availability options for patient. Patient reports Paolo Nayak tells her they are unable to help her due to staffing. Reports her cousin, Juanita, was suppose to help her today, but Juanita is sick. Asking if SW has any other options for her? Please advise patient. Sw spoke with patient and provided her with [employer], [facility], and [facility] numbers to see about home lighting adviser to help with bathing/grooming. Patient cousin Shreya took down information and will let Sw know if those agencies do not work and they need more options. Sw called and spoke with patient and she asks that Sw call back in a little while to speak with her cousin in regards to home lighting adviser agencies in community. Sw noted self pay for home lighting adviser unless on Passport/AAA. Patient notes that she is concerned with bathing/grooming due to treating a yeast infection in vaginal area. Patient notes with broken arm it is hard to take care of personal care. Sw notes that she will call patient back between 3 and 3:15 to speak with cousin so that she can write down names and numbers for local home lighting adviser agencies. Sw left message for patient letting her know that she has listing of home reproductive healthcare assistant agencies ie. [employer], [facility] [employer], [facility]. Sw can mail patient listing. These are self pay unless on Medicaid and receives [employer] Services. Saad notes patient is on Medicare and does not see any mention of Medicaid. Saad noted that patient can call Sw back and let her know if she would like Sw to mail names and numbers to patient for her to contact to set up home lighting adviser assistance. Patient calling to follow-up on request for a social service worker to assist with her request for a possible HHC. See OV note 10/04/22 for note to social service worker. Patient states she lives alone and would like assistance as soon as possible. Please advise patient. Thank you. documented in this encounter [facility] 10-04-2022 Instructions Adeel Hayes MD - 10/04/2022 2:00 PM EST May use cornstarch powder and/or Zeasorb or Gold Paiz powder (has antifungal in it)--once a day may be adequate but can apply more often if needed. Keep area dry as possible. May try cotton T-shirt material in skin folds to help if skin gets too moist there. Take the diflucan pill then after 5 to 7 days, may take the other dose if needed. documented in this encounter [facility] 10-04-2022 History of Present illness Narrative This note was created using [employer]. Subjective Dodie Li is a 77 year old female. Patient presents with: Established Patient: Broke right arm and needi ng Home Health to assist with care SUBJECTIVE: Dodie Li is a 77 year old year old lady here today for follow up appointment for review of medical conditions. Noted that having ongoing issue with resolving yeast infection. Has some help but needs more assistance and would like to see about aides. Tried to call [employer] but customer service analyst not helpful. Thought needed help for another week to do one of the treatments. Noted will need about another 4 weeks with cast on. Would like to see about HH aide to help for next 4 weeks. Alsen eye--was treated by her eye doctor. Treated for 10 days. Doing well. Following with [facility] for right arm fracture. PAST MEDICAL HISTORY Diagnosis Date Carpal tunnel syndrome Depressive disorder, not elsewhere classified Esophageal reflux Macular degeneration (senile) of retina, unspecified Myalgia and myositis, unspecified Obesity, unspecified Unspecified essential hypertension Current Outpatient Medications Medication Sig guaifenesin/dextromethorphan (MUCINEX DM ORAL) Take 1 tablet by mouth once daily. nystatin 1 billion unit powd 1 application three times daily as needed. nystatin (MYCOSTATIN) cream Apply to affected area twice daily for 14 days. Atenolol-Chlorthalidone 100-25 mg per tablet TAKE 1/2 TABLET ONE TIME DAILY omeprazole (PRILOSEC) 20 mg capsule Take 1 capsule by mouth once daily. gemfibrozil (LOPID) 600 mg tablet Take 1 tablet by mouth twice daily. gemfibrozil (LOPID) 600 mg tablet Take 1 tablet by mouth twice daily. potassium chloride ER (K-DUR, KLOR-CON) 10 mEq tablet Take 1 tablet by mouth twice daily. doxepin capsule 25 mg Take 1 capsule by mouth daily at bedtime. fexofenadine (LETICIA) 60 mg tablet Take 60 mg by mouth once daily. polyethylene glycol 3350 (MIRALAX) 17 gram/dose powder Take 17 g by mouth once daily. TYLENOL EXTRA STRENGTH 500 MG ORAL TAB Take two(2) tablets every four(4) to six(6) hours as needed. vitamin b complex capsule Take 1 capsule by mouth once daily. (Patient not taking: Reported on 10/04/2022) benzonatate (TESSALON PERLES) 100 mg capsule Take 1 capsule by mouth three times daily as needed for cough. (Patient not taking: No sig reported) ZINC ORAL Take by mouth. (Patient not taking: Reported on 10/04/2022) vitamin E mixed/tocotrienol (VITAMIN E COMPLEX ORAL) Take by mouth. (Patient not taking: Reported on 10/04/2022) ascorbic acid (VITAMIN C ORAL) Take by mouth. (Patient not taking: Reported on 10/04/2022) fluticasone (FLONASE) 50 mcg/actuation nasal spray Use 1-2 Sprays in each nostril once daily. (Patient not taking: Reported on 10/04/2022) aspirin, enteric coated (ASPIRIN, ENTERIC COATED) 81 mg EC tablet Take 81 mg by mouth once daily. (Patient not taking: Reported on 10/04/2022) vit A,C,Z-Zmlp-Cllbyi 7,160-113-100 msrq-ej-wkdj ORAL Tab Take by mouth. As directed. (Patient not taking: Reported on 10/04/2022) cholecalciferol(VITAMIN D 2,000 UNIT CAP) Take one(1) tablet daily. (Patient not taking: Reported on 10/04/2022) OMEGA 3 550 MG CAP Take one(1) tablet daily. OAT BRAN 500 MG TAB 2 tabs in am (Patient not taking: Reported on 10/04/2022) MULTIVITAMIN ORAL TAB Take one(1) tablet daily. (Patient not taking: Reported on 10/04/2022) CALCIUM + D 600 MG-200 UNIT ORAL TAB Take one(1) tablet two(2) times daily. (Patient not taking: Reported on 10/04/2022) No current facility-administered medications for this visit. Review of Systems Objective BP 126/78 Pulse 69 Temp 37.1 C (98.8 F) Resp 18 SpO2 96% Physical Exam Eyes: General: No scleral icterus. Extraocular Movements: Extraocular movements intact. Conjunctiva/sclera: Conjunctivae normal. Pupils: Pupils are equal, round, and reactive to light. Skin: Comments: Noted groin area with just mild pink skin under left pannus and a little more red under right pannus. Skin under breasts without candidal intertrigo. Assessment and Plan Encounter Diagnosis ICD-10-CM 1. Candidal intertrigo B37.2 2. 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 3. Closed fracture of right upper extremity, sequela S42.301S In cast and limiting activity; will be at least another 4 weeks in a cast Above issues addressed with patient and relative present. Patient involved in shared decision making for management of medical issues. History and medications reviewed. Epic updated as needed Refills and/or prescriptions taken care of and meds adjusted as indicated after reviewed history, exam and labs. Health Maintenance reviewed. Updated record and/or ordered tests as recorded. Encouraged on efforts at healthy diet and regular exercise and adequate sleep. Will see if able to qualify for HH to get aide to help with things like bathing. Discussed not sure what her insurance will cover and whether she needs to look into Passport. After arm heals, she hopes to be independent again with ADLs. Noted that relatives are able to offer only so much assistance. Adeel Hayes MD documented in this encounter [facility] 09-30-2022 Miscellaneous Notes Called pt and reviewed whatever HHS Dr. Newman arranged/contacted would do any authorization. Pt says she has talked to Dr. Newman's office twice. They would be taking care of this. Pt has not heard. She doesn't know what HHS they are sending info to. She will contact Dr. Newman's office next week. Tried to call number to approve HH through [place] but message says number you have dialed is invalid. Please find out whom to call to get HH set up and give my verbal okay. Pt called in asking about provider putting in order for HH for her. She states [employer] said provider just need to send the orders to them and they will set it up. Please call and advise. Patient had fractured her Rt. arm and is needing help with ADL's. Is asking that an order for Home Health be called to [facility]. Call [facility]ette at [phone]. Dr. Newman's office was to have called but never did and [facility] told patient that if PCP would place order then patient could be set up with home health sooner than waiting for Dr. Newman's office to take care of order. Please call patient once this has been completed. documented in this encounter [facility] 09-30-2022 Miscellaneous Notes Pt notified. The following approved medication requests have been transmitted electronically. Requested Prescriptions Signed Prescriptions Disp Refills nystatin 1 billion unit powd 1 Each 5 Si application three times daily as needed. Authorizing Provider: ADEEL HAYES MD Patient reports she was seen in [facility] yesterday and prescribed nystatin cream for rash in abdominal folds. Her right arm is broken, so it is difficult to hold up folds to apply. Asking if pcp would send order for nystatin powder. Feels this would be easier to use on abdominal folds, since she does sweat. MANUEL Leary. documented in this encounter [facility] 09-28-2022 History of Present illness Narrative Images from the original note were not included. Subjective She came in with complaints of rash under right side of her abdominal fold. Patient does have a cast on her right arm so was having trouble getting completely dry. Patient says she has had it several days seems to be getting worse. Patient denies any other symptoms at this time. The history is provided by the patient. No speech language pathology assistant was used. ROS Objective Physical Exam Constitutional: Appearance: Normal appearance. Pulmonary: Effort: Pulmonary effort is normal. Abdominal: Comments: Patient has moderate excoriation in the area marked above. Neurological: Mental Status: She is alert. PAST MEDICAL HISTORY Diagnosis Date Carpal tunnel syndrome Depressive disorder, not elsewhere classified Esophageal reflux Macular degeneration (senile) of retina, unspecified Myalgia and myositis, unspecified Obesity, unspecified Unspecified essential hypertension PAST SURGICAL HISTORY Procedure Laterality Date PAST SURGICAL HISTORY OF wrist surgery right in [place] PAST SURGICAL HISTORY OF wrist surgery left in [place] PAST SURGICAL HISTORY OF fissurectomy PAST SURGICAL HISTORY OF Right Hip replacement ALLERGIES Amoxicillin, Asa [Salicylates], Flagyl [Metronidazole Hcl], Lisinopril, and Penicillins MEDICATIONS Atenolol-Chlorthalidone 100-25 mg per tablet TAKE 1/2 TABLET ONE TIME DAILY omeprazole (PRILOSEC) 20 mg capsule Take 1 capsule by mouth once daily. gemfibrozil (LOPID) 600 mg tablet Take 1 tablet by mouth twice daily. gemfibrozil (LOPID) 600 mg tablet Take 1 tablet by mouth twice daily. potassium chloride ER (K-DUR, KLOR-CON) 10 mEq tablet Take 1 tablet by mouth twice daily. doxepin capsule 25 mg Take 1 capsule by mouth daily at bedtime. vitamin b complex capsule Take 1 capsule by mouth once daily. fexofenadine (LETICIA) 60 mg tablet Take 60 mg by mouth once daily. ZINC ORAL Take by mouth. polyethylene glycol 3350 (MIRALAX) 17 gram/dose powder Take 17 g by mouth once daily. vitamin E mixed/tocotrienol (VITAMIN E COMPLEX ORAL) Take by mouth. ascorbic acid (VITAMIN C ORAL) Take by mouth. fluticasone (FLONASE) 50 mcg/actuation nasal spray Use 1-2 Sprays in each nostril once daily. aspirin, enteric coated (ASPIRIN, ENTERIC COATED) 81 mg EC tablet Take 81 mg by mouth once daily. vit A,C,W-Eors-Hcxztj 7,160-113-100 jnni-md-liey ORAL Tab Take by mouth. As directed. cholecalciferol(VITAMIN D 2,000 UNIT CAP) Take one(1) tablet daily. OMEGA 3 550 MG CAP Take one(1) tablet daily. OAT BRAN 500 MG TAB 2 tabs in am MULTIVITAMIN ORAL TAB Take one(1) tablet daily. CALCIUM + D 600 MG-200 UNIT ORAL TAB Take one(1) tablet two(2) times daily. TYLENOL EXTRA STRENGTH 500 MG ORAL TAB Take two(2) tablets every four(4) to six(6) hours as needed. nystatin (MYCOSTATIN) cream Apply to affected area twice daily for 14 days. doxycycline monohydrate 100 mg tablet Take 1 tablet by mouth twice daily for 5 days. benzonatate (TESSALON PERLES) 100 mg capsule Take 1 capsule by mouth three times daily as needed for cough. (Patient not taking: No sig reported) FAMILY HISTORY Problem Relation Age of Onset Diabetes Mother Cancer Mother stomach Macular Degen Mother Cataract Mother Heart Father cad Hypertension Father Glaucoma Other cousin and GM Social History Tobacco Use Smoking status: Never Smokeless tobacco: Never Substance Use Topics Alcohol use: No Drug use: No ASSESSMENT/PLAN: 1. Skin rash - ICD9: 782.1, ICD10: R21 - NYSTATIN 100,000 UNIT/GRAM TOPICAL CREAM - DOXYCYCLINE MONOHYDRATE 100 MG TABLET Patient was educated about proper use of medication and supportive therapies. Patient will follow up with signs and symptoms seem to be getting worse not better. Patient was okay with this care plan Melina Doan APRN.MERARI documented in this encounter [facility] 09-28-2022 Instructions Melina Doan APRN.MERARI - 09/28/2022 10:51 AM EST Abdominal fold should be cleansed with mild soap rinsed thoroughly and pat it dry until completely dry nystatin cream should be placed on an entire red area. This should be done twice a day until the redness is completely gone and then continue for 2-3 more days. Area needs to be kept clean and dry to prevent reoccurrence. Patient is also being placed on antibiotics twice a day for 5 days and needs to complete all of those. documented in this encounter [facility] 09-28-2022 Miscellaneous Notes Patient reports she is having s/s of yeast infection in zac area. Reports she broke her right arm and unable to wipe good enough when using bathroom. Asking if provider can send Rx to pharmacy. Advised would need to be seen. Patient declined same day appt with [facility] this afternnoon. States she has another doctor appt this morning and plans to just stop at [facility] for evaluation. documented in this encounter [facility] 09-22-2022 Miscellaneous Notes Patient aware of same. I agree with nursing recommendations, antibiotics aren't really indicated unless we suspect strept infection and steroids can be used if severe but for right now I would recommend your suggestions and see how things progress. Thanks! Pt called in and reports she has laryngitis. She fell and broke her arm and isn't able to get out right now. She was asking if there was anything the provider would recommend she take. Let Pt know she can use cough drops or hard candy, hot tea with honey, or hot broths. Please call and advise. documented in this encounter [facility] 09-20-2022 Miscellaneous Notes PT stated Charisse Atkinson will be picking up DUNIA. Sheila PSS CD/report READY FOR MOTHER HELPER AT [facility] Patient requesting report and cd of xray performed on 09/18/22. Patient broke right arm she will send someone to tow picker records. Patient cannot drive nor write due to injury. Please call patient to get a verbal auth. documented in this encounter [facility] 09-18-2022 History of Present illness Narrative Radiology Service Progress Note PATIENT NAME: Dodie Li DATE OF SERVICE: September 18, 2022 TIME: 6:43 PM PATIENT IDENTITY VERIFICATION COMPLETED USING TWO (2) IDENTIFIERS: Name and Date of confirmed by patient verbally. FALL SCREENING: Has the patient had 2 falls in the last year or 1 fall with injury or currently using an Ambulatory Assistive Device (Walker, Cane, Wheelchair, Crutches, etc.)? No PATIENT GENDER DATA: Female. status: : No status: NO. PATIENT RELEVANT IMPLANT DATA REVIEWED: Not Applicable RADIOLOGY DEPARTMENT: General X-ray: Exam(s) Completed: Spine X-Ray(s): Sacrum/Coccyx Pelvis X-Ray: Pelvis with Hip Right Upper Extremity X-Ray(s): Shoulder, AP / TRUE AP right , Forearm, right , and Hand, right PERIPHERAL IV DATA: Not applicable SIGNED BY: RT Dimitrios(R) September 18, 2022 6:43 PM documented in this encounter [facility] 09-18-2022 History of Present illness Narrative Images from the original note were not included. Subjective Patient came in with complaints of falling at 3:00 on her kitchen floor. Patient says she was putting groceries away and turned around to clinic and fell. Patient says it cement floor with linoleum on it. Patient says she was able to scoot herself over to a chair and get up. Patient is having pain in right shoulder right forearm right wrist right hand right hip and lower back. Patient is able to walk with a cane. Patient denies any numbness tingling or loss of feeling out of the ordinary The history is provided by the patient. No speech language pathology assistant was used. Trauma Review of Systems Constitutional: Negative. Skin: Negative. Objective Physical Exam Constitutional: Appearance: Normal appearance. Pulmonary: Effort: Pulmonary effort is normal. Skin: Comments: Patient has pain in the areas marked above when palpated. No swelling or discoloration noted. Neurological: Mental Status: She is alert. PAST MEDICAL HISTORY Diagnosis Date Carpal tunnel syndrome Depressive disorder, not elsewhere classified Esophageal reflux Macular degeneration (senile) of retina, unspecified Myalgia and myositis, unspecified Obesity, unspecified Unspecified essential hypertension PAST SURGICAL HISTORY Procedure Laterality Date PAST SURGICAL HISTORY OF wrist surgery right in [place] PAST SURGICAL HISTORY OF wrist surgery left in [place] PAST SURGICAL HISTORY OF fissurectomy PAST SURGICAL HISTORY OF Right Hip replacement ALLERGIES Amoxicillin, Asa [Salicylates], Flagyl [Metronidazole Hcl], Lisinopril, and Penicillins MEDICATIONS Atenolol-Chlorthalidone 100-25 mg per tablet TAKE 1/2 TABLET ONE TIME DAILY omeprazole (PRILOSEC) 20 mg capsule Take 1 capsule by mouth once daily. gemfibrozil (LOPID) 600 mg tablet Take 1 tablet by mouth twice daily. gemfibrozil (LOPID) 600 mg tablet Take 1 tablet by mouth twice daily. potassium chloride ER (K-DUR, KLOR-CON) 10 mEq tablet Take 1 tablet by mouth twice daily. doxepin capsule 25 mg Take 1 capsule by mouth daily at bedtime. vitamin b complex capsule Take 1 capsule by mouth once daily. fexofenadine (LETICIA) 60 mg tablet Take 60 mg by mouth once daily. eszopiclone (LUNESTA) 3 mg tab Take 1 tablet by mouth at bedtime as needed for up to 180 days. AT BEDTIME. Do not start before March 29, 2022. ZINC ORAL Take by mouth. ketoconazole (NIZORAL) 2 % cream Apply 1 application to affected area twice daily. polyethylene glycol 3350 (MIRALAX) 17 gram/dose powder Take 17 g by mouth once daily. vitamin E mixed/tocotrienol (VITAMIN E COMPLEX ORAL) Take by mouth. ascorbic acid (VITAMIN C ORAL) Take by mouth. fluticasone (FLONASE) 50 mcg/actuation nasal spray Use 1-2 Sprays in each nostril once daily. aspirin, enteric coated (ASPIRIN, ENTERIC COATED) 81 mg EC tablet Take 81 mg by mouth once daily. vit A,C,W-Qqlz-Dcedyg 7,160-113-100 ftfg-hh-hdol ORAL Tab Take by mouth. As directed. cholecalciferol(VITAMIN D 2,000 UNIT CAP) Take one(1) tablet daily. OMEGA 3 550 MG CAP Take one(1) tablet daily. OAT BRAN 500 MG TAB 2 tabs in am MULTIVITAMIN ORAL TAB Take one(1) tablet daily. CALCIUM + D 600 MG-200 UNIT ORAL TAB Take one(1) tablet two(2) times daily. TYLENOL EXTRA STRENGTH 500 MG ORAL TAB Take two(2) tablets every four(4) to six(6) hours as needed. benzonatate (TESSALON PERLES) 100 mg capsule Take 1 capsule by mouth three times daily as needed for cough. (Patient not taking: No sig reported) FAMILY HISTORY Problem Relation Age of Onset Diabetes Mother Cancer Mother stomach Macular Degen Mother Cataract Mother Heart Father cad Hypertension Father Glaucoma Other cousin and GM Social History Tobacco Use Smoking status: Never Smokeless tobacco: Never Substance Use Topics Alcohol use: No Drug use: No ASSESSMENT/PLAN: 1. Pain - ICD9: 780.96, ICD10: R52 - XR SHOULDER [id number] AP/TRUE AP RIGHT - XR FOREARM GENERAL 2V AP/LAT RIGHT - XR WRIST INJURY 4V PA/LAT/OBL/SCAPH RIGHT - XR HAND GENERAL 3V PA/LAT/OBL RIGHT - XR SACRUM/COCCYX 3V AP/LAT - XR HIP GENERAL 3V PELV/AP/LAT RIGHT * * * * Physician Interpretation * * * * RIGHT SHOULDER X-RAY SERIES HISTORY: Pain TECHNIQUE: AP, Grashey, lateral scapular Y-view COMPARISON: None available. RESULT: No fracture, dislocation or destructive changes. AC joint degenerative changes are noted. IMPRESSION IMPRESSION: No acute osseous abnormalities are identified. Wood Carving Lathe Operator: KATE Transcribe Date/Time: Sep 18 2022 7:31P Dictated by : MONISHA CARVALHO MD * * * * Physician Interpretation * * * * RIGHT HAND X-RAY SERIES HISTORY: Pain TECHNIQUE: PA, lateral and oblique views. COMPARISON: None available. RESULT: There is a transversely oriented fracture involving the distal radial metaphysis, which does not appear to extend to the radiocarpal joint. There is a fracture involving the base of the ulnar styloid which appears nondisplaced. No other fractures are identified. No evidence of dislocation. IMPRESSION IMPRESSION: Distal radial and ulnar fractures. Wood Carving Lathe Operator: KATE Transcribe Date/Time: Sep 18 2022 7:33P Dictated by : MONISHA CARVALHO MD * * * * Physician Interpretation * * * * HISTORY: Pain COMPARISON: None. AP single view pelvis and AP and lateral views of the right hip: There is no evidence of fracture or dislocation. No osseous destructive abnormalities are identified. Postsurgical changes are noted status post right total hip arthroplasty. Arterial calcifications are noted in the proximal thigh regions. Degenerative changes are noted in the thoracic spine. IMPRESSION IMPRESSION: No acute osseous abnormalities are identified. [facility] Transcribe Date/Time: Sep 18 2022 7:37P Dictated by : MONISHA CARVALHO MD * * * * Physician Interpretation * * * * RIGHT FOREARM X-RAY SERIES HISTORY: Pain TECHNIQUE: AP and lateral views. COMPARISON: None available. RESULT: There is a distal radial metaphyseal fracture and fracture of the base of the ulnar styloid which appears nondisplaced. No other fractures are identified. No evidence of dislocation. Joint spaces appear unremarkable. IMPRESSION IMPRESSION: Distal radial and ulnar fractures. Wood Carving Lathe Operator: [facility] Transcribe Date/Time: Sep 18 2022 7:35P Dictated by : MONISHA CARVALHO MD Patient was placed in a sugar-tong splint. Custom made Ortho-Glass splint. Patient was then placed in a sling. Patient will just take [id number] Tylenol as she does not want to be any in any form of grogginess. Did instruct the family that someone should stay with her over the next few days until her orthopedic appointment on Sunday. To help patient now they said they would accommodate that. Patient was okay with this care plan. Melina Doan APRN.MERARI documented in this encounter [facility] 08-18-2022 Miscellaneous Notes Patient is looking into switching insurance and if her potassium is switched to Micro K 10 ERICH it will be a 0 co-pay. She is not needing this now just as a reminder at the first of the year when due for refill. documented in this encounter [facility] 08-16-2022 Miscellaneous Notes Noted. Will review at appointment. Mary Draper APRN.CNP Patient calls and states that she had flu shot on 08/14/2022. Patient states that there are streaks now around where shot was given. Site is hard and painful to the touch. Nurse Triage assessment completed with protocol recommending for disposition of See PCP in 4 hours. Care advice reviewed with patient, patient stated understanding. Patient has appointment with Mary Draper today at 1:40. Patient advised to contact office or seek evaluation in urgent care or ER if symptoms persist or gets worse. Reason for Disposition [1] Redness or red streak around the injection site AND [2] begins > 48 hours after shot AND [3] fever Answer Assessment - Initial Assessment Questions 1. SYMPTOMS: Redness and Pain 2. ONSET: Given on Sunday08/14/2022 3. SEVERITY: How bad is it? Patient states that she has red streak going across arm, an inch or so below where immunization was given. It measure about 1/2 inch wide and 2 inches long. Patient states that area is hard an painful to touch. 4. FEVER: Denies fever 5. IMMUNIZATIONS GIVEN: What shots have you recently received? Flu Vaccination 6. PAST REACTIONS: Itchy, but not red. Protocols used: Immunization [id number] documented in this encounter [facility] 08-14-2022 Instructions Adeel Hayes MD - 08/14/2022 11:49 AM EST Paxlovid-- antiviral that can be prescribed if get COVID infection. Need documented positive test and ideally a virtual visit, but since do not have MyChart, can consider Express Care or telephone visit. Let me know which mailaway we need to send prescriptions to next year. Since probably will get September prescriptions filled with current insurance, will need new prescriptions in December. Give us a couple weeks notice to get sent so new pharmacy has time to process your refills. BONE MINERAL DENSITY PATIENT INSTRUCTIONS ======= Bone mineral density testing measures the amount [...] you can resume your usual activities immediately. documented in this encounter [facility] 08-14-2022 History of Present illness Narrative This note was created using [employer]. Subjective Dodie Li is a 77 year old female. Patient presents with: Follow Up SUBJECTIVE: Dodie Li is a 77 year old year old lady here today for 6 month follow up appointment for review of medical conditions. SK type lesion on forehead near midline to the left. Same type lesion on right lateral thigh--just under 1cm diameter Not getting irritating. Varicose veins on feet are the wesley. No pain. Has PPO and might be changing insurances. Was told I am covered. Discussed Shingrix. Declines COVID vaccines. Has not had COVID Noted issues with macular degeneration. PAST MEDICAL HISTORY Diagnosis Date Carpal tunnel syndrome Depressive disorder, not elsewhere classified Esophageal reflux Macular degeneration (senile) of retina, unspecified Myalgia and myositis, unspecified Obesity, unspecified Unspecified essential hypertension Current Outpatient Medications Medication Sig Atenolol-Chlorthalidone 100-25 mg per tablet TAKE 1/2 TABLET ONE TIME DAILY omeprazole (PRILOSEC) 20 mg capsule Take 1 capsule by mouth once daily. gemfibrozil (LOPID) 600 mg tablet Take 1 tablet by mouth twice daily. gemfibrozil (LOPID) 600 mg tablet Take 1 tablet by mouth twice daily. potassium chloride ER (K-DUR, KLOR-CON) 10 mEq tablet Take 1 tablet by mouth twice daily. doxepin capsule 25 mg Take 1 capsule by mouth daily at bedtime. vitamin b complex capsule Take 1 capsule by mouth once daily. fexofenadine (LETICIA ALLERGY) 60 mg tablet Take 60 mg by mouth once daily. eszopiclone (LUNESTA) 3 mg tab Take 1 tablet by mouth at bedtime as needed for up to 180 days. AT BEDTIME. Do not start before March 29, 2022. benzonatate (TESSALON PERLES) 100 mg capsule Take 1 capsule by mouth three times daily as needed for cough. (Patient not taking: Reported on 03/24/2022 ) ZINC ORAL Take by mouth. ketoconazole (NIZORAL) 2 % cream Apply 1 application to affected area twice daily. polyethylene glycol 3350 (MIRALAX) 17 gram/dose powder Take 17 g by mouth once daily. vitamin E mixed/tocotrienol (VITAMIN E COMPLEX ORAL) Take by mouth. ascorbic acid (VITAMIN C ORAL) Take by mouth. fluticasone (FLONASE) 50 mcg/actuation nasal spray Use 1-2 Sprays in each nostril once daily. aspirin, enteric coated (ASPIRIN, ENTERIC COATED) 81 mg EC tablet Take 81 mg by mouth once daily. vit A,C,I-Ygjy-Rfwpze 7,160-113-100 dqyr-ha-mbtr ORAL Tab Take by mouth. As directed. cholecalciferol(VITAMIN D 2,000 UNIT CAP) Take one(1) tablet daily. OMEGA 3 550 MG CAP Take [...] No current facility-administered medications for this visit. Review of Systems Objective BP 126/82 Pulse 66 Wt 83.5 kg (184 lb) SpO2 99% BMI 34.77 kg/m Last 5 Encounter Wt Readings: Date: Wt: 08/14/2022 83.5 kg (184 lb) 03/24/2022 83.5 kg (184 lb) 08/17/2021 85.3 kg (188 lb) 03/22/2021 83.9 kg (185 lb) 11/01/2020 83.9 kg (185 lb) No waist measurement recorded Estimated body mass index is 34.77 kg/m as calculated from the following: Height as of 11/10/19: 154.9 cm (5' 1). Weight as of this encounter: 83.5 kg (184 lb). Last 5 Encounter BP Readings: Date: BP: 08/14/2022 126/82 03/24/2022 108/64 08/17/2021 124/78 03/22/2021 132/78 11/01/2020 114/62 Physical Exam Constitutional: Appearance: Normal appearance. HENT: Head: Normocephalic. Eyes: Conjunctiva/sclera: Conjunctivae normal. Cardiovascular: Rate and Rhythm: Normal rate and regular rhythm. Heart sounds: Normal heart sounds. Pulmonary: Effort: Pulmonary effort is normal. Breath sounds: Normal breath sounds. Musculoskeletal: Right lower leg: No edema. Left lower leg: No edema. Skin: General: Skin is warm and dry. Comments: Varicose veins both lower legs and feet Neurological: General: No focal deficit present. Mental Status: She is alert and oriented to person, place, and time. Psychiatric: Mood and Affect: Mood normal. Behavior: Behavior normal. Thought Content: Thought content normal. Judgment: Judgment normal. Last labs: Component Latest Ref Rng & Units 01/18/2022 03/24/2022 Protein, Total 6.3 - 8.0 g/dL 7.3 Albumin 3.9 - 4.9 g/dL 4.5 Calcium 8 .5 - 10.2 mg/dL 9.4 10.1 Bilirubin, Total 0.2 - 1.3 mg/dL 0.3 Alkaline Phosphatase 34 - 123 U/L 68 AST 13 - 35 U/L 23 ALT 7 - 38 U/L 12 Glucose 74 - 99 mg/dL 84 95 BUN 7 - 21 mg/dL 21 17 Creatinine 0.58 - 0.96 mg/dL 0.68 0.66 Sodium 136 - 144 mmol/L 139 140 Potassium 3.7 - 5.1 mmol/L 3.3 (L) 3.5 (L) Chloride 97 - 105 mmol/L 101 101 CO2 22 - 30 mmol/L 27 26 Anion Gap 9 - 18 mmol/L 11 13 eGFR >=60 mL/min/1.73m 91 92 WBC 3.70 - 11.00 k/uL 6.46 RBC 3.90 - 5.20 m/uL 4.45 Hemoglobin 11.5 - 15.5 g/dL 13.3 Hematocrit 36.0 - 46.0 % 41.6 MCV 80.0 - 100.0 fL 93.5 MCH 26.0 - 34.0 pg 29.9 MCHC 30.5 - 36.0 g/dL 32.0 RDW-CV 11.5 - 15.0 % 12.5 Platelet Count 150 - 400 k/uL 290 MPV 9.0 - 12.7 fL 10.5 Absolute nRBC <0.01 k/uL <0.01 Cholesterol, Total <200 mg/dL 155 Triglyceride <150 mg/dL 78 HDL Cholesterol >39 mg/dL 50 Non HDL Cholesterol <130 mg/dL 105 Fasting Time hrs 13 VLDL Cholesterol <30 mg/dL 16 TC:HDL Ratio <5.10 3.10 LDL Cholesterol <100 mg/dL 89 LDL:HDL Ratio <2.54 1.78 Vitamin D 25 Hydroxy 31.0 - 80.0 ng/mL 42.3 Assessment and Plan Encounter Diagnosis ICD-10-CM 1. Essential hypertension I10 COMP METABOLIC PANEL CBC 2. 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 3. Hypokalemia E87.6 COMP METABOLIC PANEL 4. Vitamin D deficiency E55.9 VITAMIN D 25 HYDROXY 5. Hypertriglyceridemia E78.1 LIPID PANEL BASIC 6. Asymptomatic postmenopausal status Z78.0 DXA-AXIAL SKELETON 7. Balance problems R26.89 Since hip replacement. Better with PT. Encouraged to do PT exercises to help with strength and balance. Consider PT for balance eval and treatment as needed 8. Encounter for long-term current use of medication Z79.899 COMP METABOLIC PANEL CBC MAGNESIUM BLD 9. Encounter for immunization Z23 INFLUENZA SEASONAL QUADRIVALENT HIGH DOSE AGE 65+ 10. Colon cancer screening Z12.11 FECAL OCCULT BLOOD TEST Above issues addressed with patient. Patient involved in shared decision making for management of medical issues. History and medications reviewed. Epic updated as needed Refills and/or prescriptions taken care of and meds adjusted as indicated after reviewed history, exam and labs. has refills on meds. See patient instructions. RXs to mailaway when needs next year on new insurance. Health Maintenance reviewed. Updated record and/or ordered tests as recorded. Encouraged on efforts at healthy diet and regular exercise and adequate sleep. Adeel Hayes MD documented in this encounter [facility] 06-21-2022 Miscellaneous Notes The following approved medication requests have been transmitted electronically. Requested Prescriptions approved Prescriptions Disp Refills Atenolol-Chlorthalidone 100-25 mg per tablet 45 tablet 3 Sig: TAKE 1/2 TABLET ONE TIME DAILY omeprazole (PRILOSEC) 20 mg capsule 90 capsule 3 Sig: Take 1 capsule by mouth once daily. Adeel Hayes MD Last Office Visit: 03/24/2022 Future Office Visit: 08/24/2022 Last Medication Refill: Omeprazole 07/05/2021 90 cap 30 refill Atenolol Chlorthalidone-07/05/2021 90 cap 30 refill Date of Last Labs: 01/18/2022 documented in this encounter [facility] 04-07-2022 Miscellaneous Notes The following approved medication requests have been transmitted electronically. Signed Prescriptions Disp Refills gemfibrozil (LOPID) 600 mg tablet 20 tablet 0 Sig: Take 1 tablet by mouth twice daily. COBY: No Authorizing Provider: ADEEL HAYES MD Pt called in and reports she is almost out of medication and asking for short term to be sent to [facility] while she waits for mail-in pharmacy. documented in this encounter [facility] 04-06-2022 Miscellaneous Notes Okayed Pt calling for refill. 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 Pt asking if pcp will fill? Please notify pt . Janet Frias LPN documented in this encounter [facility] 03-31-2022 Miscellaneous Notes Pt called and is notified of providers results and instructions. Pt voices understanding. Deidra Flores RN Potassium is better but still low Increased to twice daily potassium pills and sent to [facility]. Can take 2 once daily if prefers. Take with food. Check potassium level in about 1 month. O)rder placed for just potassium. The following approved medication requests have been transmitted electronically. Signed Prescriptions Disp Refills potassium chloride ER (K-DUR, KLOR-CON) 10 mEq tablet 180 tablet 3 Sig: Take 1 tablet by mouth twice daily. COBY: No Authorizing Provider: ADEEL HAYES MD Patient is calling in for Lab results, advised by Dr. Hayes if she had not heard. Re: Potassium level. Please review & advise. Ameena Alexi FACT CHECKER documented in this encounter [facility] 03-28-2022 Miscellaneous Notes Patient's request for medication is as follows: Signed Prescriptions Disp Refills doxepin capsule 25 mg 90 capsule 0 Sig: Take 1 capsule by mouth daily at bedtime. COBY: No Authorizing Provider: ADEEL HAYES ALPRAZolam (XANAX) 0.5 mg tablet 30 tablet 0 Sig: Take 0.5-1 tablets by mouth once daily as needed for anxiety for up to 90 days. TIFFANY Class: C-IV COBY: No Authorizing Provider: ADEEL HAYES Prescription(s) printed as above. Please process accordingly. Patient is wanting prescriptions printed & mailed to her, she uses [facility]. Patient has been identified by name and date of : Yes Patient phones for refill(s): Pending Prescriptions Disp Refills DOXEPIN 25 MG CAPSULE 90 capsule 0 Sig: Take 1 capsule by mouth daily at bedtime. COBY: No ALPRAZOLAM 0.5 MG TABLET 30 tablet 0 Sig: Take 0.5-1 tablets by mouth once daily as needed for anxiety for up to 90 days. TIFFANY Class: C-IV COBY: No Date of last office visit in primary care: 03/24/2022 Follow-up: 08/14/2022 Last 2 Encounter Wt Readings: Date: Wt: 03/24/2022 83.5 kg (184 lb) 08/17/2021 85.3 kg (188 lb) Previous labs/tests for medication: Blood Pressure: BUN (mg/dL) Date Value 03/24/2022 17 03/01/2021 20 Sodium (mmol/L) Date Value 03/24/2022 140 03/01/2021 138 Last 1 Encounter BP Readings: Date: BP: 03/24/2022 108/64 Please advise. Thank you. Ameena Truong LPN documented in this encounter [facility] 03-24-2022 History of Present illness Narrative This note was created using [employer]. Subjective Dodie Li is a 76 year old female. Patient presents with: Follow Up SUBJECTIVE: Dodie Li is a 76 year old year old lady here today for 6 month follow up appointment for review of medical conditions. Noted that sometimes hard to hear when in religious and the speaker's voice trails off. Cannot afford expensive hearing aids. Noted varicose veins on legs, since had hip replacement. No pain with the dilated veins. Noted left upper forehead near hairline--does not get irritated (looks like SKs) Still needs Lunesta 3 mg. Lower dose did not help with sleep. PAST MEDICAL HISTORY Diagnosis Date Carpal tunnel syndrome Depressive disorder, not elsewhere classified Esophageal reflux Macular degeneration (senile) of retina, unspecified Myalgia and myositis, unspecified Obesity, unspecified Unspecified essential hypertension Current Outpatient Medications Medication Sig vitamin b complex capsule Take 1 capsule by mouth once daily. fexofenadine (LETICIA ALLERGY) 60 mg tablet Take 60 mg by mouth once daily. eszopiclone (LUNESTA) 3 mg tab Take 1 tablet by mouth at bedtime as needed for up to 180 days. AT BEDTIME. doxepin capsule 25 mg Take 1 capsule by mouth daily at bedtime. ZINC ORAL Take by mouth. potassium chloride ER (K-DUR, KLOR-CON) 10 mEq tablet Take 1 tablet by mouth once daily. omeprazole (PRILOSEC) 20 mg capsule Take 1 capsule by mouth once daily. Atenolol-Chlorthalidone 100-25 mg per tablet TAKE 1/2 TABLET ONE TIME DAILY polyethylene glycol 3350 (MIRALAX) 17 gram/dose powder Take 17 g by mouth once daily. vitamin E mixed/tocotrienol (VITAMIN E COMPLEX ORAL) Take by mouth. ascorbic acid (VITAMIN C ORAL) Take by mouth. fluticasone (FLONASE) 50 mcg/actuation nasal spray Use 1-2 Sprays in each nostril once daily. gemfibrozil (LOPID) 600 mg tablet Take 1 tablet by mouth twice daily. aspirin, enteric coated (ASPIRIN, ENTERIC COATED) 81 mg EC tablet Take 81 mg by mouth once daily. vit A,C,S-Eyke-Ztjddv 7,160-113-100 vcdp-mz-eoyv ORAL Tab Take by mouth. As directed. cholecalciferol(VITAMIN D 2,000 UNIT CAP) Take one(1) tablet daily. OMEGA 3 550 MG CAP Take one(1) tablet daily. OAT BRAN 500 MG TAB 2 tabs in am MULTIVITAMIN ORAL TAB Take one(1) tablet daily. CALCIUM + D 600 MG-200 UNIT ORAL TAB Take one(1) tablet two(2) times daily. TYLENOL EXTRA STRENGTH 500 MG ORAL TAB Take two(2) tablets every four(4) to six(6) hours as needed. benzonatate (TESSALON PERLES) 100 mg capsule Take 1 capsule by mouth three times daily as needed for cough. (Patient not taking: Reported on 03/24/2022 ) ketoconazole (NIZORAL) 2 % cream Apply 1 application to affected area twice daily. No current facility-administered medications for this visit. Review of Systems Objective BP 108/64 Pulse 65 Wt 83.5 kg (184 lb) SpO2 95% BMI 34.77 kg/m Last 5 Encounter Wt Readings: Date: Wt: 03/24/2022 83.5 kg (184 lb) 08/17/2021 85.3 kg (188 lb) 03/22/2021 83.9 kg (185 lb) 11/01/2020 83.9 kg (185 lb) 11/10/2019 91.6 kg (202 lb) No waist measurement recorded Estimated body mass index is 34.77 kg/m as calculated from the following: Height as of 11/10/19: 154.9 cm (5' 1). Weight as of this encounter: 83.5 kg (184 lb). Last 5 Encounter BP Readings: Date: BP: 03/24/2022 108/64 08/17/2021 124/78 03/22/2021 132/78 11/01/2020 114/62 11/10/2019 122/80 Physical Exam Constitutional: Appearance: Normal appearance. HENT: Head: Normocephalic. Right Ear: Tympanic membrane, ear canal and external ear normal. There is no impacted cerumen. Left Ear: Tympanic membrane, ear canal and external ear normal. There is no impacted cerumen. Eyes: Conjunctiva/sclera: Conjunctivae normal. Cardiovascular: Rate and Rhythm: Normal rate and regular rhythm. Heart sounds: Normal heart sounds. Comments: Noted varicose veins on legs, most prominent on feet, more on right Pulmonary: Effort: Pulmonary effort is normal. Breath sounds: Normal breath sounds. Skin: General: Skin is warm and dry. Neurological: General: No focal deficit present. Mental Status: She is alert and oriented to person, place, and time. Psychiatric: Attention and Perception: Attention and perception normal. Mood and Affect: Mood and affect normal. Speech: Speech normal. Behavior: Behavior normal. Thought Content: Thought content normal. Cognition and Memory: Cognition and memory normal. Judgment: Judgment normal. Component Latest Ref Rng & Units 03/01/2021 01/18/2022 WBC 3.70 - 11.00 k/uL 6.99 6.46 RBC 3.90 - 5.20 m/uL 4.39 4.45 Hemoglobin 11.5 - 15.5 g/dL 13.1 13.3 Hematocrit 36.0 - 46.0 % 40.0 41.6 MCV 80.0 - 100.0 fL 91.1 93.5 MCH 26.0 - 34.0 pg 29.8 29.9 MCHC 30.5 - 36.0 g/dL 32.8 32.0 RDW-CV 11.5 - 15.0 % 12.8 12.5 Platelet Count 150 - 400 k/uL 272 290 MPV 9.0 - 12.7 fL 10.8 10.5 Neut% % 57.2 Abs Neut (ANC) 1.45 - 7.50 k/uL 3.98 Lymph% % 30.2 Abs Lymph 1.00 - 4.00 k/uL 2.11 [place]% % 8.0 Abs [place] <0.87 k/uL 0.56 Eosin% % 4.0 Abs Eosin <0.46 k/uL 0.28 Baso% % 0.6 Abs Baso <0.11 k/uL 0.04 Nucleated Reds 0 /100 WBC 0.0 Absolute nRBC <0.01 k/uL <0.01 <0.01 Diff Type Auto Diff Protein, Total 6.3 - 8.0 g/dL 7.5 7.3 Albumin 3.9 - 4.9 g/dL 4.6 4.5 Calcium 8.5 - 10.2 mg/dL 9.6 9.4 Bilirubin, Total 0.2 - 1.3 mg/dL 0.4 0.3 Alkaline Phosphatase 34 - 123 U/L 69 68 AST 13 - 35 U/L 22 23 Glucose 74 - 99 mg/dL 88 84 BUN 7 - 21 mg/dL 20 21 Creatinine 0.58 - 0.96 mg/dL 0.62 0.68 Sodium 136 - 144 mmol/L 138 139 Potassium 3.7 - 5.1 mmol/L 4.1 3.3 (L) Chloride 97 - 105 mmol/L 103 101 CO2 22 - 30 mmol/L 26 27 Anion Gap 9 - 18 mmol/L 9 11 ALT 7 - 38 U/L 15 12 eGFR- >60 eGFR-All Other Races . >60 eGFR >=60 mL/min/1.73m 91 Cholesterol, Total <200 mg/dL 146 155 Triglyceride <150 mg/dL 56 78 HDL Cholesterol >39 mg/dL 50 50 LDL Cholesterol <100 mg/dL 85 89 Non HDL Cholesterol <130 mg/dL 96 105 Fasting Time hrs 12 13 VLDL Cholesterol <30 mg/dL 11 16 TC:HDL Ratio <5.10 2.92 3.10 LDL:HDL Ratio <2.54 1.70 1.78 Vitamin D 25 Hydroxy 31.0 - 80.0 ng/mL 40.7 42.3 Assessment and Plan Encounter Diagnosis ICD-10-CM 1. Essential hypertension I10 2. 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 Vitamin D deficiency E55.9 4. Hypokalemia E87.6 BASIC METABOLIC PNL 5. Varicose veins of both lower extremities, unspecified whether complicated I83.93 Monitor. Further evaluation and treatment as needed 6. Hearing difficulty of both ears H91.93 Consider getting help for hearing aids. Gociety might help ASSESSMENT/PLAN: 1. Essential hypertension - ICD9: 401.9, ICD10: I10 (primary diagnosis) - good control - Continue current medication(s) - Recommended regular aerobic exercise. - Recommend home blood pressure monitoring, to bring results in on next visit - Goal of BP <130/80 2. Persistent disorder of initiating or maintaining sleep - ICD9: 307.42, ICD10: G47.00 Stable with control of insonia. No signs of diversion or abuse of medication(s); no adverse effects. Continue present management. - ESZOPICLONE 3 MG TABLET 3. Vitamin D deficiency - ICD9: 268.9, ICD10: E55.9 Continue present management. 4. Hypokalemia - ICD9: 276.8, ICD10: E87.6 Adjust replacement and diet and fluid intake as indicated - BASIC METABOLIC PNL Adeel Hayes MD documented in this encounter [facility] 02-02-2022 Miscellaneous Notes Phoned patient and given provider's message below with verbalized understanding. With regards to first message about meds for allergies., Flonase is on her list as not taking when was asked before, but she may that that as needed when allergies act up. Also okay to take over the counter allergy meds like Claritin or Leticia or generics as needed. Ginkgo biloba has a potential interaction with aspirin (might increase risk of bleeding) and with trazodone (a case report of patient who took 100 mg trazodone and high dose ginkgo biloba (320 mg in 50 hours) went into a coma). Though risk is listed as low in the drug interactions warnings, they caution about the interaction.Since there is not great study to show efficacy of ginkgo biloba, would recommend against taking it with her aspirin and trazodone. Pt called to check and see if okay to take Ginkgo biloba? Please advise. Chelsi Osorio LPN PT would like to know if she is still to be taking her medicine for allergies until she is seen again by . documented in this encounter [facility] 01-09-2022 Miscellaneous Notes Patient notified of providers message and verbalized understanding OK to try switching to see if different antihistamine helps more. If needed can come in for recheck Patient reports her allergies are bothering her more lately, and leticia does not seem to be helping like they use to. Asking pcp if she should switch to zyrtec? Please phone patient with reply. documented in this encounter [facility] 01-03-2022 Miscellaneous Notes Patient notified of providers message and verbalized understanding. Fasting labs ordered Malu Draper APRN.CNP Patient scheduled for follow up 02/03. Patient asking if Dr. Hayes would like for her to have lab draw prior to office visit. Please advise and call patient. Thank you documented in this encounter [facility] 12-31-2021 Miscellaneous Notes The following approved medication requests have been transmitted electronically. Signed Prescriptions Disp Refills benzonatate (TESSALON PERLES) 100 mg capsule 30 capsule 0 Sig: Take 1 capsule by mouth three times daily as needed for cough. COBY: No Authorizing Provider: TALAMPAS, ADEEL D eszopiclone (LUNESTA) 3 mg tab 90 tablet 0 Sig: Take 1 tablet by mouth at bedtime as needed for up to 180 days. AT BEDTIME. TIFFANY Class: C-IV COBY: No Authorizing Provider: ADEEL HAYES doxepin capsule 25 mg 90 capsule 0 Sig: Take 1 capsule by mouth daily at bedtime. COBY: No Authorizing Provider: ADEEL HAYES MD Patient has been identified by name and date of : Yes Patient phones for refill(s): Pending Prescriptions Disp Refills BENZONATATE 100 MG CAPSULE 30 capsule 0 Sig: Take 1 capsule by mouth three times daily as needed for cough. COBY: No ESZOPICLONE 3 MG TABLET 90 tablet 0 Sig: Take 1 tablet by mouth at bedtime as needed for up to 180 days. AT BEDTIME. TIFFANY Class: C-IV COBY: No DOXEPIN 25 MG CAPSULE 90 capsule 0 Sig: Take 1 capsule by mouth daily at bedtime. COBY: No Date of last office visit with pcp: 08/17/2021 Future appt: 01/31/2022 Last 2 Encounter Wt Readings: Date: Wt: 08/17/2021 85.3 kg (188 lb) 03/22/2021 83.9 kg (185 lb) Previous labs/tests for medication: Blood Pressure: BUN (mg/dL) Date Value 03/01/2021 20 Sodium (mmol/L) Date Value 03/01/2021 138 Last 1 Encounter BP Readings: Date: BP: 08/17/2021 124/78 Liver Function: ALT (U/L) Date Value 03/01/2021 15 AST (U/L) Date Value 03/01/2021 22 Please advise. Thank you. Daniela Gordon RN documented in this encounter [facility] Evaluation note Diagnosis Persistent disorder of initiating or maintaining sleep [facility] Diagnosis Hypertriglyceridemia- Primary Pure hyperglyceridemia Essential hypertension Unspecified essential hypertension Vitamin D deficiency Unspecified vitamin D deficiency [facility] Diagnosis Persistent disorder of initiating or maintaining sleep Anxiety state Anxiety state, unspecified [facility] Diagnosis Essential hypertension- Primary Unspecified essential hypertension Persistent disorder of initiating or maintaining sleep Vitamin D deficiency Unspecified vitamin D deficiency Hypokalemia Hypopotassemia Varicose veins of both lower extremities, unspecified whether complicated Hearing difficulty of both ears [facility] Diagnosis Hypokalemia- Primary Hypopotassemia [facility] Diagnosis Essential hypertension- Primary Unspecified essential hypertension Persistent disorder of initiating or maintaining sleep Hypokalemia Hypopotassemia Vitamin D deficiency Unspecified vitamin D deficiency Hypertriglyceridemia Pure hyperglyceridemia Asymptomatic postmenopausal status Balance problems Other symptoms involving nervous and musculoskeletal systems Encounter for long-term current use of medication Encounter for immunization Need for other specified prophylactic vaccination against single bacterial disease Colon cancer screening Special screening for malignant neoplasms, colon [facility] noteNo assessment information availableWAshtab[facility] Work Phone: Evaluation note* Diagnosis Pain- Primary Generalized pain [facility] Diagnosis Skin rash- Primary Rash and other nonspecific skin eruption [facility] Diagnosis Candidal intertrigo- Primary Candidiasis of skin and nails Alsen eye disease of both eyes Closed fracture of right upper extremity, sequela [facility] Diagnosis Itching- Primary Unspecified pruritic disorder [facility] Diagnosis Toenail deformity- Primary Unspecified disease of nail [facility] Diagnosis Persistent disorder of initiating or maintaining sleep- Primary Candidal intertrigo Candidiasis of skin and nails Essential hypertension Unspecified essential hypertension Class 1 obesity due to excess calories without serious comorbidity with body mass index (BMI) of 34.0 to 34.9 in adult Screening for colon cancer Special screening for malignant neoplasms, colon [facility] Diagnosis Onychomycosis- Primary Dermatophytosis of nail Toenail deformity Unspecified disease of nail Pain in toe of left foot Pain in limb Pain in toe of right foot Pain in limb [facility] Anxiety state Anxiety state, unspecified [facility] Diagnosis Onychomycosis- Primary Dermatophytosis of nail Pain in toe of left foot Pain in limb Pain in toe of right foot Pain in limb [facility] Diagnosis Persistent disorder of initiating or maintaining sleep- Primary Essential hypertension Unspecified essential hypertension Vitamin D deficiency Unspecified vitamin D deficiency Hypokalemia Hypopotassemia Hypertriglyceridemia Pure hyperglyceridemia Encounter for long-term current use of medication Need for shingles vaccine Need for prophylactic vaccination and inoculation against other viral diseases Asymptomatic postmenopausal status Encounter for immunization Need for other specified prophylactic vaccination against single bacterial disease Bilateral hearing loss, unspecified hearing loss type [facility] Gait instability- Primary Abnormality of gait Status post right hip replacement Hip joint replacement by other means Asymptomatic postmenopausal status [facility] Diagnosis Onychomycosis- Primary Dermatophytosis of nail Pain in toe of left foot Pain in limb Pain in toe of right foot Pain in limb [facility] Diagnosis 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 Adjustment disorder with mixed anxiety and depressed mood Macular degeneration of both eyes, unspecified type [facility] Diagnosis Persistent disorder of initiating or maintaining sleep [facility] Diagnosis Persistent disorder of initiating or maintaining sleep- Primary Situational mixed anxiety and depressive disorder Adjustment disorder with mixed anxiety and depressed mood Gait instability Abnormality of gait Essential hypertension Unspecified essential hypertension Hypokalemia Hypopotassemia Screening for colon cancer Special screening for malignant neoplasms, colon Encounter for immunization Need for other specified prophylactic vaccination against single bacterial disease [facility] Diagnosis Aftercare following joint replacement surgery, unspecified joint- Primary [facility] Diagnosis Onychomycosis- Primary Dermatophytosis of nail Pain in toe of left foot Pain in limb Pain in toe of right foot Pain in limb [facility] Diagnosis HYPERTENSION NOS- Primary Unspecified essential hypertension 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 fibromyalgia Mylagia and myositis, unspecified Esophageal reflux DEPRESSIVE DISORDER NEC Depressive disorder, not elsewhere classified Need for zoster vaccination Need for prophylactic vaccination and inoculation against other viral diseases Need for vaccine for Td (tetanus-diphtheria) Need for prophylactic vaccination with tetanus-diphtheria (Td) Preventative health care Routine general medical examination at a health care facility ANXIETY STATE NOS Anxiety state, unspecified Special screening for malignant neoplasm of colon Special screening for malignant neoplasms, colon Dry skin dermatitis Contact dermatitis and other eczema due to other specified agent Gait instability- Primary Abnormality of gait Balance problems Other symptoms involving nervous and musculoskeletal systems Repeated falls Other symptoms involving nervous and musculoskeletal systems Status post right hip replacement Hip joint replacement by other means [facility] Diagnosis HYPERTENSION NOS- Primary Unspecified essential hypertension 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 fibromyalgia Mylagia and myositis, unspecified Esophageal reflux DEPRESSIVE DISORDER NEC Depressive disorder, not elsewhere classified Need for zoster vaccination Need for prophylactic vaccination and inoculation against other viral diseases Need for vaccine for Td (tetanus-diphtheria) Need for prophylactic vaccination with tetanus-diphtheria (Td) Preventative health care Routine general medical examination at a health care facility ANXIETY STATE NOS Anxiety state, unspecified Special screening for malignant neoplasm of colon Special screening for malignant neoplasms, colon Dry skin dermatitis Contact dermatitis and other eczema due to other specified agent Sleep disturbance- Primary Sleep disturbance, unspecified Repeated falls Other symptoms involving nervous and musculoskeletal systems Situational mixed anxiety and depressive disorder Adjustment disorder with mixed anxiety and depressed mood Diarrhea, unspecified type [facility] Diagnosis HYPERTENSION NOS- Primary Unspecified essential hypertension 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 fibromyalgia Mylagia and myositis, unspecified Esophageal reflux DEPRESSIVE DISORDER NEC Depressive disorder, not elsewhere classified Need for zoster vaccination Need for prophylactic vaccination and inoculation against other viral diseases Need for vaccine for Td (tetanus-diphtheria) Need for prophylactic vaccination with tetanus-diphtheria (Td) Preventative health care Routine general medical examination at a health care facility ANXIETY STATE NOS Anxiety state, unspecified Special screening for malignant neoplasm of colon Special screening for malignant neoplasms, colon Dry skin dermatitis Contact dermatitis and other eczema due to other specified agent Pain Generalized pain [facility] Diagnosis HYPERTENSION NOS- Primary Unspecified essential hypertension 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 fibromyalgia Mylagia and myositis, unspecified Esophageal reflux DEPRESSIVE DISORDER NEC Depressive disorder, not elsewhere classified Need for zoster vaccination Need for prophylactic vaccination and inoculation against other viral diseases Need for vaccine for Td (tetanus-diphtheria) Need for prophylactic vaccination with tetanus-diphtheria (Td) Preventative health care Routine general medical examination at a health care facility ANXIETY STATE NOS Anxiety state, unspecified Special screening for malignant neoplasm of colon Special screening for malignant neoplasms, colon Dry skin dermatitis Contact dermatitis and other eczema due to other specified agent Medicare annual wellness visit, subsequent- Primary Routine general medical examination at a health care facility Gait instability Abnormality of gait Essential hypertension Unspecified essential hypertension Hypokalemia Hypopotassemia Hypertriglyceridemia Pure hyperglyceridemia [facility] Diagnosis HYPERTENSION NOS- Primary Unspecified essential hypertension 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 fibromyalgia Mylagia and myositis, unspecified Esophageal reflux DEPRESSIVE DISORDER NEC Depressive disorder, not elsewhere classified Need for zoster vaccination Need for prophylactic vaccination and inoculation against other viral diseases Need for vaccine for Td (tetanus-diphtheria) Need for prophylactic vaccination with tetanus-diphtheria (Td) Preventative health care Routine general medical examination at a [facility] ANXIETY STATE NOS Anxiety state, unspecified Special screening for malignant neoplasm of colon Special screening for malignant neoplasms, colon Dry skin dermatitis Contact dermatitis and other eczema due to other specified agent Balance problem- Primary Other symptoms involving nervous and musculoskeletal systems Frequent falls Personal history of fall Essential hypertension Unspecified essential hypertension Benign paroxysmal positional vertigo, unspecified laterality Nocturia more than twice per night Vision impairment Unspecified visual loss Encounter for immunization Need for other specified prophylactic vaccination against single bacterial disease [facility] Diagnosis HYPERTENSION NOS- Primary Unspecified essential hypertension 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 fibromyalgia Mylagia and myositis, unspecified Esophageal reflux DEPRESSIVE DISORDER NEC Depressive disorder, not elsewhere classified Need for zoster vaccination Need for prophylactic vaccination and inoculation against other viral diseases Need for vaccine for Td (tetanus-diphtheria) Need for prophylactic vaccination with tetanus-diphtheria (Td) Preventative health care Routine general medical examination at a health care facility ANXIETY STATE NOS Anxiety state, unspecified Special screening for malignant neoplasm of colon Special screening for malignant neoplasms, colon Dry skin dermatitis Contact dermatitis and other eczema due to other specified agent Onychomycosis- Primary Dermatophytosis of nail Pain in toe of left foot Pain in limb Pain in toe of right foot Pain in limb [facility] Diagnosis HYPERTENSION NOS- Primary Unspecified essential hypertension 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 fibromyalgia Mylagia and myositis, unspecified Esophageal reflux DEPRESSIVE DISORDER NEC Depressive disorder, not elsewhere classified Need for zoster vaccination Need for prophylactic vaccination and inoculation against other viral diseases Need for vaccine for Td (tetanus-diphtheria) Need for prophylactic vaccination with tetanus-diphtheria (Td) Preventative health care Routine general medical examination at a health care facility ANXIETY STATE NOS Anxiety state, unspecified Special screening for malignant neoplasm of colon Special screening for malignant neoplasms, colon Dry skin dermatitis Contact dermatitis and other eczema due to other specified agent Anxiety state- Primary Anxiety state, unspecified [facility] Diagnosis HYPERTENSION NOS- Primary Unspecified essential hypertension 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 fibromyalgia Mylagia and myositis, unspecified Esophageal reflux DEPRESSIVE DISORDER NEC Depressive disorder, not elsewhere classified Need for zoster vaccination Need for prophylactic vaccination and inoculation against other viral diseases Need for vaccine for Td (tetanus-diphtheria) Need for prophylactic vaccination with tetanus-diphtheria (Td) Preventative health care Routine general medical examination at a health care facility ANXIETY STATE NOS Anxiety state, unspecified Special screening for malignant neoplasm of colon Special screening for malignant neoplasms, colon Dry skin dermatitis Contact dermatitis and other eczema due to other specified agent Weakness of both lower extremities- Primary Gait instability Abnormality of gait Primary osteoarthritis of both knees Primary localized osteoarthrosis, lower leg S/P total right hip arthroplasty Right hand weakness Muscle weakness (generalized) [facility] Diagnosis HYPERTENSION NOS- Primary Unspecified essential hypertension 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 fibromyalgia Mylagia and myositis, unspecified Esophageal reflux DEPRESSIVE DISORDER NEC Depressive disorder, not elsewhere classified Need for zoster vaccination Need for prophylactic vaccination and inoculation against other viral diseases Need for vaccine for Td (tetanus-diphtheria) Need for prophylactic vaccination with tetanus-diphtheria (Td) Preventative health care Routine general medical examination at a health care facility ANXIETY STATE NOS Anxiety state, unspecified Special screening for malignant neoplasm of colon Special screening for malignant neoplasms, colon Dry skin dermatitis Contact dermatitis and other eczema due to other specified agent Anxiety disorder, unspecified type- Primary [facility] Diagnosis HYPERTENSION NOS- Primary Unspecified essential hypertension 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 fibromyalgia Mylagia and myositis, unspecified Esophageal reflux DEPRESSIVE DISORDER NEC Depressive disorder, not elsewhere classified Need for zoster vaccination Need for prophylactic vaccination and inoculation against other viral diseases Need for vaccine for Td (tetanus-diphtheria) Need for prophylactic vaccination with tetanus-diphtheria (Td) Preventative health care Routine general medical examination at a health care facility ANXIETY STATE NOS Anxiety state, unspecified Special screening for malignant neoplasm of colon Special screening for malignant neoplasms, colon Dry skin dermatitis Contact dermatitis and other eczema due to other specified agent Onychomycosis- Primary Dermatophytosis of nail Pain in toe of left foot Pain in limb Pain in toe of right foot Pain in limb Callus of foot Corns and callosities Hammer toe of right foot [facility] Diagnostic Procedure Only (Urgent) - Closed Specialty Diagnoses / Procedures Referred By Contac t Referred To Contact XR IMAGING Diagnoses Pain Procedures XR HIP GENERAL 3V PELV/AP/LAT RIGHT RADEX HIP UNILATERAL WITH PELVIS 2-3 VIEWS Melina Doan APRN.[employer]ATIONS OFFICER [address] [id number] [place] [address] Referral ID Status Reason Start Date Expiration Date V isits Requested Visits Authorized [id number] Closed Auto-Generate d Referral 09/18/2022 10/18/2023 1 1 * Diagnostic Procedure Only (Urgent) - Closed Specialty Diagnoses / Procedures Referred By Contac t Referred To Contact XR IMAGING Diagnoses Pain Procedures XR SACRUM/COCCYX 3V AP/LAT RADEX SACRUM & COCCYX MINIMUM 2 VIEWS Melina Doan APRN.[employer]OR [employer]ATIONS OFFICER [address] [place] [address] [place] [address] Referral ID Status Reason Start Date Expiration Date V isits Requested Visits Authorized [id number] Closed Auto-Generate d Referral 09/18/2022 10/18/2023 1 1 * Diagnostic Procedure Only (Urgent) - Closed Specialty Diagnoses / Procedures Referred By Contac t Referred To Contact XR IMAGING Diagnoses Pain Procedures XR HAND GENERAL 3V PA/LAT/OBL RIGHT RADEX HAND MINIMUM 3 VIEWS Melina Doan APRN.[employer]ATIONS OFFICER [address] [place] [address] [place] [address] Referral ID Status Reason Start Date Expiration Date V isits Requested Visits Authorized [id number] Closed Auto-Generate d Referral 09/18/2022 10/18/2023 1 1 * Diagnostic Procedure Only (Urgent) - Closed Specialty Diagnoses / Procedures Referred By Contac t Referred To Contact XR IMAGING Diagnoses Pain Procedures XR FOREARM GENERAL 2V AP/LAT RIGHT RADEX FOREARM 2 VIEWS Melina Doan APRN.[employer]OR RELATIONS OFFICER [address] [place] [address] [place] [address] Referral ID Status Reason Start Date Expiration Date V isits Requested Visits Authorized [id number] Closed Auto-Generate d Referral 09/18/2022 10/18/2023 1 1 * Diagnostic Procedure Only (Urgent) - Closed Specialty Diagnoses / Procedures Referred By Contac t Referred To Contact XR IMAGING Diagnoses Pain Procedures XR SHOULDER [id number] AP/TRUE AP RIGHT RADEX SHOULDER COMPLETE MINIMUM 2 VIEWS Melina Doan APRN.[employer]OR RELATIONS OFFICER [address] [place] [address] [place] [address] Referral ID Status Reason Start Date Expiration Date V isits Requested Visits Authorized [id number] Closed Auto-Generate d Referral 09/18/2022 10/18/2023 1 1 [facility] for visit Narrative* Diagnostic Procedure Only (Urgent) - Closed Specialty Diagnoses / Procedures Referred By Contac t Referred To Contact XR IMAGING Diagnoses Pain Procedures XR HIP GENERAL 3V PELV/AP/LAT RIGHT RADEX HIP UNILATERAL WITH PELVIS 2-3 VIEWS Melina Doan APRN.[employer]OR [employer]ATIONS OFFICER [address] [place] [address] [place] [address] Referral ID Status Reason Start Date Expiration Date V isits Requested Visits Authorized [id number] Closed Auto-Generate d Referral 09/18/2022 10/18/2023 1 1 [facility] Reason for Referral Specialty Diagnoses / Procedures Referred By Contac t Referred To Contact Diagnoses Persistent disorder of initiating or maintaining sleep Adeel Hayse MD [address] [place] [address] Referral ID Status Reason Start Date Expiration Date V isits Requested Visits Authorized [id number] Authorized 1 1 Specialty Diagnoses / Procedures Referred By Contac t Referred To Contact Orthopedics Diagnoses Pain Procedures CONSULT TO ORTHOPAEDICS OFFICE/OUTPATIENT [facility] MDM 60-74 MINUTES Melina Doan APRN.DONOR RELATIONS OFFICER [address] [place] [address] Referral ID Status Reason Start Date Expiration Date Visits Requested Visits Authorized [id number] Authorized PCP Requested Referral 09/18/2023 1 1 Specialty Diagnoses / Procedures Referred By Contac t Referred To Contact XR IMAGING Diagnoses Pain Procedures XR HIP GENERAL 3V PELV/AP/LAT RIGHT RADEX HIP UNILATERAL WITH PELVIS 2-3 VIEWS Melina Doan, RETURNER.DONOR RELATIONS OFFICER [address] [place] [address] Xr Imaging Referral ID Status Reason Start Date Expiration Date V isits Requested Visits Authorized [id number] Closed Auto-Generate d Referral 09/18/2022 10/18/2023 1 1 Specialty Diagnoses / Procedures Referred By Contac t Referred To Contact XR IMAGING Diagnoses Pain Procedures XR SACRUM/COCCYX 3V AP/LAT RADEX SACRUM & COCCYX MINIMUM 2 VIEWS Melina Daon, RETURNER.DONOR RELATIONS OFFICER [address] [place] [address] Xr Imaging Referral ID Status Reason Start Date Expiration Date V isits Requested Visits Authorized [id number] Closed Auto-Generate d Referral 09/18/2022 10/18/2023 1 1 Specialty Diagnoses / Procedures Referred By Contac t Referred To Contact XR IMAGING Diagnoses Pain Procedures XR HAND GENERAL 3V PA/LAT/OBL RIGHT RADEX HAND MINIMUM 3 VIEWS Melina Doan APRN.DONOR RELATIONS OFFICER [address] [place] [address] Xr Imaging Referral ID Status Reason Start Date Expiration Date V isits Requested Visits Authorized [id number] Closed Auto-Generate d Referral 09/18/2022 10/18/2023 1 1 Specialty Diagnoses / Procedures Referred By Contac t Referred To Contact XR IMAGING Diagnoses Pain Procedures XR FOREARM GENERAL 2V AP/LAT RIGHT RADEX FOREARM 2 VIEWS Melina Doan, RETURNER.DONOR RELATIONS OFFICER [address] [place] [address] Xr Imaging Referral ID Status Reason Start Date Expiration Date V isits Requested Visits Authorized [id number] Closed Auto-Generate d Referral 09/18/2022 10/18/2023 1 1 Specialty Diagnoses / Procedures Referred By Contac t Referred To Contact XR IMAGING Diagnoses Pain Procedures XR SHOULDER [id number] AP/TRUE AP RIGHT RADEX SHOULDER COMPLETE MINIMUM 2 VIEWS Melina Doan, RETURNER.DONOR RELATIONS OFFICER [address] [place] [address] Xr Imaging Referral ID Status Reason Start Date Expiration Date V isits Requested Visits Authorized [id number] Closed Auto-Generate d Referral 09/18/2022 10/18/2023 1 1 Specialty Diagnoses / Procedures Referred By Contac t Referred To Contact Podiatry Diagnoses Toenail deformity Procedures CONSULT TO PODIATRY OFFICE/OUTPATIENT [facility] 60-74 MINUTES Enriqueta Otto, RETURNER.DYNAMOMETER [employer]INE [address] [place] [address] Referral ID Status Reason Start Date Expiration Date Visits Requested Visits Authorized [id number] Pending Review PCP Requested Referral 03/26/2023 03/25/2024 1 1 Specialty Diagnoses / Procedures Referred By Contac t Referred To Contact [facility] Diagnoses Gait instability Balance problems Repeated falls Status post right hip replacement Procedures CONSULT TO PHYSICAL THERAPY PHYSICAL THERAPY EVALUATION [facility] 45 MINS Destini Lee RETURNER.DONOR RELATIONS OFFICER [address] [place] [address] [facility] [place] [address] [place] [address] Referral ID Status Reason Start Date Expiration Date Visits Requested Visits Authorized [id number] Pending Review Auto-Generat ed Referral 06/11/2024 06/11/2025 1 1 Specialty Diagnoses / Procedures Referred By Contac t Referred To Contact Physical Therapy Diagnoses Weakness of both lower extremities Gait instability Primary osteoarthritis of both knees S/P total right hip arthroplasty Procedures CONSULT TO PHYSICAL THERAPY Adeel Hayes MD [address] [place] [address] Referral ID Status Reason Start Date Expiration Date Visits Requested Visits Authorized [id number] Authorized PCP Requested Referral 10/29/2024 10/29/2025 1 1 Advance Directives Documents on File Type Date Recorded 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 Advance Directive(s) 04/24/2016 3:37 PM Advance Directive(s) 11/23/2006 12:00 AM Documents on File Type Date Recorded 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 Advance Directive(s) 04/24/2016 3:37 PM Advance Directive(s) 11/23/2006 12:00 AM Documents on File Type Date Recorded 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 Advance Directive(s) 04/24/2016 3:37 PM Advance Directive(s) 11/23/2006 Documents on File Type Date Recorded 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 Advance Directive(s) 04/24/2016 3:37 PM Advance Directive(s) 11/23/2006 Advance Directive Response Recorded Date/ Time Advance Directives Yes June 8:34am Living Will Yes November 24 2:30pm Power of Picker / Packer Yes November 24, 2020 2:30pm Family History Relationship Condition Age at Onset Recorded Date/T barrie mother Cardiac arrhythmia Unknown Malignant neoplasm Unknown father Myocardial infarction Unknown Coronary artery disease Unknown Bilateral carotid artery disease Unknown Chief Complaint and Reason for Visit Chief Complaint Paresthesia of skin Paresthesia of skin Summary Purpose Additional Source Comments Source Comments (unrecognize d section and content) In the event this informatio n is protected by the Federal Confidentiality of Alcohol and Drug Abuse Patient Records regulations: The Federal rules restrict any use of the information to criminally investigate or prosecute any alcohol or drug abuse patient.[facility] the event this information is protected by the Federal Confidentiality of Alcohol and Drug Abuse Patient Records regulations: The Federal rules restrict any use of the information to criminally investigate or prosecute any alcohol or drug abuse patient.[facility] HospitalIn the event this information is protected by the Federal Confidentiality of Alcohol and Drug Abuse Patient Records regulations: The Federal rules restrict any use of the information to criminally investigate or prosecute any alcohol or drug abuse patient.[facility] HospitalIn the event this information is protected by the Federal Confidentiality of Alcohol and Drug Abuse Patient Records regulations: The Federal rules restrict any use of the information to criminally investigate or prosecute any alcohol or drug abuse patient.[facility] HospitalIn the event this information is protected by the Federal Confidentiality of Alcohol and Drug Abuse Patient Records regulations: The Federal rules restrict any use of the information to criminally investigate or prosecute any alcohol or drug abuse patient.[facility] HospitalIn the event this information is protected by the Federal Confidentiality of Alcohol and Drug Abuse Patient Records regulations: The Federal rules restrict any use of the information to criminally investigate or prosecute any alcohol or drug abuse patient.[facility] HospitalIn the event this information is protected by the Federal Confidentiality of Alcohol and Drug Abuse Patient Records regulations: The Federal rules restrict any use of the information to criminally investigate or prosecute any alcohol or drug abuse patient.[facility] HospitalIn the event this information is protected by the Federal Confidentiality of Alcohol and Drug Abuse Patient Records regulations: The Federal rules restrict any use of the information to criminally investigate or prosecute any alcohol or drug abuse patient.[facility] HospitalIn the event this information is protected by the Federal Confidentiality of Alcohol and Drug Abuse Patient Records regulations: The Federal rules restrict any use of the information to criminally investigate or prosecute any alcohol or drug abuse patient.[facility] HospitalIn the event this information is protected by the Federal Confidentiality of Alcohol and Drug Abuse Patient Records regulations: The Federal rules restrict any use of the information to criminally investigate or prosecute any alcohol or drug abuse patient.[facility] HospitalIn the event this information is protected by the Federal Confidentiality of Alcohol and Drug Abuse Patient Records regulations: The Federal rules restrict any use of the information to criminally investigate or prosecute any alcohol or drug abuse patient.[facility] HospitalIn the event this information is protected by the Federal Confidentiality of Alcohol and Drug Abuse Patient Records regulations: The Federal rules restrict any use of the information to criminally investigate or prosecute any alcohol or drug abuse patient.[facility] HospitalIn the event this information is protected by the Federal Confidentiality of Alcohol and Drug Abuse Patient Records regulations: The Federal rules restrict any use of the information to criminally investigate or prosecute any alcohol or drug abuse patient.[facility] HospitalIn the event this information is protected by the Federal Confidentiality of Alcohol and Drug Abuse Patient Records regulations: The Federal rules restrict any use of the information to criminally investigate or prosecute any alcohol or drug abuse patient.[facility] HospitalIn the event this information is protected by the Federal Confidentiality of Alcohol and Drug Abuse Patient Records regulations: The Federal rules restrict any use of the information to criminally investigate or prosecute any alcohol or drug abuse patient.[facility] HospitalIn the event this information is protected by the Federal Confidentiality of Alcohol and Drug Abuse Patient Records regulations: The Federal rules restrict any use of the information to criminally investigate or prosecute any alcohol or drug abuse patient.[facility] HospitalIn the event this information is protected by the Federal Confidentiality of Alcohol and Drug Abuse Patient Records regulations: The Federal rules restrict any use of the information to criminally investigate or prosecute any alcohol or drug abuse patient.[facility] HospitalIn the event this information is protected by the Federal Confidentiality of Alcohol and Drug Abuse Patient Records regulations: The Federal rules restrict any use of the information to criminally investigate or prosecute any alcohol or drug abuse patient.[facility] HospitalIn the event this information is protected by the Federal Confidentiality of Alcohol and Drug Abuse Patient Records regulations: The Federal rules restrict any use of the information to criminally investigate or prosecute any alcohol or drug abuse patient.[facility] HospitalIn the event this information is protected by the Federal Confidentiality of Alcohol and Drug Abuse Patient Records regulations: The Federal rules restrict any use of the information to criminally investigate or prosecute any alcohol or drug abuse patient.[facility] HospitalIn the event this information is protected by the Federal Confidentiality of Alcohol and Drug Abuse Patient Records regulations: The Federal rules restrict any use of the information to criminally investigate or prosecute any alcohol or drug abuse patient.[facility] HospitalIn the event this information is protected by the Federal Confidentiality of Alcohol and Drug Abuse Patient Records regulations: The Federal rules restrict any use of the information to criminally investigate or prosecute any alcohol or drug abuse patient.[facility] HospitalIn the event this information is protected by the Federal Confidentiality of Alcohol and Drug Abuse Patient Records regulations: The Federal rules restrict any use of the information to criminally investigate or prosecute any alcohol or drug abuse patient.[facility] HospitalIn the event this information is protected by the Federal Confidentiality of Alcohol and Drug Abuse Patient Records regulations: The Federal rules restrict any use of the information to criminally investigate or prosecute any alcohol or drug abuse patient.[facility] HospitalIn the event this information is protected by the Federal Confidentiality of Alcohol and Drug Abuse Patient Records regulations: The Federal rules restrict any use of the information to criminally investigate or prosecute any alcohol or drug abuse patient.[facility] HospitalIn the event this information is protected by the Federal Confidentiality of Alcohol and Drug Abuse Patient Records regulations: The Federal rules restrict any use of the information to criminally investigate or prosecute any alcohol or drug abuse patient.[facility] HospitalIn the event this information is protected by the Federal Confidentiality of Alcohol and Drug Abuse Patient Records regulations: The Federal rules restrict any use of the information to criminally investigate or prosecute any alcohol or drug abuse patient.[facility] HospitalIn the event this information is protected by the Federal Confidentiality of Alcohol and Drug Abuse Patient Records regulations: The Federal rules restrict any use of the information to criminally investigate or prosecute any alcohol or drug abuse patient.[facility] HospitalIn the event this information is protected by the Federal Confidentiality of Alcohol and Drug Abuse Patient Records regulations: The Federal rules restrict any use of the information to criminally investigate or prosecute any alcohol or drug abuse patient.[facility] HospitalIn the event this information is protected by the Federal Confidentiality of Alcohol and Drug Abuse Patient Records regulations: The Federal rules restrict any use of the information to criminally investigate or prosecute any alcohol or drug abuse patient.[facility] HospitalIn the event this information is protected by the Federal Confidentiality of Alcohol and Drug Abuse Patient Records regulations: The Federal rules restrict any use of the information to criminally investigate or prosecute any alcohol or drug abuse patient.[facility] HospitalIn the event this information is protected by the Federal Confidentiality of Alcohol and Drug Abuse Patient Records regulations: The Federal rules restrict any use of the information to criminally investigate or prosecute any alcohol or drug abuse patient.[facility] HospitalIn the event this information is protected by the Federal Confidentiality of Alcohol and Drug Abuse Patient Records regulations: The Federal rules restrict any use of the information to criminally investigate or prosecute any alcohol or drug abuse patient.[facility] HospitalIn the event this information is protected by the Federal Confidentiality of Alcohol and Drug Abuse Patient Records regulations: The Federal rules restrict any use of the information to criminally investigate or prosecute any alcohol or drug abuse patient.[facility] HospitalIn the event this information is protected by the Federal Confidentiality of Alcohol and Drug Abuse Patient Records regulations: The Federal rules restrict any use of the information to criminally investigate or prosecute any alcohol or drug abuse patient.[facility] HospitalIn the event this information is protected by the Federal Confidentiality of Alcohol and Drug Abuse Patient Records regulations: The Federal rules restrict any use of the information to criminally investigate or prosecute any alcohol or drug abuse patient.[facility] HospitalIn the event this information is protected by the Federal Confidentiality of Alcohol and Drug Abuse Patient Records regulations: The Federal rules restrict any use of the information to criminally investigate or prosecute any alcohol or drug abuse patient.[facility] HospitalIn the event this information is protected by the Federal Confidentiality of Alcohol and Drug Abuse Patient Records regulations: The Federal rules restrict any use of the information to criminally investigate or prosecute any alcohol or drug abuse patient.[facility] HospitalIn the event this information is protected by the Federal Confidentiality of Alcohol and Drug Abuse Patient Records regulations: The Federal rules restrict any use of the information to criminally investigate or prosecute any alcohol or drug abuse patient.[facility] HospitalIn the event this information is protected by the Federal Confidentiality of Alcohol and Drug Abuse Patient Records regulations: The Federal rules restrict any use of the information to criminally investigate or prosecute any alcohol or drug abuse patient.[facility] HospitalIn the event this information is protected by the Federal Confidentiality of Alcohol and Drug Abuse Patient Records regulations: The Federal rules restrict any use of the information to criminally investigate or prosecute any alcohol or drug abuse patient.[facility] HospitalIn the event this information is protected by the Federal Confidentiality of Alcohol and Drug Abuse Patient Records regulations: The Federal rules restrict any use of the information to criminally investigate or prosecute any alcohol or drug abuse patient.[facility] HospitalIn the event this information is protected by the Federal Confidentiality of Alcohol and Drug Abuse Patient Records regulations: The Federal rules restrict any use of the information to criminally investigate or prosecute any alcohol or drug abuse patient.[facility] HospitalIn the event this information is protected by the Federal Confidentiality of Alcohol and Drug Abuse Patient Records regulations: The Federal rules restrict any use of the information to criminally investigate or prosecute any alcohol or drug abuse patient.[facility] HospitalIn the event this information is protected by the Federal Confidentiality of Alcohol and Drug Abuse Patient Records regulations: The Federal rules restrict any use of the information to criminally investigate or prosecute any alcohol or drug abuse patient.[facility] HospitalIn the event this information is protected by the Federal Confidentiality of Alcohol and Drug Abuse Patient Records regulations: The Federal rules restrict any use of the information to criminally investigate or prosecute any alcohol or drug abuse patient.[facility] HospitalIn the event this information is protected by the Federal Confidentiality of Alcohol and Drug Abuse Patient Records regulations: The Federal rules restrict any use of the information to criminally investigate or prosecute any alcohol or drug abuse patient.[facility] HospitalIn the event this information is protected by the Federal Confidentiality of Alcohol and Drug Abuse Patient Records regulations: The Federal rules restrict any use of the information to criminally investigate or prosecute any alcohol or drug abuse patient.[facility] HospitalIn the event this information is protected by the Federal Confidentiality of Alcohol and Drug Abuse Patient Records regulations: The Federal rules restrict any use of the information to criminally investigate or prosecute any alcohol or drug abuse patient.[facility] HospitalIn the event this information is protected by the Federal Confidentiality of Alcohol and Drug Abuse Patient Records regulations: The Federal rules restrict any use of the information to criminally investigate or prosecute any alcohol or drug abuse patient.[facility] HospitalIn the event this information is protected by the Federal Confidentiality of Alcohol and Drug Abuse Patient Records regulations: The Federal rules restrict any use of the information to criminally investigate or prosecute any alcohol or drug abuse patient.[facility] HospitalIn the event this information is protected by the Federal Confidentiality of Alcohol and Drug Abuse Patient Records regulations: The Federal rules restrict any use of the information to criminally investigate or prosecute any alcohol or drug abuse patient.[facility] HospitalIn the event this information is protected by the Federal Confidentiality of Alcohol and Drug Abuse Patient Records regulations: The Federal rules restrict any use of the information to criminally investigate or prosecute any alcohol or drug abuse patient.[facility] HospitalIn the event this information is protected by the Federal Confidentiality of Alcohol and Drug Abuse Patient Records regulations: The Federal rules restrict any use of the information to criminally investigate or prosecute any alcohol or drug abuse patient.[facility] HospitalIn the event this information is protected by the Federal Confidentiality of Alcohol and Drug Abuse Patient Records regulations: The Federal rules restrict any use of the information to criminally investigate or prosecute any alcohol or drug abuse patient.[facility] HospitalIn the event this information is protected by the Federal Confidentiality of Alcohol and Drug Abuse Patient Records regulations: The Federal rules restrict any use of the information to criminally investigate or prosecute any alcohol or drug abuse patient.[facility] HospitalIn the event this information is protected by the Federal Confidentiality of Alcohol and Drug Abuse Patient Records regulations: The Federal rules restrict any use of the information to criminally investigate or prosecute any alcohol or drug abuse patient.[facility] HospitalIn the event this information is protected by the Federal Confidentiality of Alcohol and Drug Abuse Patient Records regulations: The Federal rules restrict any use of the information to criminally investigate or prosecute any alcohol or drug abuse patient.[facility] HospitalIn the event this information is protected by the Federal Confidentiality of Alcohol and Drug Abuse Patient Records regulations: The Federal rules restrict any use of the information to criminally investigate or prosecute any alcohol or drug abuse patient.[facility] HospitalIn the event this information is protected by the Federal Confidentiality of Alcohol and Drug Abuse Patient Records regulations: The Federal rules restrict any use of the information to criminally investigate or prosecute any alcohol or drug abuse patient.[facility] HospitalIn the event this information is protected by the Federal Confidentiality of Alcohol and Drug Abuse Patient Records regulations: The Federal rules restrict any use of the information to criminally investigate or prosecute any alcohol or drug abuse patient.[facility] HospitalIn the event this information is protected by the Federal Confidentiality of Alcohol and Drug Abuse Patient Records regulations: The Federal rules restrict any use of the information to criminally investigate or prosecute any alcohol or drug abuse patient.[facility] HospitalIn the event this information is protected by the Federal Confidentiality of Alcohol and Drug Abuse Patient Records regulations: The Federal rules restrict any use of the information to criminally investigate or prosecute any alcohol or drug abuse patient.[facility] HospitalIn the event this information is protected by the Federal Confidentiality of Alcohol and Drug Abuse Patient Records regulations: The Federal rules restrict any use of the information to criminally investigate or prosecute any alcohol or drug abuse patient.[facility] HospitalIn the event this information is protected by the Federal Confidentiality of Alcohol and Drug Abuse Patient Records regulations: The Federal rules restrict any use of the information to criminally investigate or prosecute any alcohol or drug abuse patient.[facility] HospitalIn the event this information is protected by the Federal Confidentiality of Alcohol and Drug Abuse Patient Records regulations: The Federal rules restrict any use of the information to criminally investigate or prosecute any alcohol or drug abuse patient.[facility] HospitalIn the event this information is protected by the Federal Confidentiality of Alcohol and Drug Abuse Patient Records regulations: The Federal rules restrict any use of the information to criminally investigate or prosecute any alcohol or drug abuse patient.[facility] HospitalIn the event this information is protected by the Federal Confidentiality of Alcohol and Drug Abuse Patient Records regulations: The Federal rules restrict any use of the information to criminally investigate or prosecute any alcohol or drug abuse patient.[facility] HospitalIn the event this information is protected by the Federal Confidentiality of Alcohol and Drug Abuse Patient Records regulations: The Federal rules restrict any use of the information to criminally investigate or prosecute any alcohol or drug abuse patient.[facility] HospitalIn the event this information is protected by the Federal Confidentiality of Alcohol and Drug Abuse Patient Records regulations: The Federal rules restrict any use of the information to criminally investigate or prosecute any alcohol or drug abuse patient.[facility] HospitalIn the event this information is protected by the Federal Confidentiality of Alcohol and Drug Abuse Patient Records regulations: The Federal rules restrict any use of the information to criminally investigate or prosecute any alcohol or drug abuse patient.[facility] HospitalIn the event this information is protected by the Federal Confidentiality of Alcohol and Drug Abuse Patient Records regulations: The Federal rules restrict any use of the information to criminally investigate or prosecute any alcohol or drug abuse patient.[facility] HospitalIn the event this information is protected by the Federal Confidentiality of Alcohol and Drug Abuse Patient Records regulations: The Federal rules restrict any use of the information to criminally investigate or prosecute any alcohol or drug abuse patient.[facility] HospitalIn the event this information is protected by the Federal Confidentiality of Alcohol and Drug Abuse Patient Records regulations: The Federal rules restrict any use of the information to criminally investigate or prosecute any alcohol or drug abuse patient.[facility] HospitalIn the event this information is protected by the Federal Confidentiality of Alcohol and Drug Abuse Patient Records regulations: The Federal rules restrict any use of the information to criminally investigate or prosecute any alcohol or drug abuse patient.[facility] HospitalIn the event this information is protected by the Federal Confidentiality of Alcohol and Drug Abuse Patient Records regulations: The Federal rules restrict any use of the information to criminally investigate or prosecute any alcohol or drug abuse patient.[facility] HospitalIn the event this information is protected by the Federal Confidentiality of Alcohol and Drug Abuse Patient Records regulations: The Federal rules restrict any use of the information to criminally investigate or prosecute any alcohol or drug abuse patient.[facility] HospitalIn the event this information is protected by the Federal Confidentiality of Alcohol and Drug Abuse Patient Records regulations: The Federal rules restrict any use of the information to criminally investigate or prosecute any alcohol or drug abuse patient.[facility] HospitalIn the event this information is protected by the Federal Confidentiality of Alcohol and Drug Abuse Patient Records regulations: The Federal rules restrict any use of the information to criminally investigate or prosecute any alcohol or drug abuse patient.[facility] HospitalIn the event this information is protected by the Federal Confidentiality of Alcohol and Drug Abuse Patient Records regulations: The Federal rules restrict any use of the information to criminally investigate or prosecute any alcohol or drug abuse patient.[facility] HospitalIn the event this information is protected by the Federal Confidentiality of Alcohol and Drug Abuse Patient Records regulations: The Federal rules restrict any use of the information to criminally investigate or prosecute any alcohol or drug abuse patient.[facility] HospitalIn the event this information is protected by the Federal Confidentiality of Alcohol and Drug Abuse Patient Records regulations: The Federal rules restrict any use of the information to criminally investigate or prosecute any alcohol or drug abuse patient.[facility] HospitalIn the event this information is protected by the Federal Confidentiality of Alcohol and Drug Abuse Patient Records regulations: The Federal rules restrict any use of the information to criminally investigate or prosecute any alcohol or drug abuse patient.[facility] HospitalIn the event this information is protected by the Federal Confidentiality of Alcohol and Drug Abuse Patient Records regulations: The Federal rules restrict any use of the information to criminally investigate or prosecute any alcohol or drug abuse patient.[facility] HospitalIn the event this information is protected by the Federal Confidentiality of Alcohol and Drug Abuse Patient Records regulations: The Federal rules restrict any use of the information to criminally investigate or prosecute any alcohol or drug abuse patient.[facility] HospitalIn the event this information is protected by the Federal Confidentiality of Alcohol and Drug Abuse Patient Records regulations: The Federal rules restrict any use of the information to criminally investigate or prosecute any alcohol or drug abuse patient.[facility] HospitalIn the event this information is protected by the Federal Confidentiality of Alcohol and Drug Abuse Patient Records regulations: The Federal rules restrict any use of the information to criminally investigate or prosecute any alcohol or drug abuse patient.[facility] HospitalIn the event this information is protected by the Federal Confidentiality of Alcohol and Drug Abuse Patient Records regulations: The Federal rules restrict any use of the information to criminally investigate or prosecute any alcohol or drug abuse patient.[facility] HospitalIn the event this information is protected by the Federal Confidentiality of Alcohol and Drug Abuse Patient Records regulations: The Federal rules restrict any use of the information to criminally investigate or prosecute any alcohol or drug abuse patient.[facility] Reason for Visit (unrecogniz ed section and content) Reason Onset Date Comments Refill Request 12/30/2021 Reason Comments Patient Question Reason Comments Medication Question Reason Onset Date Comments Refill Request 03/28/2022 Reason Comments Follow Up Reason Comments Results, Lab Reason Onset Date Comments Refill Request 04/06/2022 Reason Onset Date Comments Refill Request 04/07/2022 Reason Onset Date Comments Refill Request 06/21/2022 Reason Comments Flu Shot reaction Reason Onset Date Comments Refill Request 08/18/2022 Reason Comments Trauma Fell and hurt right hand and hip x 3 hrs ago Reason Comments Patient Question Patient Update Reason Comments yeast infectioin in folds of stomach X 3 -4 days Reason Comments Orders Reason Comments Established Patient Broke right arm and needi ng Home Health to assist with care Reason Comments requesting medication yeast infection Reason Comments Rash Pt reported red rash located groin area, x2 days. Reason Comments Pain Reason Onset Date Comments Refill Request 12/12/2022 Reason Onset Date Comments Refill Request 12/20/2022 Reason Comments Insect Bite Reason Comments Medication Question Constipation Reason Comments Referral Request Reason Comments New Specialty Diagnoses / Procedures Referred By Kevin huynh Referred To Contact Podiatry Diagnoses Toenail deformity Procedures CONSULT TO PODIATRY OFFICE/OUTPATIENT NEW HIGH MDM 60-74 MINUTES Enriqueta Otto, ALLA.DYNAMOMETER TESTER ENGINE [address] [place] [address] Referral ID Status Reason Start Date Expiration Date Visits Requested Visits Authorized [id number] Pending Review PCP Requested Referral 03/26/2023 03/25/2024 1 1 Reason Onset Date Comments Refill Request 06/08/2023 Refill Request 07/02/2023 Reason Onset Date Comments Refill Request 08/07/2023 Reason Comments patient questions Reason Comments Refill Request Reason Comments Established Patient Follow Up nail care Reason Comments F/U 6 months Reason Comments Letter Reason Comments balance issues Fall Patient reports havi ng a couple falls and ortho advised for patient to follow up with PCP Fatigue Patient reports not having any stamina Reason Comments Patient Update Reason Comments Established Patient Debridement of Nail Reason Onset Date Comments Population Health Navigation Outreach 12/21/2023 [employer] care gaps Reason Comments 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 Treating with Imodium which seems to be helping.Question is something she eat that caused diarrhea Fall is questioning if th e doxepin is causing these falls usually during the middle of night when she wakes up to go potty.stated falls did not start until after she had hip replacement Reason Comments referral to [facility] Reason Comments Opened In Error Reason Comments Medicare Wellness Exam Reason Comments Medication Problem Reason Comments Insurance Authorization Reason Comments Patient Update Patient Question Reason Comments Orders for admission Reason Comments Patient Question Orders Reason Comments Same Day Appointment Balance issues Reason Comments Provider takes insurance Reason Onset Date Comments Refill Request 11/03/2024 Reason Comments Patient Request Reason Comments [facility]- verbal orders needed Reason Comments Forms Reason Comments verbal orders Reason Onset Date Comments Home Care 12/16/2024 Reason Comments report a fall on 12/17/2024 Reason Comments Electronic Communication [place] [facility] Teams (unrecognized sec tion and content) Business Intelligence Etl Developer Relationship Specialty Start Date End Date Adeel Hayes MD [address] [place] [id number] PCP - General 09/16/03 Business Intelligence Etl Developer Relationship Specialty Start Date End Date Adeel Hayes MD [address] [place] [address] PCP - General 09/16/03 Business Intelligence Etl Developer Relationship Specialty Start Date End Date Adeel Hayes MD [address] [place] [address] PCP - General 09/16/03 Business Intelligence Etl Developer Relationship Specialty Start Date End Date Adeel Hayes MD [address] [place] [address] PCP - General 09/16/03 Business Intelligence Etl Developer Relationship Specialty Start Date End Date Adeel Hayes MD [address] [place] [address] PCP - General 09/16/03 Business Intelligence Etl Developer Relationship Specialty Start Date End Date Adeel Hayes MD [address] [place] [address] PCP - General 09/16/03 Business Intelligence Etl Developer Relationship Specialty Start Date End Date Adeel Hayes MD [address] [place] [address] PCP - General 09/16/03 Business Intelligence Etl Developer Relationship Specialty Start Date End Date Adeel Hayes MD [address] [place] [address] PCP - General 09/16/03 Business Intelligence Etl Developer Relationship Specialty Start Date End Date Adeel Hayes MD [address] [place] [address] PCP - General 09/16/03 Business Intelligence Etl Developer Relationship Specialty Start Date End Date Adeel Hayes MD [address] [place] [address] PCP - General 09/16/03 Business Intelligence Etl Developer Relationship Specialty Start Date End Date Adeel Hayes MD [address] [place] [address] PCP - General 09/16/03 Business Intelligence Etl Developer Relationship Specialty Start Date End Date Adeel Hayes MD [address] [place] [address] PCP - General 09/16/03 Business Intelligence Etl Developer Relationship Specialty Start Date End Date Adeel Hayes MD [address] [place] [address] PCP - General 09/16/03 Business Intelligence Etl Developer Relationship Specialty Start Date End Date Adeel Hayes MD [address] [place] [address] PCP - General 09/16/03 Business Intelligence Etl Developer Relationship Specialty Start Date End Date Adeel Hayes MD [address] [place] [address] PCP - General 09/16/03 Business Intelligence Etl Developer Relationship Specialty Start Date End Date Adeel Hayes MD [address] [place] [address] PCP - General 09/16/03 Team Status: Active Member Role Status Dates Dr. Adeel Hayes MD Family Provider Active Dr. Adeel Hayes MD Primary Care Provider Active Team Status: Active Member Role Status Dates Dr. Adeel Hayes MD Primary Care Provider Active Jeremy OWEN PA-C Referring Provider, Other Provid er Active Dr. Bar Henderson DO Attending Provider Active Team Status: Inactive Member Role Status Dates Dr. Adeel Hayes MD Primary Care Provider Active Jeremy OWEN PA-C Attending Provider, Referring Pr ovider Active Business Intelligence Etl Developer Relationship Specialty Start Date End Date Adeel Hayes MD [address] [place] [address] PCP - General 09/16/03 Business Intelligence Etl Developer Relationship Specialty Start Date End Date Adeel Hayes MD [address] [place] [address] PCP - General 09/16/03 Business Intelligence Etl Developer Relationship Specialty Start Date End Date Adeel Hayes MD [address] [place] [address] PCP - General 09/16/03 Business Intelligence Etl Developer Relationship Specialty Start Date End Date Adeel Hayes MD [address] [place] [address] PCP - General 09/16/03 Business Intelligence Etl Developer Relationship Specialty Start Date End Date Adeel Hayes MD [address] [place] [address] PCP - General 09/16/03 Business Intelligence Etl Developer Relationship Specialty Start Date End Date Adeel Hayes MD [address] [place] [address] PCP - General 09/16/03 Business Intelligence Etl Developer Relationship Specialty Start Date End Date Adeel Hayes MD [address] [place] [address] PCP - General 09/16/03 Business Intelligence Etl Developer Relationship Specialty Start Date End Date Adeel Hayes MD [address] [place] [address] PCP - General 09/16/03 Business Intelligence Etl Developer Relationship Specialty Start Date End Date Adeel Hayes MD [address] [place] [address] PCP - General 09/16/03 Business Intelligence Etl Developer Relationship Specialty Start Date End Date Adeel Hayes MD [address] [place] [address] PCP - General 09/16/03 Business Intelligence Etl Developer Relationship Specialty Start Date End Date Adeel Hayes MD [address] [place] [address] PCP - General 09/16/03 Business Intelligence Etl Developer Relationship Specialty Start Date End Date Adeel Hayes MD [address] [place] [address] PCP - General 09/16/03 Business Intelligence Etl Developer Relationship Specialty Start Date End Date Adeel Hayes MD [address] [place] [address] PCP - General 09/16/03 Business Intelligence Etl Developer Relationship Specialty Start Date End Date Adeel Hayes MD [address] [place] [address] PCP - General 09/16/03 Business Intelligence Etl Developer Relationship Specialty Start Date End Date Adeel Hayes MD [address] [place] [address] PCP - General 09/16/03 Business Intelligence Etl Developer Relationship Specialty Start Date End Date Adeel Hayes MD [address] [place] [address] PCP - General 09/16/03 Business Intelligence Etl Developer Relationship Specialty Start Date End Date Adeel Hayes MD [address] [place] [address] PCP - General 09/16/03 Business Intelligence Etl Developer Relationship Specialty Start Date End Date Adeel Hayes MD [address] [place] [address] PCP - General 09/16/03 Business Intelligence Etl Developer Relationship Specialty Start Date End Date Adeel Hayes MD [address] [place] [address] PCP - General 09/16/03 Business Intelligence Etl Developer Relationship Specialty Start Date End Date Adeel Hayes MD [address] [place] [address] PCP - General 09/16/03 Business Intelligence Etl Developer Relationship Specialty Start Date End Date Adeel Hayes MD [address] [place] [address] PCP - General 09/16/03 Business Intelligence Etl Developer Relationship Specialty Start Date End Date Adeel Hayes MD [address] [place] [address] PCP - General 09/16/03 Business Intelligence Etl Developer Relationship Specialty Start Date End Date Adeel Hayes MD [address] [place] [address] PCP - General 09/16/03 Business Intelligence Etl Developer Relationship Specialty Start Date End Date Adeel Hayes MD [address] [place] [address] PCP - General 09/16/03 Business Intelligence Etl Developer Relationship Specialty Start Date End Date Adeel Hayes MD [address] [place] [address] PCP - General 09/16/03 Enriqueta Otto, RETURNER.DYNAMOMETER TESTER ENGINE [address] [place] [address] [facility] 09/15/24 Destini Lee RETURNER.DONOR RELATIONS OFFICER [address] [place] [address] [facility] 09/15/24 Business Intelligence Etl Developer Relationship Specialty Start Date End Date Adeel Hayes MD [address] [place] [address] PCP - General 09/16/03 Enriqueta Otto, RETURNER.DYNAMOMETER TESTER ENGINE [address] [place] [address] [facility] 09/15/24 Destini Lee RETURNER.DONOR RELATIONS OFFICER [address] [place] [address] [facility] 09/15/24 Business Intelligence Etl Developer Relationship Specialty Start Date End Date Adeel Hayes MD [address] [place] [address] PCP - General 09/16/03 Enriqueta Otto, RETURNER.DYNAMOMETER TESTER ENGINE [address] [place] [address] [facility] 09/15/24 Destini Lee RETURNER.DONOR RELATIONS OFFICER [address] [place] [address] [facility] 09/15/24 Business Intelligence Etl Developer Relationship Specialty Start Date End Date Adeel Hayes MD [address] [place] [address] PCP - General 09/16/03 Enriqueta Otto, RETURNER.DYNAMOMETER TESTER ENGINE [address] [place] [address] [facility] 09/15/24 Destini Lee APRN.DONOR RELATIONS OFFICER [address] [place] [address] [facility] 09/15/24 Business Intelligence Etl Developer Relationship Specialty Start Date End Date Adeel Hayes MD [address] [place] [address] PCP - General 09/16/03 Enriqueta Otto, RETURNER.DYNAMOMETER TESTER ENGINE [address] [place] [address] [facility] 09/15/24 Destini Lee RETURNER.DONOR RELATIONS OFFICER [address] [place] [address] [facility] 09/15/24 Business Intelligence Etl Developer Relationship Specialty Start Date End Date Adeel Hayes MD [address] [place] [address] PCP - General 09/16/03 Enriqueta Otto RETURNER.DYNAMOMETER TESTER ENGINE [address] [place] [address] [facility] 09/15/24 Destini Lee RETURNER.DONOR RELATIONS OFFICER [address] [place] [address] [facility] 09/15/24 Business Intelligence Etl Developer Relationship Specialty Start Date End Date Adeel Hayes MD [address] [place] [address] PCP - General 09/16/03 Enriqueta Otto RETURNER.DYNAMOMETER TESTER ENGINE [address] [place] [address] [facility] 09/15/24 Destini Lee RETURNER.DONOR RELATIONS OFFICER [address] [place] [address] [facility] 09/15/24 Business Intelligence Etl Developer Relationship Specialty Start Date End Date Adeel Hayes MD [address] [place] [address] PCP - General 09/16/03 Enriqueta Otto, RETURNER.DYNAMOMETER TESTER ENGINE [address] [place] [address] [facility] 09/15/24 Destini Lee RETURNER.DONOR RELATIONS OFFICER [address] [facility] [place] [address] [facility] 09/15/24 Business Intelligence Etl Developer Relationship Specialty Start Date End Date Adeel Hayes MD [address] [place] [address] PCP - General 09/16/03 Enriqueta Otto, RETURNER.DYNAMOMETER TESTER ENGINE [address] [place] [address] [facility] 09/15/24 Destini Lee RETURNER.DONOR RELATIONS OFFICER [address] [place] [address] [facility] 09/15/24 Business Intelligence Etl Developer Relationship Specialty Start Date End Date Adeel Hayes MD [address] [place] [address] PCP - General 09/16/03 Enriqueta Otto, RETURNER.DYNAMOMETER TESTER ENGINE [address] [place] [address] [facility] 09/15/24 Destini Lee APRN.DONOR RELATIONS OFFICER [address] [place] [address] [facility] 12/30/24 Business Intelligence Etl Developer Relationship Specialty Start Date End Date Adeel Hayes MD [address] [address] PCP - General 09/16/03 Enriqueta Otto APRN.DYNAMOMETER TESTER ENGINE [address] [facility] [place] [address] [facility] 09/15/24 Destini Lee APRN.DONOR RELATIONS OFFICER [address] [place] [address] [facility] 12/30/24 Business Intelligence Etl Developer Relationship Specialty Start Date End Date Adeel Hayes MD [address] [address] PCP - General 09/16/03 Destini Lee APRN.DONOR RELATIONS OFFICER [address] [address] [facility] 12/30/24 Enriqueta Otto, RETURNER.DYNAMOMETER TESTER ENGINE [address] [place] [address] [facility] 02/25/25 Business Intelligence Etl Developer Relationship Specialty Start Date End Date Adeel Hayes MD [address] [address] PCP - General 09/16/03 Destini Lee APRN.DONOR RELATIONS OFFICER [address] [place] [address] [facility] 12/30/24 Enriqueta Otto APRN.DYNAMOMETER TESTER ENGINE [address] [place] [address] [facility] 02/25/25 Goals (unrecognized section and content) Goals may be documented in a n alternate sectionGoals may be documented in an alternate section INFORMATION SOURCE (unrecogn ized section and content) DATE CREATED AUTHOR 01/29/2025 [facility] DATE CREATED AUTHOR AUTHOR'S FREDDY ATION 04/03/2025 [facility] FOR RECORDS PERTAINING TO PATIENTS WHO ARE OR HAVE BEEN ENROLLED IN A CHEMICAL DEPENDENCY/SUBSTANCEABUSE PROGRAM, SOME INFORMATION MAY BE OMITTED. This clinical summary was aggregated from multiple sources. Caution should be exercised in using it in the provision of clinical care. This summary normalizes information from multiple sources, and as a consequence, information in this document may materially change the coding, format and clinical context of patient data. In addition, data may be omitted in some cases. CLINICAL DECISIONS SHOULD BE BASED ON THE PRIMARY CLINICAL RECORDS. [employer] [facility]. provides no warranty or guarantee of the accuracy or completeness of information in this document.
[2025-04-09 09:18] LABS: Vitamin D,25 Hydroxy 36.1 ng/mL (30-100)
== END ==
LOC: OLS.WHLTSB 05:00
PROVIDERS: PCP Internal Medicine; Visit Provider Internal Medicine
DX: E56.9 Vitamin deficiency, unspecified (principal)
CPT/HCPCS: 36415; 82306

== ENCOUNTER → 2025-07-01 | Outpatient (REF) | payer OTHER, SELFPAY ==
[2025-07-02 09:29] LABS: Color, Urine Yellow (Yellow); Glucose, Dipstick Normal (Normal); Ketone-Dipstick Negative (Negative); Leukocyte Esterase-Dipstick Negative /ul (Negative); Nitrite-Dipstick Negative (Negative); Occult Blood-Urine 10 /ul (Negative); Protein-Dipstick 15 mg/dl (Negative); Specific Gravity, Urine 1.015 (1.002-1.030); Urine Bilirubin Dipstick Negative (Negative)
== END ==
LOC: OLS.WHLTSB 15:00
PROVIDERS: PCP Internal Medicine; Visit Provider Internal Medicine
DX: R31.9 Hematuria, unspecified (principal)
CPT/HCPCS: 81002; 87086

== ENCOUNTER → 2025-07-14 05:20 | Outpatient (REF) | payer OTHER, SELFPAY ==
[2025-07-14 10:00] LABS: Hematocrit 36.9 % (37-47); Hemoglobin 12.2 g/dL (12.0-15.0); Mean Corp Hgb Conc 33.1 g/dL (32-36); Mean Corpuscular Volume 93.7 fL (81-99); Mean Platelet Vol. 10.6 fl (6.2-12.0); Platelet Count 227 K/mm3 (150-450); RBC Distribution Width CV 12.8 % (11.6-14.6); RBC Distribution Width SD 43.8 fl (35.1-43.9); Red Blood Count 3.94 M/mm3 (4.2-5.4); White Blood Count 6.3 K/mm3 (4.4-11.0)
[2025-07-14 10:47] LABS: AST(SGOT) 20 U/L (<=31); Alanine Aminotransfer ALT/SGPT 6 U/L (<=34); Albumin, Serum 3.9 g/dL (3.4-4.8); Alkaline Phosphatase 70 U/L (35-104); Anion Gap 12 (5-15); BUN 22 mg/dL (4-19); BUN/Creat Ratio 28.4 RATIO (10-20); Calcium,Total 9.3 mg/dL (7.6-11.0); Carbon Dioxide 23.3 mmol/L (21.0-32.0); Chloride 106 mmol/L (98-108); Cholesterol 126 mg/dL (<=200); Globulin 2.8 g/dL (2.2-4.2); Glucose 92 mg/dL (70-99); Low Density Lipoprotein Calc. 65 mg/dL; Magnesium 2.3 mg/dL (1.5-2.2); Potassium 4.2 mmol/L (3.3-5.1); Triglycerides 113 mg/dL; Very Low Density Lipoprotein 23 mg/dL (5-40); Vitamin D,25 Hydroxy 33.4 ng/mL (30-100); cholesterol:hdl ratio screen 3.31
== END ==
LOC: OLS.WHLTSB 05:20
PROVIDERS: PCP Internal Medicine; Visit Provider Internal Medicine
DX: I10 Essential (primary) hypertension (principal)
CPT/HCPCS: 36415; 80053; 80061; 82306; 83735; 85027

== ENCOUNTER → 2025-07-15 12:15 | Outpatient (REF) | payer OTHER, SELFPAY ==
[2025-07-16 09:45] LABS: Color, Urine Yellow (Yellow); Glucose, Dipstick Normal (Normal); Ketone-Dipstick Negative (Negative); Leukocyte Esterase-Dipstick Negative /ul (Negative); Nitrite-Dipstick Negative (Negative); Occult Blood-Urine Negative /ul (Negative); Protein-Dipstick 15 mg/dl (Negative); Specific Gravity, Urine 1.020 (1.002-1.030); Urine Bilirubin Dipstick Negative (Negative)
== END ==
LOC: OLS.WHLTSB 12:15
PROVIDERS: PCP Internal Medicine; Visit Provider Internal Medicine
DX: R31.9 Hematuria, unspecified (principal); F42.4 Excoriation (skin-picking) disorder; R19.7 Diarrhea, unspecified; E56.9 Vitamin deficiency, unspecified; K64.9 Unspecified hemorrhoids; L85.3 Xerosis cutis; L91.8 Other hypertrophic disorders of the skin
CPT/HCPCS: 81002; 87086; 87088

== ENCOUNTER 2025-09-17 10:03 | Inpatient (IN) | payer MEDICARE, SELFPAY ==
[2025-09-17 10:04] VITALS: BP 153/81; PULSE 79; RESP 18; TEMP 36.5; O2SAT 97; BMI 34.6
--- NOTE | 2025-09-17 10:53 | CT_ITS ---
PROCEDURE: BRAIN/HEAD WITHOUT CONTRAST 09/17/2025 REASON FOR EXAM: FALL/INJURY TECHNIQUE: Procedure Code: CTBR Modality: CT Procedure: BRAIN/HEAD WITHOUT CONTRAST Coronal and Sagittal reconstruction series were provided. One or more dose reduction techniques were used (e.g., Automated exposure control, adjustment of the mA and/or kV according to patient size, use of iterative reconstruction technique. FINDINGS: No acute intracranial hemorrhage. Moderate atrophy. The size of the ventricles is slightly disproportionately larger than the sulcal spaces, which raises the concern for possible communicating hydrocephalus, such as NPH. No midline shift. The calvarium is intact. The visualized paranasal sinuses and mastoid air cells are clear. CT/Brain/Head without Contrast IMPRESSION: Moderate atrophy. Disproportionately larger ventricles in comparison to the sulcal spaces, dustin g the concern for possible communicating hydrocephalus, such as NPH. Please correlate clinically. Reading Location: [id number]
--- NOTE | 2025-09-17 10:53 | CT_ITS ---
PROCEDURE: SPINE CERVICAL WITHOUT CONTRAS 09/17/2025 REASON FOR EXAM: NECK TRAUMA/FALL TECHNIQUE: Procedure Code: CTSPC Modality: CT Procedure: SPINE CERVICAL WITHOUT CONTRAS Coronal and Sagittal reconstruction series were provided. One or more dose reduction techniques were used (e.g., Automated exposure control, adjustment of the mA and/or kV according to patient size, use of iterative reconstruction technique. RADIATION DOSE SUMMARY: CTDlvol: 26.8 mGy DLP: 540.45 mGycm COMPARISON: None FINDINGS: Alignment: Straightening of the normal lordosis. Minimal anterior listhesis of C3 on C4 most likely 2nd Vertebrae: Spondylosis. Soft Tissues: No prevertebral soft tissue swelling. Other: Atherosclerotic calcification of the carotid bifurcations. Heterogeneous enlargement of both lobes of the thyroid gland with focal calcification on the left side. C1-2: Degenerative changes of the atlantoaxial joint. C2-3: Mild degree of no stenosis seen. C3-4: Minimal anterior listhesis of C3 on C4. Facet joint osteoarthritis and hypertrophy worse on the right side. Right neural foraminal stenosis. C4-5: Marked degree of disc space narrowing. Spondylosis. Arthritis worse on the right side with a moderate degree of right neural foraminal stenosis. C5-6: Marked degree of disc space narrowing. Cord C6-7: Moderate degree of disc space narrowing. Uncovertebral arthrosis. C7-T1: Disc space narrowing. CT/Spine Cervical without Contras IMPRESSION: Multilevel disc space narrowing with the neural foraminal stenosis as described . Reading Location: [place] [id number]
--- NOTE | 2025-09-17 10:54 | ED.VIS.FALL ---
HPI HPI - Fall History of Present Illness Chief Complaint: Fall Informant: patient and EMS Narrative Narrative: Patient is a 80-year-old female with a history of recurrent falls presenting to the ED after a fall this morning. - Reports recurrent falls over the past 5-6 months, describing a sensation as if somebody is pushing me from behind and I can't control my equilibrium. Occurred this morning just after standing up to attempting to go to the bathroom in her assisted living facility, resulting in a fall. - During the fall, she hit her right upper back and neck; uncertain if she hit her head, but denies headache. Also pain in right hip; states prior IQRA on right. - Denies loss of consciousness and remembers the entire event. - Denies abdominal pain. Denies shortness of breath. - Uses a walker, but reports it does not prevent falls; was using it at the time of the fall. - Has been referred to a neurologist for recurrent dizziness, which she describes as dangerous and increasing in frequency. - She attributes the fall to a delay in receiving her nighttime medications, which are usually administered before 2300 but were not given until 0200. PFSH PENDING SALE TO [facility] Medical History Carpal tunnel syndrome on right Cellulitis of left upper arm Essential hypertension Nonobstructive atherosclerosis of coronary artery Hyperlipidemia Cholelithiasis Macular degeneration Fibromyalgia GERD (gastroesophageal reflux disease) Home Medications ?Medication ?Instructions ?Recorded ?Last Taken ?Type Leticia Allergy 180 mg PO PRN PRN allergy 05/17/18 Unknown History atenolol 100 mg-chlorthalidone 25 0.5 tab PO DAILY bp 05/17/18 11/24/20 04:00 History mg tablet 0.5 TAB eszopiclone 3 mg tablet 1.5 mg PO QHS 05/17/18 Unknown History omeprazole 20 mg capsule,delayed 20 mg PO DAILY reflux 05/17/18 11/24/20 04:00 History release 20 MG potassium chloride 10 mEq 1 tab PO DAILY 05/17/18 Unknown History capsule,extended release vit A 300 mcg-C 200 mg-E 27 2 tab PO DAILY eye health 05/17/18 Unknown History mg-lutein 2 mg and minerals tablet Oat Bran 1,700 mg PO DAILY supplement 05/29/18 Unknown History calcium 600 mg (as 1 ea PO DAILY supplement 05/29/18 Unknown History carbonate)-vitamin D3 12.5 mcg (500 unit) capsule [id number] 8 mg-folic 400 1 ea PO DAILY supplement 05/29/18 Unknown History mcg-K 50 mcg-lutein 300 mcg tablet vitamin E 268 mg (400 unit) capsule 400 unit PO DAILY supplement 05/29/18 Unknown History cholecalciferol (vitamin D3) 25 1,000 unit PO DAILY 09/12/18 Unknown History mcg (1,000 unit) tablet doxepin 25 mg capsule 25 mg PO QHS 05/20/20 Unknown History gemfibrozil 600 mg tablet 600 mg PO BID #180 tabs 06/03/20 Unknown Rx acetaminophen 500 mg tablet 1,000 mg (2 x 500 mg) PO Q8 #100 11/25/20 Unknown Rx tabs aspirin 81 mg chewable tablet 81 mg PO DAILY 02/13/23 Unknown History peg 3350-electrolytes 236 240 ml PO Q10M PRN #4,000 mL 02/13/23 Unknown Rx gram-22.74 gram-6.74 gram-5.86 gram solution (GaviLyte-G) senna 374 mg tablet mg PO 02/13/23 Unknown History Allergy/AdvReac Type Severity Reaction Status Date / Time ampicillin Allergy Rash Verified 09/17/25 10:07 lisinopril Allergy Rash Verified 09/17/25 10:07 Penicillins (PCN) Allergy Rash Verified 09/17/25 10:07 simvastatin AdvReac Severe Myalgias, Verified 09/17/25 10:07 flu like sx Family History Mother , of cancer Arrhythmia Cancer Father , of [place] Myocardial infarction CAD (coronary artery disease) Carotid disease, bilateral Surgical History History of cholecystectomy (2018) History of left heart catheterization (06/19/18) History of right hip replacement S/P anal fissurectomy Social History Smoking Status: Never smoker alcohol intake: never ROS ROS ED Constitutional Constitutional ED: Denies chills or fever(s) Eyes Eyes: Denies change in vision or diplopia ENT ENT ED: Denies rhinorrhea or sore throat Cardiovascular Cardiovascular: Denies chest pain or palpitations Respiratory/Chest Respiratory/Chest: Denies cough or dyspnea Gastrointestinal Gastrointestinal: Denies abdominal pain, diarrhea, nausea or vomiting Genitourinary Genitourinary ED: Denies dysuria or hematuria Musculoskeletal Musculoskeletal: Reports back pain, neck pain and other Details: R hip pain, in groin Integumentary Denies abscess or rash Neurologic Neurologic: Reports disequilibrium and dizziness; Denies headache(s), paresthesias or weakness Psychiatric Psychiatric: Denies anxiety or suicidal thoughts EXAM Physical Exam Const Vital Signs: 09/17/25 10:04 09/17/25 10:10 09/17/25 14:18 Temperature 97.7 F L 97.8 F Temperature Source Oral Temporal Pulse Rate 79 80 Respiratory Rate 18 20 H Respiratory Effort Normal Non-Labored Respiratory Depth Normal Respiratory Pattern Normal Blood Pressure 153/81 H 139/88 H Blood Pressure Mean 105 105 Pulse Ox 97 97 Oxygen Delivery Method Room Air Room Air Room Air Positive well nourished and well developed General Appearance ED: well developed and NAD HEENT Reports moist mucous membranes normocephalic and atraumatic Eyes PERRL and EOMs intact bilaterally Neck full ROM and supple Neck Narrative: Mild midline tenderness mostly in the lower C-spine no obvious outward evidence of trauma, no step-off. No other spinal tenderness throughout. Resp normal respiratory effort and clear to auscultation bilaterally Cardio regular rate, regular rhythm and no murmurs GI non-tender and non-distended Auscultation: normoactive bowel sounds Palpation: soft Back/Spine no CVA tenderness Back/Spine Narrative: No thoracic or lumbar tenderness. Some mild tenderness at the right scapula focused on the spine and scapula no deformities can range the right shoulder fully without difficulty. General Back: other FROM Extremity normal to inspection Extremity Narrative: Limited range of motion of the right hip due to pain there is no deformity or shortening. She can bend the knee up with some assistance but has some pain with high flexion. Full range of motion of all 4 extremities otherwise. General Extremety ED: Negative for edema, pulses abnormal or tenderness General Extremity: Negative for edema or pulses abnormal Neuro oriented x3, CN's II-XII intact bilaterally and no sensory deficits noted Sensorium / Orientation: awake and alert Motor Exam: strength 5/5 throughout Skin no rashes or lesions noted and no wounds MDM MDM MDM Narrative Medical decision making narrative: A friend arrived and provided additional information. She is falling frequently. She had a walker with her today and still fell, and he feels that she needs a higher level of care. They attempted to make an outpatient Neurology appointment, but there was no availability until January. Today, her CBC and BMP are unremarkable except for mild prerenal azotemia. Regarding imaging, a CT of the head and cervical spine were obtained, both of which show no acute abnormalities. On her head CT, radiology notes ventricular enlargement, which may or may not suggest communicating hydrocephalus or normal pressure hydrocephalus (NPH). 7 views of the left shoulder, in my interpretation, are negative for any fracture or dislocation involving the shoulder girdle, including the scapula. Three views of the right hip, in my interpretation, are negative for any acute pelvic fracture or hip dislocation. Radiology is in agreement with these findings, and I have reviewed their interpretations. Given her recurrent falls and lack of safety in her current assisted living environment, she needs admission for further workup and evaluation for a higher level of care. I do not believe she needs an emergent consult from Stroke Neurology at this time, but an urgent Neurology consultation would be appropriate given her recurrent vertiginous symptoms and frequent falls. There is no evidence of any acute or subacute stroke. History & Record Review Discussion w/independent historian: Friend Lab Data Attestation: I reviewed the patient's lab results. Labs: Laboratory Results - last 24 hr 09/17/25 11:45 WBC 9.9 RBC 4.48 Hgb 13.7 Hct 41.2 MCV 92.0 MCH 30.6 MCHC 33.3 RDW Std Deviation 42.1 RDW Coeff of Alhaji 12.4 Plt Count 235 MPV 10.0 Immature Gran % (Auto) 0.700 Neut % (Auto) 80.7 H Lymph % (Auto) 11.6 L [place] % (Auto) 5.5 Eos % (Auto) 1.1 Baso % (Auto) 0.4 Absolute Neuts (auto) 8.0 H Absolute Lymphs (auto) 1.15 Nucleated RBC % 0 Sodium 141 Potassium 4.2 Chloride 103 Carbon Dioxide 24.3 Anion Gap 14 BUN 22 H Creatinine 0.73 Estim Creat Clear Calc 53.56 Est GFR (MDRD) Non-Af 84 BUN/Creatinine Ratio 30.9 H Glucose 103 H Calcium 9.6 Radiography Diagnostic Testing: Clinical Impression(s) from Imaging Studies Brain CT 09/17/25 10:53 IMPRESSION: Moderate atrophy. Disproportionately larger ventricles in comparison to the sulcal spaces, raising the concern for possible communicating hydrocephalus, such as NPH. Please correlate clinically. Reading Location: [facility] Cervical Spine CT 09/17/25 10:53 IMPRESSION: Multilevel disc space narrowing with the neural foraminal stenosis as described. Reading Location: [facility]IR-1 Hip/Pelvis X-Ray 09/17/25 12:20 IMPRESSION: Status post right total hip replacement. There is good alignment. No fracture or dislocation is seen. [facility] Shoulder X-Ray 09/17/25 12:20 IMPRESSION: As above. Reading Location: [facility] Rhythm Strip Rhythm Strip: Sinus Rhythm Rate: 79 Ectopy: None EKG Initial EKG: Attestation: I personally reviewed and interpreted this EKG as follows: Interpretation: Sinus Rhythm, No Acute Injury Pattern and LAFB Comments: Normal intervals. Poor R wave progression. Prior EKG tracings: available for review Prior: Unchanged Management Discussion w/another healthcare provider: Hospitalist Discharge Plan Dx/Rx/DC Orders Clinical Impression: Dizziness, Repeated falls, Closed head injury without concussion, Acute cervical myofascial strain, Neck contusion, Contusion of right shoulder region, Contusion of hip, right Disposition Disposition: Acute Care [facility]
--- NOTE | 2025-09-17 11:23 | EKG12_ITS ---
Test Reason : FALL Blood Pressure : */* mmHG Vent. Rate : 79 BPM Atrial Rate : 79 BPM P-R Int : 168 ms QRS Dur : 82 ms QT Int : 352 ms P-R-T Axes : 20 -29 154 degrees QTcB Int : 403 ms Normal sinus rhythm Minimal voltage criteria for LVH, may be normal variant ( R in aVL ) Possible Anterior infarct , age undetermined T wave abnormality, consider lateral ischemia Abnormal ECG Confirmed by CARLOS MAGAÑA, GUS ([id number]), editor trade journal KEELY BEDOYA ([id number]) on 09/21/2025 6:25:44 AM Referred By: Confirmed By: GUS GONZALEZ MD
[2025-09-17 11:48] LABS: Hematocrit 41.2 % (37-47); Hemoglobin 13.7 g/dL (12.0-15.0); Immature Granulocytes Count 0.070 X10^3/uL (0.0-0.0); Mean Corp Hgb Conc 33.3 g/dL (32-36); Mean Corpuscular Volume 92.0 fL (81-99); Mean Platelet Vol. 10.0 fl (6.2-12.0); NRBC Flagged by Analyzer 0 % (0-5); Platelet Count 235 K/mm3 (150-450); RBC Distribution Width CV 12.4 % (11.6-14.6); RBC Distribution Width SD 42.1 fl (35.1-43.9); Red Blood Count 4.48 M/mm3 (4.2-5.4); White Blood Count 9.9 K/mm3 (4.4-11.0)
[2025-09-17 12:08] LABS: Anion Gap 14 (5-15); BUN 22 mg/dL (4-19); BUN/Creat Ratio 30.9 RATIO (10-20); Calcium,Total 9.6 mg/dL (7.6-11.0); Carbon Dioxide 24.3 mmol/L (21.0-32.0); Chloride 103 mmol/L (98-108); Estimated Creatinine Clearance 53.56 ml/min (50-250); Glucose 103 mg/dL (70-99); Potassium 4.2 mmol/L (3.3-5.1)
--- NOTE | 2025-09-17 12:20 | RAD_ITS ---
PROCEDURE: HIP, UNI W/ PELVIS 2-3 VIEWS 09/17/2025 REASON FOR EXAM: INJURY TECHNIQUE: Procedure Code: RADHP Modality: DX Procedure: HIP, UNI W/ PELVIS 2-3 VIEWS Laterality: Right hip COMPARISON: Prior study dated November 24, 2020. FINDINGS: Bones: No fracture seen. Joints: The patient is status post right total hip replacement. There is good alignment. Soft tissues: Calcified phleboliths are seen in the right hemipelvis. Other: RAD/HIP, UNI W/ Pelvis 2-3 Views IMPRESSION: Status post right total hip replacement. There is good alignment. No fracture or dislocation is seen. Reading Location: [place] [id number]
--- NOTE | 2025-09-17 12:20 | RAD_ITS ---
PROCEDURE: SHOULDER MIN 2 VIEWS 09/17/2025 REASON FOR EXAM: FALL/SCAPULA INJURY TECHNIQUE: Procedure Code: RADSH Modality: DX Procedure: SHOULDER MIN 2 VIEWS Laterality: Right FINDINGS: Diffuse osteopenia, which mildly limits evaluation. No acute fracture or dislocation. Mild degenerative changes are noted at the acromioclavicular joint. RAD/Shoulder min 2 Views IMPRESSION: As above. Reading Location: [id number]
[2025-09-17 14:18] VITALS: BP 139/88; PULSE 80; RESP 20; TEMP 36.6; O2SAT 97
--- NOTE | 2025-09-17 14:40 | HP.PCM.HOS_ITS ---
HPI - General General Date of Admission: 09/17/25 Date of Service: 09/17/25 Chief Complaint: Falls/syncope HPI Narrative ANAMIKA PERES, is a 80 F who presented to the emergency department [facility] on 09/17/2025 with a chief complaint of falls with questionable syncope. Patient is overall a poor historian. Patient reports that over the last 6 months she has had progressively worsening issues with falls. She states that she feels like she is pushed behind and then wakes up and is on the ground. She states initially this was happening maybe once or twice a month and now it is happening once or twice a week. It happened twice in the last 48 hours so she decided to come to the emergency department to be evaluated. She states she has no urinary incontinence. No chest pain or shortness of breath. She has had no fever or chills and been feeling well otherwise. She states like she feels like she has difficulty getting her words out at times and that she has some memory issues. She is alert and oriented x 3 at the time of my evaluation. She lives alone so none of these events have been witnessed per her report. Vital signs on presentation showed temperature 97.7, heart rate 79, respiratory 18, blood pressure was 153/81 and pulse ox with 97% on room air. CBC was unremarkable other than a left shift with an 80.7% neutrophilia. Her white count was normal however. Chemistry panel was overall unremarkable. I have added on a UA. CT of the cervical spine show degenerative changes without any acute process. Hip and pelvic x-rays were unremarkable for any acute findings. Shoulder x-ray was unremarkable for any acute findings. CT of the brain showed moderate atrophy with disproportionately larger ventricles in comparison to sulci spaces questionable for communicating hydrocephalus such as NPH. It is unclear if patient is having full syncopal episodes or just having disequilibrium and falls. She is overall poor historian and does not have anyone to help relay her health information. [facility] Medical History Carpal tunnel syndrome on right Cellulitis of left upper arm Essential hypertension Nonobstructive atherosclerosis of coronary artery Hyperlipidemia Cholelithiasis Macular degeneration Fibromyalgia GERD (gastroesophageal reflux disease) Home Medications ?Medication ?Instructions ?Recorded ?Last Taken ?Type Leticia Allergy 180 mg PO PRN PRN allergy Unknown History atenolol 100 mg-chlorthalidone 25 0.5 tab PO DAILY bp 05/17/18 11/24/20 04:00 History mg tablet 0.5 TAB eszopiclone 3 mg tablet 1.5 mg PO QHS 05/17/18 Unkno wn History omeprazole 20 mg capsule,delayed 20 mg PO DAILY reflux 05/17/18 11/24/20 04:00 History release 20 MG potassium chloride 10 mEq 1 tab PO DAILY 05/17/18 Unkn own History capsule,extended release vit A 300 mcg-C 200 mg-E 27 2 tab PO DAILY eye health 05/17/18 Unknown History mg-lutein 2 mg and minerals tablet Oat Bran 1,700 mg PO DAILY supplement 05/29/18 Unknown History calcium 600 mg (as 1 ea PO DAILY supplement Unknown History carbonate)-vitamin D3 12.5 mcg (500 unit) capsule [id number] 8 mg-folic 400 1 ea PO DAILY supple ment 05/29/18 Unknown History mcg-K 50 mcg-lutein 300 mcg tablet vitamin E 268 mg (400 unit) capsule 400 unit PO DAILY supplement 05/29/18 Unknown History cholecalciferol (vitamin D3) 25 1,000 unit PO DAILY Unknown History mcg (1,000 unit) tablet doxepin 25 mg capsule 25 mg PO QHS 05/20/20 Unknow n History gemfibrozil 600 mg tablet 600 mg PO BID #180 tabs 05/09 04/26 Unknown Rx acetaminophen 500 mg tablet 1,000 mg (2 x 500 mg) PO Q 8 #100 11/25/20 Unknown Rx tabs aspirin 81 mg chewable tablet 81 mg PO DAILY 02/13/23 Unknown History peg 3350-electrolytes 236 240 ml PO Q10M PRN #4,000 mL 02/13/23 Unknown Rx gram-22.74 gram-6.74 gram-5.86 gram solution (GaviLyte-G) senna 374 mg tablet mg PO 02/13/23 Unknown Histo ry Allergy/AdvReac Type Severity Reaction Status Date / Time ampicillin Allergy Rash Verified 09/17/25 10:07 lisinopril Allergy Rash Verified 09/17/25 10:07 Penicillins (PCN) Allergy Rash Verified 09/17/25 10:07 simvastatin AdvReac Severe Myalgias, Verified 09/17/25 10:07 flu like sx Family History Mother , of cancer Arrhythmia Cancer Father , of [place] Myocardial infarction CAD (coronary artery disease) Carotid disease, bilateral Surgical History History of right hip replacement History of cholecystectomy (2018) History of left heart catheterization (06/19/18) S/P anal fissurectomy Social History (Updated 09/17/25 @ 15:[address] Mayte Esqueda DO) household members: none Smoking Status: Never smoker alcohol intake: never substance use type: does not use ROS Constitutional Constitutional: Reports weakness; Denies anorexia, change in weight, chills, fatigue, fever(s), malaise, night sweats or other Eyes Eyes: Reports other Details: Macular degeneration at baseline with central vision loss ; Denies blurry vision, change in eye color, change in vision, discharge from eye(s), double vision, erythema, eye pain or loss of vision ENT HEENT: Denies abnormal hearing, dysphagia, ear pain, epistaxis, headache(s), hearing loss, nasal congestion, nasal discharge, post nasal drip, sinus pressure, sore throat or other Cardiovascular Cardiovascular: Reports syncope; Denies chest pain, claudication, dyspnea on exertion, edema, lightheadedness, orthopnea, palpitations, paroxysmal nocturnal dyspnea, rapid heart rate or other Respiratory/Chest Respiratory/Chest: Denies cough, dyspnea, excessive phlegm production, hemoptysis, productive cough, shortness of breath at rest, shortness of breath with exertion, wheezing or other Gastrointestinal Gastrointestinal: Denies abdominal pain, coffee ground emesis, constipation, diarrhea, dyspepsia, hematemesis, hematochezia, loose stools, melena, nausea, vomiting or other Genitourinary Genitourinary: Denies burning urination, difficulty urinating, dysuria, hematuria, nocturia, urinary frequency, urinary hesitancy, urinary incontinence, urinary urgency or other Musculoskeletal Musculoskeletal: Reports back pain and neck pain; Denies arthralgias, joint pain, joint stiffness, joint swelling, myalgias or other Neurologic Neurologic: Reports abnormal speech, confusion, disequilibrium and syncope Psychiatric Psychiatric: Denies anxiety, depression, homicidal ideation, suicidal ideation or other Endocrine Endocrinology: Denies change in body appearance, cold intolerance, excessive sweating, heat intolerance, polydipsia, polyuria or other Hematologic/Lymphatic Hematologic/Lymphatic: Denies anemia, easy bleeding, easy bruising, lymphadenopathy or other Allergic/Immunologic Allergic/Immunologic: Denies rhinitis, hives, eczemia, asthma or other Vital Signs Vital Signs Vital Signs: 09/17/25 10:04 09/17/25 10:10 09/17/25 14:18 Temperature 97.7 F L 97.8 F Temperature Source Oral Temporal Pulse Rate 79 80 Respiratory Rate 18 20 H Respiratory Effort Normal Non-Labored Respiratory Depth Normal Respiratory Pattern Normal Blood Pressure 153/81 H 139/88 H Blood Pressure Mean 105 105 Pulse Ox 97 97 Oxygen Delivery Method Room Air Room Air Room Air Weight Weight: 80.5 kg Body Mass Index (BMI) 34.6 Physical Exam Const alert, oriented x3, no apparent distress and well nourished; Negative for average body habitus Constitutional Narrative: Obese, elderly, white female, sitting up in a chair, anxious but pleasant, appears comfortable, does not look toxic General Appearance: cooperative HEENT normocephalic, head/scalp atraumatic, hearing grossly normal bilaterally and moist oral mucous membranes HEENT Narrative: Mallampati 3, dentition is fair Eyes EOMs intact bilaterally and conjunctivae normal Eyes Narrative: No scleral icterus Neck supple Neck Narrative: Trachea midline, no thyroid enlargement, no lymphadenopathy Resp normal respiratory effort, no retractions, no use of accessory muscles and clear to auscultation bilaterally Auscultation: Negative for crackles, rhonchi or wheezes Cardio regular rate, regular rhythm, S1 normal heart sound, S2 normal heart sound, no murmurs, no rub, no gallops and no clicks GI normal to inspection, nondistended, normoactive bowel sounds, soft to palpation and non-tender Extremity no clubbing, cyanosis or edema Extremity Narrative: 2+ pedal pulses Neuro CN's II-XII intact bilaterally, moves all extremities and no focal motor deficits Neuro Narrative: Patient with some word finding issues but speech is clear without any signs of dysarthria, reflexes are 2+ bilateral upper and lower extremities, no clonus Speech: speech normal Psych affect normal Psych Narrative: Eye contact is good and patient interacts appropriately however she is somewhat anxious Mood & Affect: anxious Results Lab / Micro Data 09/17/25 11:45 09/17/25 11:45 Labs: Laboratory Results - last 24 hr 09/17/25 11:45: WBC 9.9, RBC 4.48, Hgb 13.7, Hct 41.2, MCV 92.0, MCH 30.6, MCHC 33.3, RDW Std Deviation 42.1, RDW Coeff of Alhaji 12.4, Plt Count 235, MPV 10.0, Immature Gran % (Auto) 0.700, Neut % (Auto) 80.7 H, Lymph % (Auto) 11.6 L, [place] % (Auto) 5.5, Eos % (Auto) 1.1, Baso % (Auto) 0.4, Absolute Neuts (auto) 8.0 H, Absolute Lymphs (auto) 1.15, Nucleated RBC % 0, Sodium 141, Potassium 4.2, Chloride 103, Carbon Dioxide 24.3, Anion Gap 14, BUN 22 H, Creatinine 0.73, Estim Creat Clear Calc 53.56, Est GFR (MDRD) Non-Af 84, BUN/Creatinine Ratio 30.9 H, Glucose 103 H, Calcium 9.6 Rhythm Strip Rhythm Strip: Sinus Rhythm Rate: 79 Ectopy: None Imaging Radiology Impression Brain CT 09/17/25 10:53 IMPRESSION: Moderate atrophy. Disproportionately larger ventricles in comparison to the sulcal spaces, raising the concern for possible communicating hydrocephalus, such as NPH. Please correlate clinically. Reading Location: [facility] Cervical Spine CT 09/17/25 10:53 IMPRESSION: Multilevel disc space narrowing with the neural foraminal stenosis as described. Reading Location: [facility] Hip/Pelvis X-Ray 09/17/25 12:20 IMPRESSION: Status post right total hip replacement. There is good alignment. No fracture or dislocation is seen. Reading Location: [facility] Shoulder X-Ray 09/17/25 12:20 IMPRESSION: As above. 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: PLAN: Plan Dizziness/repeated falls with possible syncope - Monitor on telemetry for cardiac arrhythmias - If workup is unremarkable may need home with event monitor - Check echocardiogram - MRI with and without contrast of the brain as CT of the brain is suggestive of possible NPH - Check CTA of the head and neck - Discontinue doxepin as this could participate falls in the elderly - Neuro consultation - PT/OT consultation - Case management/social work consultation for assistance with discharge planning Contusion of the right shoulder/right hip/acute cervical myofascial strain - Secondary to the above falls - As needed Tylenol - As needed Toradol for 48 hours - Renal function is normal but will need to watch closely with CTA - As needed K-pad - PT/OT consultation - Imaging is unremarkable for acute findings Ventricular enlargement due to brain atrophy - Suspect this is not normal pressure hydrocephalus - Will obtain MRI of the brain - Neuro consultation - [facility] is in network for patient if this is deemed NPH and transfer is warranted Hyperlipidemia - Continue home gemfibrozil Nonobstructive CAD - Continue home aspirin - Continue home risk factor modification Essential hypertension - Continue home atenolol/chlorthalidone - Monitor blood pressure - Electrolytes are within normal limits Fibromyalgia - Continue home medication Ocular degeneration - could be contributing to falls - Recommend ongoing outpatient follow-up with ophthalmology GERD - Continue PPI Obesity - BMI 34.7 - Recommend weight loss - Complicates treatment, prognosis, outcomes DVT prophylaxis - Subcu Lovenox 40 daily CODE STATUS - CODE STATUS discussed upon admission patient would like to be DNR CCA with no intubation Charges/Coding Visit Charges Inpatient E&M: 96223 Init Hosp L2
--- NOTE | 2025-09-17 14:47 | MRI_ITS ---
PROCEDURE: BRAIN WITHOUT CONTRAST 09/17/2025 REASON FOR EXAM: ?NPH TECHNIQUE: Procedure Code: MRIBR Modality: MR Procedure: BRAIN WITHOUT CONTRAST Multiplanar and multisequence images were obtained. COMPARISON: CT dated earlier on the same day. FINDINGS: Moderate ventriculomegaly, disproportionate with the size of the sulcal spaces. No ventricular obstructing lesion is identified. While this may represent preferential central atrophy, communicating hydrocephalus such as NPH is also a consideration. Mild focal FLAIR hyperintensities throughout the bilateral cerebral white matter are nonspecific but likely represent chronic microvascular ischemic changes. Otherwise the brain parenchyma appears unremarkable. The blake-white matter differentiation is appropriate. No midline shift. The midline structures are intact, specifically the corpus callosum, septum pellucidum, pituitary gland, and cerebellar vermis. The cervicomedullary junction appears unremarkable. The paranasal sinuses and mastoid air cells are clear. Diffusion-weighted images demonstrate no restricted diffusion. MRI/Brain without Contrast IMPRESSION: Moderate ventriculomegaly, disproportionate with the size of the sulcal spaces. This may represent preferential central atrophy. However, communicating hydrocephalus such as NPH is also a consideration. Thes e findings are congruent with the recent CT on the same day. Please correlate clinically. Mild chronic microvascular ischemic changes. Reading Location: [id number]
--- NOTE | 2025-09-17 14:47 | CT_ITS ---
PROCEDURE: CTA HEAD AND NECK W/ CONTRAST 09/17/2025 REASON FOR EXAM: DIZZINESS TECHNIQUE: Procedure Code: CTCTA.HDNCK Modality: CT Procedure: CTA HEAD AND NECK W/ CONTRAST Multiplanar Sagittal and Coronal images were obtained. CONTRAST: Isovue 370 VOLUME: 100 mL One or more dose reduction techniques were used (e.g., Automated exposure control, adjustment of the mA and/or kV according to patient size, use of iterative reconstruction technique). RADIATION DOSE SUMMARY: CTDlvol: 19.48 mGy DLP: 780.07 mGycm COMPARISON: None FINDINGS: Aortic Arch: Normal size and branching pattern. No significant atherosclerotic plaque. Brachiocephalic and Subclavians: Unremarkable RIGHT Carotid: Right CCA: Unremarkable. Right ICA: Atherosclerotic calcifications without hemodynamically significant stenosis. Right ECA: Unremarkable. LEFT Carotid: Left CCA: Unremarkable. Left ICA: Atherosclerotic sclerosis without hemodynamically significant stenosis. Left ECA: Unremarkable. Vertebrals: Unremarkable. RIGHT Vertebral: Unremarkable. LEFT Vertebral: Unremarkable. Anatomy: [place] anatomy is normal. Aneurysm or avm: No intracranial aneurysms or large vascular malformations are identified. Anterior cerebral arteries: Unremarkable: Middle cerebral arteries: Unremarkable. Basilar artery: Unremarkable. Posterior cerebral arteries: Unremarkable. Other major branches of the posterior circulation: Unremarkable. Major venous structures: Unremarkable. Other findings: Neck: No lymphadenopathy. Lungs: Lung apices are clear. Bones: Bones are unremarkable. CT/CTA Head AND Neck W/ Contrast IMPRESSION: No hemodynamically significant stenosis in the head and neck. Reading Location: [facility]
--- NOTE | 2025-09-17 15:23 | ECHOD_ITS ---
Reason For Study Reason For Study: SYNCOPE/NEAR SYNCOPE Procedure This was a 2D Doppler, Color Flow transthoracic echocardiogram. The study was technically difficult. Exam performed portable in patient room. Left Ventricle Normal LV size. The estimated ejection fraction is 70 %. No evidence for diastolic dysfunction. No regional wall motion abnormalities noted. Right Ventricle Normal RV size. Normal systolic function. Atria The left and right atria are normal. No doppler evidence for ASD. Mitral Valve There is no mitral valve stenosis. No mitral valve insufficiency. Tricuspid Valve There is no tricuspid stenosis. Unable to estimate RV systolic pressure due to insufficient tricuspid regurgitant envelope. Trivial tricuspid valve insufficiency. Aortic Valve Trisinus/trileaflet aortic valve. There is no aortic stenosis. Trivial aortic valve insufficiency. Pulmonic Valve There is no pulmonic valvular stenosis. No pulmonic valve insufficiency. Great Vessels Normal sized aortic root. Pericardium/Pleural No pericardial effusion. MMode/2D Measurements & Calculations LVIDd: 3.4 cm IVSd: 0.95 cm Ao root diam: 3.1 cm LVIDs: 2.2 cm LVPWd: 0.96 cm FS: 34.2 % LAV(MOD-bp): 19.5 ml LA A4 area: 10.8 cm2 LA dimension(2D): 2.7 cm LAV(MOD-bp) Indexed: 11.0 ml/m2 LAV(MOD-sp2): 15.5 ml LAV(MOD-sp4): 21.3 ml TAPSE: 1.9 cm RA A4 area: 9.7 cm2 Time Measurements MV dec time: 0.30 sec Doppler Measurements & Calculations MV E max aldo: 63.0 cm/sec Lat Peak E' Aldo: 5.6 cm/sec Med Peak E' Aldo: 5.7 cm/sec MV A max aldo: 97.1 cm/sec E/E' lat: 11.3 E/E' med: 11.0 MV E/A: 0.65 Ao V2 max: 125.9 cm/sec LV V1 max: 86.0 cm/sec PA V2 max: 75.2 cm/sec Ao max P.3 mmHg LV V1 max P.0 mmHg TR max aldo: 262.8 cm/sec TR max P.6 mmHg ECHO/Echo Complete Interpretation Summary The estimated ejection fraction is 70 %. No evidence for diastolic dysfunction. Ordering Physician: Mayte Esqueda Referring Physician: ADEEL HAYES Performed By: Christine Mcdowell RDCS
[2025-09-17 16:06] VITALS: BMI 35.2
[2025-09-17] MEDS: Lactated Ringers 1,000 ML 125 ML IV (16:22)
[2025-09-17 16:24] VITALS: BP 171/92; PULSE 86; RESP 14; TEMP 36.9; O2SAT 95
[2025-09-17 17:15] VITALS: BP 134/122; BP 135/97; BP 153/140; PULSE 88; PULSE 94
[2025-09-17 17:28] VITALS: BMI 35.2
--- NOTE | 2025-09-17 18:13 | NURSING ---
taken down to mri
[2025-09-17 20:54] LABS: Mucous, Urine 0 SEEN /hpf (<or=2+); Squamous Epithelial Cells - UA 0 SEEN /hpf (5-10)
[2025-09-17 21:15] LABS: Color, Urine Yellow (Yellow); Glucose, Dipstick Normal (Normal); Ketone-Dipstick Negative (Negative); Leukocyte Esterase-Dipstick Negative /ul (Negative); Nitrite-Dipstick Negative (Negative); Occult Blood-Urine 25 /ul (Negative); Protein-Dipstick 30 mg/dl (Negative); Specific Gravity, Urine 1.010 (1.002-1.030); Urine Bilirubin Dipstick Negative (Negative)
[2025-09-17 21:41] LABS: Red Blood Cells-Urine 0-5 SEEN /hpf (0-5)
[2025-09-17 22:20] VITALS: BP 125/56; PULSE 82; RESP 18; TEMP 36.7; O2SAT 93
[2025-09-17] MEDS: Senna/Docusate Sodium 1 Tablet 2 TABLET PO (22:29)
[2025-09-18 03:57] VITALS: BMI 35.2
[2025-09-18 04:31] VITALS: PULSE 77; RESP 18; TEMP 36.7; O2SAT 93
[2025-09-18 05:38] VITALS: BMI 35.6
[2025-09-18 05:38] LABS: Hematocrit 37.8 % (37-47); Hemoglobin 12.7 g/dL (12.0-15.0); Immature Granulocytes Count 0.040 X10^3/uL (0.0-0.0); Mean Corp Hgb Conc 33.6 g/dL (32-36); Mean Corpuscular Volume 91.5 fL (81-99); Mean Platelet Vol. 10.1 fl (6.2-12.0); NRBC Flagged by Analyzer 0 % (0-5); Platelet Count 219 K/mm3 (150-450); RBC Distribution Width CV 12.5 % (11.6-14.6); RBC Distribution Width SD 41.5 fl (35.1-43.9); Red Blood Count 4.13 M/mm3 (4.2-5.4); White Blood Count 8.2 K/mm3 (4.4-11.0)
[2025-09-18 06:37] LABS: AST(SGOT) 17 U/L (<=31); Alanine Aminotransfer ALT/SGPT 10 U/L (<=34); Albumin, Serum 4.0 g/dL (3.4-4.8); Alkaline Phosphatase 70 U/L (35-104); Anion Gap 12 (5-15); BUN 24 mg/dL (4-19); BUN/Creat Ratio 31.8 RATIO (10-20); Calcium,Total 9.4 mg/dL (7.6-11.0); Carbon Dioxide 22.7 mmol/L (21.0-32.0); Chloride 105 mmol/L (98-108); Estimated Creatinine Clearance 54.21 ml/min (50-250); Globulin 2.8 g/dL (2.2-4.2); Glucose 94 mg/dL (70-99); Magnesium 2.2 mg/dL (1.5-2.2); Potassium 3.3 mmol/L (3.3-5.1)
[2025-09-18 08:22] VITALS: BP 140/70; PULSE 78; RESP 14; TEMP 36.3; O2SAT 93
[2025-09-18] MEDS: Calcium Carb/Vitamin D 1 TABLET Tablet PO (08:25)
[2025-09-18] MEDS: Cholecalciferol (VIT D3) 25 MCG TABLET (1,000 UNITS) PO (08:25)
--- NOTE | 2025-09-18 11:02 | PN.HOSP_ITS ---
Subjective Subjective Doing well, no issues overnight Objective Data Objective Data Vital Signs: Vital Signs Temp Pulse Resp BP Pulse Ox O2 Del Method 97.3 F L 78 14 140/70 H 93 Room Air 09/18/25 08:22 09/18/25 08:22 09/18/25 08:22 09/18/25 08:22 09/18/25 08:22 09/18/25 10:00 Oxygen Delivery Method Room Air Weight: 181 lb 7.047 oz Body Mass Index (BMI) 35.6 Intake & Output: Intake and Output for Last 24 Hours 09/17/25 09/18/25 09/19/25 03:59 03:59 03:59 Intake Total 361.67 / 361.67 Output Total 100 / 100 200 / 200 Balance 261.67 / 261.67 -200 / -200 Lab / Micro Data 09/18/25 05:15 09/18/25 05:15 Labs: Laboratory Results - last 24 hr 09/17/25 11:45: WBC 9.9, RBC 4.48, Hgb 13.7, Hct 41.2, MCV 92.0, MCH 30.6, MCHC 33.3, RDW Std Deviation 42.1, RDW Coeff of [place]haji 12.4, Plt Count 235, MPV 10.0, Immature Gran % (Auto) 0.700, Neut % (Auto) 80.7 H, Lymph % (Auto) 11.6 L, [place] % (Auto) 5.5, Eos % (Auto) 1.1, Baso % (Auto) 0.4, Absolute Neuts (auto) 8.0 H, Absolute Lymphs (auto) 1.15, Nucleated RBC % 0, Sodium 141, Potassium 4.2, Chloride 103, Carbon Dioxide 24.3, Anion Gap 14, BUN 22 H, Creatinine 0.73, Estim Creat Clear Calc 53.56, Est GFR (MDRD) Non-Af 84, BUN/Creatinine Ratio 30.9 H, Glucose 103 H, Calcium 9.6 09/17/25 20:43: Urine Color Yellow, Urine Clarity Cloudy, Urine pH 7.0, Ur Specific [place] 1.010, Urine Protein 30 H, Urine Glucose (UA) Normal, Urine Ketones Negative, Urine Occult Blood 25 H, Urine Nitrite Negative, Urine Bilirubin Negative, Urine Urobilinogen Normal, Ur Leukocyte Esterase Negative, Urine RBC 0-5 SEEN, Urine WBC 0 SEEN, Ur Squamous Epith Cells 0 SEEN, Urine Bacteria 4+, Urine Mucus 0 SEEN 09/18/25 05:15: WBC 8.2, RBC 4.13 L, Hgb 12.7, Hct 37.8, MCV 91.5, MCH 30.8, MCHC 33.6, RDW Std Deviation 41.5, RDW Coeff of [place] 12.5, Plt Count 219, MPV 10.1, Immature Gran % (Auto) 0.500, Neut % (Auto) 66.3, Lymph % (Auto) 21.4, [place] % (Auto) 8.2, Eos % (Auto) 3.2, Baso % (Auto) 0.4, Absolute Neuts (auto) 5.4, Absolute Lymphs (auto) 1.75, Nucleated RBC % 0, Sodium 140, Potassium 3.3, Chloride 105, Carbon Dioxide 22.7, Anion Gap 12, BUN 24 H, Creatinine 0.75, Estim Creat Clear Calc 54.21, Est GFR (MDRD) Non-Af 81, BUN/Creatinine Ratio 31.8 H, Glucose 94, Calcium 9.4, Phosphorus 3.6, Magnesium 2.2, Total Bilirubin 0.49, AST 17, ALT 10, Alkaline Phosphatase 70, Total Protein 6.8, Albumin 4.0, Globulin 2.8, Albumin/Globulin Ratio 1.5, TSH 1.780 Radiography Diagnostic Testing: Radiology Impression Brain CT 09/17/25 10:53 IMPRESSION: Moderate atrophy. Disproportionately larger ventricles in comparison to the sulcal spaces, raising the concern for possible communicating hydrocephalus, such as NPH. Please correlate clinically. Reading Location: [id number] Cervical Spine CT 09/17/25 10:53 IMPRESSION: Multilevel disc space narrowing with the neural foraminal stenosis as described. Reading Location: [facility] Hip/Pelvis X-Ray 09/17/25 12:20 IMPRESSION: Status post right total hip replacement. There is good alignment. No fracture or dislocation is seen. Reading Location: [id number] Shoulder X-Ray 09/17/25 12:20 IMPRESSION: As above. Reading Location: [id number] Brain MRI 09/17/25 14:47 IMPRESSION: Moderate ventriculomegaly, disproportionate with the size of the sulcal spaces. This may represent preferential central atrophy. However, communicating hydrocephalus such as NPH is also a consideration. These findings are congruent with the recent CT on the same day. Please correlate clinically. Mild chronic microvascular ischemic changes. Reading Location: [id number] Head/Neck CTA 09/17/25 14:47 IMPRESSION: No hemodynamically significant stenosis in the head and neck. Reading Location: [facility] Rhythm Strip Rhythm Strip: Sinus Rhythm Rate: 79 Ectopy: None Physical Exam Narrative General: Alert, Oriented x3, Cooperative, No apparent distress HEENT: Atraumatic, PERRLA, EOMI, Normocephalic Oral: Moist Mucosa Neck: Supple, No JVD Lungs: Diminished, Normal air movement, No rhonchi, No wheeze, No rales Cardiovascular: Regular rate, Regular Rhythm, Normal S1, Normal S2, No murmurs Abdomen: Soft, Non Tender, Non-Distended, No Hepato-splenomegaly Extremities: No edema, Capillary Refill Less than 3 Seconds Skin: No rashes, No breakdown Musculoskeletal: No Tenderness to Palpation of Joints or Extremities Neurological: No focal neurological deficits, moves all extremities Psych/Mental Status: Normal Affect, Appropriate Assessment & Plan Assessment/Plan (1) Dizziness: (2) Repeated falls: (3) Closed head injury without concussion: (4) 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 Dizziness with repeated falls and possible syncope/ventriculomegaly with brain atrophy ? MRI demonstrates moderate ventriculomegaly disproportionate with the size of the sulcal spaces could represent preferential central atrophy however NPH is still concern ? Awaiting evaluation by neurology ? CTA of the head and neck was unremarkable ? PT/OT ? Echo is pending ? Telemetry so far is unremarkable 2. Essential HTN/HLD ? Continue with her home blood pressure medications ? Will monitor make adjustments as necessary ? Continue with her home cholesterol medications 3. Fibromyalgia ? Continue with her home meds 4. GERD ? Stable ? Continue with her home PPI DVT: Lovenox Charges/Coding Visit Charges Inpatient E&M: 27219 Subs Hosp L2 NIHSS NIHSS Nursing Documentation NIHSS Nursing Documentation: NIHSS: Ischemic Stroke/TIA Start: 09/17/25 16:13 Freq: Status: Active Protocol: Activity Type Activity Date Activity User E-sign Co-sign Detail Recorded Client Recorded Date Recorded By Document 09/17/25 20:15 DC [id number] 09/17/25 20:29 DC 09/17/25 20:15 NIH Stroke Scale [NIHSS] A score of 0 is normal or asymptomatic . Total possible score is 42. Inpatient: RN or Physician to activate a stroke alert for onset of new stroke symptoms or with NIHSS increase >/= 3 points. Following change in neurological status, NIHSS will be performed per physician order or more frequently PRN. -1a. Level of Consciousness 0 - Alert; keenly responsive -1b. LOC Questions 0 - Answers BOTH questions correctly -1c. LOC Commands 0 - Performs BOTH tasks correctly -2. Best Gaze 0 - Normal -3. Visual 0 - No visual loss -4. Facial Palsy 1 - Minor paralysis ( flattened nasolabial fold , asymmetry on smiling) -5a. Left Arm 0 - No drift; arm holds 90 ( or 45) degrees for full 10 seconds -5b. Right Arm 0 - No drift; arm holds 90 ( or 45) degrees for full 10 seconds -6a. Left Leg 0 - No drift; leg holds 30- degree position for full 5 seconds -6b. Right Leg 1 - Drift; leg falls by the end of 5- seconds, but does not hit bed -7. Limb Ataxia 0 - Absent -'UN' explanation rt hip replacement in past cannot move as well -8. Sensory 1 - Mild-to- moderate sensory loss; -9. Best Language 0 - No aphasia; normal -10. Dysarthria 1 = Mild-to- moderate dysarthria; -11. Extinction and Inattention 0 - No abnormality -Total 4 Query Text:A score of 0 is normal or asymptomatic. Total possible score is 42 . ED: Notify Physician for NIHSS increase by > / = 3 points. Inpatient: RN or Physician to activate a stroke alert for NIHSS increase of > / = 3 points. Coma Scale [Assess] -Eye Opening Spontaneous -Motor Obeys Commands -Verbal Oriented [Total] -Coma Scale Total 15
--- NOTE | 2025-09-18 11:21 | CASEMGMT ---
Discharge Planning A list of?SNF providers including quality and resource use data and consistent with the patient's preferred geographic region, medical needs, and insurance network was created in [employer].? This list was provided to the SW. Janet Abraham Discharge Planning Asst.
--- NOTE | 2025-09-18 11:49 | NEURO.CONS ---
Assessment and Plan: Neuro Assessment/Plan ANAMIKA PERES is a 80 F with a past medical history of progressively worsening falls, memory concerns, being evaluated by Teleneurology for worsening falls and memory issues. On history, both have been progressive over the last several months although some memory symptoms began a couple years ago suggesting possible subacute worsening of a chronic progressive process. On exam there is poor delayed recall. Importantly on her exam, there is LE weakness of unclear distribution, lengthdependent neuropathy. At this time, recommend additional workup for vitamin deficiencies and also lab workup for both neuropathy and cognitive changes Plan: - Vitamin B12, folate, thiamine levels, RPR, HIV - recommend aggressive thiamine replacement: 500mg IV q8hrs x 3 days, then 250mg mg IV daily x 5 days, 100mg thiamine PO daily. - recommend MRI T and Lspine with and without contrast. Recommend outpatient official neurocognitive evaluation and evaluation for starting medication. I personally attended this patient and spent a total time of 45 minutes evaluating this patient including clinical assessment, review of chart, medical history imaging, and determining appropriate treatment and workup. HPI Consult Data Date of Consult: 09/19/25 HPI Narrative HPI Narrative: ANAMIKA PERES, is a 80 F who presented to the emergency department [facility] on 09/17/2025 with a chief complaint of falls with questionable syncope. Patient is overall a poor historian. Patient reports that over the last 6 months she has had progressively worsening issues with falls. She states that she feels like she is pushed behind and then wakes up and is on the ground. She states initially this was happening maybe once or twice a month and now it is happening once or twice a week. It happened twice in the last 48 hours so she decided to come to the emergency department to be evaluated. She states she has no urinary incontinence. No chest pain or shortness of breath. She has had no fever or chills and been feeling well otherwise. She states like she feels like she has difficulty getting her words out at times and that she has some memory issues. She is alert and oriented x 3 at the time of my evaluation. She lives alone so none of these events have been witnessed per her report. Neurologic History Within the last 2 months has had rapid memory loss. Currently patient lives in a nursing facility. The fall brought her in but POA is interested in getting cognitive evaluation. Pt has been living a nursing facility about a year ago for overall disability, walks with a walker and has had poor mobility. She will stand up and get dizzy and will fall. The dizziness feels like someone is pushing her and suddenly she will fall and she is not sure she passes out but feels like her brain stops working. Pt denies any weakness or numbness but the more she falls the weaker she will get. For the last several months has had this feeling where someone has been pushing her and first fall was over summer. 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 Patient will have memory issues - will have short term memory issues. Has gotten worse over the last few months but first noticed it a couple years ago. She was forgetting words and was not making new memories but could remember things that happened years ago. Patient was unable to write things down a couple years ago and stopped being able to write coherently. Patient will eat 1 full meal a day. History mostly obtained from the POA (has known patient for last 5 yrs). Previously had a EMG in 2022 for arm weakness: This is a markedly abnormal study. 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 The denervation of the thenar muscles with sparing of the proximal median and anterior interosseous territory would suggest a distal localization, however, this is not confirmatory. Neuromuscular ultrasound of the median nerve could be considered for further characterization and localization. Exam -? General: Laying comfortably in bed; in no acute distress. -? HENT: Normal oropharynx and mucosa. Normal external appearance of ears and nose. Exophthalmos. -? Neck: Supple, no pain or tenderness -? CV:? No peripheral edema. -? Pulmonary:? Normal respiratory effort. -? Ext: No cyanosis, edema, or deformity -? Skin: No rash. Normal palpation of skin.? -? Musculoskeletal: full range of motion; no joint tenderness. Normal digits and nails by inspection. No clubbing. -? NEURO: -? Mental Status: The patient was alert and oriented to time, place, and person. General fund of knowledge intact, immediate recall appropriate but delayed recall impaired severely -? Language: speech is *clear.? Naming, repetition, fluency, and comprehension intact. -? Cranial Nerves: PERRL 3mm/brisk. EOMI, vision is impaired bilaterally, no facial asymmetry, facial sensation diminished on the LV1 and RV2, hearing intact, tongue midline, no evidence of atrophy or fibrillations. slight hypomimia, keeps blinking her eyes -? Motor: normal bulk, tone, and strength throughout. No pronator drift or satelliting. Upper and lower extremities equal bilaterally. -? Detailed strength exam as performed by the nurse/ROBERTO and witnessed by the physician: R L SA 4 4 EE EF WE WF Business Continuity Strategy Director 5 5 HF 3 3 KE 4 3 KF 2 3 DF 4 4 PF -? Detailed reflex exam as performed by the nurse/ROBERTO and witnessed by the physician: R L Biceps Patellar 1 0 Ankle Babinski down down -? Tone: is normal and bulk is normal -? Sensation- LT diminished R forearm, same in the b/l LE -? Coordination: No ataxia on FTN on the R, LUE with past pointing; unable to really perform HTS -? Gait- ptient unable to stand without assistance [facility] Medical History Carpal tunnel syndrome on right Cellulitis of left upper arm Essential hypertension Nonobstructive atherosclerosis of coronary artery Hyperlipidemia Cholelithiasis Macular degeneration Fibromyalgia GERD (gastroesophageal reflux disease) Home Medications ?Medication ?Instructions ?Recorded ?Last Taken ?Type Leticia Allergy 180 mg PO DAILY PRN allergy 05/17/18 Unknown History omeprazole 20 mg capsule,delayed 20 mg PO DAILY reflux 05/17/18 11/24/20 04:00 History release 20 MG potassium chloride 10 mEq 10 meq PO DAILY supplement 05/17/18 Unknown History capsule,extended release calcium 600 mg (as 1 ea PO DAILY supplement 05/29/18 Unknown History carbonate)-vitamin D3 12.5 mcg (500 unit) capsule vitamin E 268 mg (400 unit) capsule 1,000 unit PO DAILY supplement 05/29/18 Unknown History cholecalciferol (vitamin D3) 25 4,000 unit PO DAILY pure 09/12/18 Unknown History mcg (1,000 unit) tablet hyperglyceridemia gemfibrozil 600 mg tablet 600 mg PO BID pure 06/03/20 Unknown Rx hyperglyceridemia #180 tabs aspirin 81 mg chewable tablet 81 mg PO DAILY heart 02/13/23 Unknown History acetaminophen 500 mg tablet 1,000 mg PO Q6H PRN pain 09/17/25 Unknown History alprazolam 0.25 mg tablet 0.125 mg PO DAILY PRN anxiety 09/17/25 Unknown History ascorbic acid 125 mg-collagen, 1 cap PO DAILY supplement 09/17/25 Unknown History hydrolyzed 740 mg capsule calcium carbonate (Antacid See Rx Instructions PO .COMPLEX 09/17/25 Unknown History (calcium carbonate)) PRN dyspepsia cyanocobalamin (vitamin B-12) 1,000 mcg PO DAILY supplement 09/17/25 Unknown History 1,000 mcg capsule dextromethorphan-guaifenesin 30 1 tab PO DAILY PRN cough 09/17/25 Unknown History mg-600 mg tablet extended [id number] hr (Mucinex DM) docusate sodium 100 mg capsule 100 mg PO QHS constipation 09/17/25 Unknown History (Colace) loperamide 2 mg capsule 2 mg PO Q6H PRN loose stool 09/17/25 Unknown History (Anti-Diarrheal (loperamide)) phenylephrine 0.25 %-mineral oil 1 applic MD Q6H PRN PRN hemorrhoids 09/17/25 Unknown History 14 %-petrolatm 74.9 % rectal ointment (Preparation H) polyethylene glycol 3350 17 17 g PO DAILY PRN constipation 09/17/25 Unknown History gram/dose oral powder (Miralax) sertraline 25 mg tablet 25 mg PO QHS depression 09/17/25 Unknown History vit C 250 mg-vit E 90 mg-zinc 40 2 tab PO DAILY macular degeneration 09/17/25 Unknown History mg-copper 1 dj-cekmcn-mwctop capsule (PreserVision AREDS-2) Allergy/AdvReac Type Severity Reaction Status Date / Time ampicillin Allergy Rash Verified 09/17/25 10:07 lisinopril Allergy Rash Verified 09/17/25 10:07 Penicillins (PCN) Allergy Rash Verified 09/17/25 10:07 simvastatin AdvReac Severe Myalgias, Verified 09/17/25 10:07 flu like sx Family History Mother , of cancer Arrhythmia Cancer Father , of [place] Myocardial infarction CAD (coronary artery disease) Carotid disease, bilateral Surgical History History of right hip replacement History of cholecystectomy (2017) History of left heart catheterization (06/19/18) S/P anal fissurectomy Social History (Updated 09/17/25 @ 15:53 by Hiral Rodriguez) household members: none housing: assisted living facility Smoking Status: Never smoker alcohol intake: never substance use type: does not use Vital Signs Vital Signs Vital Signs: 09/17/25 14:18 09/17/25 15:55 09/17/25 16:24 Temperature 97.8 F 98.4 F Temperature Source Temporal Oral Pulse Rate 80 86 Pulse Rate [Lying] Pulse Rate [Sitting (for 1 minute prior to obtaining)] Pulse Strength Respiratory Rate 20 H 14 Respiratory Effort Normal Non-Labored Respiratory Depth Normal Respiratory Pattern Normal Blood Pressure 139/88 H 171/92 H Blood Pressure [Lying] Blood Pressure [Sitting (for 1 minute prior to obtaining)] Blood Pressure [Standing (for 1 minute prior to obtaining)] Blood Pressure Mean 105 118 Blood Pressure Mean [Lying] Blood Pressure Mean [Sitting (for 1 minute prior to obtaining)] Blood Pressure Mean [Standing (for 1 minute prior to obtaining)] Blood Pressure Source Monitor Blood Pressure Position Semi-Fowlers Blood Pressure Location Right Arm Pulse Ox 97 95 Oxygen Delivery Method Room Air Room Air Room Air 09/17/25 17:15 09/17/25 17:50 09/17/25 20:30 Temperature Temperature Source Pulse Rate Pulse Rate [Lying] 88 Pulse Rate [Sitting (for 1 minute prior to obtaining)] 94 Pulse Strength Respiratory Rate Respiratory Effort Normal Non-Labored Respiratory Depth Normal Respiratory Pattern Normal Blood Pressure Blood Pressure [Lying] 135/97 H Blood Pressure [Sitting (for 1 minute prior to obtaining)] 134/122 H Blood Pressure [Standing (for 1 minute prior to obtaining)] 153/140 H Blood Pressure Mean Blood Pressure Mean [Lying] 109 Blood Pressure Mean [Sitting (for 1 minute prior to obtaining)] 126 Blood Pressure Mean [Standing (for 1 minute prior to obtaining)] 144 Blood Pressure Source Blood Pressure Position Blood Pressure Location Pulse Ox Oxygen Delivery Method Room Air Room Air 09/17/25 22:20 09/17/25 22:30 09/18/25 04:31 Temperature 98.1 F 98.1 F Temperature Source Oral Oral Pulse Rate 82 77 Pulse Rate [Lying] Pulse Rate [Sitting (for 1 minute prior to obtaining)] Pulse Strength Normal (2+) Respiratory Rate 18 18 Respiratory Effort Respiratory Depth Respiratory Pattern Blood Pressure 125/56 H Blood Pressure [Lying] Blood Pressure [Sitting (for 1 minute prior to obtaining)] Blood Pressure [Standing (for 1 minute prior to obtaining)] Blood Pressure Mean 79 Blood Pressure Mean [Lying] Blood Pressure Mean [Sitting (for 1 minute prior to obtaining)] Blood Pressure Mean [Standing (for 1 minute prior to obtaining)] Blood Pressure Source Monitor Monitor Blood Pressure Position Semi-Fowlers Semi-Fowlers Blood Pressure Location Right Forearm Right Forearm Pulse Ox 93 93 Oxygen Delivery Method Room Air Room Air 09/18/25 04:32 09/18/25 08:22 09/18/25 10:00 Temperature 97.3 F L Temperature Source Temporal Pulse Rate 78 Pulse Rate [Lying] Pulse Rate [Sitting (for 1 minute prior to obtaining)] Pulse Strength Normal (2+) Respiratory Rate 14 Respiratory Effort Normal Non-Labored Respiratory Depth Normal Respiratory Pattern Normal Blood Pressure 140/70 H Blood Pressure [Lying] Blood Pressure [Sitting (for 1 minute prior to obtaining)] Blood Pressure [Standing (for 1 minute prior to obtaining)] Blood Pressure Mean 93 Blood Pressure Mean [Lying] Blood Pressure Mean [Sitting (for 1 minute prior to obtaining)] Blood Pressure Mean [Standing (for 1 minute prior to obtaining)] Blood Pressure Source Monitor Blood Pressure Position Supine Blood Pressure Location Right Forearm Pulse Ox 93 Oxygen Delivery Method Room Air Room Air 09/18/25 10:00 Temperature Temperature Source Pulse Rate Pulse Rate [Lying] Pulse Rate [Sitting (for 1 minute prior to obtaining)] Pulse Strength Respiratory Rate Respiratory Effort Respiratory Depth Respiratory Pattern Blood Pressure Blood Pressure [Lying] Blood Pressure [Sitting (for 1 minute prior to obtaining)] Blood Pressure [Standing (for 1 minute prior to obtaining)] Blood Pressure Mean Blood Pressure Mean [Lying] Blood Pressure Mean [Sitting (for 1 minute prior to obtaining)] Blood Pressure Mean [Standing (for 1 minute prior to obtaining)] Blood Pressure Source Blood Pressure Position Blood Pressure Location Pulse Ox Oxygen Delivery Method Room Air Weight Weight: 82.3 kg Body Mass Index (BMI) 35.6 EEG Results Procedure Details EEG Procedure Details: ANAMIKA PERES is a 80 year old F with a past medical history of , who presents for evaluation of Electroencephalogram on DATE at TIME Lab / Micro Data 09/18/25 05:15 09/18/25 05:15 Labs: Laboratory Results - last 24 hr 09/17/25 11:45: Sodium 141, Potassium 4.2, Chloride 103, Carbon Dioxide 24.3, Anion Gap 14, BUN 22 H, Creatinine 0.73, Estim Creat Clear Calc 53.56, Est GFR (MDRD) Non-Af 84, BUN/Creatinine Ratio 30.9 H, Glucose 103 H, Calcium 9.6 09/17/25 20:43: Urine Color Yellow, Urine Clarity Cloudy, Urine pH 7.0, Ur Specific [place] 1.010, Urine Protein 30 H, Urine Glucose (UA) Normal, Urine Ketones Negative, Urine Occult Blood 25 H, Urine Nitrite Negative, Urine Bilirubin Negative, Urine Urobilinogen Normal, Ur Leukocyte Esterase Negative, Urine RBC 0-5 SEEN, Urine WBC 0 SEEN, Ur Squamous Epith Cells 0 SEEN, Urine Bacteria 4+, Urine Mucus 0 SEEN 09/18/25 05:15: WBC 8.2, RBC 4.13 L, Hgb 12.7, Hct 37.8, MCV 91.5, MCH 30.8, MCHC 33.6, RDW Std Deviation 41.5, RDW Coeff of [place] 12.5, Plt Count 219, MPV 10.1, Immature Gran % (Auto) 0.500, Neut % (Auto) 66.3, Lymph % (Auto) 21.4, [place] % (Auto) 8.2, Eos % (Auto) 3.2, Baso % (Auto) 0.4, Absolute Neuts (auto) 5.4, Absolute Lymphs (auto) 1.75, Nucleated RBC % 0, Sodium 140, Potassium 3.3, Chloride 105, Carbon Dioxide 22.7, Anion Gap 12, BUN 24 H, Creatinine 0.75, Estim Creat Clear Calc 54.21, Est GFR (MDRD) Non-Af 81, BUN/Creatinine Ratio 31.8 H, Glucose 94, Calcium 9.4, Phosphorus 3.6, Magnesium 2.2, Total Bilirubin 0.49, AST 17, ALT 10, Alkaline Phosphatase 70, Total Protein 6.8, Albumin 4.0, Globulin 2.8, Albumin/Globulin Ratio 1.5, TSH 1.780 Rhythm Strip Rhythm Strip: Sinus Rhythm Rate: 79 Ectopy: None Imaging Radiology Impression Brain CT 09/17/25 10:53 IMPRESSION: Moderate atrophy. Disproportionately larger ventricles in comparison to the sulcal spaces, raising the concern for possible communicating hydrocephalus, such as NPH. Please correlate clinically. Reading Location: [facility] Cervical Spine CT 09/17/25 10:53 IMPRESSION: Multilevel disc space narrowing with the neural foraminal stenosis as described. [facility] Hip/Pelvis [facility]-Ray 09/17/25 12:20 IMPRESSION: Status post right total hip replacement. There is good alignment. No fracture or dislocation is seen. [facility] Shoulder X-Ray 09/17/25 12:20 IMPRESSION: As above. Reading Location: [id number] Brain MRI 09/17/25 14:47 IMPRESSION: Moderate ventriculomegaly, disproportionate with the size of the sulcal spaces. This may represent preferential central atrophy. However, communicating hydrocephalus such as NPH is also a consideration. These findings are congruent with the recent CT on the same day. Please correlate clinically. Mild chronic microvascular ischemic changes. Reading Location: [facility] Head/Neck CTA 09/17/25 14:47 IMPRESSION: No hemodynamically significant stenosis in the head and neck. Reading Location: [facility] Active Medications Active Medications Active Medications: Current Medications Generic Name Dose Route Start Last Admin Trade Name Freq PRN Reason Stop Dose Admin Acetaminophen 1,000 mg 09/17/25 22:00 09/18/25 05:09 Acetaminophen 500 Mg Tablet PO Not Given Q8 SANDRA Albuterol Sulfate 2.5 mg 09/17/25 15:48 Albuterol 2.5 Mg/3 Ml Vial.Neb. INHALATION Q2H PRN PRN SOB &/OR WHEEZING Aspirin 81 mg 09/18/25 08:00 09/18/25 08:24 Aspirin 81 Mg Tab.Chew PO 81 mg BREAKFAST SANDRA Administration Atenolol 50 mg 09/18/25 10:00 09/18/25 08:26 Atenolol 50 Mg Tablet PO 50 mg DAILY SANDRA Administration Calcium/Vitamin D 1 tablet 09/18/25 10:00 09/18/25 08:25 Calcium Carb/Vitamin D 1 Tablet Tablet PO 1 tablet DAILY SANDRA Administration Chlorthalidone 12.5 mg 09/18/25 10:00 09/18/25 08:25 Chlorthalidone 25 Mg Tablet PO 12.5 mg DAILY SANDRA Administration Cholecalciferol 25 mcg 09/18/25 10:00 09/18/25 08:25 Cholecalciferol (Vit D3) 25 Mcg Tablet (1,000 Units) PO 25 mcg DAILY SANDRA Administration Doxepin HCl 25 mg 09/17/25 22:00 09/17/25 22:26 Doxepin Hcl 25 Mg Capsule PO Not Given QHS SANDRA Enoxaparin Sodium 40 mg 09/18/25 10:00 09/18/25 08:23 Enoxaparin 40 Mg/0.4 Ml Syringe SC 40 mg DAILY SANDRA Administration Gemfibrozil 600 mg 09/18/25 07:00 09/18/25 06:05 Gemfibrozil 600 Mg Tablet PO 600 mg BIDAC SANDRA Administration Sodium Chloride 250 mls @ 15 mls/hr 09/17/25 15:48 IV .[id number] PRN Saline Flush Sodium Chloride 250 mls @ 15 mls/hr 09/17/25 15:48 IV .[id number] PRN Additional IVPB Infusion Ketorolac Tromethamine 15 mg 09/17/25 15:48 Ketorolac 15 Mg/Ml Vial IV 09/19/25 15:49 Q6H PRN PRN Pain Score 1-10 Lidocaine 1 patch 09/18/25 10:00 09/18/25 11:32 Lidocaine 5% Patch TOPICAL Not Given DAILY [facility] Protocol Melatonin 10 mg 09/17/25 15:48 Melatonin 10 Mg Tablet PO QHS PRN PRN INSOMNIA Ondansetron HCl 4 mg 09/17/25 15:48 Ondansetron 4 Mg/2 Ml Vial IV Q8H PRN PRN NAUSEA/VOMITING Pantoprazole Sodium 20 mg 09/18/25 10:00 09/18/25 08:25 Pantoprazole Sodium 20 Mg Tablet PO 20 mg DAILY [facility] Administration Senna/Docusate Sodium 2 tablet 09/17/25 15:48 09/17/25 22:29 Senna/Docusate Sodium 1 Tablet PO 1 tablet BID PRN PRN Administration Constipation Sodium Chloride 10 - 40 ml 09/17/25 15:48 0.9% Saline Lock 10 Ml Syringe IV UD PRN SALINE FLUSH Zolpidem Tartrate 5 mg 09/17/25 22:00 09/17/25 22:26 Zolpidem Tartrate 5 Mg Tablet PO Not Given QHS [facility] NIHSS NIHSS Nursing Documentation NIHSS Nursing Documentation: NIHSS: Ischemic Stroke/TIA Start: 09/17/25 16:13 Freq: Status: Active Protocol: Activity Type Activity Date Activity User E-sign Co-sign Detail Recorded Client Recorded Date Recorded By Document 09/17/25 20:15 OK [id number] 09/17/25 20:29 DC 09/17/25 20:15 NIH Stroke Scale [NIHSS] A score of 0 is normal or asymptomatic . Total possible score is 42. Inpatient: RN or Physician to activate a stroke alert for onset of new stroke symptoms or with NIHSS increase >/= 3 points. Following change in neurological status, NIHSS will be performed per physician order or more frequently PRN. -1a. Level of Consciousness 0 - Alert; keenly responsive -1b. LOC Questions 0 - Answers BOTH questions correctly -1c. LOC Commands 0 - Performs BOTH tasks correctly -2. Best Gaze 0 - Normal -3. Visual 0 - No visual loss -4. Facial Palsy 1 - Minor paralysis ( flattened nasolabial fold , asymmetry on smiling) -5a. Left Arm 0 - No drift; arm holds 90 ( or 45) degrees for full 10 seconds -5b. Right Arm 0 - No drift; arm holds 90 ( or 45) degrees for full 10 seconds -6a. Left Leg 0 - No drift; leg holds 30- degree position for full 5 seconds -6b. Right Leg 1 - Drift; leg falls by the end of 5- seconds, but does not hit bed -7. Limb Ataxia 0 - Absent -'UN' explanation rt hip replacement in past cannot move as well -8. Sensory 1 - Mild-to- moderate sensory loss; -9. Best Language 0 - No aphasia; normal -10. Dysarthria 1 = Mild-to- moderate dysarthria; -11. Extinction and Inattention 0 - No abnormality -Total 4 Query Text:A score of 0 is normal or asymptomatic. Total possible score is 42 . ED: Notify Physician for NIHSS increase by > / = 3 points. Inpatient: RN or Physician to activate a stroke alert for NIHSS increase of > / = 3 points. Coma Scale [Assess] -Eye Opening Spontaneous -Motor Obeys Commands -Verbal Oriented [Total] -Coma Scale Total 15
--- NOTE | 2025-09-18 12:07 | CASEMGMT ---
Social Work SW met w/pt in room in regard to discharge plan, as per therapy pt would benefit from SNF placement for rehab prior to returning to [place]. SW did review the list of group home facilities from [facility], and [facility] is not on the list. Pt does not want to go anywhere else but [facility], and expressed being upset about the possibility of having to go elsewhere. SW explained will call her insurance to check about outpt benefits, and will call her POA as well. SW called pt's insurance, pt has no out of network benefits. SW called pt's POA Brijesh, he is on his way and will be here shortly. SW let him know that therapy is recommending SNF and [facility] not in network. He states pt would want to stay in [place], will be here shortly however and SW will speak w/Brijesh and pt together. Brijesh arrived shortly thereafter, SW spoke w/pt and Brijesh in the room. SW explained pt has no out of network benefit, and [place] not in network for SNF. SW gave the SNF list from [facility] to [facility] for other options. After some discussion, pt and Brijesh would like SW to explore if pt can return to [place] and get some therapy while in [place]. If not, then they will look at the list for going somewhere skilled. Pt is in the process of spending down her money so she can qualify for Medicaid. However Brijesh did state if pt cannot return to [place] then they will explore other SNF options in the area. SW did explain the SNF referral process to pt and Brijesh. Brijesh states pt is very anxious and they have been trying to help her with this, she worries a lot. Support offered. NATALIE asked d/c office services assistant to send information to [facility] to see if pt can return w/HHC, and where to make a referral for HHC. If they do not feel they can take pt back then the SNF option will need to be explored further. MARCEL Ruggiero
--- NOTE | 2025-09-18 12:19 | CASEMGMT ---
Discharge Planning Updates sent to [facility] [place] with note asking if they are able to provide HH. Awaiting response. Janet Abraham DC Planning Asst.
--- NOTE | 2025-09-18 13:06 | CASEMGMT ---
Discharge Planning A list of?HH providers including quality and resource use data and consistent with the patient's preferred geographic region, medical needs, and insurance network was created in [employer] Guide.? This list was provided to the SW. Janet Abraham Discharge Planning Asst.
--- NOTE | 2025-09-18 13:44 | CASEMGMT ---
Social Work A list of?HH providers including quality and resource use data and consistent with the patient's preferred geographic region, medical needs, and insurance network was created in [employer] Guide.?This list was provided to the patient. Patient requested SW speak with Brijesh. SW discussed HH options with Brijesh and he chose 1st- [facility] and 2nd choice- [facility]. SW called [facility] to make the referral and LM a message. RAYMOND Cooper
[2025-09-18 14:02] VITALS: BP 100/49; PULSE 67; RESP 16; TEMP 36.5; O2SAT 97
--- NOTE | 2025-09-18 14:45 | CASEMGMT ---
Social Work Patient has been accepted at [facility] [place]. SOC is 09/22/25. SW called Brijesh and and updated him with his information. SW also spoke with patient and updated her. RAYMOND Tejada
[2025-09-18 16:43] VITALS: BP 165/57; PULSE 56; RESP 17; TEMP 37.1; O2SAT 94
--- NOTE | 2025-09-18 16:45 | ED.RN ---
patient has arrived back from procedure
[2025-09-18 20:14] LABS: HIV Nonreactive (Nonreactive); Vitamin B12 1159 pg/mL (180-914)
[2025-09-18 20:47] VITALS: BP 110/49; PULSE 66; RESP 14; TEMP 36.7; O2SAT 92
[2025-09-18] MEDS: Thiamine Hydrochloride 500 MG in 0.9% Normal Saline (100mL Bag) 100 ML 200 MG IV (20:51)
[2025-09-18 23:02] LABS: FOLATES,SERUM (FOLIC ACID) 9.97 ng/mL (4.60-34.80)
[2025-09-19 02:39] VITALS: BMI 35.9
[2025-09-19 04:14] VITALS: BP 153/77; PULSE 64; RESP 14; TEMP 36.4; O2SAT 95
[2025-09-19 05:09] LABS: Hematocrit 35.0 % (37-47); Hemoglobin 11.7 g/dL (12.0-15.0); Immature Granulocytes Count 0.020 X10^3/uL (0.0-0.0); Mean Corp Hgb Conc 33.4 g/dL (32-36); Mean Corpuscular Volume 92.1 fL (81-99); Mean Platelet Vol. 10.2 fl (6.2-12.0); NRBC Flagged by Analyzer 0 % (0-5); Platelet Count 193 K/mm3 (150-450); RBC Distribution Width CV 12.9 % (11.6-14.6); RBC Distribution Width SD 43.0 fl (35.1-43.9); Red Blood Count 3.80 M/mm3 (4.2-5.4); White Blood Count 7.3 K/mm3 (4.4-11.0)
[2025-09-19 05:34] LABS: Anion Gap 12 (5-15); BUN 30 mg/dL (4-19); BUN/Creat Ratio 39.7 RATIO (10-20); Calcium,Total 9.2 mg/dL (7.6-11.0); Carbon Dioxide 22.8 mmol/L (21.0-32.0); Chloride 106 mmol/L (98-108); Estimated Creatinine Clearance 54.46 ml/min (50-250); Glucose 101 mg/dL (70-99); Potassium 3.4 mmol/L (3.3-5.1)
[2025-09-19] MEDS: Thiamine Hydrochloride 500 MG in 0.9% Normal Saline (100mL Bag) 100 ML 200 MG IV ×3 (05:52→22:03)
[2025-09-19 06:53] VITALS: O2SAT 93
[2025-09-19 07:43] VITALS: BMI 35.9
--- NOTE | 2025-09-19 08:21 | PN.HOSP_ITS ---
Reason for Visit Chief Complaint: Falls/syncope Objective Data Objective Data Vital Signs: Vital Signs Temp Pulse Resp BP Pulse Ox O2 Del Method O2 Flow Rate 97.6 F L 64 14 153/77 H 95 Nasal Cannula 2 09/19/25 04:14 09/19/25 04:14 09/19/25 04:14 09/19/25 04:14 09/19/25 04:14 09/19/25 04:14 09/19/25 04:14 Oxygen Flow Rate (L/min) 2 Oxygen Delivery Method Nasal Cannula Weight: 182 lb 15.739 oz Body Mass Index (BMI) 35.9 Intake & Output: Intake and Output for Last 24 Hours 09/17/25 09/18/25 09/19/25 23:59 23:59 23:59 Intake Total 361.67 / 361.67 300 / 300 210 / 210 Output Total 100 / 100 200 / 200 700 / 700 Balance 261.67 / 261.67 100 / 100 -490 / -490 Lab / Micro Data 09/19/25 04:20 09/19/25 04:20 Labs: Laboratory Results - last 24 hr 09/18/25 19:21: Vitamin B12 1159 H, Serum Folate 9.97, HIV 1&2 Antibody Nonreactive 09/19/25 04:20: WBC 7.3, RBC 3.80 L, Hgb 11.7 L, Hct 35.0 L, MCV 92.1, MCH 30.8, MCHC 33.4, RDW Std Deviation 43.0, RDW Coeff of Alhaji 12.9, Plt Count 193, MPV 10.2, Immature Gran % (Auto) 0.300, Neut % (Auto) 61.4, Lymph % (Auto) 24.3, [place] % (Auto) 9.1, Eos % (Auto) 4.4, Baso % (Auto) 0.5, Absolute Neuts (auto) 4.5, Absolute Lymphs (auto) 1.78, Nucleated RBC % 0, Sodium 141, Potassium 3.4, Chloride 106, Carbon Dioxide 22.8, Anion Gap 12, BUN 30 H, Creatinine 0.76, Estim Creat Clear Calc 54.46, Est GFR (MDRD) Non-Af 80, BUN/Creatinine Ratio 39.7 H, Glucose 101 H, Calcium 9.2 Radiography Diagnostic Testing: Radiology Impression Echocardiogram 09/17/25 15:23 Interpretation Summary The estimated ejection fraction is 70 %. No evidence for diastolic dysfunction. Ordering Physician: Mayte Esqueda Referring Physician: ADEEL HAYES Performed By: Christine Mcdowell RDCS Rhythm Strip Rhythm Strip: Sinus Rhythm Rate: 79 Ectopy: None Physical Exam Narrative Seen and examined Patient admitted with recurrent fall. She has bilateral knee arthritis. She has mild shuffling gait Physical exam General: Alert, Oriented x3, Cooperative HEENT: Atraumatic, PERRLA, EOMI, Normocephalic. Oral: No Gingival or Mucosal Lesions/ Ulcerations Neck: Supple, No JVD, Negative Carotid Bruits Chest wall/Lungs: Air entry diminished in bilateral lung bases. No crepitation/rhonchi Cardiovascular: Regular rate and rhythm, Normal S1,S2, No M/G/R Abdomen: Bowel Sounds Present, Soft, Non Tender, Non-Distended : No dysuria. No renal angle tenderness. No suprapubic tenderness. Extremities: No edema, Capillary Refill Less than 3 Seconds Skin: No rashes, No breakdown. Dilated varicose vein in lower extremities bilateral. Musculoskeletal: Disequilibrium. Muscle strength 4+/5 at major joints. Bilateral degenerative knee arthritis. ROM restricted. Neurological: Cranial nerves II-XII grossly intact, DTR 2/4. No hypertonia. Psych/Mental Status: Normal Affect, Appropriate. 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 1. Dizziness with repeated falls and possible syncope/ventriculomegaly with brain atrophy CT of head and neck was unremarkable. ? MRI demonstrates moderate ventriculomegaly disproportionate with the size of the sulcal spaces could represent preferential central atrophy however NPH is still concern ? Patient was evaluated by neurologist. Advised vitamin B12, folate, thiamine level, RPR and HIV Recommended aggressive thiamine replacement 500 mg IV Q8 hourly for 3 days then 250 mg IV daily for 5 days and then 100 mg thiamine p.o. daily. Recommended MRI thoracic and lumbar spine with and without contrast. Patient going for MRI today Outpatient official neurocognitive evaluation and evaluation for restarting medication. 09/19: Continue PT and OT ? Echo is pending ? Telemetry so far is unremarkable 2. Essential HTN/HLD ? Continue with her home blood pressure medications ? Will monitor make adjustments as necessary ? Continue with her home cholesterol medications 3. Fibromyalgia ? Continue with her home meds 4. GERD ? Stable ? Continue with her home PPI DVT: Lovenox Charges/Coding Visit Charges Inpatient E&M: 59592 Subs Hosp L2 NIHSS NIHSS Nursing Documentation NIHSS Nursing Documentation: NIHSS: Ischemic Stroke/TIA Start: 09/17/25 16:13 Freq: Status: Active Protocol: Activity Type Activity Date Activity User E-sign Co-sign Detail Recorded Client Recorded Date Recorded By Document 09/17/25 20:15 DC [id number] 09/17/25 20:29 DC 09/17/25 20:15 NIH Stroke Scale [NIHSS] A score of 0 is normal or asymptomatic . Total possible score is 42. Inpatient: RN or Physician to activate a stroke alert for onset of new stroke symptoms or with NIHSS increase >/= 3 points. Following change in neurological status, NIHSS will be performed per physician order or more frequently PRN. -1a. Level of Consciousness 0 - Alert; keenly responsive -1b. LOC Questions 0 - Answers BOTH questions correctly -1c. LOC Commands 0 - Performs BOTH tasks correctly -2. Best Gaze 0 - Normal -3. Visual 0 - No visual loss -4. Facial Palsy 1 - Minor paralysis ( flattened nasolabial fold , asymmetry on smiling) -5a. Left Arm 0 - No drift; arm holds 90 ( or 45) degrees for full 10 seconds -5b. Right Arm 0 - No drift; arm holds 90 ( or 45) degrees for full 10 seconds -6a. Left Leg 0 - No drift; leg holds 30- degree position for full 5 seconds -6b. Right Leg 1 - Drift; leg falls by the end of 5- seconds, but does not hit bed -7. Limb Ataxia 0 - Absent -'UN' explanation rt hip replacement in past cannot move as well -8. Sensory 1 - Mild-to- moderate sensory loss; -9. Best Language 0 - No aphasia; normal -10. Dysarthria 1 = Mild-to- moderate dysarthria; -11. Extinction and Inattention 0 - No abnormality -Total 4 Query Text:A score of 0 is normal or asymptomatic. Total possible score is 42 . ED: Notify Physician for NIHSS increase by > / = 3 points. Inpatient: RN or Physician to activate a stroke alert for NIHSS increase of > / = 3 points. Coma Scale [Assess] -Eye Opening Spontaneous -Motor Obeys Commands -Verbal Oriented [Total] -Coma Scale Total 15
[2025-09-19 10:30] VITALS: BP 131/79; PULSE 69; RESP 17; TEMP 36.7; O2SAT 96
[2025-09-19] MEDS: Calcium Carb/Vitamin D 1 TABLET Tablet PO (10:43)
[2025-09-19] MEDS: Cholecalciferol (VIT D3) 25 MCG TABLET (1,000 UNITS) PO (10:44)
[2025-09-19] MEDS: 0.9% Saline Lock 10 ML Syringe IV ×2 (10:46→16:51)
--- NOTE | 2025-09-19 12:00 | MRI_ITS ---
PROCEDURE: SPINE LUMBAR W/WO CONTRAST 09/18/2025 REASON FOR EXAM: LOWER EXTREMITY WEAKNESS. Frequent falls. Possible normal pressure hydrocephalus. TECHNIQUE: Procedure Code: [id number] Modality: MR Procedure: SPINE LUMBAR W/WO CONTRAST Multiplanar and multisequence images were obtained without and with intravenous gadolinium-based contrast administration. CONTRAST: Clariscan VOLUME: 16 mL COMPARISON: None FINDINGS: Vertebrae: No fracture. Vertebral body height of the lumbar spine is preserved. Alignment: Normal lumbar lordosis. No significant spondylolisthesis. Conus Medullaris: Terminates at L1/2. Normal signal. L1-2: Minimal, diffuse disc bulge. Mild thickening of ligamentum flavum. Minimal facet hypertrophy. No central stenosis or exit foraminal narrowing. L2-3: Minimal, diffuse disc bulge. Minimal facet hypertrophy. No central stenosis or exit foraminal narrowing. L3-4: [id number], diffuse disc bulge. Moderate facet hypertrophy. Mild thickening of ligamentum flavum. Central canal is not stenotic. Mild exit foraminal narrowing on the right mainly from disc and osteophyte. Correlate with right L3 radiculopathy. L4-5: Moderate, diffuse disc bulge. Severe facet hypertrophy. Severe thickening of ligamentum flavum. Borderline central stenosis at 10 mm AP. Borderline exit foraminal narrowing bilaterally from disc and facet disease. Correlate with L4 radiculopathy. L5-S1: Mild, diffuse disc bulge. Moderate bilateral facet hypertrophy. Moderate thickening of ligamentum flavum. There is contact of the exiting nerve roots by hypertrophic facets bilaterally. Correlate with L5 radiculopathy. Sacrum: Mild edema is partially imaged involving S3 and S4. Vertebral body height is preserved. No fracture. Postcontrast images: Unremarkable Bilateral water signal cysts are seen involving both kidneys. Index cyst left midpole is 12 mm. MRI/Spine Lumbar W/WO Contrast IMPRESSION: 1. Multilevel degenerative disc disease with mild exit foraminal narrowing con tacting the following nerve roots: Right L3, bilateral L4 bilateral L5 2. Borderline central stenosis L4/5. 3. Mild edema of the S3 and S4 vertebral bodies partially imaged. No definite fracture seen. Correlate with focal pain. Reading Location: [id number]
--- NOTE | 2025-09-19 13:00 | MRI_ITS ---
PROCEDURE: SPINE THORACIC W/WO CONTRAST 09/19/2025 REASON FOR EXAM: LE WEAKNESS TECHNIQUE: Thoracic spine MRI without and with intravenous gadolinium-based contrast. Multiplanar and multisequence images were obtained. CONTRAST: Clariscan VOLUME: 16mL COMPARISON: September 17, 2025 cervical spine FINDINGS: Vertebrae: Vertebral body height is preserved. Benign hemangioma is seen involving T10 right of midline measuring 19 mm. Alignment: Normal Spinal Cord: Normal Disc spaces: Minimal disc space narrowing throughout the thoracic spine. At T6 on the right there is a cystic structure measuring 1.0 x 1.6 cm that is possibly a tiny synovial cyst or nerve root sleeve cyst. Favor the latter. Both are benign. Paraspinal Tissues: Unremarkable Postcontrast images: Unremarkable. MRI/Spine Thoracic W/WO Contrast IMPRESSION: No acute abnormality Reading Location: [id number]
[2025-09-19] MEDS: 0.9% Normal Saline (250mL Bag) 250 ML 15 ML IV (14:14)
[2025-09-19 16:54] VITALS: BP 131/79; PULSE 70; RESP 17; TEMP 36.4; O2SAT 95
[2025-09-19 17:54] VITALS: BMI 35.9
[2025-09-19 21:56] VITALS: BP 127/65; PULSE 65; RESP 14; TEMP 36.7; O2SAT 93
[2025-09-20 01:44] VITALS: BMI 36.1
[2025-09-20 01:46] VITALS: BMI 36.1
[2025-09-20 03:05] VITALS: BP 144/69; PULSE 59; RESP 14; TEMP 36.2; O2SAT 95
[2025-09-20 04:44] LABS: Hematocrit 35.9 % (37-47); Hemoglobin 11.9 g/dL (12.0-15.0); Immature Granulocytes Count 0.020 X10^3/uL (0.0-0.0); Mean Corp Hgb Conc 33.1 g/dL (32-36); Mean Corpuscular Volume 93.0 fL (81-99); Mean Platelet Vol. 10.3 fl (6.2-12.0); NRBC Flagged by Analyzer 0 % (0-5); Platelet Count 187 K/mm3 (150-450); RBC Distribution Width CV 12.7 % (11.6-14.6); RBC Distribution Width SD 43.1 fl (35.1-43.9); Red Blood Count 3.86 M/mm3 (4.2-5.4); White Blood Count 6.5 K/mm3 (4.4-11.0)
[2025-09-20 05:03] LABS: Anion Gap 12 (5-15); BUN 29 mg/dL (4-19); BUN/Creat Ratio 39.0 RATIO (10-20); Calcium,Total 9.2 mg/dL (7.6-11.0); Carbon Dioxide 23.4 mmol/L (21.0-32.0); Chloride 107 mmol/L (98-108); Estimated Creatinine Clearance 54.68 ml/min (50-250); Glucose 106 mg/dL (70-99); Potassium 3.7 mmol/L (3.3-5.1)
[2025-09-20] MEDS: Thiamine Hydrochloride 500 MG in 0.9% Normal Saline (100mL Bag) 100 ML 200 MG IV ×3 (06:30→22:39)
--- NOTE | 2025-09-20 08:22 | PCM.PN.HOSP ---
Reason for Visit Chief Complaint: Falls/syncope Objective Data Objective Data Vital Signs: Vital Signs Temp Pulse Resp BP Pulse Ox O2 Del Method O2 Flow Rate 97.1 F L 59 L 14 144/69 H 95 Room Air 2 09/20/25 03:05 09/20/25 03:05 09/20/25 03:05 09/20/25 03:05 09/20/25 03:05 09/20/25 04:06 09/19/25 08:46 Oxygen Flow Rate (L/min) 2 Oxygen Delivery Method Room Air Weight: 184 lb 4.903 oz Body Mass Index (BMI) 36.1 Intake & Output: Intake and Output for Last 24 Hours 09/18/25 09/19/25 09/20/25 23:59 23:59 23:59 Intake Total 300 / 300 333.75 / 483.75 374.25 / 374.25 Output Total 200 / 200 700 / 800 350 / 350 Balance 100 / 100 -366.25 / -316.25 24.25 / 24.25 Lab / Micro Data 09/20/25 03:49 09/20/25 03:49 Labs: Laboratory Results - last 24 hr 09/20/25 03:49: WBC 6.5, RBC 3.86 L, Hgb 11.9 L, Hct 35.9 L, MCV 93.0, MCH 30.8, MCHC 33.1, RDW Std Deviation 43.1, RDW Coeff of [place]haji 12.7, Plt Count 187, MPV 10.3, Immature Gran % (Auto) 0.300, Neut % (Auto) 53.6, Lymph % (Auto) 31.0, [place] % (Auto) 9.9, Eos % (Auto) 4.6, Baso % (Auto) 0.6, Absolute Neuts (auto) 3.5, Absolute Lymphs (auto) 2.03, Nucleated RBC % 0, Sodium 142, Potassium 3.7, Chloride 107, Carbon Dioxide 23.4, Anion Gap 12, BUN 29 H, Creatinine 0.74, Estim Creat Clear Calc 54.68, Est GFR (MDRD) Non-Af 82, BUN/Creatinine Ratio 39.0 H, Glucose 106 H, Calcium 9.2 Radiography Diagnostic Testing: Radiology Impression Lumbar Spine MRI 09/19/25 12:00 IMPRESSION: 1. Multilevel degenerative disc disease with mild exit foraminal narrowing contacting the following nerve roots: Right L3, bilateral L4 bilateral L5 2. Borderline central stenosis L4/5. 3. Mild edema of the S3 and S4 vertebral bodies partially imaged. No definite fracture seen. Correlate with focal pain. Reading Location: [facility] Thoracic Spine MRI 09/19/25 13:00 IMPRESSION: No acute abnormality Reading Location: [facility] Rhythm Strip Rhythm Strip: Sinus Rhythm Rate: 79 Ectopy: None Physical Exam Narrative Seen and examined Patient admitted with recurrent fall. She has bilateral knee arthritis. She has mild shuffling gait. Physical exam General: Alert, Oriented x3, Cooperative HEENT: Atraumatic, PERRLA, EOMI, Normocephalic. Oral: No Gingival or Mucosal Lesions/ Ulcerations Neck: Supple, No JVD, Negative Carotid Bruits Chest wall/Lungs: Air entry diminished in bilateral lung bases. No crepitation/rhonchi Cardiovascular: Regular rate and rhythm, Normal S1,S2, No M/G/R Abdomen: Bowel Sounds Present, Soft, Non Tender, Non-Distended : No dysuria. No renal angle tenderness. No suprapubic tenderness. Extremities: No edema, Capillary Refill Less than 3 Seconds Skin: Some bruise on the left sacral area on the back from fall, present on admission. Dilated varicose vein in lower extremities bilateral. Musculoskeletal: Disequilibrium. Muscle strength 4+/5 at major joints. Bilateral degenerative knee arthritis. ROM restricted. Neurological: Cranial nerves II-XII grossly intact, DTR 2/4. No hypertonia. Psych/Mental Status: Flat affect. 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 Dizziness with repeated falls and possible syncope/ventriculomegaly with brain atrophy CT of head and neck was unremarkable. ? MRI demonstrates moderate ventriculomegaly disproportionate with the size of the sulcal spaces could represent preferential central atrophy however NPH is still concern ? Patient was evaluated by neurologist. Advised vitamin B12, folate, thiamine level, RPR and HIV Recommended aggressive thiamine replacement 500 mg IV Q8 hourly for 3 days then 250 mg IV daily for 5 days and then 100 mg thiamine p.o. daily. Recommended MRI thoracic and lumbar spine with and without contrast. Patient going for MRI today Outpatient official neurocognitive evaluation and evaluation for restarting medication. 09/19: Continue PT and OT ? Echo is pending ? Telemetry so far is unremarkable 09/20: MRI lumbar spine and thoracic spine reviewed. MRI lumbar spine shows multilevel degenerative disc disease with mild exit foraminal narrowing contacting right L3, bilateral L4 and bilateral L5 nerve roots. Borderline canal stenosis L4-5. Mild edema of S3 and S4 vertebral bodies. Thoracic lumbar spine did not reveal acute abnormality. Tried to explain to the patient about MRI finding but she cannot see or hear well. 2. Essential HTN/HLD ? Continue with her home blood pressure medications ? Will monitor make adjustments as necessary ? Continue with her home cholesterol medications 09/20: Echo EF 70%. 3. Fibromyalgia ? Continue with her home meds 4. GERD ? Stable ? Continue with her home PPI DVT: Lovenox Clinical Impression(s) from Imaging Studies Brain CT 09/17/25 10:53 IMPRESSION: Moderate atrophy. Disproportionately larger ventricles in comparison to the sulcal spaces, raising the concern for possible communicating hydrocephalus, such as NPH. Please correlate clinically. Reading Location: [facility] Cervical Spine CT 09/17/25 10:53 IMPRESSION: Multilevel disc space narrowing with the neural foraminal stenosis as described. Reading Location: [facility] Hip/Pelvis X-Ray 09/17/25 12:20 IMPRESSION: Status post right total hip replacement. There is good alignment. No fracture or dislocation is seen. Reading Location: [facility] Shoulder X-Ray 09/17/25 12:20 IMPRESSION: As above. Reading Location: [facility] Brain MRI 09/17/25 14:47 IMPRESSION: Moderate ventriculomegaly, disproportionate with the size of the sulcal spaces. This may represent preferential central atrophy. However, communicating hydrocephalus such as NPH is also a consideration. These findings are congruent with the recent CT on the same day. Please correlate clinically. Mild chronic microvascular ischemic changes. Head/Neck CTA 09/17/25 14:47 IMPRESSION: No hemodynamically significant stenosis in the head and neck. Reading Location: [facility] Echocardiogram 09/17/25 15:23 Interpretation Summary The estimated ejection fraction is 70 %. No evidence for diastolic dysfunction. Lumbar Spine MRI 09/19/25 12:00 IMPRESSION: 1. Multilevel degenerative disc disease with mild exit foraminal narrowing contacting the following nerve roots: Right L3, bilateral L4 bilateral L5 2. Borderline central stenosis L4/5. 3. Mild edema of the S3 and S4 vertebral bodies partially imaged. No definite fracture seen. Correlate with focal pain. Reading Location: [id number] Thoracic Spine MRI 09/19/25 13:00 IMPRESSION: No acute abnormality Reading Location: [id number] Charges/Coding Visit Charges Inpatient E&M: 75224 Subs Hosp L2 NIHSS NIHSS Nursing Documentation NIHSS Nursing Documentation: NIHSS: Ischemic Stroke/TIA Start: 09/17/25 16:13 Freq: Status: Active Protocol: Activity Type Activity Date Activity User E-sign Co-sign Detail Recorded Client Recorded Date Recorded By Document 09/17/25 20:15 DC [id number] 09/17/25 20:29 DC 09/17/25 20:15 NIH Stroke Scale [NIHSS] A score of 0 is normal or asymptomatic . Total possible score is 42. Inpatient: RN or Physician to activate a stroke alert for onset of new stroke symptoms or with NIHSS increase >/= 3 points. Following change in neurological status, NIHSS will be performed per physician order or more frequently PRN. -1a. Level of Consciousness 0 - Alert; keenly responsive -1b. LOC Questions 0 - Answers BOTH questions correctly -1c. LOC Commands 0 - Performs BOTH tasks correctly -2. Best Gaze 0 - Normal -3. Visual 0 - No visual loss -4. Facial Palsy 1 - Minor paralysis ( flattened nasolabial fold , asymmetry on smiling) -5a. Left Arm 0 - No drift; arm holds 90 ( or 45) degrees for full 10 seconds -5b. Right Arm 0 - No drift; arm holds 90 ( or 45) degrees for full 10 seconds -6a. Left Leg 0 - No drift; leg holds 30- degree position for full 5 seconds -6b. Right Leg 1 - Drift; leg falls by the end of 5- seconds, but does not hit bed -7. Limb Ataxia 0 - Absent -'UN' explanation rt hip replacement in past cannot move as well -8. Sensory 1 - Mild-to- moderate sensory loss; -9. Best Language 0 - No aphasia; normal -10. Dysarthria 1 = Mild-to- moderate dysarthria; -11. Extinction and Inattention 0 - No abnormality -Total 4 Query Text:A score of 0 is normal or asymptomatic. Total possible score is 42 . ED: Notify Physician for NIHSS increase by > / = 3 points. Inpatient: RN or Physician to activate a stroke alert for NIHSS increase of > / = 3 points. Coma Scale [Assess] -Eye Opening Spontaneous -Motor Obeys Commands -Verbal Oriented [Total] -Coma Scale Total 15
[2025-09-20 10:30] VITALS: BP 107/62; PULSE 73; RESP 17; TEMP 37.1; O2SAT 98
[2025-09-20] MEDS: Calcium Carb/Vitamin D 1 TABLET Tablet PO (10:33)
[2025-09-20] MEDS: Cholecalciferol (VIT D3) 25 MCG TABLET (1,000 UNITS) PO (10:33)
[2025-09-20 13:10] VITALS: BMI 36.1
[2025-09-20] MEDS: 0.9% Saline Lock 10 ML Syringe IV ×2 (14:31→16:37)
[2025-09-20 16:30] VITALS: BP 136/78; PULSE 75; RESP 17; TEMP 37.1; O2SAT 96
[2025-09-20 22:25] VITALS: BP 129/66; PULSE 64; RESP 14; TEMP 36.6; O2SAT 95
[2025-09-21 03:10] VITALS: BP 142/71; PULSE 69; RESP 14; TEMP 36.6; O2SAT 94
[2025-09-21 03:24] VITALS: BMI 36.8
[2025-09-21 04:26] VITALS: BMI 36.8
[2025-09-21] MEDS: Thiamine Hydrochloride 500 MG in 0.9% Normal Saline (100mL Bag) 100 ML 200 MG IV ×3 (06:27→22:13)
--- NOTE | 2025-09-21 09:10 | CASEMGMT ---
Addendum entered by Janet Abraham 09/21/25 10:31: Per [facility], their [place] staff is fine with pt returning. SW updated. Addendum entered by Janet Abraham 09/21/25 10:17: Another response from [facility] was received that they are sending updates to clinical staff to make sure they can meet her need in [place]. SW updated. Addendum entered by Janet Abraham 09/21/25 10:02: [facility] replied that they are not in network with pts insurance and they are fine with her returning to [place] with HH. SW updated. Original Note: Discharge Planning Updates sent via [employer] to [facility] with note asking if they remain comfortable with pt returning to [place] with HH. Awaiting response. Janet Abraham DC Planning Asst.
[2025-09-21 09:30] VITALS: BP 115/75; PULSE 78; RESP 16; TEMP 36.6; O2SAT 97
[2025-09-21] MEDS: Calcium Carb/Vitamin D 1 TABLET Tablet PO (09:56)
[2025-09-21] MEDS: Cholecalciferol (VIT D3) 25 MCG TABLET (1,000 UNITS) PO (09:56)
--- NOTE | 2025-09-21 12:29 | PCM.PN.HOSP ---
Reason for Visit Chief Complaint: Falls/syncope Objective Data Objective Data Vital Signs: Vital Signs Temp Pulse Resp BP Pulse Ox O2 Del Method O2 Flow Rate 97.8 F 78 16 115/75 97 Room Air 2 09/21/25 09:30 09/21/25 09:30 09/21/25 09:30 09/21/25 09:30 09/21/25 09:30 09/21/25 10:00 09/19/25 08:46 Oxygen Flow Rate (L/min) 2 Oxygen Delivery Method Room Air Weight: 187 lb 6.287 oz Body Mass Index (BMI) 36.8 Intake & Output: Intake and Output for Last 24 Hours 09/19/25 09/20/25 09/21/25 23:59 23:59 23:59 Intake Total 333.75 / 483.75 1221.75 / 1221.75 105 / 105 Output Total 700 / 800 850 / 850 Balance -366.25 / -316.25 371.75 / 371.75 105 / 105 Lab / Micro Data 09/20/25 03:49 09/20/25 03:49 Rhythm Strip Rhythm Strip: Sinus Rhythm Rate: 79 Ectopy: None Physical Exam Narrative Seen and examined Patient admitted with recurrent fall. She has bilateral knee arthritis and lower extremity weakness. She has mild shuffling gait. Patient still has weakness. Physical exam General: Alert, Oriented x3, Cooperative HEENT: Atraumatic, PERRLA, EOMI, Normocephalic. Poor vision. Oral: No Gingival or Mucosal Lesions/ Ulcerations Neck: Supple, No JVD, Negative Carotid Bruits Chest wall/Lungs: Air entry diminished in bilateral lung bases. No crepitation/rhonchi Cardiovascular: Regular rate and rhythm, Normal S1,S2, No M/G/R Abdomen: Bowel Sounds Present, Soft, Non Tender, Non-Distended : No dysuria. No renal angle tenderness. No suprapubic tenderness. Extremities: No edema, Capillary Refill Less than 3 Seconds Skin: Some bruise on the left sacral area on the back from fall, present on admission. Dilated varicose vein in lower extremities bilateral. Musculoskeletal: Disequilibrium. States right leg is more weaker than left. Her right hip and knee 3+/5, left knee and hip 4/5. Bilateral degenerative knee arthritis. ROM restricted. Neurological: Cranial nerves II-XII grossly intact, DTR 2/4. No hypertonia. Psych/Mental Status: Flat affect. 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 Dizziness with repeated falls and possible syncope/ventriculomegaly with brain atrophy CT of head and neck was unremarkable. ? MRI demonstrates moderate ventriculomegaly disproportionate with the size of the sulcal spaces could represent preferential central atrophy however NPH is still concern ? Patient was evaluated by neurologist. Advised vitamin B12, folate, thiamine level, RPR and HIV Recommended aggressive thiamine replacement 500 mg IV Q8 hourly for 3 days then 250 mg IV daily for 5 days and then 100 mg thiamine p.o. daily. Recommended MRI thoracic and lumbar spine with and without contrast. Patient going for MRI today Outpatient official neurocognitive evaluation and evaluation for restarting medication. 09/19: Continue PT and OT ? Echo is pending ? Telemetry so far is unremarkable 09/20: MRI lumbar spine and thoracic spine reviewed. MRI lumbar spine shows multilevel degenerative disc disease with mild exit foraminal narrowing contacting right L3, bilateral L4 and bilateral L5 nerve roots. Borderline canal stenosis L4-5. Mild edema of S3 and S4 vertebral bodies. Thoracic lumbar spine did not reveal acute abnormality. Tried to explain to the patient about MRI finding but she cannot see or hear well. 09/21: Spine surgeon Dr. Gutierrez consulted for further opinion. Further plan as per spine surgeon recommendation. B12 1159. Folate normal. Vitamin B1 pending 2. Essential HTN/HLD ? Continue with her home blood pressure medications ? Will monitor make adjustments as necessary ? Continue with her home cholesterol medications 09/20: Echo EF 70%. 3. Fibromyalgia ? Continue with her home meds 4. GERD ? Stable ? Continue with her home PPI DVT: Lovenox Clinical Impression(s) from Imaging Studies Brain CT 09/17/25 10:53 IMPRESSION: Moderate atrophy. Disproportionately larger ventricles in comparison to the sulcal spaces, raising the concern for possible communicating hydrocephalus, such as NPH. Please correlate clinically. Reading Location: [id number] Cervical Spine CT 09/17/25 10:53 IMPRESSION: Multilevel disc space narrowing with the neural foraminal stenosis as described. Reading Location: [facility] Hip/Pelvis X-Ray 09/17/25 12:20 IMPRESSION: Status post right total hip replacement. There is good alignment. No fracture or dislocation is seen. Reading Location: [facility] Shoulder X-Ray 09/17/25 12:20 IMPRESSION: As above. Reading Location: [id number] Brain MRI 09/17/25 14:47 IMPRESSION: Moderate ventriculomegaly, disproportionate with the size of the sulcal spaces. This may represent preferential central atrophy. However, communicating hydrocephalus such as NPH is also a consideration. These findings are congruent with the recent CT on the same day. Please correlate clinically. Mild chronic microvascular ischemic changes. Head/Neck CTA 09/17/25 14:47 IMPRESSION: No hemodynamically significant stenosis in the head and neck. Reading Location: [id number] Echocardiogram 09/17/25 15:23 Interpretation Summary The estimated ejection fraction is 70 %. No evidence for diastolic dysfunction. Lumbar Spine MRI 09/19/25 12:00 IMPRESSION: 1. Multilevel degenerative disc disease with mild exit foraminal narrowing contacting the following nerve roots: Right L3, bilateral L4 bilateral L5 2. Borderline central stenosis L4/5. 3. Mild edema of the S3 and S4 vertebral bodies partially imaged. No definite fracture seen. Correlate with focal pain. Reading Location: [id number] Thoracic Spine MRI 09/19/25 13:00 IMPRESSION: No acute abnormality Reading Location: [facility] Charges/Coding Visit Charges Inpatient E&M: 53833 Subs Hosp L2 NIHSS NIHSS Nursing Documentation NIHSS Nursing Documentation: NIHSS: Ischemic Stroke/TIA Start: 09/17/25 16:13 Freq: Status: Active Protocol: Activity Type Activity Date Activity User E-sign Co-sign Detail Recorded Client Recorded Date Recorded By Document 09/17/25 20:15 DC [id number] 09/17/25 20:29 DC 09/17/25 20:15 NIH Stroke Scale [NIHSS] A score of 0 is normal or asymptomatic . Total possible score is 42. Inpatient: RN or Physician to activate a stroke alert for onset of new stroke symptoms or with NIHSS increase >/= 3 points. Following change in neurological status, NIHSS will be performed per physician order or more frequently PRN. -1a. Level of Consciousness 0 - Alert; keenly responsive -1b. LOC Questions 0 - Answers BOTH questions correctly -1c. LOC Commands 0 - Performs BOTH tasks correctly -2. Best Gaze 0 - Normal -3. Visual 0 - No visual loss -4. Facial Palsy 1 - Minor paralysis ( flattened nasolabial fold , asymmetry on smiling) -5a. Left Arm 0 - No drift; arm holds 90 ( or 45) degrees for full 10 seconds -5b. Right Arm 0 - No drift; arm holds 90 ( or 45) degrees for full 10 seconds -6a. Left Leg 0 - No drift; leg holds 30- degree position for full 5 seconds -6b. Right Leg 1 - Drift; leg falls by the end of 5- seconds, but does not hit bed -7. Limb Ataxia 0 - Absent -'UN' explanation rt hip replacement in past cannot move as well -8. Sensory 1 - Mild-to- moderate sensory loss; -9. Best Language 0 - No aphasia; normal -10. Dysarthria 1 = Mild-to- moderate dysarthria; -11. Extinction and Inattention 0 - No abnormality -Total 4 Query Text:A score of 0 is normal or asymptomatic. Total possible score is 42 . ED: Notify Physician for NIHSS increase by > / = 3 points. Inpatient: RN or Physician to activate a stroke alert for NIHSS increase of > / = 3 points. Coma Scale [Assess] -Eye Opening Spontaneous -Motor Obeys Commands -Verbal Oriented [Total] -Coma Scale Total 15
--- NOTE | 2025-09-21 13:07 | CASEMGMT ---
Social Work SW called Brijesh Dangelo and left a message. RAYMOND Tejada
--- NOTE | 2025-09-21 13:23 | CASEMGMT ---
Social Work SW spoke with the POA BRIJESH. Brijesh reported he is going to speak with Gricelda at [facility] about private paying for SNF. The patient is currently paying [facility] for [facility]. Brijesh reported they are spending down the patients money until she is eligible for Medicaid. NATALIE explained Medicaid will not pay for skilled rehab. Brijesh reported the patient is adamant that she goes back to [facility] at [place]. NATALIE requested Brijesh update NATALIE about the decision of the patient is discharging back to [facility] or SNF. RAYMOND Tejada
--- NOTE | 2025-09-21 14:09 | CON.PCM_ITS ---
Assessment & Plan Assessment/Plan (1) Lumbar radiculopathy, acute: (2) Neck contusion: PLAN: Plan She describes some limited back pain to the with minimal extension of the lower extremities. Pain does not seem to be a major issue for her at this time she is more concerned with her balance and falls. Due to this I would not pursue an interventional option and she is not wanting treatment plan for her pain at this time after long discussion. MRI imaging was reviewed which showed some multilevel degenerative changes along with some foraminal narrowing. This was discussed with the patient. HPI Consult Data Date of Consult: 09/21/25 HPI Narrative Reason for Consultation: Back pain HPI Narrative: ANAMIKA PERES, is a 80 F who is admitted to hospital with back pain and leg weakness. She has recurrent fall concerns coupled with dizziness. She has worsening memory loss and lives in a nursing facility. Her POA was present to assist with history. She states she has had back pain in the past and received injections previously with good relief. She says currently she has relatively minimal back pain. She does feel some weakness in her legs. Her balance has gotten progressively worse over the past 2 months. Currently she has difficulty ambulating even a few steps. She has had multiple falls. She says her pain is usually due to acute pain resulting from whatever she had when she fell. She reports relatively minimal pain sitting in her chair. Thoracic MRI Disc spaces: Minimal disc space narrowing throughout the thoracic spine. At T6 on the right there is a cystic structure measuring 1.0 x 1.6 cm that is possibly a tiny synovial cyst or nerve root sleeve cyst. Favor the latter. Both are benign. Lumbar MRI: IMPRESSION: 1. Multilevel degenerative disc disease with mild exit foraminal narrowing contacting the following nerve roots: Right L3, bilateral L4 bilateral L5 2. Borderline central stenosis L4/5. 3. Mild edema of the S3 and S4 vertebral bodies partially imaged. No definite fracture seen. Correlate with focal pain. Hip/Pelvis X-Ray 09/17/25 IMPRESSION: Status post right total hip replacement. There is good alignment. No fracture or dislocation is seen. [facility] Medical History Carpal tunnel syndrome on right Cellulitis of left upper arm Essential hypertension Nonobstructive atherosclerosis of coronary artery Hyperlipidemia Cholelithiasis Macular degeneration Fibromyalgia GERD (gastroesophageal reflux disease) Home Medications ?Medication ?Instructions ?Recorded ?Last Taken ?Type Leticia Allergy 180 mg PO DAILY PRN allergy 05/17/18 Unknown History omeprazole 20 mg capsule,delayed 20 mg PO DAILY reflux 05/17/18 11/24/20 04:00 History release 20 MG potassium chloride 10 mEq 10 meq PO DAILY supplement 0 05/17/18 Unknown History capsule,extended release calcium 600 mg (as 1 ea PO DAILY supplement Unknown History carbonate)-vitamin D3 12.5 mcg (500 unit) capsule vitamin E 268 mg (400 unit) capsule 1,000 unit PO MARIELA Y supplement 05/29/18 Unknown History cholecalciferol (vitamin D3) 25 4,000 unit PO DAILY pu re 09/12/18 Unknown History mcg (1,000 unit) tablet hyperglyceridemia gemfibrozil 600 mg tablet 600 mg PO BID pure 06/03/20 Unknown Rx hyperglyceridemia #180 tabs aspirin 81 mg chewable tablet 81 mg PO DAILY heart 06/30 Unknown History acetaminophen 500 mg tablet 1,000 mg PO Q6H PRN pain 1 11/18/24 Unknown History alprazolam 0.25 mg tablet 0.125 mg PO DAILY PRN anxiet y 09/17/25 Unknown History ascorbic acid 125 mg-collagen, 1 cap PO DAILY suppleme nt 09/17/25 Unknown History hydrolyzed 740 mg capsule calcium carbonate (Antacid See Rx Instructions PO .COM PLEX 09/17/25 Unknown History (calcium carbonate)) PRN dyspepsia cyanocobalamin (vitamin B-12) 1,000 mcg PO DAILY suppl ement 09/17/25 Unknown History 1,000 mcg capsule dextromethorphan-guaifenesin 30 1 tab PO DAILY PRN cou gh 09/17/25 Unknown History mg-600 mg tablet extended [id number] hr (Mucinex DM) docusate sodium 100 mg capsule 100 mg PO QHS constipat ion 09/17/25 Unknown History (Colace) loperamide 2 mg capsule 2 mg PO Q6H PRN loose stool 09/17/25 Unknown History (Anti-Diarrheal (loperamide)) phenylephrine 0.25 %-mineral oil 1 applic NH Q6H PRN P RN hemorrhoids 09/17/25 Unknown History 14 %-petrolatm 74.9 % rectal ointment (Preparation H) polyethylene glycol 3350 17 17 g PO DAILY PRN constipa tion 09/17/25 Unknown History gram/dose oral powder (Miralax) sertraline 25 mg tablet 25 mg PO QHS depression 09/07 11/01 Unknown History vit C 250 mg-vit E 90 mg-zinc 40 2 tab PO DAILY macula r degeneration 09/17/25 Unknown History mg-copper 1 [id number] capsule (PreserVision AREDS-2) Allergy/AdvReac Type Severity Reaction Status Date / Time ampicillin Allergy Rash Verified 09/17/25 10:07 lisinopril Allergy Rash Verified 09/17/25 10:07 Penicillins (PCN) Allergy Rash Verified 09/17/25 10:07 simvastatin AdvReac Severe Myalgias, Verified 09/17/25 10:07 flu like sx Family History Mother , of cancer Arrhythmia Cancer Father , of [place] Myocardial infarction CAD (coronary artery disease) Carotid disease, bilateral Surgical History History of right hip replacement History of cholecystectomy (2018) History of left heart catheterization (06/19/18) S/P anal fissurectomy Social History (Updated 09/17/25 @ 15:53 by Hiral Rodriguez) household members: none housing: assisted living facility Smoking Status: Never smoker alcohol intake: never substance use type: does not use ROS Constitutional Constitutional: Reports weakness; Denies anorexia, change in weight, chills, fatigue, fever(s), malaise, night sweats or other Eyes Eyes: Reports other Details: Macular degeneration at baseline with central vision loss ; Denies blurry vision, change in eye color, change in vision, discharge from eye(s), double vision, erythema, eye pain or loss of vision ENT HEENT: Denies abnormal hearing, dysphagia, ear pain, epistaxis, headache(s), hearing loss, nasal congestion, nasal discharge, post nasal drip, sinus pressure, sore throat or other Cardiovascular Cardiovascular: Reports syncope; Denies chest pain, claudication, dyspnea on exertion, edema, lightheadedness, orthopnea, palpitations, paroxysmal nocturnal dyspnea, rapid heart rate or other Respiratory/Chest Respiratory/Chest: Denies cough, dyspnea, excessive phlegm production, hemoptysis, productive cough, shortness of breath at rest, shortness of breath with exertion, wheezing or other Gastrointestinal Gastrointestinal: Denies abdominal pain, coffee ground emesis, constipation, diarrhea, dyspepsia, hematemesis, hematochezia, loose stools, melena, nausea, vomiting or other Genitourinary Genitourinary: Denies burning urination, difficulty urinating, dysuria, hematuria, nocturia, urinary frequency, urinary hesitancy, urinary incontinence, urinary urgency or other Musculoskeletal Musculoskeletal: Reports back pain and neck pain; Denies arthralgias, joint pain, joint stiffness, joint swelling, myalgias or other Neurologic Neurologic: Reports abnormal speech, confusion, disequilibrium and syncope Psychiatric Psychiatric: Denies anxiety, depression, homicidal ideation, suicidal ideation or other Endocrine Endocrinology: Denies change in body appearance, cold intolerance, excessive sweating, heat intolerance, polydipsia, polyuria or other Hematologic/Lymphatic Hematologic/Lymphatic: Denies anemia, easy bleeding, easy bruising, lymphadenopathy or other Allergic/Immunologic Allergic/Immunologic: Denies rhinitis, hives, eczemia, asthma or other Physical Exam Narrative Lumbar Paraspinal tenderness + bilaterally SLR - bilaterally Const alert, oriented x3 and no apparent distress HEENT HEENT Narrative: Paraspinal tenderness and right trapezius tenderness + Resp normal respiratory effort Neuro deep tendon reflexes 2+ bilaterally Neuro Narrative: 4/5 right hip flexion, otherwise normal motor strength, but effort dependent. Psych affect normal Psych Narrative: Some memory limitation Lab / Micro Data 09/20/25 03:49 09/20/25 03:49 Rhythm Strip Rhythm Strip: Sinus Rhythm Rate: 79 Ectopy: None
[2025-09-21 15:45] VITALS: BMI 36.8
[2025-09-21 16:52] VITALS: BMI 36.8
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
[2025-09-21 20:33] VITALS: BP 142/98; PULSE 72; RESP 16; TEMP 36.3; O2SAT 95
[2025-09-21] MEDS: 0.9% Saline Lock 10 ML Syringe IV (22:13)
[2025-09-22 00:26] VITALS: BMI 38.6
[2025-09-22 01:21] VITALS: BMI 38.6
[2025-09-22 03:00] VITALS: BP 129/74; PULSE 66; RESP 16; TEMP 36; O2SAT 95
[2025-09-22] MEDS: Thiamine Hydrochloride 500 MG in 0.9% Normal Saline (100mL Bag) 100 ML 200 MG IV ×2 (05:33→13:37)
[2025-09-22] MEDS: 0.9% Saline Lock 10 ML Syringe IV (05:33)
[2025-09-22 07:56] VITALS: O2SAT 94
[2025-09-22 09:00] VITALS: BP 127/70; PULSE 73; RESP 15; TEMP 36.4; O2SAT 94
[2025-09-22] MEDS: Cholecalciferol (VIT D3) 25 MCG TABLET (1,000 UNITS) PO (09:00)
[2025-09-22] MEDS: Calcium Carb/Vitamin D 1 TABLET Tablet PO (09:01)
--- NOTE | 2025-09-22 10:39 | CASEMGMT ---
Social Work SW called the POA and informed him that the patient is DC today. Brijesh reported he has not heard back yet if the VL regarding the patient getting skilled services at the [place]. [facility] is [facility] at accept the patient back into [facility] with services. RAYMOND Tejada
--- NOTE | 2025-09-22 10:41 | PCM.TXEXTCAR ---
Diet Diet Order/Speech Therapy: INPATIENT Hospital Diet / Speech Therapy Order(s) 09/17/25 15:48 Diet: Cardiac - Heart Healthy Food consistency:: Regular Liquid Consistency:: Regular/Thin Routine Orders/Code Status Suppository Type: Dulcolax 10mg Suppository Frequency: Daily PRN DC O2, CPAP, BIPAP needs Home O2 Discharge instructions: No Therapies Extremity Affected:: Bilateral Lower Physical Therapy: Eval and Treat Occupational Therapy: Eval and Treat Speech Therapy: Eval and Treat Problem/Diagnosis (1) Other intervertebral disc degeneration, lumbar region with discogenic back pain and lower extremity pain: Status: Acute Code(s): M51.362 - Other intervertebral disc degeneration, lumbar region with discogenic back pain and lower extremity pain (2) Balance problem: Status: Acute Code(s): R26.89 - Other abnormalities of gait and mobility (3) Syncopal episodes: Status: Acute Code(s): R55 - Syncope and collapse (4) Memory changes: Status: Acute Code(s): R41.3 - Other amnesia Plan 80-year-old female was admitted with progressively worsening fall, failing memory/amnesia over the last 1. Dizziness with repeated falls and possible syncope/ventriculomegaly with brain atrophy CT of head and neck was unremarkable. ? MRI demonstrates moderate ventriculomegaly disproportionate with the size of the sulcal spaces could represent preferential central atrophy however NPH is still concern ? Patient was evaluated by neurologist. Advised vitamin B12, folate, thiamine level, RPR and HIV Recommended aggressive thiamine replacement 500 mg IV Q8 hourly for 3 days then 250 mg IV daily for 5 days and then 100 mg thiamine p.o. daily. Recommended MRI thoracic and lumbar spine with and without contrast. Patient going for MRI today Outpatient official neurocognitive evaluation and evaluation for restarting medication. 09/19: Continue PT and OT ? Echo is pending ? Telemetry so far is unremarkable 09/20: MRI lumbar spine and thoracic spine reviewed. MRI lumbar spine shows multilevel degenerative disc disease with mild exit foraminal narrowing contacting right L3, bilateral L4 and bilateral L5 nerve roots. Borderline canal stenosis L4-5. Mild edema of S3 and S4 vertebral bodies. Thoracic lumbar spine did not reveal acute abnormality. Tried to explain to the patient about MRI finding but she cannot see or hear well. 09/21: Spine surgeon Dr. Gutierrez consulted for further opinion. Further plan as per spine surgeon recommendation. B12 1159. Folate normal. Vitamin B1 pending 2. Essential HTN/HLD ? Continue with her home blood pressure medications ? Will monitor make adjustments as necessary ? Continue with her home cholesterol medications 09/20: Echo EF 70%. 3. Fibromyalgia ? Continue with her home meds 4. GERD ? Stable ? Continue with her home PPI DVT: Lovenox Clinical Impression(s) from Imaging Studies Brain CT 09/17/25 10:53 IMPRESSION: Moderate atrophy. Disproportionately larger ventricles in comparison to the sulcal spaces, raising the concern for possible communicating hydrocephalus, such as NPH. Please correlate clinically. Reading Location: [facility] Cervical Spine CT 09/17/25 10:53 IMPRESSION: Multilevel disc space narrowing with the neural foraminal stenosis as described. [facility] Hip/Pelvis X-Ray 09/17/25 12:20 IMPRESSION: Status post right total hip replacement. There is good alignment. No fracture or dislocation is seen. Reading Location: [id number] Shoulder X-Ray 09/17/25 12:20 IMPRESSION: As above. Reading Location: [id number] Brain MRI 09/17/25 14:47 IMPRESSION: Moderate ventriculomegaly, disproportionate with the size of the sulcal spaces. This may represent preferential central atrophy. However, communicating hydrocephalus such as NPH is also a consideration. These findings are congruent with the recent CT on the same day. Please correlate clinically. Mild chronic microvascular ischemic changes. Head/Neck CTA 09/17/25 14:47 IMPRESSION: No hemodynamically significant stenosis in the head and neck. Reading Location: [id number] Echocardiogram 09/17/25 15:23 Interpretation Summary The estimated ejection fraction is 70 %. No evidence for diastolic dysfunction. Lumbar Spine MRI 09/19/25 12:00 IMPRESSION: 1. Multilevel degenerative disc disease with mild exit foraminal narrowing contacting the following nerve roots: Right L3, bilateral L4 bilateral L5 2. Borderline central stenosis L4/5. 3. Mild edema of the S3 and S4 vertebral bodies partially imaged. No definite fracture seen. Correlate with focal pain. Reading Location: [facility] Thoracic Spine MRI 09/19/25 13:00 IMPRESSION: No acute abnormality Reading Location: [facility] Allergies/Procedures Done in Hospital Allergies ampicillin Allergy (Verified 09/17/25 10:07) Rash lisinopril Allergy (Verified 09/17/25 10:07) Rash Penicillins (PCN) Allergy (Verified 09/17/25 10:07) Rash simvastatin Adverse Reaction (Severe, Verified 09/17/25 10:07) Myalgias, flu like sx Type of Care/Length of Stay Estimated LOS: Convalescent Care Less Than 30 days Type of Care Needed: Skilled Rehab Potential: Good Prognosis: Good Additional Orders/Day of Discharge Day of Discharge: 09/22/25 Dietary and Speech Recommendations Dietitian Recommendations/Changes: Continue cardiac diet. Will monitor weight trends. Discharge Plan Admission Admit Date/Time: 09/17/25 14:41 Attending Provider: Rocco Lazo Primary Care Provider: Melany Russo Consulting Providers: Mayte Esqueda; Blanco Kimball; Ion Estes; Blanco Hernandez Discharge Orders/Prescriptions Prescriptions: New sennosides-docusate sodium [Stimulant Laxative Plus] 8.6-50 mg Tablet 2 tab PO BID PRN PRN (Reason: Constipation) Qty: 0 0RF chlorthalidone 25 mg Tablet 12.5 mg PO DAILY Qty: 0 0RF atenolol 50 mg Tablet 50 mg PO DAILY Qty: 0 0RF lidocaine 5 % Adhesive Patch,Medicated 1 patch topical DAILY 3 Days Qty: 3 0RF Protocol: *Topical Application Instructions APPLICATION INSTRUCTIONS: affected area Remove Patch 1 patch topical DAILY@2200 Qty: 0 0RF Continued cholecalciferol (vitamin D3) 1,000 unit tablet 4,000 unit PO DAILY Leticia Allergy 180 mg PO DAILY PRN (Reason: allergy) potassium chloride 10 MEQ capsule, extended release 10 meq PO DAILY omeprazole 20 MG capsule,delayed release(DR/EC) 20 mg PO DAILY vitamin E 400 UNIT capsule 1,000 unit PO DAILY calcium carbonate-vitamin D3 1 EACH capsule 1 ea PO DAILY aspirin 81 MG tablet,chewable 81 mg PO DAILY Rx Instructions: Take 81 mg aspirin twice daily for 4 weeks postoperatively for DVT prophylaxis Mucinex DM 30-600 mg tablet extended release 12 hr 1 tab PO DAILY PRN (Reason: cough) ascorbic acid-collagen 125-740 mg capsule 1 cap PO DAILY cyanocobalamin (vitamin B-12) 1,000 mcg capsule 1,000 mcg PO DAILY loperamide [Anti-Diarrheal (loperamide)] 2 mg capsule 2 mg PO Q6H PRN (Reason: loose stool) PreserVision AREDS-2 250-90-40-1 mg capsule 2 tab PO DAILY sertraline 25 mg tablet 25 mg PO QHS polyethylene glycol 3350 [Miralax] 17 gram/dose powder 17 g PO DAILY PRN (Reason: constipation) Preparation H 0.25-14-74.9 % ointment 1 applic [place] Q6H PRN PRN (Reason: hemorrhoids) calcium carbonate [Antacid (calcium carbonate)] 200 mg calcium (500 mg) tablet,chewable See Rx Instructions PO .COMPLEX PRN (Reason: dyspepsia) Rx Instructions: 1-2 tabs orally PRN; alprazolam 0.25 mg tablet 0.125 mg PO DAILY PRN (Reason: anxiety) acetaminophen 500 MG tablet 1,000 mg PO Q6H PRN (Reason: pain) Rx Instructions: Do not take more than 3000 mg Tylenol in a 24-hour period. gemfibrozil 600 mg tablet 600 mg PO BID Qty: 180 3RF Discontinued docusate sodium [Colace] 100 mg capsule 100 mg PO QHS Referrals / Follow Up: Melany Russo MD [Primary Care Provider, Internal Medicine] (3) Syncopal episodes Qualifiers: Syncope type: unspecified Qualified Code(s): R55 - Syncope and collapse
--- NOTE | 2025-09-22 10:51 | CASEMGMT ---
Discharge Planning Note sent to [facility] asking them to follow up with pts POA to finalize dc location (SNF vs return to [place]). Awaiting response. Janet Abraham, [place] Planning Asst.
--- NOTE | 2025-09-22 12:06 | CASEMGMT ---
Social Work NATALIE spoke with the POIngrid ARRIAGA and he reported patient is going back to [facility]. Brijesh spoke with [facility]. RAYMOND Tejada
--- NOTE | 2025-09-22 12:13 | CASEMGMT ---
Discharge Planning [facility] notified via [employer] that pts HC POA wishes for her to admit to snf for skilled stay. Janet Abraham DC Planning Asst.
--- NOTE | 2025-09-22 14:01 | PCM.DC.SUM ---
Providers Date of Admission: 09/17/25 Date of Discharge: 09/22/25 Primary Care Physician: Dr. Melany Russo MD Consultations 09/17/25 15:48 Consult: Tele-Neurology Routine Consulting Provider: [facility] Reason for Consult: ?NPH EMERGENT Consult: No MD Notified: Yes Date Notified: 09/17/25 Time Notified: 15:59 Method of Notification: Answering Service Nursing Unit Staff Notify [facility] of Tele-Neurology Consult: Yes 09/20/25 16:52 Consult: Orthopedics Routine Consulting Provider: Ion Estes Reason for Consult: lumbar radiculopathy pain and leg weakness EMERGENT Consult: No MD Notified: Yes Date Notified: 09/20/25 Time Notified: 16:52 Method of Notification: Text 09/21/25 13:18 Consult: Pain Management Routine Consulting Provider: Blanco Hernandez Reason for Consult: Bilateral L4-L5 and right L3 radiculopathy, paraparesis, Rt more than left EMERGENT Consult: No MD Notified: Yes Date Notified: 09/21/25 Time Notified: 13:19 Method of Notification: Text Reason For Visit: FALLS\ DIZZINESS Diagnosis Discharge Diagnosis (1) Other intervertebral disc degeneration, lumbar region with discogenic back pain and lower extremity pain: Status: Acute Code(s): M51.362 - Other intervertebral disc degeneration, lumbar region with discogenic back pain and lower extremity pain (2) Balance problem: Status: Acute Code(s): R26.89 - Other abnormalities of gait and mobility (3) Syncopal episodes: Status: Acute Code(s): R55 - Syncope and collapse Qualifiers: Syncope type: unspecified Qualified Code(s): R55 - Syncope and collapse (4) Memory changes: Status: Acute Code(s): R41.3 - Other amnesia Plan 80-year-old female was admitted with progressively worsening fall, failing memory/amnesia over the last 1. Dizziness with repeated falls and possible syncope/ventriculomegaly with brain atrophy CT of head and neck was unremarkable. ? MRI demonstrates moderate ventriculomegaly disproportionate with the size of the sulcal spaces could represent preferential central atrophy however NPH is still concern ? Patient was evaluated by neurologist. Advised vitamin B12, folate, thiamine level, RPR and HIV Recommended aggressive thiamine replacement 500 mg IV Q8 hourly for 3 days then 250 mg IV daily for 5 days and then 100 mg thiamine p.o. daily. Recommended MRI thoracic and lumbar spine with and without contrast. Patient going for MRI today Outpatient official neurocognitive evaluation and evaluation for restarting medication. 09/19: Continue PT and OT ? Echo is pending ? Telemetry so far is unremarkable 09/20: MRI lumbar spine and thoracic spine reviewed. MRI lumbar spine shows multilevel degenerative disc disease with mild exit foraminal narrowing contacting right L3, bilateral L4 and bilateral L5 nerve roots. Borderline canal stenosis L4-5. Mild edema of S3 and S4 vertebral bodies. Thoracic lumbar spine did not reveal acute abnormality. Tried to explain to the patient about MRI finding but she cannot see or hear well. 09/21: Spine surgeon Dr. Gutierrez consulted for further opinion. Further plan as per spine surgeon recommendation. B12 1159. Folate normal. Vitamin B1 pending 09/22: Discussed with the orthospine surgeon Dr. Gutierrez in consult reviewed. He reviewed patient's thoracic and lumbar MRI and shows L3-S1 disc degeneration with mild stenosis but no cord compression. CT C-spine shows possible stenosis with cord indentation. Patient has pain only on changing position or walking. No hyperreflexia or signs of upper motor neuron lesion. Orthospine surgeon impression/diagnosis your fall was more due to syncopal event or inner ear episode with balance. Patient was also evaluated by pain pain campaign management senior manager and has some limited back pain to minimal extension of the lower extremity. Prescription for lidocaine given. 2. Essential HTN/HLD ? Continue with her home blood pressure medications ? Will monitor make adjustments as necessary ? Continue with her home cholesterol medications 09/20: Echo EF 70%. 09/22: On atenolol and chlorthalidone. 3. Fibromyalgia ? Continue with her home meds 4. GERD ? Stable ? Continue with her home PPI DVT: Lovenox Discharge medication reconciliation done. Discharge follow-up instructions completed. Discharge process discussed with the patient and all questions were answered to patient's satisfaction. Follow with PCP in 1 to 2 weeks Total time spent, exact 35 minutes on discharge meds reconciliation, examination, coordination of care with nurses and ancillary staff, review of imaging and blood test and discussion with the patient on follow-up instructions. Clinical Impression(s) from Imaging Studies Brain CT 09/17/25 10:53 IMPRESSION: Moderate atrophy. Disproportionately larger ventricles in comparison to the sulcal spaces, raising the concern for possible communicating hydrocephalus, such as NPH. Please correlate clinically. Reading Location: [id number] Cervical Spine CT 09/17/25 10:53 IMPRESSION: Multilevel disc space narrowing with the neural foraminal stenosis as described. Reading Location: [facility] Hip/Pelvis X-Ray 09/17/25 12:20 IMPRESSION: Status post right total hip replacement. There is good alignment. No fracture or dislocation is seen. Reading Location: [facility] Shoulder X-Ray 09/17/25 12:20 IMPRESSION: As above. Reading Location: [id number] Brain MRI 09/17/25 14:47 IMPRESSION: Moderate ventriculomegaly, disproportionate with the size of the sulcal spaces. This may represent preferential central atrophy. However, communicating hydrocephalus such as NPH is also a consideration. These findings are congruent with the recent CT on the same day. Please correlate clinically. Mild chronic microvascular ischemic changes. Head/Neck CTA 09/17/25 14:47 IMPRESSION: No hemodynamically significant stenosis in the head and neck. Reading Location: [facility] Echocardiogram 09/17/25 15:23 Interpretation Summary The estimated ejection fraction is 70 %. No evidence for diastolic dysfunction. Lumbar Spine MRI 09/19/25 12:00 IMPRESSION: 1. Multilevel degenerative disc disease with mild exit foraminal narrowing contacting the following nerve roots: Right L3, bilateral L4 bilateral L5 2. Borderline central stenosis L4/5. 3. Mild edema of the S3 and S4 vertebral bodies partially imaged. No definite fracture seen. Correlate with focal pain. Reading Location: [id number] Thoracic Spine MRI 09/19/25 13:00 IMPRESSION: No acute abnormality Reading Location: [facility] Medications at Discharge Home Medications Leticia Allergy 180 mg PO DAILY PRN allergy 05/17/18 omeprazole 20 mg capsule,delayed release 20 mg PO DAILY reflux 05/17/18 potassium chloride 10 mEq capsule,extended release 10 meq PO DAILY supplement 05/17/18 calcium 600 mg (as carbonate)-vitamin D3 12.5 mcg (500 unit) capsule 1 ea PO DAILY supplement 05/29/18 vitamin E 268 mg (400 unit) capsule 1,000 unit PO DAILY supplement 05/29/18 cholecalciferol (vitamin D3) 25 mcg (1,000 unit) tablet 4,000 unit PO DAILY pure hyperglyceridemia 09/12/18 gemfibrozil 600 mg tablet 600 mg PO BID pure hyperglyceridemia #180 tabs 06/03/20 aspirin 81 mg chewable tablet 81 mg PO DAILY heart 02/13/23 acetaminophen 500 mg tablet 1,000 mg PO Q6H PRN pain 09/17/25 alprazolam 0.25 mg tablet 0.125 mg PO DAILY PRN anxiety 09/17/25 ascorbic acid 125 mg-collagen, hydrolyzed 740 mg capsule 1 cap PO DAILY supplement 09/17/25 calcium carbonate (Antacid (calcium carbonate)) See Rx Instructions PO .COMPLEX PRN dyspepsia 09/17/25 cyanocobalamin (vitamin B-12) 1,000 mcg capsule 1,000 mcg PO DAILY supplement 09/17/25 dextromethorphan-guaifenesin 30 mg-600 mg tablet extended [id number] hr (Mucinex DM) 1 tab PO DAILY PRN cough 09/17/25 loperamide 2 mg capsule (Anti-Diarrheal (loperamide)) 2 mg PO Q6H PRN loose stool 09/17/25 phenylephrine 0.25 %-mineral oil 14 %-petrolatm 74.9 % rectal ointment (Preparation H) 1 applic IL Q6H PRN PRN hemorrhoids 09/17/25 polyethylene glycol 3350 17 gram/dose oral powder (Miralax) 17 g PO DAILY PRN constipation 09/17/25 sertraline 25 mg tablet 25 mg PO QHS depression 09/17/25 vit C 250 mg-vit E 90 mg-zinc 40 mg-copper 1 [id number] capsule (PreserVision AREDS-2) 2 tab PO DAILY macular degeneration 09/17/25 Remove Patch 1 patch topical DAILY@2200 ##0 09/22/25 atenolol 50 mg tablet 50 mg PO DAILY #0 tabs 09/22/25 chlorthalidone 25 mg tablet 12.5 mg (1/2 x 25 mg) PO DAILY #0 tabs 09/22/25 lidocaine 5 % topical patch 1 patch topical DAILY 3 days #3 ea 09/22/25 sennosides 8.6 mg-docusate sodium 50 mg tablet (Stimulant Laxative Plus) 2 tab PO BID PRN PRN Constipation #0 tabs 09/22/25 Physical Exam Narrative Seen and examined Patient admitted with recurrent fall. She has bilateral knee arthritis and lower extremity weakness. She has mild shuffling gait. Patient still has weakness. Complain of pain only on changing position or walking, mild in nature Physical exam General: Alert, Oriented x3, Cooperative HEENT: Atraumatic, PERRLA, EOMI, Normocephalic. Poor vision. Oral: No Gingival or Mucosal Lesions/ Ulcerations Neck: Supple, No JVD, Negative Carotid Bruits Chest wall/Lungs: Air entry diminished in bilateral lung bases. No crepitation/rhonchi Cardiovascular: Regular rate and rhythm, Normal S1,S2, No M/G/R Abdomen: Bowel Sounds Present, Soft, Non Tender, Non-Distended : No dysuria. No renal angle tenderness. No suprapubic tenderness. Extremities: No edema, Capillary Refill Less than 3 Seconds Skin: Some bruise on the left sacral area on the back from fall, present on admission, healing. Dilated varicose vein in lower extremities bilateral. Musculoskeletal: Disequilibrium. States right leg is more weaker than left. Her right hip and knee 3+/5, left knee and hip 4/5. Bilateral degenerative knee arthritis. ROM restricted. Spine: Mild tenderness over lower sacral area. Neurological: Cranial nerves II-XII grossly intact, DTR 2/4. No hypertonia. Psych/Mental Status: Flat affect. Weight / BMI Weight Weight: 197 lb 12.074 oz Body Mass Index (BMI) 38.6 ABG / Lab / Microbiology Data 09/20/25 03:49 09/20/25 03:49 D/C Instructions DC O2, CPAP, BIPAP Needs Home O2 Discharge instructions: No Meaningful Use Info Meaningful Use Meaningful Use Diagnoses (Choose all that apply): None applicable Discharge Plan Admission Admit Date/Time: 09/17/25 14:41 Attending Provider: Rocco Lazo Primary Care Provider: Melany Russo Consulting Providers: Mayte Esqueda; Blanco Kimball; Ion Estes; Blanco Hernandez Discharge Orders/Prescriptions Prescriptions: New sennosides-docusate sodium [Stimulant Laxative Plus] 8.6-50 mg Tablet 2 tab PO BID PRN PRN (Reason: Constipation) Qty: 0 0RF chlorthalidone 25 mg Tablet 12.5 mg PO DAILY Qty: 0 0RF atenolol 50 mg Tablet 50 mg PO DAILY Qty: 0 0RF lidocaine 5 % Adhesive Patch,Medicated 1 patch topical DAILY 3 Days Qty: 3 0RF Protocol: *Topical Application Instructions APPLICATION INSTRUCTIONS: affected area Remove Patch 1 patch topical DAILY@2200 Qty: 0 0RF Continued cholecalciferol (vitamin D3) 1,000 unit tablet 4,000 unit PO DAILY Leticia Allergy 180 mg PO DAILY PRN (Reason: allergy) potassium chloride 10 MEQ capsule, extended release 10 meq PO DAILY omeprazole 20 MG capsule,delayed release(DR/EC) 20 mg PO DAILY vitamin E 400 UNIT capsule 1,000 unit PO DAILY calcium carbonate-vitamin D3 1 EACH capsule 1 ea PO DAILY aspirin 81 MG tablet,chewable 81 mg PO DAILY Rx Instructions: Take 81 mg aspirin twice daily for 4 weeks postoperatively for DVT prophylaxis Mucinex DM 30-600 mg tablet extended release 12 hr 1 tab PO DAILY PRN (Reason: cough) ascorbic acid-collagen 125-740 mg capsule 1 cap PO DAILY cyanocobalamin (vitamin B-12) 1,000 mcg capsule 1,000 mcg PO DAILY loperamide [Anti-Diarrheal (loperamide)] 2 mg capsule 2 mg PO Q6H PRN (Reason: loose stool) PreserVision AREDS-2 250-90-40-1 mg capsule 2 tab PO DAILY sertraline 25 mg tablet 25 mg PO QHS polyethylene glycol 3350 [Miralax] 17 gram/dose powder 17 g PO DAILY PRN (Reason: constipation) Preparation H 0.25-14-74.9 % ointment 1 applic IL Q6H PRN PRN (Reason: hemorrhoids) calcium carbonate [Antacid (calcium carbonate)] 200 mg calcium (500 mg) tablet,chewable See Rx Instructions PO .COMPLEX PRN (Reason: dyspepsia) Rx Instructions: 1-2 tabs orally PRN; alprazolam 0.25 mg tablet 0.125 mg PO DAILY PRN (Reason: anxiety) acetaminophen 500 MG tablet 1,000 mg PO Q6H PRN (Reason: pain) Rx Instructions: Do not take more than 3000 mg Tylenol in a 24-hour period. gemfibrozil 600 mg tablet 600 mg PO BID Qty: 180 3RF Discontinued docusate sodium [Colace] 100 mg capsule 100 mg PO QHS Referrals / Follow Up: Ion Estes MD [Med Staff - Active Staff, Orthopedics] - Within 1 Month Rodo Esposito MD [Med Staff - Active Staff, Ear Nose Throat (ENT)] - Within 1 Month Referral Note: To evaluate inner ear for imbalance/disequilibrium and recurrent fall Melany Russo MD [Primary Care Provider, Internal Medicine] Ricardo Tolbert MD [Non-Staff -Ordering Privileges, Neurology] - Within 1 Month Referral Note: For balance and disequilibrium Disposition Disposition (needs filled in before D/C Order can be placed): Long-Term Facility Charges/Coding Visit Charges Inpatient E&M: 66515 Disch Hosp >30min
[2025-09-22 14:05] VITALS: BMI 38.6
--- NOTE | 2025-09-22 14:21 | PHA.DC.MR.R ---
Pharmacy [place] Med Reconciliation Pharmacy Service has performed discharge medication reconciliation for this patient. The patient's discharge medication list was reviewed for discrepancies and discrepancies were resolved. Medications at Discharge Home Medications Leticia Allergy 180 mg PO DAILY PRN allergy 05/17/18 omeprazole 20 mg capsule,delayed release 20 mg PO DAILY reflux 05/17/18 potassium chloride 10 mEq capsule,extended release 10 meq PO DAILY supplement 05/17/18 calcium 600 mg (as carbonate)-vitamin D3 12.5 mcg (500 unit) capsule 1 ea PO DAILY supplement 05/29/18 vitamin E 268 mg (400 unit) capsule 1,000 unit PO DAILY supplement 05/29/18 cholecalciferol (vitamin D3) 25 mcg (1,000 unit) tablet 4,000 unit PO DAILY pure hyperglyceridemia 09/12/18 gemfibrozil 600 mg tablet 600 mg PO BID pure hyperglyceridemia #180 tabs 06/03/20 aspirin 81 mg chewable tablet 81 mg PO DAILY heart 02/13/23 acetaminophen 500 mg tablet 1,000 mg PO Q6H PRN pain 09/17/25 alprazolam 0.25 mg tablet 0.125 mg PO DAILY PRN anxiety 09/17/25 ascorbic acid 125 mg-collagen, hydrolyzed 740 mg capsule 1 cap PO DAILY supplement 09/17/25 calcium carbonate (Antacid (calcium carbonate)) See Rx Instructions PO .COMPLEX PRN dyspepsia 09/17/25 cyanocobalamin (vitamin B-12) 1,000 mcg capsule 1,000 mcg PO DAILY supplement 09/17/25 dextromethorphan-guaifenesin 30 mg-600 mg tablet extended hr (Mucinex DM) 1 tab PO DAILY PRN cough 09/17/25 loperamide 2 mg capsule (Anti-Diarrheal (loperamide)) 2 mg PO Q6H PRN loose stool 09/17/25 phenylephrine 0.25 %-mineral oil 14 %-petrolatm 74.9 % rectal ointment (Preparation H) 1 applic DE Q6H PRN PRN hemorrhoids 09/17/25 polyethylene glycol 3350 17 gram/dose oral powder (Miralax) 17 g PO DAILY PRN constipation 09/17/25 sertraline 25 mg tablet 25 mg PO QHS depression 09/17/25 vit C 250 mg-vit E 90 mg-zinc 40 mg-copper 1 [id number] capsule (PreserVision AREDS-2) 2 tab PO DAILY macular degeneration 09/17/25 Remove Patch 1 patch topical DAILY@2200 ##0 09/22/25 atenolol 50 mg tablet 50 mg PO DAILY #0 tabs 09/22/25 chlorthalidone 25 mg tablet 12.5 mg (1/2 x 25 mg) PO DAILY #0 tabs 09/22/25 lidocaine 5 % topical patch 1 patch topical DAILY 3 days #3 ea 09/22/25 sennosides 8.6 mg-docusate sodium 50 mg tablet (Stimulant Laxative Plus) 2 tab PO BID PRN PRN Constipation #0 tabs 09/22/25
[2025-09-22] MEDS: Lidocaine 5% Patch 1 PATCH TOPICAL (14:29)
--- NOTE | 2025-09-22 14:35 | CASEMGMT ---
Social Work SW completed a 7000 in [employer]. RAYMOND Tejada
[2025-09-22 14:36] VITALS: BP 128/71; PULSE 83; RESP 17; TEMP 36.6; O2SAT 96
--- NOTE | 2025-09-22 14:41 | CASEMGMT ---
Discharge Planning Discharge orders, signed med list, and transport time sent via [facility] to [facility]. Physicians will transport pt by cot at 3:30p. Nursing, SW, pt, and her HC POA (Brijesh) updated. Janet Abraham DC Planning Asst.
[2025-09-22 14:52] VITALS: BMI 38.6
[2025-09-24 04:07] LABS: Vitamin B1, Thiamine 96.5 nmol/L (66.5-200.0)
== END 2025-09-22 15:55 | disposition skilled nursing facility (03) | DRG 312 ==
LOC: ED 14:52 → PCU 15:10
PROVIDERS: Family Medicine; Admitting Provider Internal Medicine; Emergency Provider Emergency Medicine; PCP Internal Medicine; Visit Provider Internal Medicine
DX: R55 Syncope and collapse (principal); G93.89 Other specified disorders of brain; Z66 Do not resuscitate; G31.9 Degenerative disease of nervous system, unspecified; I10 Essential (primary) hypertension; E66.9 Obesity, unspecified; S09.90XA Unspecified injury of head, initial encounter; S40.011A Contusion of right shoulder, initial encounter; S16.1XXA Strain of muscle, fascia and tendon at neck level, initial encounter; I25.10 Atherosclerotic heart disease of native coronary artery without angina pectoris; E78.5 Hyperlipidemia, unspecified; M79.7 Fibromyalgia; S70.01XA Contusion of right hip, initial encounter; K21.9 Gastro-esophageal reflux disease without esophagitis; S10.93XA Contusion of unspecified part of neck, initial encounter; M51.16 Intervertebral disc disorders with radiculopathy, lumbar region; W01.10XA Fall on same level from slipping, tripping and stumbling with subsequent striking against unspecified object, initial encounter; R29.6 Repeated falls; Z68.34 Body mass index [BMI] 34.0-34.9, adult; Z79.82 Long term (current) use of aspirin; Z79.899 Other long term (current) drug therapy; Z96.641 Presence of right artificial hip joint; R26.9 Unspecified abnormalities of gait and mobility; Z90.49 Acquired absence of other specified parts of digestive tract; R42 Dizziness and giddiness; R41.3 Other amnesia; Y92.099 Unspecified place in other non-institutional residence as the place of occurrence of the external cause
CPT/HCPCS: 36415; 70450; 70496; 70498; 70551; 72125; 72157; 72158; 73030; 73502; 80048; 80053; 81001; 82607; 82746; 83735; 84100; 84425; 84443; 85025; 86703; 93005; 93306; 97116; 97163; 97166; 97530; 97535; 99285; A9575; Q9967; A4216

== ENCOUNTER → 2025-09-23 05:00 | Outpatient (REF) | payer OTHER, SELFPAY ==
--- OUTSIDE RECORDS SUMMARY | 2025-09-23 04:52 | XMS RPT_ITS | CCD ---
Author Organization [facility] CliniSyny Care Team Providers Care Electrical Test Engineer Name Role Phone Adeel Hayes MD Primary Care Provider Dr. Adeel Hayes Primary Care Provider PAXTON [place] Referring Provider [phone] [place] Other Provider Dr. Bar Henderson Attending Provider Adeel Hayes MD Primary Care Provider Adeel Hayes MD Primary Care Provider Otto ENGRAVER OPTICAL FRAMES.FILM EDITOR, Enriqueta Unavailable Alejandra ENGRAVER OPTICAL FRAMES.BUTTON MAKER AND INSTALLER, Destini Unavailable Alejandra ENGRAVER OPTICAL FRAMES.BUTTON MAKER AND INSTALLER, Destini Unavailable Alejandra ENGRAVER OPTICAL FRAMES.BUTTON MAKER AND INSTALLER, Destini Unavailable Otto ENGRAVER OPTICAL FRAMES.FILM EDITOR, Enriqueta Unavailable Dr. Adeel Hayes MD Primary Care Provider Adeel Hayes MD Attending Provider Unavailab VICTORIA Amaya Attending Unavailable VICTORIA ASHLEY Referring Unavailable ADEEL HAYES Primary Care Unavailable MALU TOWNSEND Referring Unavailable ADEEL HAYES Primary Care Unavailable MALU TOWNSEND Attending Unavailable ADEEL HAYES Referring Unavailable ADEEL HAYES Primary Care Unavailable DESTINI LEE Attending Unavailable ADEEL HAYES Primary Care Unavailable VICTORIA ASHLEY Attending Unavailable VICTORIA ASHLEY Referring Unavailable ADEEL HAYES Primary Care Unavailable [place] OLS, Adeel D Attending Unavailable [place], Adeel D Primary Care Unavailable [place] OLS, Adeel D Attending Unavailable [place], Adeel D Primary Care Unavailable [place], Adeel D Primary Care Unavailable [place] OLS, Adeel D Attending Unavailable [place], Adeel D Primary Care Unavailable [place] OLS, Adeel D Attending Unavailable [place] OLS, Adeel D Attending Unavailable Talampas, Adeel D Primary Care Unavailable Allergies Allergy Classification Reported Allergen(s) Allergy Type Date of Onset Reaction(s) Facility Angiotensin Converting Enzyme (SERGEY) Inhibitors (3 sources) Lisinopril Drug Allergy 06-02-[address] [facility] HMG-CoA Reductase Inhibitors (statins) (1 source) Simvastatin Drug Allergy 05-08-20 Other: See Comments [facility] Nitroimidazoles (antibiotic) (3 sources) metroNIDAZOLE Drug Allergy 06-02-[address] [facility] Penicillins (antibiotic) (6 sources) Amoxicillin Drug Allergy 06-02-20 05 [facility] (20 sources) Amoxicillin; Translations: [AMOXICILLIN] Drug Allergy 06-02-20 05 [facility] Work Phone: [phone] (20 sources) Lisinopril; Translations: [LISINOPRIL] Drug Allergy 06-02-20 05 [facility] Work Phone: (20 sources) metroNIDAZOLE; Translations: [METRONIDAZOLE HCL] Drug Allergy 06-02-[address] [facility] Work Phone: (10 sources) Penicillins; Translations: [PENICILLINS] Propensity to adverse reactions 06-02-20 05 [facility] Work Phone: (8 sources) Salicylic Acid; Translations: [SALICYLATES] Drug Allergy 06-02-[address] [facility] Work Phone: (20 sources) Penicillins Propensity to adverse reactions 06-02-20 05 [facility] Work Phone: (20 sources) Salicylate product Propensity to adverse reactions 06-02-[address] [facility] Work Phone: (3 sources) Ampicillin Drug Allergy 05-26-20 21 [facility] (3 sources) Penicillins Allergy to substance 05-26-20 [facility] (20 sources) Simvastatin; Translations: [SIMVASTATIN] Drug Allergy 05-08-20 19 Other: See Comments [facility] (10 sources) Penicillins Propensity to adverse reactions 06-02-[address] [facility] (1 source) Ampicillin Drug Allergy 02-14-20 [facility] (1 source) Lisinopril Drug Allergy 02-14-20 [facility] (1 source) Penicillins Drug allergy (disorder) 02-14-20 [facility] (1 source) Simvastatin Drug Allergy 02-14-20 [facility] Medications Current Medications Medication Drug Class(es) Dates Sig (Normalized) Sig (Original) acetaminophen 500 mg oral tablet (20 sources) Start: 11-25-2020 Acetaminophen 500 MG tablet Active 1000 mg PO EVERY 8 HOURS 100 0 November 25, 2020 1:00am Do not take more than 3000 mg Tylenol in a 24-hour period. Start: 11-25-2020 take 3000 mg by mout h every eight hours Acetaminophen Active 1000 MG PO EVERY 8 HOURS 100 November 25, 2020 1:00am Do not take more than 3000 mg Tylenol in a 24-hour period. Start: 05-20-2020 End: 11-25-2020 Acetaminophen 325 mg tablet Discontinued 325 mg PO NEEDED as needed for Pain 1-10 Or Fever May 20, 2020 12:00am November 25, 2020 10:27am Start: 06-02-2005 take 1 tablet by scotty th once as needed TYLENOL EXTRA STRENGTH 500 MG ORAL TAB Indications: Myalgia and myositis, unspecified Take two(2) tablets every four(4) to six(6) hours as needed. 0 06/02/2005 Active Comment on above: Take two(2) tablets every four(4) to six(6) hours as needed. Leticia Allergy (3 sources) Start: 05-17-2018 Leticia Allerg y Active 180 mg PO NEEDED as needed for allergy May 17, 2018 12:00am Start: 05-17-2018 Leticia Allerg y Active 180 MG PO NEEDED May 17, 2018 12:00am Start: 05-17-2018 Leticia Allerg y Active 180 MG PO NEEDED May 16, 2018 11:00pm ALPRAZolam 0.25 mg oral tablet (20 sources) Benzodiazepine Start: 10-05-2024 End: 11-04-2024 take [...] Aggregation Inhibitor, Nonsteroidal Anti-inflammatory Drug Start: 11-25-19 End: 02-14-20 take 1 tablet by mouth twice daily Aspirin 81 MG tablet,chewable Active 81 mg PO DAILY February 13, 2023 8:53pm Take 81 mg aspirin twice daily for 4 weeks postoperatively for DVT prophylaxis Start: 06-19-2018 End: 11-25-2020 take 1 tablet by mouth once daily Aspirin 81 mg tablet,chewable Discontinued 81 mg PO DAILY@0800 September 17, 2018 12:53pm November 25, 2020 10:27am take 1 tablet by scotty th once daily aspirin, enteric coated (ASPIRIN, ENTERIC COATED) 81 mg EC tablet Take 81 mg by mouth once daily. Active Comment on above: Take 81 mg by mouth once daily. atenolol 25 mg oral tablet (20 sources) beta-Adrenergic Lalito Start: 06-09-2025 take 0.5 tablet by mouth once daily atenolol (TENORMIN) 25 mg tablet Take 0.5 tablets by mouth once daily. 06/09/2025 Active Start: 04-15-2025 End: 06-09-2025 take 1 tablet by mouth once daily atenolol (TENORMIN) 25 mg tablet Take 1 tablet by mouth once daily. 90 tablet 3 04/15/2025 06/09/2025 Discontinued Start: 07-09-2024 End: 04-15-2025 take 1 tablet by mouth once daily atenolol (TENORMIN) 50 mg tablet Take 1 tablet by mouth once daily. 90 tablet 3 11/03/2024 04/15/2025 Discontinued Calcium Carbonate (20 sources) take 500 mg [...] D Start: 05-29-2018 Calcium Carbon ate-Vitamin D3 1 EACH capsule Active 1 NMA PO DAILY May 29, 2018 12:00am supplement Start: 05-29-2018 Calcium Carbon ate-Vitamin D3 Active [...] t wo(2) times daily. Take by mouth. cetirizine hydrochloride 10 mg oral tablet (1 source) Histamine-1 Receptor Antagonist Start: 01-10-20 End: 01-17-20 take 1 tablet by mouth once daily cetirizine (ZYRTEC) 10 mg tablet Take 1 tablet by mouth once daily for 7 days. 7 tablet 0 01/09/2022 01/16/2022 Active Comment on above: Take 1 tablet by scotty once daily for 7 days. cholecalciferol 0.025 mg oral tablet (20 sources) Vitamin D Start: 09-12-20 take 1 tablet by mouth once daily Cholecalciferol (Vitamin D3) 1,000 unit tablet Active 1000 U PO DAILY September 12, 2018 1:00am Start: 09-14-2009 take 2 capsules by m out once daily cholecalciferol(VITAMIN D 2,000 UNIT CAP ) Take 4,000 Units by mouth once daily. 0 09/14/2009 Active Start: 09-14-2009 [facility] 1 capsule [facility] once cholecalciferol(VITAMIN D 2,000 UNIT CAP ) Take by mouth. 0 09/14/2009 Active Start: 09-14-2009 cholecalcifero l(VITAMIN D 2,000 UNIT CAP) Take one(1) tablet daily. 0 09/14/2009 Active Comment on above: Take one(1) tablet d aily. Take by mouth. clindamycin 300 mg oral capsule (9 sources) Lincosamide Antibacterial take 2 capsules by [...] End: 03-12-2024 take 1 capsule by mouth at bedtime Doxepin 25 mg capsule Active 25 mg PO AT BEDTIME May 20, 2020 12:00am Start: 05-17-2018 End: 05-20-2020 take 3 capsules by mouth at bedtime Doxepin 10 MG capsule Discontinued 30 mg PO AT BEDTIME May 17, 2018 12:00am May 20, 2020 11:54am fibromyalgia Start: 05-17-2018 End: 05-20-2020 take 30 mg by mouth at bedtime Doxepin Discontinued 30 MG PO AT BEDTIME May 17, 2018 12:00am May 20, 2020 11:54am Comment on above: Take 1 capsule by [facility] daily at bed[facility]. doxycycline monohydrate 100 mg oral tablet (3 sources) Tetracycline-class Drug Start: 09-28-2022 End: 10-03-2022 take 1 tablet by mouth twice daily doxycycline monohydrate 100 mg tablet Indications: Skin rash Take 1 tablet by mouth twice daily for 5 days. 10 tablet 0 09/28/2022 10/03/2022 Active Comment on above: Take 1 tablet by scotty twice daily for 5 days. eszopiclone 1 [...] take 1 tablet by mouth at bedtime Eszopiclone 3 MG tab let Active 1.5 mg PO AT BEDTIME May 17, 2018 12:00am Comment on above: Take 1 tablet by [...] Proliferator Receptor alpha Agonist Start: 8 End: take 1 tablet by mouth twice daily [...] needed. loperamide hydrochloride 2 mg oral tablet (9 sources) Opioid Agonist take 1 tablet by mouth once as needed loperamide HCl (IMODIUM A-D) 2 mg tab Take 2 mg by mouth as needed. Active Hpvnzjet-Yva-Zqdh-Fa-Miri tein (2 sources) Start: 05-29-2018 Vnetgfsv-Zjh-Rkfw-F a-Lutein Active 1 EACH PO DAILY May 29, 2018 12:00am Start: 05-29-2018 Eraixdmg-Nrl-S lff-Ek-Qyeizj Active 1 EACH PO DAILY May 28, 2018 11:00pm Mtvndtst-Mmk-Xtga-Fa-Vit K-Lut 1 EACH tablet (1 source) Start: 05-29-2018 take 1 tablet by mouth once daily Omimhaav-Wrh-Bxry-Fa-Vit K-Lut 1 EACH tablet Active 1 NMA PO DAILY May 29, 2018 12:00am supplement nystatin 100 unt/mg topical powder (20 sources) Polyene Antifungal Start: 06-16-2025 nystatin (MYCOSTATIN) powder Indications: Candidal intertrigo Apply 1 application to affected area four times a day as needed (yeast infection). 60 g 2 06/16/2025 Active Start: 06-09-2025 End: 06-16-2025 nystatin (MYCOSTATIN) cream Apply a thin layer to the affected area on the groin twice a day. Use until rash is gone. 30 g 06/09/2025 06/16/2025 Discontinued Start: 03-10-2023 End: 06-23-2024 nystatin (MYCOSTATIN) powder [...] four times daily as needed (yeast infection). Oat Bran (3 sources) Start: 05-29-2018 take 1700 mg by mouth once daily Oat Bran Active 1700 mg PO DAILY May 29, 2018 12:00am supplement Start: 05-29-2018 take 1700 mg by mouth [...] Comment on above: Take 1 capsule by [facility] once daily. Phenylephrine (9 sources) alpha-1 Adrenergic Agonist phenylephrine HCl (PREPARATION H, PE, RECTAL) by RECTAL route. Active polyethylene glycol 3350 60716 mg powder for oral solution (20 sources) Osmotic Laxative Start: 12-01-2020 polyethylene glycol 3350 (MIRALAX) 17 gram/dose powder Take 17 g by mouth once daily. 1 Bottle 3 12/01/2020 Active Comment on above: Take 17 g by mouth o nce daily. polyethylene glycol 3350 145368 mg / potassium chloride 2970 mg / sodium bicarbonate 6740 mg / sodium chloride 5860 mg / sodium sulfate 18640 mg powder for oral solution (1 source) Osmotic Laxative Start: 02-13-2023 Peg 3350-Electrolytes (Gavilyte-G) 236-22.74-6.74 -5.86 gram recon soln Active 240 mL PO EVERY 10 MINUTES NEEDED 4000 0 February 13, 2023 12:00am until fecal effluent is clear Senna Leaves (1 source) Start: 02-13-2023 Senna 374 mg Tablet Active mg PO February 13, 2023 12:00am sertraline 25 mg oral tablet (20 sources) Serotonin Reuptake Inhibitor Start: 09-22-2024 End: 04-15-2025 take 1 tablet by mouth once daily sertraline (ZOLOFT) 25 mg tablet Take 1 tablet by mouth once daily. 90 tablet 3 04/15/2025 Active Start: 06-23-2024 End: 07-14-2024 take 1 [...] Discontinued (Discontinued by Patient) Vit A,C And I-Xclabe-Vaaazuvh (2 sources) Start: 05-17-2018 take 2 tablets by mouth once daily Vit A,C And U-Njdzoz-Isqbiaxa Active 2 TABLET PO DAILY May 17, 2018 12:00am Start: 05-17-2018 take 2 tablets by [facility] once daily Vit A,C And Q-Gljhdw-Lyszunuh Active 2 TABLET PO DAILY May 16, 2018 11:00pm Vit A,C And K-Jbgrya-Wzstixpu 1 EACH tablet (1 source) Start: 05-17-2018 take 1 tablet by mouth once daily Vit A,C And J-Esmvxv-Pzjtuktt 1 EACH tablet Active 2 {tbl} PO DAILY May 17, 2018 12:00am eye health vit C/E/Zn/coppr/lutein/anastacio jeremias (PRESERVISION AREDS-2 ORAL) (20 sources) take 1 tablet by mouth once daily vit C/E/Zn/coppr/lutein/ze axan (PRESERVISION AREDS-2 ORAL) Take 1 tablet by mouth once daily. Active vitamin b12 1 mg oral tablet (20 sources) Vitamin B12 take 1 tablet by mouth once daily cyanocobalamin (VITAMIN B-12) 1,000 mcg tab Take 1,000 mcg by mouth once daily. Active Comment on above: Take 1,000 mcg by [facility] once daily. vitamin e 180 mg oral capsule (3 sources) Start: 05-29-2018 take 1 capsule by mouth once daily Vitamin E 400 UNIT capsule Active 400 U PO DAILY May 29, 2018 12:00am supplement VITAMIN E ACETATE ORAL (20 sources) take [...] / oxyCODONE hydrochloride 5 mg oral tablet (3 sources) Opioid Agonist Start: 07-12-2018 End: 07-17-2018 Oxycodone-Acetamino phen 1 TABLET tablet Discontinued 1 - 2 {tbl} PO EVERY 4 HOURS NEEDED as needed for Pain 06 03July 12, 2018 12:00am July 16, 2018 12:00am July 17, 2018 12:08am Start: 07-12-2018 End: 07-17-2018 take 1 tablet by mouth every four hours as needed Oxycodone-Acetaminophen Discontinued 1 - 2 TABLET PO EVERY 4 HOURS NEEDED 06 03July 12, 2018 12:00am July 17, 2018 12:08am Ascorbic Acid (20 sources) Vitamin C End: 02-15-2023 ascorbic acid (VITAMIN C ORA L) Take by mouth. 02/15/2023 Discontinued ascorbic acid (V ITAMIN C ORAL) Take by mouth. 0 Active Comment on above: Take by mouth. ascorbic acid 113 mg / beta carotene 7160 mg / cuprous oxide 0.4 mg / dl-alpha tocopheryl acetate 100 unt / zinc oxide 17.4 mg oral tablet (20 sources) Vitamin C Start: 01-17-2012 End: 02-15-2023 vit A,C,P-Pxiz-Ofteut 7,160-113-100 tmqf-sb-eorb ORAL Tab Take by mouth. As directed. 0 01/17/2012 02/15/2023 Discontinued Comment on above: Take by mouth. As di rected. atenolol 100 mg / chlorthalidone 25 mg oral tablet (20 sources) Thiazide-like Diuretic, beta-Adrenergic Lalito Start: 05-17-2018 End: 07-09-2024 Atenolol-Chlorthalidone 100-25 mg per tablet [...] on above: Take 1 capsule by mo mnh three times daily as needed for cough. Bran (20 sources) Start: 6 End: 3 OAT BRAN 500 MG TAB 2 tabs in am 0 10/18/2005 02/15/2023 Discontinued Start: 10-18-2005 OAT BRAN 500 M G TAB 2 tabs in am 0 10/18/2005 Active Comment on above: 2 tabs in am BEGDTFX-YDAPMVELG-D INC ORAL (20 sources) End: 04-15-2025 take 1 tablet by mouth once daily UVBCAJI-UXJEAZJJO-WFCB ORAL Take 1 tablet by mouth once daily. 04/15/2025 Discontinued (Other) take 1 tablet by mouth once marsha y KTXORUT-QYUPZZTSH-WKCE ORAL Take 1 tablet by mouth once daily. Active take 1 tablet by mouth once marsha y NSABNDI-HYNSZYDJF-VQLZ ORAL Take 1 tablet by mouth once daily. 0 Active Comment on above: Take 1 tablet by scotty once daily. docusate sodium 200 mg oral capsule (20 sources) Start: 05-17-2018 End: 08-20-2020 take 200 mg by mouth at bedtime Docusate Sodium Discontinued 200 mg PO AT BEDTIME May 17, 2018 12:00am [...] 01/09/2022 Discontinued take 3 tablets by mo [facility] once daily as needed fexofenadine (LETICIA) [...] twice daily. meloxicam 7.5 mg oral tablet (6 sources) Nonsteroidal Anti-inflammatory Drug Start: 08-20-2020 End: 05-26-2021 Meloxicam 7.5 mg tablet Discontinued 7.5 mg PO NEEDED as needed for Pain 1-10 Or Fever August 20, 2020 1:00am May 26, 2021 2:38pm Start: 11-26-2019 End: 05-20-2020 take 1 tablet by mouth once daily Meloxicam (Mobic) 7.5 mg tablet Discontinued 7.5 mg PO DAILY 30 0 November 26, 2019 1:00am May 20, 2020 [...] above: Take one(1) tablet d aily. nystatin 1 billion unit powd (13 sources) Start: 09-29-2022 End: 03-10-2023 nystatin 1 billion unit powd 1 application three times daily as needed. 1 Each 5 09/29/2022 03/10/2023 Discontinued Start: 09-29-2022 nystatin 1 gricelda lion unit powd 1 application three times daily as needed. 1 Each 5 09/29/2022 Active Comment on above: 1 application three times daily as needed. Shipman-3 Fatty Acids-Fish Oil (2 sources) Start: 07-05-2018 End: 11-25-2020 Shipman-3 Fatty Acids-Fish Oil Discontinued 1 EACH PO DAILY July 05, 2018 12:00am November 25, 2020 10:27am Start: 07-05-2018 End: 11-25-2020 Shipman-3 Fatty Acids-Fish Oil Discontinued 1 EACH PO DAILY July 04, 2018 11:00pm November 25, 2020 9:27am Shipman-3 Fatty Acids-Fish Oil 1 EACH capsule (1 source) Start: 07-05-2018 End: 11-25-2020 Shipman-3 Fatty Acids-Fish Oil 1 EACH capsule Discontinued 1 NMA PO DAILY July 05, 2018 12:00am November 25, 2020 10:27am oxyCODONE hydrochloride 5 mg oral tablet (3 sources) Opioid Agonist Start: 11-25-2020 End: 11-30-2020 take 5-10 mg by mouth every four hours as needed for pain Oxycodone 5 MG tablet Discontinued 5 - 10 mg PO EVERY 4 HOURS NEEDED as needed for Pain Score 4-10 60 5 0 November 25, 2020 November 29, 2020 1:00am November 30, 2020 1:03am Presence of right artificial hip joint microencapsulated potassium chloride 10 meq extended release [...] mEq by mouth once daily. 05/17/2018 Active Start: 05-17-2018 Potassium Chlo ride 10 MEQ capsule, extended release Active 1 {tbl} PO DAILY May 17, 2018 12:00am Comment on above: Take 1 tablet by scotty once daily. Take 1 tablet by scotty twice daily. Take 1 tablet by scotty th two times a day. simvastatin 20 mg oral tablet (12 sources) HMG-CoA Reductase Inhibitor Start: 8 End: 8 take 1 tablet by mouth at bedtime Simvastatin 20 mg tablet Discontinued 20 mg PO AT BEDTIME 06 09July 19, 2018 10:37am August 08, 2018 2:20pm traZODone hydrochloride 50 mg oral tablet (5 sources) Serotonin Reuptake Inhibitor Start: End: 2 take 1-2 tablets by mouth once daily at bedtime traZODone (DESYREL) 50 mg tablet Take 1-2 tablets by mouth daily at bedtime. 90 tablet 0 09/06/2021 03/24/2022 Discontinued (Other) Comment on above: Take 1-2 tablets by mouth daily at bedtime. vitamin b complex capsule (20 sources) End: 3 take 1 capsule by mouth once daily vitamin b complex capsule Take 1 capsule by mouth once daily. 02/15/2023 Discontinued take 1 capsule by mouth once puneet ly vitamin b complex capsule Take 1 capsule by mouth once daily. 0 Active Comment on above: Take 1 capsule by [facility] once daily. vitamin E mixed/tocotrienol (VITAMIN E [...] foot] Onset: 5 02-10-2025 Chronic Adjustment disorders (5 sources) Mixed anxiety and depressive disorder; Translations: [Adjustment disorder with mixed anxiety and depressed mood] Onset: 5 02-12-2024 Chronic Anxiety disorders (20 sources) Anxiety state; Translations: [Generalized anxiety disorder] Onset: 6 02-04-2018 Chronic Biliary tract disease (9 sources) Gallbladder calculus with acute cholecystitis and no obstruction; Translations: [Calculus of gallbladder with acute and chronic cholecystitis without obstruction] 05-26-2021 Episodic Blindness and vision defects (1 source) Visual impairment; Translations: [Unspecified visual loss] 07-09-2024 Chronic Conditions associated with dizziness or vertigo (20 sources) Dizziness; Translations: [Dizziness and giddiness] Onset: 2 10-23-2021 Episodic Coronary atherosclerosis and other heart disease (3 sources) Non-obstructive atherosclerosis of coronary artery; Translations: [Atherosclerotic heart disease of [place] coronary artery without angina pectoris] 05-26-2021 Chronic Deficiency and other anemia (1 source) Anemia; Translations: [Anemia, unspecified] 06-09-2025 Episodic Deficiency and other anemia (1 source) Anemia, unspecified; Translations: [Anemia, unspecified type] Onset: Episodic Disorders of lipid metabolism (20 sources) Hypertriglyceridemia; Translations: [Pure hyperglyceridemia] Onset: 2 10-23-2021 Chronic Esophageal disorders (20 sources) Gastroesophageal reflux disease; Translations: [Gastro-esophageal reflux disease without esophagitis] Onset: 5 06-02-2005 Chronic Essential hypertension (20 sources) Essential hypertension; Translations: [Essential (primary) hypertension] Onset: 5 08-03-2015 Chronic Fluid and electrolyte disorders (6 sources) Hypokalemia; Translations: [Hypokalemia] Episodic Fracture of upper limb (1 source) Closed fracture of right upper limb; Translations: [Unspecified fracture of shaft of humerus, right arm, sequela] Episodic Genitourinary symptoms and ill-defined conditions (3 sources) Nocturia; Translations: [Nocturia] Onset: 5 07-09-2024 Episodic Hemorrhoids (2 sources) Unspecified hemorrhoids; Translations: [Unspecified hemorrhoids] Onset: Episodic Immunizations and screening for infectious disease (10 sources) Patient encounter status; Translations: [Encounter for immunization] Episodic Inflammation; infection of eye (except that caused by tuberculosis or sexually transmitteddisease) (1 source) Conjunctivitis; Translations: [Other mucopurulent conjunctivitis, bilateral] Episodic Malaise and fatigue (2 sources) Malaise; Translations: [Other malaise] Onset: 5 06-09-2025 Episodic Mood disorders (20 sources) Reactive depression (situational); Translations: [Major depressive disorder, single episode, unspecified] 03-18-2021 Chronic Nutritional deficiencies (4 sources) Vitamin D deficiency; Translations: [Vitamin D deficiency, unspecified] Chronic Nutritional deficiencies (2 sources) Vitamin deficiency, unspecified; Translations: [Vitamin deficiency, unspecified] Onset: 5 Episodic Osteoarthritis (20 sources) Osteoarthritis; Translations: [Osteoarthrosis, unspecified whether generalized or localized, lower leg] Onset: 8 09-24-2008 Chronic Other circulatory disease (1 source) Low blood pressure; Translations: [Hypotension, unspecified] 06-09-2025 Episodic Other circulatory disease (1 source) Hypotension, unspecified; Translations: [Hypotension, unspecified hypotension type] Onset: 5 Episodic Other connective tissue disease (20 sources) History [...] involving the musculoskeletal system] 10-30-2024 Episodic Other ear and sense organ disorders (1 source) Hearing difficulty; Translations: [Unspecified hearing loss, bilateral] Chronic Other ear and sense organ disorders (1 source) Bilateral hearing loss; Translations: [Unspecified hearing loss, bilateral] 10-21-2023 Chronic Other gastrointestinal disorders (1 source) Diarrhea; Translations: [Diarrhea, unspecified] 06-23-2024 Episodic Other gastrointestinal disorders (2 sources) Diarrhea, unspecified; Translations: [Diarrhea, unspecified] Onset: 5 Episodic Other inflammatory condition of skin (1 source) Itching ; Translations: [Pruritus, unspecified] Episodic Other inflammatory condition of skin (1 source) Intertrigo; Translations: [Erythema intertrigo] 06-09-2025 Episodic Other inflammatory condition of skin (1 source) Erythema intertrigo; Translations: [Intertrigo] Onset: Episodic Other nervous system disorders (20 sources) [...] to excess calories] Chronic Other skin disorders (2 sources) Eruption; Translations: [Rash and other nonspecific skin eruption] Episodic Other skin disorders (2 sources) Nail deformity; Translations: [Other nail disorders] Episodic Other skin disorders (1 source) Foot callus; Translations: [Corns and callosities] 02-10-2025 Episodic Other skin disorders (1 source) Xerosis cutis; Translations: [Xerosis cutis] Onset: Episodic Other skin disorders (2 sources) Other hypertrophic disorders of the skin; Translations: [Other hypertrophic disorders of the skin] Onset: Episodic Residual codes; unclassified (3 sources) Postmenopausal state; Translations: [Asymptomatic menopausal state] Episodic Residual codes; unclassified (2 sources) Pain; Translations: [Pain, unspecified] Episodic Residual codes; unclassified (1 source) Disturbance in sleep behavior; Translations: [Sleep disorder, unspecified] 06-23-2024 Episodic Residual codes; unclassified (2 sources) Menopause present; Translations: [Asymptomatic menopausal state] 06-09-2025 Episodic Residual codes; unclassified (1 source) Memory impairment; Translations: [Other amnesia] 06-09-2025 Episodic Residual codes; unclassified (1 source) Asymptomatic menopausal state; Translations: [Asymptomatic menopause] Onset: 5 Episodic Residual codes; unclassified (1 source) Other amnesia; Translations: [Memory impairment] Onset: 5 Episodic Retinal detachments; defects; vascular occlusion; and retinopathy (20 sources) Age related macular degeneration; Translations: [Unspecified macular degeneration] Onset: 5 07-28-2017 Chronic Skin and subcutaneous tissue infections (1 source) Cellulitis of left upper limb; Translations: [Cellulitis of left upper arm] 02-01-2023 Episodic Varicose veins of lower extremity (1 source) Varicose veins of bilateral lower limbs; Translations: [Asymptomatic varicose veins of bilateral lower extremities] Episodic Past or Other Problems Problem Classification Problem Date Documented Date Episodic/Chronic Diabetes mellitus without complication (20 sources) Impaired fasting glycemia; Translations: [Impaired fasting glucose] Onset: 03-22-2010 03-22-2010 Episodic Mycoses (10 sources) Candidal intertrigo; Translations: [Candidiasis of skin and nail] Onset: 02-10-2025 Episodic Other and unspecified benign neoplasm (20 [...] [Pain in toe of left foot] Onset: 02-10-2025 Episodic Other connective tissue disease (1 source) Pain in right toe(s); Translations: [Pain in toe of right foot] Onset: 02-10-2025 Episodic Other non-traumatic joint disorders (20 sources) [...] of the skin] Onset: 01-10-2013 01-10-2013 Episodic Other skin disorders (1 source) Corns and callosities; Translations: [Callus of foot] Onset: 02-10-2025 Episodic Residual codes; unclassified (20 sources) Persistent insomnia; Translations: [Insomnia, unspecified] Onset: 06-02-2005 Episodic Residual codes; unclassified (3 sources) History of cardiac catheterization; Translations: [Other specified postprocedural states] Onset: 06-19-2018 05-26-2021 Episodic Results Test Name Value Interpretation Reference Range Facility [facility] 06[facility]23[facility]2025 [facility] (INTMWS) DODIE LI ([id number]) 1945 F Date Time Provider Department 06/23/25 ADEEL HAYES INTWS During your visit today, we recorded the following information about you: Meredith Varela RN 06/23/2025 4:26 PM Signed Patient saw Malu Townsend [facility] on 06/09/25. Pt was having episodic lightheadedness; especially in early to mid-afternoon; likely associated with peak effects of her beta-lalito therapy. Pt's atenolol was decreased to 12.5 mg daily in the morning to reduce lightheadedness.Pt was instructed to follow up in one month for blood pressure recheck and possible discontinuation of atenolol if symptoms persist or hypotension remains pronounced. Follow Up appt was made for 07/07. Pt calling today to state she may have transportation issue for the 07/07 appt. Pt resides at [facility]. Pt states she will have nurse there take her blood pressures and pt to call in at end of this month with BP readings for Malu, instead of coming in for appt for BP reading. Pt states she is still having the episodic mid-afternoon lightheadedness, even today. Reports she used to be an active person prior to being at facility and now is sedentary. Discussed safe active exercises for pt during call. Please call patient back if Malu does not agree with this plan. Otherwise, pt will be calling with BP reading in future. MARGOT Veloz Naz M, APRN.MERARI 06/29/2025 7:11 AM Signed Noted and agree INES Lewis M Robin, RN 07/06/2025 12:07 PM Addendum Pt phoned to reports the atenolol 12.5 mg daily is still causing her to feel lightheaded. Asking if she can refuse the medication. Advised patient it is difficult to answer that question without knowing her BP readings. Pt states she will ask the nurse where she lives to call pcp office today to give the list of BP readings to triage nurse. Pt cancelled her appt tomorrow with Malu stating she has to pay $55 for [facility] to bring her and she cannot afford that. Ariana Hernandez LPN 07/06/2025 4:02 PM Signed Nurse from [facility] is faxing list of patient blood pressure readings to the office to be reviewed. Carla Almonte RN 07/07/2025 12:14 PM Signed Patient calls back to see the status of this request. Patients that this morning blood pressure was 122/56. Patient reports that she did not take atenolol last night. MARGOT Mckeon Beth, LPN 07/20/2025 3:59 PM Signed Patient calling said the nurse at [facility] has never gotten anything back from Dr Hayes concerning her blood pressure readings that was sent (faxed) to the office at the end of June. Patient asking if PCP is wanting any changes done with her blood pressure medication? Patient said she still feeling loupy in the afternoon at times. Please advise Allergies As of Date: 06/23/2025 Noted Allergy Reaction SIMVASTATIN 05/08/2019 14 - Other: See Comments Comments: Flu like sx, body aches AMOXICILLIN 06/02/2005 2 - Rash ASA (SALICYLATES) 06/02/2005 Comments: if not coated FLAGYL (METRONIDAZOLE HCL) 06/02/2005 LISINOPRIL 06/02/2005 PENICILLINS 06/02/2005 2 - Rash Date Reviewed: 06/09/2025 Reviewed by: Malu Townsend APRN.[employer]TON [employer]ST[employer]ER - Fully Assessed Reason for Visit: Patient Update [1234] Prescriptions as of 07/20/2025 - nystatin (MYCOSTATIN) powder Apply 1 application to affected area four times a day as needed (yeast infection). - atenolol (TENORMIN) 25 mg tablet Take 0.5 tablets by mouth once daily. - sertraline (ZOLOFT) 25 mg tablet Take 1 tablet by mouth once daily. - potassium chloride SR (MICRO-K) 10 mEq [...] 2 mg by mouth as needed. - doxepin capsule 10 mg Take 1 capsule by mouth daily at bedtime. - vit C/E/Zn/coppr/lutein/ze axan (PRESERVISION AREDS-2 ORAL) Take 1 tablet by [...] cap Take 1 capsule by mouth once da (more content not included)... [facility] (INTMWS[facility] DODIE LI ([id number]) 1945 F Date Time Provider Department 06/16/25 ADEEL HAYES INTMWS During your visit today, we recorded the following information about you: Meredith Varela RN 06/16/2025 3:10 PM Signed Patient requesting to change her nystatin cream to a powder form. Please send script to her pharmacy. Pended for review. Please call Dodie with an update. Thank you. Ariana Hernandez LPN 06/19/2025 2:59 PM Signed rx was already for powder sent 06/16/2025 Allergies As of Date: 06/16/2025 Noted Allergy Reaction SIMVASTATIN 05/08/2019 14 - Other: See Comments Comments: Flu like sx, body aches AMOXICILLIN 06/02/2005 2 - Rash ASA (SALICYLATES) 06/02/2005 Comments: if not coated FLAGYL (METRONIDAZOLE HCL) 06/02/2005 LISINOPRIL 06/02/2005 PENICILLINS 06/02/2005 2 - Rash Date Reviewed: 06/09/2025 Reviewed by: Malu Townsend, [employer]TON [employer]KER AND INSTALLER - Fully Assessed Reason for Visit: Medication Request [138] Primary Visit Diagnosis:Rash [R21] Other Visit Diagnosis:Candidal intertrigo [B37.2] Order(s):nystatin (MYCOSTATIN) powderApply 1 application to affected area four times a day as needed (yeast infection).Disp: 60 gRfl: 2 Prescriptions as of 06/19/2025 - nystatin (MYCOSTATIN) powder Apply 1 application to affected area four times a day as needed (yeast infection). - atenolol (TENORMIN) 25 mg tablet Take 0.5 tablets by mouth once daily. - sertraline (ZOLOFT) 25 mg tablet Take 1 tablet by mouth once daily. - potassium chloride SR (MICRO-K) 10 mEq [...] 2 mg by mouth as needed. - doxepin capsule 10 mg Take 1 capsule by mouth daily at bedtime. - vit C/E/Zn/coppr/lutein/ze axan (PRESERVISION AREDS-2 ORAL) Take 1 tablet by [...] 1,000 mcg by mouth once daily. - guaifenesin/dextrometh orphan (MUCINEX DM ORAL) Take 1 tablet by mouth once daily as needed. - fexofenadine (LETICIA) 60 mg tablet Take 180 mg by mouth once daily as needed. - polyethylene glycol 3350 (MIRALAX) 17 gram/dose powder Take 17 g by mouth once daily. - aspirin, enteric coated (ASPIRIN, ENTERIC COATED) 81 mg EC tablet Take 81 mg by mouth once daily. - cholecalciferol(VITAMI N D 2,000 UNIT CAP) Take 4,000 Units [...] takes. 09/09/2024 Problem List As Of Date 06/16/2025 Noted Resolved Fibromyalgia [M79.7] 06/02/2005 PERSISTENT INSOMNIA [G47.00] 06/02/2005 Essential hypertension [I10] 06/02/2005 ESOPHAGEAL REFLUX [K21.9] 06/02/2005 Reactive depression [F32.9] Macular degeneration (senile) of retina [H35.30] CARPAL TUNNEL SYNDROME [G56.00] Obesity [E66.9] Anxiety state [F41.1] 05/11/2006 OSTEOARTHROS NOS-L/LEG [[id number]] 09/24/2008 Impaired Fasting Glucose [R73.01] 03/22/2010 Xerosis cutis [L85.3] 01/10/2013 Cracked skin [R23.4] 01/10/2013 Neurofibroma of back [D36.17] 01/10/2013 Intradermal nevus [D23.9] 01/10/2013 Acrochordon [L91.8] 01/10/2013 Pain in right hip [M25.551] 03/06/2019 Dizziness [R42] 10/23/2021 Status post right hip replacement [Z96.641] 10/23/2021 Hypertriglyceridemia [E78.1] 10/23/2021 Prescriptions ordered this encounter Disp Refills Start End NYSTATIN 100,000 UNIT/GRAM TOPICAL P* 60 g 2 06/16/2025 Route: TOP Sig: Apply 1 application to affected area four times a day as needed (yeast infection). Medications Discontinued During This Encounter Prescriptions - nystatin (MYCOSTATIN) cream (Discontinued) Apply a thin layer to the affected area on the groin twice a day. Use until rash is g (more content not included)... Normal [facility] 06-12-2025 [facility] (INT[facility] DODIE LI ([id number]) 1945 F Date Time Provider Department 06/12/25 ADEEL HAYES During your visit today, we recorded the following information about you: Leila Verduzco LPN 06/12/2025 2:32 PM Signed Please let the patient know her lab results were all within an acceptable range. Fatigue and other symptoms likely due to low blood pressure as discussed during the office visit Malu Townsend APRN.Leila Meek LPN 06/12/2025 2:34 PM Signed Patient notified of results and provider's instructions. Patient verbalizes understanding. Leila Verduzco LPN Allergies As of Date: 06/12/2025 Noted Allergy Reaction SIMVASTATIN 05/08/2019 14 - Other: See Comments Comments: Flu like sx, body aches AMOXICILLIN 06/02/2005 2 - Rash ASA (SALICYLATES) 06/02/2005 Comments: if not coated FLAGYL (METRONIDAZOLE HCL) 06/02/2005 LISINOPRIL 06/02/2005 PENICILLINS 06/02/2005 2 - Rash Date Reviewed: 06/09/2025 Reviewed by: Malu Townsend APRN.[employer]KER AND INSTALLER - Fully Assessed Reason for Visit: Results [95] Prescriptions as of 06/12/2025 - atenolol (TENORMIN) 25 mg tablet Take 0.5 tablets by mouth once daily. - nystatin (MYCOSTATIN) cream Apply a thin layer to the affected area on the groin twice a day. Use until rash is gone. - sertraline (ZOLOFT) 25 mg tablet Take 1 tablet by mouth once daily. - potassium chloride SR (MICRO-K) 10 mEq [...] 2 mg by mouth as needed. - doxepin capsule 10 mg Take 1 capsule by mouth daily at bedtime. - vit C/E/Zn/coppr/lutein/ze axan (PRESERVISION AREDS-2 ORAL) Take 1 tablet by [...] 1,000 mcg by mouth once daily. - guaifenesin/dextrometh orphan (MUCINEX DM ORAL) Take 1 tablet by mouth once daily as needed. - fexofenadine (LETICIA) 60 mg tablet Take 180 mg by mouth once daily as needed. - polyethylene glycol 3350 (MIRALAX) 17 gram/dose powder Take 17 g by mouth once daily. - aspirin, enteric coated (ASPIRIN, ENTERIC COATED) 81 mg EC tablet Take 81 mg by mouth once daily. - cholecalciferol(VITAMI N D 2,000 UNIT CAP) Take 4,000 Units [...] takes. 09/09/2024 Problem List As Of Date 06/12/2025 Noted Resolved Fibromyalgia [M79.7] 06/02/2005 PERSISTENT INSOMNIA [G47.00] 06/02/2005 Essential hypertension [I10] 06/02/2005 ESOPHAGEAL REFLUX [K21.9] 06/02/2005 Reactive depression [F32.9] Macular degeneration (senile) of retina [H35.30] CARPAL TUNNEL SYNDROME [G56.00] Obesity [E66.9] Anxiety state [F41.1] 05/11/2006 OSTEOARTHROS NOS-L/LEG [[id number]] 09/24/2008 Impaired Fasting Glucose [R73.01] 03/22/2010 Xerosis cutis [L85.3] 01/10/2013 Cracked skin [R23.4] 01/10/2013 Neurofibroma of back [D36.17] 01/10/2013 Intradermal nevus [D23.9] 01/10/2013 Acrochordon [L91.8] 01/10/2013 Pain in right hip [M25.551] 03/06/2019 Dizziness [R42] 10/23/2021 Status post right hip replacement [Z96.641] 10/23/2021 Hypertriglyceridemia [E78.1] 10/23/2021 Encounter Status:Closed by LEILA VERDUZCO on 06/12/25 Normal [facility] Basic metabolic 2000 panelon 06-09-2025 Anion gap [Moles/Vol] 12 mmol/L 8 - 15 mmol/L [facility] Calcium [Mass/Vol] 9.2 mg/dL 8.5 - 10. 2 mg/dL [facility] Chloride [Moles/Vol] 104 mmol/L 98 - 10 7 mmol/L [facility] CO2 [Moles/Vol] 23 mmol/L 22 - 30 mmol/L [facility] Creatinine [Mass/Vol] 0.83 mg/dL 0.58 - 0.96 mg/dL [facility] GFR/1.73 sq M.predicted among non-blacks MDRD (S/P/Bld) [Vol rate/Area] 72 mL/min/{1.73_m2} - PINF [facility] Comment on above: Estimated Glomerular Filtration Rate (eGFR) is calculated using the 2021 CKD-EPI creatinine equation. This equation utilizes serum creatinine, sex, and age as parameters. The creatinine assay has traceable calibration to isotope dilution-mass spectrometry. Refer to KDIGO guidelines for clinical interpretation. In patients with unstable renal function, e.g. those with acute kidney injury, the eGFR may not accurately reflect actual GFR. Glucose [Mass/Vol] 96 mg/dL 74 - 99 mg/dL [facility] Comment on above: The [place] Diabete s Association (ADA) provides guidance for cutoff values for fasting glucose and random glucose. The ADA defines fasting as no caloric intake for at least 8 hours. Fasting plasma glucose results between 100 to 125 [...] Standards of Medical Care in Diabetes 2016, [place] [employer] Association. Diabetes Care. 2016.39(Suppl 1). Interpretation and review of laboratory results Abnormal [facility] Potassium [Moles/Vol] 4.3 mmol/L 3.7 - 5.1 mmol/L [facility] Sodium [Moles/Vol] 139 mmol/L 136 - 144 mmol/L [facility] Urea nitrogen [Mass/Vol] 25 mg/dL High 7 - 21 mg/dL [facility] Anion gap [Moles/Vol] 12 mmol/L Normal 8-15 [facility] Comment on above: Order Comment: Marcus appiah Type: BLOOD SPECIMENOrdering Facility: [facility] Address: [address] [place] [address] Performed By: #### 2 4321-2, 2276-4, 81953-4 ####[facility] LABCLIA [id number] [place] [address] [place] Calcium [Mass/Vol] 9.2 mg/dL Normal 8.5-10.2 [facility] Comment on above: Order Comment: Marcus appiah Type: BLOOD SPECIMENOrdering Facility: [facility] Address: [address] [place] [address] Performed By: #### 2 4321-2, 2276-4, 11528-8 ####[facility] LABIA [id number] [address] [address] [place] Chloride [Moles/Vol] 104 mmol/L Normal 98-107 [facility] Comment on above: Order Comment: Speci men Type: BLOOD SPECIMENOrdering Facility: [facility] Address: [address] [place], [place] [address] Performed By: #### 2 4321-2, 2276-4, 64321-4 ####[facility] LABIA [id number] [address] [address] [place] CO2 [Moles/Vol] 23 mmol/L Normal 22-30 [facility] Comment on above: Order Comment: Speci men Type: BLOOD SPECIMENOrdering Facility: [facility] Address: [address] [place], [place] [address] Performed By: #### 2 4321-2, 2276-4, 72143-8 ####[facility] LABIA [id number] [address] [address] [place] Creatinine [Mass/Vol] 0.83 mg/dL Normal 0.58-0.96 [facility] Comment on above: Order Comment: Speci men Type: BLOOD SPECIMENOrdering Facility: [facility] Address: [address] [place] [address] Performed By: #### 2 4321-2, 2276-4, 01051-6 ####[facility] LABIA [id number] [address] [address] [place] eGFRcr SerPlBld CKD-EPI 2020 72 mL/min/1.73m??? Normal >=60 [facility] Comment on above: Order Comment: Speci men Type: BLOOD SPECIMENOrdering Facility: [facility] Address: [address] [place] [address] Result Comment: Melany mated Glomerular Filtration Rate (eGFR) is calculated using the 2020 CKD-EPI creatinine equation. This equation utilizes serum creatinine, sex, and age as parameters. The creatinine assay has traceable calibration to isotope dilution-mass spectrometry. Refer to KDIGO guidelines for clinical interpretation. In patients with unstable renal function, e.g. those with acute kidney injury, the eGFR may not accurately reflect actual GFR. Performed By: #### 2 4321-2, 6-4, 54865-7 ####[facility] LABCLIA [id number] [address] [address] [place] Glucose [Mass/Vol] 96 mg/dL Normal 74-99 [facility] Comment on above: Order Comment: Priscilai men Type: BLOOD SPECIMENOrdering Facility: [facility] Address: [address] [place] [address] Result Comment: The [place] Diabetes Association (ADA) provides guidance for cutoff values for fasting glucose and random glucose. The ADA defines fasting as no caloric intake for at least 8 hours. Fasting plasma glucose results between 100 to 125 [...] Standards of Medical Care in Diabetes 2016, [place] Diabetes Association. Diabetes Care. 2016.39(Suppl 1). Performed By: #### 2 4321-2, 6-4, 24566-3 ####[facility] LABIA [id number] [address] [address] [place] Potassium [Moles/Vol] 4.3 mmol/L Normal 3.7-5.1 [facility] Comment on above: Order Comment: Marcus appiah Type: BLOOD SPECIMENOrdering Facility: [facility] Address: [address] [place] [address] Performed By: #### 2 4321-2, 6-4, 02629-6 ####[facility] LABCLIA [id number] [place] [address] [place] Sodium [Moles/Vol] 139 mmol/L Normal 136-144 [facility] Comment on above: Order Comment: Speci men Type: BLOOD SPECIMENOrdering Facility: [facility] Address: [address] [place] [address] Performed By: #### 2 4321-2, 2276-4, 73391-6 ####[facility] [id number] [place] [id number] [place] Urea nitrogen [Mass/Vol] 25 mg/dL High 7-21 [facility] Comment on above: Order Comment: Speci men Type: BLOOD SPECIMENOrdering Facility: [facility] Address: [address] [place] [address] Performed By: #### 2 4321-2, 2276-4, 67670-4 ####[facility] [id number] [place] [address] [place] CBC panel Auto (Bld)on 06-09 Erythrocyte distribution width (RBC) [Ratio] 12.8 % 11.5 - 15.0 % [facility] Hematocrit (Bld) [Volume fraction] 39.0 % 36.0 - 46.0 % [facility] Hemoglobin (Bld) [Mass/Vol] 12.8 g/dL 11.5 - 15.5 g/dL [facility] Interpretation and review of laboratory results Normal [facility] MCH (RBC) [Entitic mass] 30.8 pg 26.0 - 34.[address] [facility] MCHC (RBC) [Mass/Vol] 32.8 g/dL 30.5 - 36.0 g/dL [facility] MCV (RBC) [Entitic vol] 94.0 fL 80.0 - 100.[address] [facility] Nucleated RBC (Bld) [#/Vol] NINF [facility] Platelet mean volume (Bld) [Entitic vol] 10.8 fL 9.0 - 12.[address] [facility] Platelets (Bld) [#/Vol] 265 10*3/uL [facility] RBC (Bld) [#/Vol] 4.15 10*6/uL 3.90 - 5.2 0 m/uL [facility] WBC (Bld) [#/Vol] 8.08 10*3/uL [facility] Erythrocyte distribution width (RBC) [Ratio] 12.8 % Normal 11.5-15.0 [facility] Comment on above: Order Comment: Speci men Type: BLOOD SPECIMENOrdering Facility: [facility] Address: [address] [place] [address] Performed By: #### 5 8410-2 ####[facility] LABIA [id number] [place] [address] [place] Hematocrit (Bld) [Volume fraction] 39.0 % Normal 36.0-46.0 [facility] Comment on above: Order Comment: Speci men Type: BLOOD SPECIMENOrdering Facility: [facility] Address: [address] [place] [address] Performed By: #### 5 8410-2 ####[facility] LABIA [id number] [place] [address] [place] Hemoglobin (Bld) [Mass/Vol] 12.8 g/dL Normal 11.5-15.5 [facility] Comment on above: Order Comment: Speci men Type: BLOOD SPECIMENOrdering Facility: [facility] Address: [address] [place] [address] Performed By: #### 5 8410-2 ####[facility] LABIA [id number] [place] [address] [place] MCH (RBC) [Entitic mass] 30.8 pg Normal 26.0-34.0 [facility] Comment on above: Order Comment: Speci men Type: BLOOD SPECIMENOrdering Facility: [facility] Address: [address] [place] [address] Performed By: #### 5 8410-2 ####[facility] LABIA [id number] [place] MCHC (RBC) [Mass/Vol] 32.8 g/dL Normal 30.5-36.0 [facility] Comment on above: Order Comment: Speci men Type: BLOOD SPECIMENOrdering Facility: [facility] Address: [address] [place] [address] Performed By: #### 5 8410-2 ####[facility] LABIA [id number] [place] [address] [place] MCV (RBC) [Entitic vol] 94.0 fL Normal 80.0-100.0 [facility] Comment on above: Order Comment: Speci men Type: BLOOD SPECIMENOrdering Facility: [facility] Address: [address] [place] [address] Performed By: #### 5 8410-2 ####[facility] LABCLIA [id number] [place] [address] [place] Nucleated RBC (Bld) [#/Vol] 10*3/uL Normal <0.01 [facility] Comment on above: Order Comment: Speci men Type: BLOOD SPECIMENOrdering Facility: [facility] Address: [address] [place] [address] Performed By: #### 5 8410-2 ####[facility] LABIA [id number] [place] [address] [place] Platelet mean volume (Bld) [Entitic vol] 10.8 fL Normal 9.0-12.7 [facility] Comment on above: Order Comment: Speci men Type: BLOOD SPECIMENOrdering Facility: [facility] Address: [address] [place] [address] Performed By: #### 5 8410-2 ####[facility] LABCLIA [id number] [place] [address] [place] Platelets (Bld) [#/Vol] 265 10*3/uL Normal 150-400 [facility] Comment on above: Order Comment: Speci men Type: BLOOD SPECIMENOrdering Facility: [facility] Address: [address] [place] [address] Performed By: #### 5 8410-2 ####[facility] LABIA [id number] [place] [address] [place] RBC (Bld) [#/Vol] 4.15 10*6/uL Normal 3.90-5.[address] [facility] Comment on above: Order Comment: Speci men Type: BLOOD SPECIMENOrdering Facility: [facility] Address: [address] [place] [address] Performed By: #### 5 8410-2 ####[facility] LABIA [id number] [place] [address] [place] WBC (Bld) [#/Vol] 8.08 10*3/uL Normal 3.70-11.[address] [facility] Comment on above: Order Comment: Speci men Type: BLOOD SPECIMENOrdering Facility: [facility] Address: [address] [place] [address] Performed By: #### 5 8410-2 ####[facility] LABIA [id number] [place] [address] [place] CNOVon 06-09-2025 CNOV Office Visit (INTMWS ) DODIE LI ([id number]) 1945 F Date Time Provider Department 06/09/25 1:00 PM MALU TOWNSEND INTMWS During your visit today, we recorded the following information about you: Pulse Respiration Blood pressure Weight 74/minute 16/minute 95/55 83.2 kg Height 1.492 m Malu Townsend, [employer].MERARI 06/09/2025 2:08 PM Signed Dodie Li is a 79 year old female here for a Medicare [...] of the patient in the medical record. Current care team: Patient Care Team: Adeel Hayes MD as PCP - Destini Hook APRN.BUTTON MAKER AND INSTALLER as Pumper Gager Apprentice (Internal Medicine) Enriqueta Otto APRN.FILM EDITOR as Pumper Gager Apprentice (Internal Medicine) Dr. Lal (Retinal specialist), Dr. Denny Briseno (fruit room hand) Medical/Family history review Reviewed and updated problem list, medical/surgical/famil y/social history, medications, and allergies. Opioid use review Opioid Medications (last 90 days) No data to display Anxiety/Depression screening Already diagnosed Recommendation: continuing current treatment plan Cognitive screening Mini Cog Score: 2 Cognitive screening reviewed and Recommended referral for further evaluation (score 0-2). Functional Observation Was the patient's Timed Up AND Go test unsteady or >= 12 seconds? Advance Care Planning Patient did not wish or was not able to name a surrogate decision maker or provide an advance care plan Measurements BP 95/55 Pulse 74 Resp 16 Ht 149.2 cm (4' 10.75) Wt 83.2 kg (183 lb 6.8 oz) SpO2 96% BMI 37.36 kg/m? Vision Screening: Follows with optometry/ophthalmolog y Assessment/Plan Medicare annual wellness visit, subsequent (Z00.00) - Counseled on healthy diet and regular exercise - Fall avoidance information provided - Personalized prevention plan provided - Discussed need for and benefit of weight loss. BMI 37.36 kg/(m2) Additional Concerns The following concerns were also discussed with the patient: Rash: She reports first developing an itchy rash along her arm about a year to a year and a half ago, which lasted approximately five weeks at that time. She previously received a prescription powder but found it difficult to apply and wonders if she now needs additional treatment. She bathes once weekly, performs sponge baths otherwise, and attempts to keep the affected area dry. The rash remains persistently itchy. Memory Concerns: She was informed she missed a few points on a recent memory screening. She declines seeing a memory specialist and attributes her forgetfulness to stress regarding power of traffic law attorney changes and to aging. She denies receiving any specialized memory care. Blood Pressure and Dizziness: She describes a long history of HTN and states she was on 50 mg of atenolol for years, which was subsequently decreased to 25 mg because it made her feel ?loopy.? She still feels that her blood pressure is too low and continues to have fatigue. She commonly experiences episodes of feeling ?woozy? or ?drunk? by mid-afternoon, typically improving by around 1700. Review of Systems Constitutional: Negative for chills, diaphoresis, fever and unexpected weight change. Respiratory: Negative for cough, shortness of breath and wheezing. Cardiovascular: Negative for chest pain, palpitations and leg swelling. Gastrointestinal: Negative for anal bleeding. Genitourinary: Negative for dysuria. Neurological: Negative for syncope and numbness. Objective: BP 95/55 Pulse 74 Resp 16 Ht 149.2 cm (4' 10.75) Wt 83.2 kg (183 lb 6.8 oz) SpO2 96% BMI 37.36 kg/m? Physical Exam Vitals reviewed. Constitutional: Appearance: Normal appearance. HENT: Mouth/Throat: Mouth: Mucous membranes are moist. Pharynx: Oropharynx is clear. Eyes: Conjunctiva/sclera: Conjunctivae normal. Cardiovascular: Rate and Rhythm: Normal rate and regular rhythm. Heart sounds: Normal heart sounds. Pulmonary: Effort: Pulmonary effort is normal. Breath sounds: Normal breath sounds. No wheezing, rhonchi or rales. Abdominal: Neurological: Mental Status: She is alert. Psychiatric: Mood and Affect: Mood normal. DATA REVIEWED: Most recent labs Assessment/Plan: 1. Medicare annual wellness visit, subseque (more content not included)... Normal [facility] FERRITINon 06-09-2025 Ferritin [Mass/Vol] 94.1 ng/mL 14.7 - 2 05.1 ng/mL [facility] FOLATE, SERUMon 06-09-2025 Folate [Mass/Vol] 12.3 ng/mL 4.7 - PINF ng/mL [facility] Ferritin SerPl-mCncon 2024 Ferritin [Mass/Vol] 94.1 ng/mL Normal 14.7-205.[address] [facility] Comment on above: Order Comment: Speci men Type: BLOOD SPECIMENOrdering Facility: [facility] Address: [address] [place] [address] Performed By: #### 2 4321-2, 2276-4, 46523-4 ####[facility] LABCLIA [id number] [place] [id number] [place] Ferritin [Mass/Vol]on 2024 Interpretation and review of laboratory results Normal [facility] Folate SerPl-ncon 06-09-20 Folate [Mass/Vol] 12.3 ng/mL Normal >4.7 [facility] Comment on above: Order Comment: Speci men Type: BLOOD SPECIMENOrdering Facility: [facility] Address: [address] [place] [address] Performed By: #### 2 284-8, 2132-9 ####[facility] LABCLIA [id number] [address] [place] Iron and Iron binding capaci ty panelon 06-09-2025 Interpretation and review of laboratory results Normal [facility] Iron [Mass/Vol] 78 ug/dL 41 - 186 ug/dL [facility] Iron binding capacity [Mass/Vol] 348 ug/dL 232 - 386 ug/dL [facility] Iron/TIBC [Molar ratio] 22.4 % 15.0 - 57.0 % [facility] Iron [Mass/Vol] 78 ug/dL Normal 41-186 [facility] Comment on above: Order Comment: Speci men Type: BLOOD SPECIMENOrdering Facility: [facility] Address: [address] [place] [address] Performed By: #### 2 4321-2, 2276-4, 86339-1 ####[facility] LABCLIA [id number] [place] [id number] [place] Iron binding capacity [Mass/Vol] 348 ug/dL Normal 232-386 [facility] Comment on above: Order Comment: Speci men Type: BLOOD SPECIMENOrdering Facility: [facility] Address: [address] [place], [place] [id number] Performed By: #### 2 4321-2, 2276-4, 56920-9 ####[facility] LABIA [id number] [address] [address] [place] Iron/TIBC [Molar ratio] 22.4 % Normal 15.0-57.0 [facility] Comment on above: Order Comment: Speci men Type: BLOOD SPECIMENOrdering Facility: [facility] Address: [address] [place] [address] Performed By: #### 2 4321-2, 2276-4, 48245-6 ####[facility] [id number] [place] [id number] [place] No Panel Informationon 06-[address] [facility] Interpretation and review of laboratory results Normal [facility] VITAMIN B12on 06-09-2025 Cobalamin (Vitamin B12) [Mass/Vol] 1081 pg/mL 232 - 1245 pg/mL [facility] Vit B12 SerPl-mCncon 025 Cobalamin (Vitamin B12) [Mass/Vol] 1081 pg/mL Normal 232-1245 [facility] Comment on above: Order Comment: Speci men Type: BLOOD SPECIMENOrdering Facility: [facility] Address: [address] [place] [address] Performed By: #### 2 284-8, 2132-9 ####[facility] LABIA [id number] [place] [id number] [place] CNPDede 04-23-2025 [facility] Telephone (INTMWS) DODIE LI ([id number]) 1945 F Date Time Provider Department 04/23/25 ADEEL HAYES INTMWS During your visit today, we recorded the following information about you: Carla Almonte RN 04/23/2025 1:51 PM Signed Patient calls and states that in the afternoon patient still feels sleepy and she has a hard time staying. Patient wanting to know what else can be done? Patient's atenolol was decreased to 25 mg at appointment on 04/15/2025 and patient was restarted on Seroquel due to depressive mood. Please review and advise, MARGOT Mckeon Liza D, MD 04/25/2025 3:14 PM Signed Seroquel? Patient was on sertraline before for depression, not seroquel. Clarify meant sertraline. Is she sleeping okay at night? Carla Almonte RN 04/27/2025 9:08 AM Addendum Patient was started back on sertraline. Patient states that she has been sleeping ok. Patient states that she is not feeling as sleepy in the afternoon now. Patient states that since atenolol was decreased to 25 mg she has not felt as loopy. Please review and advise, MARGOT Mckeon Krystle, RN 04/30/2025 3:01 PM Signed Patient calls to report she heard it was better to take BP medication at night and asking if she should do that. Asked patient how she was feeling and she reports pretty good as of right now. She doesn't feel that she is as loopy and overall better. Reports BP has been ok when they check it but didn't have any specific readings. Recommended she continue taking her atenolol in the morning as she has been if she is feeling better and then that way if she starts having problems again she could have the nurses check her BP throughout the day. Patient agrees. MARGOT Tobar Liza D, MD 04/30/2025 6:08 PM Signed Noted. Agree with continuing meds as is as noted below since doing better. Follow up as needed Deidra Flores RN 04/30/2025 6:50 PM Signed Pt called and is notified of providers mesage and instructions. Pt voices understanding. Deidra Flores RN Allergies As of Date: 04/23/2025 Noted Allergy Reaction SIMVASTATIN 05/08/2019 14 - Other: See Comments Comments: Flu like sx, body aches AMOXICILLIN 06/02/2005 2 - Rash ASA (SALICYLATES) 06/02/2005 Comments: if not coated FLAGYL (METRONIDAZOLE HCL) 06/02/2005 LISINOPRIL 06/02/2005 PENICILLINS 06/02/2005 2 - Rash Date Reviewed: 04/15/2025 Reviewed by: Destini Lee APRN.BUTTON MAKER AND INSTALLER - Fully Assessed Reason for Visit: Patient Update [1234] Prescriptions as of 04/30/2025 - sertraline (ZOLOFT) 25 mg tablet Take 1 tablet by mouth once daily. - atenolol (TENORMIN) 25 mg tablet Take 1 tablet by mouth once daily. - potassium chloride SR (MICRO-K) 10 mEq [...] 2 mg by mouth as needed. - doxepin capsule 10 mg Take 1 capsule by mouth daily at bedtime. - vit C/E/Zn/coppr/lutein/ze axan (PRESERVISION AREDS-2 ORAL) Take 1 tablet by [...] 1,000 mcg by mouth once daily. - guaifenesin/dextrometh orphan (MUCINEX DM ORAL) Take 1 tablet by mouth once daily as needed. - fexofenadine (LETICIA) 60 mg tablet Take 180 mg by mouth once daily as needed. - polyethylene glycol 3350 (MIRALAX) 17 gram/dose powder Take 17 g by mouth once daily. - aspirin, enteric coated (ASPIRIN, ENTERIC COATED) 81 mg EC tablet Take 81 mg by mouth once daily. - cholecalciferol(VITAMI N D 2,000 UNIT CAP) Take 4,000 Units [...] takes. 09/09/2024 Problem List As Of Date 0 (more content not included)... Normal [facility] CNOVon 04-15-2025 CNOV Office Visit (INTMWS ) DODIE LI ([id number]) 1945 F Date Time Provider Department 04/15/25 3:40 PM DESTINI LEE INTMWS During your visit today, we recorded the following information about you: Pulse Blood pressure Weight Height 70/minute 102/70 82.3 kg 1.485 m Destini Lee APRN.CNP 04/15/2025 3:58 PM Signed SUBJECTIVE Dodie Li is a 79 year old female here today for a check up on her medical problems. Chief Complaint Patient presents with: Blood Pressure Dizziness HPI Dodie Li is a 79-year-old female, residing in a fci, presenting with concerns about low blood pressure readings, dizziness, and visual disturbances. Dodie reports experiencing visual disturbances described as floaters and a fine mist that appear intermittently and then resolve. 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 She also reports concerns about low blood pressure readings, with recent measurements at her fci being 115/59 mmHg and 102/70 mmHg. She is currently taking atenolol 50 mg in the morning. She notes that her symptoms of dizziness and feeling loopy begin in the mid-afternoon and improve by the evening. She also reports difficulty focusing her eyes and increased fatigue, stating, I could fall asleep right now, I'll tell you the truth. She attributes these symptoms to her medication regimen and expresses concern about the timing of her medication administration. Dodie has a history of falls, having fallen three times since residing in the fci. She also has a history of a hip replacement and expresses concern about the potential consequences of another fall. She was previously taking sertraline for adjustment issues related to living in a fci but has since discontinued it. She reports feeling less focused and having difficulty expressing herself since stopping the medication. Dodie also mentions that her chlorthalidone was discontinued by Dr. Hayes in July due to complaints of dizziness and nocturia. She expresses concern about the potential for falls due to frequent nighttime urination and slippery floors in the fci. Her medications were reviewed today and her list is now up to date. Medications Current Outpatient Medications Medication Sig potassium chloride SR (MICRO-K) 10 mEq CR capsule Take 10 mEq by mouth once daily. phenylephrine HCl (PREPARATION H, PE, RECTAL) by RECTAL route. calcium carbonate (TUMS) 500 mg chew Take 500 mg by mouth every 4 hours as needed. ALPRAZolam (XANAX) 0.25 mg tablet Take 0.25 mg by mouth at bedtime as needed for anxiety. clindamycin (CLEOCIN) 300 mg capsule Take 300 mg by mouth. Take 2 capsules by mouth 1 hour prior to procedure loperamide HCl (IMODIUM A-D) 2 mg tab Take 2 mg by mouth as needed. doxepin capsule 10 mg Take 1 capsule by mouth daily at bedtime. vit C/E/Zn/coppr/lutein/ze axan (PRESERVISION AREDS-2 ORAL) Take 1 tablet by mouth once daily. omeprazole (PRILOSEC) 20 mg capsule Take 1 capsule by mouth once daily. OAT BRAN ORAL Take 2 tablets by mouth once daily. gemfibrozil (LOPID) 600 mg tablet Take 1 tablet by mouth two times a day. calcium carbonate (CALTRATE 600 ORAL) Take 1 tablet by mouth once daily. docusate sodium (STOOL SOFTENER ORAL) Take 2 capsules by mouth daily at bedtime. 200mg total VITAMIN E ACETATE ORAL Take 1 capsule by mouth once daily. Ascorbic Acid-Collagen (COLLAGEN PLUS VITAMIN C) 125-740 mg cap Take 1 capsule by mouth once daily. cyanocobalamin (VITAMIN B-12) 1,000 mcg tab Take 1,000 mcg by mouth once daily. guaifenesin/dextrometh orphan (MUCINEX DM ORAL) Take 1 tablet by mouth once daily as needed. fexofenadine (LETICIA) 60 mg tablet Take 180 mg by mouth once daily as needed. polyethylene glycol 3350 (MIRALAX) 17 gram/dose powder Take 17 g by mouth once daily. aspirin, enteric coated (ASPIRIN, ENTERIC COATED) 81 mg EC tablet Take 81 mg by mouth once daily. cholecalciferol(VITAMI N D 2,000 UNIT CAP) Take 4,000 Units by mouth once daily. OMEGA 3 550 MG CAP Take one(1) tablet daily. CALCIUM + D 600 MG-200 UNIT ORAL TAB Take by mouth. TYLENOL EXTRA STRENGTH 500 MG ORAL TAB Take two(2) tablets every four(4) to six(6) hours as needed. sertraline (ZOLOFT) 25 mg tablet Take 1 tablet by mouth once daily. atenolol (TENORMIN) 25 mg tablet Take 1 tablet by mouth once daily. No current facility-administered medications for this visit. ALLERGIES Allergen Reactions Simvastatin Other: See Comments Flu like sx, body aches Amoxicillin Rash Asa [Salicylates] if not coated Flagyl [Metronidazo* Lisinopril Penicillins Rash ACTIVE PROBLEM LIST Dizziness - 10/23/2021 Status Post Right Hip Replacement - 10/23/2021 Hypertriglyceridemia - 10/23/2021 Pain in Right Hip - 03/06/2019 Xerosis Cuti (more content not included)... [facility] (INTMWS) DODIE LI ([id number]) 1945 F Date Time Provider Department 04/14/25 ADEEL HAYES INTMWS During your visit today, we recorded the following information about you: Carla Almonte RN 04/14/2025 4:06 PM Signed Patient calls and states that she feels groggy a couple hours after taking medication at 9 am. Patient is wondering if blood pressure medications could be causing this. [facility] staff give patient her morning blood medications. Patient asking if provider thinks it would be beneficial if she took her BP mediations at night? Patients states that BP a little while ago was 115/58. Patient reports that blood pressure is not taken prior to her taking medications in the morning. Please review and advise, MARGOT Mckeon Amanda, RN 04/15/2025 10:44 AM Signed Pt called in and reports her BP was 115/59 and states that is low for her. I told her the last time she was in that her BP was 118/68, and she states that is more normal for her. She was asking what medications she was on for her BP. I told her she wad on the Atenolol 50 mg daily. She said she though she was on a diuretic. I told her she was on Atenolol-Chlorthalidon e 100-25 me, but that was discontinued 07/09/24. Pt states she feels fine when she wakes up in the morning, but by 2 or 3 she feels woozy or dizzy and she thinks its because the P medication has had time to work. She reports by bedtime she feels fine again once the medication has worked it's way out of her system. I told the Pt she needs to get one of the nurses to take her BP when she is feeling that way, and she states she can't always get someone to take it. I told her if she had a personal one she could take her own. I told Pt she should come in and be seen and to bring her BP readings with her. Pt is going to see when she would be able to get in. MARGOT Dozier Stephanie, RN 04/15/2025 10:50 AM Signed Patient calls back and schedules appointment with Destini on Sunday04/17/2025 2:20. MARGOT Mckeon Stephanie, RN 04/15/2025 11:06 AM Signed Patient calls back and now is scheduled to see Destini today at 3:40. MARGOT Mckeon Rosa, [employer] 04/15/2025 11:20 AM Signed noted Allergies As of Date: 04/14/2025 Noted Allergy Reaction SIMVASTATIN 05/08/2019 14 - Other: See Comments Comments: Flu like sx, body aches AMOXICILLIN 06/02/2005 2 - Rash ASA (SALICYLATES) 06/02/2005 Comments: if not coated FLAGYL (METRONIDAZOLE HCL) 06/02/2005 LISINOPRIL 06/02/2005 PENICILLINS 06/02/2005 2 - Rash Date Reviewed: 02/10/2025 Reviewed by: Deidra Curry RN - Fully Assessed Reason for Visit: Patient Update [1234] Prescriptions as of 04/15/2025 - potassium chloride SR (MICRO-K) 10 mEq [...] tablet by mouth once daily. - vit C/E/Zn/coppr/lutein/ze axan (PRESERVISION AREDS-2 ORAL) Take 1 tablet by [...] 1,000 mcg by mouth once daily. - BKOUGTT-OYRVUKYIN-PPAN ORAL Take 1 tablet by mouth once daily. - guaifenesin/dextrometh orphan (MUCINEX DM ORAL) Take 1 tablet by mouth once daily as needed. - fexofenadine (LETICIA) 60 mg tablet Take 180 mg by mouth once daily as needed. - polyethylene glycol 3350 (MIRALAX) 17 gram/dose powder Take 17 g by mouth once daily. - aspirin, enteric coated (ASPIRIN, ENTERIC COATED) 81 mg EC tablet Take 81 mg by mouth once daily. - cholecalciferol(VITAMI N D 2,000 UNIT CAP) Take 4,000 Units by mouth once daily. - OMEGA 3 550 MG CAP Take one(1) tablet daily (more content not included)... [facility] Telephone (INTMWS) DODIE LI ([id number]) 1945 F Date Time Provider Department 04/07/25 ADEEL HAYES INTMWS During your visit today, we recorded the following information about you: Carla Almonte RN 04/07/2025 10:26 AM Signed Patient calls and states that she does [...] telephone encounter from 03/30/2025 where Vale from [facility] was asking about discontinuing medication and had faxed over orders to do that. Please review and advise, MARGOT Mckeon Krystle, RN 04/07/2025 4:43 PM Signed Patient calls to check on status of request of message below. Reports [facility] staff received a fax that she should discontinue sertraline. Recommended patient follow the directions that patient received from [facility] staff since fax would have been from provider. MARGOT Tobar Liza D, MD 04/07/2025 8:48 PM Signed I sent order to d/c the sertraline in case it was causing or contributing to the falls. See how she does off the med. If ongoing issues with falls, consider evaluation with PT and/or neurology Daniela Gordon RN 04/08/2025 11:12 AM Signed Patient calls back and message below reviewed with verbalized understanding. Patient reports that she has already tried PT for the symptoms so if anything will want consult to neurology. Reports she will monitor symptoms and call back if desires consult. Daniela Gordon RN Allergies As of Date: 04/07/2025 Noted Allergy Reaction SIMVASTATIN 05/08/2019 14 - Other: See Comments Comments: Flu like sx, body aches AMOXICILLIN 06/02/2005 2 - Rash ASA (SALICYLATES) 06/02/2005 Comments: if not coated FLAGYL (METRONIDAZOLE HCL) 06/02/2005 LISINOPRIL 06/02/2005 PENICILLINS 06/02/2005 2 - Rash Date Reviewed: 02/10/2025 Reviewed by: Deidra Curry RN - Fully Assessed Reason for Visit: Patient Question [1477] Prescriptions as of 04/08/2025 - potassium chloride SR (MICRO-K) 10 mEq [...] tablet by mouth once daily. - vit C/E/Zn/coppr/lutein/ze axan (PRESERVISION AREDS-2 ORAL) Take 1 tablet by [...] 1,000 mcg by mouth once daily. - IKZQZIR-YYFQZWRID-GQFN ORAL Take 1 tablet by mouth once daily. - guaifenesin/dextrometh orphan (MUCINEX DM ORAL) Take 1 tablet by mouth once daily as needed. - fexofenadine (LETICIA) 60 mg tablet Take 180 mg by mouth once daily as needed. - polyethylene glycol 3350 (MIRALAX) 17 gram/dose powder Take 17 g by mouth once daily. - aspirin, enteric coated (ASPIRIN, ENTERIC COATED) 81 mg EC tablet Take 81 mg by mouth once daily. - cholecalciferol(VITAMI N D 2,000 UNIT CAP) Take 4,000 Units [...] takes. 09/09/2024 Problem List As Of Date 04/07/2025 Noted Resolved Fibromyalgia [M79.7] 06/02/2005 PERSISTENT INSOMNIA [G47.00] 06/02/2005 Essential hypertension [I10] 06/02/2005 ESOPHAGEAL REFLUX [K21.9] 06/02/2005 Reactive depression [F32.9] Macular degeneration (evelin (more content not included)... Normal [facility] DOD[facility] LI ([id number]) 1945 F Date Time Provider Department 03/30/25 ADEEL HAYES INTMWS During your visit today, we recorded the following information about you: Carla Almonte, RN 03/30/2025 12:15 PM Signed Vale from [facility] calls and states that they had received fax order to decrease sertraline. Family is asking for medication to be discontinued completely. Vale is faxing orders again to have medication discontinued. Please review and advise, Carla Almonte RN Allergies As of Date: 03/30/2025 Noted [...] tablet by mouth once daily. - vit C/E/Zn/coppr/lutein/ze axan (PRESERVISION AREDS-2 ORAL) Take 1 tablet by [...] 1,000 mcg by mouth once daily. - OCTWIWG-YJJTVNORV-BTUK ORAL Take 1 tablet by mouth once daily. - guaifenesin/dextrometh orphan (MUCINEX DM ORAL) Take 1 tablet by mouth once daily as needed. - fexofenadine (LETICIA) 60 mg tablet Take 180 mg by mouth once daily as needed. - polyethylene glycol 3350 (MIRALAX) 17 gram/dose powder Take 17 g by mouth once daily. - aspirin, enteric coated (ASPIRIN, ENTERIC COATED) 81 mg EC tablet Take 81 mg by mouth once daily. - cholecalciferol(VITAMI N D 2,000 UNIT CAP) Take 4,000 Units [...] [E66.9] Anxiety state [F41.1] 05/11/2006 OSTEOARTHROS NOS-L/LEG [[id number]] 09/24/2008 Impaired Fasting Glucose [R73.01] 03/22/2010 Xerosis cutis [L85.3] 01/10/2013 Cracked skin [R23.4] 01/10/2013 Neurofibroma of back [D36.17] 01/10/2013 Intradermal nevus [D23.9] 01/10/2013 Acrochordon [L91.8] 01/10/2013 Pain in right hip [M25.551] 03/06/2019 Dizziness [R42] 10/23/2021 Status post right hip replacement [Z96.641] 10/23/2021 Hypertriglyceridemia [E78.1] 10/23/2021 Encounter Status:Closed by LEILA VERDUZCO on 04/02/25 Normal [facility] CNOVon 02-10-2025 CNOV Office Visit (PODIWS ) DODIE LI ([id number]) 1945 F Date Time Provider Department 02/10/25 1:15 PM VICTORIA ASHLEY PODIWS During your visit today, we recorded the following information about you: Deidra Curry, MARGOT 02/10/2025 1:41 PM Signed Patient presents with: Left Foot - Established Patient, Follow Up, nail care Right Foot - Established Patient, Follow Up, nail care Patient presents for 5 month follow up nail care. [facility] 09/09/24 Victoria Ashley 02/10/2025 1:41 PM Signed [...] Victoria Ashley DPM Referring Provider: VICTORIA ASHLEY [[id number]] Allergies As of Date: 02/10/2025 Noted Allergy Reaction SIMVASTATIN 05/08/2019 14 - Other: See Comments Comments: Flu like sx, body aches AMOXICILLIN 06/02/2005 2 - Rash ASA (SALICYLATES) 06/02/2005 Comments: if not coated FLAGYL (METRONIDAZOLE HCL) 06/02/2005 LISINOPRIL 06/02/2005 PENICILLINS 06/02/2005 2 - Rash Date Reviewed: 02/10/2025 Reviewed by: Deidra Curry, RN - Fully Assessed Reason for Visit: Established Patient [175] Follow Up [171] nail care [Other] Established Patient [175] Follow Up [171] nail care [Other] Primary Visit Diagnosis:Onychomycosi s [B35.1] Other Visit Diagnoses:Pain in toe of [...] tablet by mouth once daily. - vit C/E/Zn/coppr/lutein/ze axan (PRESERVISION AREDS-2 ORAL) Take 1 tablet by [...] 1,000 mcg by mouth once daily. - WUHZDZU-LOGGVLBNV-HSFP ORAL Take 1 tablet by mouth once daily. - guaifenesin/dextrometh orphan (MUCINEX DM ORAL) Take 1 tablet by mouth (more content not included)... Normal [facility] [place] 01-26-2025 [facility] Telephone (INTMWS) JADODIE JURADO ([id number]) 1945 F Date Time Provider Department 01/26/25 ADEEL HAYES INTMWS During your visit today, we recorded the following information about you: Vickie Mckeon MA 01/26/2025 8:52 AM Addendum Office received faxed from [facility] regarding patient on 01/23/25. Neuro checks completed and to follow for review. Please review fax and complete. Once complete fax back to [facility] at [phone]. Office received fax regarding patient on 01/20/25 with update regarding fall. Please review fax and note. Once complete fax back to [facility] at [phone] Routed to PCP. MARISOL Briceno Liza D, [...] Reason for Visit: Electronic Communication [890] Cmt: [facility] Prescriptions as of 01/27/2025 - atenolol (TENORMIN) 50 mg tablet Take 1 tablet by mouth once daily. - sertraline (ZOLOFT) 25 mg tablet Take 1 tablet by mouth once daily. - doxepin capsule 10 mg Take 1 capsule by mouth daily at bedtime. - atenolol (TENORMIN) 50 mg tablet Take 1 tablet by mouth once daily. - vit C/E/Zn/coppr/lutein/ze axan (PRESERVISION AREDS-2 ORAL) Take 1 tablet by [...] 1,000 mcg by mouth once daily. - FEHHRQB-HYYSKEWMX-RTTN ORAL Take 1 tablet by mouth once daily. - guaifenesin/dextrometh orphan (MUCINEX DM ORAL) Take 1 tablet by mouth once daily as needed. - fexofenadine (LETICIA) 60 mg tablet Take 60 mg by mouth once daily as needed. - polyethylene glycol 3350 (MIRALAX) 17 gram/dose powder Take 17 g by mouth once daily. - aspirin, enteric coated (ASPIRIN, ENTERIC COATED) 81 mg EC tablet Take 81 mg by mouth once daily. - cholecalciferol(VITAMI N D 2,000 UNIT CAP) Take by mouth. 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.17] 01/10/2013 Intradermal nevus [D23.9] 01/10/2013 Acrochordon [L91.8] 01/10/2013 Pain in right hip [M25.551] 03/06/2019 Dizziness [R42] 10/23/2021 Status post right hip replacement [Z96.641] 10/23/2021 Hypertriglyceridemia [E78.1] 10/23/2021 Encounter Status:Closed by GISELE SHEEHAN on 01/27/25 [facility] D[facility] ([id number]) 1945 F Date Time Provider Department 12/23/24 ADEEL HAYES INTWS During your visit today, we recorded the following information about you: Ariana Hernandez LPN 12/23/2024 4:10 PM Signed Angie from [employer] calling to report patient had fall on [...] tablet by mouth once daily. - vit C/E/Zn/coppr/lutein/ze axan (PRESERVISION AREDS-2 ORAL) Take 1 tablet by [...] 1,000 mcg by mouth once daily. - KBHOMJA-PCSIUKQZL-GNVF ORAL Take 1 tablet by mouth once daily. - guaifenesin/dextrometh orphan (MUCINEX DM ORAL) Take 1 tablet by mouth once daily as needed. - fexofenadine (LETICIA) 60 mg tablet Take 60 mg by mouth once daily as needed. - polyethylene glycol 3350 (MIRALAX) 17 gram/dose powder Take 17 g by mouth once daily. - aspirin, enteric coated (ASPIRIN, ENTERIC COATED) 81 mg EC tablet Take 81 mg by mouth once daily. - cholecalciferol(VITAMI N D 2,000 UNIT CAP) Take by mouth. [...] [E66.9] Anxiety state [F41.1] 05/11/2006 OSTEOARTHROS NOS-L/LEG [[id number]] 09/24/2008 Impaired Fasting Glucose [R73.01] 03/22/2010 Xerosis cutis [L85.3] 01/10/2013 Cracked skin [R23.4] 01/10/2013 Neurofibroma of back [D36.17] 01/10/2013 Intradermal nevus [D23.9] 01/10/2013 Acrochordon [L91.8] 01/10/2013 Pain in right hip [M25.551] 03/06/2019 Dizziness [R42] 10/23/2021 Status post right hip replacement [Z96.641] 10/23/2021 Hypertriglyceridemia [E78.1] 10/23/2021 Encounter Status:Closed by DEIDRA FLORES on 12/24/24 [facility] [place] 11-25-2024 [facility] Telephone (FAMPWS) DODIE LI ([id number]) 1945 F Date Time Provider Department 11/25/24 [...] for SW order and agreement with POC. MNAJEET Lopes Terri, APRN.FILM EDITOR 11/25/2024 4:47 PM Addendum OK for all [facility]. Ameena Truong LPN 11/26/2024 9:41 AM Signed [...] tablet by mouth once daily. - vit C/E/Zn/coppr/lutein/ze axan (PRESERVISION AREDS-2 ORAL) Take 1 tablet by [...] 1,000 mcg by mouth once daily. - DSHKHQZ-DDECSKKIQ-NCHE ORAL Take 1 tablet by mouth once daily. - guaifenesin/dextrometh orphan (MUCINEX DM ORAL) Take 1 tablet by mouth once daily as needed. - fexofenadine (LETICIA) 60 mg tablet Take 60 mg by mouth once daily as needed. - polyethylene glycol 3350 (MIRALAX) 17 gram/dose powder Take 17 g by mouth once daily. - aspirin, enteric coated (ASPIRIN, ENTERIC COATED) 81 mg EC tablet Take 81 mg by mouth once daily. - cholecalciferol(VITAMI N D 2,000 UNIT CAP) Take by mouth. 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 - vit C/E/Zn/coppr/lutein/ze axan (PRESERVISION AREDS-2 ORAL) Take 1 tablet by [...] 1,000 mcg by mouth once daily. - AEJAWNV-ZKWAMBNGP-OJZR ORAL Take 1 tablet by mouth once daily. - guaifenesin/dextrometh orphan (MUCINEX DM ORAL) Take 1 tablet by mouth once daily as needed. - fexofenadine (LETICIA) 60 mg tablet Take 60 mg by mouth once daily as needed. - polyethylene glycol 3350 (MIRALAX) 17 gram/dose powder Take 17 g by mouth once daily. - aspirin, enteric coated (ASPIRIN, ENTERIC COATED) 81 mg EC tablet Take 81 mg by mouth once daily. - cholecalciferol(VITAMI N D 2,000 UNIT CAP) Take by mouth. 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 Pt went home from [facility] on 11-06-24. Please advise Mami with [...] LPN - Fully Assessed Reason for Visit: [facility]- verbal orders needed [Other] Prescriptions as of 11/14/2024 - atenolol (TENORMIN) 50 mg tablet Take 1 tablet by mouth once daily. - sertraline (ZOLOFT) 25 mg tablet Take 1 tablet by mouth once daily. - doxepin capsule 10 mg Take 1 capsule by mouth daily at bedtime. - atenolol (TENORMIN) 50 mg tablet Take 1 tablet by mouth once daily. - vit C/E/Zn/coppr/lutein/ze axan (PRESERVISION AREDS-2 ORAL) Take 1 tablet by [...] 1,000 mcg by mouth once daily. - YOSRGQA-SXDJQRLNC-UHKS ORAL Take 1 tablet by mouth once daily. - guaifenesin/dextrometh orphan (MUCINEX DM ORAL) Take 1 tablet by mouth once daily as needed. - fexofenadine (LETICIA) 60 mg tablet Take 60 mg by mouth once daily as needed. - polyethylene glycol 3350 (MIRALAX) 17 gram/dose powder Take 17 g by mouth once daily. - aspirin, enteric coated (ASPIRIN, ENTERIC COATED) 81 mg EC tablet Take 81 mg by mouth once daily. - cholecalciferol(VITAMI N D 2,000 UNIT CAP) Take by mouth. [...] [E66.9] Anxiety state [F41.1] 05/11/2006 OSTEOARTHROS NOS-L/LEG [[id number]] 09/24/2008 Impaired Fasting Glucose [R73.01] 03/22/2010 Xerosis cutis [L85.3] 01/10/2013 Cracked skin [R23.4] 01/10/2013 Neurofibroma of back [D36.17] 01/10/2013 Intradermal nevus [D23.9] 01/10/2013 Acrochordon [L91.8] 01/10/2013 Pain in right hip [M25.551] 03/06/2019 Dizziness [R42] 10/23/2021 Status post right hip replacement [Z96.641] 10/23/2021 Hypertriglyceridemia [E78.1] 10/23/2021 Encounter Status:[facility]INTMWS[facility] DODIE LI ([id number]) 1945 F Date Time Provider Department 10/29/24 ADEEL HAYES INTMWS During your visit today, we recorded the following information about you: Meredith Varela RN 10/29/2024 3:51 PM Signed Patient reports she is at [facility], Assisted Living, and would like an order for Physical Therapy there, to help strengthen her legs. She reports she uses a walker. Asking if PCP would place order. Pended. Please call patient with reply, and call [facility], assisted living nurse, with PT order update as well. [phone]. MARGOT Veloz Liza D, MD 10/29/2024 6:53 [...] strength and hand can be faxed to [facility]. Patient advised that [facility] staff told her that they do not [...] 11:37 AM Signed Order for PT at [facility] was faxed to [facility]. Allergies As of Date: 10/29/2024 Noted Allergy Reaction SIMVASTATIN 05/08/2019 14 - Other: See Comments Comments: Flu like sx, body aches AMOXICILLIN 06/02/2005 2 - Rash ASA (SALICYLATES) 06/02/2005 Comments: if not coated FLAGYL (METRONIDAZOLE HCL) 06/02/2005 LISINOPRIL 06/02/2005 PENICILLINS 06/02/2005 2 - Rash Date Reviewed: 09/09/2024 Reviewed by: Sabina Briseno LPN - Fully Assessed Reason for Visit: Patient Request [1696] Primary Visit Diagnosis:Weakness of both lower extremities [R29.898] Other Visit Diagnoses:Gait instability [R26.81] Primary osteoarthritis of both knees [M17.0] S/P total right hip arthroplasty [Z96.641] Right hand weakness [R29.898] Order(s):CONSULT TO PHYSICAL THERAPY [9032] Order #: [id number]: 1 FUTURE CONSULT TO NON-[facility] FACILITY [8863018] Order #: [id number] Prescriptions as of 11/04/2024 - atenolol (TENORMIN) [...] tablet by mouth once daily. - vit C/E/Zn/coppr/lutein/ze axan (PRESERVISION AREDS-2 ORAL) Take 1 tablet by [...] 1,000 mcg by mouth once daily. - YFPMGNL-NZYYJZNJO-CBKK ORAL Take 1 tablet by mouth once daily. - guaifenesin/dextrometh orphan (MUCINEX DM ORAL) Take 1 tablet by mouth once daily as needed. - fexofenadine (LETICIA) 60 mg tablet Take 60 mg by mouth once daily as needed. - polyethylene glycol 3350 (MIRALAX) 17 gram/dose powder Take 17 g by mouth once daily. - aspirin, enteric coated (ASPIRIN, ENTERIC COATED) 81 mg EC tablet Take 81 mg by mouth once daily. - cholecalciferol(VITAMI N D 2,000 UNIT CAP) Take by mouth. [...] Resolved Fibrom (more content not included)... [facility] Tele[facility] (INTMWS) DODIE LI ([id number]) 1945 F Date Time Provider Department 09/25/24 ADEEL HAYES INTMWS During your visit today, we recorded the following information about you: Daniela Gordon, MARGOT 09/25/2024 3:33 PM Signed Patient calls to ask if provider would send a small supply of xanax to [facility]. Patient reports in the past she has taken it rarely on an as needed basis and feels it would help her anxiety if she could have a small amount on hand at the facility. Patient reports if provider is agreeable to send to the nursing department at [facility]. Daniela Gordon, Rey Berman RN 10/03/2024 11:46 AM Signed Pt checking on her request for xanax Rx. See message below. Adeel Hayes MD 10/04/2024 2:57 AM Addendum Noted last RX from 02/11 for 0.25mg pill Not sure where to send RX Since does not take often, i wrote for 1 pill once daily as needed for 14 pills; needs to have a time frame with [facility] RX orders, so wrote for 30 days, but may keep the RX on hand at [facility] to keep on hand to use as needed for occasional episode of anxiety. Gisele Sheehan LPN 10/04/2024 8:05 AM Signed Spoke with nurse at [facility]. Order for medication needs to be sent to [facility]. Copy of this encounter has been faxed to [place] at [phone] Adeel Hayes MD 10/05/2024 3:07 PM Signed [...] Fully Assessed Reason for Visit: Patient Question [5337] Primary Visit Diagnosis:Anxiety state [F41.1] Order(s):ALPRAZolam (XANAX) [...] tablet by mouth once daily. - vit C/E/Zn/coppr/lutein/ze axan (PRESERVISION AREDS-2 ORAL) Take 1 tablet by [...] 1,000 mcg by mouth once daily. - FOSFMUV-CMZVBIKYJ-BGSM ORAL Take 1 tablet by mouth once daily. - guaifenesin/dextrometh orphan (MUCINEX DM ORAL) Take 1 tablet by mouth once daily as needed. - fexofenadine (LETICIA) 60 mg tablet Take 60 mg by mouth once daily as needed. - polyethylene glycol 3350 (MIRALAX) 17 gram/dose powder Take 17 g by mouth once daily. - aspirin, enteric coated (ASPIRIN, ENTERIC COATED) 81 mg EC tablet Take 81 mg by mouth once daily. - cholecalciferol(VITAMI N D 2,000 UNIT CAP) Take by mouth. [...] [E66.9] Anxiety state [F41.1] 05/11/2006 OSTEOARTHROS NOS-L/LEG [[id number]] 09/24/2008 Impaired Fasting Glucose [R73.01] 03/22/2010 Xerosis cutis [L85.3] 01/10/2013 Radio Station Operator (more content not included)... Normal [facility] [place] 09-16-2024 ALEX Telephone (INTWS) DODIE LI ([id number]) 1945 F Date Time Provider Department 09/16/24 ADEEL HAYES INTMWS During your visit today, we recorded the following information about you: Leila VerduzcoMANJEET 09/16/2024 1:45 PM Signed Fax rec'd from [facility] asking for rx to be sent to [facility] for sertraline 25mg one tablet daily #90 [...] Called and left a detailed voicemail notifying [facility] nurse [facility] of providers message. Clinic phone number was left for the nurse to call back and answer providers questions. Called Pt and no answer. Pt did not have voicemail set up. Will need to call back. MARGOT Dozier Stephanie, RN 09/22/2024 10:38 AM Signed Colette Whitten LPN from [facility] calls and states that patient has been on medication since being admitted to their facility on 08/04/2024. Medication was listed on patient's history and physical and other paperwork that was faxed over to [facility]. [facility] has not noticed any adverse effects while [...] tablet by mouth once daily. Authorizing Provider: TALAMPAS, ADEEL MD Mark Mayorga Amanda, RN 09/22/2024 5:11 PM Signed Gricelda nurse from [facility] called and is notified of providers message [...] tablet by mouth once daily. - vit C/E/Zn/coppr/lutein/ze axan (PRESERVISION AREDS-2 ORAL) Take 1 tablet by [...] 1,000 mcg by mouth once daily. - FOGZZTY-WYZHQKJWM-QMUM ORAL Take 1 tablet by mouth once daily. - guaifenesin/dextrometh orphan (MUCINEX DM ORAL) Take 1 tablet by mouth once daily as needed. - fexofenadine (LETICIA) 60 mg tablet Take 60 mg by mouth once daily as needed. - polyethylene glycol 3350 (MIRALAX) 17 gram/dose powder Take 17 g by mouth once daily. - aspirin, enteric coated (ASPIRIN, ENTERIC COATED) 81 mg EC tablet Take 81 mg by mouth once daily. - cholecalciferol(VITAMI N D 2,000 UNIT CAP) Take by mouth. [...] 06/02/2005 ESOP (more content not included)... Normal [facility] Telephone (INTMWS) DODIE LI ([id number]) 1945 F Date Time Provider Department 09/16/24 ADEEL HAYES INTReyWS During your visit today, we recorded the following information about you: Deidra Flores RN 09/16/2024 12:06 PM Signed Pt called in asking if Dr Hayes takes [facility]. I told her I didn't know, but [...] tablet by mouth once daily. - vit C/E/Zn/coppr/lutein/ze axan (PRESERVISION AREDS-2 ORAL) Take 1 tablet by [...] 1,000 mcg by mouth once daily. - AZDQDKA-ZKNXHIDBO-PEQO ORAL Take 1 tablet by mouth once daily. - guaifenesin/dextrometh orphan (MUCINEX DM ORAL) Take 1 tablet by mouth once daily as needed. - fexofenadine (LETICIA) 60 mg tablet Take 60 mg by mouth once daily as needed. - polyethylene glycol 3350 (MIRALAX) 17 gram/dose powder Take 17 g by mouth once daily. - aspirin, enteric coated (ASPIRIN, ENTERIC COATED) 81 mg EC tablet Take 81 mg by mouth once daily. - cholecalciferol(VITAMI N D 2,000 UNIT CAP) Take by mouth. [...] [E66.9] Anxiety state [F41.1] 05/11/2006 OSTEOARTHROS NOS-L/LEG [[id number]] 09/24/2008 Impaired Fasting Glucose [R73.01] 03/22/2010 Xerosis cutis [L85.3] 01/10/2013 Cracked skin [R23.4] 01/10/2013 Neurofibroma of back [D36.17] 01/10/2013 Intradermal nevus [D23.9] 01/10/2013 Acrochordon [L91.8] 01/10/2013 Pain in right hip [M25.551] 03/06/2019 Dizziness [R42] 10/23/2021 Status post right hip replacement [Z96.641] 10/23/2021 Hypertriglyceridemia [E78.1] 10/23/2021 Encounter Status:Closed by DEIDRA FLORES on 09/18/24 Normal [facility] 09-09-2024 CNOV Office Visit (PODIWS ) DODIE LI ([id number]) 1945 F Date Time Provider Department 09/09/24 11:15 AM VICTORIA ASHLEY During your visit today, we recorded the following information about you: Victoria Ashley 09/09/2024 11:38 AM Signed Subjective: Patient presents to clinic c/o painful toenails. They state that the nails are especially painful with shoe gear and pressure. Patient states that nails 1 b/l are painful. No other pedal complaints at this time. Patient states no change in medications or medical history since last visit. Objective: [facility] DP and PT pulses are [...] Victoria Ashley DPM Referring Provider: VICTORIA ASHLEY [[id number]] Allergies As of Date: 09/09/2024 Noted Allergy [...] Up [171] nail care [Other] Primary Visit Diagnosis:Onychomycosi s [B35.1] Other Visit Diagnoses:Pain in toe of left foot [M79.675] Pain in toe of right foot [M79.674] Prescriptions as of 09/09/2024 - doxepin capsule 10 mg Take 1 capsule by mouth daily at bedtime. - atenolol (TENORMIN) 50 mg tablet Take 1 tablet by mouth once daily. - atenolol (TENORMIN) 50 mg tablet Take 1 tablet by mouth once daily. - vit C/E/Zn/coppr/lutein/ze axan (PRESERVISION AREDS-2 ORAL) Take 1 tablet by [...] 1,000 mcg by mouth once daily. - JVHFRQH-XQIPIFKFR-JMND ORAL Take 1 tablet by mouth once daily. - guaifenesin/dextrometh orphan (MUCINEX DM ORAL) Take 1 tablet by mouth once daily as needed. - fexofenadine (LETICIA) 60 mg tablet Take 60 mg by mouth once daily as needed. - polyethylene glycol 3350 (MIRALAX) 17 gram/dose powder Take 17 g by mouth once daily. - aspirin, enteric coated (ASPIRIN, ENTERIC COATED) 81 mg EC tablet Take 81 mg by mouth once daily. - cholecalciferol(VITAMI N D 2,000 UNIT CAP) Take by mouth. [...] [G56.00] Ob (more content not included)... Normal [facility] 08-11-2024 [facility] Telephone (INTMWS) DODIE LI ([id number]) 1945 F Date Time Provider Department 08/11/24 ADEEL HAYES INTMWS During your visit today, we recorded the following information about you: Ariana Hernandez LPN 08/11/2024 10:04 AM Signed 1)Patient calling recently moved to assisted living at [facility]. She is asking if Dr Hayes makes [...] Signed 1) Can follow with patient at [facility] and round there as her PCP. She can still come to the office if she prefers. I think I completed forms for [facility] admission. 2) Okay to change Miralax to as needed. Can give verbal order to [facility] so they can send formal order for me to sign unless they need a printed order. Adeel Hayes MD 08/12/2024 8:25 PM Signed I wrote an order on fax from [facility] earlier today to change Miralax to once daily Ariana Fritz LPN 08/13/2024 10:37 AM Signed Phoned patient and call was hung up on. Try again later. Karin Osorio LPN 08/13/2024 2:43 PM Signed Left a message for pt to call the office and ask to speak to a nurse. MANJEET Tavares Krystle, RN 08/13/2024 3:39 PM Signed Patient returns call and message reviewed. Patient requests that provider come to [facility] to visit and let her know ahead of time so she is available. Patient also asking for orders to be able to manage OTC treatments such as band aids, polysporin, Tums, preparation H, and tylenol specifically as it frustrating to have to wait for 2-3 days on nursing staff to provide. Daniela Gordon, RN Adeel Hayes MD 08/13/2024 6:59 PM Signed 1) Noted RE; request to be seen at [facility] (instead of coming to office). Will try to notify ahead of time. Verify if there are days of the week that she is usually not available. 2) Wonder if the wait for those things was due to not having all her admission orders right away when was admitted. In any case, can give order to [facility] that she may have band aids, polysporin, TUMS and PrepH in her room to use as needed per package directions. Clarify dose of Tylenol that she has that wants to dose self as needed and [facility] if okay with order to self [...] will not cover Dr. Hayes. Spoke with [facility] nurse, Corina, and asked about the items [...] Fully Assessed Reason for Visit: Patient Question [9012] Orders [681] Prescriptions as of 08/15/2024 - doxepin capsule 10 mg Take 1 capsule by mouth daily at bedtime. - atenolol (TENORMIN) 50 mg tablet Take 1 tablet by mouth once daily. - atenolol (TENORMIN) 50 mg tablet Take 1 tablet by mouth once daily. - vit C/E/Zn/coppr/lutein/ze axan (PRESERVISION AREDS-2 ORAL) Take 1 tablet by [...] cap Take (more content not included)... Normal [facility] [facility] [facility] DODIE LI ([id number]) 1945 F Date Time Provider Department 07/30/24 ADEEL HAYES During your visit today, we recorded the following information about you: Janet Frias LPN 07/30/2024 4:13 PM Signed Kellie calling from [facility], she is requesting an order for admission to assisted living. Also asking when order is ready, to also fax face sheet, med list, HANDP AND ASHLEY to [phone]. MANJEET Rae Rosa, APRN.BUTTON [employer] INSTALLER 07/30/2024 4:16 PM Signed Please return call [...] tablet by mouth once daily. - vit C/E/Zn/coppr/lutein/ze axan (PRESERVISION AREDS-2 ORAL) Take 1 tablet by [...] 1,000 mcg by mouth once daily. - HKKVUHO-HDUXLAOKV-NVLE ORAL Take 1 tablet by mouth once daily. - guaifenesin/dextrometh orphan (MUCINEX DM ORAL) Take 1 tablet by mouth once daily as needed. - fexofenadine (LETICIA) 60 mg tablet Take 60 mg by mouth once daily as needed. - polyethylene glycol 3350 (MIRALAX) 17 gram/dose powder Take 17 g by mouth once daily. - aspirin, enteric coated (ASPIRIN, ENTERIC COATED) 81 mg EC tablet Take 81 mg by mouth once daily. - cholecalciferol(VITAMI N D 2,000 UNIT CAP) Take by mouth. [...] [E66.9] Anxiety state [F41.1] 05/11/2006 OSTEOARTHROS NOS-L/LEG [[id number]] 09/24/2008 Impaired Fasting Glucose [R73.01] 03/22/2010 Xerosis cutis [L85.3] 01/10/2013 Cracked skin [R23.4] 01/10/2013 Neurofibroma of back [D36.17] 01/10/2013 Intradermal nevus [D23.9] 01/10/2013 Acrochordon [L91.8] 01/10/2013 Pain in right hip [M25.551] 03/06/2019 Dizziness [R42] 10/23/2021 Status post right hip replacement [Z96.641] 10/23/2021 Hypertriglyceridemia [E78.1] 10/23/2021 Encounter Status:Closed by GISELE SHEEHAN on 08/08/24 [facility] Constanza 07-23-2024 MERARI Telephone (INTMWS) JADODIE ([id number]) 1945 F Date Time Provider Department 07/23/24 [...] down fluids in the evening. Destini Lee APRN.[employer] 07/28/2024 1:57 PM Signed Noted, she is [...] tablet by mouth once daily. - vit C/E/Zn/coppr/lutein/ze axan (PRESERVISION AREDS-2 ORAL) Take 1 tablet by [...] 1,000 mcg by mouth once daily. - KOJKINF-ZLQJVASYW-RDBA ORAL Take 1 tablet by mouth once daily. - guaifenesin/dextrometh orphan (MUCINEX DM ORAL) Take 1 tablet by mouth once daily as needed. - fexofenadine (LETICIA) 60 mg tablet Take 60 mg by mouth once daily as needed. - polyethylene glycol 3350 (MIRALAX) 17 gram/dose powder Take 17 g by mouth once daily. - aspirin, enteric coated (ASPIRIN, ENTERIC COATED) 81 mg EC tablet Take 81 mg by mouth once daily. - cholecalciferol(VITAMI N D 2,000 UNIT CAP) Take by mouth. [...] [E66.9] Anxiety state [F41.1] 05/11/2006 OSTEOARTHROS NOS-L/LEG [[id number]] 09/24/2008 Impaired Fasting Glucose [R73.01] 03/22/2010 Xerosis cutis [L85.3] 01/10/2013 Cracked skin [R23.4] 01/10/2013 Neurofibroma of back [D36.17] 01/10/2013 Intradermal nevus [D23.9] 01/10/2013 Acrochordon [L91.8] 01/10/2013 Pain in right hip [M25.551] 03/06/2019 Dizziness [R42] 10/23/2021 Status post right hip replacement [Z96.641] 10/23/2021 Hypertriglyceridemia [E78.1] 10/23/2021 Encounter Status:Closed by ARIANA HERNANDEZ on 07/31/24 Normal [facility] No Panel Informationon 09-18 Radiology Study observation (narrative) [facility] XR Hand - right PA and Later al and Obliqueon 09-18-2022 IMPRESSION: Distal radial and ulnar fractures. Medicare Compliance Auditor: KATE Transcribe Date/Time: Sep 18 2022 7:33P Dictated by : MONISHA CARVALHO MD This examination was interpreted and the report reviewed and electronically signed by: MONISHA CARVALHO MD on Sep 18 2022 7:35PM [facility] DIVISION OF RADIOLOGY * * [...] evidence of dislocation. DIVISION OF RADIOLOGY Provider, [facility] - 09/18/2022 * * *Final Report* * [...] IMPRESSION IMPRESSION: Distal radial and ulnar fractures. Medicare Compliance Auditor: KATE Transcribe Date/Time: Sep 18 2022 7:33P Dictated by : MONISHA CARVALHO MD This examination was interpreted and the report reviewed and electronically signed by: MONISHA CARVALHO MD on Sep 18 2022 7:35PM EST [facility] XR Pelvis and Hip - right AP and Lateral frogon 09-18-2022 IMPRESSION: No acute osseous abnormalities are identified. Medicare Compliance Auditor: [facility] Transcribe Date/Time: Sep 18 2022 7:37P Dictated [...] the thoracic spine. DIVISION OF RADIOLOGY [facility] * * *Final Report* [...] IMPRESSION: No acute osseous abnormalities are identified. Medicare Compliance Auditor: [facility] Transcribe Date/Time: Sep 18 2022 7:37P Dictated by : MONISHA CARVALHO MD This examination was interpreted and the report reviewed and electronically signed by: MONISHA CARVALHO MD on Sep 18 2022 7:39PM EST [facility] XR Radius and Ulna - right A P and Lateralon 09-18-2022 IMPRESSION: Distal radial and ulnar fractures. Medicare Compliance Auditor: [facility] Transcribe Date/Time: Sep 18 2022 7:35P Dictated [...] spaces appear unremarkable. DIVISION OF RADIOLOGY Provider, [facility] - 09/18/2022 * * *Final Report* * [...] IMPRESSION IMPRESSION: Distal radial and ulnar fractures. Medicare Compliance Auditor: [facility] Transcribe Date/Time: Sep 18 2022 7:35P Dictated by : MONISHA CARVALHO MD This examination was interpreted and the report reviewed and electronically signed by: MONISHA CARVALHO MD on Sep 18 2022 7:37PM [facility] XR Sacrum and Coccyx 3 Views on 09-18-2022 IMPRESSION: No acute osseous abnormalities are identified. Medicare Compliance Auditor: KATE Transcribe Date/Time: Sep 18 2022 7:40P Dictated by : MONISHA CARVALHO MD This examination was interpreted and the report reviewed and electronically signed by: MONISHA CARVALHO MD on Sep 18 2022 7:42PM [facility] DIVISION OF RADIOLOGY * * [...] involve the aorta. DIVISION OF RADIOLOGY Provider, [facility] - 09/18/2022 * * *Final Report* * [...] IMPRESSION: No acute osseous abnormalities are identified. Medicare Compliance Auditor: KATE Transcribe Date/Time: Sep 18 2022 7:40P Dictated by : MONISHA CARVALHO MD This examination was interpreted and the report reviewed and electronically signed by: MONISHA CARVALHO MD on Sep 18 2022 7:42PM EST [facility] Shoulder - right 2 Viewso n 09-18-2022 IMPRESSION: No acute osseous abnormalities are identified. Medicare Compliance Auditor[facility] Transcribe Date/Time: Sep 18 2022 7:31P Dictated [...] changes are noted. DIVISION OF RADIOLOGY Provider, [facility] - 09/18/2022 * * *Final Report* * [...] IMPRESSION: No acute osseous abnormalities are identified. Medicare Compliance Auditor: [facility] Transcribe Date/Time: Sep 18 2022 7:31P Dictated by : MONISHA CARVALHO MD This examination was interpreted and the report reviewed and electronically signed by: MONISHA CARVALHO MD on Sep 18 2022 7:32PM EST [facility] XR Shoulder - right 2 ViewsO rdered By: Cc Provider on 09-18-[address] [facility] Basic metabolic 2000 panelon 03-25-2022 Anion gap [Moles/Vol] 13 mmol/L 9 - 18 mmol/L [facility] Calcium [Mass/Vol] 10.1 mg/dL 8.5 - 10. 2 mg/dL [facility] Chloride [Moles/Vol] 101 mmol/L 97 - 10 5 mmol/L [facility] CO2 [Moles/Vol] 26 mmol/L 22 - 30 mmol/L [facility] Creatinine [Mass/Vol] 0.66 mg/dL 0.58 - 0.96 mg/dL [facility] Estimated Glomerular Filtration Rate 92 mL/min/1.73m >=60 mL/min/1.73m [facility] Glucose [Mass/Vol] 95 mg/dL 74 - 99 mg/dL [facility] Potassium [Moles/Vol] 3.5 mmol/L Low 3.7 - 5.1 mmol/L [facility] Sodium [Moles/Vol] 140 mmol/L 136 - 144 mmol/L [facility] Urea nitrogen [Mass/Vol] 17 mg/dL 7 - 21 mg/dL [facility] Vital Signs Date Time Vital Sign Value Performing Clinician Luci [email or web address] 06-09-2025 12:59-0400 Body height 149.2 cm Malu Townsend APRN.MERARI Work Phone: [facility] 06-09-2025 12:59-0400 Body mass index (BMI) [Ratio] 37.36 kg/m2 Malu Townsend APRN.[employer] Work Phone: [facility] 06-09-2025 12:59-0400 Body weight 83.2 kg Malu Townsend APRN.[employer]ER Work Phone: [facility] 06-09-2025 12:59-0400 Diastolic blood pressure 55 mm[Hg] Malu Townsend APRN.[employer]ER Work Phone: [facility] 06-09-2025 12:59-0400 Heart rate 74 /min Malu Townsend APRN.[employer]ER Work Phone: [facility] 06-09-2025 12:59-0400 Respiratory rate 16 /min Malu Townsend APRN.[employer]ER Work Phone: [facility] 06-09-2025 12:59-0400 SaO2% (BldA) [Mass fraction] 96 % Malu Townsend APRN.[employer]ER Work Phone: [facility] 06-09-2025 12:59-0400 Systolic blood pressure 95 mm[Hg] Malu CatalanKristian [employer]VER [employer]ER Work Phone: [facility] 04-15-2025 15:13-0400 Body height 148.5 cm Destini Alejandra [employer]ER Work Phone: [facility] 04-15-2025 15:13-0400 Body mass index (BMI) [Ratio] 37.31 kg/m2 Destini Alejandra [employer]ER Work Phone: [facility] 04-15-2025 15:13-0400 Body weight 82.3 kg Destini Alejandra [employer]ST[employer]ER Work Phone: [facility] 04-15-2025 15:13-0400 Diastolic blood pressure 70 mm[Hg] Destini Alejandra [employer]ER Work Phone: [facility] 04-15-2025 15:13-0400 Heart rate 70 /min Destini Alejandra [employer]ST[employer]ER Work Phone: [facility] 04-15-2025 15:13-0400 Systolic blood pressure 102 mm[Hg] Destini Alejandra [employer]ER Work Phone: [facility] 07-09-2024 14:39-0400 Body mass index (BMI) [Ratio] 36.19 kg/m2 Adeel Hayes MD Work Phone: [facility] 07-09-2024 14:39-0400 Body temperature 98.49 [degF] Adeel Hayes MD Work Phone: [facility] 07-09-2024 14:39-0400 Body weight 79.8 kg Adeel Hayes MD Work Phone: [facility] 07-09-2024 14:39-0400 Diastolic blood pressure 68 mm[Hg] Adeel Hayes MD Work Phone: [facility] 07-09-2024 14:39-0400 Heart rate 67 /min Adeel Hayes MD Work Phone: [facility] 07-09-2024 14:39-0400 Respiratory rate 16 /min Adeel Hayes MD Work Phone: [facility] 07-09-2024 14:39-0400 SaO2% (BldA) [Mass fraction] 99 % Adeel Hayes MD Work Phone: [facility] 07-09-2024 14:39-0400 Systolic blood pressure 118 mm[Hg] Adeel Hayes MD Work Phone: [facility] 06-23-2024 12:59-0400 Body mass index (BMI) [Ratio] 36.14 kg/m2 Destini Alejandra [employer]ST[employer]ER Work Phone: [facility] 06-23-2024 12:59-0400 Body weight 79.7 kg Destini Alejandra [employer]ST[employer]ER Work Phone: [facility] 06-23-2024 12:59-0400 Diastolic blood pressure 64 mm[Hg] Destini Alejandra [employer]ST[employer]ER Work Phone: [facility] 06-23-2024 12:59-0400 Heart rate 72 /min Destini Alejandra [employer]ST[employer]ER Work Phone: [facility] 06-23-2024 12:59-0400 SaO2% (BldA) [Mass fraction] 96 % Destini Alejandra [employer]ST[employer]ER Work Phone: [facility] 06-23-2024 12:59-0400 Systolic blood pressure 118 mm[Hg] Destini Alejandra [employer]ST[employer]ER Work Phone: [facility] 05-28-2024 15:12-0400 Body height 148.5 cm Adeel Hayes MD Work Phone: [facility] 05-28-2024 15:12-0400 Body mass index (BMI) [Ratio] 36.05 kg/m2 Adeel Hayes MD Work Phone: [facility] 05-28-2024 15:12-0400 Body temperature 97.7 [degF] Adeel Hayes MD Work Phone: [facility] 05-28-2024 15:12-0400 Body weight 79.5 kg Adeel Hayes MD Work Phone: [facility] 05-28-2024 15:12-0400 Diastolic blood pressure 82 mm[Hg] Adeel Hayes MD Work Phone: [facility] 05-28-2024 15:12-0400 Heart rate 68 /min Adeel Hayes MD Work Phone: [facility] 05-28-2024 15:12-0400 Respiratory rate 16 /min Adeel Hayes MD Work Phone: [facility] 05-28-2024 15:12-0400 SaO2% (BldA) [Mass fraction] 98 % Adeel Hayes MD Work Phone: [facility] 05-28-2024 15:12-0400 Systolic blood pressure 128 mm[Hg] Adeel Hayes MD Work Phone: [facility] 03-12-2024 09:44-0400 Body mass index (BMI) [Ratio] 33.44 kg/m2 Adeel Hayes MD Work Phone: [facility] 03-12-2024 09:44-0400 Body temperature 98.01 [degF] Adeel Hayes MD Work Phone: [facility] 03-12-2024 09:44-0400 Body weight 80.29 kg Adeel Hayes MD Work Phone: [facility] 03-12-2024 09:44-0400 Diastolic blood pressure 62 mm[Hg] Adeel Hayes MD Work Phone: [facility] 03-12-2024 09:44-0400 Heart rate 61 /min Adeel Hayes MD Work Phone: [facility] 03-12-2024 09:44-0400 Respiratory rate 18 /min Adeel Hayes MD Work Phone: [facility] 03-12-2024 09:44-0400 SaO2% (BldA) [Mass fraction] 98 % Adeel Hayes MD Work Phone: [facility] 03-12-2024 09:44-0400 Systolic blood pressure 112 mm[Hg] Adeel Hayes MD Work Phone: [facility] 02-12-2024 11:14-0400 Body mass index (BMI) [Ratio] 33.25 kg/m2 Destini Alejandra [employer]ER Work Phone: [facility] 02-12-2024 11:14-0400 Body weight 79.83 kg Destini Alejandra [employer]ST[employer]ER Work Phone: [facility] 02-12-2024 11:14-0400 Diastolic blood pressure 64 mm[Hg] Destini Alejandra [employer]ST[employer]ER Work Phone: [facility] 02-12-2024 11:14-0400 Heart rate 71 /min Destini Alejandra [employer]ST[employer]ER Work Phone: [facility] 02-12-2024 11:14-0400 SaO2% (BldA) [Mass fraction] 97 % Destini Alejandra [employer]STALLER Work Phone: [facility] 02-12-2024 11:14-0400 Systolic blood pressure 110 mm[Hg] Destini Alejandra [employer]ST[employer]ER Work Phone: [facility] 11-30-2023 09:53-0500 Body weight 82.83 kg Adeel Hayes MD Work Phone: [facility] 11-30-2023 09:53-0500 Diastolic blood pressure 68 mm[Hg] Adeel Hayes MD Work Phone: [facility] 11-30-2023 09:53-0500 Heart rate 64 /min Adeel Hayes MD Work Phone: [facility] 11-30-2023 09:53-0500 Respiratory rate 16 /min Adeel Hayes MD Work Phone: [facility] 11-30-2023 09:53-0500 SaO2% (BldA) [Mass fraction] 97 % Adeel Hayes MD Work Phone: [facility] 11-30-2023 09:53-0500 Systolic blood pressure 108 mm[Hg] Adeel Hayes MD Work Phone: [facility] 09-18-2023 10:38-0500 Body temperature 98.01 [degF] Adeel Hayes MD Work Phone: [facility] 09-18-2023 10:38-0500 Body weight 83.92 kg Adeel Hayes MD Work Phone: [facility] 09-18-2023 10:38-0500 Heart rate 61 /min Adeel Hayes MD Work Phone: [facility] 09-18-2023 10:38-0500 Respiratory rate 18 /min Adeel Hayes MD Work Phone: [facility] 09-18-2023 10:38-0500 SaO2% (BldA) [Mass fraction] 97 % Adeel Hayes MD Work Phone: [facility] 03-10-2023 09:43-0400 Body weight 82.46 kg Adeel Hayes MD Work Phone: [facility] 03-10-2023 09:43-0400 Diastolic blood pressure 76 mm[Hg] Adeel Hayes MD Work Phone: [facility] 03-10-2023 09:43-0400 Heart rate 60 /min Adeel Hayes MD Work Phone: [facility] 03-10-2023 09:43-0400 Respiratory rate 16 /min Adeel Hayes MD Work Phone: [facility] 03-10-2023 09:43-0400 Systolic blood pressure 130 mm[Hg] Adeel Hayes MD Work Phone: [facility] 11-17-2022 13:34-0500 Body temperature 97.81 [degF] Griselda Smiley APRN.[employer]ER Work Phone: [facility] 11-17-2022 13:34-0500 Diastolic blood pressure 74 mm[Hg] Griselda Smiley [employer]ST[employer]ER Work Phone: [facility] 11-17-2022 13:34-0500 Heart rate 68 /min Griselda Baljit [employer]ST[employer]ER Work Phone: [facility] 11-17-2022 13:34-0500 Respiratory rate 18 /min Griselda Baljit [employer]ER Work Phone: [facility] 11-17-2022 13:34-0500 SaO2% (BldA) [Mass fraction] 96 % Griselda Baljit [employer]STALLER Work Phone: [facility] 11-17-2022 13:34-0500 Systolic blood pressure 136 mm[Hg] Griselda Smiley [employer]ST[employer]ER Work Phone: [facility] 10-04-2022 13:36-0500 Body temperature 98.8 [degF] Adeel Hayes MD Work Phone: [facility] 10-04-2022 13:36-0500 Diastolic blood pressure 78 mm[Hg] Adeel Hayes MD Work Phone: [facility] 10-04-2022 13:36-0500 Heart rate 69 /min Adeel Hayes MD Work Phone: [facility] 10-04-2022 13:36-0500 Respiratory rate 18 /min Adeel Hayes MD Work Phone: [facility] 10-04-2022 13:36-0500 SaO2% (BldA) [Mass fraction] 96 % Adeel Hayes MD Work Phone: [facility] 10-04-2022 13:36-0500 Systolic blood pressure 126 mm[Hg] Adeel Hayes MD Work Phone: [facility] 09-28-2022 10:35-0500 Body temperature 98.4 [degF] Melina Doan APRN.[employer]ER Work Phone: [facility] 09-28-2022 10:35-0500 Diastolic blood pressure 82 mm[Hg] Melina Doan APRN.[employer]ER Work Phone: [facility] 09-28-2022 10:35-0500 Heart rate 70 /min Melina Doan APRN.[employer]ER Work Phone: [facility] 09-28-2022 10:35-0500 Respiratory rate 18 /min Melina Doan APRN.[employer]ER Work Phone: [facility] 09-28-2022 10:35-0500 SaO2% (BldA) [Mass fraction] 97 % Melina Doan APRN.[employer]ER Work Phone: [facility] 09-28-2022 10:35-0500 Systolic blood pressure 138 mm[Hg] Melina Doan APRN.[employer]ER Work Phone: [facility] 09-18-2022 17:42-0500 Body temperature 98.29 [degF] Melina Doan APRN.[employer]ER Work Phone: [facility] 09-18-2022 17:42-0500 Body weight 83.19 kg Melina Doan APRN.[employer]ER Work Phone: [facility] 09-18-2022 17:42-0500 Diastolic blood pressure 72 mm[Hg] Melina Doan APRN.[employer]ER Work Phone: [facility] 09-18-2022 17:42-0500 Heart rate 70 /min Melina Doan APRN.[employer]ER Work Phone: [facility] 09-18-2022 17:42-0500 Respiratory rate 21 /min Melina Doan APRN.[employer]ER Work Phone: [facility] 09-18-2022 17:42-0500 SaO2% (BldA) [Mass fraction] 94 % Melina Doan APRN.[employer]ER Work Phone: [facility] 09-18-2022 17:42-0500 Systolic blood pressure 124 mm[Hg] Melina Doan APRN.[employer]ER Work Phone: [facility] 08-14-2022 11:05-0500 Body weight 83.46 kg Adeel Hayes MD Work Phone: [facility] 08-14-2022 11:05-0500 Diastolic blood pressure 82 mm[Hg] Adeel Hayes MD Work Phone: [facility] 08-14-2022 11:05-0500 Heart rate 66 /min Adeel Hayes MD Work Phone: [facility] 08-14-2022 11:05-0500 SaO2% (BldA) [Mass fraction] 99 % Adeel Hayes MD Work Phone: [facility] 08-14-2022 11:05-0500 Systolic blood pressure 126 mm[Hg] Adeel Hayes MD Work Phone: [facility] 03-24-2022 15:01-0400 Body weight 83.46 kg Adeel Hayes MD Work Phone: [facility] 03-24-2022 15:01-0400 Diastolic blood pressure 64 mm[Hg] Adeel Hayes MD Work Phone: [facility] 03-24-2022 15:01-0400 Heart rate 65 /min Adeel Hayes MD Work Phone: [facility] 03-24-2022 15:01-0400 SaO2% (BldA) [Mass fraction] 95 % Adeel Hayes MD Work Phone: [facility] 03-24-2022 15:01-0400 Systolic blood pressure 108 mm[Hg] Adeel Hayes MD Work Phone: [facility] Encounters Encounter Date Encounter Type Care Provider Facility Start: 2025 ambulatory Adeel Hayes Facilit y:[facility] Start: 07-14-2025 ambulatory Adeel Hayes Facilit y:[facility] Start: 07-01-2025 End: 07-01-2025 ambulatory Adeel Hayes OLS Facility:[facility] Start: 06-16-2025 End: 06-19-2025 Telephone encounter Adeel Hayes MD Work Phone: [facility] [place] Comment on above: Medication Request Start: 06-12-2025 End: 06-12-2025 Telephone encounter Adeel Hayes MD Work Phone: [facility] [place] Comment on above: Results Start: 06-09-2025 End: 06-09-2025 ambulatory MALU TOWNSEND Facility:[facility] Start: 06-09-2025 End: 06-09-2025 Office outpatient visit 25 minutes Malu Townsend [employer]ER Work Phone: [facility] [place] Comment on above: Medicare annual well ness visit, subsequent (Primary Dx); Hypotension, unspecified hypotension type; Intertrigo; Malaise; Episodic lightheadedness; Anemia, unspecified type; Asymptomatic menopause; Memory impairment Start: 06-09-2025 End: 06-09-2025 ambulatory MALU Rey KRISTIAN Facility:[facility] Start: 06-09-2025 End: 06-09-2025 Patient encounter procedure Malu Townsend [employer]ER Work Phone: [facility] Start: 04-23-2025 End: 04-30-2025 Telephone encounter Adeel Hayes MD Work Phone: [facility] [place] Comment on above: Patient Update Start: 04-15-2025 End: 04-15-2025 Patient encounter procedure Destini Lee [employer]ER Work Phone: [facility] [place] Comment on above: Essential (primary) hypertension; Dizziness and giddiness; Bilateral age-related macular degeneration; Adjustment disorder with mixed anxiety and depressed mood Start: 04-15-2025 End: 04-15-2025 ambulatory DESTINI LEE Facility:[facility] Start: 04-14-2025 End: 04-15-2025 Telephone encounter Adeel Hayes MD Work Phone: [facility] [place] Comment on above: Patient Update Start: 04-09-2025 End: 04-09-[address] Adeel Hayes MD Work Phone: -[facility] Start: 04-09-2025 End: 04-09-2025 Departed Referred Adeel Hayes MD -[facility] Demetra Brown Start: 04-09-2025 End: 04-09-2025 ambulatory Adeel LAUGHLIN Facility:[facility] Start: 04-07-2025 End: 04-08-2025 Telephone encounter Adeel Hayes MD Work Phone: [facility] [place] Comment on above: Patient Question Start: 03-30-2025 End: 04-02-2025 Telephone encounter Adeel Hayes MD Work Phone: [facility] [place] Comment on above: Orders Start: 02-10-2025 End: 02-10-2025 Patient encounter procedure Victoria Dumontguy Work Phone: Podiatry Comment on above: Onychomycosis (Prima ry Dx); Pain in toe of left foot; Pain in toe of right foot; Callus of foot; Hammer toe of right foot Start: 02-10-2025 End: 02-10-2025 ambulatory VICTORIA GABI Facility:[facility] Start: 01-26-2025 End: 01-27-2025 Telephone encounter Adeel Hayes MD Work Phone: [facility] [place] Comment on above: Electronic Communica tion ([facility]) Start: 01-06-2025 ambulatory Adeel LAUGHLIN Fac ility:[facility] Start: 12-23-2024 End: 12-24-2024 Telephone encounter Adeel Hayes MD Work Phone: [facility] [place] Comment on above: report a fall on 12/06 Start: 12-16-2024 End: 12-16-2024 Home visit Adeel Hayes MD Work Phone: [facility] [place] Comment on above: Anxiety disorder, un specified type (Primary Dx) Start: 11-25-2024 End: 11-26-2024 Telephone encounter Adeel Hayes MD Work Phone: [facility] [place] Comment on above: verbal orders Start: 11-18-2024 End: 11-18-2024 Telephone encounter Adeel Hayes MD Work Phone: Family [facility] [place] Comment on above: Forms Start: 11-13-2024 End: 11-14-2024 Telephone encounter Adeel Hayes MD Work Phone: [facility] [place] Comment on above: [facility]- verbal orders needed Start: 11-03-2024 End: 11-03-2024 Refill Adeel Hayes MD Work Phone: [facility] [place] Comment on above: Refill Request Start: 10-29-2024 End: 11-04-2024 Telephone encounter Adeel Hayes MD Work Phone: [facility] [place] Comment on above: Patient Request Start: 09-25-2024 End: 10-06-2024 Telephone encounter Adeel Hayes MD Work Phone: [facility] [place] Comment on above: Patient Question Start: 09-16-2024 End: 09-22-2024 Telephone encounter Adeel Hayes MD Work Phone: [facility] [place] Comment on above: Provider takes insur ance Orders Start: 09-09-2024 End: 09-09-2024 ambulatory VICTORIA ASHLEY Facility:[facility] Start: 09-09-2024 End: 09-09-2024 Patient encounter procedure Victoria Harveyguy Work Phone: Podiatry Comment on above: Onychomycosis (Prima ry Dx); Pain in toe of left foot; Pain in toe of right foot Start: 08-11-2024 End: 08-15-2024 Telephone encounter Adeel Hayes MD Work Phone: [facility] [place] Comment on above: Patient Question; Or ders Start: 07-30-2024 End: 08-08-2024 Telephone encounter Adeel Hayes MD Work Phone: [facility] [place] Comment on above: Orders for admission Start: 07-23-2024 End: 07-31-2024 Telephone encounter Adeel Hayes MD Work Phone: [facility] [place] Comment on above: Patient Update Start: 07-18-2024 End: 08-04-2024 Telephone encounter Adeel Hayes MD Work Phone: [facility] [place] Comment on above: Patient Update; Jesica ent Question Start: 07-16-2024 End: 07-16-2024 Telephone encounter Adeel Hayes MD Work Phone: [facility] [place] Comment on above: Patient Update Start: 07-14-2024 End: 07-14-2024 Telephone encounter Adeel Hayes MD Work Phone: [facility] [place] Comment on above: Patient Question Start: 07-12-2024 End: 07-12-2024 ambulatory Marjorie Aviles RN NURSE [employer]DRAMAT[employer]CHANIC Comment on above: Medication Question Start: 07-10-2024 End: 07-21-2024 Telephone encounter Adeel Hayes MD Work Phone: [facility] [place] Comment on above: Medication Problem Insurance Authorizat ion Start: 07-09-2024 End: 07-09-2024 Office outpatient visit 25 minutes Adeel Hayes MD Work Phone: [facility] [place] Comment on above: Balance problem (Helen kai Dx); Frequent falls; Essential hypertension; Benign paroxysmal positional vertigo, unspecified laterality; Nocturia more than twice per night; Vision impairment; Encounter for immunization Start: 07-04-2024 End: 07-04-2024 Telephone encounter Adeel Hayes MD Work Phone: [facility] [place] Comment on above: Opened In Error Patient Question Start: 06-23-2024 End: 06-23-2024 Telephone encounter Adeel Hayes MD Work Phone: [facility] [place] Comment on above: Patient Question referral to [facility] Start: 06-23-2024 End: 06-23-2024 Patient encounter procedure Destini Lee APRN.BUTTON MAKER AND INSTALLER Work Phone: Internal [facility] [place] Comment on above: Sleep disturbance (P rimary Dx); Repeated falls; Situational mixed anxiety and depressive disorder; Diarrhea, unspecified type Start: 06-10-2024 End: 06-13-2024 Telephone encounter Adeel Hayes MD Work Phone: [facility] [place] Comment on above: Patient Question Start: 05-28-2024 End: 05-28-2024 Patient encounter procedure Adeel Hayes MD Work Phone: [facility] [place] Comment on above: Medicare annual well ness visit, subsequent (Primary Dx); Gait instability; Essential hypertension; Hypokalemia; Hypertriglyceridemia Start: 05-06-2024 Refill Adeel purvis MD Work Phone: [facility] [place] Comment on above: Refill Request Start: 04-22-2024 Telephone encounter Adeel alcantara MD Work Phone: [facility] [place] Comment on above: Patient Question Start: 04-08-2024 End: 04-08-2024 Patient encounter procedure Victoria Gabi Work Phone: Podiatry Comment on above: Onychomycosis (Prima ry Dx); Pain in toe of left foot; Pain in toe of right foot Start: 03-24-2024 Telephone encounter Adeel alcantara MD Work Phone: [facility] [place] Comment on above: Results Start: 03-21-2024 Home visit Adeel purvis MD Work Phone: [facility] [place] Comment on above: Aftercare following joint replacement surgery, unspecified joint (Primary Dx) Start: 03-13-2024 Refill Adeel purvis MD Work Phone: [facility] [place] Comment on above: Refill Request Start: 03-12-2024 End: 03-12-2024 Office outpatient visit 25 minutes Adeel Hayes MD Work Phone: [facility] [place] Comment on above: 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); Situational mixed anxiety and depressive disorder; Gait instability; Essential hypertension; Hypokalemia; Screening for colon cancer; Encounter for immunization Start: 02-15-2024 Telephone encounter Ashley Finn Start: 02-12-2024 End: 02-12-2024 Patient encounter procedure Destini Lee APRN.CNP Work Phone: [facility] [place] Comment on above: Situational mixed an xiety and depressive disorder (Primary Dx); Macular degeneration of both eyes, unspecified type Start: 01-17-2024 Telephone encounter Adeel alcantara MD Work Phone: [facility] [place] Comment on above: Patient Question Start: 12-21-2023 ambulatory Gauri Mcleod MA [facility] [place] Comment on above: Population Health Na vigation Outreach ([employer] care gaps) Start: 12-18-2023 End: 12-18-2023 Patient encounter procedure Victoria Ashley Work Phone: Podiatry Comment on above: Onychomycosis (Prima ry Dx); Pain in toe of left foot; Pain in toe of right foot Start: 12-06-2023 Telephone encounter Adeel alcantara MD Work Phone: [facility] [place] Comment on above: Patient Update Start: 11-30-2023 End: 11-30-2023 Office outpatient visit 25 minutes Adeel Hayse MD Work Phone: [facility] [place] Comment on above: Gait instability (Pr imary Dx); Status post right hip replacement; Asymptomatic postmenopausal status Start: 10-29-2023 Telephone encounter Adeel alcantara MD Work Phone: [facility] [place] Comment on above: Letter Start: 09-18-2023 End: [...] of right foot Start: 08-31-2023 Refill Destini ALLENN.BUTTON MAKER AND INSTALLER Work Phone: [facility] Comment on above: Refill Request Start: 08-14-2023 Telephone encounter Adeel alcantara MD Work Phone: [facility] Comment on above: patient questions Start: 08-07-2023 Refill Adeel purvis MD Work Phone: [facility] [place] Comment on above: Refill Request Start: 06-08-2023 Refill Adeel purvis MD Work Phone: [facility] [place] Comment on above: Refill Request; Refi ll Request Start: 05-21-2023 End: 05-21-2023 Patient encounter procedure Victoria Ashley Work Phone: Podiatry Comment on above: Onychomycosis (Prima ry Dx); Toenail deformity; Pain in toe of left foot; Pain in toe of right foot Start: 03-26-2023 Telephone encounter Adeel alcantara MD Work Phone: Internal [facility] [place] Comment on above: Referral Request Start: 03-10-2023 End: 03-10-2023 Office outpatient visit 25 minutes Adeel Hayes MD Work Phone: Internal [facility] Comment on above: 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); Candidal intertrigo; Essential hypertension; Class 1 obesity due to excess calories without serious comorbidity with body mass index (BMI) of 34.0 to 34.9 in adult; Screening for colon cancer Start: 02-20-2023 Telephone encounter Adeel alcantara MD Work Phone: [facility] Comment on above: Medication Question Start: 02-12-2023 Telephone encounter Adeel alcantara MD Work Phone: Internal [facility] Comment on above: Medication Question; Constipation Start: 02-01-2023 ambulatory Adeel purvis MD Work Phone: Internal [facility] Comment on above: Insect Bite Start: 01-08-2023 Non-patient / Non-visit [facility]. Samantha [facility] Start: 01-08-2023 End: 01-08-[address] Adeel Hayes Work Phone: [facility] Work Phone: Start: 01-08-2023 End: 01-08-[address] Adeel Hayes Work Phone: [facility]-Pulmonary Services/Neurology Start: 12-20-2022 Refill Adeel purvis MD Work Phone: [facility] [place] Comment on above: Refill Request Start: 12-12-2022 Refill Adeel purvis MD Work Phone: [facility] [place] Comment on above: Refill Request Start: 11-22-2022 Telephone encounter Adeel alcantara MD Work Phone: [facility] [place] Comment on above: Medication Question Start: 11-17-2022 End: 11-17-2022 Patient encounter procedure Griselda Smiley BUTTON MAKER AND INSTALLER Work Phone: [facility] Comment on above: Itching (Primary Dx) Start: 11-14-2022 Telephone encounter Adeel alcantara MD Work Phone: [facility] [place] Comment on above: Pain Start: 10-26-2022 Telephone encounter Adeel alcantara MD Work Phone: [facility] [place] Comment on above: requesting medicatio n (yeast infection) Start: 10-05-2022 Telephone encounter Ashley ESTRADA [facility] [place] Comment on above: Patient Question Start: 10-04-2022 End: 10-04-2022 Office outpatient visit 25 minutes Adeel Hayes MD Work Phone: [facility] [place] Comment on above: Candidal intertrigo (Primary Dx); [place] eye disease of both eyes; Closed fracture of right upper extremity, sequela Start: 09-29-2022 Telephone encounter Adeel alcantara MD Work Phone: [facility] [place] Comment on above: Patient Question Orders Start: 09-28-2022 Telephone encounter Adeel alcantara MD Work Phone: [facility] [place] Comment on above: Patient Question Start: 09-28-2022 End: 09-28-2022 Patient encounter procedure Melina Doan APRN.BUTTON MAKER AND INSTALLER Work Phone: [facility] Comment on above: Skin rash (Primary D x) Start: 09-22-2022 Telephone encounter Adeel alcantara MD Work Phone: [facility] [place] Comment on above: Patient Question; Pa tient Update Start: 09-19-2022 Telephone encounter Jean Letty Wagner DO Work Phone: Radiology Comment on above: Patient Question Start: 09-18-2022 End: 09-18-2022 Subsequent hospital visit by physician Sachin [facility] [place] Work Phone: Radiology Comment on above: Pain [R52] Start: 09-18-2022 End: 09-18-2022 Patient encounter procedure Melina Doan APRN.BUTTON MAKER AND INSTALLER Work Phone: [facility] [facility] Comment on above: Pain (Primary Dx) Start: 08-18-2022 Refill Adeel purvis MD Work Phone: [facility] [place] Comment on above: Refill Request Start: 08-16-2022 ambulatory Adeel purvis MD Work Phone: [facility] [place] Comment on above: Flu Shot reaction Start: [...] Refill Adeel purvis MD Work Phone: [facility] [place] Comment on above: Refill Request Start: 03-28-2022 Refill Adele purvis MD Work Phone: [facility] [place] Comment on above: Refill Request Results, Lab Start: 03-24-2022 End: 03-24-2022 Office outpatient visit 25 minutes Adeel Hayes MD Work Phone: [facility] [place] Comment on above: Essential hypertensi on (Primary Dx); Persistent disorder of initiating or maintaining sleep; Vitamin D deficiency; Hypokalemia; Varicose veins of both lower extremities, unspecified whether complicated; Hearing difficulty of both ears Start: 01-31-2022 Telephone encounter Adeel alcantara MD Work Phone: [facility] [place] Comment on above: Patient Question Start: 01-09-2022 Telephone encounter Adeel alcantara MD Work Phone: [facility] [place] Comment on above: Medication Question Start: 12-30-2021 Refill Adeel purvis MD Work Phone: [facility] [place] Comment on above: Refill Request Patient Question Procedures Date Procedure Procedure Detail Performing Clinician Start: 04-09-2025 Vitamin D, 25-hydrox y measurement Dr. Adeel Hayes MD Work Phone: Comment on above: Vitamin D StatusDefi ciency: <20 ng/mL (50nmol/L)Insufficiency: 20-30 ng/mL (50-75 nmol/L)Sufficiency: 30-100 ng/mL (75-250 nmol/L)Toxicity: >100 ng/mL (>250 nmol/L) Start: 09-18-2023 INFLUENZA VACCINE, P RSV FREE, AGE 65+ YR, HIGH DOSE, QUADRIVALENT (FLUZONE HIGH-DOSE) Adeel Hayes MD Work Phone: Start: 09-18-2022 Radex forearm 2 homa Doan APRN.CNP Work Phone: Start: 08-14-2022 INFLUENZA SEASONAL QUADRIVALENT HIGH DOSE AGE 65+ Adeel Hayes MD Work Phone: H/O: artificial joint Aftercare following joint replacement surgery, unspecified joint Adeel Hayes MD Work Phone: H/O: surgery S/P anal fissurectomy Plan of Treatment Date Care Activity Detail Author Start: 06-09-2028 Diabetes Screening Diabetes Screening [facility] Start: 03-12-2027 Diabetes Screening Diabetes Screening [facility] Start: 01-18-2027 LIPID SCREEN LIPID SCREEN [facility] Start: 06-09-2026 Annual PCP Team Chronic Disease Visit Annual PCP Team Chronic Disease Visit [facility] Start: 06-09-2026 RSV Vaccine (1 - 1-dose 75+ series) RSV Vaccine (1 - 1-dose 75+ series) [facility] Comment on above: Postponed from 2021 (Declined at t his time) Start: 06-09-2026 Shingrix Vaccine (2 of 3) Shingrix Vaccine (2 of 3) [facility] Comment on above: Postponed from 11/21/2012 (Declined at t his time) Start: 06-09-2026 Urine microalbumin profile DTaP,Tdap,Td Vaccine (2 - Td or Tdap) [facility] Comment on above: Postponed from 09/27/2022 (Declined at t his time) Start: 04-15-2026 Annual PCP Team Chronic Disease Visit Annual PCP Team Chronic Disease Visit [facility] Start: 03-09-2026 DIABETES SCREEN DIABETES SCREEN [facility] Start: 03-09-2026 Diabetes Screening Diabetes Screening [facility] Start: 03-01-2026 LIPID SCREEN LIPID SCREEN [facility] Start: 12-16-2025 End: 12-16-2025 Patient encounter procedure 12/16/2025 3:00 PM EDT Office Visit [facility] [place] [address] [place], [place] [id number] Adeel Hayes MD [address] [place] [id number] 6 Month follow up [facility] [place] Comment on above: 6 Month follow up Start: 09-18-2025 End: 09-18-2025 Patient encounter procedure 09/18/2025 1:40 PM EST Appointment Radiology [address] [place] [id number] Asymptomatic menopause [Z78.0] Radiology Comment on above: Asymptomatic menopause [Z78.0] Start: 07-09-2025 Annual PCP Team Chronic Disease Visit Annual PCP Team Chronic Disease Visit [facility] Start: 07-09-2025 BP Controlled (<130/80) BP Controlled (<130/80) [facility] Start: 07-07-2025 End: 07-07-2025 Patient encounter procedure 07/07/2025 1:40 PM EDT Office Visit [facility] [place] [address] [place] [address] Malu Townsend, ENGRAVER [employer].BUTTON MAKER AND INSTALLER [address] [place] [address] 4 week follow up. BP [facility] [place] Comment on above: 4 week follow up. BP Start: 06-30-2025 End: 06-30-2025 Patient encounter procedure 06/30/2025 1:00 PM EDT Office Visit Podiatry [address] [place] [address] Victoria Ashley [address] [place] [address] 6 month follow up foot care Podiatry Comment on above: 6 month follow up foot care Start: 06-23-2025 Annual PCP Team Chronic Disease Visit Annual PCP Team Chronic Disease Visit [facility] Start: 06-23-2025 BP Controlled (<130/80) BP Controlled (<130/80) [facility] Start: 06-09-2025 End: 06-09-2025 Patient encounter procedure 06/09/2025 1:00 PM EDT Office Visit [facility] [place] [address] [place] [address] Malu Townsend, ENGRAVER [employer].BUTTON MAKER AND INSTALLER [address] [place] [id number] Medicare Wellness ( RE 06/15/2025) [facility] [place] Comment on above: Medicare Wellness ( RE 06/15/2025) Start: 06-08-2025 Influenza vaccination Influenza Vaccine (#1) Quiñonez Zenia bertrand Start: 06-02-2025 End: 06-02-2025 Patient encounter procedure 06/02/2025 1:40 PM EDT Office Visit [facility] [place] [address] [facility], [place] [address] Destini Lee APRN.BUTTON MAKER AND INSTALLER [address] [facility] [place], [place] [phone] Medicare Wellness [facility] [place] Comment on above: Medicare Wellness Start: 06-02-2025 End: 06-02-2025 Patient encounter procedure 06/02/2025 9:20 AM EDT Office Visit [facility] [place] [address] [facility], [place] [id number] Adeel aHyes MD [address] [facility] [place] [address] Medicare Wellness [facility] [place] Comment on above: Medicare Wellness Start: 05-28-2025 Annual PCP Team Chronic Disease Visit Annual PCP Team Chronic Disease Visit [facility] Start: 03-25-2025 End: 03-25-2025 Patient encounter procedure 03/25/2025 9:20 AM EDT Office Visit [facility] [place] [address] [facility], [place] [address] Adeel Hayes MD [address] [facility] [place] [address] Medicare Wellness [facility] [place] Comment on above: Medicare Wellness Start: 03-24-2025 DIABETES SCREEN DIABETES SCREEN [facility] Start: 03-12-2025 Annual PCP Team Chronic Disease Visit Annual PCP Team Chronic Disease Visit [facility] Start: 03-12-2025 BP Controlled (<130/80) BP Controlled (<130/80) [facility] Start: 02-11-2025 Annual PCP Team Chronic Disease Visit Annual PCP Team Chronic Disease Visit [facility] Start: 02-11-2025 BP Controlled (<130/80) BP Controlled (<130/80) [facility] Start: 02-10-2025 End: 02-10-2025 Patient encounter procedure Podiatry Comment on above: 5 month follow up nail care Start: 01-18-2025 DIABETES SCREEN DIABETES SCREEN [facility] Start: 12-09-2024 End: 12-09-2024 Patient encounter procedure 12/09/2024 11:20 AM EST Office Visit [facility] [place] [address] [place] [address] Destini Lee APRN.BUTTON MAKER AND INSTALLER [address] [place], [place] [phone] 6 month follow up [facility] [place] Comment on above: 6 month follow up Start: 11-30-2024 Annual PCP Team Chronic Disease Visit Annual PCP Team Chronic Disease Visit [facility] Start: 11-30-2024 BP Controlled (<130/80) BP Controlled (<130/80) [facility] Start: 10-08-2024 Advance Directive Discussion Advance Directive Discussion [facility] Start: 10-08-2024 Medicare [facility] Annual Wellness Visit Medicare Advantage Annual Wellness Visit [facility] Start: 09-23-2024 End: 09-23-2024 Patient encounter procedure 09/23/2024 10:20 AM EST Office Visit [facility] [place] [address] [facility], [place] [address] Adeel Hayes MD [address] [facility] [place] [address] 6 month follow up [facility] [place] Comment on above: 6 month follow up Start: 09-18-2024 Annual PCP Team Chronic Disease Visit Annual PCP Team Chronic Disease Visit [facility] Start: 09-18-2024 BP Controlled (<130/80) BP Controlled (<130/80) [facility] Start: 09-18-2024 RSV Vaccine (1 - 1-dose 60+ series) RSV Vaccine (1 - 1-dose 60+ series) [facility] Comment on above: Postponed from 2006 (Declined at t his time) Start: 09-18-2024 RSV Vaccine (1 - 1-dose 75+ series) RSV Vaccine (1 - 1-dose 75+ series) [facility] Comment on above: Postponed from 2021 (Declined at t his time) Start: 09-09-2024 End: 09-09-2024 Patient encounter procedure 09/09/2024 11:15 AM EST Office Visit Podiatry [address] [place] [facility] [address] Victoria Ashley [address] [facility] [place] [address] 5 MONTH FOLLOW UP NAIL CARE Podiatry Comment on above: 5 MONTH FOLLOW UP NAIL CARE Start: 08-04-2024 End: 08-04-2024 Patient encounter procedure 08/04/2024 1:00 PM EDT Office Visit [facility] [place] [address] [place] [address] Destini Lee APRN.BUTTON MAKER AND INSTALLER [address] [place] [address] 6 week follow up [facility] [place] Comment on above: 6 week follow up Start: 07-09-2024 End: 07-09-2024 Patient encounter procedure 07/09/2024 2:40 PM EDT Office Visit [facility] [place] [address] [place] [address] Adeel Hayes MD [address] [place] [address] balance issue, possible ears [facility] [place] Comment on above: balance issue, possible ears Start: 06-08-2024 Influenza vaccination Influenza Vaccine (#1) [facility] Start: 05-28-2024 End: 05-28-2024 Patient encounter procedure 05/28/2024 2:20 PM EDT Office Visit [facility] [place] [address] [place] [address] Adeel Hayes MD [address] [place] [address] Medicare wellness/Vitamin question [facility] [place] Comment on above: Medicare wellness/Vitamin question Start: 04-08-2024 End: 04-08-2024 Patient encounter procedure 04/08/2024 11:30 AM EDT Office Visit Podiatry [address] [place] [address] Victoria Ashley [address] [place] [address] nail care Podiatry Comment on above: nail care Start: 03-19-2024 End: 06-18-2024 25-hydroxyvitamin D3 [Mass/volume] in Serum or Plasma VITAMIN D 25 HYDROXY Lab Routine Vitamin D deficiency Encounter for long-term current use of medication Expected: 03/19/2024 (Approximate), Expires: 06/18/2024 [facility] Work Phone: Comment on above: Expected: 03/19/2024 (Approximate), Expi res: 06/18/2024 Start: 03-19-2024 End: 06-18-2024 CBC panel - Blood by Automated count CBC Lab Routine Essential hypertension Encounter for long-term current use of medication Expected: 03/19/2024 (Approximate), Expires: 06/18/2024 [facility] Work Phone: Comment on above: Expected: 03/19/2024 (Approximate), Expi res: 06/18/2024 Start: 03-19-2024 End: 06-18-2024 Comprehensive metabolic 2000 panel - Serum or Plasma COMP METABOLIC PANEL Lab Routine Essential hypertension Vitamin D deficiency Hypokalemia Encounter for long-term current use of medication Expected: 03/19/2024 (Approximate), Expires: 06/18/2024 [facility] Work Phone: Comment on above: Expected: 03/19/2024 (Approximate), Expi res: 06/18/2024 Start: 03-19-2024 End: 06-18-2024 Lipid 1996 panel - Serum or Plasma LIPID PANEL BASIC Lab Routine Essential hypertension Hypertriglyceridemia Encounter for long-term current use of medication Expected: 03/19/2024 (Approximate), Expires: 06/18/2024 [facility] Work Phone: Comment on above: Expected: 03/19/2024 (Approximate), Expi res: 06/18/2024 Start: 03-19-2024 End: 06-18-2024 Magnesium [Mass/volume] in Serum or Plasma MAGNESIUM BLD Lab Routine Encounter for long-term current use of medication Expected: 03/19/2024 (Approximate), Expires: 06/18/2024 [facility] Work Phone: Comment on above: Expected: 03/19/2024 (Approximate), Expi res: 06/18/2024 Start: 03-12-2024 End: 03-12-2024 Patient encounter procedure 03/12/2024 9:40 AM EDT Office Visit [facility] [place] [address] [place], [place] [phone] Adeel Hayes MD [address] [place], [place] [phone] 6 month follow-up [facility] [place] Comment on above: 6 month follow-up Start: 03-10-2024 ANNUAL PCP TEAM CHRONIC DISEASE VISIT ANNUAL PCP TEAM CHRONIC DISEASE VISIT [facility] Start: 03-10-2024 COVID-19 VACCINE (#1) COVID-19 VACCINE (#1) [facility] Comment on above: Postponed from 01/13/1946 (Declined at t his time) Start: 03-10-2024 Urine microalbumin profile [facility] Comment on above: Postponed from 09/27/2022 (Declined at t his time) Start: 03-01-2024 DIABETES SCREEN DIABETES SCREEN [facility] Start: 10-08-2023 Advance Directive Discussion Advance Directive Discussion [facility] Start: 10-04-2023 ANNUAL PCP TEAM CHRONIC DISEASE VISIT ANNUAL PCP TEAM CHRONIC DISEASE VISIT [facility] Start: 10-04-2023 BP CONTROLLED (<130/80) BP CONTROLLED (<130/80) [facility] Start: 09-18-2023 BP CONTROLLED (<130/80) BP CONTROLLED (<130/80) [facility] Start: 08-16-2023 ANNUAL PCP TEAM CHRONIC DISEASE VISIT ANNUAL PCP TEAM CHRONIC DISEASE VISIT [facility] Start: 08-16-2023 BP CONTROLLED (<130/80) BP CONTROLLED (<130/80) [facility] Start: 08-14-2023 ANNUAL PCP TEAM CHRONIC DISEASE VISIT ANNUAL PCP TEAM CHRONIC DISEASE VISIT [facility] Start: 08-14-2023 SHINGRIX VACCINE (2 of 3) SHINGRIX VACCINE (2 of 3) [facility] Comment on above: Postponed from 11/21/2012 (Declined at t his time) Start: 06-08-2023 Covid-19 Vaccine () Covid-19 Vaccine () [facility] Start: 06-08-2023 Influenza vaccination [facility] Start: 03-24-2023 ANNUAL PCP TEAM CHRONIC DISEASE VISIT ANNUAL PCP TEAM CHRONIC DISEASE VISIT [facility] Start: 03-24-2023 BP CONTROLLED (<130/80) BP CONTROLLED (<130/80) [facility] Start: 02-11-2023 End: 04-13-2023 25-hydroxyvitamin D3 [Mass/volume] in Serum or Plasma VITAMIN D 25 HYDROXY Lab Routine Vitamin D deficiency Expected: 02/11/2023 (Approximate), Expires: 04/13/2023 [facility] Work Phone: Comment on above: Expected: 02/11/2023 (Approximate), Expi res: 04/13/2023 Start: 02-11-2023 End: 04-13-2023 CBC panel - Blood by Automated count CBC Lab Routine Essential hypertension Encounter for long-term current use of medication Expected: 02/11/2023 (Approximate), Expires: 04/13/2023 [facility] Work Phone: Comment on above: Expected: 02/11/2023 (Approximate), Expi res: 04/13/2023 Start: 02-11-2023 End: 04-13-2023 Comprehensive metabolic 2000 panel - Serum or Plasma COMP METABOLIC PANEL Lab Routine Hypokalemia Essential hypertension Encounter for long-term current use of medication Expected: 02/11/2023 (Approximate), Expires: 04/13/2023 [facility] Work Phone: Comment on above: Expected: 02/11/2023 (Approximate), Expi res: 04/13/2023 Start: 02-11-2023 End: 04-13-2023 Lipid 1996 panel - Serum or Plasma LIPID PANEL BASIC Lab Routine Hypertriglyceridemia Expected: 02/11/2023 (Approximate), Expires: 04/13/2023 [facility] Work Phone: Comment on above: Expected: 02/11/2023 (Approximate), Expi res: 04/13/2023 Start: 02-11-2023 End: 04-13-2023 Magnesium [Mass/volume] in Serum or Plasma MAGNESIUM BLD Lab Routine Encounter for long-term current use of medication Expected: 02/11/2023 (Approximate), Expires: 04/13/2023 [facility] Work Phone: Comment on above: Expected: 02/11/2023 (Approximate), Expi res: 04/13/2023 Start: 10-08-2022 ADVANCE DIRECTIVE DISCUSSION ADVANCE DIRECTIVE DISCUSSION [facility] Start: 09-27-2022 Urine microalbumin profile [facility] Start: 08-17-2022 ANNUAL PCP TEAM CHRONIC DISEASE VISIT ANNUAL PCP TEAM CHRONIC DISEASE VISIT [facility] Start: 08-17-2022 BP CONTROLLED (<130/80) BP CONTROLLED (<130/80) [facility] Start: 08-17-2022 COVID-19 VACCINE (#1) COVID-19 VACCINE (#1) [facility] Comment on above: Postponed from 1951 (Declined at t his time) Postponed from 01/13 (Declined at this time) Start: 08-17-2022 COVID-19 VACCINE (1) COVID-19 VACCINE (1) [facility] Comment on above: Postponed from 1950 (Declined at t his time) Start: 06-08-2022 Influenza vaccination INFLUENZA (#1) [facility] Start: 04-29-2022 End: 06-29-2022 POTASSIUM BLD POTASSIUM BLD Lab Routine Hypokalemia Expected: 04/29/2022 (Approximate), Expires: 06/29/2022 [facility] Work Phone: Comment on above: Expected: 04/29/2022 (Approximate), Expi res: 06/29/2022 Start: 03-22-2022 SHINGRIX VACCINE (2 of 3) SHINGRIX VACCINE (2 of 3) [facility] Comment on above: Postponed from 11/21/2012 (Declined at t his time) Start: 01-06-2022 End: 03-08-2022 CBC panel - Blood by Automated count CBC Lab Routine Essential hypertension Expected: 01/06/2022 (Approximate), Expires: 03/08/2022 [facility] Work Phone: Comment on above: Expected: 01/06/2022 (Approximate), Expi res: 03/08/2022 Start: 01-06-2022 End: 03-08-2022 Comprehensive metabolic 2000 panel - Serum or Plasma COMP METABOLIC PANEL Lab Routine Hypertriglyceridemia Essential hypertension Expected: 01/06/2022 (Approximate), Expires: 03/08/2022 [facility] Work Phone: Comment on above: Expected: 01/06/2022 (Approximate), Expi res: 03/08/2022 Start: 01-06-2022 End: 03-08-2022 LIPID PANEL BASIC LIPID PANEL BASIC Lab Routin e Hypertriglyceridemia Expected: 01/06/2022 (Approximate), Expires: 03/08/2022 [facility] Work Phone: Comment on above: Expected: 01/06/2022 (Approximate), Expi res: 03/08/2022 Start: 01-06-2022 End: 03-08-2022 VITAMIN D 25 HYDROXY VITAMIN D 25 HYDROXY Lab Routine Vitamin D deficiency Expected: 01/06/2022 (Approximate), Expires: 03/08/2022 [facility] Work Phone: Comment on above: Expected: 01/06/2022 (Approximate), Expi res: 03/08/2022 Start: 10-08-2021 ADVANCE DIRECTIVE DISCUSSION ADVANCE DIRECTIVE DISCUSSION [facility] Start: 2021 RSV Vaccine (1 - 1-dose 75+ series) RSV Vaccine (1 - 1-dose 75+ series) [facility] Start: 08-20-2020 COLORECTAL CANCER SCREENING COLORECTAL CANCER SCREENING [facility] Start: 08-20-2020 FECAL OCCULT BLOOD FECAL OCCULT BLOOD [facility] Start: 08-20-2020 Screening for malignant neoplasm of colon Fecal Occult Blood [facility] Start: 11-21-2012 SHINGRIX VACCINE (2 of 3) SHINGRIX VACCINE (2 of 3) [facility] Start: 2011 BONE DENSITY BONE DENSITY [facility] Start: 2011 Bone Density Screening Bone Density Screening [facility] Start: 2011 Screening for osteoporosis Bone Density Screening [facility] Start: 2006 RSV Vaccine (1 - 1-dose 60+ series) RSV Vaccine (1 - 1-dose 60+ series) [facility] Start: 1991 COLOGUARD (FIT-DNA) COLOGUARD (FIT-DNA) [facility] Start: 1991 Colonoscopy COLONOSCOPY [facility] Start: [address] COLONOGRAPHY [facility] Start: 1991 SIGMOIDOSCOPY SIGMOIDOSCOPY [facility] Start: 1964 BP CONTROLLED (<130/80) BP CONTROLLED (<130/80) [facility] Start: 01-13-1946 COVID-19 VACCINE (#1) COVID-19 VACCINE (#1) [facility] End: 10-17-2024 BD DXA TRABECULAR BONE SCORE (TBS) BD DXA TRABECULAR BONE SCORE (TBS) Radiology Routine Asymptomatic postmenopausal status 1 Occurrences starting 09/18/2023 until 10/17/2024 [facility] Work Phone: Comment on above: 1 Occurrences starting 09/18/2023 until 10/17/2024 End: 12-29-2024 BD DXA TRABECULAR BONE SCORE (TBS) BD DXA TRABECULAR BONE SCORE (TBS) Radiology Routine Asymptomatic postmenopausal status 1 Occurrences starting 11/30/2023 until 12/29/2024 [facility] Work Phone: Comment on above: 1 Occurrences starting 11/30/2023 until 12/29/2024 End: 07-09-2026 BD DXA TRABECULAR BONE SCORE (TBS) BD DXA TRABECULAR BONE SCORE (TBS) Radiology Routine Asymptomatic menopause 1 Occurrences starting 06/09/2025 until 07/09/[address] [facility] Comment on above: 1 Occurrences starting 06/09/2025 until 07/09/2026 End: 09-13-2023 Dxa bone density study 1/> sites axial skel DXA-AXIAL SKELETON Radiology Routine Asymptomatic postmenopausal status 1 Occurrences starting 08/14/2022 until 09/13/2023 [facility] Work Phone: Comment on above: 1 Occurrences starting 08/14/2022 until 09/13/2023 End: 12-29-2024 DXA Skeletal system.axial Views for bone density DXA-AXIAL SKELETON Radiology Routine Asymptomatic postmenopausal status 1 Occurrences starting 11/30/2023 until 12/29/2024 [facility] Work Phone: Comment on above: 1 Occurrences starting 11/30/2023 until 12/29/2024 End: 07-09-2026 DXA Skeletal system.axial Views for bone density DXA-AXIAL SKELETON Radiology Routine Asymptomatic menopause 1 Occurrences starting 06/09/2025 until 07/09/2026 [facility] Work Phone: Comment on above: 1 Occurrences starting 06/09/2025 until 07/09/2026 End: 10-17-2024 DXA-AXIAL SKELETON DXA-AXIAL SKELETON Radiology Routine Asymptomatic postmenopausal status 1 Occurrences starting 09/18/2023 until 10/17/2024 [facility] Work Phone: Comment on above: 1 Occurrences starting 09/18/2023 until 10/17/2024 Hemoglobin.gastroint es tinal.lower [Presence] in Stool by Immunoassay FECAL OCCULT BLOOD TEST Lab Routine Colon cancer screening Ordered: 08/14/2022 [facility] Work Phone: Comment on above: Ordered: 08/14/2022 Hemoglobin.gastroint es tinal.lower [Presence] in Stool by Immunoassay FECAL OCCULT BLOOD TEST Lab Routine Screening for colon cancer Ordered: 03/10/2023 [facility] Work Phone: Comment on above: Ordered: 03/10/2023 Hemoglobin.gastroint es tinal.lower [Presence] in Stool by Immunoassay IMMUNOCHEMICAL FECAL OCCULT BLOOD TEST Lab Routine Screening for colon cancer Ordered: 03/12/2024 [facility] Work Phone: Comment on above: Ordered: 03/12/2024 [facility] Immunizations Immunization Date Immunization Notes Care Provider Diogenes mccormick 07-09-2024 influenza, high dose seasonal, preservative-free Adeel Hayes MD Work Phone: [facility] 07-09-2024 influenza virus vacc ine, unspecified formulation Adeel Hayes MD Work Phone: [facility] 09-18-2023 influenza (HD-IIV4) vaccine, age 65+ yr, high dose, quadrivalent, PF (FLUZONE HIGH-DOSE) Adeel Hayes MD Work Phone: [facility] 09-18-2023 influenza virus vacc ine, unspecified formulation Victoria Gabi Work Phone: [facility] 08-14-2022 influenza, high-dose , quadrivalent vaccine (FLUZONE HIGH DOSE QUADRIVALENT) Adeel Hayes MD Work Phone: [facility] 08-14-2022 influenza virus vacc ine, unspecified formulation Adeel Hayes MD Work Phone: [facility] 08-17-2021 influenza, high-dose , quadrivalent vaccine (FLUZONE HIGH DOSE QUADRIVALENT) Adeel Hayes MD Work Phone: [facility] 08-24-2020 Influenza virus vaccine [facility] 08-24-2020 influenza, seasonal, injectable, preservative free Adeel Hayes MD Work Phone: [facility] 08-18-2020 influenza, high-dose , quadrivalent vaccine (FLUZONE HIGH DOSE QUADRIVALENT) Adeel Hayes MD Work Phone: [facility] 07-25-2019 influenza, high dose seasonal, preservative-free Adeel Hayes MD Work Phone: [facility] 08-12-2018 influenza, high dose seasonal, preservative-free Adeel Hayes MD Work Phone: [facility] 07-28-2017 influenza, high dose seasonal, preservative-free Adeel Hayes MD Work Phone: [facility] 01-23-2017 pneumococcal conjuga te vaccine, 13 valent Adeel Hayes MD Work Phone: [facility] 08-01-2016 influenza, high dose seasonal, preservative-free Adeel Hayes MD Work Phone: [facility] 07-06-2014 influenza, seasonal, injectable Adeel Hayes MD Work Phone: [facility] 07-23-2013 influenza virus vacc ine, unspecified formulation Adeel Hayes MD Work Phone: [facility] 09-27-2012 tetanus toxoid, redu elvira diphtheria toxoid, and acellular pertussis vaccine, adsorbed Adeel Hayes MD Work Phone: [facility] 09-26-2012 tetanus and diphther ia toxoids, adsorbed, preservative free, for adult use (2 Lf of tetanus toxoid and 2 Lf of diphtheria toxoid) Adeel Hayes MD Work Phone: [facility] 09-26-2012 zoster vaccine, live Adeel ralph MD Work Phone: [facility] 09-06-2012 influenza virus vacc johnathon, unspecified formulation Adeel Hayes MD Work Phone: [facility] 09-13-2011 pneumococcal polysaccharide vaccine, 23 valent Adeel Hayes MD Work Phone: [facility] 07-22-2009 influenza virus vacc ine, unspecified formulation Adeel Hayes MD Work Phone: [facility] 08-07-2006 influenza virus vacc ine, unspecified formulation Adeel Hayes MD Work Phone: [facility] Payers Date Payer Category Payer Self-pay [id number] 2024 Unknown [id number] 2022 Medicare (Managed Care) [id number] 2022 Unknown [id number] 2022 Unknown [id number] 2021 Medicare HUMANA MEDICARE HU[employer]NA MEDICARE PPO [id number] 2021-Present [phone] [address] [address] [place] [address] PPO [id number] 2021 Medicare [id number] Medicare [id number] Medicare [id number] Unknown [id number] Unknown [id number] Unknown [id number] Unknown [id number] Unknown [id number] Social History Date Type Detail Facility Start: 02-04-2018 End: 09-18-2022 Tobacco smoking status NHIS Never smoked tobacco [facility] Start: 08-17-2021 End: 04-15-2025 Alcohol intake Current non-drinker of alcohol (finding) [facility] Start: 1945 Sex Assigned At Not on file [facility] Start: 01-08-2022 End: 08-14-2022 Exposure to SARS-CoV-2 (event) Not sure [facility] Work Phone: Start: 02-04-2018 End: 09-18-2022 Tobacco use and exposure Smokeless tobacco non-user [facility] Start: 1945 Sex Assigned At Female [facility] Start: 05-26-2021 Tobacco smoking stat us MIIS Unknown if ever smoked [facility] Start: 09-10-2020 Non-smoker [facility] Start: 05-21-2023 End: 02-10-2025 History of Social function [facility] Start: 05-21-2023 End: 02-10-2025 Tobacco use panel [facility] Start: 09-08-2012 Adult Depression Screening Assessment [address] [facility] How often to you hav e a drink containing alcohol? Never [facility] Start: 06-09-2025 Alcoholic beverage intake Lifetime non-drinker (finding) [facility] Medical Equipment Procedure Code Equipment Code [...] by anterior approach POLY INSERT FDA Start: 02-17-2021 Functional Status Date Assessment Result Facility 06-09-2025 Total score [AUDIT-C] 0 06/09/20 25 1:13 PM EDT Malu Townsend, [employer] 05-12-2015 Are you deaf, or do you have serious difficulty hearing No 05/12/2015 9:42 AM EDT Bella Zelaya LPN No [facility] 05-12-2015 Are you blind, or do you have serious difficulty seeing, even when wearing glasses No 05/12/2015 9:42 AM EDT Bella Zelaya LPN No [facility] 05-12-2015 Do you have serious difficulty walking or climbing stairs No 05/12/2015 9:42 AM EDT Bella Zelaya LPN No [facility] 05-12-2015 Do you have difficul ty dressing or bathing No 05/12/2015 9:42 AM EDT Bella Zelaya LPN No [facility] 05-12-2015 Because of a physica l, mental, or emotional condition, do you have difficulty doing errands alone such as visiting a physician's office or shopping No 05/12/2015 9:42 AM EDT Bella Zelaya LPN No [facility] Mental Status Date Assessment Result Facility 05-12-2015 Because of a physica l, mental, or emotional condition, do you have serious difficulty concentrating, remembering, or making decisions No 05/12/2015 9:42 AM EDT Bella Zelaya LPN No [facility] Clinical Notes 12-31-2021 to 06-19-2025 Telephone Encounter - Ariana Hernandez LPN - 06/19/2025 2:59 PM EDTTelephone Encounter - Ariana Hernandez LPN - 06/19/2025 2:59 PM EDTPatient Victoria Suggs - 02/10/2025 1:31 PM EDT Note Date & Type Note Facility 06-19-2025 Telephone encounter Note rx was already for powder sent 06/16/[address] [facility] 06-19-2025 Miscellaneous Notes rx was already for powder sent 06/16/2025 Patient requesting to change her nystatin cream to a powder form. Please send script to her pharmacy. Pended for review. Please call Dodie with an update. Thank you. documented in this encounter [facility] 06-16-2025 Telephone encounter Note Patient requesting to change her nystatin cream to a powder form. Please send script to her pharmacy. Pended for review. Please call Dodie with an update. Thank you. [facility] 06-12-2025 Telephone encounter Note Patient notified of results and provider's instructions. Patient verbalizes understanding. Leila Verduzco LPN [facility] 06-12-2025 Miscellaneous Notes Patient notified of results and provider's instructions. Patient verbalizes understanding. Leila Verduzco LPN Please let the patient know her lab results were all within an acceptable range. Fatigue and other symptoms likely due to low blood pressure as discussed during the office visit Malu Townsend APRN.BUTTON MAKER AND INSTALLER documented in this encounter [facility] 06-12-2025 Telephone encounter Note Please let the patient know her lab results were all within an acceptable range. Fatigue and other symptoms likely due to low blood pressure as discussed during the office visit Malu Townsend APRN.BUTTON MAKER AND INSTALLER [facility] 06-09-2025 Instructions Malu Townsend, ALLA.MERARI - 06/09/2025 1:13 PM EDT - Decrease your atenolol to half of a 25 mg tablet (12.5 mg) once each morning with your other pills. - For the rash under your arm folds: wash and dry the area thoroughly, apply the prescribed antifungal cream in a thin layer, and then (if desired) dust with an unscented powder. Continue the cream until the rash clears, then stop; if it returns, you may reuse the remaining ointment. Screening schedule The following prevention plan is recommended: Bone Density Screening Never done Shingrix Vaccine(2 of 3) due on 11/21/2012 RSV Vaccine(1 - 1-dose 75+ series) Never done DTaP,Tdap,Td Vaccine(2 - Td or Tdap) due on 09/27/2022 Influenza Vaccine(1) due on 06/08/2025 WHAT YOU CAN DO TO PREVENT FALLS [...] review all the medicines you take, even [id number] medicines. As you get older, the way [...] certain medical conditions. documented in this encounter [facility] 06-09-2025 Note HNO ID: [id number] Author: MALU TOWNSEND APRN.CNP Service: ? Author Type: Nurse Practitioner Type: Progress Notes Filed: 06/09/2025 14:08 Note Text: Dodie Li is a 79 year old female here for a Medicare [...] of the patient in the medical record. Current care team: Patient Care Team: Adeel Hayes MD as PCP - General Destini Lee APRN.BUTTON MAKER AND INSTALLER as Pumper Gager Apprentice (Internal Medicine) Enriqueta Otto APRN.FILM EDITOR as Pumper Gager Apprentice (Internal Medicine) Dr. Lal (Retinal specialist), Dr. Denny Briseno (fruit room hand) Medical/Family history review Reviewed and updated problem list, medical/surgical/family/social history, medications, and allergies. Opioid use review Opioid Medications (last 90 days) No data to display Anxiety/Depression screening Already diagnosed Recommendation: continuing current treatment plan Cognitive screening Mini Cog Score: 2 Cognitive screening reviewed and Recommended referral for further evaluation (score 0-2). Functional Observation Was the patient's Timed Up AND Go test unsteady or >= 12 seconds? Advance Care Planning Patient did not wish or was not able to name a surrogate decision maker or provide an advance care plan Measurements BP 95/55 Pulse 74 Resp 16 Ht 149.2 cm (4' 10.75) Wt 83.2 kg (183 lb 6.8 oz) SpO2 96% BMI 37.36 kg/m? Vision Screening: Follows with optometry/ophthalmology Assessment/Plan Medicare annual wellness visit, subsequent (Z00.00) - Counseled on healthy diet and regular exercise - Fall avoidance information provided - Personalized prevention plan provided - Discussed need for and benefit of weight loss. BMI 37.36 kg/(m2) Additional Concerns The following concerns were also discussed with the patient: Rash: She reports first developing an itchy rash along her arm about a year to a year and a half ago, which lasted approximately five weeks at that time. She previously received a prescription powder but found it difficult to apply and wonders if she now needs additional treatment. She bathes once weekly, performs sponge baths otherwise, and attempts to keep the affected area dry. The rash remains persistently itchy. Memory Concerns: She was informed she missed a few points on a recent memory screening. She declines seeing a memory specialist and attributes her forgetfulness to stress regarding power of traffic law attorney changes and to aging. She denies receiving any specialized memory care. Blood Pressure and Dizziness: She describes a long history of HTN and states she was on 50 mg of atenolol for years, which was subsequently decreased to 25 mg because it made her feel ?loopy.? She still feels that her blood pressure is too low and continues to have fatigue. She commonly experiences episodes of feeling ?woozy? or ?drunk? by mid-afternoon, typically improving by around 1700. Review of Systems Constitutional: Negative for chills, diaphoresis, fever and unexpected weight change. Respiratory: Negative for cough, shortness of breath and wheezing. Cardiovascular: Negative for chest pain, palpitations and leg swelling. Gastrointestinal: Negative for anal bleeding. Genitourinary: Negative for dysuria. Neurological: Negative for syncope and numbness. Objective: BP 95/55 Pulse 74 Resp 16 Ht 149.2 cm (4' 10.75) Wt 83.2 kg (183 lb 6.8 oz) SpO2 96% BMI 37.36 kg/m? Physical Exam Vitals reviewed. Constitutional: Appearance: Normal appearance. HENT: Mouth/Throat: Mouth: Mucous membranes are moist. Pharynx: Oropharynx is clear. Eyes: Conjunctiva/sclera: Conjunctivae normal. Cardiovascular: Rate and Rhythm: Normal rate and regular rhythm. Heart sounds: Normal heart sounds. Pulmonary: Effort: Pulmonary effort is normal. Breath sounds: Normal breath sounds. No wheezing, rhonchi or rales. Abdominal: Neurological: Mental Status: She is alert. Psychiatric: Mood and Affect: Mood normal. DATA REVIEWED: Most recent labs Assessment/Plan: 1. Medicare annual wellness visit, subsequent: See Medicare Wellness plan 2. Hypotension, unspecified hypotension type: Blood pressure has been running approximately 95/55 mmHg; patient reports increased wooziness and feeling ?loopy? mid-day. - Previously on atenolol 25 mg daily; decreased dosage to atenolol 12.5 (more content not included)... [facility] 06-09-2025 History of Present illness Narrative Images from the original note were not included. Dodie Li is a 79 year old female here for a Medicare [...] of the patient in the medical record. Current care team: Patient Care Team: Adeel Hayes MD as PCP - General Destini Lee APRN.BUTTON MAKER AND INSTALLER as Pumper Gager Apprentice (Internal Medicine) Enriqueta Otto APRN.FILM EDITOR as Pumper Gager Apprentice (Internal Medicine) Dr. Lal (Retinal specialist), Dr. Denny Briseno (fruit room hand) Medical/Family history review Reviewed and updated problem list, medical/surgical/family/social history, medications, and allergies. Opioid use review Opioid Medications (last 90 days) No data to display Anxiety/Depression screening Already diagnosed Recommendation: continuing current treatment plan Cognitive screening Mini Cog Score: 2 Cognitive screening reviewed and Recommended referral for further evaluation (score 0-2). Functional Observation Was the patient's Timed Up & Go test unsteady or >= 12 seconds? Advance Care Planning Patient did not wish or was not able to name a surrogate decision maker or provide an advance care plan Measurements BP 95/55 Pulse 74 Resp 16 Ht 149.2 cm (4' 10.75) Wt 83.2 kg (183 lb 6.8 oz) SpO2 96% BMI 37.36 kg/m Vision Screening: Follows with optometry/ophthalmology Assessment/Plan Medicare annual wellness visit, subsequent (Z00.00) - Counseled on healthy diet and regular exercise - Fall avoidance information provided - Personalized prevention plan provided - Discussed need for and benefit of weight loss. BMI 37.36 kg/(m^2) Additional Concerns The following concerns were also discussed with the patient: Rash: She reports first developing an itchy rash along her arm about a year to a year and a half ago, which lasted approximately five weeks at that time. She previously received a prescription powder but found it difficult to apply and wonders if she now needs additional treatment. She bathes once weekly, performs sponge baths otherwise, and attempts to keep the affected area dry. The rash remains persistently itchy. Memory Concerns: She was informed she missed a few points on a recent memory screening. She declines seeing a memory specialist and attributes her forgetfulness to stress regarding power of traffic law attorney changes and to aging. She denies receiving any specialized memory care. Blood Pressure and Dizziness: She describes a long history of HTN and states she was on 50 mg of atenolol for years, which was subsequently decreased to 25 mg because it made her feel loopy. She still feels that her blood pressure is too low and continues to have fatigue. She commonly experiences episodes of feeling woozy or drunk by mid-afternoon, typically improving by around 1700. Review of Systems Constitutional: Negative for chills, diaphoresis, fever and unexpected weight change. Respiratory: Negative for cough, shortness of breath and wheezing. Cardiovascular: Negative for chest pain, palpitations and leg swelling. Gastrointestinal: Negative for anal bleeding. Genitourinary: Negative for dysuria. Neurological: Negative for syncope and numbness. Objective: BP 95/55 Pulse 74 Resp 16 Ht 149.2 cm (4' 10.75) Wt 83.2 kg (183 lb 6.8 oz) SpO2 96% BMI 37.36 kg/m Physical Exam Vitals reviewed. Constitutional: Appearance: Normal appearance. HENT: Mouth/Throat: Mouth: Mucous membranes are moist. Pharynx: Oropharynx is clear. Eyes: Conjunctiva/sclera: Conjunctivae normal. Cardiovascular: Rate and Rhythm: Normal rate and regular rhythm. Heart sounds: Normal heart sounds. Pulmonary: Effort: Pulmonary effort is normal. Breath sounds: Normal breath sounds. No wheezing, rhonchi or rales. Abdominal: Neurological: Mental Status: She is alert. Psychiatric: Mood and Affect: Mood normal. DATA REVIEWED: Most recent labs Assessment/Plan: 1. Medicare annual wellness visit, subsequent: See Medicare Wellness plan 2. Hypotension, unspecified hypotension type: Blood pressure has been running approximately 95/55 mmHg; patient reports increased wooziness and feeling loopy mid-day. - Previously on atenolol 25 mg daily; decreased dosage to atenolol 12.5 mg daily in the morning to reduce lightheadedness. - Instructed patient to follow up in one month for blood pressure recheck and possible discontinuation of atenolol if symptoms persist or hypotension remains pronounced. 3. Intertrigo: Pruritic rash noted under skin folds, slightly erythematous. - Prescribed topical antifungal cream; instructed patient to cleanse and dry area thoroughly before application. - Recommended use of unscented powder over the cream if needed to keep the area dry. - Advised patient to reserve leftover cream for recurrent flare-ups. 4. Malaise: Symptoms potentially related to low blood pressure and medication side effects. See Hypotension, unspecified hypotension type above for treatment/management plan. 5. Episodic lightheadedness: Patient describes feeling drunk or woozy, especially in early to mid-afternoon; likely associated with peak effects of beta-lalito therapy. See Hypotension, unspecified hypotension type above for treatment/management plan. 6. Anemia, unspecified type: Mild anemia was previously noted; patient reports some fatigue. - Ordered repeat lab work (complete blood count and kidney function tests) to evaluate for changes or worsening of anemia and to ensure no dehydration. - Results will be communicated to patient via telephone. 7. Asymptomatic menopause: - Due for BMD 8. Memory impairment: Mild deficits on in-office screening; patient missed a few points. - Offered referral to memory specialist for further evaluation; patient declined at present. - Will monitor cognition over time; patient may reconsider referral if concerns persist or worsen. Prescription instructions reviewed with patient as applicable. Potential red flag symptoms discussed with the patient. Reviewed appropriate action plan to take if red flag symptoms occur. Patient agreeable to treatment plan. Malu Townsend APRN.[employer] documented in this encounter [facility] 04-30-2025 Telephone encounter Note Pt called and is notified of providers mesage and instructions. Pt voices understanding. Deidra Flores RN [facility] 04-30-2025 Miscellaneous Notes Pt called and is notified of providers mesage and instructions. Pt voices understanding. Deidra Flores RN Noted. Agree with continuing meds as is as noted below since doing better. Follow up as needed Patient calls to report she heard it was better to take BP medication at night and asking if she should do that. Asked patient how she was feeling and she reports pretty good as of right now. She doesn't feel that she is as loopy and overall better. Reports BP has been ok when they check it but didn't have any specific readings. Recommended she continue taking her atenolol in the morning as she has been if she is feeling better and then that way if she starts having problems again she could have the nurses check her BP throughout the day. Patient agrees. Daniela Gordon RN Patient was started back on sertraline. Patient states that she has been sleeping ok. Patient states that she is not feeling as sleepy in the afternoon now. Patient states that since atenolol was decreased to 25 mg she has not felt as loopy. Please review and advise, Carla Almonte RN Seroquel? Patient was on sertraline before for depression, not seroquel. Clarify meant sertraline. Is she sleeping okay at night? Patient calls and states that in the afternoon patient still feels sleepy and she has a hard time staying. Patient wanting to know what else can be done? Patient's atenolol was decreased to 25 mg at appointment on 04/15/2025 and patient was restarted on Seroquel due to depressive mood. Please review and advise, Carla Almonte RN documented in this encounter [facility] 04-30-2025 Telephone encounter Note Noted. Agree with continuing meds as is as noted below since doing better. Follow up as needed [facility] 04-30-2025 Telephone encounter Note Patient calls to report she heard it was better to take BP medication at night and asking if she should do that. Asked patient how she was feeling and she reports pretty good as of right now. She doesn't feel that she is as loopy and overall better. Reports BP has been ok when they check it but didn't have any specific readings. Recommended she continue taking her atenolol in the morning as she has been if she is feeling better and then that way if she starts having problems again she could have the nurses check her BP throughout the day. Patient agrees. Daniela Gordon RN [facility] 04-27-2025 Telephone encounter Note Patient was started back on sertraline. Patient states that she has been sleeping ok. Patient states that she is not feeling as sleepy in the afternoon now. Patient states that since atenolol was decreased to 25 mg she has not felt as loopy. Please review and advise, Carla Almonte RN [facility] 04-25-2025 Telephone encounter Note Seroquel? Patient was on sertraline before for depression, not seroquel. Clarify meant sertraline. Is she sleeping okay at night? [facility] 04-23-2025 Telephone encounter Note Patient calls and states that in the afternoon patient still feels sleepy and she has a hard time staying. Patient wanting to know what else can be done? Patient's atenolol was decreased to 25 mg at appointment on 04/15/2025 and patient was restarted on Seroquel due to depressive mood. Please review and advise, Carla Almonte RN [facility] 04-15-2025 Note HNO ID: [id number] Author: DESTINI LEE APRN.[employer] Service: ? Author Type: Nurse Practitioner Type: Progress Notes Filed: 04/15/2025 15:58 Note Text: SUBJECTIVE Dodie Li is a 79 year old female here today for a check up on her medical problems. Chief Complaint Patient presents with: Blood Pressure Dizziness HPI Dodie Li is a 79-year-old female, residing in a fci, presenting with concerns about low blood pressure readings, dizziness, and visual disturbances. Dodie reports experiencing visual disturbances described as floaters and a fine mist that appear intermittently and then resolve. 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 She also reports concerns about low blood pressure readings, with recent measurements at her fci being 115/59 mmHg and 102/70 mmHg. She is currently taking atenolol 50 mg in the morning. She notes that her symptoms of dizziness and feeling loopy begin in the mid-afternoon and improve by the evening. She also reports difficulty focusing her eyes and increased fatigue, stating, I could fall asleep right now, I'll tell you the truth. She attributes these symptoms to her medication regimen and expresses concern about the timing of her medication administration. Dodie has a history of falls, having fallen three times since residing in the fci. She also has a history of a hip replacement and expresses concern about the potential consequences of another fall. She was previously taking sertraline for adjustment issues related to living in a fci but has since discontinued it. She reports feeling less focused and having difficulty expressing herself since stopping the medication. Dodie also mentions that her chlorthalidone was discontinued by Dr. Hayes in July due to complaints of dizziness and nocturia. She expresses concern about the potential for falls due to frequent nighttime urination and slippery floors in the fci. Her medications were reviewed today and her list is now up to date. Medications Current Outpatient Medications Medication Sig potassium chloride SR (MICRO-K) 10 mEq CR capsule Take 10 mEq by mouth once daily. phenylephrine HCl (PREPARATION H, PE, RECTAL) by RECTAL route. calcium carbonate (TUMS) 500 mg chew Take 500 mg by mouth every 4 hours as needed. ALPRAZolam (XANAX) 0.25 mg tablet Take 0.25 mg by mouth at bedtime as needed for anxiety. clindamycin (CLEOCIN) 300 mg capsule Take 300 mg by mouth. Take 2 capsules by mouth 1 hour prior to procedure loperamide HCl (IMODIUM A-D) 2 mg tab Take 2 mg by mouth as needed. doxepin capsule 10 mg Take 1 capsule by mouth daily at bedtime. vit C/E/Zn/coppr/lutein/zeaxan (PRESERVISION AREDS-2 ORAL) Take 1 tablet by mouth once daily. omeprazole (PRILOSEC) 20 mg capsule Take 1 capsule by mouth once daily. OAT BRAN ORAL Take 2 tablets by mouth once daily. gemfibrozil (LOPID) 600 mg tablet Take 1 tablet by mouth two times a day. calcium carbonate (CALTRATE 600 ORAL) Take 1 tablet by mouth once daily. docusate sodium (STOOL SOFTENER ORAL) Take 2 capsules by mouth daily at bedtime. 200mg total VITAMIN E ACETATE ORAL Take 1 capsule by mouth once daily. Ascorbic Acid-Collagen (COLLAGEN PLUS VITAMIN C) 125-740 mg cap Take 1 capsule by mouth once daily. cyanocobalamin (VITAMIN B-12) 1,000 mcg tab Take 1,000 mcg by mouth once daily. guaifenesin/dextromethorphan (MUCINEX DM ORAL) Take 1 tablet by mouth once daily as needed. fexofenadine (LETICIA) 60 mg tablet Take 180 mg by mouth once daily as needed. polyethylene glycol 3350 (MIRALAX) 17 gram/dose powder Take 17 g by mouth once daily. aspirin, enteric coated (ASPIRIN, ENTERIC COATED) 81 mg EC tablet Take 81 mg by mouth once daily. cholecalciferol(VITAMIN D 2,000 UNIT CAP) Take 4,000 Units by mouth once daily. OMEGA 3 550 MG CAP Take one(1) tablet daily. CALCIUM + D 600 MG-200 UNIT ORAL TAB Take by mouth. TYLENOL EXTRA STRENGTH 500 MG ORAL TAB Take two(2) tablets every four(4) to six(6) hours as needed. sertraline (ZOLOFT) 25 mg tablet Take 1 tablet by mouth once daily. atenolol (TENORMIN) 25 mg tablet Take 1 tablet by mouth once daily. No current facility-administered medications for this [...] Whether Generalized Or Localized, Lower Leg - (more content not included)... [facility] 04-15-2025 History of Present illness Narrative SUBJECTIVE Dodie Li is a 79 year old female here today for a check up on her medical problems. Chief Complaint Patient presents with: Blood Pressure Dizziness HPI Dodie Li is a 79-year-old female, residing in a fci, presenting with concerns about low blood pressure readings, dizziness, and visual disturbances. Dodie reports experiencing visual disturbances described as floaters and a fine mist that appear intermittently and then resolve. 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 She also reports concerns about low blood pressure readings, with recent measurements at her fci being 115/59 mmHg and 102/70 mmHg. She is currently taking atenolol 50 mg in the morning. She notes that her symptoms of dizziness and feeling loopy begin in the mid-afternoon and improve by the evening. She also reports difficulty focusing her eyes and increased fatigue, stating, I could fall asleep right now, I'll tell you the truth. She attributes these symptoms to her medication regimen and expresses concern about the timing of her medication administration. Dodie has a history of falls, having fallen three times since residing in the fci. She also has a history of a hip replacement and expresses concern about the potential consequences of another fall. She was previously taking sertraline for adjustment issues related to living in a fci but has since discontinued it. She reports feeling less focused and having difficulty expressing herself since stopping the medication. Dodie also mentions that her chlorthalidone was discontinued by Dr. Hayes in July due to complaints of dizziness and nocturia. She expresses concern about the potential for falls due to frequent nighttime urination and slippery floors in the fci. Her medications were reviewed today and her list is now up to date. Medications Current Outpatient Medications Medication Sig potassium chloride SR (MICRO-K) 10 mEq CR capsule Take 10 mEq by mouth once daily. phenylephrine HCl (PREPARATION H, PE, RECTAL) by RECTAL route. calcium carbonate (TUMS) 500 mg chew Take 500 mg by mouth every 4 hours as needed. ALPRAZolam (XANAX) 0.25 mg tablet Take 0.25 mg by mouth at bedtime as needed for anxiety. clindamycin (CLEOCIN) 300 mg capsule Take 300 mg by mouth. Take 2 capsules by mouth 1 hour prior to procedure loperamide HCl (IMODIUM A-D) 2 mg tab Take 2 mg by mouth as needed. doxepin capsule 10 mg Take 1 capsule by mouth daily at bedtime. vit C/E/Zn/coppr/lutein/zeaxan (PRESERVISION AREDS-2 ORAL) Take 1 tablet by mouth once daily. omeprazole (PRILOSEC) 20 mg capsule Take 1 capsule by mouth once daily. OAT BRAN ORAL Take 2 tablets by mouth once daily. gemfibrozil (LOPID) 600 mg tablet Take 1 tablet by mouth two times a day. calcium carbonate (CALTRATE 600 ORAL) Take 1 tablet by mouth once daily. docusate sodium (STOOL SOFTENER ORAL) Take 2 capsules by mouth daily at bedtime. 200mg total VITAMIN E ACETATE ORAL Take 1 capsule by mouth once daily. Ascorbic Acid-Collagen (COLLAGEN PLUS VITAMIN C) 125-740 mg cap Take 1 capsule by mouth once daily. cyanocobalamin (VITAMIN B-12) 1,000 mcg tab Take 1,000 mcg by mouth once daily. guaifenesin/dextromethorphan (MUCINEX DM ORAL) Take 1 tablet by mouth once daily as needed. fexofenadine (LETICIA) 60 mg tablet Take 180 mg by mouth once daily as needed. polyethylene glycol 3350 (MIRALAX) 17 gram/dose powder Take 17 g by mouth once daily. aspirin, enteric coated (ASPIRIN, ENTERIC COATED) 81 mg EC tablet Take 81 mg by mouth once daily. cholecalciferol(VITAMIN D 2,000 UNIT CAP) Take 4,000 Units by mouth once daily. OMEGA 3 550 MG CAP Take one(1) tablet daily. CALCIUM + D 600 MG-200 UNIT ORAL TAB Take by mouth. TYLENOL EXTRA STRENGTH 500 MG ORAL TAB Take two(2) tablets every four(4) to six(6) hours as needed. sertraline (ZOLOFT) 25 mg tablet Take 1 tablet by mouth once daily. atenolol (TENORMIN) 25 mg tablet Take 1 tablet by mouth once daily. No current facility-administered medications for this [...] Review of Systems Respiratory: Negative. Cardiovascular: Negative. Neurological: Positive for dizziness. Negative for tremors, seizures, syncope, speech difficulty and numbness. OBJECTIVE BP 102/70 Pulse 70 Ht 4' 10.47 (1.49m) Wt 181 lb 7 oz (82.3kg) BMI 37.32 kg/(m^2). Physical Exam Vitals and nursing note reviewed. [...] memory normal. Judgment: Judgment normal. ASSESSMENT/PLAN: 1. Essential (primary) hypertension (I10) Dizziness and giddiness (R42) Blood pressure readings have been low, with today's measurement at 102/70 mmHg. Current antihypertensive regimen includes atenolol 50 mg daily. Low blood pressure likely contributing to dizziness and giddiness, particularly in the mid-afternoon when medication effects peak. - Decrease atenolol dose from 50 mg to 25 mg daily. - Discontinue chlorthalidone as previously decided by Dr. Hayes due to nocturia and dizziness. - Monitor blood pressure closely to assess response to dosage reduction. 2. Bilateral age-related macular degeneration (H35.30) Progressive loss of central vision in both eyes, with intermittent visual disturbances described as rain mist floaters. 3. Adjustment disorder with mixed anxiety and depressed mood (F43.23) Experiencing difficulty adjusting to fci environment, leading to anxiety and depressed mood. Previously on sertraline 25 mg daily, which provided some relief. - Resume sertraline 25 mg daily. - Transmit new prescription for sertraline to fci staff. Portions of this note have been entered [...] to improve, for Keep next scheduled appointment.. MARQUIS Arredondo documented in this encounter [facility] 04-15-2025 Telephone encounter Note noted [facility] 04-15-2025 Miscellaneous Notes noted Patient calls back and now is scheduled to see Destini today at 3:40. Carla Almonte RN Patient calls back and schedules appointment with Destini on Sunday04/17/2025 2:20. Carla Almonte RN Pt called in and reports her BP was 115/59 and states that is low for her. I told her the last time she was in that her BP was 118/68, and she states that is more normal for her. She was asking what medications she was on for her BP. I told her she wad on the Atenolol 50 mg daily. She said she though she was on a diuretic. I told her she was on Atenolol-Chlorthalidone 100-25 me, but that was discontinued 07/09/24. Pt states she feels fine when she wakes up in the morning, but by 2 or 3 she feels woozy or dizzy and she thinks its because the P medication has had time to work. She reports by bedtime she feels fine again once the medication has worked it's way out of her system. I told the Pt she needs to get one of the nurses to take her BP when she is feeling that way, and she states she can't always get someone to take it. I told her if she had a personal one she could take her own. I told Pt she should come in and be seen and to bring her BP readings with her. Pt is going to see when she would be able to get in. Deidra Flores RN Patient calls and states that she feels groggy a couple hours after taking medication at 9 am. Patient is wondering if blood pressure medications could be causing this. [facility] staff give patient her morning blood medications. Patient asking if provider thinks it would be beneficial if she took her BP mediations at night? Patients states that BP a little while ago was 115/58. Patient reports that blood pressure is not taken prior to her taking medications in the morning. Please review and advise, Carla Almonte RN documented in this encounter [facility] 04-15-2025 Telephone encounter Note Patient calls back and now is scheduled to see Destini today at 3:40. Carla Almonte RN [facility] 04-15-2025 Telephone encounter Note Patient calls back and schedules appointment with Destini on Sunday04/17/2025 2:20. Carla Almonte RN [facility] 04-15-2025 Telephone encounter Note Pt called in and reports her BP was 115/59 and states that is low for her. I told her the last time she was in that her BP was 118/68, and she states that is more normal for her. She was asking what medications she was on for her BP. I told her she wad on the Atenolol 50 mg daily. She said she though she was on a diuretic. I told her she was on Atenolol-Chlorthalidone 100-25 me, but that was discontinued 07/09/24. Pt states she feels fine when she wakes up in the morning, but by 2 or 3 she feels woozy or dizzy and she thinks its because the P medication has had time to work. She reports by bedtime she feels fine again once the medication has worked it's way out of her system. I told the Pt she needs to get one of the nurses to take her BP when she is feeling that way, and she states she can't always get someone to take it. I told her if she had a personal one she could take her own. I told Pt she should come in and be seen and to bring her BP readings with her. Pt is going to see when she would be able to get in. Deidra Flores RN [facility] 04-14-2025 Telephone encounter Note Patient calls and states that she feels groggy a couple hours after taking medication at 9 am. Patient is wondering if blood pressure medications could be causing this. [facility] staff give patient her morning blood medications. Patient asking if provider thinks it would be beneficial if she took her BP mediations at night? Patients states that BP a little while ago was 115/58. Patient reports that blood pressure is not taken prior to her taking medications in the morning. Please review and advise, Carla Almonte RN [facility] 04-08-2025 Telephone encounter Note Patient calls back and message below reviewed with verbalized understanding. Patient reports that she has already tried PT for the symptoms so if anything will want consult to neurology. Reports she will monitor symptoms and call back if desires consult. Daniela Gordon RN [facility] 04-08-2025 Miscellaneous Notes Patient calls back [...] telephone encounter from 03/30/2025 where Vale from [facility] was asking about discontinuing medication and had faxed over orders to do that. Please review and advise, Carla Almonte RN documented in this encounter [facility] 04-07-2025 Telephone encounter Note I sent order to d/c the sertraline in case it was causing or contributing to the falls. See how she does off the med. If ongoing issues with falls, consider evaluation with PT and/or neurology [facility] 04-07-2025 Telephone encounter Note Patient calls to check on status of request of message below. Reports AL staff received a fax that she should discontinue sertraline. Recommended patient follow the directions that patient received from AL staff since fax would have been from provider. Daniela Gordon RN [facility] 04-07-2025 Telephone encounter Note Patient calls [...] telephone encounter from 03/30/2025 where Vale from [facility] was asking about discontinuing medication and had faxed over orders to do that. Please review and advise, Carla Almonte RN [facility] 03-30-2025 Telephone encounter Note Vale from [facility] calls and states that they had received fax order to decrease sertraline. Family is asking for medication to be discontinued completely. Vale is faxing orders again to have medication discontinued. Please review and advise, Carla Almonte RN [facility] 03-30-2025 Miscellaneous Notes Vale from [facility] calls and states that they had received fax order to decrease sertraline. Family is asking for medication to be discontinued completely. Vale is faxing orders again to have medication discontinued. Please review and advise, Carla Almonte RN documented in this encounter [facility] 02-10-2025 Note HNO ID: [id number] Author: VICTORIA ASHLEY, ? Service: ? Author [...] RTC in 4-5 months Victoria Ashley DPM [facility] 02-10-2025 History of Present illness [...] month follow up nail care. ASHLEY 09/09/24 documented in this encounter [facility] 02-10-2025 Note HNO ID: [id number] Author: DEIDRA CURRY RN Service: ? Author Type: Registered Nurse Type: Progress Notes Filed: 02/10/2025 13:41 Note Text: Patient presents with: Left Foot - Established Patient, Follow Up, nail care Right Foot - Established Patient, Follow Up, nail care Patient presents for 5 month follow up nail care. ASHLEY 09/09/24 [facility] 01-27-2025 Telephone encounter Note Completed and faxed back 01/27/[address] [facility] 01-27-2025 Miscellaneous Notes Completed and faxed back 01/27/25 Reviewed and signed Office received faxed from [facility] regarding patient on 01/23/25. Neuro checks completed and to follow for review. Please review fax and complete. Once complete fax back to [facility] at [phone]. Office received fax regarding patient on 01/20/25 with update regarding fall. Please review fax and note. Once complete fax back to [facility] at [phone] Routed to PCP. Vickie Mckeon MA documented in this encounter [facility] 01-26-2025 Telephone encounter Note Reviewed and signed [facility] 01-26-2025 Telephone encounter Note Office received faxed from [facility] regarding patient on 01/23/25. Neuro checks completed and to follow for review. Please review fax and complete. Once complete fax back to [facility] at [phone]. Office received fax regarding patient on 01/20/25 with update regarding fall. Please review fax and note. Once complete fax back to [facility] at [phone] Routed to PCP. Vickie Mckeon MA [facility] 12-23-2024 Telephone encounter Note Noted. Reba [facility] 12-23-2024 Miscellaneous Notes Noted. Reba Angie from [facility] calling to report patient had fall on 12/17/2024, no injury. She is bruised on her buttocks, and right ear. Patient not sure if she tried to get up with having her pants pulled up all the way. Needed help to return to her feet. Patient is d/c from OT today is doing transfers with no issues. documented in this encounter [facility] 12-23-2024 Telephone encounter Note Angie from [facility] calling to report patient had fall on 12/17/2024, no injury. She is bruised on her buttocks, and right ear. Patient not sure if she tried to get up with having her pants pulled up all the way. Needed help to return to her feet. Patient is d/c from OT today is doing transfers with no issues. [facility] 12-16-2024 Telephone encounter Note Home care Certification Form 485 received from [employer]. For cert dates 11/23/24-01/21/25 that were signed on 12/08/24. New Certification Patient's home health 485 form / care plan for stated certification period reviewed and signed. Relevant medical records were reviewed. No changes were indicated [facility] 12-16-2024 Miscellaneous Notes Home care Certification Form 485 received from [facility] [employer] For cert dates 11/23/24-01/21/25 that were signed on 12/08/24. New Certification Patient's home health 485 form / care plan for stated certification period reviewed and signed. Relevant medical records were reviewed. No changes were indicated documented in this encounter [facility] 11-26-2024 Telephone encounter Note Below response left on secure identified vm. Ameena Truong LPN [facility] 11-26-2024 Miscellaneous Notes Below response left on secure identified vm. Ameena Truong LPN OK for all [facility]. Florence with [facility] is calling with POC. Florence reports [...] Winifred Calixto LPN documented in this encounter [facility] 11-25-2024 Telephone encounter Note OK for all [facility]. [facility] 11-25-2024 Telephone encounter Note Florence with [facility] is calling with POC. Florence reports [...] and agreement with POC. Winifred Calixto LPN [facility] 11-18-2024 Telephone encounter Note Pt calls requesting a copy of DNR be mailed to her. Per Niki Anne RN it is ok to send. DNR mailed as requested. Winifred Calixto LPN [facility] 11-18-2024 Miscellaneous Notes Pt calls requesting a copy of DNR be mailed to her. Per Niki Anne RN it is ok to send. DNR mailed as requested. Winifred Calixto LPN documented in this encounter [facility] 11-14-2024 Telephone encounter Note Mami aware and states patient will be discharged but unsure if home or assisted living. States they are looking into this and will call office back with any new information or orders if needed. [facility] 11-14-2024 Miscellaneous Notes Mami aware and [...] Check with [facility] and/or patient Mami with [facility] calling to see if you will follow pt for PT and OT 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 Pt went home from [facility] on 11-06-24. Please advise Mami with verbal order. Okay to leave a detailed message. Karin Osorio LPN documented in this encounter [facility] 11-14-2024 Telephone encounter Note Will follow, but I thought patient was still at assisted living since got fax from nurse there about a prescription clarification. Check with [facility] and/or patient 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 Pt went home from [facility] on 11-06-24. Please advise Mami with verbal order. Okay to leave a detailed message. Karin Osorio LPN [facility] 11-04-2024 Telephone encounter Note Order for PT at [facility] was fax[facility]. [facility] 11-04-2024 Miscellaneous Notes Order for PT at [facility] was faxed to [facility]. Spoke with patient and advised that both PT for leg strength and hand can be faxed to [facility]. Patient advised that [facility] staff told her that they do not accept her insurance, so she is unsure of what is going on and where she will be going. Patient is calling [facility] to notify of the insurance situation and [...] Fax order Patient reports she is at [facility], Assisted Living, and would like an order for Physical Therapy there, to help strengthen her legs. She reports she uses a walker. Asking if PCP would place order. Pended. Please call patient with reply, and call [facility], assisted living nurse, with PT order update as well. [phone]. Meredith Varela, MARGOT documented in this encounter [facility] 11-03-2024 Telephone encounter Note Fax rec'd from [facility]. Last saw pcp 07/09/24. [facility] 11-03-2024 Miscellaneous Notes Fax rec'd from [facility]. Last saw pcp 07/09/24. documented in this encounter [facility] 10-31-2024 Telephone encounter Note Spoke with patient and advised that both PT for leg strength and hand can be faxed to [facility]. Patient advised that [facility] staff told her that they do not [...] and 10/31/24 to the appropriate care facility. [facility] 10-30-2024 Telephone encounter Note Filed differently as outside [facility] order but should work as well [facility] 10-30-2024 Telephone encounter Note TC to [...] call back with providers message. GLORIA Swanson [facility] 10-29-2024 Telephone encounter Note Fax order [facility] 10-29-2024 Telephone encounter Note Patient reports she is at [facility], Assisted Living, and would like an order for Physical Therapy there, to help strengthen her legs. She reports she uses a walker. Asking if PCP would place order. Pended. Please call patient with reply, and call [facility], assisted living nurse, with PT order update as well. [phone]. Meredith Varela RN [facility] 10-05-2024 Telephone encounter Note The following approved medication requests have been transmitted electronically. Requested Prescriptions Signed Prescriptions Disp Refills ALPRAZolam (XANAX) 0.25 mg tablet 14 tablet 0 Sig: Take 1 tablet by mouth once daily as needed for anxiety for up to 30 days. Authorizing Provider: ADEEL HAYES MD [facility] 10-05-2024 Miscellaneous Notes The following approved medication requests have been transmitted electronically. Requested Prescriptions Signed Prescriptions Disp Refills ALPRAZolam (XANAX) 0.25 mg tablet 14 tablet 0 Sig: Take 1 tablet by mouth once daily as needed for anxiety for up to 30 days. Authorizing Provider: ADEEL HAYES MD Spoke with nurse at [facility]. Order for medication needs to be sent to [facility]. Copy of this encounter has been faxed to [facility] at [phone] Noted last RX from 02/11 for 0.25mg pill Not sure where to send RX Since does not take often, i wrote for 1 pill once daily as needed for 14 pills; needs to have a time frame with Epic RX orders, so wrote for 30 days, but may keep the RX on hand at [facility] to keep on hand to use as needed for occasional episode of anxiety. Pt checking on her request for xanax Rx. See message below. Patient calls to ask if provider would send a small supply of xanax to [facility]. Patient reports in the past she has taken it rarely on an as needed basis and feels it would help her anxiety if she could have a small amount on hand at the facility. Patient reports if provider is agreeable to send to the nursing department at [facility]. Daniela Gordon RN documented in this encounter [facility] 10-04-2024 Telephone encounter Note Spoke with nurse at [facility]. Order for medication needs to be sent to [facility]. Copy of this encounter has been faxed to [facility] at [phone] [facility] 10-04-2024 Telephone encounter Note Noted last RX from 02/11 for 0.25mg pill Not sure where to send RX Since does not take often, i wrote for 1 pill once daily as needed for 14 pills; needs to have a time frame with Epic RX orders, so wrote for 30 days, but may keep the RX on hand at [facility] to keep on hand to use as needed for occasional episode of anxiety. [facility] 10-03-2024 Telephone encounter Note Pt checking on her request for xanax Rx. See message below. [facility] 09-25-2024 Telephone encounter Note Patient calls to ask if provider would send a small supply of xanax to [facility]. Patient reports in the past she has taken it rarely on an as needed basis and feels it would help her anxiety if she could have a small amount on hand at the facility. Patient reports if provider is agreeable to send to the nursing department at [facility]. Daniela Gordon RN [facility] 09-22-2024 Telephone encounter Note Gricelda nurse from [facility] called and is notified of providers message and instructions. She voices understanding and states they received the fax this morning. Deidra Flores RN [facility] 09-22-2024 Miscellaneous Notes Gricelda nurse from [facility] called and is notified of providers message and instructions. She voices understanding and states they received the fax this morning. Deidra Flores RN Noted The following approved medication requests have been transmitted electronically. Requested Prescriptions Signed Prescriptions Disp Refills sertraline (ZOLOFT) 25 mg tablet 90 tablet 3 Sig: Take 1 tablet by mouth once daily. Authorizing Provider: ADEEL HAYES MD Colette Whitten LPN from [facility] calls and states that patient has been on medication since being admitted to their facility on 08/04/2024. Medication was listed on patient's history and physical and other paperwork that was faxed over to [facility]. [facility] has not noticed any adverse effects while patient has been on medication. Patient has not be groggy. Colette would like for patient to continue medication since she has been taking this medication. Please review and advise, Carla Almonte RN Called and left a detailed voicemail notifying [facility] nurse [facility] of providers message. Clinic phone number [...] per Medication Dispense History. Fax rec'd from [facility] sertraline 25mg one tablet daily #90 with 3 refills. Please review. This medicine is not on pts med list. Last seen in office with pcp 07/09/24. documented in this encounter [facility] 09-22-2024 Telephone encounter Note Noted The following approved medication requests have been transmitted electronically. Requested Prescriptions Signed Prescriptions Disp Refills sertraline (ZOLOFT) 25 mg tablet 90 tablet 3 Sig: Take 1 tablet by mouth once daily. Authorizing Provider: ADEEL HAYES MD [facility] 09-22-2024 Telephone encounter Note Colette Whitten LPN from [facility] calls and states that patient has been on medication since being admitted to their facility on 08/04/2024. Medication was listed on patient's history and physical and other paperwork that was faxed over to [facility]. [facility] has not noticed any adverse effects while patient has been on medication. Patient has not be groggy. Colette would like for patient to continue medication since she has been taking this medication. Please review and advise, Carla Almonte RN [facility] 09-18-2024 Telephone encounter Note Called and left a detailed voicemail notifying [facility] nurse [facility] of providers message. Clinic phone number was left for the nurse to call back and answer providers questions. Called Pt and no answer. Pt did not have voicemail set up. Will need to call back. Deidra Flores RN [facility] 09-18-2024 Telephone encounter Note Verify with patient if she wants to take this med. Our medlist states that she either did not start the med or she stopped taking it due to thinking the med made her feel groggy. Looks like last time was filled was 06/23/24 per Medication Dispense History. [facility] 09-16-2024 Telephone encounter Note Fax rec'd from [facility] for sertraline 25mg one tablet daily #90 with 3 refills. Please review. This medicine is not on pts med list. Last seen in office with pcp 07/09/24. [facility] 09-16-2024 Telephone encounter Note Pt called in asking if Dr Hayes takes [facility]. I told her I didn't know, but I could send a message through to Dr Hayes's office. I also told her she could call her insurance company and they should have a list of providers they cover. [facility] 09-16-2024 Miscellaneous Notes Pt called in asking if Dr Hayes takes [facility]. I told her I didn't know, but I could send a message through to Dr Hayes's office. I also told her she could call her insurance company and they should have a list of providers they cover. documented in this encounter [facility] 09-09-2024 Note HNO ID: [id number] Author: VICTORIA ASHLEY, ? Service: ? Author [...] follow-up in 5 months Victoria Ashley DPM [facility] 09-09-2024 History of Present illness [...] Victoria Ashley DPM documented in this encounter [facility] 08-15-2024 Telephone encounter Note Noted. Adeel Hayes MD [facility] 08-15-2024 Miscellaneous Notes Noted. Adeel Hayes MD Spoke with pt, and given provider's message. Pt reports Thurs works good for her. Pt states Sun is probably not a good day. Pt hopes pcp lets her know when she is coming. Pt reports after the first of the year, she will have new insurance and the new insurance will cover the doctor there, Dr. Stack, but will not cover Dr. Hayes. Spoke with [facility] nurse, Corina, and asked about the items [...] Noted RE; request to be seen at [facility] (instead of coming to office). Will try to notify ahead of time. Verify if there are days of the week that she is usually not available. 2) Wonder if the wait for those things was due to not having all her admission orders right away when was admitted. In any case, can give order to [facility] that she may have band aids, polysporin, TUMS and PrepH in her room to use as needed per package directions. Clarify dose of Tylenol that she has that wants to dose self as needed and with [facility] if okay with order to self dispense Tylenol with an order as requested. Patient returns call and message reviewed. Patient requests that provider come to [facility] to visit and let her know ahead of time so she is available. Patient also asking for orders to be able to manage OTC treatments such as band aids, polysporin, Tums, preparation H, and tylenol specifically as it frustrating to have to wait for 2-3 days on nursing staff to provide. Daniela Gordon, RN Left a message for pt to call the office and ask to speak to a nurse. Karin Osorio LPN Phoned patient and call was hung up on. Try again later. I wrote an order on fax from [facility] earlier today to change Miralax to once daily prn 1) Can follow with patient at [facility] and round there as her PCP. She can still come to the office if she prefers. I think I completed forms for [facility] admission. 2) Okay to change Miralax to as needed. Can give verbal order to [facility] so they can send formal order for me to sign unless they need a printed order. 1)Patient calling recently moved to assisted living at [facility]. She is asking if Dr Hayes makes [...] there. Please advise documented in this encounter [facility] 08-15-2024 Telephone encounter Note Spoke with pt, and given provider's message. Pt reports [facility] works good for her. Pt states Sun is probably not a good day. Pt hopes pcp lets her know when she is coming. Pt reports after the first of the year, she will have new insurance and the new insurance will cover the doctor there, Dr. Stack, but will not cover Dr. Hayes. Spoke with [facility] nurse, Corina, and asked about the items [...] let pcp know what she finds out. [facility] 08-13-2024 Telephone encounter Note 1) Noted RE; request to be seen at [facility] (instead of coming to office). Will try to notify ahead of time. Verify if there are days of the week that she is usually not available. 2) Wonder if the wait for those things was due to not having all her admission orders right away when was admitted. In any case, can give order to [facility] that she may have band aids, polysporin, TUMS and PrepH in her room to use as needed per package directions. Clarify dose of Tylenol that she has that wants to dose self as needed and with [facility] if okay with order to self dispense Tylenol with an order as requested. [facility] 08-13-2024 Telephone encounter Note Patient returns call and message reviewed. Patient requests that provider come to [facility] to visit and let her know ahead of time so she is available. Patient also asking for orders to be able to manage OTC treatments such as band aids, polysporin, Tums, preparation H, and tylenol specifically as it frustrating to have to wait for 2-3 days on nursing staff to provide. Daniela Gordon RN [facility] 08-13-2024 Telephone encounter Note Left a message for pt to call the office and ask to speak to a nurse. Karin Osorio LPN [facility] 08-13-2024 Telephone encounter Note Phoned patient and call was hung up on. Try again later. [facility] 08-12-2024 Telephone encounter Note I wrote an order on fax from [facility] earlier today to change Miralax to once daily prn [facility] 08-12-2024 Telephone encounter Note 1) Can follow with patient at [facility] and round there as her PCP. She can still come to the office if she prefers. I think I completed forms for [facility] admission. 2) Okay to change Miralax to as needed. Can give verbal order to [facility] so they can send formal order for me to sign unless they need a printed order. [facility] 08-11-2024 Telephone encounter Note 1)Patient calling recently moved to assisted living at [facility]. She is asking if Dr Hayes makes [...] to notify the nurses there. Please advise [facility] 07-30-2024 Telephone encounter Note Attempted to contact Marva. Message was left asking her to return the call. Records that are currently available have been faxed to number listed below. [facility] 07-30-2024 Miscellaneous Notes Attempted to contact Marva. [...] check with them. Thanks. Kellie calling from [facility], she is requesting an order for admission to assisted living. Also asking when order is ready, to also fax face sheet, med list, H&P & ASHLEY to [phone]. Janet Frias LPN documented in this encounter [facility] 07-30-2024 Telephone encounter Note Please return [...] H&P then. Please check with them. Thanks. [facility] 07-30-2024 Telephone encounter Note Kellie calling from [facility], she is requesting an order for admission to assisted living. Also asking when order is ready, to also fax face sheet, med list, H&P & ASHLEY to [phone]. Janet Frias LPN [facility] 07-28-2024 Telephone encounter Note Noted, she is scheduled for an office visit next week, plan to discuss with the visit. [facility] 07-28-2024 Miscellaneous Notes Noted, she is [...] in the evening. documented in this encounter [facility] 07-23-2024 Telephone encounter Note Patient calling [...] and cut down fluids in the evening. [facility] 07-22-2024 Telephone encounter Note Noted, she has an appointment coming up on 08/04 so we can discuss the medication then and make changes if appropriate. [facility] 07-22-2024 Miscellaneous Notes Noted, she has [...] being the cause. documented in this encounter [facility] 07-21-2024 Telephone encounter Note Sw spoke [...] Sw at any time for further assistance. [facility] 07-21-2024 Miscellaneous Notes Sw spoke with [...] $30 an hour. Sw and patient discussed [facility], [facility] and Sw provide that phone number to patient. Sw also provided patient with [facility] as an option for physician aide option. Sw provided patient with [facility] phone number to reach out to [place] office to check on madrid rates. Patient reports that she will call both [facility] and [facility] and obtain madrid quotes. Sw and patient discussed [facility] and Passport program. Sw noted that Passport is a Medicaid eligible program through [facility]. Sw noted nurse or social studies department chair makes home visit from [facility] for assessments and to determine eligibility. Patient notes that she does not want to apply for Medicaid at this time. Sw noted that she would check in later on next week to see if patient made determination on day care home provider agency or needs more options to check on. Sw called patient to discuss in home care and intermediate care questions. Patient notes that she is getting ready to go to an appt and asks this Sw to call her back tomorrow after 10am. Sw will try call to patient tomorrow after 10. documented in this encounter [facility] 07-18-2024 Telephone encounter Note Patient phoned [...] advise on atenolol possibly being the cause. [facility] 07-17-2024 Telephone encounter Note Sw called to follow up with patient regarding home care assistance noted below. No answer, Sw left message that SW will try call again beginning of next week 07/21 to check in with patient. [facility] 07-16-2024 Telephone encounter Note Patient calling to state after receiving home care instructions related to constipation earlier today, she was able to successfully have a bowel movement. Patient advised to contact PCP office for any further concerns or questions. Meredith Varela RN [facility] 07-16-2024 Miscellaneous Notes Patient calling to state after receiving home care instructions related to constipation earlier today, she was able to successfully have a bowel movement. Patient advised to contact PCP office for any further concerns or questions. Meredith Varela RN documented in this encounter [facility] 07-14-2024 Telephone encounter Note Spoke with patient and she will go back on the Doxepin 10 mg she stated that insurance would not cover the 6 mg dosing due to cost. She was unsure why that was the case. Does not want a new script sent to pharmacy. States she still has plenty left from last fill. [facility] 07-14-2024 Miscellaneous Notes Spoke with patient [...] Please advise and phone patient with reply: [phone] documented in this encounter [facility] 07-14-2024 Telephone encounter Note Okay to go back to the doxepin, med list updated, we can have her try the 6 mg dose of doxepin if still having falls at night secondary to this medication. [facility] 07-14-2024 Telephone encounter Note Patient reports Destini [...] Please advise and phone patient with reply: [phone] [facility] 07-12-2024 Telephone encounter Note Patient calling with [...] which a provider is not aware: Yes. [facility] 07-12-2024 Miscellaneous Notes Patient calling with concerns [...] not aware: Yes. documented in this encounter [facility] 07-11-2024 Telephone encounter Note See the other encounter regarding this. [facility] 07-11-2024 Miscellaneous Notes See the other [...] Request: Deny Medication Name: Doxepin Tab 6mg GPI/NDC: [id number] Decision Notes: DOXEPIN TAB 6MG is denied [...] by: yousif, R.Ph. documented in this encounter [facility] 07-11-2024 Telephone encounter Note Noted, follow up at upcoming visit [facility] 07-11-2024 Telephone encounter Note Sw spoke with patient and reports that that she spoke with [facility] and was told they would cost $30 an hour. Sw and patient discussed [facility], [facility] and Sw provide that phone number to patient. Sw also provided patient with [facility] as an option for physician aide option. Sw provided patient with [facility] phone number to reach out to [place] office to check on madrid rates. Patient reports that she will call both [facility] and [facility] and obtain madrid quotes. Sw and patient discussed [facility] and Passport program. Sw noted that Passport is a Medicaid eligible program through [facility]. Sw noted nurse or social studies department chair makes home visit from [facility] for assessments and to determine eligibility. Patient notes that she does not want to apply for Medicaid at this time. Sw noted that she would check in later on next week to see if patient made determination on day care home provider agency or needs more options to check on. [facility] 07-11-2024 Telephone encounter Note PATIENT NOTIFIED OF SAME. [facility] 07-11-2024 Miscellaneous Notes PATIENT NOTIFIED OF [...] patient with reply. documented in this encounter [facility] 07-11-2024 Telephone encounter Note We had discussed with her visit that the goal is to reduce her falls at night time, it seems the doxepin is contributing to this. I would like her to stop the doxepin and start Zoloft as this should not cause as much tiredness/drowsiness as the doxepin does. [facility] 07-10-2024 History of Present illness Narrative Images [...] Dr. Debra Silva (ophthalmology), Dr. Denny Briseno (fruit room hand) Medical/Family history review Reviewed and updated problem [...] with the left wrist surgery performed in [place] and the right wrist surgery in [place]. She reports occasional pain in her wrists, [...] of nearby family. She has considered using [employer] transportation services but is unsure of their [...] Conducted comprehensive wellness examination as required by [facility]. - Reviewed and updated patient's [...] to strengthen muscles and improve balance, including pega developer exercises, soup can exercises, and walking with [...] Dr. Debra Silva (ophthalmology), Dr. Denny Briseno (fruit room hand) Medical/Family history review Reviewed and updated problem [...] with the left wrist surgery performed in [place] and the right wrist surgery in [place]. She reports occasional pain in her wrists, [...] of nearby family. She has considered using [employer] transportation services but is unsure of their [...] Conducted comprehensive wellness examination as required by [facility]. - Reviewed and updated patient's [...] to strengthen muscles and improve balance, including pega developer exercises, soup can exercises, and walking with [...] Adeel Hayes MD documented in this encounter [facility] 07-10-2024 Telephone encounter Note Patient phoned [...] Please advise and phone patient with reply. [facility] 07-10-2024 Telephone encounter Note Sw called patient to discuss in home care and terminal press operator care questions. Patient notes that she is getting ready to go to an appt and asks this Sw to call her back tomorrow after 10am. Sw will try call to patient tomorrow after 10. [facility] 07-10-2024 Telephone encounter Note Called pt to review. She declines to try a formulary medicine. She is reluctant to start a new medicine. She will continue the doxepin 10mg She then reports she never started the zoloft from 06/23/24 when she saw Destini. She is asking if she should start this? [facility] 07-10-2024 Telephone encounter Note Electronic PA rec'd and completed for doxepin 6mg. This was reviewed and denied. Patient Name: Dodie Li Patient : 1945 Status of Request: Deny Medication Name: Doxepin Tab 6mg [facility]/NDC: [id number] Decision Notes: DOXEPIN TAB 6MG is denied [...] are not appropriate for you. Reviewed by: Loagn dodd.Ph. [facility] 07-09-2024 Instructions Adeel Hayes MD - 07/09/2024 [...] your vision impairment. - Contact a social studies department chair to discuss options for home health services [...] to vision impairment. documented in this encounter [facility] 07-09-2024 History of Present illness Narrative This note was created using [employer]. Subjective Dodie Li is a 78 year [...] She activated her medical alert system, and sewer repairer responded, having to unlock the door to [...] Take 1,000 mcg by mouth once daily. [id number] ORAL Take 1 tablet by mouth once [...] eye care specialists. - Referred to social studies department chair Ashley Olmos for assistance with home health options [...] Adeel Hayes MD documented in this encounter [facility] 07-04-2024 Telephone encounter Note Patient reports she spoke to someone earlier this morning that was going to schedule and appt with pcp for her. Asking if an appt was scheduled. Advised patient she is scheduled with pcp on 07-09-24 @ 2:40 pm. Patient states she needed to know this so she can arrange for transportation. [facility] 07-04-2024 Miscellaneous Notes Patient reports she spoke to someone earlier this morning that was going to schedule and appt with pcp for her. Asking if an appt was scheduled. Advised patient she is scheduled with pcp on 07-09-24 @ 2:40 pm. Patient states she needed to know this so she can arrange for transportation. documented in this encounter [facility] 06-23-2024 Telephone encounter Note Pt called in to have referral to [facility] faxed along with supporting information, face sheet, office notes and referral. Fax to [phone]. I also called [facility] to verify what they needed. Faxed everything and notified pt. Karin Osorio LPN [facility] 06-23-2024 Miscellaneous Notes Pt called in to have referral to [facility] faxed along with supporting information, face sheet, office notes and referral. Fax to [phone]. I also called [facility] to verify what they needed. Faxed everything and notified pt. Karin Osorio LPN documented in this encounter [facility] 06-23-2024 History of Present illness Narrative SUBJECTIVE [...] Take 1,000 mcg by mouth once daily. [id number] ORAL Take 1 tablet by mouth once [...] medication.. MARQUIS Arredondo documented in this encounter [facility] 06-23-2024 Telephone encounter Note Patient calls [...] scheduled to see Destini talavera 06/23/2024. Carla Almonte RN [facility] 06-23-2024 Miscellaneous Notes Patient calls with [...] scheduled to see Destini talavera 06/23/2024. Carla Almonte RN documented in this encounter [facility] 06-13-2024 Telephone encounter Note Carla Hinojosa calls to let provider know that they are unable to accept referral for HH d/t patients insurance. Attempted to contact patient with no answer and not able to leave a message. Daniela Gordon, RN [facility] 06-13-2024 Miscellaneous Notes Carla with [facility] calls to let provider know that they are unable to accept referral for HH d/t patients insurance. Attempted to contact patient with no answer and not able to leave a message. Daniela Gordon RN Most recent home health services noted in chart was through [facility]. Spoke with patient to confirm this was so and order for PT was faxed to [facility]. PT would be a good idea, orders placed for in home PT with [facility], please fax orders. Patient calls and states that at last appointment provider had discussed with her that she may benefit from more physical therapy. Patient asking provider if she thinks that would be beneficial and if she does if orders can be place for home physical therapy? Patient had used [facility] previously for home health. Please review and advise, Carla Almonte RN documented in this encounter [facility] 06-13-2024 Telephone encounter Note Most recent home health services noted in chart was through [facility]. Spoke with patient to confirm this was so and order for PT was faxed to [facility]. [facility] 06-11-2024 Telephone encounter Note PT would be a good idea, orders placed for in home PT with [facility], please fax orders. [facility] 06-10-2024 Telephone encounter Note Patient calls and states that at last appointment provider had discussed with her that she may benefit from more physical therapy. Patient asking provider if she thinks that would be beneficial and if she does if orders can be place for home physical therapy? Patient had used [facility] previously for home health. Please review and advise, Carla Almonte RN [facility] 05-28-2024 Instructions Adeel Hayes MD - 05/28/2024 4:27 PM EDT -Continue your home exercises for balance and strength, as previously instructed by physical therapy. - For hand strength and coordination, consider using a pega developer strengthener or squeezing a soft ball. You can also practice picking up small objects like coins or marbles. - For arm strength, you can use light weights like soup cans or water bottles. Perform exercises like bicep curls and tricep extensions. If you experience discomfort, start with tax associate weights or no weight at all. - [...] review all the medicines you take, even fatv-bhh-ykhwiph medicines. As you get older, the way [...] certain medical conditions. documented in this encounter [facility] 05-06-2024 Telephone encounter Note The patient has [...] Varela RN May 06, 2024 9:[address] [facility] 05-06-2024 Miscellaneous Notes The patient has [...] 2024 9:53 AM documented in this encounter [facility] 04-24-2024 Telephone encounter Note Patient notified of providers message and verbalized understanding. Medicare wellness scheduled. [facility] 04-24-2024 Miscellaneous Notes Patient notified of [...] and if so please let pt know. Karin Osorio LPN Pt calls to reports she does not eat enough fruits and vegetables and would like to take a supplement: Balance Nature. Pt reports there is one for fruits and one for vegetables. Pt is asking if it is ok to take this. Winifred Calixto LPN documented in this encounter [facility] 04-24-2024 Telephone encounter Note Noted that patient needs Medicare AWV--see if wants to come in for that (covered by insurance) and can discuss vitamins at that time. If she already bought the vitamins, an compare bottles of what she has and decide what to stay on and what to stop. [facility] 04-22-2024 Telephone encounter Note Pt called back and had another question in addition to below. If it is okay to take the Nature's Balance does she need to stop some of the other OTC vitamins she is taking and if so please let pt know. Karin Osorio LPN [facility] 04-22-2024 Telephone encounter Note Pt calls to reports she does not eat enough fruits and vegetables and would like to take a supplement: Balance Nature. Pt reports there is one for fruits and one for vegetables. Pt is asking if it is ok to take this. Winifred Calixto LPN [facility] 04-08-2024 History of Present illness Narrative Subjective: Patient presents to clinic c/o painful toenails. They state that the nails are especially painful with shoe gear and pressure. No other pedal complaints at this time. Patient states no change in medications or medical history since last visit. Objective: Patient presents to clinic amb[facility] in [facility] Vasc: DP and PT pulses are [...] care. ASHLEY 12/18/23 documented in this encounter [facility] 03-24-2024 Telephone encounter Note Added result note: Labs all within normal limits except for mildly elevated BUN. Patient was already counseled to drink more water on a regular basis to maintain hydration. No further recommendations needed [facility] 03-24-2024 Miscellaneous Notes Added result note: [...] call and advise/. documented in this encounter [facility] 03-24-2024 Telephone encounter Note Pt called [...] back to her. Please call and advise/. [facility] 03-21-2024 Telephone encounter Note Home care Certification Form 485 received from [facility]. For cert dates 02/10/2024-04/09/2024 that were signed on 02/19/2024. Recertification Patient's home health 485 form / care plan for stated certification period reviewed and signed. Relevant medical records were reviewed. No changes were indicated [facility] 03-21-2024 Miscellaneous Notes Home care Certification Form 485 received from [facility]. For cert dates 02/10/2024-04/09/2024 that were signed on 02/19/2024. Recertification Patient's home health 485 form / care plan for stated certification period reviewed and signed. Relevant medical records were reviewed. No changes were indicated documented in this encounter [facility] 03-13-2024 Telephone encounter Note Pt called and is notified of providers message. Pt voices understanding. Deidra Babulski, RN [facility] 03-13-2024 Miscellaneous Notes Pt called and is notified of providers message. Pt voices understanding. Deidra Florse RN The following approved medication requests have been transmitted electronically. Requested Prescriptions Signed Prescriptions Disp Refills doxepin capsule 10 mg 90 capsule 3 Sig: Take 1 capsule by mouth daily at bedtime. Authorizing Provider: ADEEL HAYES MD Pt reports she accidentally had provider send medication to [email or web address] and she alonso get them cheaper through [facility]. Please send to [facility] in [place] and call Pt once sent. Prescription Refill [...] 2024 8:18 AM documented in this encounter [facility] 03-13-2024 Telephone encounter Note The following approved medication requests have been transmitted electronically. Requested Prescriptions Signed Prescriptions Disp Refills doxepin capsule 10 mg 90 capsule 3 Sig: Take 1 capsule by mouth daily at bedtime. Authorizing Provider: ADEEL HAYES MD [facility] 03-13-2024 Telephone encounter Note Pt reports she accidentally had provider send medication to [email or web address] and she alonso get them cheaper through [facility]. Please send to [facility] in [place] and call Pt once sent. Prescription Refill [...] Flores RN March 13, 2024 8:[address] [facility] 03-12-2024 Instructions Adeel Hayes MD - 03/12/2024 10:27 AM EDT Okay to try half pill Zoloft nightly with 10mg Doxepin. Can adjust doses as needed. May increase Zoloft to whole pill as needed. documented in this encounter [facility] 03-12-2024 History of Present illness Narrative This note was created using [employer]. Subjective Dodie Li is a 78 year [...] daily. (Patient not taking: Reported on 03/12/2024) [id number] ORAL Take 1 tablet by mouth once [...] Adeel Hayes MD documented in this encounter [facility] 02-19-2024 Telephone encounter Note Sw spoke with patient regarding transportation and social programs in the community. Patient reports that she has macular degeneration. Patient reports that she did go and sign up for [employer] vouchers. Discussed [employer] and their program that offers transportation to medical and non medical, stores and other appts, safety home modifications, scam awareness and bill pay IT assistance. Patient reports that she did sign up for [employer] Day activities and was told about marjorie to attend daily. Patient reports with marjorie assistance she could attend [employer] a couple of times a month. Sw also provided patient with [email or web address] phone number for [employer] program. Patient reports that she uses a large magnifier but was looking for another magnifying option to help with reading. Sw also noted that she will mail out [employer] Older Adult resource guide to patient home. Patient thanked Sw for the call and will speak with [employer] to see about transportation assistance to stores and medical appts. [facility] 02-19-2024 Miscellaneous Notes Sw spoke with patient regarding transportation and social programs in the community. Patient reports that she has macular degeneration. Patient reports that she did go and sign up for [employer] vouchers. Discussed [employer] and their program that offers transportation to medical and non medical, stores and other appts, safety home modifications, scam awareness and bill pay IT assistance. Patient reports that she did sign up for [employer] Day activities and was told about marjorie to attend daily. Patient reports with marjorie assistance she could attend [employer] a couple of times a month. Sw also provided patient with [email or web address] phone number for [employer] program. Patient reports that she uses a large magnifier but was looking for another magnifying option to help with reading. Saad also noted that she will mail out [facility] Older Adult resource guide to patient home. Patient thanked Saad for the call and will speak with Diane to see about transportation assistance to stores and medical appts. Saad left message for patient to return call to discuss transportation and community socialization agency info. documented in this encounter [facility] 02-15-2024 Telephone encounter Note Saad left message for patient to return call to discuss transportation and community socialization agency info. [facility] 02-12-2024 History of Present illness Narrative [...] Take 1,000 mcg by mouth once daily. [id number] ORAL Take 1 tablet by mouth once [...] for and when to seek medical attention. [facility]. All prescriptions have [...] Destini Lee APRN-MERARI documented in this encounter [facility] 01-23-2024 Miscellaneous Notes Patient calls and notified of provider recommendations below. Patient voices understanding. Carla Almonte RN I am not familiar enough with [facility] to know whether she would benefit from [...] other vitamins? Please review and advise, Carla Almonte RN Also see previous message regarding injection of eye. Patient calling and states that she see medical authorization specialist for her macular degeneration. Patient states that specialist is recommending that she get Syfovre injections to her eyes. Patient is wanting to know Dr. Hayes thoughts on this and whether or not PCP thinks she should go ahead and start getting injections? Please review and advise, Carla Almonte RN documented in this encounter [facility] 12-21-2023 History of Present illness Narrative POPULATION HEALTH NAVIGATION OUTREACH Action/FYI msg to schedule wellness Reason for Outreach Care Gap/HCC or Scheduling Wellness Visits Care Gaps due: Medicare Annual Wellness Visit Patient Contacted: Unable or unnecessary to reach patient: Left message Navigation Signature: Gauri Mcleod MA December 21, 2023 2:19 PM documented in this encounter [facility] 12-18-2023 History of Present illness Narrative [...] and I have asked that patient use [place] [facility] to file Patient is to RTC in 3-4 months. Victoria Ashley DPM Patient presents with: Left Foot - Established Patient, Debridement of Nail Right Foot - Established Patient, Debridement of Nail documented in this encounter [facility] 12-10-2023 Miscellaneous Notes Spoke with patient. [...] want to be put on a medication terminal press operator but asking if there is anything to take short term? Please review and advise, Carla Almonte RN documented in this encounter [facility] 11-30-2023 Instructions Adeel Hayes MD - [...] usual activities immediately. documented in this encounter [facility] 11-30-2023 History of Present illness Narrative This note was created using [employer]. Subjective Dodie Li is a 78 year [...] essential hypertension Current Outpatient Medications Medication Sig [id number] ORAL Take 1 tablet by mouth once [...] she get HEP from PT (done at [facility]) to help with improving strength and stamina s/p right hip replacement. Further evaluation and treatment as indicated. I spent a total of 32 minutes on the date of the service which included completing clinical documentation, obtaining and/or reviewing separately obtained history, performing a medically appropriate examination, and counseling and educating the patient/family/caregiver. Adeel Hayes MD documented in this encounter [facility] 11-14-2023 Miscellaneous Notes Pt notified that [...] USPS. Address verified. documented in this encounter [facility] 09-18-2023 Instructions Adeel Hayes MD - [...] usual activities immediately. documented in this encounter [facility] 09-18-2023 History of Present illness Narrative This note was created using [employer]. Subjective Dodie Li is a 78 year old female. Patient presents with: F/U 6 months SUBJECTIVE: Dodie Li is a 78 year old year old lady here today for 6 month follow up appointment for review of medical conditions. Noted decreased hearing. Been gradual. 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 [...] loss type H91.93 Plans to go to [facility]. Above issues addressed with patient. Patient involved [...] and adequate sleep. Plans to go to [facility] for hearing aid assessment. Adeel Hayes MD documented in this encounter [facility] 09-03-2023 History of Present illness Narrative Subjective: Patient presents to clinic c/o painful toenails. They state that the nails are especially painful with shoe gear and pressure. Patient states that nails 1-5 b/l are painful. No other pedal complaints at this time. Patient states no change in medications or medical history since last visit. Objective: Patient presents to clinic ambulating in [facility] Vasc: DP and PT pulses are faintly [...] Sabina Briseno LPN documented in this encounter [facility] 08-14-2023 Miscellaneous Notes Pt calling in [...] Staci Botello LPN documented in this encounter [facility] 08-07-2023 Miscellaneous Notes Date of last office: 03/10/2023 Date of next office visit: 09/18/2023 Requested Prescriptions Pending Prescriptions Disp Refills omeprazole (PRILOSEC) 20 mg capsule 90 capsule 3 Sig: Take 1 capsule by mouth once daily. Date of Last Labs: 03/09/2023 Please advise. Thank you. Carla Almonte RN. documented in this encounter [facility] 06-08-2023 Miscellaneous Notes The following approved [...] Jared Benedict LPN documented in this encounter [facility] 05-21-2023 History of Present illness Narrative [...] SURGICAL HISTORY OF wrist surgery right in [place] PAST SURGICAL HISTORY OF wrist surgery left in [place] PAST SURGICAL HISTORY OF fissurectomy PAST SURGICAL [...] removal. Victoria Ashley DPM Podiatry [address] [facility] [place] [address] Dept: [phone] Dept Patient presents with: Left Foot - New Right Foot - New Patient reports no pain at this time. She reports having previous ingrown great toe nails treated by another provider. documented in this encounter [facility] 03-26-2023 Miscellaneous Notes OK, please schedule Patient calls and states that she continues to have issues with her left big toe nail. Patient states that it is not growing right. Patient asking for a podiatry referral to Dr. Ashley to discuss this. Patient had see Dr. Ashley in 2018 for this issue. Please review and advise, Carla Almonte RN documented in this encounter [facility] 03-10-2023 History of Present illness Narrative This note was created using [employer]. Subjective Dodie Li is a 77 year [...] Abs Lymph 1.00 - 4.00 k/uL 2.11 Rogers% % 8.0 Abs Rogers <0.87 k/uL 0.56 Eosin% % 4.0 Abs [...] Continue present management. Can follow up with census enumerator as needed for thickened toenails. Adeel Hayes MD documented in this encounter [facility] 03-08-2023 Miscellaneous Notes Patient notified of [...] Winifred Calixto LPN documented in this encounter [facility] 02-12-2023 Miscellaneous Notes Patient notified of [...] again. Please advise documented in this encounter [facility] 02-01-2023 Miscellaneous Notes Patient suspects she [...] now. 9. : No Protocols used: Insect [id number] documented in this encounter [facility] 01-08-2023 Procedure note [facility] 12-20-2022 Miscellaneous Notes The following approved [...] Last Labs: 01/18/2022 documented in this encounter [facility] 12-12-2022 Miscellaneous Notes Pt reports she [...] Winifred Calixto LPN documented in this encounter [facility] 11-24-2022 Miscellaneous Notes Call placed to [...] pain related to her broken arm by [facility]. The bottle she was given reads [...] Daniela Gordon RN documented in this encounter [facility] 11-18-2022 Miscellaneous Notes Patient called and [...] Winifred Calixto LPN documented in this encounter [facility] 11-17-2022 History of Present illness Narrative Images from the original note were not included. Subjective The history is provided by the patient. No specialized language instructor was used. HPI Dodie Li is a [...] have confirmed and edited as necessary, the [facility] Review of Systems Constitutional: Negative for chills [...] Griselda Smiley APRN.MERARI documented in this encounter [facility] 10-26-2022 Miscellaneous Notes Rx sent Pt calling and was seen for an yeast infection. She has taken the medication given and there is just a little left. Pt requesting an other prescription to make sure it goes completely away. Please advise pt. Okay to leave a message. Karin Osorio LPN documented in this encounter [facility] 10-13-2022 Miscellaneous Notes Sw reviewed [facility], [facility], [facility], and [facility] numbers. Patient was able to write down numbers and read them back to SW. Patient notes that she will work on reaching out to these agencies to see about staffing availability options for patient. Patient reports [facility] tells her they are unable to help her due to staffing. Reports her cousin, Juanita, was suppose to help her today, but Juanita is sick. Asking if SW has any other options for her? Please advise patient. Sw spoke with patient and provided her with [facility], [facility], and [facility] numbers to see about day care home provider to help with bathing/grooming. Patient cousin Shreya took down information and will let Sw know if those agencies do not work and they need more options. Sw called and spoke with patient and she asks that Sw call back in a little while to speak with her cousin in regards to day care home provider agencies in community. Sw noted self pay for day care home provider unless on Passport/AAA. Patient notes that she is concerned with bathing/grooming due to treating a yeast infection in vaginal area. Patient notes with broken arm it is hard to take care of personal care. Sw notes that she will call patient back between 3 and 3:15 to speak with cousin so that she can write down names and numbers for local day care home provider agencies. Sw left message for patient letting her know that she has listing of home skin care specialist agencies ie. [facility], [facility], [facility]. Sw can mail patient listing. These are self pay unless on Medicaid and receives Passport Services. Saad notes patient is on Medicare and does not see any mention of Medicaid. Saad noted that patient can call Sw back and let her know if she would like Sw to mail names and numbers to patient for her to contact to set up day care home provider assistance. Patient calling to follow-up on request for a social studies department chair to assist with her request for a possible HHC. See OV note 10/04/22 for note to social studies department chair. Patient states she lives alone and would like assistance as soon as possible. Please advise patient. Thank you. documented in this encounter [facility] 10-04-2022 Instructions Adeel Hayes MD - [...] dose if needed. documented in this encounter [facility] 10-04-2022 History of Present illness Narrative This note was created using Secure [employer]. Subjective Dodie Li is a 77 year old female. Patient presents with: Established Patient: Broke right arm and needi [facility] to assist with care SUBJECTIVE: Dodie Li is a 77 year old year old lady here today for follow up appointment for review of medical conditions. Noted that having ongoing issue with resolving yeast infection. Has some help but needs more assistance and would like to see about aides. Tried to call [employer] but customer account coordinator not helpful. Thought needed help for another week to do one of the treatments. Noted will need about another 4 weeks with cast on. Would like to see about aide to help for next 4 weeks. [place] [place] [facility]--was treated by her eye doctor. Treated for 10 days. Doing well. Following with [facility] for right arm fracture. PAST MEDICAL HISTORY [...] (Patient not taking: Reported on 10/04/2022) vit A,C,B-Mzcj-Yqjyhh 7,160-113-100 pjse-yp-jykr ORAL Tab Take by mouth. As directed. [...] Diagnosis ICD-10-CM 1. Candidal intertrigo B37.2 2. 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 09-30-2022 Miscellaneous Notes Called pt and [...] to call number to approve HH through [employer] but message says number you have dialed [...] order for Home Health be called to [employer]. Call Janette at [phone]. Dr. Newman's office was to have called but never did and Janette told patient that if PCP would place order then patient could be set up with home health sooner than waiting for Dr. Newman's office to take care of order. Please call patient once this has been completed. documented in this encounter [facility] 09-30-2022 Miscellaneous Notes Pt notified. The [...] sweat. MANUEL Leary. documented in this encounter [facility] 09-28-2022 History of Present illness Narrative [...] history is provided by the patient. No specialized language instructor was used. ROS Objective Physical Exam Constitutional: [...] SURGICAL HISTORY OF wrist surgery right in [place] PAST SURGICAL HISTORY OF wrist surgery left [place] PAST SURGICAL HISTORY OF fissurectomy PAST SURGICAL [...] 81 mg by mouth once daily. vit A,C,V-Ajiv-Whfmbs 7,160-113-100 lnax-ad-brho ORAL Tab Take by mouth. As directed. [...] Melina Doan APRN.MERARI documented in this encounter [facility] 09-28-2022 Instructions Melina Doan APRN.MERARI - [...] all of those. documented in this encounter [facility] 09-28-2022 Miscellaneous Notes Patient reports she is having s/s of yeast infection in zac area. Reports she broke her right arm and unable to wipe good enough when using bathroom. Asking if provider can send Rx to pharmacy. Advised would need to be seen. Patient declined same day appt with [facility] this afternnoon. States she has another doctor appt this morning and plans to just stop at [facility] for evaluation. documented in this encounter [facility] 09-22-2022 Miscellaneous Notes Patient aware of [...] call and advise. documented in this encounter [facility] 09-20-2022 Miscellaneous Notes PT stated Charisse Atkinson will be picking up CD. Sheila PSS CD/report READY FOR ANIMAL PARK CODE ENFORCEMENT OFFICER AT [facility] Patient requesting report and cd of xray performed on 09/18/22. Patient broke right arm she will send someone to cigar packer and picker records. Patient cannot drive nor write due to injury. Please call patient to get a verbal auth. documented in this encounter [facility] 09-18-2022 History of Present illness Narrative [...] 2022 6:43 PM documented in this encounter [facility] 09-18-2022 History of Present illness Narrative [...] history is provided by the patient. No specialized language instructor was used. Trauma Review of Systems Constitutional: [...] SURGICAL HISTORY OF wrist surgery right in [place] PAST SURGICAL HISTORY OF wrist surgery left [place] PAST SURGICAL HISTORY OF fissurectomy PAST SURGICAL [...] 81 mg by mouth once daily. vit A,C,E-Umnz-Owoqfy 7,160-113-100 lafs-gr-vpct ORAL Tab Take by mouth. As directed. [...] ICD9: 780.96, ICD10: R52 - XR SHOULDER [id number] AP/TRUE AP RIGHT - XR FOREARM GENERAL [...] IMPRESSION: No acute osseous abnormalities are identified. Medicare Compliance Auditor: FriendsClear Transcribe Date/Time: Sep 18 2022 7:31P Dictated [...] IMPRESSION IMPRESSION: Distal radial and ulnar fractures. Medicare Compliance Auditor: FriendsClear Transcribe Date/Time: Sep 18 2022 7:33P Dictated [...] IMPRESSION: No acute osseous abnormalities are identified. Medicare Compliance Auditor: KATE Transcribe Date/Time: Sep 18 2022 7:37P Dictated [...] IMPRESSION IMPRESSION: Distal radial and ulnar fractures. Medicare Compliance Auditor: KATE Transcribe Date/Time: Sep 18 2022 7:35P Dictated by : MONISHA CARVALHO MD Patient was placed in a sugar-tong splint. Custom made Ortho-Glass splint. Patient was then placed in a sling. Patient will just take wnel-uey-ifsouuz Tylenol as she does not want to be any in any form of grogginess. Did instruct the family that someone should stay with her over the next few days until her orthopedic appointment on Sunday. To help patient now they said they would accommodate that. Patient was okay with this care plan. Melina Doan APRN.CNP documented in this encounter [facility] 08-18-2022 Miscellaneous Notes Patient is looking into switching insurance and if her potassium is switched to Micro K 10 ERICH it will be a 0 co-pay. She is not needing this now just as a reminder at the first of the year when due for refill. documented in this encounter [facility] 08-16-2022 Miscellaneous Notes Noted. Will review [...] Itchy, but not red. Protocols used: Immunization [id number] documented in this encounter [facility] 08-14-2022 Instructions Adeel Hayes MD - [...] usual activities immediately. documented in this encounter [facility] 08-14-2022 History of Present illness Narrative This note was created using [employer]. Subjective Dodie Li is a 77 year [...] 81 mg by mouth once daily. vit A,C,U-Xhla-Pkmcfh 7,160-113-100 xxxa-mn-ziwv ORAL Tab Take by mouth. As directed. [...] Adeel Hayes MD documented in this encounter [facility] 06-21-2022 Miscellaneous Notes The following approved [...] Last Labs: 01/18/2022 documented in this encounter [facility] 04-07-2022 Miscellaneous Notes The following approved medication requests have been transmitted electronically. Signed Prescriptions Disp Refills gemfibrozil (LOPID) 600 mg tablet 20 tablet 0 Sig: Take 1 tablet by mouth twice daily. COBY: No Authorizing Provider: ADEEL HAYES MD Pt called in and reports she is almost out of medication and asking for short term to be sent to [facility] while she waits for mail-in pharmacy. documented in this encounter [facility] 04-06-2022 Miscellaneous Notes Okayed Pt calling for refill. ASHLEY: 03/24/22 NOV: 08/14/22 Last Refill: Pt had been getting refills from Dr Pascual but states he is no [facility] & pt has not been to see another furnace checker. Pt asking if pcp will fill? Please notify pt . Janet Frias LPN documented in this encounter [facility] 03-31-2022 Miscellaneous Notes Pt called and is notified of providers results and instructions. Pt voices understanding. Deidra Flores RN Potassium is better but still low Increased to twice daily potassium pills and sent to [facility]. Can take 2 once daily if prefers. [...] Potassium level. Please review & advise. Ameena Truong LPN documented in this encounter [facility] 03-28-2022 Miscellaneous Notes Patient's request for medication is as follows: Signed Prescriptions Disp Refills doxepin capsule 25 mg 90 capsule 0 Sig: Take 1 capsule by mouth daily at bedtime. COBY: No Authorizing Provider: ADELE HAYES ALPRAZolam (XANAX) 0.5 mg tablet 30 [...] Ameena Truong LPN documented in this encounter [facility] 03-24-2022 History of Present illness Narrative This note was created using [employer]. Subjective Dodie Li is a 76 year old female. Patient presents with: Follow Up SUBJECTIVE: Dodie Li is a 76 year old year old lady here today for 6 month follow up appointment for review of medical conditions. Noted that sometimes hard to hear when in uatsdin and the speaker's voice trails off. Cannot [...] 81 mg by mouth once daily. vit A,C,O-Lmyq-Ewznim 7,160-113-100 uxma-iy-thqo ORAL Tab Take by mouth. As directed. [...] Abs Lymph 1.00 - 4.00 k/uL 2.11 Rogers% % 8.0 Abs Rogers <0.87 k/uL 0.56 Eosin% % 4.0 Abs [...] H91.93 Consider getting help for hearing aids. [employer] might help ASSESSMENT/PLAN: 1. Essential hypertension - [...] Adeel Hayes MD documented in this encounter [facility] 02-02-2022 Miscellaneous Notes Phoned patient and [...] okay to take Ginkgo biloba? Please advise. Karin Osorio LPN PT would like to know if she is still to be taking her medicine for allergies until she is seen again by . documented in this encounter [facility] 01-09-2022 Miscellaneous Notes Patient notified of [...] patient with reply. documented in this encounter [facility] 01-03-2022 Miscellaneous Notes Patient notified of providers message and verbalized understanding. Fasting labs ordered Malu Draper APRN.CNP Patient scheduled for follow up 02/03. Patient asking if Dr. Hayes would like for her to have lab draw prior to office visit. Please advise and call patient. Thank you documented in this encounter [facility] 12-31-2021 Miscellaneous Notes The following approved medication requests have been transmitted electronically. Signed Prescriptions Disp Refills benzonatate (TESSALON PERLES) 100 mg capsule 30 capsule 0 Sig: Take 1 capsule by mouth three times daily as needed for cough. COBY: No Authorizing Provider: ADEEL HAYES eszopiclone (LUNESTA) 3 mg tab 90 tablet [...] Daniela Gordon RN documented in this encounter [facility] Evaluation note Diagnosis Persistent disorder of initiating or maintaining sleep [facility] Hypertriglyceridemia- Primary Pure hyperglyceridemia Essential hypertension Unspecified essential hypertension Vitamin D deficiency Unspecified vitamin D deficiency [facility] Diagnosis Persistent disorder of initiating or maintaining sleep Anxiety state Anxiety state, unspecified [facility] Diagnosis Essential hypertension- Primary Unspecified essential hypertension Persistent disorder of initiating or maintaining sleep Vitamin D deficiency Unspecified vitamin D deficiency Hypokalemia Hypopotassemia Varicose veins of both lower extremities, unspecified whether complicated Hearing difficulty of both ears [facility] Diagnosis Hypokalemia- Primary Hypopotassemia [facility] Diagnosis Essential hypertension- Primary Unspecified [...] malignant neoplasms, colon [facility] noteNo assessment information availableWAshtabula [facility] Work Phone: Evaluation note* Diagnosis Pain- Primary Generalized pain [facility] Diagnosis Skin rash- Primary Rash and other nonspecific skin eruption [facility] Diagnosis Candidal intertrigo- Primary Candidiasis of skin and nails [place] [facility] disease of both eyes Closed fracture of right upper extremity, sequela [facility] Diagnosis Itching- Primary Unspecified pruritic disorder [facility] Diagnosis Toenail deformity- Primary Unspecified disease of nail [facility] Diagnosis Persistent disorder of initiating or maintaining sleep- Primary Candidal intertrigo Candidiasis of skin and nails Essential hypertension Unspecified essential hypertension Class 1 obesity due to excess calories without serious comorbidity with body mass index (BMI) of 34.0 to 34.9 in adult Screening for colon cancer Special screening for malignant neoplasms, colon [facility] Diagnosis Onychomycosis- Primary Dermatophytosis of nail Toenail deformity Unspecified disease of nail Pain in toe of left foot Pain in limb Pain in toe of right foot Pain in limb [facility] Diagnosis Anxiety state Anxiety state, unspecified [facility] Diagnosis Onychomycosis- Primary Dermatophytosis of nail Pain in toe of left foot Pain in limb Pain in toe of right foot Pain in limb [facility] Diagnosis Persistent disorder of initiating [...] hearing loss type [facility] [facility] Gait instability- Primary Abnormality of gait Status post right hip replacement Hip joint replacement by other means Asymptomatic postmenopausal status [facility] Diagnosis Onychomycosis- Primary Dermatophytosis of nail Pain in toe of left foot Pain in limb Pain in toe of right foot Pain in limb documented [facility] this 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 Diagnosis Persistent disorder of initiating or maintaining sleep documented in this [facility]* Diagnosis Persistent disorder of initiating or maintaining sleep- Primary Situational mixed anxiety and depressive disorder Adjustment disorder with mixed anxiety and depressed mood Gait instability Abnormality of gait Essential hypertension Unspecified essential hypertension Hypokalemia Hypopotassemia Screening for colon cancer Special screening for malignant neoplasms, colon Encounter for immunization Need for other specified prophylactic vaccination against single bacterial disease documented [facility] this [facility]* Diagnosis Aftercare following joint replacement surgery, unspecified joint- Primary documented [facility] Diagnosis Onychomycosis- Primary Dermatophytosis of nail Pain in toe of left foot Pain in limb Pain in toe of right foot Pain in limb documented [facility] Diagnosis HYPERTENSION NOS- Primary Unspecified [...] by other means documented in this [facility] Diagnosis HYPERTENSION NOS- Primary Unspecified [...] Diarrhea, unspecified type documented [facility] this [facility]* Diagnosis HYPERTENSION NOS- Primary Unspecified essential [...] care Routine general medical examination at a [facility] ANXIETY STATE NOS Anxiety state, unspecified Special screening for malignant neoplasm of colon Special screening for malignant neoplasms, colon Dry skin dermatitis Contact dermatitis and other eczema due to other specified agent Pain Generalized pain documented in this [facility]* Diagnosis HYPERTENSION NOS- Primary Unspecified essential [...] Hypertriglyceridemia Pure hyperglyceridemia documented in this [facility] Diagnosis HYPERTENSION NOS- Primary Unspecified [...] single bacterial disease documented in this [facility]* Diagnosis HYPERTENSION NOS- Primary Unspecified essential [...] Pain in limb documented [facility] Diagnosis HYPERTENSION NOS- Primary Unspecified [...] Anxiety state, unspecified documented [facility] Diagnosis HYPERTENSION NOS- Primary Unspecified [...] Muscle weakness (generalized) documented in this [facility]* Diagnosis HYPERTENSION NOS- Primary Unspecified essential [...] unspecified type- Primary documented in this [facility]* Diagnosis HYPERTENSION NOS- Primary Unspecified essential [...] of right foot documented [facility] Diagnosis HYPERTENSION NOS- Primary Unspecified [...] other eczema due to other specified agent Essential (primary) hypertension Unspecified essential hypertension Dizziness and giddiness Bilateral age-related macular degeneration Macular degeneration (senile) of retina, unspecified Adjustment disorder with mixed anxiety and depressed mood documented in this [facility]* Diagnosis HYPERTENSION NOS- Primary Unspecified essential [...] medical examination at a health care facility Hypotension, unspecified hypotension type Intertrigo Other specified erythematous condition Malaise Other malaise and fatigue Episodic lightheadedness Dizziness and giddiness Anemia, unspecified type Asymptomatic menopause Memory impairment Memory loss documented in this [facility]* Diagnosis HYPERTENSION NOS- Primary Unspecified essential [...] other eczema due to other specified agent Rash- Primary Rash and other nonspecific skin eruption Candidal intertrigo Candidiasis of skin and nails documented in this [facility]Reason [facility] (narrative)* Diagnostic Procedure Only (Urgent) - Closed Specialty Diagnoses / Procedures Referred By Contac t Referred To Contact XR IMAGING Diagnoses Pain Procedures XR HIP GENERAL 3V PELV/AP/LAT RIGHT RADEX HIP UNILATERAL WITH PELVIS 2-3 VIEWS Melina Doan APRN.[employer]KER [employer] INST[employer]ER [address] [place] [address] [place] [address] Referral ID Status Reason Start Date Expiration Date V isits Requested Visits Authorized [id number] Closed Auto-Generate d Referral 09/18/2022 10/18/2023 1 1 * Diagnostic Procedure Only (Urgent) - Closed Specialty Diagnoses / Procedures Referred By Contac t Referred To Contact XR IMAGING Diagnoses Pain Procedures XR SACRUM/COCCYX 3V AP/LAT RADEX SACRUM & COCCYX MINIMUM 2 VIEWS Melina Doan APRN.[employer] INSTALLER [address] [place] [address] [place] [address] Referral ID Status Reason Start Date Expiration Date V isits Requested Visits Authorized [id number] Closed Auto-Generate d Referral 09/18/2022 10/18/2023 1 1 * Diagnostic Procedure Only (Urgent) - Closed Specialty Diagnoses / Procedures Referred By Contac t Referred To Contact XR IMAGING Diagnoses Pain Procedures XR HAND GENERAL 3V PA/LAT/OBL RIGHT RADEX HAND MINIMUM 3 VIEWS Melina Doan APRN.[employer]ER [address] [place] [address] [place] [address] Referral ID Status Reason Start Date Expiration Date V isits Requested Visits Authorized [id number] Closed Auto-Generate d Referral 09/18/2022 10/18/2023 1 1 * Diagnostic Procedure Only (Urgent) - Closed Specialty Diagnoses / Procedures Referred By Contac t Referred To Contact XR IMAGING Diagnoses Pain Procedures XR FOREARM GENERAL 2V AP/LAT RIGHT RADEX FOREARM 2 VIEWS Melina Doan APRN.[employer]ER [address] [place] [address] [place] [address] Referral ID Status Reason Start Date Expiration Date V isits Requested Visits Authorized [id number] Closed Auto-Generate d Referral 09/18/2022 10/18/2023 1 1 * Diagnostic Procedure Only (Urgent) - Closed Specialty Diagnoses / Procedures Referred By Contac t Referred To Contact XR IMAGING Diagnoses Pain Procedures XR SHOULDER [id number] AP/TRUE AP RIGHT RADEX SHOULDER COMPLETE MINIMUM 2 VIEWS Melina Doan APRN.[employer] IN[employer]ER [address] [place] [address] [place] [address] Referral ID Status Reason Start Date Expiration Date V isits Requested Visits Authorized [id number] Closed Auto-Generate d Referral 09/18/2022 10/18/20[address] [facility] HospitalReason for referral (narrative)No reason for referral information availableWAshtabula County Medical [facility] Work Phone: Reason for visit Narrative* Diagnostic Procedure Only (Urgent) - Closed Specialty Diagnoses / Procedures Referred By Contac t Referred To Contact XR IMAGING Diagnoses Pain Procedures XR HIP GENERAL 3V PELV/AP/LAT RIGHT RADEX HIP UNILATERAL WITH PELVIS 2-3 VIEWS Melina Doan APRN.[employer] INST[employer]ER [address] [place] [address] [place] [address] Referral ID Status Reason Start Date Expiration Date V isits Requested Visits Authorized [id number] Closed Auto-Generate d Referral 09/18/2022 10/18/2023 [address] [facility] Reason for Referral Specialty Diagnoses / Procedures Referred By Contac t Referred To Contact Diagnoses Persistent disorder of initiating or maintaining sleep Adeel Hayes MD [address] [place] [address] Referral ID Status Reason Start Date Expiration Date V isits Requested Visits Authorized [id number] Authorized 1 1 Specialty Diagnoses / Procedures Referred By Contac t Referred To Contact Orthopedics Diagnoses Pain Procedures CONSULT TO ORTHOPAEDICS OFFICE/OUTPATIENT NEW HIGH MDM 60-74 MINUTES Melina Doan APRN.[employer] INST[employer]ER [address] [place] [address] Referral ID Status Reason Start Date Expiration Date Visits Requested Visits Authorized [id number] Authorized PCP Requested Referral 2 09/18/2023 1 1 Specialty Diagnoses / Procedures Referred By Contac t Referred To Contact XR IMAGING Diagnoses Pain Procedures XR HIP GENERAL 3V PELV/AP/LAT RIGHT RADEX HIP UNILATERAL WITH PELVIS 2-3 VIEWS Melina Doan APRN.[employer]ER [address] [place] [address] Xr Imaging Referral ID Status Reason Start Date Expiration Date V isits Requested Visits Authorized [id number] Closed Auto-Generate d Referral 09/18/2022 10/18/2023 1 1 Specialty Diagnoses / Procedures Referred By Contac t Referred To Contact XR IMAGING Diagnoses Pain Procedures XR SACRUM/COCCYX 3V AP/LAT RADEX SACRUM & COCCYX MINIMUM 2 VIEWS Melina Doan APRN.[employer] INSTALLER [address] [place] [address] Xr Imaging Referral ID Status Reason Start Date Expiration Date V isits Requested Visits Authorized [id number] Closed Auto-Generate d Referral 09/18/2022 10/18/2023 1 1 Specialty Diagnoses / Procedures Referred By Contac t Referred To Contact XR IMAGING Diagnoses Pain Procedures XR HAND GENERAL 3V PA/LAT/OBL RIGHT RADEX HAND MINIMUM 3 VIEWS Melina Doan APRN.[employer] INSTALLER [address] [place] [address] Xr Imaging Referral ID Status Reason Start Date Expiration Date V isits Requested Visits Authorized [id number] Closed Auto-Generate d Referral 09/18/2022 10/18/2023 1 1 Specialty Diagnoses / Procedures Referred By Contac t Referred To Contact XR IMAGING Diagnoses Pain Procedures XR FOREARM GENERAL 2V AP/LAT RIGHT RADEX FOREARM 2 VIEWS Melina Doan APRN.[employer] INSTALLER [address] [place] [address] Xr Imaging Referral ID Status Reason Start Date Expiration Date V isits Requested Visits Authorized [id number] Closed Auto-Generate d Referral 09/18/2022 10/18/2023 1 1 Specialty Diagnoses / Procedures Referred By Contac t Referred To Contact XR IMAGING Diagnoses Pain Procedures XR SHOULDER [id number] AP/TRUE AP RIGHT RADEX SHOULDER COMPLETE MINIMUM 2 VIEWS Melina Doan APRN.[employer] INST[employer]ER [address] [place] [address] Xr Imaging Referral ID Status Reason Start Date Expiration Date V isits Requested Visits Authorized [id number] Closed Auto-Generate d Referral 09/18/2022 10/18/2023 1 1 Specialty Diagnoses / Procedures Referred By Contac t Referred To Contact Podiatry Diagnoses Toenail deformity Procedures CONSULT TO PODIATRY OFFICE/OUTPATIENT NEW [facility] MDM 60-74 MINUTES Enriqueta Otto, [employer]RA[employer].FILM EDITOR [address] [place] [address] Referral ID Status Reason Start Date Expiration Date Visits Requested Visits Authorized [id number] Pending Review PCP Requested Referral 03/26/2023 03/25/2024 1 1 Specialty Diagnoses / Procedures Referred By Contac t Referred To Contact [facility] Diagnoses Gait instability Balance problems Repeated falls Status post right hip replacement Procedures CONSULT TO PHYSICAL THERAPY PHYSICAL THERAPY EVALUATION HIGH COMPLEX 45 MINS Destini Lee ENGRA[employer].BUTTON MAKER [employer] INSTALLER [address] [place] [address] [facility] [place] [address] [place] [address] Referral ID Status Reason Start Date Expiration Date Visits Requested Visits Authorized [id number] Pending Review Auto-Generat ed Referral 06/11/2024 06/11/2025 1 1 Specialty Diagnoses / Procedures Referred By Contac t Referred To Contact Physical Therapy Diagnoses Weakness of both lower extremities Gait instability Primary osteoarthritis of both knees S/P total right hip arthroplasty Procedures CONSULT TO PHYSICAL THERAPY Adeel Hayes MD [address] [place] [address] Referral ID Status Reason Start Date Expiration Date Visits Requested Visits Authorized [id number] Authorized PCP Requested Referral 10/29/2024 10/29/2025 1 1 Advance Directives No Advanced Directives Records FoundDocuments on File Type Date Recorded Patient Stereotyper Helper Expl anation Advance Directive(s) 04/24/2016 3:37 PM Advance Directive(s) 11/23/2006 12:00 AM Documents on File Type Date Recorded Patient Stereotyper Helper Expl anation Advance Directive(s) 04/24/2016 3:37 PM Advance Directive(s) 11/23/2006 12:00 AM Documents on File Type Date Recorded Patient Stereotyper Helper Expl anation Advance Directive(s) 04/24/2016 3:37 PM Advance Directive(s) 11/23/2006 Documents on File Type Date Recorded Patient Stereotyper Helper Expl anation Advance Directive(s) 04/24/2016 3:37 PM Advance Directive(s) 11/23/2006 Advance Directive Response Recorded Date/ Time Advance Directives Yes June 8:34am Living Will Yes November 24 2:30pm Power of Solutions Consultant Yes November 24, 2020 2:30pm Advance Directive Response Recorded Date/ Time Advance Directives Yes June 8:34am Family History No Family History Records Found Relationship Condition Age at Onset Recorded Date/T barrie mother Cardiac arrhythmia Unknown Malignant neoplasm Unknown father Myocardial infarction Unknown Coronary artery disease Unknown Bilateral carotid artery disease Unknown Chief Complaint and Reason for Visit Chief Complaint Paresthesia of skin Paresthesia of skin Chief Complaint Admit Date April 09, 2025 5:00a m Summary Purpose Additional Source Comments Source Comments (unrecognize d section and content) In the event this informatio n is protected by the Federal Confidentiality of Alcohol and Drug Abuse Patient Records regulations: The Federal rules restrict any use of the information to criminally investigate or prosecute any alcohol or drug abuse patient.[facility] HospitalIn the event this information is protected by the Federal Confidentiality of Alcohol and Drug Abuse Patient Records regulations: The Federal rules restrict any use of the information to criminally investigate or prosecute any alcohol or drug abuse patient.[facility] HospitalIn the event this information is protected by the Federal Confidentiality of Alcohol and Drug Abuse Patient Records regulations: The Federal rules restrict any use of the information to criminally investigate or prosecute any alcohol or drug abuse patient.[facility] HospitalIn the event this information is protected by the Federal Confidentiality of Alcohol and Drug Abuse Patient Records regulations: The Federal rules restrict any use of the information to criminally investigate or prosecute any alcohol or drug abuse patient.[facility] HospitalIn the event this information is protected by the Federal Confidentiality of Alcohol and Drug Abuse Patient Records regulations: The Federal rules restrict any use of the information to criminally investigate or prosecute any alcohol or drug abuse patient.[facility] HospitalIn the event this information is protected by the Federal Confidentiality of Alcohol and Drug Abuse Patient Records regulations: The Federal rules restrict any use of the information to criminally investigate or prosecute any alcohol or drug abuse patient.[facility] HospitalIn the event this information is protected by the Federal Confidentiality of Alcohol and Drug Abuse Patient Records regulations: The Federal rules restrict any use of the information to criminally investigate or prosecute any alcohol or drug abuse patient.[facility] HospitalIn the event this information is protected by the Federal Confidentiality of Alcohol and Drug Abuse Patient Records regulations: The Federal rules restrict any use of the information to criminally investigate or prosecute any alcohol or drug abuse patient.[facility] HospitalIn the event this information is protected by the Federal Confidentiality of Alcohol and Drug Abuse Patient Records regulations: The Federal rules restrict any use of the information to criminally investigate or prosecute any alcohol or drug abuse patient.[facility] HospitalIn the event this information is protected by the Federal Confidentiality of Alcohol and Drug Abuse Patient Records regulations: The Federal rules restrict any use of the information to criminally investigate or prosecute any alcohol or drug abuse patient.[facility] HospitalIn the event this information is protected by the Federal Confidentiality of Alcohol and Drug Abuse Patient Records regulations: The Federal rules restrict any use of the information to criminally investigate or prosecute any alcohol or drug abuse patient.[facility] HospitalIn the event this information is protected by the Federal Confidentiality of Alcohol and Drug Abuse Patient Records regulations: The Federal rules restrict any use of the information to criminally investigate or prosecute any alcohol or drug abuse patient.[facility] HospitalIn the event this information is protected by the Federal Confidentiality of Alcohol and Drug Abuse Patient Records regulations: The Federal rules restrict any use of the information to criminally investigate or prosecute any alcohol or drug abuse patient.[facility] the event this information is protected by the Federal Confidentiality of Alcohol and Drug Abuse Patient Records regulations: The Federal rules restrict any use of the information to criminally investigate or prosecute any alcohol or drug abuse patient.[facility] HospitalIn the event this information is protected by the Federal Confidentiality of Alcohol and Drug Abuse Patient Records regulations: The Federal rules restrict any use of the information to criminally investigate or prosecute any alcohol or drug abuse patient.[facility] HospitalIn the event this information is protected by the Federal Confidentiality of Alcohol and Drug Abuse Patient Records regulations: The Federal rules restrict any use of the information to criminally investigate or prosecute any alcohol or drug abuse patient.[facility] the event this information is protected by the Federal Confidentiality of Alcohol and Drug Abuse Patient Records regulations: The Federal rules restrict any use of the information to criminally investigate or prosecute any alcohol or drug abuse patient.[facility] HospitalIn the event this information is protected by the Federal Confidentiality of Alcohol and Drug Abuse Patient Records regulations: The Federal rules restrict any use of the information to criminally investigate or prosecute any alcohol or drug abuse patient.[facility] HospitalIn the event this information is protected by the Federal Confidentiality of Alcohol and Drug Abuse Patient Records regulations: The Federal rules restrict any use of the information to criminally investigate or prosecute any alcohol or drug abuse patient.[facility] HospitalIn the event this information is protected by the Federal Confidentiality of Alcohol and Drug Abuse Patient Records regulations: The Federal rules restrict any use of the information to criminally investigate or prosecute any alcohol or drug abuse patient.[facility] HospitalIn the event this information is protected by the Federal Confidentiality of Alcohol and Drug Abuse Patient Records regulations: The Federal rules restrict any use of the information to criminally investigate or prosecute any alcohol or drug abuse patient.[facility] HospitalIn the event this information is protected by the Federal Confidentiality of Alcohol and Drug Abuse Patient Records regulations: The Federal rules restrict any use of the information to criminally investigate or prosecute any alcohol or drug abuse patient.[facility] HospitalIn the event this information is protected by the Federal Confidentiality of Alcohol and Drug Abuse Patient Records regulations: The Federal rules restrict any use of the information to criminally investigate or prosecute any alcohol or drug abuse patient.[facility] HospitalIn the event this information is protected by the Federal Confidentiality of Alcohol and Drug Abuse Patient Records regulations: The Federal rules restrict any use of the information to criminally investigate or prosecute any alcohol or drug abuse patient.[facility] HospitalIn the event this information is protected by the Federal Confidentiality of Alcohol and Drug Abuse Patient Records regulations: The Federal rules restrict any use of the information to criminally investigate or prosecute any alcohol or drug abuse patient.[facility] HospitalIn the event this information is protected by the Federal Confidentiality of Alcohol and Drug Abuse Patient Records regulations: The Federal rules restrict any use of the information to criminally investigate or prosecute any alcohol or drug abuse patient.[facility] HospitalIn the event this information is protected by the Federal Confidentiality of Alcohol and Drug Abuse Patient Records regulations: The Federal rules restrict any use of the information to criminally investigate or prosecute any alcohol or drug abuse patient.[facility] HospitalIn the event this information is protected by the Federal Confidentiality of Alcohol and Drug Abuse Patient Records regulations: The Federal rules restrict any use of the information to criminally investigate or prosecute any alcohol or drug abuse patient.[facility] HospitalIn the event this information is protected by the Federal Confidentiality of Alcohol and Drug Abuse Patient Records regulations: The Federal rules restrict any use of the information to criminally investigate or prosecute any alcohol or drug abuse patient.[facility] HospitalIn the event this information is protected by the Federal Confidentiality of Alcohol and Drug Abuse Patient Records regulations: The Federal rules restrict any use of the information to criminally investigate or prosecute any alcohol or drug abuse patient.[facility] HospitalIn the event this information is protected by the Federal Confidentiality of Alcohol and Drug Abuse Patient Records regulations: The Federal rules restrict any use of the information to criminally investigate or prosecute any alcohol or drug abuse patient.[facility] HospitalIn the event this information is protected by the Federal Confidentiality of Alcohol and Drug Abuse Patient Records regulations: The Federal rules restrict any use of the information to criminally investigate or prosecute any alcohol or drug abuse patient.[facility] HospitalIn the event this information is protected by the Federal Confidentiality of Alcohol and Drug Abuse Patient Records regulations: The Federal rules restrict any use of the information to criminally investigate or prosecute any alcohol or drug abuse patient.[facility] HospitalIn the event this information is protected by the Federal Confidentiality of Alcohol and Drug Abuse Patient Records regulations: The Federal rules restrict any use of the information to criminally investigate or prosecute any alcohol or drug abuse patient.[facility] HospitalIn the event this information is protected by the Federal Confidentiality of Alcohol and Drug Abuse Patient Records regulations: The Federal rules restrict any use of the information to criminally investigate or prosecute any alcohol or drug abuse patient.[facility] HospitalIn the event this information is protected by the Federal Confidentiality of Alcohol and Drug Abuse Patient Records regulations: The Federal rules restrict any use of the information to criminally investigate or prosecute any alcohol or drug abuse patient.[facility] HospitalIn the event this information is protected by the Federal Confidentiality of Alcohol and Drug Abuse Patient Records regulations: The Federal rules restrict any use of the information to criminally investigate or prosecute any alcohol or drug abuse patient.[facility] HospitalIn the event this information is protected by the Federal Confidentiality of Alcohol and Drug Abuse Patient Records regulations: The Federal rules restrict any use of the information to criminally investigate or prosecute any alcohol or drug abuse patient.[facility] HospitalIn the event this information is protected by the Federal Confidentiality of Alcohol and Drug Abuse Patient Records regulations: The Federal rules restrict any use of the information to criminally investigate or prosecute any alcohol or drug abuse patient.[facility] HospitalIn the event this information is protected by the Federal Confidentiality of Alcohol and Drug Abuse Patient Records regulations: The Federal rules restrict any use of the information to criminally investigate or prosecute any alcohol or drug abuse patient.[facility] HospitalIn the event this information is protected by the Federal Confidentiality of Alcohol and Drug Abuse Patient Records regulations: The Federal rules restrict any use of the information to criminally investigate or prosecute any alcohol or drug abuse patient.[facility] HospitalIn the event this information is protected by the Federal Confidentiality of Alcohol and Drug Abuse Patient Records regulations: The Federal rules restrict any use of the information to criminally investigate or prosecute any alcohol or drug abuse patient.[facility] HospitalIn the event this information is protected by the Federal Confidentiality of Alcohol and Drug Abuse Patient Records regulations: The Federal rules restrict any use of the information to criminally investigate or prosecute any alcohol or drug abuse patient.[facility] HospitalIn the event this information is protected by the Federal Confidentiality of Alcohol and Drug Abuse Patient Records regulations: The Federal rules restrict any use of the information to criminally investigate or prosecute any alcohol or drug abuse patient.[facility] HospitalIn the event this information is protected by the Federal Confidentiality of Alcohol and Drug Abuse Patient Records regulations: The Federal rules restrict any use of the information to criminally investigate or prosecute any alcohol or drug abuse patient.[facility] HospitalIn the event this information is protected by the Federal Confidentiality of Alcohol and Drug Abuse Patient Records regulations: The Federal rules restrict any use of the information to criminally investigate or prosecute any alcohol or drug abuse patient.[facility] HospitalIn the event this information is protected by the Federal Confidentiality of Alcohol and Drug Abuse Patient Records regulations: The Federal rules restrict any use of the information to criminally investigate or prosecute any alcohol or drug abuse patient.[facility] HospitalIn the event this information is protected by the Federal Confidentiality of Alcohol and Drug Abuse Patient Records regulations: The Federal rules restrict any use of the information to criminally investigate or prosecute any alcohol or drug abuse patient.[facility] HospitalIn the event this information is protected by the Federal Confidentiality of Alcohol and Drug Abuse Patient Records regulations: The Federal rules restrict any use of the information to criminally investigate or prosecute any alcohol or drug abuse patient.[facility] HospitalIn the event this information is protected by the Federal Confidentiality of Alcohol and Drug Abuse Patient Records regulations: The Federal rules restrict any use of the information to criminally investigate or prosecute any alcohol or drug abuse patient.[facility] HospitalIn the event this information is protected by the Federal Confidentiality of Alcohol and Drug Abuse Patient Records regulations: The Federal rules restrict any use of the information to criminally investigate or prosecute any alcohol or drug abuse patient.[facility] HospitalIn the event this information is protected by the Federal Confidentiality of Alcohol and Drug Abuse Patient Records regulations: The Federal rules restrict any use of the information to criminally investigate or prosecute any alcohol or drug abuse patient.[facility] HospitalIn the event this information is protected by the Federal Confidentiality of Alcohol and Drug Abuse Patient Records regulations: The Federal rules restrict any use of the information to criminally investigate or prosecute any alcohol or drug abuse patient.[facility] HospitalIn the event this information is protected by the Federal Confidentiality of Alcohol and Drug Abuse Patient Records regulations: The Federal rules restrict any use of the information to criminally investigate or prosecute any alcohol or drug abuse patient.[facility] HospitalIn the event this information is protected by the Federal Confidentiality of Alcohol and Drug Abuse Patient Records regulations: The Federal rules restrict any use of the information to criminally investigate or prosecute any alcohol or drug abuse patient.[facility] HospitalIn the event this information is protected by the Federal Confidentiality of Alcohol and Drug Abuse Patient Records regulations: The Federal rules restrict any use of the information to criminally investigate or prosecute any alcohol or drug abuse patient.[facility] HospitalIn the event this information is protected by the Federal Confidentiality of Alcohol and Drug Abuse Patient Records regulations: The Federal rules restrict any use of the information to criminally investigate or prosecute any alcohol or drug abuse patient.[facility] HospitalIn the event this information is protected by the Federal Confidentiality of Alcohol and Drug Abuse Patient Records regulations: The Federal rules restrict any use of the information to criminally investigate or prosecute any alcohol or drug abuse patient.[facility] HospitalIn the event this information is protected by the Federal Confidentiality of Alcohol and Drug Abuse Patient Records regulations: The Federal rules restrict any use of the information to criminally investigate or prosecute any alcohol or drug abuse patient.[facility] HospitalIn the event this information is protected by the Federal Confidentiality of Alcohol and Drug Abuse Patient Records regulations: The Federal rules restrict any use of the information to criminally investigate or prosecute any alcohol or drug abuse patient.[facility] HospitalIn the event this information is protected by the Federal Confidentiality of Alcohol and Drug Abuse Patient Records regulations: The Federal rules restrict any use of the information to criminally investigate or prosecute any alcohol or drug abuse patient.[facility] HospitalIn the event this information is protected by the Federal Confidentiality of Alcohol and Drug Abuse Patient Records regulations: The Federal rules restrict any use of the information to criminally investigate or prosecute any alcohol or drug abuse patient.[facility] HospitalIn the event this information is protected by the Federal Confidentiality of Alcohol and Drug Abuse Patient Records regulations: The Federal rules restrict any use of the information to criminally investigate or prosecute any alcohol or drug abuse patient.[facility] the event this information is protected by the Federal Confidentiality of Alcohol and Drug Abuse Patient Records regulations: The Federal rules restrict any use of the information to criminally investigate or prosecute any alcohol or drug abuse patient.[facility] HospitalIn the event this information is protected by the Federal Confidentiality of Alcohol and Drug Abuse Patient Records regulations: The Federal rules restrict any use of the information to criminally investigate or prosecute any alcohol or drug abuse patient.[facility] HospitalIn the event this information is protected by the Federal Confidentiality of Alcohol and Drug Abuse Patient Records regulations: The Federal rules restrict any use of the information to criminally investigate or prosecute any alcohol or drug abuse patient.[facility] the event this information is protected by the Federal Confidentiality of Alcohol and Drug Abuse Patient Records regulations: The Federal rules restrict any use of the information to criminally investigate or prosecute any alcohol or drug abuse patient.[facility] HospitalIn the event this information is protected by the Federal Confidentiality of Alcohol and Drug Abuse Patient Records regulations: The Federal rules restrict any use of the information to criminally investigate or prosecute any alcohol or drug abuse patient.[facility] HospitalIn the event this information is protected by the Federal Confidentiality of Alcohol and Drug Abuse Patient Records regulations: The Federal rules restrict any use of the information to criminally investigate or prosecute any alcohol or drug abuse patient.[facility] HospitalIn the event this information is protected by the Federal Confidentiality of Alcohol and Drug Abuse Patient Records regulations: The Federal rules restrict any use of the information to criminally investigate or prosecute any alcohol or drug abuse patient.[facility] HospitalIn the event this information is protected by the Federal Confidentiality of Alcohol and Drug Abuse Patient Records regulations: The Federal rules restrict any use of the information to criminally investigate or prosecute any alcohol or drug abuse patient.[facility] HospitalIn the event this information is protected by the Federal Confidentiality of Alcohol and Drug Abuse Patient Records regulations: The Federal rules restrict any use of the information to criminally investigate or prosecute any alcohol or drug abuse patient.[facility] HospitalIn the event this information is protected by the Federal Confidentiality of Alcohol and Drug Abuse Patient Records regulations: The Federal rules restrict any use of the information to criminally investigate or prosecute any alcohol or drug abuse patient.[facility] HospitalIn the event this information is protected by the Federal Confidentiality of Alcohol and Drug Abuse Patient Records regulations: The Federal rules restrict any use of the information to criminally investigate or prosecute any alcohol or drug abuse patient.[facility] HospitalIn the event this information is protected by the Federal Confidentiality of Alcohol and Drug Abuse Patient Records regulations: The Federal rules restrict any use of the information to criminally investigate or prosecute any alcohol or drug abuse patient.[facility] HospitalIn the event this information is protected by the Federal Confidentiality of Alcohol and Drug Abuse Patient Records regulations: The Federal rules restrict any use of the information to criminally investigate or prosecute any alcohol or drug abuse patient.[facility] HospitalIn the event this information is protected by the Federal Confidentiality of Alcohol and Drug Abuse Patient Records regulations: The Federal rules restrict any use of the information to criminally investigate or prosecute any alcohol or drug abuse patient.[facility] HospitalIn the event this information is protected by the Federal Confidentiality of Alcohol and Drug Abuse Patient Records regulations: The Federal rules restrict any use of the information to criminally investigate or prosecute any alcohol or drug abuse patient.[facility] HospitalIn the event this information is protected by the Federal Confidentiality of Alcohol and Drug Abuse Patient Records regulations: The Federal rules restrict any use of the information to criminally investigate or prosecute any alcohol or drug abuse patient.[facility] HospitalIn the event this information is protected by the Federal Confidentiality of Alcohol and Drug Abuse Patient Records regulations: The Federal rules restrict any use of the information to criminally investigate or prosecute any alcohol or drug abuse patient.[facility] HospitalIn the event this information is protected by the Federal Confidentiality of Alcohol and Drug Abuse Patient Records regulations: The Federal rules restrict any use of the information to criminally investigate or prosecute any alcohol or drug abuse patient.[facility] HospitalIn the event this information is protected by the Federal Confidentiality of Alcohol and Drug Abuse Patient Records regulations: The Federal rules restrict any use of the information to criminally investigate or prosecute any alcohol or drug abuse patient.[facility] HospitalIn the event this information is protected by the Federal Confidentiality of Alcohol and Drug Abuse Patient Records regulations: The Federal rules restrict any use of the information to criminally investigate or prosecute any alcohol or drug abuse patient.[facility] HospitalIn the event this information is protected by the Federal Confidentiality of Alcohol and Drug Abuse Patient Records regulations: The Federal rules restrict any use of the information to criminally investigate or prosecute any alcohol or drug abuse patient.[facility] HospitalIn the event this information is protected by the Federal Confidentiality of Alcohol and Drug Abuse Patient Records regulations: The Federal rules restrict any use of the information to criminally investigate or prosecute any alcohol or drug abuse patient.[facility] HospitalIn the event this information is protected by the Federal Confidentiality of Alcohol and Drug Abuse Patient Records regulations: The Federal rules restrict any use of the information to criminally investigate or prosecute any alcohol or drug abuse patient.[facility] HospitalIn the event this information is protected by the Federal Confidentiality of Alcohol and Drug Abuse Patient Records regulations: The Federal rules restrict any use of the information to criminally investigate or prosecute any alcohol or drug abuse patient.[facility] HospitalIn the event this information is protected by the Federal Confidentiality of Alcohol and Drug Abuse Patient Records regulations: The Federal rules restrict any use of the information to criminally investigate or prosecute any alcohol or drug abuse patient.[facility] HospitalIn the event this information is protected by the Federal Confidentiality of Alcohol and Drug Abuse Patient Records regulations: The Federal rules restrict any use of the information to criminally investigate or prosecute any alcohol or drug abuse patient.[facility] HospitalIn the event this information is protected by the Federal Confidentiality of Alcohol and Drug Abuse Patient Records regulations: The Federal rules restrict any use of the information to criminally investigate or prosecute any alcohol or drug abuse patient.[facility] HospitalIn the event this information is protected by the Federal Confidentiality of Alcohol and Drug Abuse Patient Records regulations: The Federal rules restrict any use of the information to criminally investigate or prosecute any alcohol or drug abuse patient.[facility] HospitalIn the event this information is protected by the Federal Confidentiality of Alcohol and Drug Abuse Patient Records regulations: The Federal rules restrict any use of the information to criminally investigate or prosecute any alcohol or drug abuse patient.[facility] HospitalIn the event this information is protected by the Federal Confidentiality of Alcohol and Drug Abuse Patient Records regulations: The Federal rules restrict any use of the information to criminally investigate or prosecute any alcohol or drug abuse patient.[facility] HospitalIn the event this information is protected by the Federal Confidentiality of Alcohol and Drug Abuse Patient Records regulations: The Federal rules restrict any use of the information to criminally investigate or prosecute any alcohol or drug abuse patient.[facility] HospitalIn the event this information is protected by the Federal Confidentiality of Alcohol and Drug Abuse Patient Records regulations: The Federal rules restrict any use of the information to criminally investigate or prosecute any alcohol or drug abuse patient.[facility] Reason for Visit (unrecogniz ed section [...] New Specialty Diagnoses / Procedures Referred By Contac t Referred To Contact Podiatry Diagnoses Toenail deformity Procedures CONSULT TO PODIATRY OFFICE/OUTPATIENT NEW HIGH MDM 60-74 MINUTES Enriqueta Otto APRN.FILM EDITOR [address] [place] [address] Referral ID Status Reason Start Date Expiration Date Visits Requested Visits Authorized [id number] Pending Review PCP Requested Referral 03/26/2023 03/25/2024 [...] Reason Onset Date Comments [facility] Reason Comments Results Reason Comments [...] had hip replacement Reason Comments referral [facility] Reason Comments Opened In Error Reason Comments [...] fall on 12/17/2024 Reason Comments Electronic Communication [facility] Reason Comments Blood Pressure Dizziness Reason Comments Medicare Wellness Exam Reason Comments Medication Request Care Teams (unrecognized sec tion and content) Electrical Test Engineer Relationship Specialty Start Date End Date Adeel Hayes MD [address] [facility] [place] [address] PCP - General 09/16/03 Electrical Test Engineer Relationship Specialty Start Date End Date Adeel Hayes MD [address] [place] [address], [place] [address] PCP - General 09/16/03 Electrical Test Engineer Relationship Specialty Start Date End Date Adeel Hayes MD [address] [place] [address], [place] [address] PCP - General 09/16/03 Electrical Test Engineer Relationship Specialty Start Date End Date Adeel Hayes MD [address] [place] [address] [place] [address] PCP - General 09/16/03 Electrical Test Engineer Relationship Specialty Start Date End Date Adeel Hayes MD [address] [place] [address], [place] [address] PCP - General 09/16/03 Electrical Test Engineer Relationship Specialty Start Date End Date Adeel Hayes MD [address] [place] [address] [place] [address] PCP - General 09/16/03 Electrical Test Engineer Relationship Specialty Start Date End Date Adeel Hayes MD [address] [place] [address], [place] [address] PCP - General 09/16/03 Electrical Test Engineer Relationship Specialty Start Date End Date Adeel Hayes MD [address] [place] [address], [place] [address] PCP - General 09/16/03 Electrical Test Engineer Relationship Specialty Start Date End Date Adeel Hayes MD [address] [place] [address], [place] [address] PCP - General 09/16/03 Electrical Test Engineer Relationship Specialty Start Date End Date Adeel Hayes MD [address] [place] [address], [place] [address] PCP - General 09/16/03 Electrical Test Engineer Relationship Specialty Start Date End Date Adeel aHyes MD [address] [place] [address], [place] [address] PCP - General 09/16/03 Electrical Test Engineer Relationship Specialty Start Date End Date Adeel Hayes MD [address] [place] [address] [place] [address] PCP - General 09/16/03 Electrical Test Engineer Relationship Specialty Start Date End Date Adeel Hayes MD [address] [place] [address] [place] [address] PCP - General 09/16/03 Electrical Test Engineer Relationship Specialty Start Date End Date Adeel Hayes MD [address] [place] [address] [place] [address] PCP - General 09/16/03 Electrical Test Engineer Relationship Specialty Start Date End Date Adeel Hayes MD [address] [place] [address] [place] [address] PCP - General 09/16/03 Electrical Test Engineer Relationship Specialty Start Date End Date Adeel Hayes MD [address] [place] [address] [place] [address] PCP - General 09/16/03 Team Status: Active Member Role Status Dates Dr. Adeel Hayes MD Family Provider Active Dr. Adeel Hayes MD Primary Care Provider Active Team Status: Active Member Role Status Dates Dr. Adeel Hayes MD Primary Care Provider Active Jeremy OWEN PAXTON Referring Provider, Other Provid er Active Dr. Bar Henderson DO Attending Provider Active Team Status: Inactive Member Role Status Dates Dr. Adeel Hayes MD Primary Care Provider Active Jeremy OWEN PA-C Attending Provider, Referring Pr ovider Active Electrical Test Engineer Relationship Specialty Start Date End Date Adeel Hayes MD [address] [facility] [place] [address] PCP - General 09/16/03 Electrical Test Engineer Relationship Specialty Start Date End Date Adeel Hayes MD [address] [place] [address] PCP - General 09/16/03 Electrical Test Engineer Relationship Specialty Start Date End Date Adeel Hayes MD [address] [place] [address] PCP - General 09/16/03 Electrical Test Engineer Relationship Specialty Start Date End Date Adeel Hayes MD [address] [place] [address] PCP - General 09/16/03 Electrical Test Engineer Relationship Specialty Start Date End Date Adeel Hayes MD [address] [facility] [place] PCP - General 09/16/03 Electrical Test Engineer Relationship Specialty Start Date End Date Adeel Hayes MD [address] [place] [address] PCP - General 09/16/03 Electrical Test Engineer Relationship Specialty Start Date End Date Adeel Hayes MD [address] [place] [address] PCP - General 09/16/03 Electrical Test Engineer Relationship Specialty Start Date End Date Adeel Hayes MD [address] [place] [address] PCP - General 09/16/03 Electrical Test Engineer Relationship Specialty Start Date End Date Adeel Hayes MD [address] [place] [address] PCP - General 09/16/03 Electrical Test Engineer Relationship Specialty Start Date End Date Adeel Hayes MD [address] [place] [address] PCP - General 09/16/03 Electrical Test Engineer Relationship Specialty Start Date End Date Adeel Hayes MD [address] [place] [address] PCP - General 09/16/03 Electrical Test Engineer Relationship Specialty Start Date End Date Adeel Hayes MD [address] [place] [address] PCP - General 09/16/03 Electrical Test Engineer Relationship Specialty Start Date End Date Adeel Hayes MD [address] [place] [address] PCP - General 09/16/03 Electrical Test Engineer Relationship Specialty Start Date End Date Adeel Hayes MD [address] [place] [address] PCP - General 09/16/03 Electrical Test Engineer Relationship Specialty Start Date End Date Adeel Hayes MD [address] [place] [address] PCP - General 09/16/03 Electrical Test Engineer Relationship Specialty Start Date End Date Adeel Hayes MD [address] [place] [address] PCP - General 09/16/03 Electrical Test Engineer Relationship Specialty Start Date End Date Adeel Hayes MD [address] [place] [address] PCP - General 09/16/03 Electrical Test Engineer Relationship Specialty Start Date End Date Adeel Hayes MD [address] [place] [address] PCP - General 09/16/03 Electrical Test Engineer Relationship Specialty Start Date End Date Adeel Hayes MD [address] [place] [address] PCP - General 09/16/03 Electrical Test Engineer Relationship Specialty Start Date End Date Adeel Hayes MD [address] [place] [address] PCP - General 09/16/03 Electrical Test Engineer Relationship Specialty Start Date End Date Adeel Hayes MD [address] [place] [address] PCP - General 09/16/03 Electrical Test Engineer Relationship Specialty Start Date End Date Adeel Hayes MD [address] [place] [address] PCP - General 09/16/03 Electrical Test Engineer Relationship Specialty Start Date End Date Adeel Hayes MD [address] [place] [address] PCP - General 09/16/03 Electrical Test Engineer Relationship Specialty Start Date End Date Adeel Hayes MD [address] [place] [address] PCP - General 09/16/03 Electrical Test Engineer Relationship Specialty Start Date End Date Adeel Hayes MD [address] [place] [address] PCP - General 09/16/03 Enriqueta Otto, ENGRAVER OPTICAL FRAMES.FILM EDITOR [address] [place] [address] Pumper Gager Apprentice Internal Medicine 09/15/24 Destini Lee ENGRAVER OPTICAL FRAMES.BUTTON MAKER AND INSTALLER [address] [place] [address] Pumper Gager Apprentice Internal Medicine 09/15/24 Electrical Test Engineer Relationship Specialty Start Date End Date Adeel Hayes MD [address] [place] [address] PCP - General 09/16/03 Enriqueta Otto, ENGRAVER OPTICAL [employer]AMES.FILM EDITOR [address] [place] [address] Pumper Gager Apprentice Internal Medicine 09/15/24 Destini Lee ENGRAVER OPTICAL FRAMES.BUTTON MAKER AND INSTALLER [address] [place] [address] Pumper Gager Apprentice Internal Medicine 09/15/24 Electrical Test Engineer Relationship Specialty Start Date End Date Adeel Hayes MD [address] [place] [address] PCP - General 09/16/03 Enriqueta Otto, ENGRAVER OPTICAL [employer]AMES.FILM EDITOR [address] [facility] [place] [address] Pumper Gager Apprentice Internal Medicine 09/15/24 Destini Lee APRN.BUTTON MAKER AND INSTALLER [address] [place] [address] Pumper Gager Apprentice Internal Medicine 09/15/24 Electrical Test Engineer Relationship Specialty Start Date End Date Adeel Hayes MD [address] [facility] [place] [address] PCP - General 09/16/03 Enriqueta Otto, ENGRAVER OPTICAL FRAMES.FILM EDITOR [address] [facility] [place] [address] Pumper Gager Apprentice Internal Medicine 09/15/24 Destini Lee ENGRAVER OPTICAL FRAMES.BUTTON MAKER AND INSTALLER [address] [place] [address] Pumper Gager Apprentice Internal Medicine 09/15/24 Electrical Test Engineer Relationship Specialty Start Date End Date Adeel Hayes MD [address] [facility] [place] [address] PCP - General 09/16/03 Enriqueta Otto, ENGRAVER OPTICAL FRAMES.FILM EDITOR [address] [facility] [place] [address] Pumper Gager Apprentice Internal Medicine 09/15/24 Destini Lee APRN.BUTTON MAKER AND INSTALLER [address] [place] [address] Pumper Gager Apprentice Internal Medicine 09/15/24 Electrical Test Engineer Relationship Specialty Start Date End Date Adeel Hayes MD [address] [place] [address] PCP - General 09/16/03 Enriqueta Otto, ENGRAVER OPTICAL FRAMES.FILM EDITOR [address] [place] [address] Pumper Gager Apprentice Internal Medicine 09/15/24 Destini Lee ENGRAVER OPTICAL FRAMES.BUTTON MAKER AND INSTALLER [address] [place] [address] Pumper Gager Apprentice Internal Medicine 09/15/24 Electrical Test Engineer Relationship Specialty Start Date End Date Adeel Hayes MD [address] [place] [address] PCP - General 09/16/03 Enriqueta Otto, ENGRAVER OPTICAL FRAMES.FILM EDITOR [address] [place] [address] Pumper Gager Apprentice Internal Medicine 09/15/24 Destini Lee ENGRAVER OPTICAL FRAMES.BUTTON MAKER AND INSTALLER [address] [place] [address] Pumper Gager Apprentice Internal Medicine 09/15/24 Electrical Test Engineer Relationship Specialty Start Date End Date Adeel Hayes MD [address] [place] [address] PCP - General 09/16/03 Enriqueta Otto, ENGRAVER OPTICAL FRAMES.FILM EDITOR [address] [place] [address] Pumper Gager Apprentice Internal Medicine 09/15/24 Destini Lee ENGRAVER OPTICAL FRAMES.BUTTON MAKER AND INSTALLER [address] [place] [address] Pumper Gager Apprentice Internal Medicine 09/15/24 Electrical Test Engineer Relationship Specialty Start Date End Date Adeel Hayes MD [address] [place] [address] PCP - General 09/16/03 Enriqueta Otto, ENGRAVER [employer]ICAL FRAMES.FILM EDITOR [address] [place] [address] Pumper Gager Apprentice Internal Medicine 09/15/24 Destini Lee ENGRAVER OPTICAL FRAMES.BUTTON MAKER AND INSTALLER [address] [place] [address] [facility] Internal Medicine 09/15/24 Electrical Test Engineer Relationship Specialty Start Date End Date Adeel Hayes MD [address] [place] [address] PCP - General 09/16/03 Enriqueta Otto, ENGRAVER OPTICAL FRAMES.FILM EDITOR [address] [place] [address] Pumper Gager Apprentice Internal Medicine 09/15/24 Destini Lee ENGRAVER OPTICAL FRAMES.BUTTON MAKER AND INSTALLER [address] [place] [address] [facility] Internal Medicine 12/30/24 Electrical Test Engineer Relationship Specialty Start Date End Date Adeel Hayes MD [address] [place] [address] PCP - General 09/16/03 Enriqueta Otto, ENGRAVER OPTICAL FRAMES.FILM EDITOR [address] [place] [address] Pumper Gager Apprentice Internal Medicine 09/15/24 Destini Lee ENGRAVER OPTICAL FRAMES.BUTTON MAKER AND INSTALLER [address] [place] [address] Pumper Gager Apprentice Internal Medicine 12/30/24 Electrical Test Engineer Relationship Specialty Start Date End Date Adeel Hayes MD [address] [place] [address] PCP - General 09/16/03 Destini Lee APRN.BUTTON MAKER AND INSTALLER [address] [facility] [place] [address] Pumper Gager Apprentice Internal Medicine 12/30/24 Enriqueta Otto APRN.FILM EDITOR [address] [place] [address] Pumper Gager Apprentice Internal Medicine 02/25/25 Electrical Test Engineer Relationship Specialty Start Date End Date Adeel Hayes MD [address] [facility] [place] [address] PCP - General 09/16/03 Destini Lee APRN.BUTTON MAKER AND INSTALLER [address] [facility] [place] [address] Pumper Gager Apprentice Internal Medicine 12/30/24 Enriqueta Otto, ENGRAVER OPTICAL FRAMES.FILM EDITOR [address] [facility] [place] [address] Pumper Gager Apprentice Internal Medicine 02/25/25 Electrical Test Engineer Relationship Specialty Start Date End Date Adeel Hayes MD [address] [place] [address] PCP - General 09/16/03 Destini Lee APRN.BUTTON MAKER AND INSTALLER [address] [facility] [place] [address] Pumper Gager Apprentice Internal Medicine 12/30/24 Enriqueta Otto, ENGRAVER OPTICAL FRAMES.FILM EDITOR [address] [place] [address] [facility] Internal Medicine 02/25/25 Electrical Test Engineer Relationship Specialty Start Date End Date Adeel Hayes MD [address] [place] [address] PCP - General 09/16/03 Destini Lee, ENGRAVER OPTICAL FRAMES.BUTTON MAKER AND INSTALLER [address] [place] [address] Pumper Gager Apprentice Internal Medicine 12/30/24 Enriqueta Otto, ENGRAVER OPTICAL FRAMES.FILM EDITOR [address] [place] [address] [facility] Internal Medicine 02/25/25 Electrical Test Engineer Relationship Specialty Start Date End Date Adeel Hayes MD [address] [place] [address] PCP - General 09/16/03 Destini Lee, ENGRAVER OPTICAL FRAMES.BUTTON MAKER AND INSTALLER [address] [place] [address] Pumper Gager Apprentice Internal Medicine 12/30/24 Enriqueta Otto, ENGRAVER OPTICAL FRAMES.FILM EDITOR [address] [place] [address] [facility] Internal Medicine 02/25/25 Team Status: Active Member Role/Relationship Status Dates Dr. Adeel Hayes MD Family Provider Active Dr. Adeel Hayes MD Primary Care Provider Active Team Status: Inactive Member Role/Relationship Status Dates Dr. Adeel Hayes MD Primary Care Provider Active Start: April 09, 2025 End: April 09, 2025 Adeel LAUGHLIN MD Attending Provider Active Start: April 09, 2025 End: April 09, 2025 Electrical Test Engineer Relationship Specialty Start Date End Date Adeel Hayes MD [address] [place] [address] PCP - General 09/16/03 Destini Lee ENGRAVER OPTICAL FRAMES.BUTTON MAKER AND INSTALLER [address] [place] [address] Pumper Gager Apprentice Internal Medicine 12/30/24 Enriqueta Otto, ENGRAVER OPTICAL FRAMES.FILM EDITOR [address] [place] [address] Pumper Gager Apprentice Internal Medicine 02/25/25 Electrical Test Engineer Relationship Specialty Start Date End Date Adeel Hayes MD [address] [place] [address] PCP - General 09/16/03 Destini Lee, ENGRAVER OPTICAL FRAMES.BUTTON MAKER AND INSTALLER [address] [place] [address] Pumper Gager Apprentice Internal Medicine 12/30/24 Enriqueta Otto, ENGRAVER OPTICAL FRAMES.FILM EDITOR [address] [place] [address] Pumper Gager Apprentice Internal Medicine 02/25/25 Goals (unrecognized section and content) Goals may be documented in a n alternate sectionGoals may be documented in an alternate sectionGoals may be documented in an alternate section INFORMATION SOURCE (unrecogn ized section and content) DATE CREATED AUTHOR 07/22/2025 [facility] DATE CREATED AUTHOR VADIM PARRISH 08/06/2025 [facility] FOR RECORDS PERTAINING TO PATIENTS WHO ARE [...] BE BASED ON THE PRIMARY CLINICAL RECORDS. [facility] [employer] [facility]. provides no warranty or guarantee of the accuracy or completeness of information in this document.
[2025-09-23 07:28] LABS: Hematocrit 36.6 % (37-47); Hemoglobin 11.9 g/dL (12.0-15.0); Immature Granulocytes Count 0.040 X10^3/uL (0.0-0.0); Mean Corp Hgb Conc 32.5 g/dL (32-36); Mean Corpuscular Volume 93.1 fL (81-99); Mean Platelet Vol. 10.2 fl (6.2-12.0); NRBC Flagged by Analyzer 0 % (0-5); POSITIVE MORPHOLOGY YES; Platelet Count 210 K/mm3 (150-450); RBC Distribution Width CV 12.5 % (11.6-14.6); RBC Distribution Width SD 43.1 fl (35.1-43.9); Red Blood Count 3.93 M/mm3 (4.2-5.4); White Blood Count 7.0 K/mm3 (4.4-11.0)
[2025-09-23 07:42] LABS: Differential Indicated SCAN CRITERIA MET
[2025-09-23 08:10] LABS: AST(SGOT) 29 U/L (<=31); Alanine Aminotransfer ALT/SGPT 15 U/L (<=34); Albumin, Serum 3.8 g/dL (3.4-4.8); Alkaline Phosphatase 61 U/L (35-104); Anion Gap 11 (5-15); BUN 25 mg/dL (4-19); BUN/Creat Ratio 27.6 RATIO (10-20); Calcium,Total 9.4 mg/dL (7.6-11.0); Carbon Dioxide 24.2 mmol/L (21.0-32.0); Chloride 104 mmol/L (98-108); Cholesterol 119 mg/dL (<=200); Globulin 2.9 g/dL (2.2-4.2); Glucose 96 mg/dL (70-99); Low Density Lipoprotein Calc. 68 mg/dL; Potassium 3.7 mmol/L (3.3-5.1); Triglycerides 68 mg/dL; Very Low Density Lipoprotein 14 mg/dL (5-40); Vitamin D,25 Hydroxy 32.9 ng/mL (30-100); cholesterol:hdl ratio screen 3.26
[2025-09-23 08:21] LABS: Reactive Lymphocyte RARE
== END ==
LOC: OLS.WHLTCC 05:00
PROVIDERS: PCP Internal Medicine; Visit Provider Internal Medicine
DX: S06.9X0D Unspecified intracranial injury without loss of consciousness, subsequent encounter (principal); M48.061 Spinal stenosis, lumbar region without neurogenic claudication; S16.1XXD Strain of muscle, fascia and tendon at neck level, subsequent encounter; I10 Essential (primary) hypertension
CPT/HCPCS: 36415; 80053; 80061; 82306; 85025

== ENCOUNTER → 2025-09-29 04:00 | Outpatient (REF) | payer MEDICARE, SELFPAY ==
--- OUTSIDE RECORDS SUMMARY | 2025-09-29 03:57 | XMS RPT_ITS | CCD ---
Author Organization [facility] CliniSyde Care Team Providers Care Market Relationship Manager Name Role Phone Adeel Hayes MD Primary Care Provider Dr. Adeel Hayes Primary Care Provider PA[place] Referring Provider [phone] [place] Other Provider Dr. Bar Henderson Attending Provider Adeel Hayes MD Primary Care Provider Adeel Hayes MD Primary Care Provider Otto PACKING CLERK.CHHA, Enriqueta Unavailable Alejandra PACKING CLERK.SOCIAL SCIENCES RESEARCH SCIENTIST, Destini Unavailable Alejandra PACKING CLERK.SOCIAL SCIENCES RESEARCH SCIENTIST, Destini Unavailable Alejandra PACKING CLERK.SOCIAL SCIENCES RESEARCH SCIENTIST, Destini Unavailable Otto PACKING CLERK.CHHA, Enriqueta Unavailable Dr. Adeel Hayes MD Primary Care Provider [phone] Adeel Hayes MD Attending Provider Unavailab VICTORIA [...] (3 sources) Lisinopril Drug Allergy 06-02-20 05 [facility] HMG-CoA Reductase Inhibitors (statins) (1 source) Simvastatin Drug Allergy 05-08-20 Other: See Comments [facility] Nitroimidazoles (antibiotic) (3 sources) metroNIDAZOLE Drug Allergy 06-02-20 05 [facility] Penicillins (antibiotic) (6 sources) Amoxicillin Drug Allergy 06-02-20 05 [facility] (20 sources) Amoxicillin; Translations: [AMOXICILLIN] Drug Allergy 06-02-20 05 [facility] Work Phone: [phone] (20 sources) Lisinopril; Translations: [LISINOPRIL] Drug Allergy 06-02-20 05 [facility] Work Phone: (20 sources) metroNIDAZOLE; Translations: [METRONIDAZOLE HCL] Drug Allergy 06-02-20 [facility] Work Phone: (10 sources) Penicillins; Translations: [PENICILLINS] Propensity to adverse reactions 06-02-20 05 [facility] Work Phone: (8 sources) Salicylic Acid; Translations: [SALICYLATES] Drug Allergy 06-02-20 05 [facility] Work Phone: (20 sources) Penicillins Propensity to adverse reactions 06-02-20 05 [facility] Work Phone: (20 sources) Salicylate product Propensity to adverse reactions 06-02-20 05 [facility] Work Phone: (3 sources) Ampicillin Drug Allergy 05-26-20 21 [facility] (3 sources) Penicillins Allergy to substance 05-26-20 [facility] (20 sources) Simvastatin; Translations: [SIMVASTATIN] Drug Allergy 05-08-20 19 Other: See Comments [facility] (10 sources) Penicillins Propensity to adverse reactions 06-02-20 05 Rash [facility] (1 source) Ampicillin Drug Allergy 02-14-20 [facility] (1 source) Lisinopril Drug Allergy 02-14-20 [facility] (1 source) Penicillins Drug allergy (disorder) 02-14-20 [facility] (1 source) Simvastatin Drug Allergy 02-14-20 [facility] Medications Current Medications Medication Drug [...] Start: 09-14-2009 take 1 capsule by mo [facility] once cholecalciferol(VITAMIN D 2,000 UNIT CAP [...] on above: Take 1 capsule by mo [facility] daily at bedtime. doxycycline [...] 2 mg by mouth as needed. Active Gzstgpmq-Ftp-Ixlw-Fa-Miri tein (2 sources) Start: 05-29-2018 Ybhaqjfl-Mkw-Oacf-F a-Lutein Active 1 EACH PO DAILY May 29, 2018 12:00am Start: 05-29-2018 Ccslxfac-Fsb-Z abv-Th-Vwcdlm Active 1 EACH PO DAILY May 28, 2018 11:00pm Vxdsttjb-Mmv-Pwkf-Fa-Vit K-Lut 1 EACH tablet (1 source) Start: 05-29-2018 take 1 tablet by mouth once daily Svjbvohp-Xvd-Cuup-Fa-Vit K-Lut 1 EACH tablet Active 1 NMA [...] Comment on above: Take 1 capsule by [facility] once daily. Phenylephrine (9 sources) alpha-1 Adrenergic Agonist phenylephrine HCl (PREPARATION H, PE, RECTAL) by RECTAL route. Active polyethylene glycol 3350 95442 mg powder for oral solution (20 sources) Osmotic Laxative Start: 12-01-2020 polyethylene glycol 3350 (MIRALAX) 17 gram/dose powder Take 17 g by mouth once daily. 1 Bottle 3 12/01/2020 Active Comment on above: Take 17 g by mouth o nce daily. polyethylene glycol 3350 999020 mg / potassium chloride 2970 mg / sodium bicarbonate 6740 mg / sodium chloride 5860 mg / sodium sulfate 59761 mg powder for oral solution (1 source) [...] Discontinued (Discontinued by Patient) Vit A,C And T-Kcdfee-Vlhajvoj (2 sources) Start: 05-17-2018 take 2 tablets by mouth once daily Vit A,C And X-Ieahvp-Lgvjqyxh Active 2 TABLET PO DAILY May 17, 2018 12:00am Start: 05-17-2018 take 2 tablets by [facility] once daily Vit A,C And L-Aimkvl-Eeqksaoe Active 2 TABLET PO DAILY May 16, 2018 11:00pm Vit A,C And C-Egbxhg-Gcoeymkh 1 EACH tablet (1 source) Start: 05-17-2018 take 1 tablet by mouth once daily Vit A,C And H-Twknlt-Isqjezvq 1 EACH tablet Active 2 {tbl} PO [...] Comment on above: Take 1,000 mcg by [facility] once daily. vitamin e 180 mg oral [...] Vitamin C Start: 01-17-2012 End: 02-15-2023 vit A,C,L-Adhf-Pvuczc 7,160-113-100 kdij-mo-cmzh ORAL Tab Take by mouth. As directed. [...] on above: Take 1 capsule by mo [facility] three times daily as needed for cough. Bran (20 sources) Start: 6 End: 3 OAT BRAN 500 MG TAB 2 tabs in am 0 10/18/2005 02/15/2023 Discontinued Start: 10-18-2005 OAT BRAN 500 M G TAB 2 tabs in am 0 10/18/2005 Active Comment on above: 2 tabs in am ZMJPMHM-TLUXTODIM-B INC ORAL (20 sources) End: 04-15-2025 take 1 tablet by mouth once daily SXYZBGK-DHLESXJVG-WEDV ORAL Take 1 tablet by mouth once daily. 04/15/2025 Discontinued (Other) take 1 tablet by mouth once marsha y IRQTQXO-KYXFVGNLH-UYEP ORAL Take 1 tablet by mouth once daily. Active take 1 tablet by mouth once marsha y LUUAQJM-AVUAOTEGW-PBEU ORAL Take 1 tablet by mouth once [...] 01/09/2022 Discontinued take 3 tablets by mo [facility] once daily as needed [...] 1 application three times daily as needed. Becker-3 Fatty Acids-Fish Oil (2 sources) Start: 07-05-2018 End: 11-25-2020 Becker-3 Fatty Acids-Fish Oil Discontinued 1 EACH PO DAILY July 05, 2018 12:00am November 25, 2020 10:27am Start: 07-05-2018 End: 11-25-2020 Becker-3 Fatty Acids-Fish Oil Discontinued 1 EACH PO DAILY July 04, 2018 11:00pm November 25, 2020 9:27am Becker-3 Fatty Acids-Fish Oil 1 EACH capsule (1 source) Start: 07-05-2018 End: 11-25-2020 Becker-3 Fatty Acids-Fish Oil 1 EACH capsule Discontinued [...] Comment on above: Take 1 capsule by [facility] once daily. vitamin E mixed/tocotrienol (VITAMIN E [...] coronary artery; Translations: [Atherosclerotic heart disease of citizen [place] coronary artery without angina pectoris] 05-26-2021 Chronic [...] Test Name Value Interpretation Reference Range Facility [facility] DODIE LI ([id number]) 1945 F Date Time Provider Department 06/23/25 ADEEL HAYES INTWS During your visit today, we recorded the following information about you: Meredith Varela RN 06/23/2025 4:26 PM Signed Patient saw Malu Townsend [facility] on 06/09/25. Pt was having episodic lightheadedness; [...] for the 07/07 appt. Pt resides at [facility]. Pt states she will have nurse there [...] stating she has to pay $55 for [facility] to bring her and she cannot afford that. Ariana Hernandez LPN 07/06/2025 4:02 PM Signed Nurse from [facility] is faxing list of patient blood pressure readings to the office to be reviewed. Carla Almonte RN 07/07/2025 12:14 PM Signed Patient calls back to see the status of this request. Patients that this morning blood pressure was 122/56. Patient reports that she did not take atenolol last night. MARGOT Mckeon Beth, LPN 07/20/2025 3:59 PM Signed Patient calling said the nurse at [facility] has never gotten anything back from Dr [...] 05/08/2019 14 - Other: See Comments Comments: "Flu like sx", body aches AMOXICILLIN 06/02/2005 2 - Rash ASA (SALICYLATES) 06/02/2005 Comments: if not coated FLAGYL (METRONIDAZOLE HCL) 06/02/2005 LISINOPRIL 06/02/2005 PENICILLINS 06/02/2005 2 - Rash Date Reviewed: 06/09/2025 Reviewed by: Malu Townsend APRN.SOCIAL SCIENCES RESEARCH SCIENTIST - Fully Assessed Reason for Visit: Patient [...] once da (more content not included)... [facility] DODIE LI ([id number]) 1945 F Date Time Provider Department 06/16/25 [...] 05/08/2019 14 - Other: See Comments Comments: "Flu like sx", body aches AMOXICILLIN 06/02/2005 2 - Rash ASA (SALICYLATES) 06/02/2005 Comments: if not coated FLAGYL (METRONIDAZOLE HCL) 06/02/2005 LISINOPRIL 06/02/2005 PENICILLINS 06/02/2005 2 - Rash Date Reviewed: 06/09/2025 Reviewed by: Malu Townsend, PACKING CLERK.SOCIAL SCIENCES RESEARCH SCIENTIST - Fully Assessed Reason for Visit: Medication [...] [E66.9] Anxiety state [F41.1] 05/11/2006 OSTEOARTHROS NOS-L/LEG [[id number]] 09/24/2008 Impaired Fasting Glucose [R73.01] 03/22/2010 Xerosis [...] is g (more content not included)... [facility] DODIE LI ([id number]) 1945 F Date Time Provider Department 06/12/25 [...] 05/08/2019 14 - Other: See Comments Comments: "Flu like sx", body aches AMOXICILLIN 06/02/2005 2 - Rash ASA (SALICYLATES) 06/02/2005 Comments: if not coated FLAGYL (METRONIDAZOLE HCL) 06/02/2005 LISINOPRIL 06/02/2005 PENICILLINS 06/02/2005 2 - Rash Date Reviewed: 06/09/2025 Reviewed by: Malu Townsend APRN.SOCIAL SCIENCES RESEARCH SCIENTIST - Fully Assessed Reason for Visit: Results [...] [E66.9] Anxiety state [F41.1] 05/11/2006 OSTEOARTHROS NOS-L/LEG [[id number]] 09/24/2008 Impaired Fasting Glucose [R73.01] 03/22/2010 Xerosis cutis [L85.3] 01/10/2013 Cracked skin [R23.4] 01/10/2013 Neurofibroma of back [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 2 mg/dL [facility] Chloride [Moles/Vol] 104 mmol/L 98 - 10 7 mmol/L [facility] CO2 [Moles/Vol] 23 mmol/L 22 - 30 mmol/L [facility] Creatinine [Mass/Vol] 0.83 mg/dL 0.58 - 0.96 mg/dL [facility] GFR/1.73 sq M.predicted among non-blacks MDRD (S/P/Bld) [Vol rate/Area] 72 mL/min/{1.73_m2} - PINF [facility] Comment on above: Estimated Glomerular Filtration [...] [Mass/Vol] 96 mg/dL 74 - 99 mg/dL [facility] Comment on above: The [place] Diabete s Association (ADA) provides guidance for [...] Standards of Medical Care in Diabetes 2016, [place] Diabetes Association. Diabetes Care. 2016.39(Suppl 1). Interpretation and review of laboratory results Abnormal [facility] Potassium [Moles/Vol] 4.3 mmol/L 3.7 - 5.1 mmol/L [facility] Sodium [Moles/Vol] 139 mmol/L 136 - 144 mmol/L [facility] Urea nitrogen [Mass/Vol] 25 mg/dL High 7 - 21 mg/dL [facility] Anion gap [Moles/Vol] 12 mmol/L Normal 8-15 [facility] Comment on above: Order Comment: Marcus appiah Type: BLOOD SPECIMENOrdering Facility: [facility] Address: [address] [place] [address] Performed By: #### 2 4321-2, 2276-4, 04077-2 ####[facility] LABCLIA [id number] [place] [address] [place] Calcium [Mass/Vol] 9.2 mg/dL Normal 8.5-10.2 [facility] Comment on above: Order Comment: Marcus appiah Type: BLOOD SPECIMENOrdering Facility: [facility] Address: [address] [place] [address] Performed By: #### 2 4321-2, 2276-4, 88222-1 ####[facility] LABCLIA [id number] [address] [address] [place] Chloride [Moles/Vol] 104 mmol/L Normal 98-107 [facility] Comment on above: Order Comment: Speci men Type: BLOOD SPECIMENOrdering Facility: [facility] Address: [address] [place], [place] [address] Performed By: #### 2 4321-2, 2276-4, 07641-4 ####[facility] LABIA [id number] [place] [id number] [place] CO2 [Moles/Vol] 23 mmol/L Normal 22-30 [facility] Comment on above: Order Comment: Speci men Type: BLOOD SPECIMENOrdering Facility: [facility] Address: [address] [place], [place] [address] Performed By: #### 2 4321-2, 6-4, 76701-5 ####[facility] LABIA [id number] [place] [id number] [place] Creatinine [Mass/Vol] 0.83 mg/dL Normal 0.58-0.96 [facility] Comment on above: Order Comment: Speci men Type: BLOOD SPECIMENOrdering Facility: [facility] Address: [address] [place], [place] [address] Performed By: #### 2 4321-2, 2276-4, 49260-8 ####[facility] [id number] [address] [address] [place] eGFRcr SerPlBld CKD-EPI 2020 72 mL/min/1.73m??? Normal >=60 [facility] Comment on above: Order Comment: Speci men Type: BLOOD SPECIMENOrdering Facility: [facility] Address: [address] [place], [place] [address] Result Comment: Melany mated Glomerular Filtration Rate [...] actual GFR. Performed By: #### 2 4321-2, 2276-4, 83931-1 ####[facility] LABCLIA [id number] [address] [address] [place] Glucose [Mass/Vol] 96 mg/dL Normal 74-99 [facility] Comment on above: Order Comment: Marcus appiah Type: BLOOD SPECIMENOrdering Facility: [facility] Address: [address] [place] [address] Result Comment: The [place] Diabetes Association (ADA) provides guidance for cutoff [...] Standards of Medical Care in Diabetes 2016, [place] Diabetes Association. Diabetes Care. 2016.39(Suppl 1). Performed By: #### 2 4321-2, 6-4, 10964-2 ####[facility] LABIA [id number] [address] [address] [place] Potassium [Moles/Vol] 4.3 mmol/L Normal 3.7-5.1 [facility] Comment on above: Order Comment: Marcus appiah Type: BLOOD SPECIMENOrdering Facility: [facility] Address: [address] [place] [address] Performed By: #### 2 4321-2, 2276-4, 64754-7 ####[facility] LABCLIA [id number] [place] [id number] [place] Sodium [Moles/Vol] 139 mmol/L Normal 136-144 [facility] Comment on above: Order Comment: Speci men Type: BLOOD SPECIMENOrdering Facility: [facility] Address: [address] [place] [address] Performed By: #### 2 4321-2, 2276-4, 35273-6 ####[facility] LABCLIA [id number] [place] [id number] [place] Urea nitrogen [Mass/Vol] 25 mg/dL High 7-21 [facility] Comment on above: Order Comment: Speci men Type: BLOOD SPECIMENOrdering Facility: [facility] Address: [address] [place] [address] Performed By: #### 2 4321-2, 2276-4, 27124-7 ####[facility] LABCLIA [id number] [place] [id number] [place] CBC panel Auto (Bld)on 06-09 Erythrocyte distribution width (RBC) [Ratio] 12.8 % 11.5 - 15.0 % [facility] Hematocrit (Bld) [Volume fraction] 39.0 % 36.0 - 46.0 % [facility] Hemoglobin (Bld) [Mass/Vol] 12.8 g/dL 11.5 - 15.5 g/dL [facility] Interpretation and review of laboratory results Normal [facility] MCH (RBC) [Entitic mass] 30.8 pg 26.0 - 34.0 pg [facility] MCHC (RBC) [Mass/Vol] 32.8 g/dL 30.5 - 36.0 g/dL [facility] MCV (RBC) [Entitic vol] 94.0 fL 80.0 - 100.0 fL [facility] Nucleated RBC (Bld) [#/Vol] NINF [facility] Platelet mean volume (Bld) [Entitic vol] 10.8 fL 9.0 - 12.7 fL [facility] Platelets (Bld) [#/Vol] 265 10*3/uL [facility] RBC (Bld) [#/Vol] 4.15 10*6/uL 3.90 - 5.2 0 m/uL [facility] WBC (Bld) [#/Vol] 8.08 10*3/uL [facility] Erythrocyte distribution width (RBC) [Ratio] 12.8 % Normal 11.5-15.0 [facility] Comment on above: Order Comment: Speci men Type: BLOOD SPECIMENOrdering Facility: [facility] Address: [address] [place] [address] Performed By: #### 5 8410-2 ####[facility] LABCLIA [id number] [place] [address] [place] Hematocrit (Bld) [Volume fraction] 39.0 % Normal 36.0-46.0 [facility] Comment on above: Order Comment: Speci men Type: BLOOD SPECIMENOrdering Facility: [facility] Address: [address] [place] [address] Performed By: #### 5 8410-2 ####[facility] LABIA [id number] [place] [address] [place] Hemoglobin (Bld) [Mass/Vol] 12.8 g/dL Normal 11.5-15.5 [facility] Comment on above: Order Comment: Speci men Type: BLOOD SPECIMENOrdering Facility: [facility] Address: [address] [place] [address] Performed By: #### 5 8410-2 ####[facility] LABCLIA [id number] [place] [address] [place] MCH (RBC) [Entitic mass] 30.8 pg Normal 26.0-34.0 [facility] Comment on above: Order Comment: Speci men Type: BLOOD SPECIMENOrdering Facility: [facility] Address: [address] [place] [address] Performed By: #### 5 8410-2 ####[facility] LABCLIA [id number] [place] [address] [place] MCHC (RBC) [Mass/Vol] 32.8 g/dL Normal 30.5-36.0 [facility] Comment on above: Order Comment: Speci men Type: BLOOD SPECIMENOrdering Facility: [facility] Address: [address] [place] [address] Performed By: #### 5 8410-2 ####[facility] LABCLIA [id number] [place] [address] [place] MCV (RBC) [Entitic vol] 94.0 fL Normal 80.0-100.0 [facility] Comment on above: Order Comment: Speci men Type: BLOOD SPECIMENOrdering Facility: [facility] Address: [address] [place] [address] Performed By: #### 5 8410-2 ####[facility] LABCLIA [id number] [place] [address] [place] Nucleated RBC (Bld) [#/Vol] 10*3/uL Normal <0.01 [facility] Comment on above: Order Comment: Speci men Type: BLOOD SPECIMENOrdering Facility: [facility] Address: [address] [place] [address] Performed By: #### 5 8410-2 ####[facility] LABCLIA [id number] [place] [address] [place] Platelet mean volume (Bld) [Entitic vol] 10.8 fL Normal 9.0-12.7 [facility] Comment on above: Order Comment: Speci men Type: BLOOD SPECIMENOrdering Facility: [facility] Address: [address] [place] [address] Performed By: #### 5 8410-2 ####[facility] LABCLIA [id number] [place] [address] [place] Platelets (Bld) [#/Vol] 265 10*3/uL Normal 150-400 [facility] Comment on above: Order Comment: Speci men Type: BLOOD SPECIMENOrdering Facility: [facility] Address: [address] [place] [address] Performed By: #### 5 8410-2 ####[facility] LABCLIA [id number] [place] [id number] [place] RBC (Bld) [#/Vol] 4.15 10*6/uL Normal 3.90-5.20 [facility] Comment on above: Order Comment: Speci men Type: BLOOD SPECIMENOrdering Facility: [facility] Address: [address] [place] [address] Performed By: #### 5 8410-2 ####[facility] LABIA [id number] [place] [address] [place] WBC (Bld) [#/Vol] 8.08 10*3/uL Normal 3.70-11.00 [facility] Comment on above: Order Comment: Speci men Type: BLOOD SPECIMENOrdering Facility: [facility] Address: [address] [place] [address] Performed By: #### 5 8410-2 ####[facility] LABIA [id number] [place] [id number] [place] CNOVon 06-09-2025 CNOV Office Visit (INTMWS ) DODIE LI ([id number]) 1945 F Date Time Provider Department 06/09/25 1:00 PM MALU TOWNSEND INTMWS During your visit today, we recorded the following information about you: Pulse Respiration Blood pressure Weight 74/minute 16/minute 95/55 83.2 kg Height 1.492 m Malu Townsend APRN.CNP 06/09/2025 2:08 PM Signed Dodie Li is [...] MD as PCP - General Destini Lee APRN.SOCIAL SCIENCES RESEARCH SCIENTIST as Skip Loader (Internal Medicine) Enriqueta Otto APRN.CHHA as Skip Loader (Internal Medicine) Dr. Lal (Retinal specialist), Dr. Denny Briseno (business reporter) Medical/Family history review Reviewed and updated problem [...] 74 Resp 16 Ht 149.2 cm (4' 10.75") Wt 83.2 kg (183 lb 6.8 oz) [...] her forgetfulness to stress regarding power of environmental attorney changes and to aging. She denies [...] 74 Resp 16 Ht 149.2 cm (4' 10.75") Wt 83.2 kg (183 lb 6.8 oz) [...] visit, subseque (more content not included)... Normal [facility] FERRITINon 06-09-2025 Ferritin [Mass/Vol] 94.1 ng/mL 14.7 - 2 05.1 ng/mL [facility] FOLATE, SERUMon 06-09-2025 Folate [Mass/Vol] 12.3 ng/mL 4.7 - PINF ng/mL [facility] Ferritin SerPl-mCncon 2024 Ferritin [Mass/Vol] 94.1 ng/mL Normal 14.7-205.1 [facility] Comment on above: Order Comment: Speci men Type: BLOOD SPECIMENOrdering Facility: [facility] Address: [address] [place] [address] Performed By: #### 2 4321-2, 2276-4, 59735-3 ####[facility] LABCLIA [id number] [place] [address] [place] Ferritin [Mass/Vol]on 2024 Interpretation and review of laboratory results Normal [facility] Folate SerPl-mCncon 06-09-20 Folate [Mass/Vol] 12.3 ng/mL Normal >4.7 [facility] Comment on above: Order Comment: Speci men Type: BLOOD SPECIMENOrdering Facility: [facility] Address: [address] [place] [address] Performed By: #### 2 284-8, 2132-9 ####[facility] LABCLIA [id number] [address] [place] Iron and Iron binding capaci ty panelon 06-09-2025 Interpretation and review of laboratory results Normal [facility] Iron [Mass/Vol] 78 ug/dL 41 - 186 ug/dL [facility] Iron binding capacity [Mass/Vol] 348 ug/dL 232 - 386 ug/dL [facility] Iron/TIBC [Molar ratio] 22.4 % 15.0 - 57.0 % [facility] Iron [Mass/Vol] 78 ug/dL Normal 41-186 [facility] Comment on above: Order Comment: Speci men Type: BLOOD SPECIMENOrdering Facility: [facility] Address: [address] [place] [address] Performed By: #### 2 4321-2, 2276-4, 75621-3 ####[facility] LABCLIA [id number] [address] [address] [place] Iron binding capacity [Mass/Vol] 348 ug/dL Normal 232-386 [facility] Comment on above: Order Comment: Speci men Type: BLOOD SPECIMENOrdering Facility: [facility] Address: [address] [place] [address] Performed By: #### 2 4321-2, 2276-4, 91760-6 ####[facility] LABIA [id number] [address] [address] [place] Iron/TIBC [Molar ratio] 22.4 % Normal 15.0-57.0 [facility] Comment on above: Order Comment: Speci men Type: BLOOD SPECIMENOrdering Facility: [facility] Address: [address] [place] [address] Performed By: #### 2 4321-2, 2276-4, 55049-5 ####[facility] LABIA [id number] [place] [id number] [place] No Panel Informationon 06-09 [facility] Interpretation and review of laboratory results Normal [facility] VITAMIN B12on 06-09-2025 Cobalamin (Vitamin B12) [Mass/Vol] 1081 pg/mL 232 - 1245 pg/mL [facility] Vit B12 SerPl-mCncon 025 Cobalamin (Vitamin B12) [Mass/Vol] 1081 pg/mL Normal 232-1245 [facility] Comment on above: Order Comment: Speci men Type: BLOOD SPECIMENOrdering Facility: [facility] Address: [address] [place], [place] [address] Performed By: #### 2 284-8, 2132-9 ####[facility] LABIA [id number] [address] [address] [place] CNPDede 04-23-2025 CNPN Telephone (INTMWS) DODIE LI ([id number]) 1945 F Date Time Provider Department 04/23/25 [...] 05/08/2019 14 - Other: See Comments Comments: "Flu like sx", body aches AMOXICILLIN 06/02/2005 2 - Rash ASA (SALICYLATES) 06/02/2005 Comments: if not coated FLAGYL (METRONIDAZOLE HCL) 06/02/2005 LISINOPRIL 06/02/2005 PENICILLINS 06/02/2005 2 - Rash Date Reviewed: 04/15/2025 Reviewed by: Destini Lee APRN.SOCIAL SCIENCES RESEARCH SCIENTIST - Fully Assessed Reason for Visit: Patient [...] Date 0 (more content not included)... Normal [facility] CNOVon 04-15-2025 CNOV Office Visit (INTMWS ) DODIE LI ([id number]) 1945 F Date Time Provider Department 04/15/25 [...] is a 79-year-old female, residing in a detention, presenting with concerns about low blood pressure readings, dizziness, and visual disturbances. Dodie reports experiencing visual disturbances described as "floaters" and a "fine mist" that appear intermittently and then resolve. 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 She also reports concerns about low blood pressure readings, with recent measurements at her detention being 115/59 mmHg and 102/70 mmHg. She is currently taking atenolol 50 mg in the morning. She notes that her symptoms of dizziness and feeling "loopy" begin in the mid-afternoon and improve by the evening. She also reports difficulty focusing her eyes and increased fatigue, stating, "I could fall asleep right now, I'll tell you the truth." She attributes these symptoms to her medication regimen and expresses concern about the timing of her medication administration. Dodie has a history of falls, having fallen three times since residing in the detention. She also has a history of a hip replacement and expresses concern about the potential consequences of another fall. She was previously taking sertraline for adjustment issues related to living in a detention but has since discontinued it. She reports feeling less focused and having difficulty expressing herself since stopping the medication. Dodie also mentions that her chlorthalidone was discontinued by Dr. Hayes in July due to complaints of dizziness and nocturia. She expresses concern about the potential for falls due to frequent nighttime urination and slippery floors in the detention. Her medications were reviewed today and her [...] ALLERGIES Allergen Reactions Simvastatin Other: See Comments "Flu like sx", body aches Amoxicillin Rash Asa [Salicylates] if not coated Flagyl [Metronidazo* Lisinopril Penicillins Rash ACTIVE PROBLEM LIST Dizziness - 10/23/2021 Status Post Right Hip Replacement - 10/23/2021 Hypertriglyceridemia - 10/23/2021 Pain in Right Hip - 03/06/2019 Xerosis Cuti (more content not included)... [facility]INTM[facility] DODIE LI ([id number]) 1945 F Date Time Provider Department 04/14/25 ADEEL HAYES INTMWS During your visit today, we recorded the following information about you: Carla Almonte RN 04/14/2025 4:06 PM Signed Patient calls and states that she feels groggy a couple hours after taking medication at 9 am. Patient is wondering if blood pressure medications could be causing this. [facility] staff give patient her morning blood medications. [...] Destini today at 3:40. MARGOT Mckeon Rosa, PACKING CLERK.[facility] 04/15/2025 11:20 AM Signed noted Allergies As of Date: 04/14/2025 Noted Allergy Reaction SIMVASTATIN 05/08/2019 14 - Other: See Comments Comments: "Flu like sx", body aches AMOXICILLIN 06/02/2005 2 - Rash [...] 1,000 mcg by mouth once daily. - EMBQTHV-PWOKVQRJA-ENLY ORAL Take 1 tablet by mouth once [...] tablet daily (more content not included)... [facility] Tele[facility] (INTMWS) DODIE LI ([id number]) 1945 F Date Time Provider Department 04/07/25 [...] telephone encounter from 03/30/2025 where Vale from [facility] was asking about discontinuing medication and had [...] 05/08/2019 14 - Other: See Comments Comments: "Flu like sx", body aches AMOXICILLIN 06/02/2005 2 - Rash [...] 1,000 mcg by mouth once daily. - HSJILXT-MYSCKOUXR-TDYN ORAL Take 1 tablet by mouth once [...] degeneration (evelin (more content not included)... Normal [facility] 03-30-2025 [facility] Telephone (INTRaykuWS) DODIE LI ([id number]) 1945 F Date Time Provider Department 03/30/25 ADEEL HAYES INTMWS During your visit today, we recorded the following information about you: Carla Almonte RN 03/30/2025 12:15 PM Signed Vale from [facility] [employer] calls and states that they had received fax order to decrease sertraline. Family is asking for medication to be discontinued completely. Vale is faxing orders again to have medication discontinued. Please review and advise, Carla Almonte RN Allergies As of Date: 03/30/2025 Noted Allergy Reaction SIMVASTATIN 05/08/2019 14 - Other: See Comments Comments: "Flu like sx", body aches AMOXICILLIN 06/02/2005 2 - Rash [...] 1,000 mcg by mouth once daily. 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] 03/22/2010 Xerosis cutis [L85.3] 01/10/2013 Cracked skin [R23.4] 01/10/2013 Neurofibroma of back [D36.17] 01/10/2013 Intradermal nevus [D23.9] 01/10/2013 Acrochordon [L91.8] 01/10/2013 Pain in right hip [M25.551] 03/06/2019 Dizziness [R42] 10/23/2021 Status post right hip replacement [Z96.641] 10/23/2021 Hypertriglyceridemia [E78.1] 10/23/2021 Encounter Status:Closed by LEILA VERDUZCO on 04/02/25 Normal [facility] CNOVon 02-10-2025 CNOV Office Visit (PODIWS ) DODIE LI ([id number]) 1945 F Date Time Provider Department 02/10/25 [...] Victoria Ashley DPM Referring Provider: VICTORIA ASHLEY [[id number]] Allergies As of Date: 02/10/2025 Noted Allergy Reaction SIMVASTATIN 05/08/2019 14 - Other: See Comments Comments: "Flu like sx", body aches AMOXICILLIN 06/02/2005 2 - Rash [...] 1,000 mcg by mouth once daily. - EIJCYJW-QXLJAWQJY-MZBW ORAL Take 1 tablet by mouth once daily. - guaifenesin/dextrometh orphan (MUCINEX DM ORAL) Take 1 tablet by mouth (more content not included)... [facility] Telephone (INTMWS) DODIE LI ([id number]) 1945 F Date Time Provider Department 01/26/25 ADEEL HAYES INTWS During your visit today, we recorded the following information about you: Vickie Mckeon MA 01/26/2025 8:52 AM Addendum Office received faxed from [facility] regarding patient on 01/23/25. Neuro checks completed and to follow for review. Please review fax and complete. Once complete fax back to [facility] at [phone]. Office received fax regarding patient on 01/20/25 with update regarding fall. Please review fax and note. Once complete fax back to [facility] at [phone] Routed to PCP. MARISOL Briceno Liza D, MD 01/26/2025 6:43 PM Signed Reviewed and signed Gisele Sheehan LPN 01/27/2025 12:20 PM Signed Completed and faxed back 01/27/25 Allergies As of Date: 01/26/2025 Noted Allergy Reaction SIMVASTATIN 05/08/2019 14 - Other: See Comments Comments: "Flu like sx", body aches AMOXICILLIN 06/02/2005 2 - Rash ASA (SALICYLATES) 06/02/2005 Comments: if not coated FLAGYL (METRONIDAZOLE HCL) 06/02/2005 LISINOPRIL 06/02/2005 PENICILLINS 06/02/2005 2 - Rash Date Reviewed: 09/09/2024 Reviewed by: Sabina Briseno LPN - Fully Assessed Reason for Visit: Electronic Communication [890] Cmt: [facility] Prescriptions as of 01/27/2025 - atenolol [...] 1,000 mcg by mouth once daily. 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.641] 10/23/2021 Hypertriglyceridemia [E78.1] 10/23/2021 Encounter Status:Closed by GISELE SHE[facility]AN [facility] Tele[facility] (INTMWS) DODIE LI ([id number]) 1945 F Date Time Provider Department 12/23/24 ADEEL HAYES INTMWS During your visit today, we recorded the following information about you: Ariana Hernandez LPN 12/23/2024 4:10 PM Signed Angie from [employer] calling to report patient had fall on [...] 05/08/2019 14 - Other: See Comments Comments: "Flu like sx", body aches AMOXICILLIN 06/02/2005 2 - Rash [...] 1,000 mcg by mouth once daily. 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 MANJEET Lopes Terri, APRN.CHHA 11/25/2024 4:47 PM Addendum OK for all [facility]. Ameena Truong LPN 11/26/2024 9:41 AM Signed Below response left on secure identified vm. Ameena Truong LPN Allergies As of Date: 11/25/2024 Noted Allergy Reaction SIMVASTATIN 05/08/2019 14 - Other: See Comments Comments: "Flu like sx", body aches AMOXICILLIN 06/02/2005 2 - Rash [...] 1,000 mcg by mouth once daily. 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] 03/22/2010 Xerosis cutis [L85.3] 01/10/2013 Cracked skin [R23.4] 01/10/2013 Neurofibroma of back [D36.17] 01/10/2013 Intradermal nevus [D23.9] 01/10/2013 Acrochordon [L91.8] 01/10/2013 Pain in right hip [M25.551] 03/06/2019 Dizziness [R42] 10/23/2021 Status post right hip replacement [Z96.641] 10/23/2021 Hypertriglyceridemia [E78.1] 10/23/2021 Encounter Status:Closed by AMEENA TRUONG on 11/26/24 [facility] 11-18-2024 CNPN Telephone (FAMPWS) DODIE LI ([id number]) 1945 F Date Time Provider Department 11/18/24 [facility] During your visit today, we recorded the following information about you: Winifred Calixto LPN 11/18/2024 4:41 PM Signed Pt calls requesting a copy of DNR be mailed to her. Per Niki Anne RN it is ok to send. DNR mailed as requested. Winifred Calixto LPN Allergies As of Date: 11/18/2024 Noted Allergy Reaction SIMVASTATIN 05/08/2019 14 - Other: See Comments Comments: "Flu like sx", body aches AMOXICILLIN 06/02/2005 2 - Rash [...] 1,000 mcg by mouth once daily. 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] 03/22/2010 Xerosis cutis [L85.3] 01/10/2013 Cracked skin [R23.4] 01/10/2013 Neurofibroma of back [D36.17] 01/10/2013 Intradermal nevus [D23.9] 01/10/2013 Acrochordon [L91.8] 01/10/2013 Pain in right hip [M25.551] 03/06/2019 Dizziness [R42] 10/23/2021 Status post right hip replacement [Z96.641] 10/23/2021 Hypertriglyceridemia [E78.1] 10/23/2021 Encounter Status:Closed by WINIFRED CALIXTO on 11/18/24 [facility] ([id number][facility] 1945 F Date Time Provider Department 11/13/24 ADEEL HAYES INTMWS During your visit today, we recorded the following information about you: Karin Osorio LPN 11/13/2024 10:24 AM Signed Mami with [facility] calling to see if you will follow pt for PT and OT 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 Pt went home from [facility] on 11-06-24. Please advise Mami with verbal [...] 05/08/2019 14 - Other: See Comments Comments: "Flu like sx", body aches AMOXICILLIN 06/02/2005 2 - Rash ASA (SALICYLATES) 06/02/2005 Comments: if not coated FLAGYL (METRONIDAZOLE HCL) 06/02/2005 LISINOPRIL 06/02/2005 PENICILLINS 06/02/2005 2 - Rash Date Reviewed: 09/09/2024 Reviewed by: Sabina Briseno LPN - Fully Assessed Reason for Visit: [facility]- verbal orders needed [Other] Prescriptions as of [...] 1,000 mcg by mouth once daily. 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] 03/22/2010 Xerosis cutis [L85.3] 01/10/2013 Cracked skin [R23.4] 01/10/2013 Neurofibroma of back [D36.17] 01/10/2013 Intradermal nevus [D23.9] 01/10/2013 Acrochordon [L91.8] 01/10/2013 Pain in right hip [M25.551] 03/06/2019 Dizziness [R42] 10/23/2021 Status post right hip replacement [Z96.641] 10/23/2021 Hypertriglyceridemia [E78.1] 10/23/2021 Encounter Status:Closed by GISELE SHEEHAN on 11/14/24 [facility] 10-29-2024 CNPN Telephone (INTMWS) DODIE LI ([id number]) 1945 F Date Time Provider Department 10/29/24 ADEEL HAYES INTWS During your visit today, we recorded the following information about you: Meredith Varela RN 10/29/2024 3:51 PM Signed Patient reports she is at [facility], Assisted Living, and would like an order for Physical Therapy there, to help strengthen her legs. She reports she uses a walker. Asking if PCP would place order. Pended. Please call patient with reply, and call [facility], assisted living nurse, with PT order update as well. [phone]. MARGOT Veloz Liza D, MD 10/29/2024 6:53 [...] [facility] order but should work as well SoniaJamesie 10/31/2024 10:11 AM Signed Spoke with patient and advised that both PT for leg strength and hand can be faxed to [facility]. Patient advised that [facility] staff told her that they do not [...] 11:37 AM Signed Order for PT at [facility] was faxed to [facility]. 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 - PIURUMV-DBGDHFMWM-PMID ORAL Take 1 tablet by mouth once [...] Resolved Fibrom (more content not included)... Normal [facility] CNPNon 09-25-2024 CNPN Telephone (INTMWS) DODIE LI ([id number]) 1945 F Date Time Provider Department 09/25/24 ADEEL HAYES INTMWS During your visit today, we recorded the following information about you: Daniela Gordon, MARGOT 09/25/2024 3:33 PM Signed Patient calls to ask if provider would send a small supply of xanax to [facility]. Patient reports in the past she has taken it rarely on an as needed basis and feels it would help her anxiety if she could have a small amount on hand at the facility. Patient reports if provider is agreeable to send to the nursing department at [facility]. Daniela Gordon, Rey Berman RN 10/03/2024 11:46 [...] may keep the RX on hand at [facility] to keep on hand to use as needed for occasional episode of anxiety. Gisele Sheehan LPN 10/04/2024 8:05 AM Signed Spoke with nurse at [place]. Order for medication needs to be sent to [facility]. Copy of this encounter has been faxed to [place] at [phone] Adeel Hayes MD 10/05/2024 3:07 PM Signed [...] 05/08/2019 14 - Other: See Comments Comments: "Flu like sx", body aches AMOXICILLIN 06/02/2005 2 - Rash ASA (SALICYLATES) 06/02/2005 Comments: if not coated FLAGYL (METRONIDAZOLE HCL) 06/02/2005 LISINOPRIL 06/02/2005 PENICILLINS 06/02/2005 2 - Rash Date Reviewed: 09/09/2024 Reviewed by: Sabina Briseno LPN - Fully Assessed Reason for Visit: Patient Question [7807] Primary Visit Diagnosis:Anxiety state [F41.1] Order(s):ALPRAZolam (XANAX) [...] 1,000 mcg by mouth once daily. 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 Normal [facility] 09-16-2024 [facility] Telephone (INTMWS) DODIE LI ([id number]) 1945 F Date Time Provider Department 09/16/24 ADEEL HAYES INTMWS During your visit today, we recorded the following information about you: Leila Verduzco LPN 09/16/2024 1:45 PM Signed Fax rec'd from [facility] asking for rx to be sent to [facility] for sertraline 25mg one tablet daily #90 [...] Called and left a detailed voicemail notifying [facility] nurse [facility] of providers message. Clinic phone number was left for the nurse to call back and answer providers questions. Called Pt and no answer. Pt did not have voicemail set up. Will need to call back. MARGOT Dozier Stephanie, RN 09/22/2024 10:38 AM Signed Colette Whitten LPN from [facility] calls and states that patient has been on medication since being admitted to their facility on 08/04/2024. Medication was listed on patient's history and physical and other paperwork that was faxed over to [facility]. [facility] has not noticed any adverse effects while [...] 09/22/2024 5:11 PM Signed Gricelda nurse from [facility] called and is notified of providers message and instructions. She voices understanding and states they received the fax this morning. Deidra Flores RN Allergies As of Date: 09/16/2024 Noted Allergy Reaction SIMVASTATIN 05/08/2019 14 - Other: See Comments Comments: "Flu like sx", body aches AMOXICILLIN 06/02/2005 2 - Rash [...] 1,000 mcg by mouth once daily. - HMHFWKM-KHHRSVBAQ-XHPV ORAL Take 1 tablet by mouth once [...] 06/02/2005 ESOP (more content not included)... Normal [facility] Telephone (INTMWS) DODIE LI ([id number]) 1945 F Date Time Provider Department 09/16/24 ADEEL HAYES INTReyWS During your visit today, we recorded the following information about you: Deidra Flores RN 09/16/2024 12:06 PM Signed Pt called in asking if Dr Hayes takes [facility]. I told her I didn't know, but I could send a message through to Dr Hayes's office. I also told her she could call her insurance company and they should have a list of providers they cover. Allergies As of Date: 09/16/2024 Noted Allergy Reaction SIMVASTATIN 05/08/2019 14 - Other: See Comments Comments: "Flu like sx", body aches AMOXICILLIN 06/02/2005 2 - Rash [...] 1,000 mcg by mouth once daily. 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.01] 03/22/2010 Xerosis cutis [L85.3] 01/10/2013 Cracked skin [R23.4] 01/10/2013 Neurofibroma of back [D36.17] 01/10/2013 Intradermal nevus [D23.9] 01/10/2013 Acrochordon [L91.8] 01/10/2013 Pain in right hip [M25.551] 03/06/2019 Dizziness [R42] 10/23/2021 Status post right hip replacement [Z96.641] 10/23/2021 Hypertriglyceridemia [E78.1] 10/23/2021 Encounter Status:Closed by DEIDRA FLORES on 09/18/24 Normal [facility] CNOVon 09-09-2024 CNOV Office Visit (PODIWS ) DODIE LI ([id number]) 1945 F Date Time Provider Department 09/09/24 11:15 AM KATIESHEELA MCELROYALEXI BARDALES During your visit today, we recorded the following information about you: Katiesimeon Victoria 09/09/2024 11:38 AM Signed Subjective: Patient presents to clinic c/o painful toenails. They state that the nails are especially painful with shoe gear and pressure. Patient states that nails 1 b/l are painful. No other pedal complaints at this time. Patient states no change in medications or medical history since last visit. Objective: Patient presents to clinic ambulating in eaker Vasc: DP and PT pulses are palpable [...] Victoria Ashley DPM Referring Provider: VICTORIA ASHLEY [[id number]] Allergies As of Date: 09/09/2024 Noted Allergy Reaction SIMVASTATIN 05/08/2019 14 - Other: See Comments Comments: "Flu like sx", body aches AMOXICILLIN 06/02/2005 2 - Rash [...] 1,000 mcg by mouth once daily. - SKVGQSW-VIJHOYCFU-CERW ORAL Take 1 tablet by mouth once [...] [G56.00] Ob (more content not included)... [facility] Tele[facility] (INTMWS) DODIE LI ([id number]) 1945 F Date Time Provider Department 08/11/24 ADEEL HAYES INTMWS During your visit today, we recorded the following information about you: Ariana Hernandez LPN 08/11/2024 10:04 AM Signed 1)Patient calling recently moved to assisted living at [facility]. She is asking if Dr Hayes makes [...] Signed 1) Can follow with patient at [facility] and round there as her PCP. She can still come to the office if she prefers. I think I completed forms for [facility] admission. 2) Okay to change Miralax to as needed. Can give verbal order to [facility] so they can send formal order for me to sign unless they need a printed order. Adeel Hayes MD 08/12/2024 8:25 PM Signed I wrote an order on fax from [facility] earlier today to change Miralax to [...] reviewed. Patient requests that provider come to [facility] to visit and let her know ahead of time so she is available. Patient also asking for orders to be able to manage OTC treatments such as band aids, polysporin, Tums, preparation H, and tylenol specifically as it frustrating to have to wait for 2-3 days on nursing staff to provide. MARGOT Tobar Liza D, MD 08/13/2024 6:59 PM Signed 1) Noted RE; request to be seen at [facility] (instead of coming to office). Will try to notify ahead of time. Verify if there are days of the week that she is usually not available. 2) Wonder if the wait for those things was due to not having all her admission orders right away when was admitted. In any case, can give order to [facility] that she may have band aids, polysporin, TUMS and PrepH in her room to use as needed per package directions. Clarify dose of Tylenol that she has that wants to dose self as needed and with [facility] if okay with order to self dispense [...] will not cover Dr. Hayes. Spoke with [facility] nurse, Corina, and asked about the [...] 05/08/2019 14 - Other: See Comments Comments: "Flu like sx", body aches AMOXICILLIN 06/02/2005 2 - Rash ASA (SALICYLATES) 06/02/2005 Comments: if not coated FLAGYL (METRONIDAZOLE HCL) 06/02/2005 LISINOPRIL 06/02/2005 PENICILLINS 06/02/2005 2 - Rash Date Reviewed: 07/09/2024 Reviewed by: Angeline Tobin LPN - Fully Assessed Reason for Visit: Patient Question [2431] Orders [681] Prescriptions as of 08/15/2024 - [...] cap Take (more content not included)... Normal [place] [facility] JADODIE Rosa Isela ([id number]) 1945 F Date Time Provider Department 07/30/24 ADEEL HAYES During your visit today, we recorded the following information about you: Janet Frias LPN 07/30/2024 4:13 PM Signed Kellie calling from [facility], she is requesting an order for admission to assisted living. Also asking when order is ready, to also fax face sheet, med list, HANDP AND ASHLEY to [phone]. MANJEET Rae Rosa, APRN.SOCIAL SCIENCES RESEARCH SCIENTIST 07/30/2024 4:16 PM Signed Please return call [...] 05/08/2019 14 - Other: See Comments Comments: "Flu like sx", body aches AMOXICILLIN 06/02/2005 2 - Rash [...] 1,000 mcg by mouth once daily. - [id number] ORAL Take 1 tablet by mouth once [...] [E66.9] Anxiety state [F41.1] 05/11/2006 OSTEOARTHROS NOS-L/LEG [CFV1224] 09/24/2008 Impaired Fasting Glucose [R73.01] 03/22/2010 Xerosis cutis [L85.3] 01/10/2013 Cracked skin [R23.4] 01/10/2013 Neurofibroma of back [D36.17] 01/10/2013 Intradermal nevus [D23.9] 01/10/2013 Acrochordon [L91.8] 01/10/2013 Pain in right hip [M25.551] 03/06/2019 Dizziness [R42] 10/23/2021 Status post right hip replacement [Z96.641] 10/23/2021 Hypertriglyceridemia [E78.1] 10/23/2021 Encounter Status:Closed by GISELE SHEEHAN on 08/08/24 [facility] Constanza 07-23-2024 [facility] Tele[facility] ([facility]) DODIE LI ([id number]) 1945 F Date Time Provider Department 07/23/24 [...] down fluids in the evening. Destini Lee APRN.SOCIAL SCIENCES RESEARCH SCIENTIST 07/28/2024 1:57 PM Signed Noted, she is scheduled for an office visit next week, plan to discuss with the visit. Allergies As of Date: 07/23/2024 Noted Allergy Reaction SIMVASTATIN 05/08/2019 14 - Other: See Comments Comments: "Flu like sx", body aches AMOXICILLIN 06/02/2005 2 - Rash [...] 1,000 mcg by mouth once daily. - [id number]-[id number]-ZWRW ORAL Take 1 tablet by mouth once [...] [E66.9] Anxiety state [F41.1] 05/11/2006 OSTEOARTHROS NOS-L/LEG [IRC4465] 09/24/2008 Impaired Fasting Glucose [R73.01] 03/22/2010 Xerosis cutis [L85.3] 01/10/2013 Cracked skin [R23.4] 01/10/2013 Neurofibroma of back [D36.17] 01/10/2013 Intradermal nevus [D23.9] 01/10/2013 Acrochordon [L91.8] 01/10/2013 Pain in right hip [M25.551] 03/06/2019 Dizziness [R42] 10/23/2021 Status post right hip replacement [Z96.641] 10/23/2021 Hypertriglyceridemia [E78.1] 10/23/2021 Encounter Status:Closed by AIRANA HERNANDEZ on 07/31/24 Normal [facility] No Panel Informationon 09-18 Radiology Study observation (narrative) [facility] XR Hand - right PA and Later al and Obliqueon 09-18-2022 IMPRESSION: Distal radial and ulnar fractures. Judge: KATE Transcribe Date/Time: Sep 18 2022 7:33P Dictated by : MONISHA CARVALHO MD This examination was interpreted and the report reviewed and electronically signed by: MONISHA CARVALHO MD on Sep 18 2022 7:35PM [facility] * * *Final Report* [...] evidence of dislocation. DIVISION OF RADIOLOGY Provider, [facility] - 09/18/2022 * * *Final [...] IMPRESSION IMPRESSION: Distal radial and ulnar fractures. Judge: [facility] Transcribe Date/Time: Sep 18 2022 7:33P Dictated by : MONISHA CARVALHO MD This examination was interpreted and the report reviewed and electronically signed by: MONISHA CARVALHO MD on Sep 18 2022 7:35PM [facility] XR Pelvis and Hip - right AP and Lateral frogon 09-18-2022 IMPRESSION: No acute osseous abnormalities are identified. Judge: [facility] Transcribe Date/Time: Sep 18 2022 7:37P Dictated by : MONISHA CARVALHO MD This examination was interpreted and the report reviewed and electronically signed by: MONISHA CARVALHO MD on Sep 18 2022 7:39PM [facility] * * *Final Report* [...] the thoracic spine. DIVISION OF RADIOLOGY Provider, Mavis Gentry [facility] - 09/18/2022 * * *Final [...] IMPRESSION: No acute osseous abnormalities are identified. Judge: KATE Transcribe Date/Time: Sep 18 2022 7:37P Dictated by : MONISHA CARVALHO MD This examination was interpreted and the report reviewed and electronically signed by: MONISHA CARVALHO MD on Sep 18 2022 7:39PM EST [facility] XR Radius and Ulna - right A P and Lateralon 09-18-2022 IMPRESSION: Distal radial and ulnar fractures. Judge: [facility] Transcribe Date/Time: Sep 18 2022 7:35P Dictated [...] spaces appear unremarkable. DIVISION OF RADIOLOGY Provider, [facility] - 09/18/2022 * * *Final Report* [...] IMPRESSION IMPRESSION: Distal radial and ulnar fractures. Judge: [facility] Transcribe Date/Time: Sep 18 2022 7:35P Dictated by : MONISHA CARVALHO MD This examination was interpreted and the report reviewed and electronically signed by: MONISHA CARVALHO MD on Sep 18 2022 7:37PM EST [facility] XR Sacrum and Coccyx 3 Views on 09-18-2022 IMPRESSION: No acute osseous abnormalities are identified. Judge: KATE Transcribe Date/Time: Sep 18 2022 7:40P Dictated by : MONISHA CARVALHO MD This examination was interpreted and the report reviewed and electronically signed by: MONISHA CARVALHO MD on Sep 18 2022 7:42PM EST [facility] OF RADIOLOG[facility] * * *Final [...] involve the aorta. DIVISION OF RADIOLOGY Provider, [facility] - 09/18/2022 * * *Final Report* [...] IMPRESSION: No acute osseous abnormalities are identified. Judge: [place] Transcribe Date/Time: Sep 18 2022 7:40P Dictated by : MONISHA CARVALHO MD This examination was interpreted and the report reviewed and electronically signed by: MONISHA CARVALHO MD on Sep 18 2022 7:42PM EST [facility] XR Shoulder - right 2 Viewso n 09-18-2022 IMPRESSION: No acute osseous abnormalities are identified. Judge: [facility] Transcribe Date/Time: Sep 18 2022 7:31P [...] changes are noted. DIVISION OF RADIOLOGY Provider, [facility] - 09/18/2022 * * *Final Report* [...] IMPRESSION: No acute osseous abnormalities are identified. Judge: [facility] Transcribe Date/Time: Sep 18 2022 7:31P Dictated by : MONISHA CARVALHO MD This examination was interpreted and the report reviewed and electronically signed by: MONISHA CARVALHO MD on Sep 18 2022 7:32PM EST [facility] XR Shoulder - right 2 ViewsO rdered By: [facility] Provider on 09-18-2022 [facility] Basic metabolic 2000 panelon 03-25-2022 Anion gap [Moles/Vol] 13 mmol/L 9 - 18 mmol/L [facility] Calcium [Mass/Vol] 10.1 mg/dL 8.5 - 10. 2 mg/dL [facility] Chloride [Moles/Vol] 101 mmol/L 97 - 10 5 mmol/L [facility] CO2 [Moles/Vol] 26 mmol/L 22 - 30 mmol/L [facility] Creatinine [Mass/Vol] 0.66 mg/dL 0.58 - 0.96 mg/dL [facility] Estimated Glomerular Filtration Rate 92 mL/min/1.73m >=60 mL/min/1.73m [facility] Glucose [Mass/Vol] 95 mg/dL 74 - 99 mg/dL [facility] Potassium [Moles/Vol] 3.5 mmol/L Low 3.7 - 5.1 mmol/L [facility] Sodium [Moles/Vol] 140 mmol/L 136 - 144 mmol/L [facility] Urea nitrogen [Mass/Vol] 17 mg/dL 7 - 21 mg/dL [facility] Vital Signs Date Time Vital Sign Value Performing Clinician Luci [email or web address] 06-09-2025 12:59-0400 Body height 149.2 cm [facility] PACKING CLERK.SOCIAL SCIENCES RESEARCH SCIENTIST Work Phone: [facility] 06-09-2025 12:59-0400 Body mass index (BMI) [Ratio] 37.36 kg/m2 [facility] PACKING CLERK.SOCIAL SCIENCES RESEARCH SCIENTIST Work Phone: [facility] 06-09-2025 12:59-0400 Body weight 83.2 kg [facility] PACKING CLERK.SOCIAL SCIENCES RESEARCH SCIENTIST Work Phone: [facility] 06-09-2025 12:59-0400 Diastolic blood pressure 55 mm[Hg] [facility] PACKING CLERK.SOCIAL SCIENCES RESEARCH SCIENTIST Work Phone: [facility] 06-09-2025 12:59-0400 Heart rate 74 /min [facility] PACKING CLERK.SOCIAL SCIENCES RESEARCH SCIENTIST Work Phone: [facility] 06-09-2025 12:59-0400 Respiratory rate 16 /min [facility] PACKING CLERK.SOCIAL SCIENCES RESEARCH SCIENTIST Work Phone: [facility] 06-09-2025 12:59-0400 SaO2% (BldA) [Mass fraction] 96 % Malu Veronika PACKING CLERK.SOCIAL SCIENCES RESEARCH SCIENTIST Work Phone: [facility] 06-09-2025 12:59-0400 Systolic blood pressure 95 mm[Hg] Malu Veronika PACKING CLERK.SOCIAL SCIENCES RESEARCH SCIENTIST Work Phone: [facility] 04-15-2025 15:13-0400 Body height 148.5 cm Destini Alejandra PACKING CLERK.SOCIAL SCIENCES RESEARCH SCIENTIST Work Phone: [facility] 04-15-2025 15:13-0400 Body mass index (BMI) [Ratio] 37.31 kg/m2 Destini Alejandra PACKING CLERK.SOCIAL SCIENCES RESEARCH SCIENTIST Work Phone: [facility] 04-15-2025 15:13-0400 Body weight 82.3 kg Destini Alejandra PACKING CLERK.SOCIAL SCIENCES RESEARCH SCIENTIST Work Phone: [facility] 04-15-2025 15:13-0400 Diastolic blood pressure 70 mm[Hg] Destini Alejandra PACKING CLERK.SOCIAL SCIENCES RESEARCH SCIENTIST Work Phone: [facility] 04-15-2025 15:13-0400 Heart rate 70 /min Destini Alejandra PACKING CLERK.SOCIAL SCIENCES RESEARCH SCIENTIST Work Phone: [facility] 04-15-2025 15:13-0400 Systolic blood pressure 102 mm[Hg] Destini Alejandra PACKING CLERK.SOCIAL SCIENCES RESEARCH SCIENTIST Work Phone: [facility] 07-09-2024 14:39-0400 Body mass index (BMI) [Ratio] 36.19 kg/m2 Adeel Hayes MD Work Phone: [facility] 07-09-2024 14:39-0400 Body temperature 98.49 [degF] Adeel Hayes MD Work Phone: [facility] 07-09-2024 14:39-0400 Body weight 79.8 kg Adeel Hayes MD Work Phone: [facility] 07-09-2024 14:39-0400 Diastolic blood pressure 68 mm[Hg] Adeel Hayes MD Work Phone: [facility] 07-09-2024 14:39-0400 Heart rate 67 /min Adeel Hayes MD Work Phone: [facility] 07-09-2024 14:39-0400 Respiratory rate 16 /min Adeel Hayes MD Work Phone: [facility] 07-09-2024 14:39-0400 SaO2% (BldA) [Mass fraction] 99 % Adeel Hayes MD Work Phone: [facility] 07-09-2024 14:39-0400 Systolic blood pressure 118 mm[Hg] Adeel Hayes MD Work Phone: [facility] 06-23-2024 12:59-0400 Body mass index (BMI) [Ratio] 36.14 kg/m2 Destini Alejandra PACKING CLERK.SOCIAL SCIENCES RESEARCH SCIENTIST Work Phone: [facility] 06-23-2024 12:59-0400 Body weight 79.7 kg Destini Alejandra PACKING CLERK.SOCIAL SCIENCES RESEARCH SCIENTIST Work Phone: [facility] 06-23-2024 12:59-0400 Diastolic blood pressure 64 mm[Hg] Destini Alejandra PACKING CLERK.SOCIAL SCIENCES RESEARCH SCIENTIST Work Phone: [facility] 06-23-2024 12:59-0400 Heart rate 72 /min Destini Alejandra PACKING CLERK.SOCIAL SCIENCES RESEARCH SCIENTIST Work Phone: [facility] 06-23-2024 12:59-0400 SaO2% (BldA) [Mass fraction] 96 % Destini Alejandra PACKING CLERK.SOCIAL SCIENCES RESEARCH SCIENTIST Work Phone: [facility] 06-23-2024 12:59-0400 Systolic blood pressure 118 mm[Hg] Destini Alejandra PACKING CLERK.SOCIAL SCIENCES RESEARCH SCIENTIST Work Phone: [facility] 05-28-2024 15:12-0400 Body height 148.5 cm Adeel Hayes MD Work Phone: [facility] 05-28-2024 15:12-0400 Body mass index (BMI) [Ratio] 36.05 kg/m2 Adeel Hayes MD Work Phone: [facility] 05-28-2024 15:12-0400 Body temperature 97.7 [degF] Adeel Hayes MD Work Phone: [facility] 05-28-2024 15:12-0400 Body weight 79.5 kg Adeel Hayes MD Work Phone: [facility] 05-28-2024 15:12-0400 Diastolic blood pressure 82 mm[Hg] Adeel Hayes MD Work Phone: [facility] 05-28-2024 15:12-0400 Heart rate 68 /min Adeel Hayes MD Work Phone: [facility] 05-28-2024 15:12-0400 Respiratory rate 16 /min Adeel Hayes MD Work Phone: [facility] 05-28-2024 15:12-0400 SaO2% (BldA) [Mass fraction] 98 % Adeel Hayes MD Work Phone: [facility] 05-28-2024 15:12-0400 Systolic blood pressure 128 mm[Hg] Adeel Hayes MD Work Phone: [facility] 03-12-2024 09:44-0400 Body mass index (BMI) [Ratio] 33.44 kg/m2 Adeel Hayes MD Work Phone: [facility] 03-12-2024 09:44-0400 Body temperature 98.01 [degF] Adeel Hayes MD Work Phone: [facility] 03-12-2024 09:44-0400 Body weight 80.29 kg Adeel Hayes MD Work Phone: [facility] 03-12-2024 09:44-0400 Diastolic blood pressure 62 mm[Hg] Adeel Hayes MD Work Phone: [facility] 03-12-2024 09:44-0400 Heart rate 61 /min Adeel Hayes MD Work Phone: [facility] 03-12-2024 09:44-0400 Respiratory rate 18 /min Adeel Hayes MD Work Phone: [facility] 03-12-2024 09:44-0400 SaO2% (BldA) [Mass fraction] 98 % Adeel Hayes MD Work Phone: [facility] 03-12-2024 09:44-0400 Systolic blood pressure 112 mm[Hg] Adeel Hayes MD Work Phone: [facility] 02-12-2024 11:14-0400 Body mass index (BMI) [Ratio] 33.25 kg/m2 Destini Alejandra PACKING CLERK.SOCIAL SCIENCES RESEARCH SCIENTIST Work Phone: [facility] 02-12-2024 11:14-0400 Body weight 79.83 kg Destini Alejandra PACKING CLERK.SOCIAL SCIENCES RESEARCH SCIENTIST Work Phone: [facility] 02-12-2024 11:14-0400 Diastolic blood pressure 64 mm[Hg] Destini Alejandra PACKING CLERK.SOCIAL SCIENCES RESEARCH SCIENTIST Work Phone: [facility] 02-12-2024 11:14-0400 Heart rate 71 /min Destini Alejandra PACKING CLERK.SOCIAL SCIENCES RESEARCH SCIENTIST Work Phone: [facility] 02-12-2024 11:14-0400 SaO2% (BldA) [Mass fraction] 97 % Destini Alejandra PACKING CLERK.SOCIAL SCIENCES RESEARCH SCIENTIST Work Phone: [facility] 02-12-2024 11:14-0400 Systolic blood pressure 110 mm[Hg] Destini Alejandra PACKING CLERK.SOCIAL SCIENCES RESEARCH SCIENTIST Work Phone: [facility] 11-30-2023 09:53-0500 Body weight 82.83 kg Adeel Hayes MD Work Phone: [facility] 11-30-2023 09:53-0500 Diastolic blood pressure 68 mm[Hg] Adeel Hayes MD Work Phone: [facility] 11-30-2023 09:53-0500 Heart rate 64 /min Adeel Hayes MD Work Phone: [facility] 11-30-2023 09:53-0500 Respiratory rate 16 /min Adeel Hayes MD Work Phone: [facility] 11-30-2023 09:53-0500 SaO2% (BldA) [Mass fraction] 97 % Adeel Hayes MD Work Phone: [facility] 11-30-2023 09:53-0500 Systolic blood pressure 108 mm[Hg] Adeel Hayes MD Work Phone: [facility] 09-18-2023 10:38-0500 Body temperature 98.01 [degF] Adeel Hayes MD Work Phone: [facility] 09-18-2023 10:38-0500 Body weight 83.92 kg Adeel Hayes MD Work Phone: [facility] 09-18-2023 10:38-0500 Heart rate 61 /min Adeel Hayes MD Work Phone: [facility] 09-18-2023 10:38-0500 Respiratory rate 18 /min Adeel Hayes MD Work Phone: [facility] 09-18-2023 10:38-0500 SaO2% (BldA) [Mass fraction] 97 % Adeel Hayes MD Work Phone: [facility] 03-10-2023 09:43-0400 Body weight 82.46 kg Adeel Hayes MD Work Phone: [facility] 03-10-2023 09:43-0400 Diastolic blood pressure 76 mm[Hg] Adeel Hayes MD Work Phone: [facility] 03-10-2023 09:43-0400 Heart rate 60 /min Adeel Hayes MD Work Phone: [facility] 03-10-2023 09:43-0400 Respiratory rate 16 /min Adeel Hayes MD Work Phone: [facility] 03-10-2023 09:43-0400 Systolic blood pressure 130 mm[Hg] Adeel Hayes MD Work Phone: [facility] 11-17-2022 13:34-0500 Body temperature 97.81 [degF] Griselda Baljit PACKING CLERK.SOCIAL SCIENCES RESEARCH SCIENTIST Work Phone: [facility] 11-17-2022 13:34-0500 Diastolic blood pressure 74 mm[Hg] Griselda Subramaniank PACKING CLERK.SOCIAL SCIENCES RESEARCH SCIENTIST Work Phone: [facility] 11-17-2022 13:34-0500 Heart rate 68 /min Griselda Subramaniank PACKING CLERK.SOCIAL SCIENCES RESEARCH SCIENTIST Work Phone: [facility] 11-17-2022 13:34-0500 Respiratory rate 18 /min Griselda Baljit PACKING CLERK.SOCIAL SCIENCES RESEARCH SCIENTIST Work Phone: [facility] 11-17-2022 13:34-0500 SaO2% (BldA) [Mass fraction] 96 % Griselda Smiley PACKING CLERK.SOCIAL SCIENCES RESEARCH SCIENTIST Work Phone: [facility] 11-17-2022 13:34-0500 Systolic blood pressure 136 mm[Hg] Griselda Subramaniank PACKING CLERK.SOCIAL SCIENCES RESEARCH SCIENTIST Work Phone: [facility] 10-04-2022 13:36-0500 Body temperature 98.8 [degF] Adeel Hayes MD Work Phone: [facility] 10-04-2022 13:36-0500 Diastolic blood pressure 78 mm[Hg] Adeel Hayes MD Work Phone: [facility] 10-04-2022 13:36-0500 Heart rate 69 /min Adeel Hayes MD Work Phone: [facility] 10-04-2022 13:36-0500 Respiratory rate 18 /min Aedel Hayes MD Work Phone: [facility] 10-04-2022 13:36-0500 SaO2% (BldA) [Mass fraction] 96 % Adeel Hayes MD Work Phone: [facility] 10-04-2022 13:36-0500 Systolic blood pressure 126 mm[Hg] Adeel Hayes MD Work Phone: [facility] 09-28-2022 10:35-0500 Body temperature 98.4 [degF] Melina Doan PACKING CLERK.SOCIAL SCIENCES RESEARCH SCIENTIST Work Phone: [facility] 09-28-2022 10:35-0500 Diastolic blood pressure 82 mm[Hg] Melina Doan APRN.SOCIAL SCIENCES RESEARCH SCIENTIST Work Phone: [facility] 09-28-2022 10:35-0500 Heart rate 70 /min Melina Doan APRN.SOCIAL SCIENCES RESEARCH SCIENTIST Work Phone: [facility] 09-28-2022 10:35-0500 Respiratory rate 18 /min Melina Doan APRN.SOCIAL SCIENCES RESEARCH SCIENTIST Work Phone: [facility] 09-28-2022 10:35-0500 SaO2% (BldA) [Mass fraction] 97 % Melina Doan APRN.SOCIAL SCIENCES RESEARCH SCIENTIST Work Phone: [facility] 09-28-2022 10:35-0500 Systolic blood pressure 138 mm[Hg] Melina Doan APRN.SOCIAL SCIENCES RESEARCH SCIENTIST Work Phone: [facility] 09-18-2022 17:42-0500 Body temperature 98.29 [degF] Melina Doan APRN.SOCIAL SCIENCES RESEARCH SCIENTIST Work Phone: [facility] 09-18-2022 17:42-0500 Body weight 83.19 kg Melina Doan APRN.SOCIAL SCIENCES RESEARCH SCIENTIST Work Phone: [facility] 09-18-2022 17:42-0500 Diastolic blood pressure 72 mm[Hg] Melina Doan APRN.SOCIAL SCIENCES RESEARCH SCIENTIST Work Phone: [facility] 09-18-2022 17:42-0500 Heart rate 70 /min Melina Doan APRN.SOCIAL SCIENCES RESEARCH SCIENTIST Work Phone: [facility] 09-18-2022 17:42-0500 Respiratory rate 21 /min Melina Doan APRN.SOCIAL SCIENCES RESEARCH SCIENTIST Work Phone: [facility] 09-18-2022 17:42-0500 SaO2% (BldA) [Mass fraction] 94 % Melina Doan APRN.SOCIAL SCIENCES RESEARCH SCIENTIST Work Phone: [facility] 09-18-2022 17:42-0500 Systolic blood pressure 124 mm[Hg] Melina Doan APRN.SOCIAL SCIENCES RESEARCH SCIENTIST Work Phone: [facility] 08-14-2022 11:05-0500 Body weight 83.46 kg Adeel Hayes MD Work Phone: [facility] 08-14-2022 11:05-0500 Diastolic blood pressure 82 mm[Hg] Adeel Hayes MD Work Phone: [facility] 08-14-2022 11:05-0500 Heart rate 66 /min Adeel Hayes MD Work Phone: [facility] 08-14-2022 11:05-0500 SaO2% (BldA) [Mass fraction] 99 % Adeel Hayes MD Work Phone: [facility] 08-14-2022 11:05-0500 Systolic blood pressure 126 mm[Hg] Adeel Hayes MD Work Phone: [facility] 03-24-2022 15:01-0400 Body weight 83.46 kg Adeel Hayes MD Work Phone: [facility] 03-24-2022 15:01-0400 Diastolic blood pressure 64 mm[Hg] Adeel Hayes MD Work Phone: [facility] 03-24-2022 15:01-0400 Heart rate 65 /min Adeel Hayes MD Work Phone: [facility] 03-24-2022 15:01-0400 SaO2% (BldA) [Mass fraction] 95 % Adeel Hayes MD Work Phone: [facility] 03-24-2022 15:01-0400 Systolic blood pressure 108 mm[Hg] Adeel Hayes MD Work Phone: [facility] Encounters Encounter Date Encounter Type Care Provider Facility Start: 2025 ambulatory Adeel D Talampas Facilit y:[facility] Start: 07-14-2025 ambulatory Adeel D Talampas Facilit y:[facility] Start: 07-01-2025 End: 07-01-2025 ambulatory Adeel D Talampas OLS Facility:[facility] Start: 06-16-2025 End: 06-19-2025 Telephone encounter Adeel Hayes MD Work Phone: [facility] [place] Comment on above: Medication Request Start: 06-12-2025 End: 06-12-2025 Telephone encounter Adeel Hayes MD Work Phone: [facility] [place] Comment on above: Results Start: 06-09-2025 End: 06-09-2025 ambulatory MALU TOWNSEND Facility:[facility] Start: 06-09-2025 End: 06-09-2025 Office outpatient visit 25 minutes Malu Townsend PACKING CLERK.SOCIAL SCIENCES RESEARCH SCIENTIST Work Phone: [facility] [place] Comment on above: Medicare annual well ness visit, subsequent (Primary Dx); Hypotension, unspecified hypotension type; Intertrigo; Malaise; Episodic lightheadedness; Anemia, unspecified type; Asymptomatic menopause; Memory impairment Start: 06-09-2025 End: 06-09-2025 ambulatory MALU TOWNSEND Facility:[facility] Start: 06-09-2025 End: 06-09-2025 Patient encounter procedure Malu Townsend PACKING CLERK.SOCIAL SCIENCES RESEARCH SCIENTIST Work Phone: [facility] Start: 04-23-2025 End: 04-30-2025 Telephone encounter Adeel Hayes MD Work Phone: [facility] [place] Comment on above: Patient Update Start: 04-15-2025 End: 04-15-2025 Patient encounter procedure Destini Lee PACKING CLERK.SOCIAL SCIENCES RESEARCH SCIENTIST Work Phone: [facility] [place] Comment on above: Essential (primary) hypertension; Dizziness and giddiness; Bilateral age-related macular degeneration; Adjustment disorder with mixed anxiety and depressed mood Start: 04-15-2025 End: 04-15-2025 ambulatory DESTINI LEE Facility:[facility] Start: 04-14-2025 End: 04-15-2025 Telephone encounter Adeel Hayes MD Work Phone: [facility] [place] Comment on above: Patient Update Start: 04-09-2025 End: 04-09-[address] Adeel Hayes MD Work Phone: -[facility] Start: 04-09-2025 End: 04-09-2025 Departed Referred Adeel Hayes MD -[facility] Start: 04-09-2025 End: 04-09-2025 ambulatory Adeel LAUGHLIN Facility:[facility] Start: 04-07-2025 End: 04-08-2025 Telephone encounter Adeel Hayes MD Work Phone: [facility] [place] Comment on above: Patient Question Start: 03-30-2025 End: 04-02-2025 Telephone encounter Adeel Hayes MD Work Phone: [facility] [place] Comment on above: Orders Start: 02-10-2025 End: 02-10-2025 Patient encounter procedure Victoria Gabi Work Phone: Podiatry Comment on above: Onychomycosis (Prima ry Dx); Pain in toe of left foot; Pain in toe of right foot; Callus of foot; Hammer toe of right foot Start: 02-10-2025 End: 02-10-2025 ambulatory VICTORIA ASHLEY Facility:[facility] Start: 01-26-2025 End: 01-27-2025 Telephone encounter Adeel Hayes MD Work Phone: Internal Medicine [place] Comment on above: Electronic Communica tion ([facility]) Start: 01-06-2025 ambulatory Adeel LAUGHLIN Fac ility:[facility] Start: 12-23-2024 End: 12-24-2024 Telephone encounter Adeel Hayes MD Work Phone: [facility] [place] Comment on above: report a fall on 12/06 Start: 12-16-2024 End: 12-16-2024 Home visit Adeel Hayes MD Work Phone: Internal Medicine [place] Comment on above: Anxiety disorder, un specified type (Primary Dx) Start: 11-25-2024 End: 11-26-2024 Telephone encounter Adeel Hayes MD Work Phone: [facility] [place] Comment on above: verbal orders Start: 11-18-2024 End: 11-18-2024 Telephone encounter Adeel Hayes MD Work Phone: [facility] [place] Comment on above: Forms Start: 11-13-2024 End: 11-14-2024 Telephone encounter Adeel Hayes MD Work Phone: [facility] [place] Comment on above: [facility]- verbal orders needed Start: 11-03-2024 End: 11-03-2024 Refill Adeel Hayes MD Work Phone: [facility] [place] Comment on above: Refill Request Start: 10-29-2024 End: 11-04-2024 Telephone encounter Adeel Hayes MD Work Phone: Internal Medicine [place] Comment on above: Patient Request Start: 09-25-2024 End: 10-06-2024 Telephone encounter Adeel Hayes MD Work Phone: [facility] [place] Comment on above: Patient Question Start: 09-16-2024 End: 09-22-2024 Telephone encounter Adeel Hayes MD Work Phone: Internal [facility] [place] Comment on above: Provider takes insur ance Orders Start: 09-09-2024 End: 09-09-2024 ambulatory VICTORIA ASHLEY Facility:[facility] Start: 09-09-2024 End: 09-09-2024 Patient encounter procedure Victoria Ashley Work Phone: Podiatry Comment on above: Onychomycosis (Prima ry Dx); Pain in toe of left foot; Pain in toe of right foot Start: 08-11-2024 End: 08-15-2024 Telephone encounter Adeel Hayes MD Work Phone: [facility] [place] Comment on above: Patient Question; Or ders Start: 07-30-2024 End: 08-08-2024 Telephone encounter Adeel Hayes MD Work Phone: [facility] [place] Comment on above: Orders for admission Start: 07-23-2024 End: 07-31-2024 Telephone encounter Adeel Hayes MD Work Phone: Internal Medicine [place] Comment on above: Patient Update Start: 07-18-2024 End: 08-04-2024 Telephone encounter Adeel Hayes MD Work Phone: [facility] [place] Comment on above: Patient Update; Jesica ent Question Start: 07-16-2024 End: 07-16-2024 Telephone encounter Adeel Hayes MD Work Phone: Internal [facility] [place] Comment on above: Patient Update Start: 07-14-2024 End: 07-14-2024 Telephone encounter Adeel Hayes MD Work Phone: [facility] [place] Comment on above: Patient Question Start: 07-12-2024 End: 07-12-2024 ambulatory Marjorie Aviles RN NURSE CLOTH FINISHING [employer] BACK [employer]ER Comment on above: Medication Question Start: 07-10-2024 End: 07-21-2024 Telephone encounter Adeel Hayes MD Work Phone: Internal Medicine [place] Comment on above: Medication Problem Insurance Authorizat [...] Adeel Hayes MD Work Phone: [facility] [place] Comment on above: Opened In Error Patient Question Start: 06-23-2024 End: 06-23-2024 Telephone encounter Adeel Hayes MD Work Phone: Internal Medicine [place] Comment on above: Patient Question referral to [facility] Start: 06-23-2024 End: 06-23-2024 Patient encounter procedure Destini Lee APRN.SOCIAL SCIENCES RESEARCH SCIENTIST Work Phone: Internal Medicine [place] Comment on above: Sleep disturbance (P rimary Dx); Repeated falls; Situational mixed anxiety and depressive disorder; Diarrhea, unspecified type Start: 06-10-2024 End: 06-13-2024 Telephone encounter Adeel Hayes MD Work Phone: [facility] [place] Comment on above: Patient Question Start: 05-28-2024 End: 05-28-2024 Patient encounter procedure Adeel Hayes MD Work Phone: [facility] [place] Comment on above: Medicare annual well ness visit, subsequent (Primary Dx); Gait instability; Essential hypertension; Hypokalemia; Hypertriglyceridemia Start: 05-06-2024 Refill Adeel purvis MD Work Phone: [facility] [place] Comment on above: Refill Request Start: 04-22-2024 Telephone encounter Adeel alcantara MD Work Phone: [facility] [place] Comment on above: Patient Question Start: 04-08-2024 End: 04-08-2024 Patient encounter procedure Victoria Ashley Work Phone: Podiatry Comment on above: Onychomycosis (Prima ry Dx); Pain in toe of left foot; Pain in toe of right foot Start: 03-24-2024 Telephone encounter Adeel alcantara MD Work Phone: Internal Medicine [place] Comment on above: Results Start: 03-21-2024 Home visit Adeel purvis MD Work Phone: [facility] [place] Comment on above: Aftercare following joint replacement surgery, unspecified joint (Primary Dx) Start: 03-13-2024 Refill Adeel purvis MD Work Phone: Internal [facility] [place] Comment on above: Refill Request Start: 03-12-2024 End: 03-12-2024 Office outpatient visit 25 minutes Adeel Hayes MD Work Phone: [facility] [place] Comment on above: 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); Situational mixed anxiety and depressive disorder; Gait instability; Essential hypertension; Hypokalemia; Screening for colon cancer; Encounter for immunization Start: 02-15-2024 Telephone encounter Ashley ESTRADA Navigation Start: 02-12-2024 End: 02-12-2024 Patient encounter procedure Destini Lee APRN.CNP Work Phone: Internal Medicine [place] Comment on above: Situational mixed an xiety and depressive disorder (Primary Dx); Macular degeneration of both eyes, unspecified type Start: 01-17-2024 Telephone encounter Adeel alcantara MD Work Phone: [facility] [place] Comment on above: Patient Question Start: 12-21-2023 ambulatory Gauri Mcleod [facility] Comment on above: Population Health Na vigation [...] Phone: Internal Medicine [place] Comment on above: Letter Start: 09-18-2023 End: [...] of right foot Start: 08-31-2023 Refill Destini Quintero PRN.CNP Work Phone: Family Medicine [place] Comment on above: Refill Request Start: 08-14-2023 Telephone encounter Adeel alcantara MD Work Phone: [facility] [place] Comment on above: patient questions Start: 08-07-2023 Refill Adeel uprvis MD Work Phone: [facility] [place] Comment on above: Refill Request Start: 06-08-2023 Refill Adeel purvis MD Work Phone: [facility] [place] Comment on above: Refill Request; Refi ll [...] Adeel Hayes MD Work Phone: [facility] [place] Comment on above: 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); Candidal intertrigo; Essential hypertension; Class 1 obesity due to excess calories without serious comorbidity with body mass index (BMI) of 34.0 to 34.9 in adult; Screening for colon cancer Start: 02-20-2023 Telephone encounter Adeel alcantara MD Work Phone: [facility] [place] Comment on above: Medication Question Start: 02-12-2023 Telephone encounter Adeel alcantara MD Work Phone: Internal Medicine [place] Comment on above: Medication Question; Constipation Start: 02-01-2023 ambulatory Adeel purvis MD Work Phone: Internal Medicine [place] Comment on above: Insect Bite Start: 01-08-2023 Non-patient / Non-visit Dr. Samantha Hayes Work Phone: [facility] Start: 01-08-2023 End: 01-08-[address] Adeel Hayes Work Phone: [facility] Work Phone: Start: 01-08-2023 End: 01-08-[address] Adeel Hayes Work Phone: [facility]-Pulmonary Services/Neurology Start: 12-20-2022 Refill Adeel purvis MD Work Phone: Internal Medicine [place] Comment on above: Refill Request Start: 12-12-2022 Refill Adeel purvis MD Work Phone: [facility] [place] Comment on above: Refill Request Start: 11-22-2022 Telephone encounter Adeel alcantara MD Work Phone: [facility] [place] Comment on above: Medication Question Start: 11-17-2022 End: 11-17-2022 Patient encounter procedure Griselda Baljit CHACON Work Phone: [facility] Comment on above: Itching (Primary Dx) Start: 11-14-2022 Telephone encounter Adeel alcantara MD Work Phone: [facility] Medicine [place] Comment on above: Pain Start: 10-26-2022 Telephone encounter Adeel alcantara MD Work Phone: Internal Medicine [place] Comment on above: requesting medicatio n (yeast infection) Start: 10-05-2022 Telephone encounter Ashley [facility] [place] Comment on above: Patient Question Start: 10-04-2022 End: 10-04-2022 Office outpatient visit 25 minutes Adeel Hayes MD Work Phone: Internal Medicine [place] Comment on above: Candidal intertrigo (Primary Dx); [place] eye disease of both eyes; Closed fracture of right upper extremity, sequela Start: 09-29-2022 Telephone encounter Adeel alcantara MD Work Phone: [facility] [place] Comment on above: Patient Question Orders Start: 09-28-2022 Telephone encounter Adeel alcantara MD Work Phone: [facility] [place] Comment on above: Patient Question Start: 09-28-2022 End: 09-28-2022 Patient encounter procedure Melina Doan APRN.SOCIAL SCIENCES RESEARCH SCIENTIST Work Phone: [facility] Comment on above: Skin rash (Primary D x) Start: 09-22-2022 Telephone encounter Adeel alcantara MD Work Phone: [facility] [place] Comment on above: Patient Question; Pa tient Update Start: 09-19-2022 Telephone encounter Jean Wagner DO Work Phone: Radiology Comment on above: Patient Question Start: 09-18-2022 End: 09-18-2022 Subsequent hospital visit by physician Xr [facility] [place] Work Phone: Radiology Comment on above: Pain [R52] Start: 09-18-2022 End: 09-18-2022 Patient encounter procedure Melina Doan APRN.SOCIAL SCIENCES RESEARCH SCIENTIST Work Phone: [facility] Comment on above: Pain (Primary Dx) Start: 08-18-2022 Refill Adeel purvis MD Work Phone: Internal Medicine [place] Comment on above: Refill Request Start: 08-16-2022 ambulatory Adeel purvis MD Work Phone: [facility] [place] Comment on above: Flu Shot reaction Start: [...] Adeel purvis MD Work Phone: [facility] [place] Comment on above: Refill Request Start: 04-06-2022 Refill Adeel purvis MD Work Phone: [facility] [place] Comment on above: Refill Request Start: 03-28-2022 Refill Adeel purvis MD Work Phone: Internal Medicine [place] Comment on above: Refill Request Results, Lab Start: 03-24-2022 End: 03-24-2022 Office outpatient visit 25 minutes Adeel Hayes MD Work Phone: [facility] [place] Comment on above: Essential hypertensi on (Primary Dx); Persistent disorder of initiating or maintaining sleep; Vitamin D deficiency; Hypokalemia; Varicose veins of both lower extremities, unspecified whether complicated; Hearing difficulty of both ears Start: 01-31-2022 Telephone encounter Adeel alcantara MD Work Phone: [facility] [place] Comment on above: Patient Question Start: 01-09-2022 Telephone encounter Adeel alcantara MD Work Phone: [facility] [place] Comment on above: Medication Question Start: 12-30-2021 Refill Adeel purvis MD Work Phone: Internal Medicine [place] Comment on above: Refill Request Patient Question [...] Phone: Start: 09-18-2022 Radex forearm 2 homa Cooper omzhao Franki GOLD.SOCIAL SCIENCES RESEARCH SCIENTIST Work Phone: Start: 08-14-2022 INFLUENZA SEASONAL QUADRIVALENT HIGH DOSE AGE 65+ Adeel Hayes MD Work Phone: H/O: artificial joint Aftercare following joint replacement surgery, unspecified joint Adeel Hayes MD Work Phone: H/O: surgery S/P anal fissurectomy Plan of Treatment Date Care Activity Detail Author Start: 06-09-2028 Diabetes Screening Diabetes Screening [facility] Start: 03-12-2027 Diabetes Screening Diabetes Screening [facility] Start: 01-18-2027 LIPID SCREEN LIPID SCREEN [facility] Start: 06-09-2026 Annual PCP Team Chronic Disease Visit Annual PCP Team Chronic Disease Visit [facility] Start: 06-09-2026 RSV Vaccine (1 - 1-dose 75+ series) RSV Vaccine (1 - 1-dose 75+ series) [facility] Comment on above: Postponed from 2021 (Declined at t his time) Start: 06-09-2026 Shingrix Vaccine (2 of 3) Shingrix Vaccine (2 of 3) [facility] Comment on above: Postponed from 11/21/2012 (Declined at t his time) Start: 06-09-2026 Urine microalbumin profile DTaP,Tdap,Td Vaccine (2 - Td or Tdap) [facility] Comment on above: Postponed from 09/27/2022 (Declined at t his time) Start: 04-15-2026 Annual PCP Team Chronic Disease Visit Annual PCP Team Chronic Disease Visit [facility] Start: 03-09-2026 DIABETES SCREEN DIABETES SCREEN [facility] Start: 03-09-2026 Diabetes Screening Diabetes Screening [facility] Start: 03-01-2026 LIPID SCREEN LIPID SCREEN [facility] Start: 12-16-2025 End: 12-16-2025 Patient encounter procedure 12/16/2025 3:00 PM EDT Office Visit [facility] [place] [address] [facility] [place], [place] [address] Adeel Hayes MD [address] [place] [address] 6 Month follow up Internal Medicine [place] Comment on above: 6 Month follow up Start: 09-18-2025 End: 09-18-2025 Patient encounter procedure 09/18/2025 1:40 PM EST Appointment Radiology [address] [place] [id number] Asymptomatic menopause [Z78.0] Radiology Comment on above: Asymptomatic menopause [Z78.0] Start: 07-09-2025 Annual PCP Team Chronic Disease Visit Annual PCP Team Chronic Disease Visit [facility] Start: 07-09-2025 BP Controlled (<130/80) BP Controlled (<130/80) [facility] Start: 07-07-2025 End: 07-07-2025 Patient encounter procedure 07/07/2025 1:40 PM EDT Office Visit [facility] [place] [address] [place] [address] Malu Townsend, PACKING CLERK.SOCIAL SCIENCES RESEARCH SCIENTIST [address] [facility] [place] [address] 4 week follow up. BP [facility] [place] Comment on above: 4 week follow up. BP Start: 06-30-2025 End: 06-30-2025 Patient encounter procedure 06/30/2025 1:00 PM EDT Office Visit Podiatry [address] [place] [address] Victoria Ashley [address] [place] [address] 6 month follow up foot care Podiatry Comment on above: 6 month follow up foot care Start: 06-23-2025 Annual PCP Team Chronic Disease Visit Annual PCP Team Chronic Disease Visit [facility] Start: 06-23-2025 BP Controlled (<130/80) BP Controlled (<130/80) [facility] Start: 06-09-2025 End: 06-09-2025 Patient encounter procedure 06/09/2025 1:00 PM EDT Office Visit [facility] [place] [address] [place] [address] Malu Townsend, PACKING CLERK.SOCIAL SCIENCES RESEARCH SCIENTIST [address] [place] [address] Medicare Wellness ( RE 06/15/2025) [facility] [place] Comment on above: Medicare Wellness ( RE 06/15/2025) Start: 06-08-2025 Influenza vaccination Influenza Vaccine (#1) [facility] Start: 06-02-2025 End: 06-02-2025 Patient encounter procedure 06/02/2025 1:40 PM EDT Office Visit [facility] [place] [address] [place] [address] Destini Lee, PACKING CLERK.SOCIAL SCIENCES RESEARCH SCIENTIST [address] [place] [address] Medicare Wellness [facility] [place] Comment on above: Medicare Wellness Start: 06-02-2025 End: 06-02-2025 Patient encounter procedure 06/02/2025 9:20 AM EDT Office Visit [facility] [place] [address] [place] [address] Adeel Hayes MD [address] [place] [address] Medicare Wellness [facility] [place] Comment on above: Medicare Wellness Start: 05-28-2025 Annual PCP Team Chronic Disease Visit Annual PCP Team Chronic Disease Visit [facility] Start: 03-25-2025 End: 03-25-2025 Patient encounter procedure 03/25/2025 9:20 AM EDT Office Visit [facility] [place] [address] [place] [address] Adeel Hayes MD [address] [place] [address] Medicare Wellness [facility] [place] Comment on above: Medicare Wellness Start: 03-24-2025 DIABETES SCREEN DIABETES SCREEN [facility] Start: 03-12-2025 Annual PCP Team Chronic Disease Visit Annual PCP Team Chronic Disease Visit [facility] Start: 03-12-2025 BP Controlled (<130/80) BP Controlled (<130/80) [facility] Start: 02-11-2025 Annual PCP Team Chronic Disease Visit Annual PCP Team Chronic Disease Visit [facility] Start: 02-11-2025 BP Controlled (<130/80) BP Controlled (<130/80) [facility] Start: 02-10-2025 End: 02-10-2025 Patient encounter procedure Podiatry Comment on above: 5 month follow up nail care Start: 01-18-2025 DIABETES SCREEN DIABETES SCREEN [facility] Start: 12-09-2024 End: 12-09-2024 Patient encounter procedure 12/09/2024 11:20 AM EST Office Visit [facility] [place] [address] [place], [place] [id number] Destini Lee APRN.SOCIAL SCIENCES RESEARCH SCIENTIST [address] [place], [place] [id number] 6 month follow up [facility] [place] Comment on above: 6 month follow up Start: 11-30-2024 Annual PCP Team Chronic Disease Visit Annual PCP Team Chronic Disease Visit [facility] Start: 11-30-2024 BP Controlled (<130/80) BP Controlled (<130/80) [facility] Start: 10-08-2024 Advance Directive Discussion Advance Directive Discussion [facility] Start: 10-08-2024 Medicare Advantage Annual Wellness Visit Medicare Advantage Annual Wellness Visit [facility] Start: 09-23-2024 End: 09-23-2024 Patient encounter procedure 09/23/2024 10:20 AM EST Office Visit [facility] Medicine [place] [address] [place], [place] [id number] Aedel Hayes MD [address] [place], [place] [id number] 6 month follow up [facility] [place] Comment on above: 6 month follow up Start: 09-18-2024 Annual PCP Team Chronic Disease Visit Annual PCP Team Chronic Disease Visit [facility] Start: 09-18-2024 BP Controlled (<130/80) BP Controlled (<130/80) [facility] Start: 09-18-2024 RSV Vaccine (1 - 1-dose 60+ series) RSV Vaccine (1 - 1-dose 60+ series) [facility] Comment on above: Postponed from 2006 (Declined at t his time) Start: 09-18-2024 RSV Vaccine (1 - 1-dose 75+ series) RSV Vaccine (1 - 1-dose 75+ series) [facility] Comment on above: Postponed from 2021 (Declined at t his time) Start: 09-09-2024 End: 09-09-2024 Patient encounter procedure 09/09/2024 11:15 AM EST Office Visit Podiatry [address] [facility], [place] [id number] Victoria Ashley [address] [place], [place] [id number] 5 MONTH FOLLOW UP NAIL CARE Podiatry Comment on above: 5 MONTH FOLLOW UP NAIL CARE Start: 08-04-2024 End: 08-04-2024 Patient encounter procedure 08/04/2024 1:00 PM EDT Office Visit [facility] [place] [address] [place] [address] Destini Lee APRN.SOCIAL SCIENCES RESEARCH SCIENTIST [address] [place], [place] [id number] 6 week follow up [facility] [place] Comment on above: 6 week follow up Start: 07-09-2024 End: 07-09-2024 Patient encounter procedure 07/09/2024 2:40 PM EDT Office Visit [facility] Medicine [place] [address] [place] [address] Adeel Hayes MD [address] [place] [address] balance issue, possible ears [facility] [place] Comment on above: balance issue, possible ears Start: 06-08-2024 Influenza vaccination Influenza Vaccine (#1) [facility] Start: 05-28-2024 End: 05-28-2024 Patient encounter procedure 05/28/2024 2:20 PM EDT Office Visit [facility] [place] [address] [place] [address] Adeel Hayes MD [address] [place] [address] Medicare wellness/Vitamin question [facility] [place] Comment on above: Medicare wellness/Vitamin question Start: 04-08-2024 End: 04-08-2024 Patient encounter procedure 04/08/2024 11:30 AM EDT Office Visit Podiatry [address] [place] [address] Victoria Ashley [address] [place] [address] nail care Podiatry Comment on above: nail care Start: 03-19-2024 End: 06-18-2024 25-hydroxyvitamin D3 [Mass/volume] in Serum or Plasma VITAMIN D 25 HYDROXY Lab Routine Vitamin D deficiency Encounter for long-term current use of medication Expected: 03/19/2024 (Approximate), Expires: 06/18/2024 [facility] Work Phone: Comment on above: Expected: 03/19/2024 (Approximate), Expi res: 06/18/2024 Start: 03-19-2024 End: 06-18-2024 CBC panel - Blood by Automated count CBC Lab Routine Essential hypertension Encounter for long-term current use of medication Expected: 03/19/2024 (Approximate), Expires: 06/18/2024 [facility] Work Phone: Comment on above: Expected: 03/19/2024 (Approximate), Expi res: 06/18/2024 Start: 03-19-2024 End: 06-18-2024 Comprehensive metabolic 2000 panel - Serum or Plasma COMP METABOLIC PANEL Lab Routine Essential hypertension Vitamin D deficiency Hypokalemia Encounter for long-term current use of medication Expected: 03/19/2024 (Approximate), Expires: 06/18/2024 [facility] Work Phone: Comment on above: Expected: 03/19/2024 (Approximate), Expi res: 06/18/2024 Start: 03-19-2024 End: 06-18-2024 Lipid 1996 panel - Serum or Plasma LIPID PANEL BASIC Lab Routine Essential hypertension Hypertriglyceridemia Encounter for long-term current use of medication Expected: 03/19/2024 (Approximate), Expires: 06/18/2024 [facility] Work Phone: Comment on above: Expected: 03/19/2024 (Approximate), Expi res: 06/18/2024 Start: 03-19-2024 End: 06-18-2024 Magnesium [Mass/volume] in Serum or Plasma MAGNESIUM BLD Lab Routine Encounter for long-term current use of medication Expected: 03/19/2024 (Approximate), Expires: 06/18/2024 [facility] Work Phone: Comment on above: Expected: 03/19/2024 (Approximate), Expi res: 06/18/2024 Start: 03-12-2024 End: 03-12-2024 Patient encounter procedure 03/12/2024 9:40 AM EDT Office Visit [facility] [place] [address] [place], [place] [address] Adeel Hayes MD [address] [place], [place] [id number] 6 month follow-up [facility] [place] Comment on above: 6 month follow-up Start: 03-10-2024 ANNUAL PCP TEAM CHRONIC DISEASE VISIT ANNUAL PCP TEAM CHRONIC DISEASE VISIT [facility] Start: 03-10-2024 COVID-19 VACCINE (#1) COVID-19 VACCINE (#1) [facility] Comment on above: Postponed from 01/13/1946 (Declined at t his time) Start: 03-10-2024 Urine microalbumin profile [facility] Comment on above: Postponed from 09/27/2022 (Declined at t his time) Start: 03-01-2024 DIABETES SCREEN DIABETES SCREEN [facility] Start: 10-08-2023 Advance Directive Discussion Advance Directive Discussion [facility] Start: 10-04-2023 ANNUAL PCP TEAM CHRONIC DISEASE VISIT ANNUAL PCP TEAM CHRONIC DISEASE VISIT [facility] Start: 10-04-2023 BP CONTROLLED (<130/80) BP CONTROLLED (<130/80) [facility] Start: 09-18-2023 BP CONTROLLED (<130/80) BP CONTROLLED (<130/80) [facility] Start: 08-16-2023 ANNUAL PCP TEAM CHRONIC DISEASE VISIT ANNUAL PCP TEAM CHRONIC DISEASE VISIT [facility] Start: 08-16-2023 BP CONTROLLED (<130/80) BP CONTROLLED (<130/80) [facility] Start: 08-14-2023 ANNUAL PCP TEAM CHRONIC DISEASE VISIT ANNUAL PCP TEAM CHRONIC DISEASE VISIT [facility] Start: 08-14-2023 SHINGRIX VACCINE (2 of 3) SHINGRIX VACCINE (2 of 3) [facility] Comment on above: Postponed from 11/21/2012 (Declined at t his time) Start: 06-08-2023 Covid-19 Vaccine () Covid-19 Vaccine () [facility] Start: 06-08-2023 Influenza vaccination [facility] [facility] Start: 03-24-2023 ANNUAL PCP TEAM CHRONIC DISEASE VISIT ANNUAL PCP TEAM CHRONIC DISEASE VISIT [facility] Start: 03-24-2023 BP CONTROLLED (<130/80) BP CONTROLLED (<130/80) [facility] Start: 02-11-2023 End: 04-13-2023 25-hydroxyvitamin D3 [Mass/volume] in Serum or Plasma VITAMIN D 25 HYDROXY Lab Routine Vitamin D deficiency Expected: 02/11/2023 (Approximate), Expires: 04/13/2023 [facility] Work Phone: Comment on above: Expected: 02/11/2023 (Approximate), Expi res: 04/13/2023 Start: 02-11-2023 End: 04-13-2023 CBC panel - Blood by Automated count CBC Lab Routine Essential hypertension Encounter for long-term current use of medication Expected: 02/11/2023 (Approximate), Expires: 04/13/2023 [facility] Work Phone: Comment on above: Expected: 02/11/2023 (Approximate), Expi res: 04/13/2023 Start: 02-11-2023 End: 04-13-2023 Comprehensive metabolic 2000 panel - Serum or Plasma COMP METABOLIC PANEL Lab Routine Hypokalemia Essential hypertension Encounter for long-term current use of medication Expected: 02/11/2023 (Approximate), Expires: 04/13/2023 [facility] Work Phone: Comment on above: Expected: 02/11/2023 (Approximate), Expi res: 04/13/2023 Start: 02-11-2023 End: 04-13-2023 Lipid 1996 panel - Serum or Plasma LIPID PANEL BASIC Lab Routine Hypertriglyceridemia Expected: 02/11/2023 (Approximate), Expires: 04/13/2023 [facility] Work Phone: Comment on above: Expected: 02/11/2023 (Approximate), Expi res: 04/13/2023 Start: 02-11-2023 End: 04-13-2023 Magnesium [Mass/volume] in Serum or Plasma MAGNESIUM BLD Lab Routine Encounter for long-term current use of medication Expected: 02/11/2023 (Approximate), Expires: 04/13/2023 [facility] Work Phone: Comment on above: Expected: 02/11/2023 (Approximate), Expi res: 04/13/2023 Start: 10-08-2022 ADVANCE DIRECTIVE DISCUSSION ADVANCE DIRECTIVE DISCUSSION [facility] Start: 09-27-2022 Urine microalbumin profile [facility] Start: 08-17-2022 ANNUAL PCP TEAM CHRONIC DISEASE VISIT ANNUAL PCP TEAM CHRONIC DISEASE VISIT [facility] Start: 08-17-2022 BP CONTROLLED (<130/80) BP CONTROLLED (<130/80) [facility] Start: 08-17-2022 COVID-19 VACCINE (#1) COVID-19 VACCINE (#1) [facility] Comment on above: Postponed from 1950 (Declined at t his time) Postponed from 01/13 (Declined at this time) Start: 08-17-2022 COVID-19 VACCINE (1) COVID-19 VACCINE (1) [facility] Comment on above: Postponed from 1950 (Declined at t his time) Start: 06-08-2022 Influenza vaccination INFLUENZA (#1) [facility] Start: 04-29-2022 End: 06-29-2022 POTASSIUM BLD POTASSIUM BLD Lab Routine Hypokalemia Expected: 04/29/2022 (Approximate), Expires: 06/29/2022 [facility] Work Phone: Comment on above: Expected: 04/29/2022 (Approximate), Expi res: 06/29/2022 Start: 03-22-2022 SHINGRIX VACCINE (2 of 3) SHINGRIX VACCINE (2 of 3) [facility] Comment on above: Postponed from 11/21/2012 (Declined at t his time) Start: 01-06-2022 End: 03-08-2022 CBC panel - Blood by Automated count CBC Lab Routine Essential hypertension Expected: 01/06/2022 (Approximate), Expires: 03/08/2022 [facility] Work Phone: Comment on above: Expected: 01/06/2022 (Approximate), Expi res: 03/08/2022 Start: 01-06-2022 End: 03-08-2022 Comprehensive metabolic 2000 panel - Serum or Plasma COMP METABOLIC PANEL Lab Routine Hypertriglyceridemia Essential hypertension Expected: 01/06/2022 (Approximate), Expires: 03/08/2022 [facility] Work Phone: Comment on above: Expected: 01/06/2022 (Approximate), Expi res: 03/08/2022 Start: 01-06-2022 End: 03-08-2022 LIPID PANEL BASIC LIPID PANEL BASIC Lab Routin e Hypertriglyceridemia Expected: 01/06/2022 (Approximate), Expires: 03/08/2022 [facility] Work Phone: Comment on above: Expected: 01/06/2022 (Approximate), Expi res: 03/08/2022 Start: 01-06-2022 End: 03-08-2022 VITAMIN D 25 HYDROXY VITAMIN D 25 HYDROXY Lab Routine Vitamin D deficiency Expected: 01/06/2022 (Approximate), Expires: 03/08/2022 [facility] Work Phone: Comment on above: Expected: 01/06/2022 (Approximate), Expi res: 03/08/2022 Start: 10-08-2021 ADVANCE DIRECTIVE DISCUSSION ADVANCE DIRECTIVE DISCUSSION [facility] Start: 2021 RSV Vaccine (1 - 1-dose 75+ series) RSV Vaccine (1 - 1-dose 75+ series) [facility] Start: 08-20-2020 COLORECTAL CANCER SCREENING COLORECTAL CANCER SCREENING [facility] Start: 08-20-2020 FECAL OCCULT BLOOD FECAL OCCULT BLOOD [facility] Start: 08-20-2020 Screening for malignant neoplasm of colon Fecal Occult Blood [facility] Start: 11-21-2012 SHINGRIX VACCINE (2 of 3) SHINGRIX VACCINE (2 of 3) [facility] Start: 2011 BONE DENSITY BONE DENSITY [facility] Start: 2011 Bone Density Screening Bone Density Screening [facility] Start: 2011 Screening for osteoporosis Bone Density Screening [facility] Start: 2006 RSV Vaccine (1 - 1-dose 60+ series) RSV Vaccine (1 - 1-dose 60+ series) [facility] Start: 1991 COLOGUARD (FIT-DNA) COLOGUARD (FIT-DNA) [facility] Start: 1991 Colonoscopy COLONOSCOPY [facility] Start: [address] COLONOGRAPHY [facility] Start: 1991 SIGMOIDOSCOPY SIGMOIDOSCOPY [facility] Start: 1964 BP CONTROLLED (<130/80) BP CONTROLLED (<130/80) [facility] Start: 01-13-1946 COVID-19 VACCINE (#1) COVID-19 VACCINE (#1) [facility] End: 10-17-2024 BD DXA TRABECULAR BONE SCORE (TBS) BD DXA TRABECULAR BONE SCORE (TBS) Radiology Routine Asymptomatic postmenopausal status 1 Occurrences starting 09/18/2023 until 10/17/2024 [facility] Work Phone: Comment on above: 1 Occurrences starting 09/18/2023 until 10/17/2024 End: 12-29-2024 BD DXA TRABECULAR BONE SCORE (TBS) BD DXA TRABECULAR BONE SCORE (TBS) Radiology Routine Asymptomatic postmenopausal status 1 Occurrences starting 11/30/2023 until 12/29/2024 [facility] Work Phone: Comment on above: 1 Occurrences starting 11/30/2023 until 12/29/2024 End: 07-09-2026 BD DXA TRABECULAR BONE SCORE (TBS) BD DXA TRABECULAR BONE SCORE (TBS) Radiology Routine Asymptomatic menopause 1 Occurrences starting 06/09/2025 until 07/09/2026 [facility] Comment on above: 1 Occurrences starting 06/09/2025 until 07/09/2026 End: 09-13-2023 Dxa bone density study 1/> sites axial skel DXA-AXIAL SKELETON Radiology Routine Asymptomatic postmenopausal status 1 Occurrences starting 08/14/2022 until 09/13/2023 [facility] Work Phone: Comment on above: 1 Occurrences starting 08/14/2022 until 09/13/2023 End: 12-29-2024 DXA Skeletal system.axial Views for bone density DXA-AXIAL SKELETON Radiology Routine Asymptomatic postmenopausal status 1 Occurrences starting 11/30/2023 until 12/29/2024 [facility] Work Phone: Comment on above: 1 Occurrences starting 11/30/2023 until 12/29/2024 End: 07-09-2026 DXA Skeletal system.axial Views for bone density DXA-AXIAL SKELETON Radiology Routine Asymptomatic menopause 1 Occurrences starting 06/09/2025 until 07/09/2026 [facility] Work Phone: Comment on above: 1 Occurrences starting 06/09/2025 until 07/09/2026 End: 10-17-2024 DXA-AXIAL SKELETON DXA-AXIAL SKELETON Radiology Routine Asymptomatic postmenopausal status 1 Occurrences starting 09/18/2023 until 10/17/2024 [facility] Work Phone: Comment on above: 1 Occurrences starting 09/18/2023 until 10/17/2024 Hemoglobin.gastroint es tinal.lower [Presence] in Stool by Immunoassay FECAL OCCULT BLOOD TEST Lab Routine Colon cancer screening Ordered: 08/14/2022 [facility] Work Phone: Comment on above: Ordered: 08/14/2022 Hemoglobin.gastroint es tinal.lower [Presence] in Stool by Immunoassay FECAL OCCULT BLOOD TEST Lab Routine Screening for colon cancer Ordered: 03/10/2023 [facility] Work Phone: Comment on above: Ordered: 03/10/2023 Hemoglobin.gastroint es tinal.lower [Presence] in Stool by Immunoassay IMMUNOCHEMICAL FECAL OCCULT BLOOD TEST Lab Routine Screening for colon cancer Ordered: 03/12/2024 [facility] Work Phone: Comment on above: Ordered: 03/12/2024 [facility] Immunizations Immunization Date Immunization Notes Care Provider [facility] 07-09-2024 influenza, high dose seasonal, preservative-free Adeel Hayes MD Work Phone: [facility] 07-09-2024 influenza virus vacc ine, unspecified formulation Adeel Hayes MD Work Phone: [facility] 09-18-2023 influenza (HD-IIV4) vaccine, age 65+ yr, high dose, quadrivalent, PF (FLUZONE HIGH-DOSE) Adeel Hayes MD Work Phone: [facility] 09-18-2023 influenza virus vacc ine, unspecified formulation Victoria Gabi Work Phone: [facility] 08-14-2022 influenza, high-dose , quadrivalent vaccine (FLUZONE HIGH DOSE QUADRIVALENT) Adeel Hayes MD Work Phone: [facility] 08-14-2022 influenza virus vacc ine, unspecified formulation Adeel Hayes MD Work Phone: [facility] 08-17-2021 influenza, high-dose , quadrivalent vaccine (FLUZONE HIGH DOSE QUADRIVALENT) Adeel Hayes MD Work Phone: [facility] 08-24-2020 Influenza virus vaccine [facility] 08-24-2020 influenza, seasonal, injectable, preservative free Adeel Hayes MD Work Phone: [facility] 08-18-2020 influenza, high-dose , quadrivalent vaccine (FLUZONE HIGH DOSE QUADRIVALENT) Adeel Hayes MD Work Phone: [facility] 07-25-2019 influenza, high dose seasonal, preservative-free Adeel Hayes MD Work Phone: [facility] 08-12-2018 influenza, high dose seasonal, preservative-free Adeel Hayes MD Work Phone: [facility] 07-28-2017 influenza, high dose seasonal, preservative-free Adeel Hayes MD Work Phone: [facility] 01-23-2017 pneumococcal conjuga te vaccine, 13 valent Adeel Hayes MD Work Phone: [facility] 08-01-2016 influenza, high dose seasonal, preservative-free Adeel Hayes MD Work Phone: [facility] 07-06-2014 influenza, seasonal, injectable Adeel Hayes MD Work Phone: [facility] 07-23-2013 influenza virus vacc ine, unspecified formulation Adeel Hayes MD Work Phone: [facility] 09-27-2012 tetanus toxoid, redu elvira diphtheria toxoid, and acellular pertussis vaccine, adsorbed Adeel Hayes MD Work Phone: [facility] 09-26-2012 tetanus and diphther ia toxoids, adsorbed, preservative free, for adult use (2 Lf of tetanus toxoid and 2 Lf of diphtheria toxoid) Adeel Hayes MD Work Phone: [facility] 09-26-2012 zoster vaccine, live Adeel ralph MD Work Phone: [facility] 09-06-2012 influenza virus vacc ine, unspecified formulation Adeel Hayes MD Work Phone: [facility] 09-13-2011 pneumococcal polysaccharide vaccine, 23 valent Adeel Hayes MD Work Phone: [facility] 07-22-2009 influenza virus vacc ine, unspecified formulation Adeel Hayes MD Work Phone: [facility] 08-07-2006 influenza virus vacc ine, unspecified formulation Adeel Hayes MD Work Phone: [facility] Payers Date Payer Category Payer Self-pay [id number] 2024 Unknown [id number] 2022 Medicare (Managed Care) [id number] 2022 Unknown [id number] 2022 Unknown [id number] 2021 Medicare HUMANA MEDICARE HUMANA MEDICARE PPO [id number] 2021-[facility] [phone] [facility] [id number] [place] [address] PPO [id number] 2021 Medicare [id number] Medicare [id number] Medicare [id number] Unknown [id number] Unknown [id number] Unknown [id number] Unknown [id number] Social History Date Type Detail Facility Start: 02-04-2018 End: 09-18-2022 Tobacco smoking status NHIS Never smoked tobacco [facility] Start: 08-17-2021 End: 04-15-2025 Alcohol intake Current non-drinker of alcohol (finding) [facility] Start: 1945 Sex Assigned At Not on file [facility] Start: 01-08-2022 End: 08-14-2022 Exposure to SARS-CoV-2 (event) Not sure [facility] Work Phone: Start: 02-04-2018 End: 09-18-2022 Tobacco use and exposure Smokeless tobacco non-user [facility] Start: 1945 Sex Assigned At Female [facility] Start: 05-26-2021 Tobacco smoking stat us DCIS Unknown if ever smoked [facility] Start: 09-10-2020 Non-smoker [facility] Start: 05-21-2023 End: 02-10-2025 History of Social function [facility] Start: 05-21-2023 End: 02-10-2025 Tobacco use panel [facility] Start: 09-08-2012 Adult Depression Screening Assessment 0 [facility] How often to you hav e a drink containing alcohol? Never [facility] Start: 06-09-2025 Alcoholic beverage intake Lifetime non-drinker (finding) [facility] Medical Equipment Procedure Code Equipment Code [...] 11-24-2020 Functional Status Date Assessment Result Facility 06-09-2025 Total score [AUDIT-C] 0 06/09/20 25 1:13 PM EDT Malu Townsend, ALLA.[facility] 05-12-2015 Are you deaf, or do you have serious difficulty hearing No 05/12/2015 9:42 AM EDT Bella Zelaya LPN No [facility] 05-12-2015 Are you blind, or do you have serious difficulty seeing, even when wearing glasses No 05/12/2015 9:42 AM EDT Bella Zelaya LPN No [facility] 05-12-2015 Do you have serious difficulty walking or climbing stairs No 05/12/2015 9:42 AM EDT Bella Zelaya LPN No [facility] 05-12-2015 Do you have difficul ty dressing or bathing No 05/12/2015 9:42 AM EDT Bella Zelaya LPN No [facility] 05-12-2015 Because of a physica l, mental, or emotional condition, do you have difficulty doing errands alone such as visiting a physician's office or shopping No 05/12/2015 9:42 AM EDT Bella Zelaya LPN No [facility] Mental Status Date Assessment Result Facility 05-12-2015 Because of a physica l, mental, or emotional condition, do you have serious difficulty concentrating, remembering, or making decisions No 05/12/2015 9:42 AM EDT Bella Zelaya LPN No [facility] Clinical Notes 12-31-2021 to 06-19-2025 Telephone Encounter - Ariana Hernandez LPN - 06/19/2025 2:59 PM EDTTelephone Encounter - Ariana Hernandez LPN - 06/19/2025 2:59 PM EDTPatient Victoria Suggs - 02/10/2025 1:31 PM EDT Note Date & Type Note Facility 06-19-2025 Telephone encounter Note rx was already for powder sent 06/16/2025 [facility] 06-19-2025 Miscellaneous Notes rx was already for powder sent 06/16/2025 Patient requesting to change her nystatin cream to a powder form. Please send script to her pharmacy. Pended for review. Please call Dodie with an update. Thank you. documented in this encounter [facility] 06-16-2025 Telephone encounter Note Patient requesting to change her nystatin cream to a powder form. Please send script to her pharmacy. Pended for review. Please call Dodie with an update. Thank you. [facility] 06-12-2025 Telephone encounter Note Patient notified of results and provider's instructions. Patient verbalizes understanding. Leila Verduzco LPN [facility] 06-12-2025 Miscellaneous Notes Patient notified of results and provider's instructions. Patient verbalizes understanding. Leila Verduzco LPN Please let the patient know her lab results were all within an acceptable range. Fatigue and other symptoms likely due to low blood pressure as discussed during the office visit Malu Townsend APRN.SOCIAL SCIENCES RESEARCH SCIENTIST documented in this encounter [facility] 06-12-2025 Telephone encounter Note Please let the patient know her lab results were all within an acceptable range. Fatigue and other symptoms likely due to low blood pressure as discussed during the office visit Malu Townsend APRN.SOCIAL SCIENCES RESEARCH SCIENTIST [facility] 06-09-2025 Instructions Malu Townsend APRN.SOCIAL SCIENCES RESEARCH SCIENTIST - 06/09/2025 1:13 PM EDT - Decrease [...] review all the medicines you take, even daek-vra-etelpdv medicines. As you get older, the way [...] certain medical conditions. documented in this encounter [facility] 06-09-2025 Note HNO ID: [id number] Author: MALU TOWNSEND APRN.CNP Service: ? Author [...] MD as PCP - General Destini Lee APRN.SOCIAL SCIENCES RESEARCH SCIENTIST as Skip Loader (Internal Medicine) Enriqueta Otto APRN.CHHA as Skip Loader (Internal Medicine) Dr. Lal (Retinal specialist), Dr. Denny Briseno (business reporter) Medical/Family history review Reviewed and updated problem [...] 74 Resp 16 Ht 149.2 cm (4' 10.75") Wt 83.2 kg (183 lb 6.8 oz) [...] her forgetfulness to stress regarding power of environmental attorney changes and to aging. She denies [...] 74 Resp 16 Ht 149.2 cm (4' 10.75") Wt 83.2 kg (183 lb 6.8 oz) [...] to atenolol 12.5 (more content not included)... [facility] 06-09-2025 History of Present illness Narrative Images [...] MD as PCP - General Destini Lee APRN.SOCIAL SCIENCES RESEARCH SCIENTIST as Skip Loader (Internal Medicine) Enriqueta Otto APRN.CHHA as Skip Loader (Internal Medicine) Dr. Lal (Retinal specialist), Dr. Denny Briseno (business reporter) Medical/Family history review Reviewed and updated problem [...] 74 Resp 16 Ht 149.2 cm (4' 10.75") Wt 83.2 kg (183 lb 6.8 oz) [...] her forgetfulness to stress regarding power of environmental attorney changes and to aging. She denies [...] 74 Resp 16 Ht 149.2 cm (4' 10.75") Wt 83.2 kg (183 lb 6.8 oz) [...] Patient agreeable to treatment plan. Malu Townsend APRN.SOCIAL SCIENCES RESEARCH SCIENTIST documented in this encounter [facility] 04-30-2025 Telephone encounter Note Pt called and is notified of providers mesage and instructions. Pt voices understanding. Deidra Flores RN [facility] 04-30-2025 Miscellaneous Notes Pt called and [...] Carla Almonte RN documented in this encounter [facility] 04-30-2025 Telephone encounter Note Noted. Agree with continuing meds as is as noted below since doing better. Follow up as needed [facility] 04-30-2025 Telephone encounter Note Patient calls [...] the day. Patient agrees. Daniela Gordon RN [facility] 04-27-2025 Telephone encounter Note Patient was started back on sertraline. Patient states that she has been sleeping ok. Patient states that she is not feeling as sleepy in the afternoon now. Patient states that since atenolol was decreased to 25 mg she has not felt as loopy. Please review and advise, Carla Almonte RN [facility] 04-25-2025 Telephone encounter Note Seroquel? Patient was on sertraline before for depression, not seroquel. Clarify meant sertraline. Is she sleeping okay at night? [facility] 04-23-2025 Telephone encounter Note Patient calls and states that in the afternoon patient still feels sleepy and she has a hard time staying. Patient wanting to know what else can be done? Patient's atenolol was decreased to 25 mg at appointment on 04/15/2025 and patient was restarted on Seroquel due to depressive mood. Please review and advise, Carla Almonte RN [facility] 04-15-2025 Note HNO ID: [id number] Author: DESTINI LEE APRN.SOCIAL SCIENCES RESEARCH SCIENTIST Service: ? Author Type: Nurse Practitioner Type: Progress Notes Filed: 04/15/2025 15:58 Note Text: SUBJECTIVE Dodie Li is a 79 year old female here today for a check up on her medical problems. Chief Complaint Patient presents with: Blood Pressure Dizziness HPI Dodie Li is a 79-year-old female, residing in a detention, presenting with concerns about low blood pressure readings, dizziness, and visual disturbances. Dodie reports experiencing visual disturbances described as "floaters" and a "fine mist" that appear intermittently and then resolve. 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 She also reports concerns about low blood pressure readings, with recent measurements at her detention being 115/59 mmHg and 102/70 mmHg. She is currently taking atenolol 50 mg in the morning. She notes that her symptoms of dizziness and feeling "loopy" begin in the mid-afternoon and improve by the evening. She also reports difficulty focusing her eyes and increased fatigue, stating, "I could fall asleep right now, I'll tell you the truth." She attributes these symptoms to her medication regimen and expresses concern about the timing of her medication administration. Dodie has a history of falls, having fallen three times since residing in the detention. She also has a history of a hip replacement and expresses concern about the potential consequences of another fall. She was previously taking sertraline for adjustment issues related to living in a detention but has since discontinued it. She reports feeling less focused and having difficulty expressing herself since stopping the medication. Dodie also mentions that her chlorthalidone was discontinued by Dr. Hayes in July due to complaints of dizziness and nocturia. She expresses concern about the potential for falls due to frequent nighttime urination and slippery floors in the detention. Her medications were reviewed today and her [...] ALLERGIES Allergen Reactions Simvastatin Other: See Comments "Flu like sx", body aches Amoxicillin Rash Asa [Salicylates] if [...] Lower Leg - (more content not included)... [facility] 04-15-2025 History of Present illness Narrative SUBJECTIVE Dodie Li is a 79 year old female here today for a check up on her medical problems. Chief Complaint Patient presents with: Blood Pressure Dizziness HPI Dodie Li is a 79-year-old female, residing in a detention, presenting with concerns about low blood pressure readings, dizziness, and visual disturbances. Dodie reports experiencing visual disturbances described as "floaters" and a "fine mist" that appear intermittently and then resolve. 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 She also reports concerns about low blood pressure readings, with recent measurements at her detention being 115/59 mmHg and 102/70 mmHg. She is currently taking atenolol 50 mg in the morning. She notes that her symptoms of dizziness and feeling "loopy" begin in the mid-afternoon and improve by the evening. She also reports difficulty focusing her eyes and increased fatigue, stating, "I could fall asleep right now, I'll tell you the truth." She attributes these symptoms to her medication regimen and expresses concern about the timing of her medication administration. Dodie has a history of falls, having fallen three times since residing in the detention. She also has a history of a hip replacement and expresses concern about the potential consequences of another fall. She was previously taking sertraline for adjustment issues related to living in a detention but has since discontinued it. She reports feeling less focused and having difficulty expressing herself since stopping the medication. Dodie also mentions that her chlorthalidone was discontinued by Dr. Hayes in July due to complaints of dizziness and nocturia. She expresses concern about the potential for falls due to frequent nighttime urination and slippery floors in the detention. Her medications were reviewed today and her [...] ALLERGIES Allergen Reactions Simvastatin Other: See Comments "Flu like sx", body aches Amoxicillin Rash Asa [Salicylates] if [...] OBJECTIVE BP 102/70 Pulse 70 Ht 4' 10.47" (1.49m) Wt 181 lb 7 oz (82.3kg) [...] eyes, with intermittent visual disturbances described as "rain mist" floaters. 3. 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 Previously on sertraline 25 mg daily, which provided some relief. - Resume sertraline 25 mg daily. - Transmit new prescription for sertraline to detention staff. Portions of this note have been [...] appointment.. MARQUIS Arredondo documented in this encounter [facility] 04-15-2025 Telephone encounter Note noted [facility] 04-15-2025 Miscellaneous Notes noted Patient calls back and now is scheduled to see Destini talavera at 3:40. Carla Almonte, RN Patient calls back and schedules appointment [...] blood pressure medications could be causing this. [facility] staff give patient her morning blood medications. Patient asking if provider thinks it would be beneficial if she took her BP mediations at night? Patients states that BP a little while ago was 115/58. Patient reports that blood pressure is not taken prior to her taking medications in the morning. Please review and advise, Carla Almonte RN documented in this encounter [facility] 04-15-2025 Telephone encounter Note Patient calls back and now is scheduled to see Destini today at 3:40. Carla Almonte RN [facility] 04-15-2025 Telephone encounter Note Patient calls back and schedules appointment with Destini on Sunday04/17/2025 2:20. Carla Almonte RN [facility] 04-15-2025 Telephone encounter Note Pt called in [...] able to get in. Deidra Flores RN [facility] 04-14-2025 Telephone encounter Note Patient calls and states that she feels groggy a couple hours after taking medication at 9 am. Patient is wondering if blood pressure medications could be causing this. [facility] staff give patient her morning blood medications. Patient asking if provider thinks it would be beneficial if she took her BP mediations at night? Patients states that BP a little while ago was 115/58. Patient reports that blood pressure is not taken prior to her taking medications in the morning. Please review and advise, Carla Almonte RN [facility] 04-08-2025 Telephone encounter Note Patient calls back and message below reviewed with verbalized understanding. Patient reports that she has already tried PT for the symptoms so if anything will want consult to neurology. Reports she will monitor symptoms and call back if desires consult. Daniela Gordon RN [facility] 04-08-2025 Miscellaneous Notes Patient calls back [...] telephone encounter from 03/30/2025 where Vale from [facility] was asking about discontinuing medication and had faxed over orders to do that. Please review and advise, Carla Almonte RN documented in this encounter [facility] 04-07-2025 Telephone encounter Note I sent order to d/c the sertraline in case it was causing or contributing to the falls. See how she does off the med. If ongoing issues with falls, consider evaluation with PT and/or neurology [facility] 04-07-2025 Telephone encounter Note Patient calls to check on status of request of message below. Reports [facility] staff received a fax that she should discontinue sertraline. Recommended patient follow the directions that patient received from [facility] staff since fax would have been from provider. Daniela Gordon RN [facility] 04-07-2025 Telephone encounter Note Patient calls [...] telephone encounter from 03/30/2025 where Vale from [facility] was asking about discontinuing medication and had faxed over orders to do that. Please review and advise, Carla Almonte RN [facility] 03-30-2025 Telephone encounter Note Vale from [facility] calls and states that they had received fax order to decrease sertraline. Family is asking for medication to be discontinued completely. Vale is faxing orders again to have medication discontinued. Please review and advise, Carla Almonte RN [facility] 03-30-2025 Miscellaneous Notes Vale from [facility] calls and states that they had received fax order to decrease sertraline. Family is asking for medication to be discontinued completely. Vale is faxing orders again to have medication discontinued. Please review and advise, Carla Almonte RN documented in this encounter [facility] 02-10-2025 Note HNO ID: [id number] Author: VICTORIA ASHLEY, ? Service: ? Author [...] RTC in 4-5 months Victoria Ashley DPM [facility] 02-10-2025 History of Present illness Narrative Subjective: [...] care. ASHLEY 09/09/24 documented in this encounter [facility] 02-10-2025 Note HNO ID: [id number] Author: DEIDRA CURRY RN Service: ? Author Type: Registered Nurse Type: Progress Notes Filed: 02/10/2025 13:41 Note Text: Patient presents with: Left Foot - Established Patient, Follow Up, nail care Right Foot - Established Patient, Follow Up, nail care Patient presents for 5 month follow up nail care. ASHLEY 09/09/24 [facility] 01-27-2025 Telephone encounter Note Completed and faxed back 01/27/25 [facility] 01-27-2025 Miscellaneous Notes Completed and faxed back 01/27/25 Reviewed and signed Office received faxed from [facility] regarding patient on 01/23/25. Neuro checks completed and to follow for review. Please review fax and complete. Once complete fax back to [facility] at [phone]. Office received fax regarding patient on 01/20/25 with update regarding fall. Please review fax and note. Once complete fax back to [facility] at [phone] Routed to PCP. Vickie Mckeon MA documented in this encounter [facility] 01-26-2025 Telephone encounter Note Reviewed and signed [facility] 01-26-2025 Telephone encounter Note Office received faxed from [facility] regarding patient on 01/23/25. Neuro checks completed and to follow for review. Please review fax and complete. Once complete fax back to [facility] at [phone]. Office received fax regarding patient on 01/20/25 with update regarding fall. Please review fax and note. Once complete fax back to [facility] at [phone] Routed to PCP. Vickie Mckeon MA [facility] 12-23-2024 Telephone encounter Note Noted. Okay [facility] 12-23-2024 Miscellaneous Notes Noted. Reba Angie from [employer] calling to report patient had fall on 12/17/2024, no injury. She is bruised on her buttocks, and right ear. Patient not sure if she tried to get up with having her pants pulled up all the way. Needed help to return to her feet. Patient is d/c from OT today is doing transfers with no issues. documented in this encounter [facility] 12-23-2024 Telephone encounter Note Angie from [facility] calling to report patient had fall on 12/17/2024, no injury. She is bruised on her buttocks, and right ear. Patient not sure if she tried to get up with having her pants pulled up all the way. Needed help to return to her feet. Patient is d/c from OT today is doing transfers with no issues. [facility] 12-16-2024 Telephone encounter Note Home care Certification Form 485 received from [facility]. For cert dates 11/23/24-01/21/25 that were signed on 12/08/24. New Certification Patient's home health 485 form / care plan for stated certification period reviewed and signed. Relevant medical records were reviewed. No changes were indicated [facility] 12-16-2024 Miscellaneous Notes Home care Certification Form 485 received from [facility]. For cert dates 11/23/24-01/21/25 that were signed on 12/08/24. New Certification Patient's home health 485 form / care plan for stated certification period reviewed and signed. Relevant medical records were reviewed. No changes were indicated documented in this encounter [facility] 11-26-2024 Telephone encounter Note Below response left on secure identified stephanieAminah Ameena Truong LPN [facility] 11-26-2024 Miscellaneous Notes Below response left on secure identified vm. Ameena Truong LPN OK for all [facility]. Florence with [facility] HH PT is calling with POC. Florence [...] Winifred Calixto LPN documented in this encounter [facility] 11-25-2024 Telephone encounter Note OK for all [facility]. [facility] 11-25-2024 Telephone encounter Note Florence with [...] and agreement with POC. Winifred Calixto LPN [facility] 11-18-2024 Telephone encounter Note Pt calls requesting a copy of DNR be mailed to her. Per Niki Anne RN it is ok to send. DNR mailed as requested. Winifred Calixto LPN [facility] 11-18-2024 Miscellaneous Notes Pt calls requesting a copy of DNR be mailed to her. Per Niki Anne RN it is ok to send. DNR mailed as requested. Winifred Calixto LPN documented in this encounter [facility] 11-14-2024 Telephone encounter Note Mami aware and states patient will be discharged but unsure if home or assisted living. States they are looking into this and will call office back with any new information or orders if needed. [facility] 11-14-2024 Miscellaneous Notes Mami aware and [...] depression and anxiety. Pt went home from [facility] on 11-06-24. Please advise Mami with verbal order. Okay to leave a detailed message. Karin Osorio LPN documented in this encounter [facility] 11-14-2024 Telephone encounter Note Will follow, but I thought patient was still at assisted living since got fax from nurse there about a prescription clarification. Check with [facility] and/or patient [facility] 11-13-2024 Telephone encounter Note Mami with [facility] calling to see if you will follow pt for PT and OT 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 Pt went home from [facility] on 11-06-24. Please advise Mami with verbal order. Okay to leave a detailed message. Karin Osorio LPN [facility] 11-04-2024 Telephone encounter Note Order for PT at [email or web address] was faxed to [facility]. [facility] 11-04-2024 Miscellaneous Notes Order for PT at [facility] was faxed to [facility]. Spoke with patient and advised that both PT for leg strength and hand can be faxed to [facility]. Patient advised that [facility] staff told her that they do not [...] Fax order Patient reports she is at [facility], Assisted Living, and would like an order for Physical Therapy there, to help strengthen her legs. She reports she uses a walker. Asking if PCP would place order. Pended. Please call patient with reply, and call [facility], assisted living nurse, with PT order update as well. [phone]. Meredith Varela RN documented in this encounter [facility] 11-03-2024 Telephone encounter Note Fax rec'd from [facility]. Last saw pcp 07/09/24. [facility] 11-03-2024 Miscellaneous Notes Fax rec'd from [facility] asking [facility] refill to [facility]. Last saw pcp 07/09/24. documented in this encounter [facility] 10-31-2024 Telephone encounter Note Spoke with patient and advised that both PT for leg strength and hand can be faxed to [facility]. Patient advised that [facility] staff told her that they do not [...] and 10/31/24 to the appropriate care facility. [facility] 10-30-2024 Telephone encounter Note Filed differently as outside [facility] order but should work as well [facility] 10-30-2024 Telephone encounter Note TC to [...] call back with providers message. GLORIA Swanson [facility] 10-29-2024 Telephone encounter Note Fax order [facility] 10-29-2024 Telephone encounter Note Patient reports she is at [facility], [facility]isted [facility], and would like an order for Physical Therapy there, to help strengthen her legs. She reports she uses a walker. Asking if PCP would place order. Pended. Please call patient with reply, and call [facility], assisted living nurse, with PT order update as well. [phone]. Meredith Varela RN [facility] 10-05-2024 Telephone encounter Note The following approved medication requests have been transmitted electronically. Requested Prescriptions Signed Prescriptions Disp Refills ALPRAZolam (XANAX) 0.25 mg tablet 14 tablet 0 Sig: Take 1 tablet by mouth once daily as needed for anxiety for up to 30 days. Authorizing Provider: ADEEL HAYES MD [facility] 10-05-2024 Miscellaneous Notes The following approved medication requests have been transmitted electronically. Requested Prescriptions Signed Prescriptions Disp Refills ALPRAZolam (XANAX) 0.25 mg tablet 14 tablet 0 Sig: Take 1 tablet by mouth once daily as needed for anxiety for up to 30 days. Authorizing Provider: ADEEL HAYES MD Spoke with nurse at [place]. Order for medication needs to be sent to [facility]. Copy of this encounter has been faxed to [place] at [phone] Noted last RX from 57 for 0.25mg pill Not sure where to send RX Since does not take often, i wrote for 1 pill once daily as needed for 14 pills; needs to have a time frame with Epic RX orders, so wrote for 30 days, but may keep the RX on hand at [facility] to keep on hand to use as needed for occasional episode of anxiety. Pt checking on her request for xanax Rx. See message below. Patient calls to ask if provider would send a small supply of xanax to [facility]. Patient reports in the past she has taken it rarely on an as needed basis and feels it would help her anxiety if she could have a small amount on hand at the facility. Patient reports if provider is agreeable to send to the nursing department at [facility]. Daniela Gordon, MARGOT documented in this encounter [facility] 10-04-2024 Telephone encounter Note Spoke with nurse at [place]. Order for medication needs to be sent to [facility]. Copy of this encounter has been faxed to [place] at [phone] [facility] 10-04-2024 Telephone encounter Note Noted last RX from 02/11 for 0.25mg pill Not sure where to send RX Since does not take often, i wrote for 1 pill once daily as needed for 14 pills; needs to have a time frame with Epic RX orders, so wrote for 30 days, but may keep the RX on hand at [facility] to keep on hand to use as needed for occasional episode of anxiety. [facility] 10-03-2024 Telephone encounter Note Pt checking on her request for xanax Rx. See message below. [facility] 09-25-2024 Telephone encounter Note Patient calls to ask if provider would send a small supply of xanax to [facility]. Patient reports in the past she has taken it rarely on an as needed basis and feels it would help her anxiety if she could have a small amount on hand at the facility. Patient reports if provider is agreeable to send to the nursing department at [facility]. Daniela Godron RN [facility] 09-22-2024 Telephone encounter Note Gricelda nurse from [facility] called and is notified of providers message and instructions. She voices understanding and states they received the fax this morning. Deidra Flores RN [facility] 09-22-2024 Miscellaneous Notes Gricelda nurse from [facility] called and is notified of providers message [...] ADEEL HAYES MD Colette Whitten LPN from [facility] calls and states that patient has been on medication since being admitted to their facility on 08/04/2024. Medication was listed on patient's history and physical and other paperwork that was faxed over to [facility]. [facility] has not noticed any adverse effects while patient has been on medication. Patient has not be groggy. Colette would like for patient to continue medication since she has been taking this medication. Please review and advise, Carla Almonte RN Called and left a detailed voicemail notifying [facility] nurse [facility] of providers message. Clinic phone number [...] per Medication Dispense History. Fax rec'd from [facility] asking for [facility] for sertraline 25mg one tablet daily #90 with 3 refills. Please review. This medicine is not on pts med list. Last seen in office with pcp 07/09/24. documented in this encounter [facility] 09-22-2024 Telephone encounter Note Noted The following approved medication requests have been transmitted electronically. Requested Prescriptions Signed Prescriptions Disp Refills sertraline (ZOLOFT) 25 mg tablet 90 tablet 3 Sig: Take 1 tablet by mouth once daily. Authorizing Provider: ADEEL HAYES MD [facility] 09-22-2024 Telephone encounter Note Colette Whitten LPN from [facility] calls and states that patient has been on medication since being admitted to their facility on 08/04/2024. Medication was listed on patient's history and physical and other paperwork that was faxed over to [facility]. [facility] has not noticed any adverse effects while patient has been on medication. Patient has not be groggy. Colette would like for patient to continue medication since she has been taking this medication. Please review and advise, Carla Almonte RN [facility] 09-18-2024 Telephone encounter Note Called and left a detailed voicemail notifying [facility] nurse [facility] of providers message. Clinic phone number was left for the nurse to call back and answer providers questions. Called Pt and no answer. Pt did not have voicemail set up. Will need to call back. Deidra Flores, MARGOT [facility] 09-18-2024 Telephone encounter Note Verify with patient if she wants to take this med. Our medlist states that she either did not start the med or she stopped taking it due to thinking the med made her feel groggy. Looks like last time was filled was 06/23/24 per Medication Dispense History. [facility] 09-16-2024 Telephone encounter Note Fax rec'd from [facility] asking for [facility] for sertraline 25mg one tablet daily #90 with 3 refills. Please review. This medicine is not on pts med list. Last seen in office with pcp 07/09/24. [facility] 09-16-2024 Telephone encounter Note Pt called in asking if Dr Hayes takes [facility]. I told her I didn't know, but I could send a message through to Dr Hayes's office. I also told her she could call her insurance company and they should have a list of providers they cover. [facility] 09-16-2024 Miscellaneous Notes Pt called in asking if Dr Hayes takes [facility]. I told her I didn't know, but I could send a message through to Dr Hayes's office. I also told her she could call her insurance company and they should have a list of providers they cover. documented in this encounter [facility] 09-09-2024 Note HNO ID: [id number] Author: VICTORIA ASHLEY, ? Service: ? Author [...] Objective: Patient presents to clinic ambulating [facility] DP and PT pulses are palpable [...] follow-up in 5 months Victoria Ashley DPM [facility] 09-09-2024 History of Present illness Narrative Subjective: [...] Victoria Ashley DPM documented in this encounter [facility] 08-15-2024 Telephone encounter Note Noted. Adeel Hayes MD [facility] 08-15-2024 Miscellaneous Notes Noted. Adeel Hayes [...] will not cover Dr. Hayes. Spoke with [facility] nurse, Corina, and asked about the [...] Noted RE; request to be seen at [facility] (instead of coming to office). Will try to notify ahead of time. Verify if there are days of the week that she is usually not available. 2) Wonder if the wait for those things was due to not having all her admission orders right away when was admitted. In any case, can give order to [facility] that she may have band aids, polysporin, TUMS and PrepH in her room to use as needed per package directions. Clarify dose of Tylenol that she has that wants to dose self as needed and with [facility] if okay with order to self dispense Tylenol with an order as requested. Patient returns call and message reviewed. Patient requests that provider come to [facility] to visit and let her know [...] I wrote an order on fax from [facility] earlier today to change Miralax to once daily prn 1) Can follow with patient at [facility] and round there as her PCP. She can still come to the office if she prefers. I think I completed forms for [facility] admission. 2) Okay to change Miralax to as needed. Can give verbal order to [facility] so they can send formal order for me to sign unless they need a printed order. 1)Patient calling recently moved to assisted living at [facility]. She is asking if Dr Hayes makes [...] there. Please advise documented in this encounter [facility] 08-15-2024 Telephone encounter Note Spoke with [...] will not cover Dr. Hayes. Spoke with [facility] nurse, Corina, and asked about the [...] let pcp know what she finds out. [facility] 08-13-2024 Telephone encounter Note 1) Noted RE; request to be seen at [facility] (instead of coming to office). Will try to notify ahead of time. Verify if there are days of the week that she is usually not available. 2) Wonder if the wait for those things was due to not having all her admission orders right away when was admitted. In any case, can give order to [facility] that she may have band aids, polysporin, TUMS and PrepH in her room to use as needed per package directions. Clarify dose of Tylenol that she has that wants to dose self as needed and with [facility] if okay with order to self dispense Tylenol with an order as requested. [facility] 08-13-2024 Telephone encounter Note Patient returns call and message reviewed. Patient requests that provider come to [facility] to visit and let her know ahead of time so she is available. Patient also asking for orders to be able to manage OTC treatments such as band aids, polysporin, Tums, preparation H, and tylenol specifically as it frustrating to have to wait for 2-3 days on nursing staff to provide. Daniela Gordon, RN [facility] 08-13-2024 Telephone encounter Note Left a message for pt to call the office and ask to speak to a nurse. Karin Osorio LPN [facility] 08-13-2024 Telephone encounter Note Phoned patient and call was hung up on. Try again later. [facility] 08-12-2024 Telephone encounter Note I wrote an order on fax from [facility] earlier today to change Miralax to once daily prn [facility] 08-12-2024 Telephone encounter Note 1) Can follow with patient at [facility] and round there as her PCP. She can still come to the office if she prefers. I think I completed forms for [facility] admission. 2) Okay to change Miralax to as needed. Can give verbal order to [facility] so they can send formal order for me to sign unless they need a printed order. [facility] 08-11-2024 Telephone encounter Note 1)Patient calling recently moved to assisted living at [facility]. She is asking if Dr Hayes makes [...] to notify the nurses there. Please advise [facility] 07-30-2024 Telephone encounter Note Attempted to contact Marva. Message was left asking her to return the call. Records that are currently available have been faxed to number listed below. [facility] 07-30-2024 Miscellaneous Notes Attempted to contact [...] check with them. Thanks. Kellie calling from [facility], she is requesting an order for admission to assisted living. Also asking when order is ready, to also fax face sheet, med list, H&P & ASHLEY to [phone]. Janet Frias LPN documented in this encounter [facility] 07-30-2024 Telephone encounter Note Please return [...] H&P then. Please check with them. Thanks. [facility] 07-30-2024 Telephone encounter Note Kellie calling from [facility], she is requesting an order for admission to assisted living. Also asking when order is ready, to also fax face sheet, med list, H&P & ASHLEY to [phone]. Janet Frias LPN [facility] 07-28-2024 Telephone encounter Note Noted, she is scheduled for an office visit next week, plan to discuss with the visit. [facility] 07-28-2024 Miscellaneous Notes Noted, she is [...] in the evening. documented in this encounter [facility] 07-23-2024 Telephone encounter Note Patient calling [...] and cut down fluids in the evening. [facility] 07-22-2024 Telephone encounter Note Noted, she has an appointment coming up on 08/04 so we can discuss the medication then and make changes if appropriate. [facility] 07-22-2024 Miscellaneous Notes Noted, she has [...] being the cause. documented in this encounter [facility] 07-21-2024 Telephone encounter Note Sw spoke with patient regarding home care resources. Patient noted"I am having a visitor soon and can't speak for too long." Sw asked about calling another time. Patient noted " no, now is fine." Patient stated" I have not checked with home care agencies. I will try and make calls when I am ready for home care assistance." Sw asked patient if she had any further needs. Patient stated " no, not right now." Patient is aware that she may call Sw at any time for further assistance. [facility] 07-21-2024 Miscellaneous Notes Sw spoke with patient regarding home care resources. Patient noted"I am having a visitor soon and can't speak for too long." Sw asked about calling another time. Patient noted " no, now is fine." Patient stated" I have not checked with home care agencies. I will try and make calls when I am ready for home care assistance." Sw asked patient if she had any further needs. Patient stated " no, not right now." Patient is aware that she may call [...] $30 an hour. Sw and patient discussed [facility], [facility] and Sw provide that phone number to patient. Sw also provided patient with [facility] as an option for rehab services aide option. Sw provided patient with [facility] phone number to reach out to [place] office to check on [place] rates. Patient reports that she will call both [facility] and [facility] and obtain [place]rid quotes. Sw and patient discussed [facility] Agency on Aging and Passport program. Sw noted that Passport is a Medicaid eligible program through [facility]. Sw noted nurse or social science research assistant makes home visit from [facility] for assessments and to determine eligibility. Patient notes that she does not want to apply for Medicaid at this time. Sw noted that she would check in later on next week to see if patient made determination on home supervisor agency or needs more options to check on. Sw called patient to discuss in home care and intermediate care questions. Patient notes that she is getting ready to go to an appt and asks this Sw to call her back tomorrow after 10am. Sw will try call to patient tomorrow after 10. documented in this encounter [facility] 07-18-2024 Telephone encounter Note Patient phoned [...] advise on atenolol possibly being the cause. [facility] 07-17-2024 Telephone encounter Note Sw called to follow up with patient regarding home care assistance noted below. No answer, Sw left message that SW will try call again beginning of next week 07/21 to check in with patient. [facility] 07-16-2024 Telephone encounter Note Patient calling to state after receiving home care instructions related to constipation earlier today, she was able to successfully have a bowel movement. Patient advised to contact PCP office for any further concerns or questions. Meredith Varela RN [facility] 07-16-2024 Miscellaneous Notes Patient calling to state after receiving home care instructions related to constipation earlier today, she was able to successfully have a bowel movement. Patient advised to contact PCP office for any further concerns or questions. Meredith Wurst, RN documented in this encounter [facility] 07-14-2024 Telephone encounter Note Spoke with patient and she will go back on the Doxepin 10 mg she stated that insurance would not cover the 6 mg dosing due to cost. She was unsure why that was the case. Does not want a new script sent to pharmacy. States she still has plenty left from last fill. [facility] 07-14-2024 Miscellaneous Notes Spoke with patient [...] Please advise and phone patient with reply: [phone] documented in this encounter [facility] 07-14-2024 Telephone encounter Note Okay to go back to the doxepin, med list updated, we can have her try the 6 mg dose of doxepin if still having falls at night secondary to this medication. [facility] 07-14-2024 Telephone encounter Note Patient reports [...] Please advise and phone patient with reply: [phone] [facility] 07-12-2024 Telephone encounter Note Patient calling [...] which a provider is not aware: Yes. [facility] 07-12-2024 Miscellaneous Notes Patient calling with [...] not aware: Yes. documented in this encounter [facility] 07-11-2024 Telephone encounter Note See the other encounter regarding this. [facility] 07-11-2024 Miscellaneous Notes See the other [...] Request: Deny Medication Name: Doxepin Tab 6mg [facility]/ND: [id number] Decision Notes: DOXEPIN TAB 6MG is denied [...] not appropriate for you. Reviewed by: yousif, Logan.Ph. documented in this encounter [facility] 07-11-2024 Telephone encounter Note Noted, follow up at upcoming visit [facility] 07-11-2024 Telephone encounter Note Sw spoke with patient and reports that that she spoke with [facility] and was told they would cost $30 an hour. Sw and patient discussed [facility], [facility] and Sw provide that phone number to patient. Sw also provided patient with [facility] as an option for rehab services aide option. Sw provided patient with [facility] phone number to reach out to [place] office to check on [place] rates. Patient reports that she will call both [facility] and [facility] and obtain [place]rid quotes. Sw and patient discussed [facility] [place] [facility] Agency on Aging and Passport program. Sw noted that Passport is a Medicaid eligible program through [facility]. Sw noted nurse or social science research assistant makes home visit from [facility] for assessments and to determine eligibility. Patient notes that she does not want to apply for Medicaid at this time. Sw noted that she would check in later on next week to see if patient made determination on home supervisor agency or needs more options to check on. [facility] 07-11-2024 Telephone encounter Note PATIENT NOTIFIED OF SAME. [facility] 07-11-2024 Miscellaneous Notes PATIENT NOTIFIED OF [...] patient with reply. documented in this encounter [facility] 07-11-2024 Telephone encounter Note We had discussed with her visit that the goal is to reduce her falls at night time, it seems the doxepin is contributing to this. I would like her to stop the doxepin and start Zoloft as this should not cause as much tiredness/drowsiness as the doxepin does. [facility] 07-10-2024 History of Present illness Narrative [...] Dr. Debra Silva (ophthalmology), Dr. Denny Briseno (business reporter) Medical/Family history review Reviewed and updated problem [...] F) Resp 16 Ht 148.5 cm (4' 10.47") Wt 79.5 kg (175 lb 4.3 oz) [...] with the left wrist surgery performed in [place] and the right wrist surgery in [place]. She reports occasional pain in her wrists, particularly when lifting heavy objects, and notes a history of her wrist "locking" in the past. She also experiences balance [...] of nearby family. She has considered using [employer] transportation services but is unsure of their availability. She also mentions difficulty navigating certain environments, such as gravel surfaces, which further limits her mobility. PHYSICAL EXAM BP 128/82 Pulse 68 Temp 36.5 C (97.7 F) Resp 16 Ht 148.5 cm (4' 10.47") Wt 79.5 kg (175 lb 4.3 oz) [...] Conducted comprehensive wellness examination as required by [facility]. - Reviewed and updated patient's medication list, [...] to strengthen muscles and improve balance, including manager athletics exercises, soup can exercises, and walking with [...] Dr. Debra Silva (ophthalmology), Dr. Denny Briseno (business reporter) Medical/Family history review Reviewed and updated problem [...] F) Resp 16 Ht 148.5 cm (4' 10.47") Wt 79.5 kg (175 lb 4.3 oz) [...] with the left wrist surgery performed in [place] and the right wrist surgery in [place]. She reports occasional pain in her wrists, particularly when lifting heavy objects, and notes a history of her wrist "locking" in the past. She also experiences balance [...] of nearby family. She has considered using [employer] transportation services but is unsure of their availability. She also mentions difficulty navigating certain environments, such as gravel surfaces, which further limits her mobility. PHYSICAL EXAM BP 128/82 Pulse 68 Temp 36.5 C (97.7 F) Resp 16 Ht 148.5 cm (4' 10.47") Wt 79.5 kg (175 lb 4.3 oz) [...] Conducted comprehensive wellness examination as required by [facility]. - Reviewed and updated patient's medication list, [...] to strengthen muscles and improve balance, including manager athletics exercises, soup can exercises, and walking with [...] Adeel Hayes MD documented in this encounter [facility] 07-10-2024 Telephone encounter Note Patient phoned [...] Please advise and phone patient with reply. [facility] 07-10-2024 Telephone encounter Note Sw called patient to discuss in home care and intermediate care questions. Patient notes that she is getting ready to go to an appt and asks this Sw to call her back tomorrow after 10am. Sw will try call to patient tomorrow after 10. [facility] 07-10-2024 Telephone encounter Note Called pt to review. She declines to try a formulary medicine. She is reluctant to start a new medicine. She will continue the doxepin 10mg She then reports she never started the zoloft from 06/23/24 when she saw Destini. She is asking if she should start this? [facility] 07-10-2024 Telephone encounter Note Electronic PA rec'd and completed for doxepin 6mg. This was reviewed and denied. Patient Name: Dodie Li Patient : 1945 Status of Request: Deny Medication Name: Doxepin Tab 6mg [facility]/NDC: [id number] Decision Notes: DOXEPIN TAB 6MG is denied [...] appropriate for you. Reviewed by: yousif, R.Ph. [facility] 07-09-2024 Instructions Adeel Hayes MD - [...] your vision impairment. - Contact a social science research assistant to discuss options for home health services [...] to vision impairment. documented in this encounter [facility] 07-09-2024 History of Present illness Narrative This note was created using [employer] Int. Subjective Dodie Li is a 78 year [...] the right eye, which was previously her "good eye." She describes the vision as "distorted" and notes that she can no longer see clearly out of the corner of her eye. She has experienced a "crackling" sensation in her ears and requests an otoscopic examination. She reports experiencing vertigo, describing a "spinning" sensation that occurs when she turns her [...] She activated her medical alert system, and educational paraprofessional responded, having to unlock the door to assist her. She denies loss of consciousness during these falls but describes the sensation as "almost like somebody pushes me and it's, then it's over. I'm on the floor." She denies significant arthritis pain in her [...] not awake. It's like I am so tired." She is currently taking 10 mg of doxepin for sleep but expresses a desire to reduce the dosage due to a "hangover effect" in the morning. She denies trying Zoloft, stating she was afraid it would make her "more loopy and then I would fall again." She reports waking up 3-4 times per night and frequently moving between her couch, chair, and lift chair to find a comfortable sleeping position. She expresses frustration and depression due to her declining health and increasing isolation, stating, "I'm just a mess, and I'm getting more depressed all the time because I don't know how to deal with this. And I'm by myself." She has limited family support, with only [...] She expresses fear about the future, stating, "I'm scared. I don't want to keep falling." She inquires about options for assisted living and home health services, noting that she has heard about services costing $30 per hour. She is concerned about the financial implications of assisted living, stating, "I guess I'm not going to have any choice, really." She expresses a desire to stay at [...] Take 1,000 mcg by mouth once daily. [id number] ORAL Take 1 tablet by mouth once [...] eye care specialists. - Referred to social science research assistant Ashley Olmos for assistance with home health [...] Adeel Hayes MD documented in this encounter [facility] 07-04-2024 Telephone encounter Note Patient reports she spoke to someone earlier this morning that was going to schedule and appt with pcp for her. Asking if an appt was scheduled. Advised patient she is scheduled with pcp on 07-09-24 @ 2:40 pm. Patient states she needed to know this so she can arrange for transportation. [facility] 07-04-2024 Miscellaneous Notes Patient reports she spoke to someone earlier this morning that was going to schedule and appt with pcp for her. Asking if an appt was scheduled. Advised patient she is scheduled with pcp on 07-09-24 @ 2:40 pm. Patient states she needed to know this so she can arrange for transportation. documented in this encounter [facility] 06-23-2024 Telephone encounter Note Pt called in to have referral to [facility] faxed along with supporting information, face sheet, office notes and referral. Fax to [phone]. I also called [facility] to verify what they needed. Faxed everything and notified pt. Karin Osorio LPN [facility] 06-23-2024 Miscellaneous Notes Pt called in to have referral to [facility] faxed along with supporting information, face sheet, office notes and referral. Fax to [phone]. I also called [facility] to verify what they needed. Faxed everything and notified pt. Karin Osorio LPN documented in this encounter [facility] 06-23-2024 History of Present illness Narrative [...] Take 1,000 mcg by mouth once daily. [id number]-[id number]-[id number] ORAL Take 1 tablet by mouth once [...] ALLERGIES Allergen Reactions Simvastatin Other: See Comments "Flu like sx", body aches Amoxicillin Rash Asa [Salicylates] if [...] medication.. MARQUIS Arredondo documented in this encounter [facility] 06-23-2024 Telephone encounter Note Patient calls [...] see Destini talavera 06/23/2024. Carla Almonte RN [facility] 06-23-2024 Miscellaneous Notes Patient calls with [...] scheduled to see Destini today 06/23/2024. Carla Almonte RN documented in this encounter [facility] 06-13-2024 Telephone encounter Note Carla aguilar [facility] calls to let provider know that they are unable to accept referral for HH d/t patients insurance. Attempted to contact patient with no answer and not able to leave a message. Daniela Gordon RN [facility] 06-13-2024 Miscellaneous Notes Carla aguilar [facility] calls to let provider know that they are unable to accept referral for HH d/t patients insurance. Attempted to contact patient with no answer and not able to leave a message. Daniela Gordon RN Most recent home health services noted in chart was through [facility]. Spoke with patient to confirm this was so and order for PT was faxed to [facility] [place]. PT would be a good idea, orders placed for in home PT with [facility], please fax orders. Patient calls and states [...] Carla Almonte RN documented in this encounter [facility] 06-13-2024 Telephone encounter Note Most recent home health services noted in chart was through [facility]. Spoke with patient to confirm this was so and order for PT was faxed to [facility] [place]. [facility] 06-11-2024 Telephone encounter Note PT would be a good idea, orders placed for [facility] home PT with [facility], please fax orders. [facility] 06-10-2024 Telephone encounter Note Patient calls [...] Please review and advise, Carla Almonte RN [facility] 05-28-2024 Instructions Adeel Hayes MD - 05/28/2024 4:27 PM EDT -Continue your home exercises for balance and strength, as previously instructed by physical therapy. - For hand strength and coordination, consider using a manager athletics strengthener or squeezing a soft ball. You can also practice picking up small objects like coins or marbles. - For arm strength, you can use light weights like soup cans or water bottles. Perform exercises like bicep curls and tricep extensions. If you experience discomfort, start with food service technician weights or no weight at all. - [...] review all the medicines you take, even jjrj-ldz-neykhxv medicines. As you get older, the way [...] certain medical conditions. documented in this encounter [facility] 05-06-2024 Telephone encounter Note The patient [...] Varela RN May 06, 2024 9:53 AM [facility] 05-06-2024 Miscellaneous Notes The patient has [...] 2024 9:53 AM documented in this encounter [facility] 04-24-2024 Telephone encounter Note Patient notified of providers message and verbalized understanding. Medicare wellness scheduled. [facility] 04-24-2024 Miscellaneous Notes Patient notified of [...] Winifred Calixto LPN documented in this encounter [facility] 04-24-2024 Telephone encounter Note Noted that patient needs Medicare AWV--see if wants to come in for that (covered by insurance) and can discuss vitamins at that time. If she already bought the vitamins, an compare bottles of what she has and decide what to stay on and what to stop. [facility] 04-22-2024 Telephone encounter Note Pt called back and had another question in addition to below. If it is okay to take the Nature's Balance does she need to stop some of the other OTC vitamins she is taking and if so please let pt know. Karin Osorio LPN [facility] 04-22-2024 Telephone encounter Note Pt calls to reports she does not eat enough fruits and vegetables and would like to take a supplement: Balance Nature. Pt reports there is one for fruits and one for vegetables. Pt is asking if it is ok to take this. Winifrde Calixto LPN [facility] 04-08-2024 History of Present illness Narrative Subjective: Patient presents to clinic c/o painful toenails. They state that the nails are especially painful with shoe gear and pressure. No other pedal complaints at this time. Patient states no change in medications or medical history since last visit. Objective: Patient presents to clinic ambulating in [facility] Vasc: DP and PT pulses are nonpalpable [...] care. ASHLEY 12/18/23 documented in this encounter [facility] 03-24-2024 Telephone encounter Note Added result note: Labs all within normal limits except for mildly elevated BUN. Patient was already counseled to drink more water on a regular basis to maintain hydration. No further recommendations needed [facility] 03-24-2024 Miscellaneous Notes Added result note: [...] call and advise/. documented in this encounter [facility] 03-24-2024 Telephone encounter Note Pt called [...] back to her. Please call and advise/. [facility] 03-21-2024 Telephone encounter Note Home care Certification Form 485 received from [facility]. For cert dates 02/10/2024-04/09/2024 that were signed on 02/19/2024. Recertification Patient's home health 485 form / care plan for stated certification period reviewed and signed. Relevant medical records were reviewed. No changes were indicated [facility] 03-21-2024 Miscellaneous Notes Home care Certification Form 485 received from [facility]. For cert dates 02/10/2024-04/09/2024 that were signed on 02/19/2024. Recertification Patient's home health 485 form / care plan for stated certification period reviewed and signed. Relevant medical records were reviewed. No changes were indicated documented in this encounter [facility] 03-13-2024 Telephone encounter Note Pt called and is notified of providers message. Pt voices understanding. Deidra Flores RN [facility] 03-13-2024 Miscellaneous Notes Pt called and is notified of providers message. Pt voices understanding. Deidra Flores RN The following approved medication requests have been transmitted electronically. Requested Prescriptions Signed Prescriptions Disp Refills doxepin capsule 10 mg 90 capsule 3 Sig: Take 1 capsule by mouth daily at bedtime. Authorizing Provider: ADEEL HAYES MD Pt reports she accidentally had provider send medication to [facility] and she alonso get them cheaper through [facility]. Please send to [facility] in [place] and call Pt once sent. Prescription Refill [...] 1 capsule by mouth daily at bedtime. Deirda Flores RN March 13, 2024 8:18 AM documented in this encounter [facility] 03-13-2024 Telephone encounter Note The following approved medication requests have been transmitted electronically. Requested Prescriptions Signed Prescriptions Disp Refills doxepin capsule 10 mg 90 capsule 3 Sig: Take 1 capsule by mouth daily at bedtime. Authorizing Provider: ADEEL HAYES MD [facility] 03-13-2024 Telephone encounter Note Pt reports she accidentally had provider send medication to [facility] and she alonso get them cheaper through [facility]. Please send to [facility] in [place] and call Pt once sent. [...] Flores RN March 13, 2024 8:18 AM [facility] 03-12-2024 Instructions Adeel Hayes MD - 03/12/2024 10:27 AM EDT Okay to try half pill Zoloft nightly with 10mg Doxepin. Can adjust doses as needed. May increase Zoloft to whole pill as needed. documented in this encounter [facility] 03-12-2024 History of Present illness Narrative This note was created using [employer]. Subjective Dodie Li is a 78 year [...] daily. (Patient not taking: Reported on 03/12/2024) [id number] ORAL Take 1 tablet by mouth once [...] Adeel Hayes MD documented in this encounter [facility] 02-19-2024 Telephone encounter Note Sw spoke with patient regarding transportation and social programs in the community. Patient reports that she has macular degeneration. Patient reports that she did go and sign up for [employer] vouchers. Discussed [employer] and their program that offers transportation to medical and non medical, stores and other appts, safety home modifications, scam awareness and bill pay IT assistance. Patient reports that she did sign up for [employer] Day activities and was told about marjorie to attend daily. Patient reports with marjorie assistance she could attend [employer] a couple of times a month. Sw also provided patient with [employer] Campbell phone number for [employer] program. Patient reports that she uses a large magnifier but was looking for another magnifying option to help with reading. Sw also noted that she will mail out [employer] Older Adult resource guide to patient home. Patient thanked Sw for the call and will speak with [employer] to see about transportation assistance to stores and medical appts. [facility] 02-19-2024 Miscellaneous Notes Sw spoke with patient regarding transportation and social programs in the community. Patient reports that she has macular degeneration. Patient reports that she did go and sign up for [employer] vouchers. Discussed [employer] [place] and their program that offers transportation to medical and non medical, stores and other appts, safety home modifications, scam awareness and bill pay IT assistance. Patient reports that she did sign up for [employer] [place] Day activities and was told about marjorie to attend daily. Patient reports with marjorie assistance she could attend [employer] a couple of times a month. Sw also provided patient with [employer] Osmany Campbell phone number for [place] [employer] Vision Care program. Patient reports that she uses a large magnifier but was looking for another magnifying option to help with reading. Sw also noted that she will mail out [place] [employer] Older Adult resource guide to patient home. Patient thanked Saad for the call and will speak with [place] to see about transportation assistance to stores and medical appts. Saad left message for patient to return call to discuss transportation and community socialization agency info. documented in this encounter [facility] 02-15-2024 Telephone encounter Note Saad left message for patient to return call to discuss transportation and community socialization agency info. [facility] 02-12-2024 History of Present illness Narrative [...] Take 1,000 mcg by mouth once daily. [id number]-[id number]-[id number] ORAL Take 1 tablet by mouth once [...] activity was identified. 02/12/2024 by Destini Lee APRN.MERARI - SERTRALINE 25 MG TABLET - ALPRAZOLAM [...] Destini Lee APRN-MERARI documented in this encounter [facility] 01-23-2024 Miscellaneous Notes Patient calls and [...] Patient calling and states that she see technical information specialist for her macular degeneration. Patient states that specialist is recommending that she get Syfovre injections to her eyes. Patient is wanting to know Dr. Hayes thoughts on this and whether or not PCP thinks she should go ahead and start getting injections? Please review and advise, Carla Almonte RN documented in this encounter [facility] 12-21-2023 History of Present illness Narrative POPULATION HEALTH NAVIGATION OUTREACH Action/FYI msg to schedule wellness Reason for Outreach Care Gap/HCC or Scheduling Wellness Visits Care Gaps due: Medicare Annual Wellness Visit Patient Contacted: Unable or unnecessary to reach patient: Left message Navigation Signature: Gauri Mcleod MA December 21, 2023 2:19 PM documented in this encounter [facility] 12-18-2023 History of Present illness Narrative Subjective: Patient presents to clinic c/o painful toenails. They state that the nails are especially painful with shoe gear and pressure. Patient states that nails 1-5 b/l are painful. No other pedal complaints at this time. Patient states no change in medications or medical history since last visit. Objective: Patient presents to clinic ambulating in eaker Vasc: DP and PT pulses are palpable [...] and I have asked that patient use [place] board to file Patient is to RTC in 3-4 months. Victoria Ashley DPM Patient presents with: Left Foot - Established Patient, Debridement of Nail Right Foot - Established Patient, Debridement of Nail documented in this encounter [facility] 12-10-2023 Miscellaneous Notes Spoke with patient. [...] want to be put on a medication intermediate but asking if there is anything to take short term? Please review and advise, Carla Almonte RN documented in this encounter [facility] 11-30-2023 Instructions Adeel Hayes MD - [...] usual activities immediately. documented in this encounter [facility] 02-23-2024 History of Present illness Narrative This note was created using Gn[employer]. Subjective Dodie Li is a 78 year [...] essential hypertension Current Outpatient Medications Medication Sig [id number]-[id number]-MURK ORAL Take 1 tablet by mouth once [...] she get HEP [facility] to help with improving strength and stamina s/p right hip replacement. Further evaluation and treatment as indicated. I spent a total of 32 minutes on the date of the service which included completing clinical documentation, obtaining and/or reviewing separately obtained history, performing a medically appropriate examination, and counseling and educating the patient/family/caregiver. Adeel Hayes MD documented in this encounter [facility] 11-14-2023 Miscellaneous Notes Pt notified that [...] USPS. Address verified. documented in this encounter [facility] 09-18-2023 Instructions Adeel Hayes MD - [...] usual activities immediately. documented in this encounter [facility] 09-18-2023 History of Present illness Narrative This note was created using [employer]. Subjective Dodie Li is a 78 year old female. Patient presents with: F/U 6 months SUBJECTIVE: Dodie Li is a 78 year old year old lady here today for 6 month follow up appointment for review of medical conditions. Noted decreased hearing. Been gradual. 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 [...] Height as of 11/10/19: 154.9 cm (5' 1"). Weight as of this encounter: 83.9 kg [...] loss type H91.93 Plans to go to [facility]. Above issues addressed with patient. Patient involved [...] and adequate sleep. Plans to go to [facility] for hearing aid assessment. Adeel Hayes MD documented in this encounter [facility] 09-03-2023 History of Present illness Narrative [...] sneaker Vasc: DP and PT pulses are faintly [...] Sabina Briseno LPN documented in this encounter [facility] 08-14-2023 Miscellaneous Notes Pt calling in stating there was some confusion on her omeprazole refill and was wondering if office got it straightened out. Did not see anything regarding this. Advised pt rx was sent to [facility] on 08/07. Pt states pharm had mentioned a medication on her message that was a "P R I something" advised her that Prilosec is the brand [...] Staci Botello LPN documented in this encounter [facility] 08-07-2023 Miscellaneous Notes Date of last office: 03/10/2023 Date of next office visit: 09/18/2023 Requested Prescriptions Pending Prescriptions Disp Refills omeprazole (PRILOSEC) 20 mg capsule 90 capsule 3 Sig: Take 1 capsule by mouth once daily. Date of Last Labs: 03/09/2023 Please advise. Thank you. Carla Almonte RN. documented in this encounter [facility] 06-08-2023 Miscellaneous Notes The following approved [...] Jared Benedict LPN documented in this encounter [facility] 05-21-2023 History of Present illness Narrative [...] SURGICAL HISTORY OF wrist surgery [place] PAST SURGICAL HISTORY OF wrist surgery left [...] removal. Victoria Ashley DPM Podiatry [address] [facility] [address] Dept: [phone] Dept Patient presents with: Left Foot - New Right Foot - New Patient reports no pain at this time. She reports having previous ingrown great toe nails treated by another provider. documented in this encounter [facility] 03-26-2023 Miscellaneous Notes OK, please schedule [...] Carla Almonte RN documented in this encounter [facility] 03-10-2023 History of Present illness Narrative This note was created using Gnammoter. Subjective Dodie Li is a 77 year [...] Height as of 11/10/19: 154.9 cm (5' 1"). Weight as of this encounter: 82.5 kg [...] Abs Lymph 1.00 - 4.00 k/uL 2.11 Williamson% % 8.0 Abs Williamson <0.87 k/uL 0.56 Eosin% % 4.0 Abs [...] Continue present management. Can follow up with instrumentation fitter as needed for thickened toenails. Adeel Hayes MD documented in this encounter [facility] 03-08-2023 Miscellaneous Notes Patient notified of [...] Winifred Calixto LPN documented in this encounter [facility] 02-12-2023 Miscellaneous Notes Patient notified of [...] again. Please advise documented in this encounter [facility] 02-01-2023 Miscellaneous Notes Patient suspects she [...] now. 9. : No Protocols used: Insect Qdvy-[id number]-WO documented in this encounter [facility] 01-08-2023 Procedure note [facility] 12-20-2022 Miscellaneous Notes The following approved [...] Last Labs: 01/18/2022 documented in this encounter [facility] 12-12-2022 Miscellaneous Notes Pt reports she [...] Winifred Calixto LPN documented in this encounter [facility] 11-24-2022 Miscellaneous Notes Call placed to [...] pain related to her broken arm by [facility]. The bottle she was given reads [...] Daniela Gordon RN documented in this encounter [facility] 11-18-2022 Miscellaneous Notes Patient called and [...] Winifred Calixto LPN documented in this encounter [facility] 11-17-2022 History of Present illness Narrative Images from the original note were not included. Subjective The history is provided by the patient. No crane hoist or lift operator was used. HPI Dodie Li is a [...] have confirmed and edited as necessary, the [facility] Review of Systems Constitutional: Negative [...] Griselda Smiley APRN.MERARI documented in this encounter [facility] 10-26-2022 Miscellaneous Notes Rx sent Pt calling and was seen for an yeast infection. She has taken the medication given and there is just a little left. Pt requesting an other prescription to make sure it goes completely away. Please advise pt. Okay to leave a message. Karin Osorio LPN documented in this encounter [facility] 10-13-2022 Miscellaneous Notes Sw reviewed [facility], [facility], [facility] [employer], and [employer] numbers. Patient [...] spoke with patient and provided her with [facility], [place], and [facility] numbers to see about home supervisor to help with bathing/grooming. Patient cousin Shreya took down information and will let Sw know if those agencies do not work and they need more options. Sw called and spoke with patient and she asks that Sw call back in a little while to speak with her cousin in regards to home supervisor agencies in community. Sw noted self pay for home supervisor unless on Passport/AAA. Patient notes that she is concerned with bathing/grooming due to treating a yeast infection in vaginal area. Patient notes with broken arm it is hard to take care of personal care. Sw notes that she will call patient back between 3 and 3:15 to speak with cousin so that she can write down names and numbers for local home supervisor agencies. Sw left message for patient letting her know that she has listing of home insurance healthcare representative agencies ie. [employer], [facility] [place], [employer]. Sw can mail patient listing. These are self pay unless on Medicaid and receives Passport Services. Sw notes patient is on Medicare and does not see any mention of Medicaid. Sw noted that patient can call Sw back and let her know if she would like Sw to mail names and numbers to patient for her to contact to set up home supervisor assistance. Patient calling to follow-up on request for a social science research assistant to assist with her request for a possible HHC. See OV note 10/04/22 for note to social science research assistant. Patient states she lives alone and would like assistance as soon as possible. Please advise patient. Thank you. documented in this encounter [facility] 10-04-2022 Instructions Adeel Hayes MD - [...] dose if needed. documented in this encounter [facility] 10-04-2022 History of Present illness Narrative This note was created using Gnammoter. Subjective Dodie Li is a 77 year old female. Patient presents with: Established Patient: Broke right arm and needi [facility] to assist with care SUBJECTIVE: Dodie Li is a 77 year old year old lady here today for follow up appointment for review of medical conditions. Noted that having ongoing issue with resolving yeast infection. Has some help but needs more assistance and would like to see about aides. Tried to call [employer] but customer account administrator not helpful. Thought needed help for another week to do one of the treatments. Noted will need about another 4 weeks with cast on. Would like to see about aide to help for next 4 weeks. [place] [facility]--was treated by her eye doctor. Treated [...] (Patient not taking: Reported on 10/04/2022) vit A,C,B-Jies-Efpxnn 7,160-113-100 nzrr-gz-gbxe ORAL Tab Take by mouth. As directed. [...] Diagnosis ICD-10-CM 1. [place] intertrigo B37.2 2. 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 Please find out whom to call to [...] Home Health be called to [employer]. Call [employer] at [phone]. Dr. Newman's office was to have called but never did and [employer] told patient that if PCP would place order then patient could be set up with home health sooner than waiting for Dr. Newman's office to take care of order. Please call patient once this has been completed. documented in this encounter [facility] 09-30-2022 Miscellaneous Notes Pt notified. The [...] sweat. MANUEL Leary. documented in this encounter [facility] 09-28-2022 History of Present illness Narrative [...] history is provided by the patient. No crane hoist or lift operator was used. ROS Objective Physical Exam Constitutional: [...] SURGICAL HISTORY OF wrist surgery [place] PAST SURGICAL HISTORY OF wrist surgery left [...] 81 mg by mouth once daily. vit A,C,C-Llpn-Svtvjw 7,160-113-100 mioq-yb-bcut ORAL Tab Take by mouth. As directed. [...] Melina Doan APRN.MERARI documented in this encounter [facility] 09-28-2022 Instructions Melina Doan APRN.CNP - 09/28/2022 10:51 AM EST Abdominal fold [...] all of those. documented in this encounter [facility] 09-28-2022 Miscellaneous Notes Patient reports she is having s/s of yeast infection in zac area. Reports she broke her right arm and unable to wipe good enough when using bathroom. Asking if provider can send Rx to pharmacy. Advised would need to be seen. Patient declined same day appt with Cost And Risk Analysis Manager jaclyn galannoon. States she has another doctor appt this morning and plans to just stop at [facility] for evaluation. documented in this encounter [facility] 09-22-2022 Miscellaneous Notes Patient aware of [...] call and advise. documented in this encounter [facility] 09-20-2022 Miscellaneous Notes PT stated Charisse Atkinson will be picking up CD. Sheila TELLEZ CD/report READY FOR COVER MAT MACHINE OPERATOR AT [facility] Patient requesting report and cd of xray performed on 09/18/22. Patient broke right arm she will send someone to filler picker records. Patient cannot drive nor write due to injury. Please call patient to get a verbal auth. documented in this encounter [facility] 09-18-2022 History of Present illness Narrative [...] 2022 6:43 PM documented in this encounter [facility] 09-18-2022 History of Present illness Narrative [...] history is provided by the patient. No crane hoist or lift operator was used. Trauma Review of Systems Constitutional: [...] SURGICAL HISTORY OF wrist surgery right [place] PAST SURGICAL HISTORY OF wrist surgery left [...] 81 mg by mouth once daily. vit A,C,W-Mxqi-Jyeoea 7,160-113-100 qjsh-we-bstk ORAL Tab Take by mouth. As directed. [...] ICD9: 780.96, ICD10: R52 - XR SHOULDER [id number] AP/TRUE AP RIGHT - XR FOREARM GENERAL [...] IMPRESSION: No acute osseous abnormalities are identified. Judge: [facility] Transcribe Date/Time: Sep 18 2022 7:31P Dictated [...] IMPRESSION IMPRESSION: Distal radial and ulnar fractures. Judge: [facility] Transcribe Date/Time: Sep 18 2022 7:33P Dictated [...] IMPRESSION: No acute osseous abnormalities are identified. Judge: [facility] Transcribe Date/Time: Sep 18 2022 7:37P [...] IMPRESSION IMPRESSION: Distal radial and ulnar fractures. Judge: [facility] Transcribe Date/Time: Sep 18 2022 7:35P Dictated by : MONISHA CARVALHO MD Patient was placed in a sugar-tong splint. Custom made Ortho-Glass splint. Patient was then placed in a sling. Patient will just take llqo-fvc-eerzgwh Tylenol as she does not want to be any in any form of grogginess. Did instruct the family that someone should stay with her over the next few days until her orthopedic appointment on Sunday. To help patient now they said they would accommodate that. Patient was okay with this care plan. Melina Doan APRN.MERARI documented in this encounter [facility] 08-18-2022 Miscellaneous Notes Patient is looking into switching insurance and if her potassium is switched to Micro K 10 ERICH it will be a 0 co-pay. She is not needing this now just as a reminder at the first of the year when due for refill. documented in this encounter [facility] 08-16-2022 Miscellaneous Notes Noted. Will review [...] Assessment - Initial Assessment Questions 1. SYMPTOMS: " Redness and Pain 2. ONSET: Given on Sunday08/14/2022 3. SEVERITY: "How bad is it?" Patient states that she has red streak going across arm, an inch or so below where immunization was given. It measure about 1/2 inch wide and 2 inches long. Patient states that area is hard an painful to touch. 4. FEVER: Denies fever 5. IMMUNIZATIONS GIVEN: "What shots have you recently received?" Flu Vaccination 6. PAST REACTIONS: Itchy, but not red. Protocols used: Immunization Ohkfnljss-JVCQU-GY documented in this encounter [facility] 08-14-2022 Instructions Adeel Hayes MD - [...] usual activities immediately. documented in this encounter [facility] 08-14-2022 History of Present illness Narrative This note was created using [employer] Int. Subjective Dodie Li is a 77 year [...] 81 mg by mouth once daily. vit A,C,W-Uyiy-Qctnra 7,160-113-100 iegq-bv-hrur ORAL Tab Take by mouth. As directed. [...] Height as of 11/10/19: 154.9 cm (5' 1"). Weight as of this encounter: 83.5 kg [...] Adeel Hayes MD documented in this encounter [facility] 06-21-2022 Miscellaneous Notes The following approved [...] Last Labs: 01/18/2022 documented in this encounter [facility] 04-07-2022 Miscellaneous Notes The following approved medication requests have been transmitted electronically. Signed Prescriptions Disp Refills gemfibrozil (LOPID) 600 mg tablet 20 tablet 0 Sig: Take 1 tablet by mouth twice daily. COBY: No Authorizing Provider: ADEEL HAYES MD Pt called in and reports she is almost out of medication and asking for short term to be sent to [facility] while she waits for mail-in pharmacy. documented in this encounter [facility] 04-06-2022 Miscellaneous Notes Okayed Pt calling for refill. ASHLEY: 03/24/22 NOV: 08/14/22 Last Refill: Pt had been getting refills from Dr Pascual but states [facility] no [facility] & pt has not been to see another pipe stripper. Pt asking if pcp will fill? Please notify pt . Janet Frias LPN documented in this encounter [facility] 03-31-2022 Miscellaneous Notes Pt called and is notified of providers results and instructions. Pt voices understanding. Deidra Flores RN Potassium is better but still low Increased to twice daily potassium pills and sent to [facility]. Can take 2 once daily if prefers. [...] Ameena Truong LPN documented in this encounter [facility] 03-28-2022 Miscellaneous Notes Patient's request for [...] Ameena Truong LPN documented in this encounter [facility] 03-24-2022 History of Present illness Narrative This note was created using [employer] Int. Subjective Dodie Li is a 76 year old female. Patient presents with: Follow Up SUBJECTIVE: Dodie Li is a 76 year old year old lady here today for 6 month follow up appointment for review of medical conditions. Noted that sometimes hard to hear when in [place] and the speaker's voice trails off. Cannot [...] 81 mg by mouth once daily. vit A,C,J-Blhr-Uqlosm 7,160-113-100 eqsa-fv-fggg ORAL Tab Take by mouth. As directed. [...] Height as of 11/10/19: 154.9 cm (5' 1"). Weight as of this encounter: 83.5 kg [...] Abs Lymph 1.00 - 4.00 k/uL 2.11 Williamson% % 8.0 Abs Williamson <0.87 k/uL 0.56 Eosin% % 4.0 Abs [...] H91.93 Consider getting help for hearing aids. [facility] might help ASSESSMENT/PLAN: 1. Essential hypertension - [...] Adeel Hayes MD documented in this encounter [facility] 02-02-2022 Miscellaneous Notes Phoned patient and [...] again by . documented in this encounter [facility] 01-09-2022 Miscellaneous Notes Patient notified of [...] patient with reply. documented in this encounter [facility] 01-03-2022 Miscellaneous Notes Patient notified of providers message and verbalized understanding. Fasting labs ordered Malu Draper APRN.CNP Patient scheduled for follow up 02/03. Patient asking if Dr. Hayes would like for her to have lab draw prior to office visit. Please advise and call patient. Thank you documented in this encounter [facility] 12-31-2021 Miscellaneous Notes The following approved [...] Daniela Gordon RN documented in this encounter [facility] Evaluation note Diagnosis Persistent disorder of initiating or maintaining sleep [facility] Diagnosis Hypertriglyceridemia- Primary Pure hyperglyceridemia Essential hypertension Unspecified essential hypertension Vitamin D deficiency Unspecified vitamin D deficiency [facility] Diagnosis Persistent disorder of initiating or maintaining sleep Anxiety state Anxiety state, unspecified [facility] Diagnosis Essential hypertension- Primary Unspecified essential hypertension Persistent disorder of initiating or maintaining sleep Vitamin D deficiency Unspecified vitamin D deficiency Hypokalemia Hypopotassemia Varicose veins of both lower extremities, unspecified whether complicated Hearing difficulty of both ears [facility] Diagnosis Hypokalemia- Primary Hypopotassemia [facility] Diagnosis Essential hypertension- Primary Unspecified [...] malignant neoplasms, colon [facility] noteNo assessment information availableWMartin [facility] Hospital Work Phone: Evaluation note* Diagnosis Pain- Primary Generalized pain [facility] Diagnosis Skin rash- Primary Rash and other nonspecific skin eruption [facility] Diagnosis Candidal intertrigo- Primary Candidiasis of skin and nails [place] eye disease of both eyes Closed fracture of right upper extremity, sequela [facility] Diagnosis Itching- Primary Unspecified pruritic disorder [facility] Diagnosis Toenail deformity- Primary Unspecified disease of nail [facility] Diagnosis Persistent disorder of initiating or maintaining sleep- Primary Candidal intertrigo Candidiasis of skin and nails Essential hypertension Unspecified essential hypertension Class 1 obesity due to excess calories without serious comorbidity with body mass index (BMI) of 34.0 to 34.9 in adult Screening for colon cancer Special screening for malignant neoplasms, colon [facility] Diagnosis Onychomycosis- Primary Dermatophytosis of nail Toenail deformity Unspecified disease of nail Pain in toe of left foot Pain in limb Pain in toe of right foot Pain in limb [facility] Diagnosis Anxiety state Anxiety state, unspecified [facility] Diagnosis Onychomycosis- Primary Dermatophytosis of nail Pain in toe of left foot Pain in limb Pain in toe of right foot Pain in limb [facility] Diagnosis Persistent disorder of initiating [...] hearing loss type [facility] Diagnosis Gait instability- Primary Abnormality of gait Status post right hip replacement Hip joint replacement by other means Asymptomatic postmenopausal status [facility] Diagnosis Onychomycosis- Primary Dermatophytosis of nail Pain in toe of left foot Pain in limb Pain in toe of right foot Pain in limb [facility] Diagnosis 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 Adjustment disorder with mixed anxiety and depressed mood Macular degeneration of both eyes, unspecified type [facility] Diagnosis Persistent disorder of initiating or maintaining sleep [facility] Diagnosis Persistent disorder of initiating [...] single bacterial disease [facility] Diagnosis Aftercare following joint replacement surgery, unspecified joint- Primary [facility] Diagnosis Onychomycosis- Primary Dermatophytosis of nail Pain in toe of left foot Pain in limb Pain in toe of right foot Pain in limb [facility] Diagnosis HYPERTENSION NOS- Primary Unspecified [...] by other means [facility] [place] [facility] Diagnosis HYPERTENSION NOS- Primary Unspecified essential [...] Diarrhea, unspecified type [facility] [place] [facility] Diagnosis HYPERTENSION NOS- Primary Unspecified essential [...] Pain Generalized pain [facility] [place] [facility] Diagnosis HYPERTENSION NOS- Primary Unspecified essential [...] Hypertriglyceridemia Pure hyperglyceridemia [facility] [place] [facility] Diagnosis HYPERTENSION NOS- Primary Unspecified essential [...] single bacterial disease [facility] [place] [facility] Diagnosis HYPERTENSION NOS- Primary Unspecified essential [...] Pain in limb [facility] Diagnosis HYPERTENSION NOS- Primary Unspecified [...] Anxiety state, unspecified [facility] [place] [facility] Diagnosis HYPERTENSION NOS- Primary Unspecified essential [...] Muscle weakness (generalized) [facility] [place] [facility]* Diagnosis HYPERTENSION NOS- Primary Unspecified essential [...] unspecified type- Primary [facility] [place] [facility] Diagnosis HYPERTENSION NOS- Primary Unspecified essential [...] of right foot [facility] [place] [facility] Diagnosis HYPERTENSION NOS- Primary Unspecified essential [...] and depressed mood [facility] [place] [facility] Diagnosis HYPERTENSION NOS- Primary Unspecified essential [...] impairment Memory loss [facility] Diagnosis HYPERTENSION NOS- Primary Unspecified [...] skin and nails [facility]ative[facility] Diagnostic Procedure Only (Urgent) - Closed Specialty Diagnoses / Procedures Referred By Contac t Referred To Contact XR IMAGING Diagnoses Pain Procedures XR HIP GENERAL 3V PELV/AP/LAT RIGHT RADEX HIP UNILATERAL WITH PELVIS 2-3 VIEWS Melina Doan APRN.SOCIAL SCIENCES RESEARCH SCIENTIST [address] [place] [address] [place] [address] Referral ID Status Reason Start Date Expiration Date V isits Requested Visits Authorized [id number] Closed Auto-Generate d Referral 09/18/2022 10/18/2023 1 1 * Diagnostic Procedure Only (Urgent) - Closed Specialty Diagnoses / Procedures Referred By Contac t Referred To Contact XR IMAGING Diagnoses Pain Procedures XR SACRUM/COCCYX 3V AP/LAT RADEX SACRUM & COCCYX MINIMUM 2 VIEWS Melina Doan APRN.SOCIAL SCIENCES RESEARCH SCIENTIST [address] [place] [address] [place] [address] Referral ID Status Reason Start Date Expiration Date V isits Requested Visits Authorized [id number] Closed Auto-Generate d Referral 09/18/2022 10/18/2023 1 1 * Diagnostic Procedure Only (Urgent) - Closed Specialty Diagnoses / Procedures Referred By Contac t Referred To Contact XR IMAGING Diagnoses Pain Procedures XR HAND GENERAL 3V PA/LAT/OBL RIGHT RADEX HAND MINIMUM 3 VIEWS Melina Doan APRN.SOCIAL SCIENCES RESEARCH SCIENTIST [address] [place] [address] [place] [address] Referral ID Status Reason Start Date Expiration Date V isits Requested Visits Authorized [id number] Closed Auto-Generate d Referral 09/18/2022 10/18/2023 1 1 * Diagnostic Procedure Only (Urgent) - Closed Specialty Diagnoses / Procedures Referred By Contac t Referred To Contact XR IMAGING Diagnoses Pain Procedures XR FOREARM GENERAL 2V AP/LAT RIGHT RADEX FOREARM 2 VIEWS Melina Doan APRN.SOCIAL SCIENCES RESEARCH SCIENTIST [address] [place] [address] [place] [address] Referral ID Status Reason Start Date Expiration Date V isits Requested Visits Authorized [id number] Closed Auto-Generate d Referral 09/18/2022 10/18/2023 1 1 * Diagnostic Procedure Only (Urgent) - Closed Specialty Diagnoses / Procedures Referred By Contac t Referred To Contact XR IMAGING Diagnoses Pain Procedures XR SHOULDER [id number] AP/TRUE AP RIGHT RADEX SHOULDER COMPLETE MINIMUM 2 VIEWS Melina Doan APRN.SOCIAL SCIENCES RESEARCH SCIENTIST [address] [place] [address] [place] [address] Referral ID Status Reason Start Date Expiration Date V isits Requested Visits Authorized [id number] Closed Auto-Generate d Referral 09/18/2022 10/18/2023 1 1 [facility])No reason for referral information availableWMartin Memorial Hospital Work Phone: Reason for visit Narrative* Diagnostic Procedure Only (Urgent) - Closed Specialty Diagnoses / Procedures Referred By Contac t Referred To Contact XR IMAGING Diagnoses Pain Procedures XR HIP GENERAL 3V PELV/AP/LAT RIGHT RADEX HIP UNILATERAL WITH PELVIS 2-3 VIEWS Melina Doan APRN.SOCIAL SCIENCES RESEARCH SCIENTIST [address] [place] [address] [place] [address] Referral ID Status Reason Start Date Expiration Date V isits Requested Visits Authorized [id number] Closed Auto-Generate d Referral 09/18/2022 10/18/2023 1 1 [facility] Reason for Referral Specialty Diagnoses / Procedures Referred By Contac t Referred To Contact Diagnoses Persistent disorder of initiating or maintaining sleep Adeel Hayes MD [address] [place] [address] Referral ID Status Reason Start Date Expiration Date V isits Requested Visits Authorized [id number] Authorized 1 1 Specialty Diagnoses / Procedures Referred By Contac t Referred To Contact Orthopedics Diagnoses Pain Procedures CONSULT TO ORTHOPAEDICS OFFICE/OUTPATIENT [facility] 60-74 MINUTES Melina Doan APRN.SOCIAL SCIENCES RESEARCH SCIENTIST [address] [place] [address] Referral ID Status Reason Start Date Expiration Date Visits Requested Visits Authorized [id number] Authorized PCP Requested Referral 09/18/2023 1 1 Specialty Diagnoses / Procedures Referred By Contac t Referred To Contact XR IMAGING Diagnoses Pain Procedures XR HIP GENERAL 3V PELV/AP/LAT RIGHT RADEX HIP UNILATERAL WITH PELVIS 2-3 VIEWS Melina Doan APRN.SOCIAL SCIENCES RESEARCH SCIENTIST [address] [place] [address] Xr Imaging Referral ID Status Reason Start Date Expiration Date V isits Requested Visits Authorized [id number] Closed Auto-Generate d Referral 09/18/2022 10/18/2023 1 1 Specialty Diagnoses / Procedures Referred By Contac t Referred To Contact XR IMAGING Diagnoses Pain Procedures XR SACRUM/COCCYX 3V AP/LAT RADEX SACRUM & COCCYX MINIMUM 2 VIEWS Melina Doan APRN.SOCIAL SCIENCES RESEARCH SCIENTIST [address] [place] [address] Xr Imaging Referral ID Status Reason Start Date Expiration Date V isits Requested Visits Authorized [id number] Closed Auto-Generate d Referral 09/18/2022 10/18/2023 1 1 Specialty Diagnoses / Procedures Referred By Contac t Referred To Contact XR IMAGING Diagnoses Pain Procedures XR HAND GENERAL 3V PA/LAT/OBL RIGHT RADEX HAND MINIMUM 3 VIEWS Melina Doan, PACKING CLERK.SOCIAL SCIENCES RESEARCH SCIENTIST [address] [place] [address] Xr Imaging Referral ID Status Reason Start Date Expiration Date V isits Requested Visits Authorized [id number] Closed Auto-Generate d Referral 09/18/2022 10/18/2023 1 1 Specialty Diagnoses / Procedures Referred By Contac t Referred To Contact XR IMAGING Diagnoses Pain Procedures XR FOREARM GENERAL 2V AP/LAT RIGHT RADEX FOREARM 2 VIEWS Melina Doan, PACKING CLERK.SOCIAL SCIENCES RESEARCH SCIENTIST [address] [place] [address] Xr Imaging Referral ID Status Reason Start Date Expiration Date V isits Requested Visits Authorized [id number] Closed Auto-Generate d Referral 09/18/2022 10/18/2023 1 1 Specialty Diagnoses / Procedures Referred By Contac t Referred To Contact XR IMAGING Diagnoses Pain Procedures XR SHOULDER [id number] AP/TRUE AP RIGHT RADEX SHOULDER COMPLETE MINIMUM 2 VIEWS Melina Doan, PACKING CLERK.SOCIAL SCIENCES RESEARCH SCIENTIST [address] [place] [address] Xr Imaging Referral ID Status Reason Start Date Expiration Date V isits Requested Visits Authorized [id number] Closed Auto-Generate d Referral 09/18/2022 10/18/2023 1 1 Specialty Diagnoses / Procedures Referred By Contac t Referred To Contact Podiatry Diagnoses Toenail deformity Procedures CONSULT TO PODIATRY OFFICE/OUTPATIENT [facility] 60-74 MINUTES Enriqueta Otto, PACKING CLERK.CHHA [address] [place] [address] Referral ID Status Reason Start Date Expiration Date Visits Requested Visits Authorized [id number] Pending Review PCP Requested Referral 03/26/2023 03/25/2024 1 1 Specialty Diagnoses / Procedures Referred By Contac t Referred To Contact [facility] Diagnoses Gait instability Balance problems Repeated falls Status post right hip replacement Procedures CONSULT TO PHYSICAL THERAPY PHYSICAL THERAPY EVALUATION HIGH COMPLEX 45 MINS Destini Lee APRN.SOCIAL SCIENCES RESEARCH SCIENTIST [address] [place] [address] [facility] [address] [place] [address] Referral ID Status Reason Start Date Expiration Date Visits Requested Visits Authorized [id number] Pending Review Auto-Generat ed Referral 06/11/2024 06/11/2025 1 1 Specialty Diagnoses / Procedures Referred By Kevin huynh Referred To Contact Physical Therapy Diagnoses Weakness of both lower extremities Gait instability Primary osteoarthritis of both knees S/P total right hip arthroplasty Procedures CONSULT TO PHYSICAL THERAPY Adeel Hayes MD [address] [place] [address] Referral ID Status Reason Start Date Expiration Date Visits Requested Visits Authorized [id number] Authorized PCP Requested Referral 10/29/2024 10/29/2025 1 1 Advance Directives No Advanced Directives Records FoundDocuments on File Type Date Recorded 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 Advance Directive(s) 04/24/2016 3:37 PM Advance Directive(s) 11/23/2006 12:00 AM Documents on File Type Date Recorded 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 Advance Directive(s) 04/24/2016 3:37 PM Advance Directive(s) 11/23/2006 12:00 AM Documents on File Type Date Recorded 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 Advance Directive(s) 04/24/2016 3:37 PM Advance Directive(s) 11/23/2006 Documents on File Type Date Recorded 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 Advance Directive(s) 04/24/2016 3:37 PM Advance Directive(s) 11/23/2006 Advance Directive Response Recorded Date/ Time Advance Directives Yes June 8:34am Living Will Yes November 24 2:30pm Power of Electrician Apprentice Powerhouse Yes November 24, 2020 2:30pm Advance Directive [...] this informatio n is protected by the [facility] Confidentiality of Alcohol and Drug Abuse Patient Records regulations: The Federal rules restrict any use of the information to criminally investigate or prosecute any alcohol or drug abuse patient.[facility] the event this information is protected by the Federal Confidentiality of Alcohol and Drug Abuse Patient Records regulations: The Federal rules restrict any use of the information to criminally investigate or prosecute any alcohol or drug abuse patient.[facility] the event this information is protected by the Federal Confidentiality of Alcohol and Drug Abuse Patient Records regulations: The Federal rules restrict any use of the information to criminally investigate or prosecute any alcohol or drug abuse patient.[facility] the event this information is protected by the Federal Confidentiality of Alcohol and Drug Abuse Patient Records regulations: The Federal rules restrict any use of the information to criminally investigate or prosecute any alcohol or drug abuse patient.[facility] the event this information is protected by the Federal Confidentiality of Alcohol and Drug Abuse Patient Records regulations: The Federal rules restrict any use of the information to criminally investigate or prosecute any alcohol or drug abuse patient.[facility] the event this information is protected by the Federal Confidentiality of Alcohol and Drug Abuse Patient Records regulations: The Federal rules restrict any use of the information to criminally investigate or prosecute any alcohol or drug abuse patient.[facility] the event this information is protected by the Federal Confidentiality of Alcohol and Drug Abuse Patient Records regulations: The Federal rules restrict any use of the information to criminally investigate or prosecute any alcohol or drug abuse patient.[facility] the event this information is protected by the Federal Confidentiality of Alcohol and Drug Abuse Patient Records regulations: The Federal rules restrict any use of the information to criminally investigate or prosecute any alcohol or drug abuse patient.[facility] the event this information is protected by the Federal Confidentiality of Alcohol and Drug Abuse Patient Records regulations: The Federal rules restrict any use of the information to criminally investigate or prosecute any alcohol or drug abuse patient.[facility] the event this information is protected by the Federal Confidentiality of Alcohol and Drug Abuse Patient Records regulations: The Federal rules restrict any use of the information to criminally investigate or prosecute any alcohol or drug abuse patient.[facility] the event this information is protected by the Federal Confidentiality of Alcohol and Drug Abuse Patient Records regulations: The Federal rules restrict any use of the information to criminally investigate or prosecute any alcohol or drug abuse patient.[facility] the event this information is protected by the Federal Confidentiality of Alcohol and Drug Abuse Patient Records regulations: The Federal rules restrict any use of the information to criminally investigate or prosecute any alcohol or drug abuse patient.[facility] the event this information is protected by the Federal Confidentiality of Alcohol and Drug Abuse Patient Records regulations: The Federal rules restrict any use of the information to criminally investigate or prosecute any alcohol or drug abuse patient.[facility] the event this information is protected by the Federal Confidentiality of Alcohol and Drug Abuse Patient Records regulations: The Federal rules restrict any use of the information to criminally investigate or prosecute any alcohol or drug abuse patient.[facility] the event this information is protected by the Federal Confidentiality of Alcohol and Drug Abuse Patient Records regulations: The Federal rules restrict any use of the information to criminally investigate or prosecute any alcohol or drug abuse patient.[facility] the event this information is protected by the Federal Confidentiality of Alcohol and Drug Abuse Patient Records regulations: The Federal rules restrict any use of the information to criminally investigate or prosecute any alcohol or drug abuse patient.[facility] the event this information is protected by the Federal Confidentiality of Alcohol and Drug Abuse Patient Records regulations: The Federal rules restrict any use of the information to criminally investigate or prosecute any alcohol or drug abuse patient.[facility] the event this information is protected by the Federal Confidentiality of Alcohol and Drug Abuse Patient Records regulations: The Federal rules restrict any use of the information to criminally investigate or prosecute any alcohol or drug abuse patient.[facility] the event this information is protected by the Federal Confidentiality of Alcohol and Drug Abuse Patient Records regulations: The Federal rules restrict any use of the information to criminally investigate or prosecute any alcohol or drug abuse patient.[facility] the event this information is protected by the Federal Confidentiality of Alcohol and Drug Abuse Patient Records regulations: The Federal rules restrict any use of the information to criminally investigate or prosecute any alcohol or drug abuse patient.[facility] the event this information is protected by the Federal Confidentiality of Alcohol and Drug Abuse Patient Records regulations: The Federal rules restrict any use of the information to criminally investigate or prosecute any alcohol or drug abuse patient.[facility] the event this information is protected by the Federal Confidentiality of Alcohol and Drug Abuse Patient Records regulations: The Federal rules restrict any use of the information to criminally investigate or prosecute any alcohol or drug abuse patient.[facility] the event this information is protected by the Federal Confidentiality of Alcohol and Drug Abuse Patient Records regulations: The Federal rules restrict any use of the information to criminally investigate or prosecute any alcohol or drug abuse patient.[facility] the event this information is protected by the Federal Confidentiality of Alcohol and Drug Abuse Patient Records regulations: The Federal rules restrict any use of the information to criminally investigate or prosecute any alcohol or drug abuse patient.[facility] the event this information is protected by the Federal Confidentiality of Alcohol and Drug Abuse Patient Records regulations: The Federal rules restrict any use of the information to criminally investigate or prosecute any alcohol or drug abuse patient.[facility] the event this information is protected by the Federal Confidentiality of Alcohol and Drug Abuse Patient Records regulations: The Federal rules restrict any use of the information to criminally investigate or prosecute any alcohol or drug abuse patient.[facility] HospitalIn the event this information is protected by the Federal Confidentiality of Alcohol and Drug Abuse Patient Records regulations: The Federal rules restrict any use of the information to criminally investigate or prosecute any alcohol or drug abuse patient.[facility] HospitalIn the event this information is protected by the Federal Confidentiality of Alcohol and Drug Abuse Patient Records regulations: The Federal rules restrict any use of the information to criminally investigate or prosecute any alcohol or drug abuse patient.[facility] HospitalIn the event this information is protected by the Federal Confidentiality of Alcohol and Drug Abuse Patient Records regulations: The Federal rules restrict any use of the information to criminally investigate or prosecute any alcohol or drug abuse patient.[facility] HospitalIn the event this information is protected by the Federal Confidentiality of Alcohol and Drug Abuse Patient Records regulations: The Federal rules restrict any use of the information to criminally investigate or prosecute any alcohol or drug abuse patient.[facility] HospitalIn the event this information is protected by the Federal Confidentiality of Alcohol and Drug Abuse Patient Records regulations: The Federal rules restrict any use of the information to criminally investigate or prosecute any alcohol or drug abuse patient.[facility] HospitalIn the event this information is protected by the Federal Confidentiality of Alcohol and Drug Abuse Patient Records regulations: The Federal rules restrict any use of the information to criminally investigate or prosecute any alcohol or drug abuse patient.[facility] HospitalIn the event this information is protected by the Federal Confidentiality of Alcohol and Drug Abuse Patient Records regulations: The Federal rules restrict any use of the information to criminally investigate or prosecute any alcohol or drug abuse patient.[facility] HospitalIn the event this information is protected by the Federal Confidentiality of Alcohol and Drug Abuse Patient Records regulations: The Federal rules restrict any use of the information to criminally investigate or prosecute any alcohol or drug abuse patient.[facility] HospitalIn the event this information is protected by the Federal Confidentiality of Alcohol and Drug Abuse Patient Records regulations: The Federal rules restrict any use of the information to criminally investigate or prosecute any alcohol or drug abuse patient.[facility] the event this information is protected by the Federal Confidentiality of Alcohol and Drug Abuse Patient Records regulations: The Federal rules restrict any use of the information to criminally investigate or prosecute any alcohol or drug abuse patient.[facility] HospitalIn the event this information is protected by the Federal Confidentiality of Alcohol and Drug Abuse Patient Records regulations: The Federal rules restrict any use of the information to criminally investigate or prosecute any alcohol or drug abuse patient.[facility] HospitalIn the event this information is protected [...] or prosecute any alcohol or drug abuse patient.[facility] HospitalIn the event this information is protected by the Federal Confidentiality of Alcohol and Drug Abuse Patient Records regulations: The Federal rules restrict any use of the information to criminally investigate or prosecute any alcohol or drug abuse patient.[facility] HospitalIn the event this information is protected by the Federal Confidentiality of Alcohol and Drug Abuse Patient Records regulations: The Federal rules restrict any use of the information to criminally investigate or prosecute any alcohol or drug abuse patient.[facility] HospitalIn the event this information is protected by the Federal Confidentiality of Alcohol and Drug Abuse Patient Records regulations: The Federal rules restrict any use of the information to criminally investigate or prosecute any alcohol or drug abuse patient.[facility] HospitalIn the event this information is protected by the Federal Confidentiality of Alcohol and Drug Abuse Patient Records regulations: The Federal rules restrict any use of the information to criminally investigate or prosecute any alcohol or drug abuse patient.[facility] HospitalIn the event this information is protected by the Federal Confidentiality of Alcohol and Drug Abuse Patient Records regulations: The Federal rules restrict any use of the information to criminally investigate or prosecute any alcohol or drug abuse patient.[facility] HospitalIn the event this information is protected by the Federal Confidentiality of Alcohol and Drug Abuse Patient Records regulations: The Federal rules restrict any use of the information to criminally investigate or prosecute any alcohol or drug abuse patient.[facility] HospitalIn the event this information is protected by the Federal Confidentiality of Alcohol and Drug Abuse Patient Records regulations: The Federal rules restrict any use of the information to criminally investigate or prosecute any alcohol or drug abuse patient.[facility] HospitalIn the event this information is protected by the Federal Confidentiality of Alcohol and Drug Abuse Patient Records regulations: The Federal rules restrict any use of the information to criminally investigate or prosecute any alcohol or drug abuse patient.[facility] HospitalIn the event this information is protected by the Federal Confidentiality of Alcohol and Drug Abuse Patient Records regulations: The Federal rules restrict any use of the information to criminally investigate or prosecute any alcohol or drug abuse patient.[facility] HospitalIn the event this information is protected by the Federal Confidentiality of Alcohol and Drug Abuse Patient Records regulations: The Federal rules restrict any use of the information to criminally investigate or prosecute any alcohol or drug abuse patient.[facility] HospitalIn the event this information is protected by the Federal Confidentiality of Alcohol and Drug Abuse Patient Records regulations: The Federal rules restrict any use of the information to criminally investigate or prosecute any alcohol or drug abuse patient.[facility] HospitalIn the event this information is protected by the Federal Confidentiality of Alcohol and Drug Abuse Patient Records regulations: The Federal rules restrict any use of the information to criminally investigate or prosecute any alcohol or drug abuse patient.[facility] HospitalIn the event this information is protected by the Federal Confidentiality of Alcohol and Drug Abuse Patient Records regulations: The Federal rules restrict any use of the information to criminally investigate or prosecute any alcohol or drug abuse patient.[facility] HospitalIn the event this information is protected by the Federal Confidentiality of Alcohol and Drug Abuse Patient Records regulations: The Federal rules restrict any use of the information to criminally investigate or prosecute any alcohol or drug abuse patient.[facility] HospitalIn the event this information is protected by the Federal Confidentiality of Alcohol and Drug Abuse Patient Records regulations: The Federal rules restrict any use of the information to criminally investigate or prosecute any alcohol or drug abuse patient.[facility] HospitalIn the event this information is protected by the Federal Confidentiality of Alcohol and Drug Abuse Patient Records regulations: The Federal rules restrict any use of the information to criminally investigate or prosecute any alcohol or drug abuse patient.[facility] HospitalIn the event this information is protected by the Federal Confidentiality of Alcohol and Drug Abuse Patient Records regulations: The Federal rules restrict any use of the information to criminally investigate or prosecute any alcohol or drug abuse patient.[facility] HospitalIn the event this information is protected by the Federal Confidentiality of Alcohol and Drug Abuse Patient Records regulations: The Federal rules restrict any use of the information to criminally investigate or prosecute any alcohol or drug abuse patient.[facility] HospitalIn the event this information is protected by the Federal Confidentiality of Alcohol and Drug Abuse Patient Records regulations: The Federal rules restrict any use of the information to criminally investigate or prosecute any alcohol or drug abuse patient.[facility] HospitalIn the event this information is protected by the Federal Confidentiality of Alcohol and Drug Abuse Patient Records regulations: The Federal rules restrict any use of the information to criminally investigate or prosecute any alcohol or drug abuse patient.[facility] HospitalIn the event this information is protected by the Federal Confidentiality of Alcohol and Drug Abuse Patient Records regulations: The Federal rules restrict any use of the information to criminally investigate or prosecute any alcohol or drug abuse patient.[facility] HospitalIn the event this information is protected by the Federal Confidentiality of Alcohol and Drug Abuse Patient Records regulations: The Federal rules restrict any use of the information to criminally investigate or prosecute any alcohol or drug abuse patient.[facility] HospitalIn the event this information is protected by the Federal Confidentiality of Alcohol and Drug Abuse Patient Records regulations: The Federal rules restrict any use of the information to criminally investigate or prosecute any alcohol or drug abuse patient.[facility] HospitalIn the event this information is protected by the Federal Confidentiality of Alcohol and Drug Abuse Patient Records regulations: The Federal rules restrict any use of the information to criminally investigate or prosecute any alcohol or drug abuse patient.[facility] HospitalIn the event this information is protected by the Federal Confidentiality of Alcohol and Drug Abuse Patient Records regulations: The Federal rules restrict any use of the information to criminally investigate or prosecute any alcohol or drug abuse patient.[facility] HospitalIn the event this information is protected by the Federal Confidentiality of Alcohol and Drug Abuse Patient Records regulations: The Federal rules restrict any use of the information to criminally investigate or prosecute any alcohol or drug abuse patient.[facility] HospitalIn the event this information is protected by the Federal Confidentiality of Alcohol and Drug Abuse Patient Records regulations: The Federal rules restrict any use of the information to criminally investigate or prosecute any alcohol or drug abuse patient.[facility] HospitalIn the event this information is protected by the Federal Confidentiality of Alcohol and Drug Abuse Patient Records regulations: The Federal rules restrict any use of the information to criminally investigate or prosecute any alcohol or drug abuse patient.[facility] HospitalIn the event this information is protected by the Federal Confidentiality of Alcohol and Drug Abuse Patient Records regulations: The Federal rules restrict any use of the information to criminally investigate or prosecute any alcohol or drug abuse patient.[facility] HospitalIn the event this information is protected by the Federal Confidentiality of Alcohol and Drug Abuse Patient Records regulations: The Federal rules restrict any use of the information to criminally investigate or prosecute any alcohol or drug abuse patient.[facility] HospitalIn the event this information is protected by the Federal Confidentiality of Alcohol and Drug Abuse Patient Records regulations: The Federal rules restrict any use of the information to criminally investigate or prosecute any alcohol or drug abuse patient.[facility] HospitalIn the event this information is protected by the Federal Confidentiality of Alcohol and Drug Abuse Patient Records regulations: The Federal rules restrict any use of the information to criminally investigate or prosecute any alcohol or drug abuse patient.[facility] HospitalIn the event this information is protected by the Federal Confidentiality of Alcohol and Drug Abuse Patient Records regulations: The Federal rules restrict any use of the information to criminally investigate or prosecute any alcohol or drug abuse patient.[facility] HospitalIn the event this information is protected by the Federal Confidentiality of Alcohol and Drug Abuse Patient Records regulations: The Federal rules restrict any use of the information to criminally investigate or prosecute any alcohol or drug abuse patient.[facility] HospitalIn the event this information is protected by the Federal Confidentiality of Alcohol and Drug Abuse Patient Records regulations: The Federal rules restrict any use of the information to criminally investigate or prosecute any alcohol or drug abuse patient.[facility] HospitalIn the event this information is protected by the Federal Confidentiality of Alcohol and Drug Abuse Patient Records regulations: The Federal rules restrict any use of the information to criminally investigate or prosecute any alcohol or drug abuse patient.[facility] HospitalIn the event this information is protected by the Federal Confidentiality of Alcohol and Drug Abuse Patient Records regulations: The Federal rules restrict any use of the information to criminally investigate or prosecute any alcohol or drug abuse patient.[facility] HospitalIn the event this information is protected by the Federal Confidentiality of Alcohol and Drug Abuse Patient Records regulations: The Federal rules restrict any use of the information to criminally investigate or prosecute any alcohol or drug abuse patient.[facility] HospitalIn the event this information is protected by the Federal Confidentiality of Alcohol and Drug Abuse Patient Records regulations: The Federal rules restrict any use of the information to criminally investigate or prosecute any alcohol or drug abuse patient.[facility] HospitalIn the event this information is protected by the Federal Confidentiality of Alcohol and Drug Abuse Patient Records regulations: The Federal rules restrict any use of the information to criminally investigate or prosecute any alcohol or drug abuse patient.[facility] HospitalIn the event this information is protected by the Federal Confidentiality of Alcohol and Drug Abuse Patient Records regulations: The Federal rules restrict any use of the information to criminally investigate or prosecute any alcohol or drug abuse patient.[facility] HospitalIn the event this information is protected by the Federal Confidentiality of Alcohol and Drug Abuse Patient Records regulations: The Federal rules restrict any use of the information to criminally investigate or prosecute any alcohol or drug abuse patient.[facility] HospitalIn the event this information is protected by the Federal Confidentiality of Alcohol and Drug Abuse Patient Records regulations: The Federal rules restrict any use of the information to criminally investigate or prosecute any alcohol or drug abuse patient.[facility] HospitalIn the event this information is protected by the Federal Confidentiality of Alcohol and Drug Abuse Patient Records regulations: The Federal rules restrict any use of the information to criminally investigate or prosecute any alcohol or drug abuse patient.[facility] HospitalIn the event this information is protected by the Federal Confidentiality of Alcohol and Drug Abuse Patient Records regulations: The Federal rules restrict any use of the information to criminally investigate or prosecute any alcohol or drug abuse patient.[facility] HospitalIn the event this information is protected by the Federal Confidentiality of Alcohol and Drug Abuse Patient Records regulations: The Federal rules restrict any use of the information to criminally investigate or prosecute any alcohol or drug abuse patient.[facility] the event this information is protected by the Federal Confidentiality of Alcohol and Drug Abuse Patient Records regulations: The Federal rules restrict any use of the information to criminally investigate or prosecute any alcohol or drug abuse patient.[facility] HospitalIn the event this information is protected by the Federal Confidentiality of Alcohol and Drug Abuse Patient Records regulations: The Federal rules restrict any use of the information to criminally investigate or prosecute any alcohol or drug abuse patient.[facility] HospitalIn the event this information is protected [...] or prosecute any alcohol or drug abuse patient.[facility] HospitalIn the event this information is protected by the Federal Confidentiality of Alcohol and Drug Abuse Patient Records regulations: The Federal rules restrict any use of the information to criminally investigate or prosecute any alcohol or drug abuse patient.[facility] HospitalIn the event this information is protected by the Federal Confidentiality of Alcohol and Drug Abuse Patient Records regulations: The Federal rules restrict any use of the information to criminally investigate or prosecute any alcohol or drug abuse patient.[facility] HospitalIn the event this information is protected by the Federal Confidentiality of Alcohol and Drug Abuse Patient Records regulations: The Federal rules restrict any use of the information to criminally investigate or prosecute any alcohol or drug abuse patient.[facility] HospitalIn the event this information is protected by the Federal Confidentiality of Alcohol and Drug Abuse Patient Records regulations: The Federal rules restrict any use of the information to criminally investigate or prosecute any alcohol or drug abuse patient.[facility] HospitalIn the event this information is protected by the Federal Confidentiality of Alcohol and Drug Abuse Patient Records regulations: The Federal rules restrict any use of the information to criminally investigate or prosecute any alcohol or drug abuse patient.[facility] HospitalIn the event this information is protected by the Federal Confidentiality of Alcohol and Drug Abuse Patient Records regulations: The Federal rules restrict any use of the information to criminally investigate or prosecute any alcohol or drug abuse patient.[facility] Reason for Visit (unrecogniz ed section [...] New Specialty Diagnoses / Procedures Referred By Conttoya t Referred To Contact Podiatry Diagnoses Toenail deformity Procedures CONSULT TO PODIATRY OFFICE/OUTPATIENT NEW HIGH MDM 60-74 MINUTES Enriqueta Otto, ALLA.[facility] [address] [place] [address] Referral ID Status Reason Start Date Expiration Date Visits Requested Visits Authorized [id number] Pending Review PCP Requested Referral 03/26/2023 03/25/2024 [...] had hip replacement Reason Comments referral to [facility] Reason Comments Opened In [...] Care Teams (unrecognized sec tion and content) Market Relationship Manager Relationship Specialty Start Date End Date Adeel Hayes MD [address] [place] [phone] PCP - General 09/16/03 Market Relationship Manager Relationship Specialty Start Date End Date Adeel Hayes MD [address] [place] [phone] PCP - General 09/16/03 Market Relationship Manager Relationship Specialty Start Date End Date Adeel Hayes MD [address] [place] [address] [place] [address] PCP - General 09/16/03 Market Relationship Manager Relationship Specialty Start Date End Date Adeel Hayes MD [facility] [place] [address] PCP - General 09/16/03 Market Relationship Manager Relationship Specialty Start Date End Date Adeel Hayes MD [address] [place] [address] [place] [address] PCP - General 09/16/03 Market Relationship Manager Relationship Specialty Start Date End Date Adeel Hayes MD [address] [place] [phone] PCP - General 09/16/03 Market Relationship Manager Relationship Specialty Start Date End Date Adeel Hayes MD [address] [place] [address] PCP - General 09/16/03 Market Relationship Manager Relationship Specialty Start Date End Date Adeel Hayes MD [address] [place] [address] PCP - General 09/16/03 Market Relationship Manager Relationship Specialty Start Date End Date Adeel Hayes MD [address] [place] [address], [place] [address] PCP - General 09/16/03 Market Relationship Manager Relationship Specialty Start Date End Date Adeel Hayes MD [address] [place] [address], [place] [address] PCP - General 09/16/03 Market Relationship Manager Relationship Specialty Start Date End Date Adeel Hayes MD [address] [place] [address], [place] [address] PCP - General 09/16/03 Market Relationship Manager Relationship Specialty Start Date End Date Adeel Hayes MD [address] [place] [address], [place] [address] PCP - General 09/16/03 Market Relationship Manager Relationship Specialty Start Date End Date Adeel Hayes MD [facility] [place] [address] PCP - General 09/16/03 Market Relationship Manager Relationship Specialty Start Date End Date Adeel Hayes MD [address] [place] [address], [place] [address] PCP - General 09/16/03 Market Relationship Manager Relationship Specialty Start Date End Date Adeel Hayes MD [address] [place] [address], [place] [address] PCP - General 09/16/03 Market Relationship Manager Relationship Specialty Start Date End Date Adeel Hayes MD [address] [place], [place] [id number] PCP - General 09/16/03 Team Status: Active [...] Adeel Hayes MD Primary Care Provider Active Jereym OWEN PA-C Attending Provider, Referring Pr ovider Active Market Relationship Manager Relationship Specialty Start Date End Date Adeel Hayes MD [address] [place] [address] PCP - General 09/16/03 Market Relationship Manager Relationship Specialty Start Date End Date Adeel Hayes MD [address] [place], [place] [address] [phone] PCP - General 09/16/03 Market Relationship Manager Relationship Specialty Start Date End Date Adeel Hayes MD [address] [place] [address] PCP - General 09/16/03 Market Relationship Manager Relationship Specialty Start Date End Date Adeel Hayes MD [address] [place], [place] [address] [phone] PCP - General 09/16/03 Market Relationship Manager Relationship Specialty Start Date End Date Adeel Hayes MD [address] [place] [address] PCP - General 09/16/03 Market Relationship Manager Relationship Specialty Start Date End Date Adeel Hayes MD [address] [place] [address] PCP - General 09/16/03 Market Relationship Manager Relationship Specialty Start Date End Date Adeel Hayes MD [address] [place] [address] PCP - General 09/16/03 Market Relationship Manager Relationship Specialty Start Date End Date Adeel Hayes MD [address] [place] [address] PCP - General 09/16/03 Market Relationship Manager Relationship Specialty Start Date End Date Adeel Hayes MD [address] [place] [address] PCP - General 09/16/03 Market Relationship Manager Relationship Specialty Start Date End Date Adeel Hayes MD [address] [place] [address] PCP - General 09/16/03 Market Relationship Manager Relationship Specialty Start Date End Date Adeel Hayes MD [address] [place] [address] PCP - General 09/16/03 Market Relationship Manager Relationship Specialty Start Date End Date Adeel Hayes MD [address] [place] [address] PCP - General 09/16/03 Market Relationship Manager Relationship Specialty Start Date End Date Adeel Hayes MD [address] [place] [address] PCP - General 09/16/03 Market Relationship Manager Relationship Specialty Start Date End Date Adeel Hayes MD [address] [place] [address] PCP - General 09/16/03 Market Relationship Manager Relationship Specialty Start Date End Date Adeel Hayes MD [address] [place] [address] PCP - General 09/16/03 Market Relationship Manager Relationship Specialty Start Date End Date Adeel Hayes MD [address] [place] [address] PCP - General 09/16/03 Market Relationship Manager Relationship Specialty Start Date End Date Adeel Hayes MD [address] [place] [address] PCP - General 09/16/03 Market Relationship Manager Relationship Specialty Start Date End Date Adeel Hayes MD [address] [place] [address] PCP - General 09/16/03 Market Relationship Manager Relationship Specialty Start Date End Date Adeel Hayes MD [address] [place] [address] PCP - General 09/16/03 Market Relationship Manager Relationship Specialty Start Date End Date Adeel Hayes MD [address] [place] [address] PCP - General 09/16/03 Market Relationship Manager Relationship Specialty Start Date End Date Adeel Hayes MD [address] [place] [address] PCP - General 09/16/03 Market Relationship Manager Relationship Specialty Start Date End Date Adeel Hayes MD [address] [place] [address] PCP - General 09/16/03 Market Relationship Manager Relationship Specialty Start Date End Date Adeel Hayes MD [address] [place] [address] PCP - General 09/16/03 Market Relationship Manager Relationship Specialty Start Date End Date Adeel Hayes MD [address] [place] [address] PCP - General 09/16/03 Market Relationship Manager Relationship Specialty Start Date End Date Adeel Hayes MD [address] [place] [address] PCP - General 09/16/03 Enriqutea Otto, PACKING CLERK.CHHA [address] [place] [address] Skip Loader Internal Medicine 09/15/24 Destini Lee, PACKING CLERK.SOCIAL SCIENCES RESEARCH SCIENTIST [address] [place] [address] Skip Loader Internal Medicine 09/15/24 Market Relationship Manager Relationship Specialty Start Date End Date Adeel Hayes MD [address] [place] [address] PCP - General 09/16/03 Enriqueta Otto, PACKING CLERK.CHHA [address] [place] [address] Skip Loader Internal Medicine 09/15/24 Destini Lee PACKING CLERK.SOCIAL SCIENCES RESEARCH SCIENTIST [address] [place] [address] [facility] Internal Medicine 09/15/24 Market Relationship Manager Relationship Specialty Start Date End Date Adeel Hayes MD [address] [place] [address] PCP - General 09/16/03 Enriqueta Otto, PACKING CLERK.CHHA [address] [place] [address] [facility] Internal Medicine 09/15/24 Destini Lee PACKING CLERK.SOCIAL SCIENCES RESEARCH SCIENTIST [address] [place] [address] [facility] Internal Medicine 09/15/24 Market Relationship Manager Relationship Specialty Start Date End Date Adeel Hayes MD [address] [place] [address] PCP - General 09/16/03 Enriqueta Otto, PACKING CLERK.CHHA [address] [place] [address] [facility] Internal Medicine 09/15/24 Destini Lee PACKING CLERK.SOCIAL SCIENCES RESEARCH SCIENTIST [address] [place] [address] [facility] Internal Medicine 09/15/24 Market Relationship Manager Relationship Specialty Start Date End Date Adeel Hayes MD [address] [place] [address] PCP - General 09/16/03 Enriqueta Otto, PACKING CLERK.CHHA [address] [place] [address] Skip Loader Internal Medicine 09/15/24 Destini Lee APRN.SOCIAL SCIENCES RESEARCH SCIENTIST [address] [facility] [address] Skip Loader Internal Medicine 09/15/24 Market Relationship Manager Relationship Specialty Start Date End Date Adeel Hayes MD [address] [place] [address] PCP - General 09/16/03 Enriqueta Otto, PACKING CLERK.CHHA [address] [place] [address] Skip Loader Internal Medicine 09/15/24 Destini Lee APRN.SOCIAL SCIENCES RESEARCH SCIENTIST [address] [place] [address] Skip Loader Internal Medicine 09/15/24 Market Relationship Manager Relationship Specialty Start Date End Date Adeel Hayes MD [address] [place] [address] PCP - General 09/16/03 Enriqueta Otto, PACKING CLERK.CHHA [address] [place] [address] Skip Loader Internal Medicine 09/15/24 Destini Lee APRN.SOCIAL SCIENCES RESEARCH SCIENTIST [address] [facility] [address] Skip Loader Internal Medicine 09/15/24 Market Relationship Manager Relationship Specialty Start Date End Date Adeel Hayes MD [address] [place] [address] PCP - General 09/16/03 Enriqueta Otto, PACKING CLERK.CHHA [address] [facility] [place] [address] Skip Loader Internal Medicine 09/15/24 Destini Lee PACKING CLERK.SOCIAL SCIENCES RESEARCH SCIENTIST [address] [place] [address] Skip Loader Internal Medicine 09/15/24 Market Relationship Manager Relationship Specialty Start Date End Date Adeel Hayes MD [address] [place] [address] PCP - General 09/16/03 Enriqueta Otto, PACKING CLERK.CHHA [address] [place] [address] Skip Loader Internal Medicine 09/15/24 Destini Lee PACKING CLERK.SOCIAL SCIENCES RESEARCH SCIENTIST [address] [place] [address] Skip Loader Internal Medicine 09/15/24 Market Relationship Manager Relationship Specialty Start Date End Date Adeel Hayes MD [address] [place] [address] PCP - General 09/16/03 Enriqueta Otto, PACKING CLERK.CHHA [address] [place] [address] Skip Loader Internal Medicine 09/15/24 Destini Lee PACKING CLERK.SOCIAL SCIENCES RESEARCH SCIENTIST [address] [place] [address] Skip Loader Internal Medicine 12/30/24 Market Relationship Manager Relationship Specialty Start Date End Date Adeel Hayes MD [address] [place] [address] PCP - General 09/16/03 Enriqueta Otto, PACKING CLERK.CHHA [address] [place] [address] Skip Loader Internal Medicine 09/15/24 Destini Lee PACKING CLERK.SOCIAL SCIENCES RESEARCH SCIENTIST [address] [place] [address] Skip Loader Internal Medicine 12/30/24 Market Relationship Manager Relationship Specialty Start Date End Date Adeel Hayse MD [address] [place] [address] PCP - General 09/16/03 Destini Lee APRN.SOCIAL SCIENCES RESEARCH SCIENTIST [address] [place] [address] Skip Loader Internal Medicine 12/30/24 Enriqueta Otto, PACKING CLERK.CHHA [address] [place] [address] Skip Loader Internal Medicine 02/25/25 Market Relationship Manager Relationship Specialty Start Date End Date Adeel Hayes MD [address] [place] [address] PCP - General 09/16/03 Destini Lee APRN.SOCIAL SCIENCES RESEARCH SCIENTIST [address] [place] [address] Skip Loader Internal Medicine 12/30/24 Enriqueta Otto, PACKING CLERK.CHHA [address] [place] [address] Skip Loader Internal Medicine 02/25/25 Market Relationship Manager Relationship Specialty Start Date End Date Adeel Hayes MD [address] [place] [address] PCP - General 09/16/03 Destini Lee APRN.SOCIAL SCIENCES RESEARCH SCIENTIST [address] [facility] [place] [address] Skip Loader Internal Medicine 12/30/24 Enriqueta Otto APRN.CHHA [address] [place] [address] Skip Loader Internal Medicine 02/25/25 Market Relationship Manager Relationship Specialty Start Date End Date Adeel Hayes MD [address] [place] [address] PCP - General 09/16/03 Destini Lee APRN.SOCIAL SCIENCES RESEARCH SCIENTIST [address] [place] [address] Skip Loader Internal Medicine 12/30/24 Enriqueta Otto, PACKING CLERK.CHHA [address] [place] [address] Skip Loader Internal Medicine 02/25/25 Market Relationship Manager Relationship Specialty Start Date End Date Adeel Hayes MD [address] [place] [address] PCP - General 09/16/03 Destini Lee APRN.SOCIAL SCIENCES RESEARCH SCIENTIST [address] [place] [address] Skip Loader Internal Medicine 12/30/24 Enriqueta Otto, PACKING CLERK.CHHA [address] [place] [address] [facility] Internal Medicine 02/25/25 Team Status: Active Member Role/Relationship Status Dates Dr. Adeel Hayes MD Family Provider Active Dr. Adeel Hayes MD Primary Care Provider Active Team Status: Inactive Member Role/Relationship Status Dates Dr. Adeel Hayes MD Primary Care Provider Active Start: April 09, 2025 End: April 09, 2025 Adele LAUGHLIN MD Attending Provider Active Start: April 09, 2025 End: April 09, 2025 Market Relationship Manager Relationship Specialty Start Date End Date Adeel Hayes MD [address] [place] [address] PCP - General 09/16/03 Destini Lee APRN.SOCIAL SCIENCES RESEARCH SCIENTIST [address] [place] [address] Skip Loader Internal Medicine 12/30/24 Enriqueta Otto, PACKING CLERK.CHHA [address] [place] [address] [facility] Internal Medicine 02/25/25 Market Relationship Manager Relationship Specialty Start Date End Date Adeel Hayes MD [address] [place] [address] PCP - General 09/16/03 Destini Lee APRN.SOCIAL SCIENCES RESEARCH SCIENTIST [address] [place] [address] Skip Loader Internal Medicine 12/30/24 Enriqueta Otto, PACKING CLERK.CHHA [address] [place] [address] Skip Loader Internal Medicine 02/25/25 Goals (unrecognized section and content) Goals may be documented in a n alternate sectionGoals may be documented in an alternate sectionGoals may be documented in an alternate section INFORMATION SOURCE (unrecogn ized section and content) DATE CREATED AUTHOR 07/22/2025 [facility] DATE CREATED AUTHOR AUTHOR'S FREDDY ATION 08/06/2025 [facility] FOR RECORDS PERTAINING TO PATIENTS [...] BE BASED ON THE PRIMARY CLINICAL RECORDS. [employer] provides no warranty or guarantee of the accuracy or completeness of information in this document.
[2025-09-29 07:46] LABS: Hematocrit 36.4 % (37-47); Hemoglobin 11.7 g/dL (12.0-15.0); Immature Granulocytes Count 0.020 X10^3/uL (0.0-0.0); Mean Corp Hgb Conc 32.1 g/dL (32-36); Mean Corpuscular Volume 93.3 fL (81-99); Mean Platelet Vol. 10.2 fl (6.2-12.0); NRBC Flagged by Analyzer 0 % (0-5); Platelet Count 244 K/mm3 (150-450); RBC Distribution Width CV 12.6 % (11.6-14.6); RBC Distribution Width SD 42.9 fl (35.1-43.9); Red Blood Count 3.90 M/mm3 (4.2-5.4); White Blood Count 6.3 K/mm3 (4.4-11.0)
[2025-09-29 08:00] LABS: Anion Gap 11 (7-18); BUN 22 mg/dL (4-19); BUN/Creat Ratio 25.9 RATIO (10-20); Calcium,Total 9.3 mg/dL (7.6-11.0); Carbon Dioxide 26.0 mmol/L (20.0-29.0); Chloride 104 mmol/L (96-106); Glucose 96 mg/dL (70-99); Potassium 3.5 mmol/L (3.5-5.1)
== END ==
LOC: OLS.WHLTCC 04:00
PROVIDERS: PCP Internal Medicine; Referring Provider Internal Medicine; Visit Provider Internal Medicine
DX: I10 Essential (primary) hypertension (principal)
CPT/HCPCS: 36415; 80048; 85025

== ENCOUNTER → 2025-10-06 05:00 | Outpatient (REF) | payer OTHER, SELFPAY ==
[2025-10-06 07:57] LABS: Hematocrit 38.4 % (37-47); Hemoglobin 12.6 g/dL (12.0-15.0); Immature Granulocytes Count 0.030 X10^3/uL (0.0-0.0); Mean Corp Hgb Conc 32.8 g/dL (32-36); Mean Corpuscular Volume 92.3 fL (81-99); Mean Platelet Vol. 10.4 fl (6.2-12.0); NRBC Flagged by Analyzer 0 % (0-5); Platelet Count 308 K/mm3 (150-450); RBC Distribution Width CV 12.6 % (11.6-14.6); RBC Distribution Width SD 42.3 fl (35.1-43.9); Red Blood Count 4.16 M/mm3 (4.2-5.4); White Blood Count 8.3 K/mm3 (4.4-11.0)
[2025-10-06 08:09] LABS: Anion Gap 13 (7-18); BUN 27 mg/dL (4-19); BUN/Creat Ratio 31.0 RATIO (10-20); Calcium,Total 9.7 mg/dL (7.6-11.0); Carbon Dioxide 24.7 mmol/L (20.0-29.0); Chloride 102 mmol/L (96-106); Glucose 97 mg/dL (70-99); Potassium 3.6 mmol/L (3.5-5.1)
== END ==
LOC: OLS.WHLTCC 05:00
PROVIDERS: PCP Internal Medicine; Visit Provider Internal Medicine
DX: S06.9X0D Unspecified intracranial injury without loss of consciousness, subsequent encounter (principal); M48.061 Spinal stenosis, lumbar region without neurogenic claudication; S16.1XXD Strain of muscle, fascia and tendon at neck level, subsequent encounter; I10 Essential (primary) hypertension
CPT/HCPCS: 36415; 80048; 85025